=== PATIENT | male | born 1975 | race Caucasian/White ===

== ENCOUNTER 2018-04-09 08:41 | Outpatient (CLI) | payer OTHER, SELFPAY ==
[2018-04-09 10:04] LABS: Hemoglobin A1C 5.8 % (4.5-6.2)
[2018-04-09 10:17] LABS: ALT 63 U/L (12-78); AST 31 U/L (15-37); Albumin 3.8 g/dL (3.4-5.0); Alkaline Phosphatase 57 U/L (46-116); Anion Gap 6.1 mmol/L (3-11); BUN 13 mg/dL (7-18); Bilirubin, Total 0.7 mg/dL (0.2-1.0); CO2 30.9 mmol/L (21.0-32.0); CREATININE 0.99 mg/dL (0.70-1.30); Calcium 9.6 mg/dL (8.5-10.1); Chloride 103 mmol/L (98-107); Cholesterol 182 mg/dL (50-200); Glucose 107 mg/dL (70-100); HDL Cholesterol 37 mg/dL (40-60); LDL CHOLESTEROL 101 mg/dL (<100); Potassium 4.7 mmol/L (3.5-5.1); Sodium 140 mmol/L (136-145); Total Protein 7.2 g/dL (6.4-8.2); Triglyceride 219 mg/dL (30-150)
== END 2018-04-09 09:01 ==
PROVIDERS: PCP Family Medicine; Visit Provider Family Medicine
DX: Z00.00 Encounter for general adult medical examination without abnormal findings (principal); E78.5 Hyperlipidemia, unspecified
CPT/HCPCS: 36415; 80053; 80061; 83721; 83036

== ENCOUNTER 2018-08-27 01:58 | Outpatient (CLI) | payer OTHER, SELFPAY ==
--- NOTE | 2018-08-27 12:16 | DI.US_ITS ---
SYMPTOM/DIAGNOSIS: ENLARGING LEFT ANTERIOR CHAIN LYMPH NODE R59.0. CERVICAL LYMPHADENOPATHY ULTRASOUND OF THE NECK: Comparison is made with CT dated 05 June 2017. There is mass in the lateral left neck 7 cm inferior to the ear which has an irregular heterogeneous appearance. This was not seen on the previous CT. There is an adjacent lymph node which shows loss of fatty hilum and measures 1.4 cm in maximal dimension An additional 1.3 cm lymph node is seen. IMPRESSION: Suspicious appearing mass in the lateral aspect of the neck. Adjacent mildly enlarged lymph nodes. CT is recommended for further evaluation.
== END 2018-08-27 02:18 ==
PROVIDERS: PCP Family Medicine; Visit Provider Family Medicine
DX: R59.0 Localized enlarged lymph nodes (principal); R22.1 Localized swelling, mass and lump, neck
CPT/HCPCS: 76536

== ENCOUNTER 2018-09-11 07:58 | Outpatient (CLI) | payer OTHER, SELFPAY ==
[2018-09-11 08:32] LABS: Abs Immature Grans 0.01 k/cumm (0.0-0.09); Absolute Basophil Count 0.04 k/cumm (0.0-0.2); Absolute Eosinophil Count 0.29 k/cumm (0.0-0.7); Absolute Lymphocyte Count 1.88 k/cumm (1.2-3.4); Absolute Monocyte Count 0.47 k/cumm (0.11-0.7); Absolute Neutrophil Count 3.38 k/cumm (1.2-6.7); Basophils % 0.7; Eosinophils % 4.8; HCT 43.7 % (40.0-50.0); HGB 15.2 g/dL (13.5-17.5); Immature Grans % 0.2; Mean Corp. HGB Concentration 34.8 g/dL (32.0-36.0); Mean Corpuscular Hemoglobin 31.5 pg (27.0-33.0); Mean Corpuscular Volume 90.7 fL (80-95); Mean Platelet Volume 9.2 fL (8.0-11.0); Monocytes % 7.7; Neutrophils % 55.6; Platelet Count 192 x1000/uL (130-400); RBC 4.82 m/cumm (4.50-6.00); RBC Distribution Width 12.2 % (11.8-14.1); White Blood Cell Count 6.07 k/cumm (4.4-10.8)
== END 2018-09-11 08:18 ==
PROVIDERS: PCP Family Medicine; Visit Provider Family Medicine
DX: R22.1 Localized swelling, mass and lump, neck (principal)
CPT/HCPCS: 36415; 85025

== ENCOUNTER 2018-09-21 01:05 | Outpatient (CLI) | payer OTHER, SELFPAY ==
--- NOTE | 2018-09-21 08:47 | DI.CT_ITS ---
SYMPTOM/DIAGNOSIS: LEFT SIDED NECK MASS ON U/S OF NECK. R22.1 LOCALIZED SWELLING/MASS/LUMP CT NECK: Multiple contiguous axial images of the neck were obtained. Sagittal and coronal reformatted images were evaluated on the Siemens work station. Comparison is 06/2017 The nasopharynx, oral pharynx, hypopharynx and larynx are unremarkable. The parotid and submandibular glands are unremarkable. The thyroid gland is unremarkable. There has been interval increase in size of a soft tissue mass at the level of the left carotid bifurcation. It now measures 2.6 cm AP x 2.1 cm transverse x 3.2 cm craniocaudad. Previously it measured 1.7 x 1.4 cm Currently it compresses the adjacent left internal jugular vein. There is loss of a fat plane between the mass and the adjacent sternocleidomastoid muscle. The adjacent carotid arteries are unremarkable. There is an enlarged lymph node seen posteriorly and superiorly to the mass measuring 0.9 cm on a short axis. There are enlarged lymph nodes seen adjacent to the submandibular gland on the left measuring 1.2 cm in short axis diameter. No significant right cervical adenopathy is appreciated. The orbits and retro-orbital soft tissues are unremarkable. The visualized paranasal sinuses are clear as are the mastoid air cells. The bones are intact. The cervical spine appears grossly unremarkable. IMPRESSION: Nonenhancing soft tissue mass in the left neck which has shown interval increase in size. Differential considerations include infectious or inflammatory adenopathy, neoplasm or metastatic disease. Biopsy may be considered for further evaluation.
[2018-09-21] MEDS: Omnipaque 350 MG/ML 100 ML BTL IJ (09:37)
== END 2018-09-21 01:25 ==
PROVIDERS: PCP Family Medicine; Visit Provider Family Medicine
DX: R22.1 Localized swelling, mass and lump, neck (principal); R59.0 Localized enlarged lymph nodes
CPT/HCPCS: 70491; J3490

== ENCOUNTER 2018-12-31 13:44 | Outpatient (CLI) | payer OTHER, SELFPAY ==
[2018-12-31 14:16] LABS: CREATININE 1.04 mg/dL (0.70-1.30)
== END 2018-12-31 14:04 ==
PROVIDERS: PCP Family Medicine; Visit Provider Preventive Medicine Undersea and Hyperbaric Medicine
DX: C09.9 Malignant neoplasm of tonsil, unspecified (principal)
CPT/HCPCS: 36415; 82565

== ENCOUNTER 2019-01-04 12:52 | Outpatient (CLI) | payer OTHER, SELFPAY ==
[2019-01-04 13:18] LABS: Abs Immature Grans 0.01 k/cumm (0.0-0.09); Absolute Basophil Count 0.03 k/cumm (0.0-0.2); Absolute Lymphocyte Count 1.78 k/cumm (1.2-3.4); Absolute Monocyte Count 0.45 k/cumm (0.11-0.7); Basophils % 0.5; Eosinophils % 3.2; HCT 41.5 % (40.0-50.0); HGB 14.2 g/dL (13.5-17.5); Immature Grans % 0.2; Lymphocytes % 28.8; Mean Corp. HGB Concentration 34.2 g/dL (32.0-36.0); Mean Corpuscular Hemoglobin 30.9 pg (27.0-33.0); Mean Corpuscular Volume 90.4 fL (80-95); Mean Platelet Volume 8.7 fL (8.0-11.0); Monocytes % 7.3; Platelet Count 251 x1000/uL (130-400); RBC 4.59 m/cumm (4.50-6.00); RBC Distribution Width 12.4 % (11.8-14.1); White Blood Cell Count 6.17 k/cumm (4.4-10.8)
[2019-01-04 13:26] LABS: ALT 51 U/L (16-63); AST 18 U/L (15-37); Albumin 3.8 g/dL (3.4-5.0); Alkaline Phosphatase 56 U/L (46-116); BUN 9 mg/dL (7-18); Bilirubin, Total 0.4 mg/dL (0.2-1.0); CREATININE 1.03 mg/dL (0.70-1.30); Calcium 8.9 mg/dL (8.5-10.1); Chloride 105 mmol/L (98-107); Glucose 138 mg/dL (70-100); Magnesium 1.9 mg/dL (1.8-2.4); Potassium 3.7 mmol/L (3.5-5.1); Sodium 141 mmol/L (136-145); Total Protein 7.1 g/dL (6.4-8.2)
== END 2019-01-04 13:12 ==
PROVIDERS: PCP Family Medicine; Visit Provider Internal Medicine Hematology & Oncology
DX: C09.9 Malignant neoplasm of tonsil, unspecified (principal)
CPT/HCPCS: 80053; 83735; 85025

== ENCOUNTER 2019-01-18 10:47 | Outpatient (CLI) | payer OTHER, SELFPAY ==
[2019-01-18 11:27] LABS: Anion Gap 6.5 mmol/L (3-11); BUN 15 mg/dL (7-18); CO2 29.5 mmol/L (21.0-32.0); CREATININE 1.07 mg/dL (0.70-1.30); Calcium 8.7 mg/dL (8.5-10.1); Chloride 107 mmol/L (98-107); Glucose 109 mg/dL (70-100); Magnesium 1.9 mg/dL (1.8-2.4); Potassium 3.6 mmol/L (3.5-5.1); Sodium 143 mmol/L (136-145)
== END 2019-01-18 11:07 ==
PROVIDERS: PCP Family Medicine; Visit Provider Internal Medicine Hematology & Oncology
DX: C09.9 Malignant neoplasm of tonsil, unspecified (principal)
CPT/HCPCS: 36415; 80048; 83735

== ENCOUNTER 2019-01-25 09:27 | Outpatient (CLI) | payer OTHER, SELFPAY ==
[2019-01-25 10:23] LABS: Abs Immature Grans 0.01 k/cumm (0.0-0.09); Absolute Basophil Count 0.03 k/cumm (0.0-0.2); Absolute Eosinophil Count 0.13 k/cumm (0.0-0.7); Absolute Lymphocyte Count 0.83 k/cumm (1.2-3.4); Absolute Monocyte Count 0.69 k/cumm (0.11-0.7); Absolute Neutrophil Count 4.83 k/cumm (1.2-6.7); Basophils % 0.5; HCT 39.2 % (40.0-50.0); HGB 13.7 g/dL (13.5-17.5); Immature Grans % 0.2; Lymphocytes % 12.7; Mean Corp. HGB Concentration 34.9 g/dL (32.0-36.0); Mean Corpuscular Hemoglobin 31.6 pg (27.0-33.0); Mean Corpuscular Volume 90.3 fL (80-95); Mean Platelet Volume 8.5 fL (8.0-11.0); Monocytes % 10.6; Platelet Count 194 x1000/uL (130-400); RBC 4.34 m/cumm (4.50-6.00); RBC Distribution Width 11.4 % (11.8-14.1); White Blood Cell Count 6.52 k/cumm (4.4-10.8)
[2019-01-25 10:30] LABS: Anion Gap 5.4 mmol/L (3-11); BUN 16 mg/dL (7-18); CO2 29.6 mmol/L (21.0-32.0); CREATININE 1.19 mg/dL (0.70-1.30); Calcium 9.2 mg/dL (8.5-10.1); Chloride 101 mmol/L (98-107); Glucose 105 mg/dL (74-106); Magnesium 2.2 mg/dL (1.8-2.4); Potassium 4.4 mmol/L (3.5-5.1); Sodium 136 mmol/L (136-145)
== END 2019-01-25 09:47 ==
PROVIDERS: PCP Family Medicine; Visit Provider Internal Medicine Hematology & Oncology
DX: C09.9 Malignant neoplasm of tonsil, unspecified (principal)
CPT/HCPCS: 36415; 80048; 83735; 85025

== ENCOUNTER 2019-01-30 11:38 | Outpatient (CLI) | payer OTHER, SELFPAY ==
[2019-01-30 12:28] LABS: Abs Immature Grans 0.01 k/cumm (0.0-0.09); Absolute Basophil Count 0.01 k/cumm (0.0-0.2); Absolute Eosinophil Count 0.05 k/cumm (0.0-0.7); Absolute Lymphocyte Count 0.52 k/cumm (1.2-3.4); Absolute Monocyte Count 0.16 k/cumm (0.11-0.7); Absolute Neutrophil Count 6.17 k/cumm (1.2-6.7); Basophils % 0.1; Eosinophils % 0.7; HCT 36.8 % (40.0-50.0); HGB 12.5 g/dL (13.5-17.5); Immature Grans % 0.1; Lymphocytes % 7.5; Mean Corpuscular Hemoglobin 31.1 pg (27.0-33.0); Mean Corpuscular Volume 91.5 fL (80-95); Mean Platelet Volume 8.7 fL (8.0-11.0); Monocytes % 2.3; Neutrophils % 89.3; Platelet Count 185 x1000/uL (130-400); RBC 4.02 m/cumm (4.50-6.00); White Blood Cell Count 6.92 k/cumm (4.4-10.8)
[2019-01-30 12:40] LABS: Anion Gap 7.1 mmol/L (3-11); BUN 10 mg/dL (7-18); CO2 29.9 mmol/L (21.0-32.0); CREATININE 0.96 mg/dL (0.70-1.30); Calcium 8.7 mg/dL (8.5-10.1); Chloride 103 mmol/L (98-107); Glucose 100 mg/dL (74-106); Magnesium 1.9 mg/dL (1.8-2.4); Potassium 4.4 mmol/L (3.5-5.1); Sodium 140 mmol/L (136-145)
== END 2019-01-30 11:58 ==
PROVIDERS: PCP Family Medicine; Visit Provider Internal Medicine Hematology & Oncology
DX: C09.9 Malignant neoplasm of tonsil, unspecified (principal)
CPT/HCPCS: 36415; 80048; 83735; 85025

== ENCOUNTER 2019-02-06 08:21 | Outpatient (CLI) | payer OTHER, SELFPAY ==
[2019-02-06 08:40] LABS: Absolute Basophil Count 0.01 k/cumm (0.0-0.2); Absolute Eosinophil Count 0.14 k/cumm (0.0-0.7); Absolute Lymphocyte Count 0.55 k/cumm (1.2-3.4); Absolute Monocyte Count 0.54 k/cumm (0.11-0.7); Absolute Neutrophil Count 1.29 k/cumm (1.2-6.7); Basophils % 0.4; Eosinophils % 5.5; HCT 38.9 % (40.0-50.0); HGB 13.4 g/dL (13.5-17.5); Lymphocytes % 21.7; Mean Corp. HGB Concentration 34.4 g/dL (32.0-36.0); Mean Corpuscular Hemoglobin 31.2 pg (27.0-33.0); Mean Corpuscular Volume 90.5 fL (80-95); Mean Platelet Volume 7.7 fL (8.0-11.0); Monocytes % 21.3; Neutrophils % 51.1; Platelet Count 163 x1000/uL (130-400); RBC Distribution Width 12.2 % (11.8-14.1); White Blood Cell Count 2.53 k/cumm (4.4-10.8)
[2019-02-06 08:52] LABS: ALT 46 U/L (16-63); AST 30 U/L (15-37); Albumin 3.5 g/dL (3.4-5.0); Alkaline Phosphatase 59 U/L (46-116); BUN 11 mg/dL (7-18); Bilirubin, Total 0.3 mg/dL (0.2-1.0); CREATININE 1.06 mg/dL (0.70-1.30); Calcium 9.2 mg/dL (8.5-10.1); Chloride 101 mmol/L (98-107); Glucose 110 mg/dL (74-106); Potassium 3.9 mmol/L (3.5-5.1); Sodium 138 mmol/L (136-145); Total Protein 7.2 g/dL (6.4-8.2)
== END 2019-02-06 08:41 ==
PROVIDERS: PCP Family Medicine; Visit Provider Internal Medicine Hematology & Oncology
DX: C09.9 Malignant neoplasm of tonsil, unspecified (principal)
CPT/HCPCS: 36415; 80053; 83735; 85025

== ENCOUNTER 2019-02-07 10:26 | Observation (INO) | payer OTHER, SELFPAY ==
[2019-02-07] VITALS (7 sets, daily range): BP systolic 111–116; BP diastolic 65–73; PULSE 71–89; RESP 12–18; TEMP 36.3–37.4; O2SAT 98–99
[2019-02-07 11:24] LABS: Lactate 2.8 mmol/L (0.6-1.4)
[2019-02-07 11:26] LABS: Abs Immature Grans 0.01 k/cumm (0.0-0.09); Absolute Basophil Count 0.01 k/cumm (0.0-0.2); Absolute Lymphocyte Count 0.13 k/cumm (1.2-3.4); Absolute Monocyte Count 0.46 k/cumm (0.11-0.7); Basophils % 0.2; Eosinophils % 4.2; HGB 12.3 g/dL (13.5-17.5); Immature Grans % 0.2; Lymphocytes % 2.8; Mean Corp. HGB Concentration 34.2 g/dL (32.0-36.0); Mean Corpuscular Volume 90.7 fL (80-95); Mean Platelet Volume 8.3 fL (8.0-11.0); Monocytes % 9.8; Neutrophils % 82.8; Platelet Count 125 x1000/uL (130-400); RBC 3.97 m/cumm (4.50-6.00); RBC Distribution Width 12.3 % (11.8-14.1); White Blood Cell Count 4.71 k/cumm (4.4-10.8)
[2019-02-07] MEDS: Acetaminophen 500 MG TAB 1000 MG PO (11:34)
[2019-02-07] MEDS: Normal Saline Flush 10 ML SYR IVP ×2 (11:34→17:08)
[2019-02-07] MEDS: Normal Saline 1,000 ML 1000 ML IV ×2 (11:34→14:46)
[2019-02-07] MEDS: Ondansetron 4 MG/2 ML VIAL IVP ×2 (11:35→14:44)
[2019-02-07 11:39] LABS: ALT 49 U/L (16-63); AST 33 U/L (15-37); Albumin 3.1 g/dL (3.4-5.0); Alkaline Phosphatase 54 U/L (46-116); Anion Gap 8.2 mmol/L (3-11); BUN 17 mg/dL (7-18); Bilirubin, Total 0.2 mg/dL (0.2-1.0); CO2 25.8 mmol/L (21.0-32.0); CREATININE 1.42 mg/dL (0.70-1.30); Calcium 8.8 mg/dL (8.5-10.1); Chloride 102 mmol/L (98-107); Estimated GFR 54.41 (mL/min/1.73m2); Glucose 147 mg/dL (74-106); Potassium 4.2 mmol/L (3.5-5.1); Sodium 136 mmol/L (136-145); Total Protein 6.6 g/dL (6.4-8.2)
--- NOTE | 2019-02-07 11:39 | ED.GENADUL_ITS ---
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 Patient is currently undergoing radiation as well as chemotherapy. Patient has received a second dose of chemo yesterday. Patient's initial dose was 3 weeks ago. Patient is undergoing radiation 5 days a week Monday to Monday. Patient reports after yesterday's dose of chemotherapy in the evening he began to have generalized malaise and feverish sensation associated with shaking chills last night. Patient did have several episodes of dry heaving. Patient does report a sore throat but no si gnificant increase in pain compared to his previous he noted sore throat. Patient denies any swelling of his neck. No difficulty breathing or shortness of breath or wheezing. Patient does have a cough which is dry nonproductive. Again no associated chest pain or difficulty breathing. Patient denies abdominal pain, no associated bowel changes. Patient spoke with his chemo doctors office today who recommended he come to the emergency room for further evaluation. He does have a scheduled appointment with his chemotherapy doctor tomorrow, Dr. George. On initial evaluation this patient appears quite flushed and somewhat ill- appearing. He has no measured temperature at this time. Patient's vital signs are stable on initial evaluation. Given patient's presentation, ill appearance in conjunction to complaints of overnight fever and shaking chills will evaluate for fever and potentially immunocompromised patient including flu, strep, urine, chest x-ray, labs including lactate and blood cultures. Patient to be very provided IV fluid as he does appear dehydrated and feels dehydrated. Nausea meds provided. Patient does report difficulty with maintaining p.o. intake as he has no sense of taste and food aversion. Patient labs reveal a normal white blood cell count. No significant shift or bandemia. Patient's electrolytes are within normal limit. Creatinine is elevated compared to normal yesterday. Creatinine of 1.42 today compared to 1.06 yesterday. Likely d/t dehydration. Chest x-ray revealing no obvious infiltrate. Rapid strep and flu testing are negative. Patient has a lactate of 2.8 at this time I spoke with Dr. Chiara Kaye of [facility] oncology who agrees with initial plan of care. Discussed elevated lactate and patient's labs today. She does recommend a CT of the neck without contrast to be sure there are no obvious indications of abscess or infection as patient has not had recent CT scan per her records. She also recommends generous use of Zofran with Compazine and possibly lorazepam if needed to control nausea. Patient was offered additional nausea medication initially and declines. She does recommend admission to the hospital for observation given lactate elevation. She reports possibly this is due to toxicity after having a subsequent dose of cisplatin or due to developing infection. They do not recommend antibiotic treatment initiation at this time rather close observation. Patient CT scan of neck reveals EXAM: CT NECK WO CLINICAL HISTORY: pain, malaise, on chemo r/o abscess TECHNIQUE: Images were performed from the aortic arch through the mastoids without IV contrast. Lack of IV contrast does limit the exam. COMPARISON: CT neck w from 09/21/2018 FINDINGS: There is no evidence of an abscess. There are enlarged lymph nodes on both sides of the neck. There is fullness in the left supraglottic region, which could represent post treatment changes versus mass. IMPRESSION: No evidence of an abscess. Fullness in the left supraglottic region. Bilateral cervical adenopathy. Spoke with hospitalist, will admit for observation. HPI General Date/Time Provider Initiated Documentation: 02/07/19 10:27 . HPI Narrative: This is a very pleasant 43-year-old gentleman who presents for onset of vomiting and fever last night. 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 Patient received chemotherapy yesterday for the second time. His scheduled chemo is every 3 weeks. Receiving radiation 5 days a week. Patient reports after receiving chemotherapy yesterday he had onset of malaise, shaking chills, feverish sensation this morning, no objective fevers and several episodes of dry heaving overnight. Patient does report persistent nausea at this time. Denies abdominal or chest pain. Denies back pain. Denies changes in urination however is making slightly less urine and does feel somewhat dehydrated at this time. Patient has taken no medications today. Related Data Home Medications Medication Instructions Recorded Confirmed multivitamin with minerals [One 1 ea PO DAILY 10/01/12 02/07/19 Daily Complete] atorvastatin 40 mg tablet 40 mg PO DAILY #90 tab-cap 07/23/18 02/07/19 Previous Rx's Medication Instructions Recorded atorvastatin 40 mg tablet 40 mg PO DAILY #90 tab-cap 07/23/18 Allergies Allergy/AdvReac Type Severity Reaction Status Date / Time MAGNESIUM SILICAT Allergy Intermediate ITCHING Uncoded 02/07/19 10:41 General Stated Complaint: Fever MARYBETH: 3 Review of Systems All systems reviewed & are unremarkable except as noted in HPI and below Constitutional Constitutional: Reports chills, Denies fatigue, Reports fever(s), Reports headache(s) and Reports malaise ENT Ears, Nose, Mouth, and Throat: Reports headache(s) and Reports sore throat Cardiovascular Cardiovascular: Denies chest pain Respiratory Respiratory: Reports cough Gastrointestinal Gastrointestinal: Denies abdominal pain, Reports nausea and Reports vomiting Genitourinary Genitourinary: Denies dysuria, Denies urinary frequency and Denies urinary urgency Integumentary/Breasts Skin/Breast: Denies rash Neurologic Neurologic: Reports headache(s) Endocrine Endocrine: Denies fatigue [facility] Social History Smoking/Tobacco Use Status: Never Alcohol Intake: current Alcohol Intake frequency: a few times a month Drug use: Never Do you feel safe at home: Yes Do you feel safe in your relationship?: Yes Exam Narrative Exam Narrative: CONST: Flushed, in no acute distress. Alert and alert. HENMT: Head nomocephalic, normal to inspection. Atraumatic. Hearing grossly normal. External ear canals appear normal. TM mild erythema bilaterally with small effusion in the left ear. Nose normal to inspection. No rhinnorhea. Normal facial exam. Oral mucosa normal. Tounge normal. Dentition normal. Erythema, inflammatory changes noted to the posterior oropharynx. Uvula erythema EYES: General normal appearance. Alignment normal. Eyelids normal. Conjunctiva normal. Sclera normal. PERRL. NECK: Normal visual inspection. FROM. Mild fullness to the left lateral neck without fluctuation. Trachea midline. No Midline tenderness. CHEST: Normal insepection of the chest. RESP: Normal respiratory effort. Speaking full sentences. No cough. No wheezing. No retractions. Clear to auscaltation. Breath sound equal and present bilaterally. CARDIO: No JVD. Normal PMI. Regular Rate. Regular Rhythm. Normal peripheral pulses. GI: Normal inspection of abdomen. No distension. Soft. Nontender. Bowel sounds present in all 4 quadrants. No rebound. No gaurding. SKIN: Normal. Dry. No rashes. Course Vital Signs Vital signs: Vital Signs Temperature 37.4 C 02/07/19 10:35 Pulse 89 02/07/19 10:35 Respiratory Rate 12 02/07/19 10:35 Blood Pressure 111/66 02/07/19 10:35 Pulse Oximetry 98 02/07/19 10:35 Temperature 37.4 C 02/07/19 10:35 Temperature Source Skin 02/07/19 10:35 Pulse 89 02/07/19 10:35 Respiratory Rate 12 02/07/19 10:35 Respiratory Effort 02/07/19 10:42 Blood Pressure 111/66 02/07/19 10:35 Pulse Oximetry 98 02/07/19 10:35 Oxygen Delivery Method Room Air 02/07/19 10:35 Oxygen Flow Rate 0 02/07/19 10:35 Pain Level 4 02/07/19 10:35 Lab/Test Results Lab/Test Results: 02/07/19 11:27 Pharynx Streptococcus Screen (RADHA) - Pending 02/07/19 11:06 Urine - Clean Catch Urine Culture - Pending 02/07/19 11:01 Blood Blood Culture - Pending 02/07/19 11:01 Blood Blood Culture - Pending Laboratory Tests Range/Units 02/07/19 02/07/19 11:15 11:15 WBC (4.4-10.8) k/cumm 4.71 D RBC (4.50-6.00) m/cumm 3.97 L Hgb (13.5-17.5) g/dL 12.3 L Hct (40.0-50.0) % 36.0 L MCV (80-95) fL 90.7 MCH (27.0-33.0) pg 31.0 MCHC (32.0-36.0) g/dL 34.2 RDW (11.8-14.1) % 12.3 Plt Count (130-400) x1000/uL 125 L MPV (8.0-11.0) fL 8.3 Immature Gran % 0.2 Neutrophils % 82.8 Lymphocytes % 2.8 Monocytes % 9.8 Eosinophils % 4.2 Basophils % 0.2 Absolute Neutrophils (1.2-6.7) k/cumm 3.90 Absolute Lymphocytes (1.2-3.4) k/cumm 0.13 L Absolute Monocytes (0.11-0.7) k/cumm 0.46 Absolute Eosinophils (0.0-0.7) k/cumm 0.20 Absolute Basophils (0.0-0.2) k/cumm 0.01 Lactate (0.6-1.4) mmol/L 2.8 H* POC Strep Test-ANTONIO(Rapid) Start: 02/07/19 11:01 Freq: .Rapid Strep Test Status: Active Protocol: Document 02/07/19 11:27 (Rec: 02/07/19 11:27 [id number]) Strep test-ANTONIO(Rapid)-POC POC-Strep test-ANTONIO (Rapid) Negative POC-Strep test-ANTONIO (Rapid) Negative
--- NOTE | 2019-02-07 12:27 | DI.RAD_ITS ---
EXAM: XR CHEST 2V PA AND LATERAL INDICATION: cough, on chemo. COMPARISON: No exams were available for comparison TECHNIQUE: 2D digital imaging was performed. FINDINGS: Heart size is normal. The lungs are well inflated and clear. No infiltrate or effusion is seen. IMPRESSION: Negative chest x-ray.
--- NOTE | 2019-02-07 13:30 | DI.CT_ITS ---
EXAM: CT NECK WO CLINICAL HISTORY: pain, malaise, on chemo r/o abscess TECHNIQUE: Images were performed from the aortic arch through the mastoids without IV contrast. La ck of IV contrast does limit the exam. COMPARISON: CT neck w from 09/21/2018 FINDINGS: There is no evidence of an abscess. There are enlarged lymph nodes on both sides of the neck. Ther e is fullness in the left supraglottic region, which could represent post treatment changes versus ma ss. IMPRESSION: No evidence of an abscess. Fullness in the left supraglottic region. Bilateral cervical adenopathy.
[2019-02-07] MEDS: guaiFENesin 200 MG/10 ML CUP (14:44)
[2019-02-07 15:05] LABS: Lactate 1.4 mmol/L (0.6-1.4)
--- NOTE | 2019-02-07 16:23 | HPE_ITS ---
Date of service: 02/07/19 Time of Service: 16:23 Assessment and Plan Assessment and plan (1) Squamous cell carcinoma of head and neck: Status: Acute Assessment and plan: With left tonsillar mass. He reports that the mass has decreased in size with his treatments. Yesterday he had the second of 3 ch emo treatments. His final chemo is scheduled for 02/26/2019. He continues with radiation treatments, expected to continue into March. No fever since he has been at the hospital. No leukocytosis, he is not neutropenic. Urinalysis pending. Blood cultures pending. He remains nauseated. He will have Zofran, Compazine and lorazepam available as needed for nausea. Continue IV fluids. Repeat lactate normalized. Reassess kidney function in the morning. (2) CHRIS (acute kidney injury): Status: Acute Assessment and plan: His creatinine is elevated to 1.42 today from 1.06 yesterday. Urinalysis pending. This is likely in the setting of dehydration. Continue IV fluids overnight. Reassess kidney function in the morning. (3) Hyperlipidemia: Status: Acute Assessment and plan: Continue atorvastatin. (4) DVT prophylaxis: Status: Acute Assessment and plan: Subcutaneous Lovenox for chemical DVT prophylaxis. SCDs and teds. (5) Discharge planning issues: Status: Acute Assessment and plan: He is a full code. Provide supportive care overnight, possibly for discharge tomorrow if his blood cultures remain negative. This case was discussed with Dr. Singer who is in agreement. 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 He received chemo yesterday, dose of 2/3 total doses. He is receiving daily radiation. Last night, after his chemo he began to have a fever as high as 101.9, with shakes and chills, as well as nausea and dry heaving. He had been instructed call Abdifatah Jarrell if he experienced fevers, which he did and was advised to go to the ED. He presented today with ongoing nausea and sore throat. In the ED, his influenza swab was negative, rapid strep was negative, chest x- ray negative for acute process. His labs were notable for a normal white blood cell count, creatinine was mildly elevated at 1.42, lactate was elevated at 2.8. Urinalysis is pending, blood cultures are pending. The emergency department attending provider spoke to Dr. Chiara Kaye, [facility] oncology, who recommended a CT neck to rule out abscess or infection and supportive care with Zofran, Compazine, lorazepam if needed for nausea. Oncology did not recommend antibiotic initiation at this point. His CT neck did not show an abscess, there were enlarged bilateral cervical lymph nodes, fullness was noted in the left supraglottic region. He is admitted to the [facility] floor for further observation and management. At the time of his admission, he continues to have nausea, he denies pain. He reports he generally feels nauseated and unwell after chemo. He reports having a cough that is not particularly productive, occasionally he brings up frothy sputum. He does not have difficulty swallowing, however, food occasionally feels like it gets stuck. It is unpleasant for him to eat and food does not taste good to him. He denies shortness of breath, or any difficulty breathing, wheezing, chest pain/pressure, palpitations, abdominal pain. He denies any difficulty with his bowels or bladder function. Review of Systems All systems reviewed & are unremarkable except as noted in HPI and below [facility] Medical History (Updated 02/07/19 @ 17:04 by Candi Quintanilla NP) Hyperlipidemia (Acute) Squamous cell carcinoma of head and neck (Acute) Surgical History KNEE SURGERY 02/2011 RIGHT Nasal septoplasty Social History Smoking/Tobacco Use Status: Never Alcohol Intake: current Alcohol Intake frequency: a few times a month Drug use: Never Do you feel safe at home: Yes Do you feel safe in your relationship?: Yes Meds Home Medications and Allergies Home Medications Medication Instructions Recorded Confirmed Type multivitamin with minerals [One 1 ea PO DAILY 10/01/12 02/07/19 History Daily Complete] atorvastatin 40 mg tablet 40 mg PO DAILY #90 tab-cap 07/23/18 02/07/19 Rx Allergies Allergy/AdvReac Type Severity Reaction Status Date / Time MAGNESIUM SILICAT Allergy Intermediate ITCHING Uncoded 02/07/19 10:41 Exam Narrative Exam Narrative: General: 43-year-old man, appears stated age, alert and oriented, pleasant cooperative, hoarseness to voice. Answers questions appropriately. HEENT: Face is flushed, atraumatic, pupils equal round and reactive to light, extraocular movements intact, mucous membranes moist. No oral lesions noted. Neck: Neck read related to radiation, no lesions. Fullness to the left neck, bilateral lymphadenopathy L>R. Supple. Cardiovascular: Heart has regular rate and rhythm, no murmur appreciated. Respiratory: Respirations even and unlabored, lung sounds clear to auscultation bilaterally. GI: Abdomen soft, nontender on palpation, normal active bowel sounds throughout. Extremities: No clubbing, cyanosis or edema. Pedal pulses are palpable bilaterally. No calf swelling or tenderness. Results Labs Result diagrams: 02/07/19 11:15 02/07/19 11:15 Labs: Laboratory Results - last 24 hr 02/07/19 02/07/19 02/07/19 11:15 11:15 11:15 WBC 4.71 D RBC 3.97 L Hgb 12.3 L Hct 36.0 L MCV 90.7 MCH 31.0 MCHC 34.2 RDW 12.3 Plt Count 125 L MPV 8.3 Immature Gran % 0.2 Neutrophils % 82.8 Lymphocytes % 2.8 Monocytes % 9.8 Eosinophils % 4.2 Basophils % 0.2 Absolute Neutrophils 3.90 Absolute Lymphocytes 0.13 L Absolute Monocytes 0.46 Absolute Eosinophils 0.20 Absolute Basophils 0.01 Sodium 136 Potassium 4.2 Chloride 102 Carbon Dioxide 25.8 Anion Gap 8.2 BUN 17 D Creatinine 1.42 H Estimated GFR/1.73 m2 54.41 Glucose 147 H Lactate 2.8 H* Calcium 8.8 Total Bilirubin 0.2 AST 33 ALT 49 Alkaline Phosphatase 54 Total Protein 6.6 Albumin 3.1 L 02/07/19 15:00 WBC RBC Hgb Hct MCV MCH MCHC RDW Plt Count MPV Immature Gran % Neutrophils % Lymphocytes % Monocytes % Eosinophils % Basophils % Absolute Neutrophils Absolute Lymphocytes Absolute Monocytes Absolute Eosinophils Absolute Basophils Sodium Potassium Chloride Carbon Dioxide Anion Gap BUN Creatinine Estimated GFR/1.73 m2 Glucose Lactate 1.4 Calcium Total Bilirubin AST ALT Alkaline Phosphatase Total Protein Albumin Last Vital Signs Temp 36.8 C 02/07/19 16:14 Pulse 81 02/07/19 16:14 Resp 18 02/07/19 16:14 BP 116/69 02/07/19 16:14 Pulse Ox 99 02/07/19 16:14
[2019-02-07 16:54] LABS: Bilirubin Negative (Negative); Blood Negative (Negative); Clarity Clear (Clear); Glucose Negative (Negative); Ketones Negative (Negative); Leukocyte Esterase Negative (Negative); Nitrite Negative (Negative); Specific Gravity 1.025 (1.005-1.025); Urobilinogen 0.2 EU/dL (Up TO 0.2); pH 5.5 (5-8)
[2019-02-07] MEDS: Pantoprazole 40 MG VIAL IVP (17:08)
[2019-02-07] MEDS: Normal Saline 1,000 ML 125 ML IV (17:08)
[2019-02-07] MEDS: guaiFENesin 600 MG TABCR PO (19:46)
[2019-02-07] MEDS: Atorvastatin 40 MG TAB PO (19:46)
[2019-02-08] MEDS: Normal Saline 1,000 ML 125 ML IV ×2 (00:31→08:19)
[2019-02-08 00:50] VITALS: BP 145/68; PULSE 77; RESP 18; TEMP 37; O2SAT 100
[2019-02-08 04:13] VITALS: BP 120/77; PULSE 72; RESP 18; TEMP 36.7; O2SAT 99
[2019-02-08 07:41] LABS: Lactate 0.7 mmol/L (0.6-1.4)
[2019-02-08 07:44] LABS: Absolute Lymphocyte Count 0.27 k/cumm (1.2-3.4); Absolute Neutrophil Count 2.23 k/cumm (1.2-6.7); Eosinophils % 9.1; HCT 37.4 % (40.0-50.0); HGB 12.7 g/dL (13.5-17.5); Lymphocytes % 8.2; Mean Corpuscular Hemoglobin 31.1 pg (27.0-33.0); Mean Corpuscular Volume 91.7 fL (80-95); Mean Platelet Volume 8.2 fL (8.0-11.0); Monocytes % 15.2; Neutrophils % 67.5; Platelet Count 118 x1000/uL (130-400); RBC 4.08 m/cumm (4.50-6.00); RBC Distribution Width 12.5 % (11.8-14.1)
[2019-02-08 07:55] VITALS: BP 116/71; PULSE 66; RESP 17; TEMP 37.1; O2SAT 98
[2019-02-08 08:07] LABS: Anion Gap 6.8 mmol/L (3-11); BUN 13 mg/dL (7-18); CO2 25.2 mmol/L (21.0-32.0); CREATININE 1.09 mg/dL (0.70-1.30); Calcium 8.1 mg/dL (8.5-10.1); Chloride 107 mmol/L (98-107); Glucose 99 mg/dL (74-106); Magnesium 1.9 mg/dL (1.8-2.4); Potassium 4.5 mmol/L (3.5-5.1); Sodium 139 mmol/L (136-145)
[2019-02-08] MEDS: Multivitamin w/Minerals TAB 1 TAB PO (08:20)
[2019-02-08] MEDS: guaiFENesin 600 MG TABCR PO (08:20)
--- NOTE | 2019-02-08 10:08 | DSE_ITS ---
Date of service: 02/08/19 Time of Service: 10:15 DS: Diagnosis Discharge Diagnosis (1) Squamous cell carcinoma of head and neck: Start date: 02/08/19 Start time: 10:16 Status: Acute Asessment and Plan: Pain improved, nausea improved. Appointment with oncology today. Has had IVF since admission. (2) CHRIS (acute kidney injury): Start date: 02/08/19 Start time: 10:17 Status: Acute Asessment and Plan: Resolved. 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 He received chemo 02/06, dose of 2/3 total doses. He is receiving daily radiation. He was admitted to m/s from [facility] ED for post chemo fever, rigors, nausea and dry heaving. His oncologist was called and recommended holding antibiotics, compazine/zofran and ativan for nausea. Blood cultures were done, NG after 24 hours urine was done with NGTD. He is slightly nauseated but refusing meds at this time. He has an appt today for radiation. He received over a liter of NS while admitted and would like to be discharged to go to his appt. He has been afebrile, no leukocytosis and Negative cultures he will discharged home. He will be given script for ativan and compazine liquid as needed. He denies CP, SOB, N/V/D. Home Meds and New Rx's Prescriptions: New lorazepam 2 mg/mL concentrate 1 mg PO BID PRN (Reason: nausea and vomiting) Qty: 30 RF: 0 Continued multivitamin with minerals [One Daily Complete] 1 EACH tablet 1 ea PO DAILY RF: 0 atorvastatin 40 mg tablet 40 mg PO DAILY Qty: 90 RF: 3 Discharge Instructions Instructions: Oral Mucositis (GEN), Chemo Induced Nausea and Vomiting (GEN) Additional Instructions: Follow up with oncology Take oral ativan with zofran when feeling nauseated Use magic mouthwash Seek medical attention if you have Chest pain, shortness of breath, fever, chills or worsening symptoms Activity:: Activity as Tolerated Activity:: Activity as Tolerated Equipment/Supplies:: No Equipment Needed Diet:: As Tolerated DS: Summary Status at Discharge Functional status at discharge: independent ambulation Overall status at discharge: patient is back to baseline Mental Status: mental status grossly normal Speech and Movement: speech and movement normal Mood: congruent mood Affect: normal affect Exam Narrative Exam Narrative: General: 43-year-old man, appears stated age, alert and oriented, pleasant cooperative, hoarseness to voice. Answers questions appropriately. HEENT: atraumatic, pupils equal round and reactive to light, extraocular movements intact, mucous membranes moist. No oral lesions noted. Neck: Neck read related to radiation, no lesions. Fullness to the left neck, bilateral lymphadenopathy L>R. Supple. Cardiovascular: Heart has regular rate and rhythm, no murmur appreciated. Respiratory: Respirations even and unlabored, lung sounds clear to auscultation bilaterally. GI: Abdomen soft, nontender on palpation, normal active bowel sounds throughout. Extremities: No clubbing, cyanosis or edema. Pedal pulses are palpable bilaterally. No calf swelling or tenderness. Psych Mental Status: mental status grossly normal Speech and Movement: speech and movement normal Mood: congruent mood Affect: normal affect DS: Data Vitals/I&O Vitals and I&O: Vital Signs Temperature 37.1 C 02/08/19 07:55 Temperature Source Tympanic 02/08/19 07:55 Pulse 66 02/08/19 07:55 Pulse Rhythm Regular 02/08/19 01:58 Respiratory Rate 17 02/08/19 07:55 Respiratory Effort Non-Labored 02/08/19 01:58 Respiratory Depth Normal 02/08/19 01:58 Respiratory Pattern Normal 02/07/19 19:53 Blood Pressure 116/71 02/08/19 07:55 Pulse Oximetry 98 02/08/19 07:55 Oxygen Delivery Method Room Air 02/08/19 07:55 Oxygen Flow Rate 0 02/08/19 07:55 Pain Level 0 02/08/19 07:55 Intake & Output 02/07/19 02/07/19 02/08/19 11:59 23:59 11:59 Intake Total 2360 / 2360 1897.917 / 1897.917 Output Total 270 / 270 Balance 2089 / 2089 1897.917 / 1897.917 Weight 89.7 kg 91.5 kg Intake: IV 1999 1897.917 / 1897.917 Oral 360 / 360 Output: Urine 270 / 270 Other: Urine Color Dark Kaylene Yellow Urine Appearance Clear Clear Urine Odor Normal None Voiding Methods Urinal Toilet Data Completed and Pending Completed studies during hospitalization [Text1]: Exam(s) a RAD:XR chest 2V PA & lateral EXAM: XR CHEST 2V PA AND LATERAL INDICATION: cough, on chemo. COMPARISON: No exams were available for comparison TECHNIQUE: 2D digital imaging was performed. FINDINGS: Heart size is normal. The lungs are well inflated and clear. No infiltrate or effusion is seen. IMPRESSION: Negative chest x-ray. Exam(s) a CT:CT neck wo EXAM: CT NECK WO CLINICAL HISTORY: pain, malaise, on chemo r/o abscess TECHNIQUE: Images were performed from the aortic arch through the mastoids without IV contrast. Lack of IV contrast does limit the exam. COMPARISON: CT neck w from 09/21/2018 FINDINGS: There is no evidence of an abscess. There are enlarged lymph nodes on both sides of the neck. There is fullness in the left supraglottic region, which could represent post treatment changes versus mass. IMPRESSION: No evidence of an abscess. Fullness in the left supraglottic region. Bilateral cervical adenopathy. Labs on day of discharge: Labs from last 24 hours 02/08/19 02/08/19 02/08/19 07:30 07:30 07:30 WBC 3.30 L RBC 4.08 L Hgb 12.7 L Hct 37.4 L MCV 91.7 MCH 31.1 MCHC 34.0 RDW 12.5 Plt Count 118 L MPV 8.2 Immature Gran % 0.0 Neutrophils % 67.5 Lymphocytes % 8.2 Monocytes % 15.2 Eosinophils % 9.1 Basophils % 0.0 Absolute Neutrophils 2.23 Absolute Lymphocytes 0.27 L Absolute Monocytes 0.50 Absolute Eosinophils 0.30 Absolute Basophils 0.00 Sodium 139 Potassium 4.5 Chloride 107 Carbon Dioxide 25.2 Anion Gap 6.8 BUN 13 Creatinine 1.09 Estimated GFR/1.73 m2 >= 60.00 Glucose 99 Lactate 0.7 Calcium 8.1 L Magnesium 1.9 Total Bilirubin AST ALT Alkaline Phosphatase Total Protein Albumin Urine Color Urine Clarity Urine pH Ur Specific [place] Urine Protein Urine Ketones Urine Blood Urine Nitrite Urine Bilirubin Urine Urobilinogen Ur Leukocyte Esterase Urine Glucose 02/07/19 02/07/19 02/07/19 16:15 15:00 11:15 WBC RBC Hgb Hct MCV MCH MCHC RDW Plt Count MPV Immature Gran % Neutrophils % Lymphocytes % Monocytes % Eosinophils % Basophils % Absolute Neutrophils Absolute Lymphocytes Absolute Monocytes Absolute Eosinophils Absolute Basophils Sodium Potassium Chloride Carbon Dioxide Anion Gap BUN Creatinine Estimated GFR/1.73 m2 Glucose Lactate 1.4 2.8 H* Calcium Magnesium Total Bilirubin AST ALT Alkaline Phosphatase Total Protein Albumin Urine Color Yellow Urine Clarity Clear Urine pH 5.5 Ur Specific [place] 1.025 Urine Protein Negative Urine Ketones Negative Urine Blood Negative Urine Nitrite Negative Urine Bilirubin Negative Urine Urobilinogen 0.2 Ur Leukocyte Esterase Negative Urine Glucose Negative 02/07/19 02/07/19 11:15 11:15 WBC 4.71 D RBC 3.97 L Hgb 12.3 L Hct 36.0 L MCV 90.7 MCH 31.0 MCHC 34.2 RDW 12.3 Plt Count 125 L MPV 8.3 Immature Gran % 0.2 Neutrophils % 82.8 Lymphocytes % 2.8 Monocytes % 9.8 Eosinophils % 4.2 Basophils % 0.2 Absolute Neutrophils 3.90 Absolute Lymphocytes 0.13 L Absolute Monocytes 0.46 Absolute Eosinophils 0.20 Absolute Basophils 0.01 Sodium 136 Potassium 4.2 Chloride 102 Carbon Dioxide 25.8 Anion Gap 8.2 BUN 17 D Creatinine 1.42 H Estimated GFR/1.73 m2 54.41 Glucose 147 H Lactate Calcium 8.8 Magnesium Total Bilirubin 0.2 AST 33 ALT 49 Alkaline Phosphatase 54 Total Protein 6.6 Albumin 3.1 L Urine Color Urine Clarity Urine pH Ur Specific [place] Urine Protein Urine Ketones Urine Blood Urine Nitrite Urine Bilirubin Urine Urobilinogen Ur Leukocyte Esterase Urine Glucose 02/07/19 16:30 Urine - Clean Catch Urine Culture - Pending 02/07/19 12:15 Blood Blood Culture - Pending 02/07/19 11:26 Blood Blood Culture - Pending 02/07/19 11:10 Pharynx Streptococcus Screen (RADHA) - Pending Preliminary micro results at discharge 02/07/19 16:30 Urine Culture - Pending Urine - Clean Catch 02/07/19 12:15 Blood Culture - Pending Blood 02/07/19 11:26 Blood Culture - Pending Blood 02/07/19 11:10 Streptococcus Screen (RADHA) - Pending Pharynx [facility] Medical History Hyperlipidemia (Acute) Squamous cell carcinoma of head and neck (Acute) Surgical History KNEE SURGERY 02/2011 RIGHT Nasal septoplasty Family History Mother No problems noted. Father Diabetes Essential hypertension Brother Diabetes Grandfather No problems noted. Grandfather Heart disease Grandmother No problems noted. Grandmother Heart disease FAMILY HISTORY Hyperlipidemia Son No problems noted. Daughter No problems noted. Social History Smoking/Tobacco Use Status: Never Alcohol Intake: current Alcohol Intake frequency: a few times a month Drug use: Never Do you feel safe at home: Yes Do you feel safe in your relationship?: Yes
--- NOTE | 2019-02-08 10:23 | PDOC.CMIN ---
- If Service Date Differs Date of service: 02/08/19 Time of Service: 10:23 Care Management Initial Assess REASON FOR HOSPITALIZATION:: Mucositis, N/V due to chemotherapy, and dehydration. PAST MEDICAL HISTORY/PAST SURGICAL HISTORY:: Medical History: Hyperlipidemia (Acute) and Squamous cell carcinoma of head and neck (Acute). Surgical History: Knee surgery - 02/2011 right and Nasal septoplasty. PREVIOUS FUNCTIONAL STATUS/SOCIAL/FAMILY SUPPORTS:: Delvin lives in [place] with his , Shena. Delvin was discharged prior to CM assessment. Information is gathered from patient chart. CURRENT FUNCTIONAL STATUS:: CM unable to meet with Delvin as he was discharged prior to CM assessment so he could receive his daily radiation treatment at [facility]. ADVANCE DIRECTIVES:: None on file. Has patient been provided with information about the portal?: No CODE STATUS:: Full Code INSURANCE COVERAGE / FINANCIAL ISSUES:: [employer] CURRENT HOME/COMMUNITY SERVICES/EQUIPMENT:: [facility] oncology. PRIMARY CARE PHYSICIAN:: Gregg Garcia MD ([facility]) POTENTIAL DISCHARGE NEEDS:: Follow-up appointment with [facility] oncology and PCP. PATIENT/FAMILY EDUCATION NEEDS:: Discharge instructions, limitations, and follow-up plan of care, including Ask Me Three and self-management. ANTICIPATED BARRIERS TO DISCHARGE:: None. TRANSPORTATION:: Transportation is provided by family member via private vehicle. PLAN:: Delvin will be discharged home when medically cleared by provider. Anticipate no new services needed at time of discharge. He will follow-up with [facility] oncology and his PCP as directed. Family member will transport Delvin home via private vehicle when ready.
[2019-02-08 11:30] VITALS: BP 127/76; PULSE 58; RESP 16; TEMP 37.3; O2SAT 99
== END 2019-02-08 11:34 | disposition home or self-care (01) ==
LOC: ER 15:13 → MS 02-08 10:58
PROVIDERS: Admitting Provider Internal Medicine; Emergency Provider Physician Assistant; PCP Family Medicine; Visit Provider Internal Medicine
DX: R50.2 Drug induced fever (principal); T45.1X5A Adverse effect of antineoplastic and immunosuppressive drugs, initial encounter; C76.0 Malignant neoplasm of head, face and neck; C77.0 Secondary and unspecified malignant neoplasm of lymph nodes of head, face and neck; N17.0 Acute kidney failure with tubular necrosis; E86.0 Dehydration; E78.5 Hyperlipidemia, unspecified
CPT/HCPCS: 36415; 80048; 80053; 87040; 87449; 87880; 96361; 96374; 96375; 99219; 99239; 99285; 70490; 71046; 81003; 83605; 83735; 85025; 87081; 87086; 99217; G0378; J2405; J3490

== ENCOUNTER 2019-02-14 12:34 | Outpatient (CLI) | payer OTHER, SELFPAY ==
[2019-02-14 12:59] LABS: Abs Immature Grans 0.02 k/cumm (0.0-0.09); Absolute Basophil Count 0.01 k/cumm (0.0-0.2); Absolute Eosinophil Count 0.02 k/cumm (0.0-0.7); Absolute Lymphocyte Count 0.53 k/cumm (1.2-3.4); Absolute Monocyte Count 0.41 k/cumm (0.11-0.7); Basophils % 0.2; Eosinophils % 0.4; HCT 35.1 % (40.0-50.0); Immature Grans % 0.4; Lymphocytes % 11.3; Mean Corp. HGB Concentration 34.2 g/dL (32.0-36.0); Mean Corpuscular Hemoglobin 31.1 pg (27.0-33.0); Mean Corpuscular Volume 90.9 fL (80-95); Mean Platelet Volume 7.8 fL (8.0-11.0); Monocytes % 8.7; Platelet Count 137 x1000/uL (130-400); RBC 3.86 m/cumm (4.50-6.00); White Blood Cell Count 4.69 k/cumm (4.4-10.8)
[2019-02-14 13:17] LABS: Anion Gap 6.8 mmol/L (3-11); BUN 14 mg/dL (7-18); CO2 30.2 mmol/L (21.0-32.0); CREATININE 1.07 mg/dL (0.70-1.30); Calcium 9.3 mg/dL (8.5-10.1); Chloride 102 mmol/L (98-107); Glucose 127 mg/dL (74-106); Magnesium 2.1 mg/dL (1.8-2.4); Potassium 4.1 mmol/L (3.5-5.1); Sodium 139 mmol/L (136-145)
== END 2019-02-14 12:54 ==
PROVIDERS: PCP Family Medicine; Visit Provider Internal Medicine Hematology & Oncology
DX: C09.9 Malignant neoplasm of tonsil, unspecified (principal)
CPT/HCPCS: 36415; 80048; 83735; 85025

== ENCOUNTER 2019-02-21 12:27 | Outpatient (CLI) | payer OTHER, SELFPAY ==
[2019-02-21 12:57] LABS: Absolute Eosinophil Count 0.08 k/cumm (0.0-0.7); Absolute Lymphocyte Count 0.48 k/cumm (1.2-3.4); Absolute Monocyte Count 0.48 k/cumm (0.11-0.7); Absolute Neutrophil Count 1.29 k/cumm (1.2-6.7); Eosinophils % 3.4; HCT 34.1 % (40.0-50.0); HGB 11.5 g/dL (13.5-17.5); Lymphocytes % 20.6; Mean Corp. HGB Concentration 33.7 g/dL (32.0-36.0); Mean Corpuscular Hemoglobin 31.4 pg (27.0-33.0); Mean Corpuscular Volume 93.2 fL (80-95); Mean Platelet Volume 7.6 fL (8.0-11.0); Monocytes % 20.6; Neutrophils % 55.4; Platelet Count 144 x1000/uL (130-400); RBC 3.66 m/cumm (4.50-6.00); RBC Distribution Width 12.9 % (11.8-14.1); White Blood Cell Count 2.33 k/cumm (4.4-10.8)
[2019-02-21 13:57] LABS: ALT 35 U/L (16-63); AST 15 U/L (15-37); Albumin 3.5 g/dL (3.4-5.0); Alkaline Phosphatase 58 U/L (46-116); Anion Gap 7.7 mmol/L (3-11); BUN 18 mg/dL (7-18); Bilirubin, Total 0.5 mg/dL (0.2-1.0); CO2 28.3 mmol/L (21.0-32.0); CREATININE 1.15 mg/dL (0.70-1.30); Chloride 105 mmol/L (98-107); Glucose 100 mg/dL (74-106); Magnesium 2.2 mg/dL (1.8-2.4); Potassium 4.6 mmol/L (3.5-5.1); Sodium 141 mmol/L (136-145); Total Protein 6.6 g/dL (6.4-8.2)
== END 2019-02-21 12:47 ==
PROVIDERS: PCP Family Medicine; Visit Provider Internal Medicine Hematology & Oncology
DX: C09.9 Malignant neoplasm of tonsil, unspecified (principal)
CPT/HCPCS: 36415; 80053; 83735; 85025

== ENCOUNTER 2019-02-28 14:16 | Outpatient (CLI) | payer OTHER, SELFPAY ==
[2019-02-28 14:39] LABS: Absolute Eosinophil Count 0.09 k/cumm (0.0-0.7); Absolute Lymphocyte Count 0.36 k/cumm (1.2-3.4); Absolute Monocyte Count 0.21 k/cumm (0.11-0.7); Absolute Neutrophil Count 2.08 k/cumm (1.2-6.7); Eosinophils % 3.3; HCT 32.2 % (40.0-50.0); Lymphocytes % 13.1; Mean Corp. HGB Concentration 34.2 g/dL (32.0-36.0); Mean Corpuscular Hemoglobin 31.8 pg (27.0-33.0); Mean Corpuscular Volume 93.1 fL (80-95); Mean Platelet Volume 7.8 fL (8.0-11.0); Monocytes % 7.7; Neutrophils % 75.9; Platelet Count 126 x1000/uL (130-400); RBC 3.46 m/cumm (4.50-6.00); RBC Distribution Width 13.1 % (11.8-14.1); White Blood Cell Count 2.74 k/cumm (4.4-10.8)
[2019-02-28 15:55] LABS: Anion Gap 7.9 mmol/L (3-11); BUN 19 mg/dL (7-18); CO2 29.1 mmol/L (21.0-32.0); CREATININE 0.87 mg/dL (0.70-1.30); Calcium 8.5 mg/dL (8.5-10.1); Chloride 107 mmol/L (98-107); Glucose 87 mg/dL (74-106); Magnesium 1.9 mg/dL (1.8-2.4); Sodium 144 mmol/L (136-145)
== END 2019-02-28 14:36 ==
PROVIDERS: PCP Family Medicine; Visit Provider Internal Medicine Hematology & Oncology
DX: C09.9 Malignant neoplasm of tonsil, unspecified (principal)
CPT/HCPCS: 36415; 80048; 83735; 85025

== ENCOUNTER 2019-03-07 12:50 | Outpatient (CLI) | payer OTHER, SELFPAY ==
[2019-03-07 13:26] LABS: Abs Immature Grans 0.01 k/cumm (0.0-0.09); Absolute Lymphocyte Count 0.18 k/cumm (1.2-3.4); Absolute Monocyte Count 0.18 k/cumm (0.11-0.7); Absolute Neutrophil Count 2.04 k/cumm (1.2-6.7); HGB 10.9 g/dL (13.5-17.5); Immature Grans % 0.4 %; Lymphocytes % 7.5; Mean Corp. HGB Concentration 34.1 g/dL (32.0-36.0); Mean Corpuscular Hemoglobin 31.8 pg (27.0-33.0); Mean Corpuscular Volume 93.3 fL (80-95); Mean Platelet Volume 8.3 fL (8.0-11.0); Monocytes % 7.5; Neutrophils % 84.6; Platelet Count 189 x1000/uL (130-400); RBC 3.43 m/cumm (4.50-6.00); RBC Distribution Width 13.3 % (11.8-14.1); White Blood Cell Count 2.41 k/cumm (4.4-10.8)
[2019-03-07 14:22] LABS: Anion Gap 8.6 mmol/L (3-11); BUN 19 mg/dL (7-18); CO2 29.4 mmol/L (21.0-32.0); Chloride 103 mmol/L (98-107); Glucose 151 mg/dL (74-106); Magnesium 1.8 mg/dL (1.8-2.4); Potassium 4.3 mmol/L (3.5-5.1); Sodium 141 mmol/L (136-145)
== END 2019-03-07 13:10 ==
PROVIDERS: PCP Family Medicine; Visit Provider Internal Medicine Hematology & Oncology
DX: C09.9 Malignant neoplasm of tonsil, unspecified (principal)
CPT/HCPCS: 36415; 80048; 83735; 85025

== ENCOUNTER 2019-03-22 10:57 | Outpatient (CLI) | payer OTHER, SELFPAY ==
[2019-03-22 11:51] LABS: Abs Immature Grans 0.03 k/cumm (0.0-0.09); Absolute Basophil Count 0.01 k/cumm (0.0-0.2); Absolute Eosinophil Count 0.01 k/cumm (0.0-0.7); Absolute Lymphocyte Count 0.95 k/cumm (1.2-3.4); Absolute Monocyte Count 0.68 k/cumm (0.11-0.7); Basophils % 0.2; Eosinophils % 0.2; HCT 29.4 % (40.0-50.0); HGB 9.6 g/dL (13.5-17.5); Immature Grans % 0.7 %; Lymphocytes % 20.7; Mean Corp. HGB Concentration 32.7 g/dL (32.0-36.0); Mean Corpuscular Hemoglobin 31.3 pg (27.0-33.0); Mean Corpuscular Volume 95.8 fL (80-95); Mean Platelet Volume 7.6 fL (8.0-11.0); Monocytes % 14.8; Neutrophils % 63.4; Platelet Count 191 x1000/uL (130-400); RBC 3.07 m/cumm (4.50-6.00); White Blood Cell Count 4.58 k/cumm (4.4-10.8)
[2019-03-22 11:55] LABS: Anion Gap 5.1 mmol/L (3-11); BUN 16 mg/dL (7-18); CO2 29.9 mmol/L (21.0-32.0); CREATININE 0.92 mg/dL (0.70-1.30); Calcium 8.7 mg/dL (8.5-10.1); Chloride 106 mmol/L (98-107); Glucose 93 mg/dL (74-106); Magnesium 1.7 mg/dL (1.8-2.4); Potassium 4.4 mmol/L (3.5-5.1); Sodium 141 mmol/L (136-145)
== END 2019-03-22 11:17 ==
PROVIDERS: PCP Family Medicine; Visit Provider Internal Medicine Hematology & Oncology
DX: C09.9 Malignant neoplasm of tonsil, unspecified (principal)
CPT/HCPCS: 36415; 80048; 83735; 85025

== ENCOUNTER 2019-03-29 11:15 | Outpatient (CLI) | payer OTHER, SELFPAY ==
[2019-03-29 11:47] LABS: Abs Immature Grans 0.03 k/cumm (0.0-0.09); Absolute Basophil Count 0.02 k/cumm (0.0-0.2); Absolute Eosinophil Count 0.06 k/cumm (0.0-0.7); Absolute Lymphocyte Count 1.26 k/cumm (1.2-3.4); Absolute Monocyte Count 0.48 k/cumm (0.11-0.7); Absolute Neutrophil Count 3.49 k/cumm (1.2-6.7); Basophils % 0.4; Eosinophils % 1.1; HGB 10.5 g/dL (13.5-17.5); Immature Grans % 0.6 %; Lymphocytes % 23.6; Mean Corp. HGB Concentration 32.8 g/dL (32.0-36.0); Mean Corpuscular Hemoglobin 31.2 pg (27.0-33.0); Mean Platelet Volume 7.8 fL (8.0-11.0); Neutrophils % 65.3; Platelet Count 121 x1000/uL (130-400); RBC 3.37 m/cumm (4.50-6.00); RBC Distribution Width 13.9 % (11.8-14.1); White Blood Cell Count 5.34 k/cumm (4.4-10.8)
[2019-03-29 12:05] LABS: BUN 13 mg/dL (7-18); CREATININE 0.76 mg/dL (0.70-1.30); Calcium 9.1 mg/dL (8.5-10.1); Chloride 103 mmol/L (98-107); Glucose 104 mg/dL (74-106); Potassium 4.4 mmol/L (3.5-5.1); Sodium 140 mmol/L (136-145)
== END 2019-03-29 11:35 ==
PROVIDERS: PCP Family Medicine; Visit Provider Internal Medicine Hematology & Oncology
DX: C09.9 Malignant neoplasm of tonsil, unspecified (principal)
CPT/HCPCS: 36415; 80048; 83735; 85025

== ENCOUNTER 2019-04-19 11:41 | Outpatient (CLI) | payer OTHER, SELFPAY ==
[2019-04-19 11:58] LABS: Absolute Basophil Count 0.01 k/cumm (0.0-0.2); Absolute Eosinophil Count 0.17 k/cumm (0.0-0.7); Absolute Lymphocyte Count 0.93 k/cumm (1.2-3.4); Absolute Monocyte Count 0.39 k/cumm (0.11-0.7); Absolute Neutrophil Count 2.66 k/cumm (1.2-6.7); Basophils % 0.2; Eosinophils % 4.1; HCT 32.2 % (40.0-50.0); HGB 10.8 g/dL (13.5-17.5); Lymphocytes % 22.4; Mean Corp. HGB Concentration 33.5 g/dL (32.0-36.0); Mean Corpuscular Hemoglobin 32.7 pg (27.0-33.0); Mean Corpuscular Volume 97.6 fL (80-95); Mean Platelet Volume 7.6 fL (8.0-11.0); Monocytes % 9.4; Neutrophils % 63.9; Platelet Count 160 x1000/uL (130-400); RBC Distribution Width 14.5 % (11.8-14.1); White Blood Cell Count 4.16 k/cumm (4.4-10.8)
[2019-04-19 12:10] LABS: Anion Gap 5.6 mmol/L (3-11); BUN 16 mg/dL (7-18); CO2 29.4 mmol/L (21.0-32.0); CREATININE 0.78 mg/dL (0.70-1.30); Calcium 8.5 mg/dL (8.5-10.1); Chloride 105 mmol/L (98-107); Glucose 104 mg/dL (74-106); Magnesium 1.9 mg/dL (1.8-2.4); Potassium 4.4 mmol/L (3.5-5.1); Sodium 140 mmol/L (136-145)
== END 2019-04-19 12:01 ==
PROVIDERS: PCP Family Medicine; Visit Provider Internal Medicine Hematology & Oncology
DX: C09.9 Malignant neoplasm of tonsil, unspecified (principal)
CPT/HCPCS: 36415; 80048; 83735; 85025

== ENCOUNTER 2019-05-13 14:24 | Outpatient (CLI) | payer OTHER, SELFPAY ==
[2019-05-13 14:49] LABS: Abs Immature Grans 0.03 k/cumm (0.0-0.09); Absolute Basophil Count 0.01 k/cumm (0.0-0.2); Absolute Eosinophil Count 0.12 k/cumm (0.0-0.7); Absolute Lymphocyte Count 1.19 k/cumm (1.2-3.4); Absolute Monocyte Count 0.64 k/cumm (0.11-0.7); Absolute Neutrophil Count 3.97 k/cumm (1.2-6.7); Basophils % 0.2; HCT 37.1 % (40.0-50.0); HGB 12.5 g/dL (13.5-17.5); Immature Grans % 0.5 %; Mean Corp. HGB Concentration 33.7 g/dL (32.0-36.0); Mean Corpuscular Hemoglobin 32.7 pg (27.0-33.0); Mean Corpuscular Volume 97.1 fL (80-95); Mean Platelet Volume 7.7 fL (8.0-11.0); Monocytes % 10.7; Neutrophils % 66.6; Platelet Count 221 x1000/uL (130-400); RBC 3.82 m/cumm (4.50-6.00); RBC Distribution Width 12.8 % (11.8-14.1); White Blood Cell Count 5.96 k/cumm (4.4-10.8)
[2019-05-13 15:50] LABS: ALT 23 U/L (16-63); AST 10 U/L (15-37); Alkaline Phosphatase 50 U/L (46-116); Anion Gap 8.8 mmol/L (3-11); BUN 19 mg/dL (7-18); Bilirubin, Total 0.3 mg/dL (0.2-1.0); CO2 30.2 mmol/L (21.0-32.0); CREATININE 0.79 mg/dL (0.70-1.30); Chloride 102 mmol/L (98-107); Glucose 118 mg/dL (74-106); Magnesium 1.9 mg/dL (1.8-2.4); Potassium 3.8 mmol/L (3.5-5.1); Sodium 141 mmol/L (136-145); Total Protein 6.8 g/dL (6.4-8.2)
== END 2019-05-13 14:44 ==
PROVIDERS: PCP Family Medicine; Visit Provider Internal Medicine Hematology & Oncology
DX: C09.9 Malignant neoplasm of tonsil, unspecified (principal); Z79.899 Other long term (current) drug therapy
CPT/HCPCS: 36415; 80053; 82533; 83735; 84443; 85025

== ENCOUNTER 2019-07-31 10:34 | Emergency (ER) | payer OTHER, SELFPAY ==
[2019-07-31] VITALS (8 sets, daily range): BP systolic 106–119; BP diastolic 69–74; PULSE 56–81; RESP 13–20; TEMP 36.7–37.1; O2SAT 95–97
--- NOTE | 2019-07-31 10:50 | ED.GENADUL_ITS ---
Discharge Plan Disposition Patient Disposition: HOME Condition: Improving Discharge Details Chief Complaint: CVA/TIA Clinical Impression: Mass of tongue, Mass of left side of neck, Nasopharyngeal carcinoma Primary Care Provider: Gregg Garcia ED Provider: Linda Bustamante Home Meds and New Rx's Prescriptions: New methylprednisolone [Medrol (Riley)] 4 mg tablets,dose pack See Rx Instructions .ROUTE .COMPLEX Qty: 21 RF: 0 Continued multivitamin with minerals [One Daily Complete] 1 EACH tablet 1 ea PO DAILY RF: 0 atorvastatin 40 mg tablet 40 mg PO DAILY Qty: 90 RF: 3 Discharge Instructions Instructions: Squamous Cell Carcinoma (DC), Neck Pain (ED) Additional Instructions: Take the Medrol Dosepak until finished. Drink plenty of fluids and get plenty of rest. Alternate tylenol and motrin as needed and directed for pain. Call [facility] oncology today or tomorrow morning to schedule follow-up appointment for reevaluation this week. Return immediately to the emergency department if he develop any worsening or concerning symptoms such as difficulty breathing, difficulty swallowing, worsening headache or any other concerns. 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 Sent by PCP for further evaluation including MRI/MRA head and neck to rule out mets versus CVA versus new mass. Patient appears in no acute distress. Vitals within normal limits. He does have noted cranial 12 weakness with tongue deviation to left upon protrusion out of mouth. Airway intact. No other obvious focal deficits. No cerebellar signs. No meningeal signs. Appears nontoxic. Pt referred for stat CT head which was negative. MRI/MRA head and neck ordered. We will also obtain screening labs. EKG notes a rate of 57, sinus with no acute ST ischemic changes. 1300 --patient reassessed -states he feels much better after IV Tylenol. 1530 --labs and imaging reviewed. Normal lab work. MRI brain/MRA brain and neck negative. MRI neck notes enlargement, edema and mild enhancement of the posterior left side of tongue as well as an adjacent soft tissues of neck of previously noted mass which could represent residual or recurrence of invasive tumor posttreatment changes. Case discussed with [facility] oncology -she did not review images as they are not yet available, and she does not specialize in head and neck cancers, but as patient is hemodynamically stable, airway intact, able to eat and swallow, no indication for emergent transfer at this time. Would recommend discharge, Medrol Dosepak and will follow-up with patient in the next couple days for reevaluation. Patient is agreeable with plan. Medical Records Medical records reviewed: Yes I reviewed the patient's medical records. Imaging Data Radiologic Study: Radiologist's impression: CT HEAD WO CLINICAL HISTORY: headache, r/o acute cva. TECHNIQUE: Imaging Protocol: Axial computed tomography images with coronal and sagittal reformatted images were created and reviewed COMPARISON: No exams were available for comparison FINDINGS: Ventricles and Extra axial spaces: Normal in size and morphology for the patient's age. Hemorrhage: None. Cerebral parenchyma: Normal. Midline shift: None. Brainstem/Cerebellum: Prominent cisterna magna.. Calvarium: Normal. Visualized Paranasal sinuses/Mastoids: Clear. Soft Tissues: Unremarkable. IMPRESSION: No acute intracranial process. MRI:MR angio brain wo CLINICAL HISTORY: L sided headache/Tongue deviated to L. TECHNIQUE: A 3D wxjt-ed-hwdade study was performed. COMPARISON: None. FINDINGS: Carotid Arteries: Petrous: Normal. Cavernous: Normal. Cerebral: Normal. Middle Cerebral Arteries: Right: No aneurysm or significant stenosis. Left: No aneurysm or significant stenosis. Anterior Cerebral Arteries: Right: No aneurysm or significant stenosis. Left: No aneurysm or significant stenosis. Vertebral Arteries: Right: No aneurysm or significant stenosis. Left: No aneurysm or significant stenosis. . Basilar Artery: No aneurysm or significant stenosis. Small Vessels: No evidence of beading. IMPRESSION: Normal MRA examination of the [place] of [place]. MR BRAIN ORBIT FACE NECK WO/W CLINICAL HISTORY: L sided headache/Tongue deviated to L TECHNIQUE: Multiplanar multisequence MRI of the neck was performed. Additional T1 fat-suppressed axial, coronal and sagittal sequences were performed before and after 17 milliliters of IV Dotarem. COMPARISON: CT CT neck w from 09/21/[address] NECK WO from 02/07/2019 FINDINGS: Parotids/submandibular/thyroid gland: Normal. Lymphadenopathy: There is scattered lymph nodes seen along the level one to level three all measuring less than 8 mm in short axis diameter which are physiologic in nature. Carotids/Jugular: Within normal limits. Soft tissues: There is enlargement of the posterior left side of the tongue where there is mild edema and mild enhancement. No discrete mass is visible. Findings could represent an infiltrative mass. There is also edema and enhancement within the adjacent aspect of the left side of the neck related to the previously noted mass.. The epiglottis and vocal cords are within normal limits. Images through both lung apices are unremarkable. The visualized cord portions of the cervical and upper thoracic spinal cord appear normal. The marrow signal is normal. IMPRESSION: Enlargement, edema and mild enhancement of the posterior left side of the tongue. There is also edema and enhancement in the adjacent soft tissues of the neck in the region of a previously noted mass. The findings could represent residual or recurrence it invasive tumor post treatment changes. MR ANGIO NECK W CLINICAL HISTORY: L side headache/tongue deviated to L. TECHNIQUE: 2D and 3D trff-qn-lrdlry studies were performed. COMPARISON: No exams were available for comparison FINDINGS: Common Carotid: Right: Normal. Left: Normal. External Carotid: Right: Normal. Left: Normal. Internal Carotid: Right: Tortuosity of the mid right internal carotid artery, otherwise normal. Left: Normal. Vertebral Artery: Right: Normal. Left: Normal. The visualized paraspinal soft tissues are unremarkable. IMPRESSION: Normal MRA of the carotids and vertebral arteries. No evidence of significant stenosis, plaque or dissection.. Lab Data Lab results reviewed: Yes I reviewed the patient's lab results. Labs: Laboratory Tests Range/Units 07/31/19 07/31/19 11:05 11:05 WBC (4.4-10.8) k/cumm 5.71 RBC (4.50-6.00) m/cumm 4.51 Hgb (13.5-17.5) g/dL 14.4 Hct (40.0-50.0) % 41.0 MCV (80-95) fL 90.9 MCH (27.0-33.0) pg 31.9 MCHC (32.0-36.0) g/dL 35.1 RDW (11.8-14.1) % 12.0 Plt Count (130-400) x1000/uL 193 MPV (8.0-11.0) fL 8.5 Immature Gran % % 0.2 Neutrophils % 63.1 Lymphocytes % 21.7 Monocytes % 10.0 Eosinophils % 4.6 Basophils % 0.4 Absolute Neutrophils (1.2-6.7) k/cumm 3.61 Absolute Lymphocytes (1.2-3.4) k/cumm 1.24 Absolute Monocytes (0.11-0.7) k/cumm 0.57 Absolute Eosinophils (0.0-0.7) k/cumm 0.26 Absolute Basophils (0.0-0.2) k/cumm 0.02 Sodium (136-145) mmol/L 138 Potassium (3.5-5.1) mmol/L 4.3 Chloride (98-107) mmol/L 103 Carbon Dioxide (21.0-32.0) mmol/L 28.0 Anion Gap (3-11) mmol/L 7.0 BUN (7-18) mg/dL 23 H Creatinine (0.70-1.30) mg/dL 1.22 Estimated GFR/1.73 m2 (mL/min/1.73m2) >= 60.00 Glucose (74-106) mg/dL 105 Calcium (8.5-10.1) mg/dL 9.4 Total Bilirubin (0.2-1.0) mg/dL 0.6 AST (15-37) U/L 27 ALT (16-63) U/L 50 Alkaline Phosphatase (46-116) U/L 47 Total Protein (6.4-8.2) g/dL 7.4 Albumin (3.4-5.0) g/dL 4.0 ECG Data Attestation: I personally reviewed and interpreted this ECG (s) as follows: Interpretation: rate of 57, sinus, no acute st elevation or depression, MA 132, QTc 403, QRS 96. HPI General Mode of arrival: ambulatory . Date/Time Provider Initiated Documentation: 07/31/19 10:47 . Limitations to Documentation: no limitations . Information obtained by: patient . 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 He states his headache is located behind his left eye and left forehead and temporal region. He states he has periods without any pain and then periods that are severe without known aggravating or alleviating factors. He has chronic left-sided neck pain since his radiation in March. He denies any numbness or weakness in his arms or legs. He denies any blurry vision, difficulty swallowing, sore throat, runny nose, cough, chest pain, shortness of breath, abdominal pain, vomiting, diarrhea, urinary symptoms, recent travel, recent exposure to coronavirus or recent coronavirus testing. His PCP Dr. Diego called the ED stating that he was sending him here for further evaluation of the symptoms with an MRI/MRA of the head and neck to rule out possible mets versus mass versus CVA. Related Data Home Medications Medication Instructions Recorded Confirmed multivitamin with minerals [One 1 ea PO DAILY 10/01/12 07/31/19 Daily Complete] atorvastatin 40 mg tablet 40 mg PO DAILY #90 tab-cap 04/29/19 07/31/19 methylprednisolone [Medrol (Riley)] See Rx Instructions .ROUTE 07/31/19 .COMPLEX #21 dose pk Previous Rx's Medication Instructions Recorded atorvastatin 40 mg tablet 40 mg PO DAILY #90 tab-cap 04/29/19 methylprednisolone [Medrol (Riley)] See Rx Instructions .ROUTE 07/31/19 .COMPLEX #21 dose pk Allergies Allergy/AdvReac Type Severity Reaction Status Date / Time MAGNESIUM SILICAT Allergy Intermediate ITCHING Uncoded 07/31/19 10:45 General Stated Complaint: CVA/TIA MARYBETH: 3 Review of Systems All systems reviewed & are unremarkable except as noted in HPI and below Constitutional Constitutional: Reports as per HPI, Denies chills, Denies fever(s) and Reports headache(s) Eyes Eyes: Denies blurry vision ENT Ears, Nose, Mouth, and Throat: Denies dizziness, Reports headache(s), Denies sore throat and Denies throat swelling Cardiovascular Cardiovascular: Denies chest pain and Denies dyspnea Respiratory Respiratory: Denies cough and Denies dyspnea Gastrointestinal Gastrointestinal: Denies abdominal pain, Denies diarrhea and Denies vomiting Genitourinary Genitourinary: Denies hematuria and Denies dysuria Musculoskeletal Musculoskeletal: Denies back pain and Denies numbness Integumentary/Breasts Skin/Breast: Denies lesions and Denies rash Neurologic Neurologic: Denies dizziness, Reports headache(s), Reports localized weakness and Denies numbness Allergic/Immunologic Allergic/Immunologic: Denies throat swelling [facility] Medical History (Updated 07/31/19 @ 16:27 by Linda Bustamante DO) Hyperlipidemia (Acute) Squamous cell carcinoma of head and neck (Acute) treated with radiation and chemo finished Mar 2019 Surgical History KNEE SURGERY 02/2011 RIGHT Nasal septoplasty Social History Smoking/Tobacco Use Status: Never Alcohol Intake: current Alcohol Intake frequency: a few times a month Drug use: Never Substance use type: does not use Do you feel safe at home: Yes Do you feel safe in your relationship?: Yes Exam Const General: cooperative and no acute distress Orientation: alert, awake and oriented x3 HENMT Head: normal to inspection Ears: hearing grossly normal bilaterally, external ears normal and TM's normal bilaterally General nose exam: external nose normal Face and sinus: normal facial exam Mouth: oral mucosae normal Teeth and gingiva: dentition normal Throat: posterior oropharynx normal Eyes General: appearance normal, both eyes and all related structures Eyelids: eyelids normal Pupils: PERRL EOM: EOM intact bilaterally Neck Neck: normal visual inspection Lymphatic: no lymphadenopathy noted Chest Chest: normal inspection of the chest Resp Effort & Inspection: normal respiratory effort and able to speak in complete sentences Auscultation: clear to auscultation bilaterally Cardio Rate: regular rate Rhythm: regular rhythm GI Inspection: normal to inspection Palpation: soft, not firm, no guarding, no hepatosplenomegaly, no masses and nontender Auscultation: normal bowel sounds Back/Spine/Pelvis Back: no CVA tenderness Skin General skin exam: no rashes or lesions noted Neuro General: patient alert, patient awake, gait normal, moves all extremities and no meningeal signs Cranial Nerves: individual cranial nerve findings XII: abnormal (Inability to push tongue into L cheek/tongue deviates to L when protruded) Cognition: normal cognition Speech: speech normal Gait: normal gait Motor: muscle tone normal throughout, strength 5/5 throughout and no pronator drift Sensory Exam: no sensory deficits noted Extrem General: normal to inspection, full ROM and capillary refill normal Psych Appearance: grossly normal Mental Status: mental status grossly normal Speech and Movement: speech and movement normal Affect: normal affect Thought Process: normal Course Vital Signs Vital signs: Vital Signs Temperature 98.8 F 07/31/19 10:38 Pulse 81 07/31/19 10:38 Respiratory Rate 07/31/19 10:38 Blood Pressure 109/69 07/31/19 10:38 Pulse Oximetry 96 07/31/19 10:38 Temperature 98.8 F 07/31/19 10:38 Temperature Source Skin 07/31/19 10:38 Pulse 81 07/31/19 10:38 Respiratory Rate 07/31/19 10:38 Blood Pressure 109/69 07/31/19 10:38 Blood Pressure Position Sitting 07/31/19 10:38 Pulse Oximetry 96 07/31/19 10:38 Oxygen Delivery Method Room Air 07/31/19 10:38 Oxygen Flow Rate 0 07/31/19 10:38 Pain Level 0 07/31/19 10:38
--- NOTE | 2019-07-31 11:16 | DI.CT_ITS ---
EXAM: CT HEAD WO CLINICAL HISTORY: headache, r/o acute cva. TECHNIQUE: Imaging Protocol: Axial computed tomography images with coronal and sagittal reformatted images were created and reviewed COMPARISON: No exams were available for comparison FINDINGS: Ventricles and Extra axial spaces: Normal in size and morphology for the patient's age. Hemorrhage: None. Cerebral parenchyma: Normal. Midline shift: None. Brainstem/Cerebellum: Prominent cisterna magna.. Calvarium: Normal. Visualized Paranasal sinuses/Mastoids: Clear. Soft Tissues: Unremarkable. IMPRESSION: No acute intracranial process. RADIATION DOSE DELIVERED: 790.18mGy.cm Total DLP DATA REPOSITORY: All CT scans at this facility are submitted to the National Radiology Data Registry (NRDR) Dose Index Registry (DIR) with the [employer] (ACR). RADIATION OPTIMIZATION: All CT scans at this facility use at least one of these dose optimization te chniques: automated exposure control; mA and/or kV adjustment per patient size (includes targeted exa ms where dose is matched to clinical indication); or iterative reconstruction.
[2019-07-31 11:17] LABS: Abs Immature Grans 0.01 k/cumm (0.0-0.09); Absolute Basophil Count 0.02 k/cumm (0.0-0.2); Absolute Eosinophil Count 0.26 k/cumm (0.0-0.7); Absolute Lymphocyte Count 1.24 k/cumm (1.2-3.4); Absolute Monocyte Count 0.57 k/cumm (0.11-0.7); Absolute Neutrophil Count 3.61 k/cumm (1.2-6.7); Basophils % 0.4; Eosinophils % 4.6; HGB 14.4 g/dL (13.5-17.5); Immature Grans % 0.2 %; Lymphocytes % 21.7; Mean Corp. HGB Concentration 35.1 g/dL (32.0-36.0); Mean Corpuscular Hemoglobin 31.9 pg (27.0-33.0); Mean Corpuscular Volume 90.9 fL (80-95); Mean Platelet Volume 8.5 fL (8.0-11.0); Neutrophils % 63.1; Platelet Count 193 x1000/uL (130-400); RBC 4.51 m/cumm (4.50-6.00); White Blood Cell Count 5.71 k/cumm (4.4-10.8)
--- NOTE | 2019-07-31 11:21 | DI.MRI_ITS ---
CLINICAL HISTORY: L sided headache/Tongue deviated to L. TECHNIQUE: A 3D zqpo-da-tlhgux study was performed. COMPARISON: None. FINDINGS: Carotid Arteries: Petrous: Normal. Cavernous: Normal. Cerebral: Normal. Middle Cerebral Arteries: Right: No aneurysm or significant stenosis. Left: No aneurysm or significant stenosis. Anterior Cerebral Arteries: Right: No aneurysm or significant stenosis. Left: No aneurysm or significant stenosis. Vertebral Arteries: Right: No aneurysm or significant stenosis. Left: No aneurysm or significant stenosis. . Basilar Artery: No aneurysm or significant stenosis. Small Vessels: No evidence of beading. IMPRESSION: Normal MRA examination of the [place] of [place]. DATA REPOSITORY:
[2019-07-31 11:29] LABS: ALT 50 U/L (16-63); AST 27 U/L (15-37); Alkaline Phosphatase 47 U/L (46-116); BUN 23 mg/dL (7-18); Bilirubin, Total 0.6 mg/dL (0.2-1.0); CREATININE 1.22 mg/dL (0.70-1.30); Calcium 9.4 mg/dL (8.5-10.1); Chloride 103 mmol/L (98-107); Glucose 105 mg/dL (74-106); Potassium 4.3 mmol/L (3.5-5.1); Sodium 138 mmol/L (136-145); Total Protein 7.4 g/dL (6.4-8.2)
[2019-07-31] MEDS: ACETAMINOPHEN 1,000 MG/100 ML BTL 400 MG IVPB (12:00)
[2019-07-31] MEDS: Gadoterate meglumine 20 ML VIAL 17 ML IVP (13:33)
--- NOTE | 2019-07-31 13:43 | DI.MRI_ITS ---
EXAM: MR ANGIO NECK W CLINICAL HISTORY: L side headache/tongue deviated to L. TECHNIQUE: 2D and 3D mano-qx-orcqwd studies were performed. COMPARISON: No exams were available for comparison FINDINGS: Common Carotid: Right: Normal. Left: Normal. External Carotid: Right: Normal. Left: Normal. Internal Carotid: Right: Tortuosity of the mid right internal carotid artery, otherwise normal. Left: Normal. Vertebral Artery: Right: Normal. Left: Normal. The visualized paraspinal soft tissues are unremarkable. IMPRESSION: Normal MRA of the carotids and vertebral arteries. No evidence of significant stenosis, plaque or dis section.. DATA REPOSITORY:
--- NOTE | 2019-07-31 14:00 | DI.MRI_ITS ---
EXAM: MR BRAIN ORBIT FACE NECK WO/W CLINICAL HISTORY: L sided headache/Tongue deviated to L TECHNIQUE: Multiplanar multisequence MRI of the neck was performed. Additional T1 fat-suppressed ax ial, coronal and sagittal sequences were performed before and after 17 milliliters of IV Dotarem. COMPARISON: CT CT neck w from 09/21/[address] NECK WO from 02/07/2019 FINDINGS: Parotids/submandibular/thyroid gland: Normal. Lymphadenopathy: There is scattered lymph nodes seen along the level one to level three all measurin g less than 8 mm in short axis diameter which are physiologic in nature. Carotids/Jugular: Within normal limits. Soft tissues: There is enlargement of the posterior left side of the tongue where there is mild edema and mild enhancement. No discrete mass is visible. Findings could represent an infiltrative mass. There is also edema and enhancement within the adjacent aspect of the left side of the neck related to the previously noted mass.. The epiglottis and vocal cords are within normal limits. Images throu gh both lung apices are unremarkable. The visualized cord portions of the cervical and upper thorac ic spinal cord appear normal. The marrow signal is normal. IMPRESSION: Enlargement, edema and mild enhancement of the posterior left side of the tongue. There is also kylah a and enhancement in the adjacent soft tissues of the neck in the region of a previously noted mass. The findings could represent residual or recurrence it invasive tumor post treatment changes.. DATA REPOSITORY:
--- NOTE | 2019-07-31 14:01 | DI.MRI_ITS ---
EXAM: MR BRAIN WO/W CLINICAL HISTORY: L sided headache/Tongue deviates to L. TECHNIQUE: Multiplanar multisequence MRI of the brain was performed. CONTRAST MATERIAL: IV Contrast: Of the 7 ML of Dotarem contrast administered. COMPARISON: MR MR ANGIO BRAIN WO from 07/31/2019 FINDINGS: VENTRICLES AND EXTRA AXIAL SPACES: Normal in size and morphology for the patient's age. HEMORRHAGE: None. CEREBRAL PARENCHYMA: No focus of restricted diffusion to suggest acute infarct. No space-occupying le rock identified. MIDLINE SHIFT: None. BRAINSTEM/CEREBELLUM: Normal. CALVARIUM: Normal. ENHANCEMENT: No suspicious enhancement identified. VISUALIZED PARANASAL SINUSES/MASTOIDS: Clear. OTHER FINDINGS: None. IMPRESSION: Unremarkable MRI of the brain. No evidence of infarct or metastatic disease. DATA REPOSITORY:
== END 2019-07-31 17:20 | disposition home or self-care (01) ==
PROVIDERS: Emergency Provider Physician Assistant; PCP Family Medicine
DX: K14.8 Other diseases of tongue (principal); R93.0 Abnormal findings on diagnostic imaging of skull and head, not elsewhere classified; R51 Headache; R47.81 Slurred speech; C11.9 Malignant neoplasm of nasopharynx, unspecified; Z92.21 Personal history of antineoplastic chemotherapy; Z92.3 Personal history of irradiation
CPT/HCPCS: 36415; 70544; 70553; 80053; 93005; 96365; 96366; 99285; 70450; 70543; 70548; 85025; 93010; J0131

== ENCOUNTER 2019-12-16 00:49 | Outpatient (CLI) | payer OTHER, SELFPAY ==
--- NOTE | 2019-12-16 | DI.CT_ITS ---
EXAM: CT NECK W CLINICAL HISTORY: TONSIL CA,C09.9/HEAD/NECK CA SURVEILLANCE. TECHNIQUE: Imaging Protocol: Axial computed tomography images with coronal and sagittal reformatted images were created and reviewed. CONTRAST MATERIAL: Intravenous: Omnipaque 350 Contrast volume:100 mL COMPARISON: CT CT NECK WO from 02/07/2019 MR MR BRAIN ORBIT FACE NECK WO/W from 07/31/2019 FINDINGS: Orbits and orbital soft tissues: Within normal limits. Visualized paranasal sinuses: Mild mucosal thickening in the maxillary sinuses. The remaining sinus es and mastoid air cells are clear. Nasopharynx: Within normal limits. Oropharynx: There is no change in size of the enlargement of the posterior aspect of the left side of the tongue since the MRI examination from 07/31/2019. No new or enhancing mass is identified. Hypopharynx: Within normal limits. Larynx: Within normal limits. Retropharyngeal space: Within normal limits. Parotids/submandibular: Within normal limits. Thyroid gland: Within normal limits. Lymphadenopathy: There is scattered lymph nodes seen along the level one to level three all measurin g less than 8 mm in short axis diameter which are physiologic in nature. Trachea: Within normal limits. Lung apices: Within normal limits. Bones: Within normal limits. Carotids/Jugular: Within normal limits. Soft tissues: Within normal limits. IMPRESSION: Unchanged enlargement of the left side of the tongue posteriorly. This is unchanged compared to the MRI examination from 07/31/2019. No new mass or cervical adenopathy is appreciated. RADIATION DOSE DELIVERED: 436.52mGy.cm Total DLP 436.52mGy.cm Total DLP DATA REPOSITORY: All CT scans at this facility are submitted to the National Radiology Data Registry (NRDR) Dose Index Registry (DIR) with the [employer] (ACR). RADIATION OPTIMIZATION: All CT scans at this facility use at least one of these dose optimization te chniques: automated exposure control; mA and/or kV adjustment per patient size (includes targeted exa ms where dose is matched to clinical indication); or iterative reconstruction.
[2019-12-16 14:16] LABS: Abs Immature Grans 0.02 10^3/uL (0.0-0.06); Absolute Basophil Count 0.02 10^3/uL (0.0-0.2); Absolute Eosinophil Count 0.23 10^3/uL (0.0-0.7); Absolute Lymphocyte Count 0.96 10^3/uL (1.2-3.4); Absolute Monocyte Count 0.43 10^3/uL (0.1-0.8); Absolute Neutrophil Count 2.58 10^3/uL (1.2-6.7); Basophils % 0.5; Eosinophils % 5.4; HCT 42.1 % (40.0-50.0); HGB 14.4 g/dL (13.5-17.5); Immature Grans % 0.5; Lymphocytes % 22.6; MCH 31.4 pg (27.0-33.0); MCHC 34.2 % (32.0-36.0); MCV 91.7 fL (80-95); MPV 8.4 fL (8.0-11.0); Monocytes % 10.1; Neutrophils % 60.9; Nucleated RBC 0 %; Platelet Count 153 10^3/uL (130-400); RBC 4.59 10^6/uL (4.36-5.78); RDW 11.9 % (11.8-14.1); RDW-SD 39.6 fL; WBC 4.24 10^3/uL (4.4-10.8)
[2019-12-16 14:29] LABS: ALT 33 U/L (16-63); AST 18 U/L (15-37); Albumin 3.8 g/dL (3.4-5.0); Alkaline Phosphatase 55 U/L (46-116); Anion Gap 3.9 mmol/L (3-11); BUN 14 mg/dL (7-18); Bilirubin, Total 0.6 mg/dL (0.2-1.0); CO2 33.1 mmol/L (21.0-32.0); Chloride 103 mmol/L (98-107); Glucose 84 mg/dL (74-106); Magnesium 2.1 mg/dL (1.8-2.4); Potassium 3.7 mmol/L (3.5-5.1); Sodium 140 mmol/L (136-145)
[2019-12-16] MEDS: Omnipaque 350 MG/ML 100 ML BTL IJ (14:57)
[2019-12-16] MEDS: Normal Saline - Diluent 50 ML VIAL IV (14:57)
== END 2019-12-16 01:09 ==
PROVIDERS: PCP Family Medicine; Visit Provider Otolaryngology
DX: C09.9 Malignant neoplasm of tonsil, unspecified (principal); K14.8 Other diseases of tongue; C76.0 Malignant neoplasm of head, face and neck
CPT/HCPCS: 70491; 80053; 83735; 85025; J3490

== ENCOUNTER 2020-01-29 01:53 | Outpatient (CLI) | payer OTHER, SELFPAY ==
[2020-01-30 15:19] LABS: SARS-CoV-2 RNA Not Detected (NotDetected); SARS-CoV-2 RNA Source Nasal/Nares
== END 2020-01-29 02:13 ==
PROVIDERS: PCP Family Medicine; Visit Provider Family Medicine
DX: Z11.59 Encounter for screening for other viral diseases (principal); Z01.818 Encounter for other preprocedural examination
CPT/HCPCS: U0003

== ENCOUNTER 2020-02-03 01:03 | Outpatient (CLI) | payer OTHER, SELFPAY ==
--- NOTE | 2020-02-03 08:45 | DI.RAD_ITS ---
TECHNIQUE: Modified barium swallow was performed in conjunction with speech pathology. CONTRAST MATERIAL: Oral barium Oral water soluble contrast was administered. COMPARISON: No exams were available for comparison FINDINGS: There was no evidence of penetration or aspiration of administered various consistencies. A radiopaq ue barium pill also distended the esophagus into the stomach without significant holdup. There is a hypertense upper esophageal sphincter noted. No evidence of hiatal hernia. No Zenker's diverticulum . IMPRESSION: No evidence of aspiration.. The pathology report to follow.
--- NOTE | 2020-02-03 14:38 | ST.MBS_ITS ---
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 Previous Imaging: Videofluoroscopy / Modified Barium Swallow [VFSS/MBSS] (07/2019) Flexible Laryngoscopy (08/06/2019) Flexible Laryngoscopy (01/23/2020) Patient assessed by ACCOUNTS RECEIVABLE COORDINATOR in outpatient setting prior to this exam for clinical swallowing evaluation and patient motivational interview. Subjective: Recently reports increased coughing with po intake and significant changes in vocal quality; patient reports ENT visit from 01/23/20 indicated L vocal fold paralysis (unable to view ENT report at this time, glottic closure ability is unknown until ENT report can be accessed). Objective: Videofluoroscopic Swallow Study (VFSS) was conducted in the lateral and [id number] projections by Speech-Language Pathologist, in collaboration with Radiologist, to evaluate oropharyngeal swallow function. Anatomic view under fluoroscopy: WFL PO barium contrast trials: Oral barium Oral water soluble contrast was administered. Specifically, Varibar thin liquid (40% w/v), Varibar nectar/mildly thick liquid (40% w/v), Varibar thin honey (moderately-thick) liquid (40% w/v), Varibar pudding (40% w/v), and solid coated in Varibar pudding, 13 mm barium tablet. Oral phase findings: Lip closure: 0-no labial escape Tongue control: 0-cohesive bolus between tongue and palatal seal Bolus preparation: 0-timely and efficient chewing and mashing, rotary chew WFL Bolus transport/lingual motion: 0-brisk tongue motion Oral residue: 0-complete oral clearance Pharyngeal phase findings: Initiation of swallow: 3-bolus head in pyriforms Velar elevation: 0-no bolus between SP/PW Laryngeal elevation: 2- minimal superior movement of thyroid cartilage with minimal approximation of arytenoids to epiglottic petiole Anterior hyoid excursion: 1-partial anterior movement Epiglottic movement: 1-partial inversion Laryngeal vestibule closure: 0-complete; no contrast in the laryngeal vestibule Pharyngeal stripping wave: 1-present?diminished Pharyngeal contraction: 2 unilateral bulging on left PES openin-partial distention/partial duration; partial obstruction of flow BOT retraction: 1-trace column of contrast between TB and PW Pharyngeal residue: 2-collection of residue within or on pharyngeal structures, diffuse (>3 pharyngeal areas, majority of residue noted in vallecular space and/or with in bilateral piriform sinuses, also noted along the posterior pharyngeal wall and occasionally along aryepiglottic folds) Esophageal findings: NOTE: This study was performed for interpretation only of the oropharyngeal and pharyngoesophageal domains of swallowing. It is not intended to diagnose any other radiologic abnormalities or substitute for a formal esophagram study. Esophageal clearance: 1-esophageal retention (slight-mild, cleared with liquid wash) *Small hypertrophy noted at vertebral level C4-C5 8-point Penetration-Aspiration Scale (PAS) Kim Pharyngeal Residue Severity Rating Scale [Valleculae/Pyriform Sinus] IDDSI Level: 0 - Thin liquid via tsp/5ml PAS: 1 Kim: 2/3 via cup sip PAS: 1 Kim: 3/3 sequential swallow PAS: 1 Kim: 3/4 (likely L>R) 2 - Mildly Thick PAS: 1 [place]: 3/4 (likely L>R) 3- Moderately thick/Liquidised PAS: 1 Kim: 4/ 4 - Extremely Thick/Pureed PAS: 1 [place]: 4 7 - Regular PAS: 1 (2 post secondary swallow) Kim: 5/3 (3/5 post secondary swallow) 13mm barium pill +thin liquid via cup sip PAS: 1 [place]: 3/3 Compensatory Swallow Strategies: Reduced bolus volume - successful in reducing severity of residue in both vallecular and/or PS Secondary swallow x1 - successful in reducing severity of residue in both vallecular and/or PS Secondary swallow x2 - successful in reducing severity of residue in both vallecular and/or PS Effortful swallow - successful in reducing severity of residue in both vallecular and/or PS Thin liquid wash - successful in reducing severity of residue in both vallecular and/or PS Dysphagia Outcome and Severity Scale (MYAH): 5-6 Assessment: Swallow efficiency is impaired; swallow safety is grossly preserved, primarily due to complete laryngeal vestibule closure during swallow sequence. Patient demonstrates pharyngoesophageal phase dysphagia, with pharyngeal phase deficits as characterized by delayed swallow initiation, minimal superior movement of thyroid cartilage with minimal approximation of arytenoids to epiglottic petiole, and reduced left sided pharyngeal contraction, resulting in vallecular and pyriform sinus residue (L>R) with trialed consistencies of increased viscosity, esophageal phase deficits characterized by hypertension of UES during swallow sequence, likely resulting in additional PS residue; small hypertrophy noted at vertebral level C4-C5; after solid trial, severe vallecular residue noted with subsequent swallow, during which brief laryngeal penetration of PS residue was noted, which was then immediately ejected from laryngeal vestibule; no evidence of aspiration noted with any trialed consistencies; dysphagia presentation likely due to effects of radiation treatment paired with immobility of L VF as reported by ENT. Swallow prognosis is good-fair pending patient training in effective swallowing strategies as outlined, participation in intensive swallow rehabiliation program, and resolution of vocal fold mobility / left sided weakness currently of unknown etiology. Plan: Diet recommendation: IDDSI 6/0 Diet modification is per patient's preference Risk management: Upright position during + 60 mins after meals small bites/sips, alternate solid/liquid as able May benefit from head turn to L side during swallow to reduce pharyngeal stasis upon swallow initiation *To clear vallecular/PS residue with solids: effortful swallow+thin or mildly thick liquid wash followed by additional effortful swallow Control risk factors for aspiration pneumonia via (a) oral hygiene & (b) maintaining physical mobility as tolerated Specialist referrals: May consider GI to address hypertense UES, per patient preference Ancillary tests: N/A Therapy: Recommend subsequent outpatient session with ACCOUNTS RECEIVABLE COORDINATOR to review results of today's exam and develop treatment plan as appropriate. May address the following: MDTP, compensatory technique training, voice therapy / vocal hygiene as indicated per ENT report (ACCOUNTS RECEIVABLE COORDINATOR unable to access at time of study, will review prior to subsequent follow-up session) Goal: N/A Follow-up exam: N/A Thank you for allowing me to take part in this patient's care. Please feel free to contact me with any questions/concerns. Ella Brumfield MA [facility]-ACCOUNTS RECEIVABLE COORDINATOR Speech Language Pathologist ACCOUNTS RECEIVABLE COORDINATOR Service Code(s): Modified Barium Swallow Study 62748
[2020-02-03] MEDS: Barium Sulfate 40% W/V 240 ML BTL PO (15:19)
[2020-02-03] MEDS: Barium Sulfate 700 MG TAB PO (15:20)
[2020-02-03] MEDS: Barium Sulfate 40% W/V 1500 CPS 250 ML BTL PO (15:20)
[2020-02-03] MEDS: Barium Sulfate Oral Paste 40% W/V 230 ML TUBE PO (15:21)
== END 2020-02-03 01:23 ==
PROVIDERS: PCP Family Medicine; Visit Provider Family Medicine
DX: K22.4 Dyskinesia of esophagus (principal); R13.10 Dysphagia, unspecified; Z85.818 Personal history of malignant neoplasm of other sites of lip, oral cavity, and pharynx
CPT/HCPCS: 92526; 74221

== ENCOUNTER 2020-03-18 04:35 | Outpatient (CLI) | payer OTHER, SELFPAY ==
[2020-03-18 09:21] LABS: Abs Immature Grans 0.01 10^3/uL (0.0-0.06); Absolute Basophil Count 0.04 10^3/uL (0.0-0.2); Absolute Eosinophil Count 0.21 10^3/uL (0.0-0.7); Absolute Lymphocyte Count 0.99 10^3/uL (1.2-3.4); Absolute Neutrophil Count 3.46 10^3/uL (1.2-6.7); Basophils % 0.8; HCT 44.2 % (40.0-50.0); HGB 14.9 g/dL (13.5-17.5); Immature Grans % 0.2; MCHC 33.7 % (32.0-36.0); MCV 91.9 fL (80-95); MPV 8.3 fL (8.0-11.0); Monocytes % 9.6; Neutrophils % 66.4; Nucleated RBC 0 %; Platelet Count 173 10^3/uL (130-400); RBC 4.81 10^6/uL (4.36-5.78); RDW 11.7 % (11.8-14.1); RDW-SD 39.7 fL; WBC 5.21 10^3/uL (4.4-10.8)
[2020-03-18 09:44] LABS: ALT 31 U/L (16-63); AST 17 U/L (15-37); Albumin 3.8 g/dL (3.4-5.0); Alkaline Phosphatase 55 U/L (46-116); Anion Gap 4.9 mmol/L (3-11); BUN 16 mg/dL (7-18); Bilirubin, Total 0.7 mg/dL (0.2-1.0); CO2 31.1 mmol/L (21.0-32.0); Calcium 9.1 mg/dL (8.5-10.1); Chloride 104 mmol/L (98-107); Glucose 101 mg/dL (74-106); Potassium 4.5 mmol/L (3.5-5.1); Sodium 140 mmol/L (136-145); TSH 2.44 uIU/mL (0.36-3.74); Total Protein 7.3 g/dL (6.4-8.2)
== END 2020-03-18 04:55 ==
PROVIDERS: PCP Family Medicine; Visit Provider Internal Medicine Hematology & Oncology
DX: C09.9 Malignant neoplasm of tonsil, unspecified (principal); R05 Cough; R53.83 Other fatigue
CPT/HCPCS: 36415; 80053; 84443; 85025

== ENCOUNTER 2021-01-29 02:44 | Outpatient (CLI) | payer OTHER, SELFPAY ==
[2021-01-29 08:31] LABS: Abs Immature Grans 0.02 10^3/uL (0.0-0.06); Absolute Basophil Count 0.03 10^3/uL (0.0-0.2); Absolute Eosinophil Count 0.19 10^3/uL (0.0-0.7); Absolute Lymphocyte Count 1.07 10^3/uL (1.2-3.4); Absolute Monocyte Count 0.45 10^3/uL (0.1-0.8); Absolute Neutrophil Count 4.59 10^3/uL (1.2-6.7); Basophils % 0.5; HCT 43.4 % (40.0-50.0); HGB 14.9 g/dL (13.5-17.5); Immature Grans % 0.3; Lymphocytes % 16.9; MCH 31.1 pg (27.0-33.0); MCHC 34.3 % (32.0-36.0); MCV 90.6 fL (80-95); MPV 8.4 fL (8.0-11.0); Monocytes % 7.1; Neutrophils % 72.2; Nucleated RBC 0 %; Platelet Count 172 10^3/uL (130-400); RBC 4.79 10^6/uL (4.36-5.78); RDW 11.2 % (11.8-14.1); RDW-SD 37.7 fL; WBC 6.35 10^3/uL (4.4-10.8)
[2021-01-29 09:37] LABS: ALT 26 U/L (16-63); AST 17 U/L (15-37); Albumin 3.9 g/dL (3.4-5.0); Alkaline Phosphatase 55 U/L (46-116); Anion Gap 8.9 mmol/L (3-11); BUN 16 mg/dL (7-18); Bilirubin, Total 0.6 mg/dL (0.2-1.0); CO2 27.1 mmol/L (21.0-32.0); CREATININE 1.2 mg/dL (0.70-1.30); Calculated LDL 184 mg/dL (<100); Chloride 104 mmol/L (98-107); Cholesterol 256 mg/dL (<200); Glucose 102 mg/dL (74-106); HDL Cholesterol 54 mg/dL (40-60); Potassium 4.3 mmol/L (3.5-5.1); Sodium 140 mmol/L (136-145); TSH (W/Ref FT4) 3.04 uIU/mL (0.36-3.74); Total Protein 6.7 g/dL (6.4-8.2); Triglyceride 90 mg/dL (<150)
[2021-02-01 11:05] LABS: HIV-1/2 Ag & Ab Screen Negative (Negative)
[2021-02-01 11:09] LABS: Hepatitis C Ab w Rflx HCV PCR Negative (Negative)
== END 2021-01-29 02:45 | disposition home or self-care (01) ==
LOC: LBO 02:44
PROVIDERS: PCP Family Medicine; Visit Provider Family Medicine
DX: R53.83 Other fatigue; E78.5 Hyperlipidemia, unspecified; I10 Essential (primary) hypertension; Z00.00 Encounter for general adult medical examination without abnormal findings; Z11.4 Encounter for screening for human immunodeficiency virus [HIV]; Z11.59 Encounter for screening for other viral diseases
CPT/HCPCS: 36415; 80053; 80061; 86803; 87389; 84443; 85025

== ENCOUNTER 2021-04-07 03:24 | Outpatient (CLI) | payer OTHER, SELFPAY ==
[2021-04-07 14:19] LABS: TSH 2.12 uIU/mL (0.36-3.74)
== END 2021-04-07 03:25 | disposition home or self-care (01) ==
LOC: LBO 03:24
PROVIDERS: PCP Family Medicine; Visit Provider Preventive Medicine Undersea and Hyperbaric Medicine
DX: C09.9 Malignant neoplasm of tonsil, unspecified (principal)
CPT/HCPCS: 36415; 84443

== ENCOUNTER 2021-09-13 17:52 | Outpatient (CLI) | payer OTHER, SELFPAY ==
[2021-09-13 08:47] LABS: Abs Immature Grans 0.02 10^3/uL (0.0-0.06); Absolute Basophil Count 0.02 10^3/uL (0.0-0.2); Absolute Eosinophil Count 0.19 10^3/uL (0.0-0.7); Absolute Lymphocyte Count 0.94 10^3/uL (1.2-3.4); Absolute Monocyte Count 0.49 10^3/uL (0.1-0.8); Absolute Neutrophil Count 3.32 10^3/uL (1.2-6.7); Basophils % 0.4; Eosinophils % 3.8; HCT 42.5 % (40.0-50.0); HGB 14.3 g/dL (13.5-17.5); Immature Grans % 0.4; Lymphocytes % 18.9; MCHC 33.6 % (32.0-36.0); MCV 92 fL (80-95); MPV 8.2 fL (8.0-11.0); Monocytes % 9.8; Neutrophils % 66.7; Platelet Count 187 10^3/uL (130-400); RBC 4.62 10^6/uL (4.36-5.78); RDW 12.2 % (11.8-14.1); RDW-SD 41.4 fL; WBC 4.98 10^3/uL (4.4-10.8)
[2021-09-13 09:14] LABS: ALT 26 U/L (16-63); AST 18 U/L (15-37); Albumin 3.7 g/dL (3.4-5.0); Alkaline Phosphatase 47 U/L (46-116); Anion Gap 5.5 mmol/L (3-11); BUN 16 mg/dL (7-18); Bilirubin, Total 0.5 mg/dL (0.2-1.0); CO2 30.5 mmol/L (21.0-32.0); CREATININE 1.1 mg/dL (0.70-1.30); Calcium 9.1 mg/dL (8.5-10.1); Chloride 103 mmol/L (98-107); Glucose 98 mg/dL (74-106); Potassium 4.4 mmol/L (3.5-5.1); Sodium 139 mmol/L (136-145); TSH 2.67 uIU/mL (0.36-3.74); Total Protein 7.1 g/dL (6.4-8.2)
--- OUTSIDE RECORDS SUMMARY | 2021-09-13 17:54 | XMS_ITS | Clinical Summary ---
:1975 Author Organization [facility] Address [place] [id number] Care Team Providers Name Role Phone Lisa Wolf MD Primary Care Provider Allergies Active Allergy Reactions Severity Noted Date Comments Magnesium Salicylate Rash 10/11/2018 Medications Medication Sig Dispensed Refills Start Date End Date Status multivitamin Take 1 tablet by 0 Active (THERAGRAN) Tablet mouth daily. cholecalciferol, Take 1,000 Units 0 Active Vitamin D3, 1,000 unit by mouth daily. Tablet pantoprazole EC Take 1 tablet by 180 tablet 3 04/28/2020 Active (Protonix) 20 mg mouth 2 times Tablet, Delayed Release daily. (E.C.) Additional Information Patient not taking. Reported on 09/13/2021 acetaminophen (Tylenol) 500 mg Take 1,000 mg by mouth 0 Active Tablet every 6 hours as needed for Pain. oxyCODONE (Roxicodone) 5 mg Take 1 tablet by mouth 30 tablet 0 04/01/2021 Active Tablet every 4 hours as needed for Pain. Additional Information Patient not taking. 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 Presenting with L neck mass; trivial tobacco history; small L tonsil tumor, EUA 12/10/2018: non-ker SCCa B. Definitive radiation 01/16/2019 - 03/11; high dose cisplatin X 2, c/b grade 3 nausea and gr 2 ototoxcity; switch to weekly carbo+paclitaxel 02/25/2019 C. L hemitongue paresis and atrophy note d 08/2019; emergence of FDG-avid tumor in L carotid sheath/skull base, Bx-confirmed 06/2020; CPS <1 D. Concurrent proton + photon radiation with concurrent carboplatin + paclitaxel + cetuximab, 66 Gy, completed 10/08/2020 E. Persistent disease L skull base, equi vocal lung nodules by imaging 08/2021; chemoimmunotherapy planning in progress 09/2021 Neck mass 10/11/2018 Encounters Date Type Specialty Care Team Description 09/13/2021 Office Visit Hematology and Chris George; Oncology MD Caitlyn Dysphagia, phar yngoesophageal phase; Eosinophilic es ophagitis 09/09/2021 Orders Only Hematology and Chris George Oncology MD Caitlyn 07/05/2021 Transcribe Orders Primary Care Zeynep Wolf MD from Last 3 Months Family History Medical History Relation Comments Kidney Cancer Half-Brother Esophageal Cancer Paternal Uncle Relation Status Comments Half-Brother Paternal Uncle Social History Tobacco Use Types Packs/Day Years Used Date Former Smoker Cigarettes 0.5 3 Quit: 2000 Smokeless Tobacco: Never Used Alcohol Use Standard Drinks/Week Comments Yes 0 (1 standard drink = 0.6 oz pure alcoho l) once or twice a week Alcohol Habits Answer Date Recorded How often do you have a drink containing alcohol? 2-4 times a month 12/27/2018 How many drinks containing alcohol do you have on 1 or 2 12/27/2018 a typical day when you are drinking? How often do you have six or more drinks on one Not asked occasion? Comment: once or twice a week 10/26/2018 Sex Assigned at Date Recorded Not on file Last Filed Vital Signs Vital Sign Reading Time Taken Comments Blood Pressure 134/78 09/13/2021 9:26 AM EDT Pulse 60 09/13/2021 9:26 AM EDT Temperature 36.4 ??C (97.5 ??F) 09/13/2021 9:26 AM EDT Respiratory Rate 18 09/13/2021 9:26 AM EDT Oxygen Saturation 100% 09/13/2021 9:26 AM EDT Inhaled Oxygen Concentration - - Weight 84.6 kg (186 lb 6.4 oz) 09/13/2021 9:26 AM EDT Height 188 cm (6' 2) 09/13/2021 9:26 AM EDT Body Mass Index 23.93 09/13/2021 9:26 AM EDT Plan of Treatment Upcoming Encounters Date Type Specialty Care Team Description 10/04/2021 Office Visit Dermatology Tg Velasco MD [facility] [address] [id number] (Wo rk) Health Maintenance Due Date Last Done Comments HIV screen 1993 Hepatitis C Screening 1993 Lipid Screening 1993 Tdap adult 1994 Tetanus vaccine 1994 Colonoscopy 2020 Covid-19 Vaccine (3 - Booster for Moderna 03/31/20212020, 06/16/2020 series) Influenza (Flu) vaccine ( - 11/04/2021 Influenza standard series) Procedures Procedure Name Priority Date/Time Associated Diagnosis Comme nts LAB SCAN 09/13/2021 12:00 AM Results for this EDT procedure are i n the results section . from Last 3 Months Results SCAN DOC: LAB (09/13/2021 12:00 AM EDT) Narrative This result has an attachment that is no t available. Unknown MEDIA MGR SCAN EXT ORDR/RSLT from Last 3 Months Insurance Payer Benefit Plan / Subscriber ID Effective Dates Phone Addre ss Type Group [employer] [place] [id number] 2021-Present [phone] [address] [place] [id number] [address] (Home) [place] [address] (Work) Advance Directives Latest Code Status on File Code Status Date Activated Date Inactivated Comments Attempt Cardiopulmonary Resuscitation - 06/24/2020 10:14 AM 2020 4:39 AM Inpatient Code Status decision made by: Patient Full Code 12/10/2018 8:41 AM 04/06/2020 9:25 AM Does patient have capacity to make decision: Yes Full Code 10/30/2018 7:28 AM 10/31/2018 4:34 AM Does patient have capacity to make decision: Yes Care Teams Trumpet Player Relationship Specialty Start Date End Date Lisa Wolf MD PCP - General Family Medicine 07/05/[address] [place] [id number]
--- OUTSIDE RECORDS SUMMARY | 2021-09-13 17:54 | XMS_ITS | Encounter Summary ---
:1975 Author Organization [facility] [place] [address] Care Team Providers Name Role Phone Unknown Primary Care Provider Unavailable Encounter Details Date Type Department Care Team Description 03/31/2021 Unscheduled Hematology/Oncology Ella Brumfield ; Encounter at [facility]ib, RECORDS ADMINISTRATOR Vocal cord paralysis [address] [place] [phone] Social History Tobacco Use Types Packs/Day Years Used Date Former Smoker Cigarettes 0.5 3 Quit: 1999 Smokeless Tobacco: Never Used Alcohol Use Standard [...] Assigned at Date Recorded Not on file documented as of this encounter Progress Notes Ella Brumfield, DURGA - 03/31/2021 2:38 PM ESTSummary: RECORDS ADMINISTRATOR Communication Note RECORDS ADMINISTRATOR Communication Note RECORDS ADMINISTRATOR met briefly with patient today per request of Dr. Vences to discuss options for re-initiation of RECORDS ADMINISTRATOR services locally as appropriate; primary focus on trismus management. Subjective: Pt reports main concerns as follows: reduced jaw opening with associated increase in b/l jaw pain, relative ineffectiveness of VF injection (states benefits / reduction in dysphonia lasted ~ 1 month, does report plan to f/u with ENT 04/13/21 Pain: 8-9/10 over the weekend in b/l jaw (reports this happened right after waking up from sleeping overnight; does continue to wear nightguard but admits may need to replace current one), pain reducedto 5/10 with rest over next few days, even better at rest; noticeable tightness began since Feb 2021 / reduction in MEETA (informal measurement per patient: lateral finger test has reduced from baseline of 3 fingers to 2 currently; does have Therabite measurement device at home and will continue to self-monitor MEETA, pain levels until next visit, continue communication with Dr Vences re: pain management. Plan: - Will plan to coordinate with [facility] RECORDS ADMINISTRATOR department to ensure no duplication of services - Patient to continue monitoring pain levels, attend upcoming dentistry visit to discuss possible options for dental nightguard / recommendations for improved comfort; continue to communicate with medical team re: pain levels (amount, length of time, consistency, appropriate management, etc) prior to initiating trismus treatment with RECORDS ADMINISTRATOR Emphasized conservative approach with regard to trismus at this time given reported pain levels - Patient encouraged to bring Therabite and supplemental material from previous trismus treatment sessions (as he is able) to subsequent RECORDS ADMINISTRATOR visit once scheduled, date TBD at this time (pending resolution of jaw pain, approval to re-initiate trismus therapy Ella Brumfield MA CCC-RECORDS ADMINISTRATOR Speech-Language Pathologist documented in this encounter Plan of Treatment Upcoming Encounters Date Type Specialty Care Team Description 10/04/2021 Office Visit Dermatology Tg Velasco MD [facility] [address] [place], [place] [address] (Wo rk) documented as of this encounter Visit Diagnoses Diagnosis Trismus Abnormal involuntary movements Vocal cord paralysis Paralysis of vocal cords or larynx, unsp ecified documented in this encounter Care Teams Trapper Bird Relationship Specialty Start Date End Date Unknown PCP - General 12/04/20 07/04/21 None documented as of this encounter
--- OUTSIDE RECORDS SUMMARY | 2021-09-13 17:54 | XMS_ITS | Encounter Summary ---
:1975 Author Organization [facility] [place] [address] Care Team Providers Name Role Phone Lisa Wolf MD Primary Care Provider Reason for Referral Diagnostic Test (Routine) - Pending Review Specialty Diagnoses / Procedures Referred By Contact Refer red To Contact Radiology Diagnoses Tonsil cancer Chris George MD [facility] Interventionl Rad Procedures IR Mediport Placement [facility] [place] [address] [place] [address] Referral ID Status Reason Start Expiration Visits Visits Date Date Requested Authorized [id number] Pending Specialty 09/13/2021 03/16/2023 1 1 Review Service Requested iagnostic Test (Routine) - New Request Specialty Diagnoses / Procedures Referred By Contact Refer red To Contact Radiology Diagnoses Tonsil cancer Chris George MD [facility] Rad Nuclear Med Procedures NM PET CT Skull Base to Mid-thigh [facility] [place] [address] [place] [address] Referral ID Status Reason Start Expiration Visits Visits Date Date Requested Authorized [id number] New Request Specialty 09/13/2021 03/16/2023 1 1 Service Requested iagnostic Test (Routine) - Authorized Specialty Diagnoses / Procedures Referred By Contact Refer red To Contact Radiology Diagnoses Tonsil cancer Chris George MD [facility] Interventionl Rad Procedures IR Mediport Placement [facility] DR [facility] [place] [address] [place] [address] Referral ID Status Reason Start Expiration Visits Visits Date Date Requested Authorized [id number] Authorized Specialty 09/13/2021 03/16/2023 1 1 Service Requested Encounter Details Date Type Department Care Team Description 09/13/2021 Office Visit Hematology/Oncology Chris George, Tons il cancer; at [facility] Dysphagia, pharyngoesophageal phase; [address] [facility] Eosinophilic esophagitis [facility] [address] ONCOLOGY DEPT. [phone] [place] [address] Social History Tobacco Use Types Packs/Day Years [...] on file documented as of this encounter Last Filed Vital Signs Vital Sign Reading [...] Mass Index 23.93 09/13/2021 9:26 AM EDT documented in this encounter Progress Notes Chris George MD - 09/13/2021 9:30 AM EDT Hematology/Oncology Clinic [facility] Patient Active Problem List Diagnosis ??? Tonsil cancer cT1 N2 M0 p16(+), L tonsil A. Presenting with L neck mass; trivial tobacco history; small L tonsil tumor, EUA 12/10/2018: non-ker SCCa B. Definitive radiation 01/16/2019 - 03/11/2019; high dose cisplatin X 2, c/b grade 3 nausea and gr 2 ototoxcity; switch to weekly carbo+paclitaxel 02/25/2019 C. L hemitongue paresis and atrophy noted 08/2019; emergence of FDG-avid tumor in L carotid sheath/skull base, Bx-confirmed 06/2020; CPS <1 D. Concurrent proton + photon radiation with concurrent carboplatin + paclitaxel + cetuximab, 66 Gy,completed 10/08/2020 E. Persistent disease L skull base, equivocal lung nodules by imaging 08/2021; chemoimmunotherapy planning in progress 09/2021 ??? Chronic cough ??? Eosinophilic esophagitis ??? Dysphagia, pharyngoesophageal phase ??? Vocal cord paralysis ??? Trismus ??? Dysphagia, oropharyngeal phase ??? Drug-induced nausea and vomiting ??? Neck mass Medical oncology follow-up to discuss proceeding with systemic chemoimmunotherapy. I have not seen him in a year and a half. 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 He was referred to [facility] for consideration of proton beam radiotherapy, as this was not surgical disease and he had already undergone full dose radiation shortly before. He was treated with concurrent chemoradiotherapy,with weekly carboplatin plus paclitaxel plus cetuximab, during a total course of 66 Kline radiation. Most of this was delivered by protons, but equipment malfunction required some of this was delivered his photons through IMRT. He completed treatment on 10/08/2020. A G-tube was placed, subsequently removed. He has never had a Mediport. He tolerated this therapy quite well, particularly the radiation part. Chemotherapy was complicated by a severe cetuximab rash, across the neck face and back and with significant paronychia. He also developed grade 2 peripheral neuropathy which is largely resolved. He still has some residual acneiform lesions for which she is going to be seeing a document management specialist. His leftward tongue deviation and atrophy on the left never did improve. At the time his work-up was completed he also developed left vocal cord paralysis. He underwent several injection procedures with temporary improvement in his voice quality. Unfortunately he has developed local persistence and suspected metastatic disease. He has several suspicious lung nodules by CT scan and suspicious regrowth at the left skull base by MRI (both studies at [facility]). Clinical follow-up was recommended because of the difficulty of biopsy and the suspicion that this was metastatic disease not amenable to curative intent therapy; the studies were redone 08/19 and showed progression as documented below. I believe there was a tumor board discussion about his case at [facility] but I do not have these records. Per Dr. Hyatt's note of 08/19/2021 consideration was being given to a combination of carboplatin, fluorouracil, and pembrolizumab. Since treatment here in [facility] would be much more convenient, he comes to discuss this option today. Functionally he is doing well. KPS 90. He notes ongoing tinnitus but this is unchanged from when we were treating him with cisplatin. His functional hearing is quite adequate. As mentioned the peripheral neuropathy during the most recent chemotherapy has resolved. His appetite is good. Swallowing is still a challenge because of the left hemitongue atrophy as well as pharyngeal dysfunction in the leftpart of the throat. He has not had any roldan aspiration problems. He has some mild discomfort in the left occiput, not clear if this is due to progressive cancer or prior treatment. He denies focal neurologic problems, cerebellar dysfunction, cognitive dysfunction. Physical exam: He looks well, although thinner than when I last saw him Oral exam is notable for left hemitongue atrophy. No visible tumor. No trismus. Dentition healthy Neck exam shows grade 1 left neck fibrosis, focal hypopigmentation. No palpable adenopathy The lungs are clear Cardiac exam is normal Abdomen is benign without hepatosplenomegaly or masses. Healed G-tube site. Extremities normal, no clubbing or cyanosis or edema. Skin exam shows a few residual acneiform lesions across the face and chest. Neurologic exam normal except for the left tongue atrophy and leftward deviation. Extraocular movements are normal. Hearing is functionally normal No recent laboratory studies available. Imaging: I do not have the images from [facility] for review, but we have the reports: MRI brain 08/19/2021: FINDINGS: Since June 03, 2021, increased size of heterogeneously enhancing tissue in the in the post-styloid left parapharyngeal space and involving the left cerebellar hemisphere (series 1201, image 25).??Intracranial portion of the lesion measures 1.4 x 1.3 cm, previously 1.2 x 0.9 cm. There is increased mass effect/invasion of the left cerebellar hemisphere. There is increased T2 hyperintense signal in theleft cerebellar hemisphere, likely representing vasogenic edema. There is increased bone marrow edema in the left clivus. (Series 601, image 29), and stable T2 hyperintensity within the left longus capitis. The left jugular vein is partially effaced but remains patent. More inferiorly and medially in the neck in the left parapharyngeal space and there is a separate area of enhancement and T2 hyperintensity, measuring 1.4 x 0.5 cm (series 601, image 9), which appears grossly similar in size since July 16, 2020. Unchanged T2 hyperintense signal in the prevertebral and left parapharyngeal region, likely representing posttreatment effect. T2 hyperintensity within the left submandibular gland likely represents posttreatment effect. Stable appearance of fatty replacement of the left hemitongue with similar degree of prolapse, compatible with left hypoglossal nerve palsy. Atrophy of the left sternocleidomastoid and trapezius muscles are again seen, reflecting denervation of the left accessory nerve. No pathologically enlarged lymph nodes in the neck. The major arterial cervical flow voids are preserved. There is minimal scattered paranasal sinuses mucosal thickening. Stable postprocedural changes in the left neck soft tissues. CT chest 08/19/2021 at [facility]: IMPRESSION: * ??Slight increase in size of subpleural right lower lobe pulmonary nodule, which measures 9 x 6 mm, previously 7 x 6 mm raises concern for metastatic thoracic disease. Other scattered 4 to 8 mm pulmonary nodules, some of which??are branching or partially calcified, are unchanged. * ??New patchy groundglass opacity in the lingula and medial left lower lobe may reflect an infectious or inflammatory process such as aspiration. Impression: Suspicious for tumor persistence/recurrence at the left skull base, and for metastatic disease in the lungs. This cancer has again shown that it is radioresistant, and relatively chemo resistant although he has only had lower dose radiosensitizing chemotherapy. Plan: 1. I will call Dr. Rickey Chery at [facility] to discuss the situation. 2. I favor obtaining a PET/CT to see if we can ascertain the extent of metastatic disease, particularly trying to differentiate the lung findings from benign inflammatory changes. 3. For chemotherapy, I would favor returning to cisplatin rather than carboplatin, with dose reductions to avoid excessive toxicity. I agree with using fluorouracil and pembrolizumab and this combination as per Keynote 048. We discussed the rationale for this, and the rationale for my preference of cis platin over carboplatin. He has already done some reading about the drugs involved, and I will set up a more formal chemotherapy teaching visit. 4. We talked about the goals of therapy. He understands that this disease has an almost 0% possibility of permanent cure, but a higher likelihood of disease control and survival prolongation measured in years, perhaps 2 or 3, perhaps, optimistically, 5. He understands and wishes to proceed, hoping to see his young children grow up as much as possible. 5. I will make arrangements for Mediport placement. Chris George MD, FACP car seat upholsterer Hematology/Oncology Section [facility]/[address] [address] Voice recognition software used for this note; please excuse rubber roller grinder operator errors. I personally reviewed past medical, surgical, family medical histories, reviewed current medications, vital signs, labs, and performed full review of systems. These are documented below the narrative for clarity and succinctness. Outpatient Medications Marked as Taking for the 7/11/22 encounter (Office Visit) with Chris George MD Medication Sig Dispense Refill ??? acetaminophen (Tylenol) 500 mg Tablet Take 1,000 mg by mouth every 6 hours as needed for Pain. ??? multivitamin (THERAGRAN) Tablet Take 1 tablet by mouth daily. Current Facility-Administered Medications for the 09/13/21 encounter (Office Visit) with Chris George MD Medication Dose Route Frequency Provider Last Rate Last Admin ??? lidocaine (Xylocaine) 4 % (40 mg/mL) solution Topical (Top) Once PRN Mihir Vences MD ??? lidocaine (Xylocaine) 4 % (40 mg/mL) solution Topical (Top) Once PRN Mihir Vences MD Review of Systems: Review of systems is negative for other PROGRAM ADVOCATE, bone, pulmonary, cardiac, GI, , extremity, neurologic, endocrine, skin, constitutional, emotional, or functional problems. Vitals Flowsheet Row Office Visit from 09/13/2021 in Hematology/Oncology at [facility] Weight 84.6 kg (186 lb 6.4 oz) Height 188 cm (6' 2) BSA (Calculated - sq m) 2.1 sq meters BMI (Calculated) 23.93 Temp 36.4 ??C (97.5 ??F) Temp src Temporal Heart Rate 60 Heart Rate Source Monitor Resp 18 BP 134/78 BP Location Right arm Patient Position Sitting SpO2 100 % Body surface area is 2.1 meters squared. Wt Readings from Last 3 Encounters: 09/13/21 84.6 kg (186 lb 6.4 oz) 03/31/21 85.9 kg (189 lb 6.4 oz) 12/16/20 83.7 kg (184 lb 9.6 oz) No results found for this or any previous visit (from the past 72 hour(s)). ++++++++++++++++++++++++++++++++++++++++++++++++++++ documented in this encounter Plan of Treatment Upcoming Encounters Date Type Specialty Care Team Description 10/04/2021 Office Visit Dermatology Tg Velasco MD [facility] [address] [place], [place] [address] (Wo rk) Scheduled Orders Name Type Priority Associated Diagnoses Order S chedule IR Mediport Placement Imaging Routine Tonsil cancer Expec chelsy: 09/13/2021 (Approximate), Expires: 03/15/[address] Skull Base to Imaging Routine Tonsil cancer Exp ected: 09/13/2021, Mid-thigh Expires: 2022 IR Mediport Placement Imaging Routine Tonsil cancer Expec chelsy: 09/13/2021 (Approximate), Expires: 03/15/2022 documented as of this encounter Visit Diagnoses Diagnosis Tonsil cancer Malignant neoplasm of tonsil Dysphagia, pharyngoesophageal phase Eosinophilic esophagitis documented in this encounter Care Teams Insulation Batting Machine Operator Relationship Specialty Start Date End Date Lisa Wolf MD PCP - General Family Medicine 07/05/[address] [place] [address] [address] [place] [address] documented as of this encounter
--- OUTSIDE RECORDS SUMMARY | 2021-09-13 17:54 | XMS_ITS | Encounter Summary ---
:1975 Author Organization [facility] [place] [address] Care Team Providers Name Role Phone Unknown Primary Care Provider Unavailable Encounter Details Date Type Department Care Team Description 04/05[facility]20[facility] [address] [phone] Social History Tobacco Use Types Packs/Day Years [...] on file documented as of this encounter Plan of Treatment Upcoming Encounters Date Type Specialty Care Team Description 10/04/2021 Office Visit Dermatology Tg Velasco MD [facility] [address] [place], [place] [address] (Wo rk) documented as of this encounter Visit Diagnoses Not on filedocumented in this encounter Care Teams Senior Consultant Relationship Specialty Start Date End Date Unknown PCP - General 12/04/20 07/04/21 None documented as of this encounter
--- OUTSIDE RECORDS SUMMARY | 2021-09-13 17:54 | XMS_ITS | Encounter Summary ---
:1975 Author Organization [facility] [place] [address] Care Team Providers Name Role Phone Lisa Wolf MD Primary Care Provider Encounter Details Date Type Department Care Team Description 09/09/2021 Orders [facility] [address] [facility] ONCOLOGY DEPT. [place], [place] [phone] Social History Tobacco Use Types Packs/Day Years [...] 10/04/2021 Office Visit Dermatology Tg Velasco MD [facility] [address] [place], [place] [address] (Wo rk) Scheduled Orders Name Type Priority Associated Diagnoses Order S chedule CBC (with Diff) Lab STAT Tonsil cancer Expected: 0 09/09/2021, Expires: 2022 Comprehensive metabolic Lab STAT Tonsil cancer Exp ected: 09/09/2021, panel (non-fasting) Expires: 03/11/2022 TSH Lab STAT Tonsil cancer Expected: 09/2021, Expires: 2022 Comprehensive metabolic Lab Routine Tonsil cancer Exp ected: 09/13/2021 panel (non-fasting) (Approxi mate), Expires: 2022 CBC (with Diff) Lab Routine Tonsil cancer Expected: 0 09/13/2021 (Approximate), Expires: 2022 TSH Lab Routine Tonsil cancer Expected: 09/03 (Approximate), Expires: 2022 documented as of this encounter Visit Diagnoses Diagnosis Tonsil cancer Malignant neoplasm of tonsil documented in this encounter Care Teams Machine Buffer Relationship Specialty Start Date End Date Lisa Wolf MD PCP - General Family Medicine 07/05/[address] [place] [address] [address] [place] [address] documented as of this encounter
--- OUTSIDE RECORDS SUMMARY | 2021-09-13 17:54 | XMS_ITS | Encounter Summary ---
:1975 Demographics Home Phone Preferred Language Unknown Marital Status Unknown Muslim Affiliation Unknown Race Unknown Ethnic Group Unknown Author Organization [facility] Address [address] [place] [address] Care Team Providers Name Role Phone Unavailable Primary Care Provider Unavailable Encounter Details Date Type Department Care Team Description 01/29/2021 Lab Requisition [facility] Outr Resulting Lab, Pathology & Laboratory Provider [facility] [address] [place] [address] Social History Tobacco Use Types Packs/Day Years Used Date Never Assessed Sex Assigned at Date Recorded Not on file documented as of this encounter Plan of Treatment Not on filedocumented as of this encounter Procedures Procedure Name Priority Date/Time Associated Diagnosis Comme nts HEPATITIS C AB W Routine 01/29/2021 8:16 EST Resu lts for this REFLEX TO HCV RNA procedure are in BY PCR the results section. documented in this encounter Results HEPATITIS C AB W REFLEX TO HCV RNA BY PCR (01/29/2021 8:16 EST) Pathologist Sig nature Hep C Antibody Negative Negative [facility] Specimen Blood - Venous blood (substance) Performing Organization Address City/State/ZIP Code Phon e Number [facility] [address] [place] [address] SERVICES documented in this encounter Visit Diagnoses Not on filedocumented in this encounter
--- OUTSIDE RECORDS SUMMARY | 2021-09-13 17:54 | XMS_ITS | Encounter Summary ---
:1975 Author Organization [facility] [place] [address] Care Team Providers Name Role Phone Unknown Primary Care Provider Unavailable Encounter Details Date Type Department Care Team Description 04/09/2021 [facility] [place] [phone] Social History Tobacco Use Types Packs/Day [...] on file documented as of this encounter Miscellaneous Notes Telephone Encounter - Swathi Selby RN - 04/09/2021 1:19 PM EST Radiation Oncology Nurse Telephone Note [facility] [place], [place] ----- Message from Mihir Vences MD sent at 04/09/2021 12:31 PM EST ----- Please call him and let him know his thyroid function is normal and nothing else needs to be done atthis time. Called:[phone] Delvin answered. I read above message to him. He states he has no questions nor does he have any new issues or concerns that need to be addressed today. Patient verbalized understanding of these instructions. He expressed appreciation for this call. documented in this encounter Plan of Treatment Upcoming Encounters Date Type Specialty Care Team Description 10/04/2021 Office Visit Dermatology Tg Velasco MD [facility] [address] [place], [place] [address] (Wo rk) documented as of this encounter Visit Diagnoses Not on filedocumented in this encounter Care Teams Roll Plugger Machine Operator Relationship Specialty Start Date End Date Unknown PCP - General 12/04/20 07/04/21 None documented as of this encounter
--- OUTSIDE RECORDS SUMMARY | 2021-09-13 17:54 | XMS_ITS | Encounter Summary ---
:1975 Demographics Home Phone Preferred Language Unknown Marital Status Unknown [employer] Affiliation Unknown Race Unknown Ethnic Group Unknown Author Organization [facility] Address [address] [place] [address] Care Team Providers Name Role Phone Unavailable Primary Care Provider Unavailable Encounter Details Date Type Department Care Team Description 05/13/2019 Lab Requisition [facility] Unknown, Provider, Pathology & Laboratory [facility] [address] [place] [address] [place] [address] Social History Tobacco Use Types Packs/Day Years Used Date Never Assessed Sex Assigned at Date Recorded Not on file documented as of this encounter Plan of Treatment Not on filedocumented as of this encounter Procedures Procedure Name Priority Date/Time Associated Diagnosis Comme nts CORTISOL Routine 05/13/2019 14:44 EDT Results for this procedure are i n the results section . documented in this encounter Results CORTISOL (05/13/2019 14:44 EDT) Cortisol 5 See Note ug/dL [facility] Comment: LABORATORY SERVICES NOTE: Reference Ranges (from [facility] IF[facility]): Collected Before 10:00 AM: ??4 - 23 ug/dL Collected After 5:00 PM: ?2 - 14 ug/dL The results of this assay ca n be falsely elevated due to the consumption of Biotin. Specimen Blood - Venous blood (substance) Performing Organization Address City/State/ZIP Code Phon e Number [facility] [address] [place] [address] SERVICES documented in this encounter Visit Diagnoses Not on filedocumented in this encounter
--- OUTSIDE RECORDS SUMMARY | 2021-09-13 17:54 | XMS_ITS | Encounter Summary ---
:1975 Author Organization [facility] [address] Care Team Providers Name Role Phone Unknown Primary Care Provider Unavailable Encounter Details Date Type Department Care Team Description 05/26/2021 Notes Only Hematology/Oncology at Ella Brumfield , DOOR GLASS INSTALLER [place] [phone] Social History Tobacco Use Types Packs/Day [...] encounter Progress Notes Ella Brumfield, DURGA - 05/26/2021 11:42 AM EDTSummary: DOOR GLASS INSTALLER Communication Note DOOR GLASS INSTALLER Communication Note DOOR GLASS INSTALLER called patient 05/26/21 to check-in on status of pain levels/treatment plan of care since last visit in March / for re-initiation of DOOR GLASS INSTALLER services locally as appropriate; primary focus on trismus management. Subjective: Pt reports main concerns as follows: reduced jaw opening with associated increase in b/l jaw pain;, relative ineffectiveness of VF injection (states benefits / reduction in dysphonia lasted ~ 1 month, does report plan to f/u with ENT 04/13/21 Pain: consistent pain at 3-4/10 in b/l jaw; noticeable tightness began since Feb 2021 with sharpincrease to 8-9/10 over 5-6 days in March, now reduced since then / still with overall reduction in MEETA (informal measurement per patient: lateral finger test has reduced from baseline of 3 fingers to 2; does have Therabite measurement device at home but not using until he sees Dentistry/TMJ specialist scheduled for 06/08/21; reports he will continue to self- monitor MEETA, pain levels; plans to continue communication with Dr Vences as needed re: pain management and call [facility] to schedule DOOR GLASS INSTALLER follow up. Plan: - Patient to continue monitoring pain levels, attend upcoming dentistry/TMJ specialist visit Emphasized conservative approach with regard to trismus at this time given reported pain levels and recent history; appropriate to re-start manual release techniques as long as no change(s) in pain levels - Patient encouraged to bring Therabite and supplemental material from previous trismus treatment sessions (as he is able) to subsequent DOOR GLASS INSTALLER visit once scheduled, date TBD at this time Ella Brumfield MA CCC-DOOR GLASS INSTALLER Speech-Language Pathologist documented in this encounter Plan of Treatment Upcoming Encounters Date Type Specialty Care Team Description 10/04/2021 Office Visit Dermatology Tg Velasco MD [facility] [address] BL[address]HE DALAL[address]MAT [place], [place] [address] (Wo rk) documented as of this encounter Visit Diagnoses Not on filedocumented in this encounter Care Teams Industrial Engineering Professor Relationship Specialty Start Date End Date Unknown PCP - General 12/04/20 07/04/21 None documented as of this encounter
--- OUTSIDE RECORDS SUMMARY | 2021-09-13 17:55 | XMS_ITS | Encounter Summary ---
:1975 Author Organization [facility] [place] [address] Care Team Providers Name Role Phone Gregg Garcia MD Primary Care Provider Encounter Details Date Type Department Care Team Description 06/04/2020 Telephone Gastroenterology at [facility] [place] [address] Social History Tobacco Use Types Packs/Day Years [...] this encounter Miscellaneous Notes Telephone Encounter - ClementgoldieninoskaDenia - 06/04/2020 12:25 PM EDT .Delvin Rosario [id number] Diagnosis/Indication: EGD 1. Have you ever had a/an Upper Endoscopy before? Yes: Date 04/22/20 If yes, did you have any problems with the procedure? No What type of sedation was used: General Anesthesia 2. Do you take any blood thinners or have you been diagnosed with a bleeding disorder that increasesyour risk of bleeding with procedures? No 3. Do you have a Pacemaker or Defibrillator device? No 4. Are you a diabetic? No 5. Do you have any Allergies to Eggs, Latex or Medications? Yes: SEE EDH 6. Do you take any Oral Iron Supplements (Including multi-vitamins)? Yes (Multivitamin) 7. Do you have a history of three or more abdominal surgeries? No 8. Have you had a problem with sedation or anesthesia? No 9. Do you use a c-pap machine or oxygen tank? Neither 10. Do you take prescription narcotic pain medications, including suboxone or methodone? No 11. Do you have a preference regarding the gender of your provider? No Preference 12. Is there any other information you would like to us to note for the provider and nursing team who will perform your case? No 13. Say to patient: You must have a responsible democrat who will drive you to your procedure, stay on campus for the entire duration of your procedure, and drive you home from your procedure? *Please Verify the height and weight, and adjust if height and/or weight have changed* Estimated body mass index is 23.11 kg/m?? as calculated from the following: Height as of 06/02/20: 188 cm (6' 2). Weight as of 06/02/20: 81.6 kg (180 lb). Age:45 y.o. documented in this encounter Plan of Treatment Upcoming Encounters Date Type Specialty Care Team Description 10/04/2021 Office Visit Dermatology Tg Velasco MD [facility] [address] DAL[address]DERMAT [place], [place] [address] (Wo rk) documented as of this encounter Visit Diagnoses Not on filedocumented in this encounter Care Teams Continuous Improvement Lead Relationship Specialty Start Date End Date Gregg Garcia MD PCP - General General Internal Medicine 09/24/[address] [place] [address] documented as of this encounter
--- OUTSIDE RECORDS SUMMARY | 2021-09-13 17:55 | XMS_ITS | Encounter Summary ---
:1975 Author Organization [facility] [place] [address] Care Team Providers Name Role Phone Gregg Garcia MD Primary Care Provider Reason for Visit Reason Onset Date Comments Reminder Appointment 06/03/2020 Encounter Details Date Type Department Care Team Description 06/03/2020 Telephone Gastroenterology at [facility] Shelley Hall Appointment [facility] [place] [phone] Social History Tobacco Use Types Packs/Day Years [...] this encounter Miscellaneous Notes Telephone Encounter - Wilma Hall LNA - 06/03/2020 9:16 AM EDT Called patient to review medications and allergies for their upcoming gastroenterology Type of Appointment: Telehealth appointment. Reach Patient during MA Check: No, Left Message Notes for the provider: Notes for the nurse: documented in this encounter Plan of Treatment Upcoming Encounters Date Type Specialty Care Team Description 10/04/2021 Office Visit Dermatology Tg Velasco MD [facility] ER [address] DALAL[address]DER[address] [place], [place] [address] (Wo rk) documented as of this encounter Visit Diagnoses Not on filedocumented in this encounter Care Teams Poultry Farmer Meat Relationship Specialty Start Date End Date Gregg Garcia MD PCP - General General Internal Medicine 09/24/18 [address] [place] [address] documented as of this encounter
--- OUTSIDE RECORDS SUMMARY | 2021-09-13 17:55 | XMS_ITS | Encounter Summary ---
:1975 Author Organization [facility] [place] [address] Care Team Providers Name Role Phone Gregg Garcia MD Primary Care Provider Encounter Details Date Type Department Care Team Description 07/08/2020 TH [place] [facility] Miguelina Gross Cranial neuropathies, multip le; (TeleHealth) [facility] MD [address] [address] NEUROLOGY DEPT [phone] [place], [place] [address] Social History Tobacco Use Types Packs/Day Years [...] documented as of this encounter Progress Notes Miguelina Gross MD - 07/08/2020 8:30 AM EDT Neurology Clinic Telephone/Telehealth Follow-up Note Per COVID19 Restrictions 07/07/20 11:18 PM Patient Name: Delvin CORDON: 1975 PCP: Gregg Garcia MD Patient ID: Delvin Rosario is a 45 y.o. male was evaluated remotely instead of scheduled FU visit. 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 PMHx relevant to diagnosis: Patient Active Problem List Diagnosis ??? Chronic cough ??? Eosinophilic esophagitis Overview Note: Added automatically from request for surgery [id number] ??? Dysphagia Overview Note: Added automatically from request for surgery [id number] ??? Vocal cord paralysis ??? Trismus ??? Dysphagia, oropharyngeal phase ??? Drug-induced nausea and vomiting ??? Tonsil cancer Overview Note: cT1 N2 M0 p16(+), L tonsil A. Presenting with L neck mass; trivial tobacco history; small L tonsil tumor, EUA 12/10/2018: non-ker SCCa B. Definitive radiation 01/16/2019 - 03/11/2019; high dose cisplatin X 2, c/b grade 3 nausea and gr 2 ototoxcity; switch to weekly carbo+paclitaxel 02/25/2019 ??? Neck mass Assessment: Delvin Rosario is a 45 y.o. 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 Cranial nerve most prominently affected is the left XII nerve but also evidence for Xth and XIth nerves. There is facial asymmetry but difficult to determine which side is weak. 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 In one study CN XII was most commonly affected with similar rates reported of X, XI. This can occur in a delayed fashion after radiation. The greatest risk in this setting is the development of recurrent aspirations. It is unlikely this is inflammatory in nature, but I have recommended ganglioside ABx to screen for overlap. There was 1 case reported in which a patient with radiation induced hypoglossal injury responded to high dose methylprednisolone. This was in the setting of progressive and severe bilateral hyoglossal neuropathy. I would not consider this at this point unless symptoms were progressive. If thiswere to be considered, I would proceed with a 3-5 day course of 1g IV. If the ganglioside ABx panel is negative, needle EMG of the Trapezius could be considered to obtain corroborative evidence of myokymia in the XI innervated muscle. Another consideration would be for BSAR SSEPs although the information may be difficult to interpret. NCS to directly test facial nerve may also be helpful. I will follow up with him after ganglioside antibody has been completed by TH. Interval History: Since last visit he has had some progression of symptoms. He continues to have difficulty with hoarseness of his voice and describes symptoms of food getting stuck intermittently with swallowing, as well as spasm occurring in the muscles over the anterior throat. He has shoulder pain as was noted lastvisit that has been persistent. In the last couple of weeks he is also had some feeling of being unwell after eating. He has pain localized to the internal meatus on the left as well as in the back portion of the skull. Relevant work up: Ganglioside antibody panel: Negative NM PET scan: IMPRESSION 1. FDG avid soft tissue fullness in the region of the left carotid sheath extending to the level of the skull base, increased in apparent size and intensity compared to prior PET/CT of 11/2019. This is highly suspicious for recurrent metastasis. 2. A subcentimeter FDG avid left neck level 2 node, increased in size and intensity compared to prior, suspicious for small active jose eduardo metastasis. 3. No definite distant sites of metastasis. 4. CT visualized sub-5 mm pulmonary nodule in the posterior right lower lobe which appears slightly more prominent than on prior CT of 02/2020. This could be due to difference in scanner technique. Attention on follow-up is recommended. Biopsy of left jugular mass:Metastatic non-keratinizing squamous cell carcinoma within soft tissue Past Medical History: Diagnosis Date ??? High cholesterol Medications: Medications 07/07/20 1025 Medication Sig Taking? pantoprazole EC (Protonix) 20 mg Tablet, Delayed Release (E.C.) Take 1 tablet by mouth 2 times daily. cholecalciferol, Vitamin D3, 1,000 unit Tablet Take 1,000 Units by mouth daily. atorvastatin (LIPITOR) 40 mg Tablet Take 40 mg by mouth daily. multivitamin (THERAGRAN) Tablet Take 1 tablet by mouth daily. ubidecarenone (COENZYME Q10) 100 mg Tablet Take by mouth daily. Allergy: Allergies Allergen Reactions ??? Magnesium Salicylate Rash Assessment / Plan: Delvin Rosario is a 45 y.o. male who was evaluated remotely today for what I had thought was radiation-induced multiple cranial neuropathies in the setting of metastatic squamous cancer of the tonsils.However, after completion of imaging studies, a soft tissue thickness suggestive of recurrent metastasis was identified in the region corresponding to the carotid sheath extending up to the basal aspect of the skull; this is in the region of the cranial nerves that are most affected and would be consistent with mass associated injury to cranial nerves. This is likely the etiology although it is a little less clear whether there could be some contribution from radiation associated injury as well. There is nothing to suggest inflammation. However, we did talk about proceeding with electrodiagnostic study simply as a means to provide biomarkers of his current nerve functioning. In particular, information that could be gleaned from nerve conduction would include 7th nerve side to side amplitudes, potentially the integrity of the 5th nerve via a blink study (which could be technically difficult in this setting, so may be of limited utility), and needle EMG of trapezius and shoulder girdle muscles to evaluate for myokymia which would imply radiation associated effect. I was clear that this study would not impact his management at this point, but rather provide a baseline that may or may not be of use for follow-up monitoring of nerve function. As an example, comparison of facial nerve amplitudes may be helpful in providing a more quantitative metric of improvement or response to therapy. We will try to set this up in the near future prior to his initiation of radiation therapy at [facility]. MIGUELINA GROSS MD [facility] Airworthiness Inspector, Neuromuscular Medicine [facility] 07/07/20 11:18 PM documented in this encounter Plan of Treatment Upcoming Encounters Date Type Specialty Care Team Description 10/04/2021 Office Visit Dermatology Tg Velasco MD [facility] DR [address] [place], [place] [address] (Wo rk) documented as of this encounter Visit Diagnoses Diagnosis Cranial neuropathies, multiple Unspecified disorder of cranial nerves Tonsil cancer Malignant neoplasm of tonsil documented in this encounter Care Teams Food Assembler Relationship Specialty Start Date End Date Gregg Garcia MD PCP - General General Internal Medicine 09/24/18 [address] [place] [address] documented as of this encounter
--- OUTSIDE RECORDS SUMMARY | 2021-09-13 17:55 | XMS_ITS | Encounter Summary ---
:1975 Author Organization [facility] [place] [address] Care Team Providers Name Role Phone Gregg Garcia MD Primary Care Provider Encounter Details Date Type Department Care Team Description 06/09/2020 Orders Only Otolaryngology at [facility] Timothy David Tonsil cancer [facility] Latia Weinstein MD (Primary Dx) [place] [address] [facility] [phone] CENTER OTOLARYNGOLOGY DEPT. [place], [place] [address] Social History Tobacco Use Types [...] documented as of this encounter Progress Notes Timothy David MD - 06/09/2020 4:56 PM EDT Orders for CT guided FNAB of skull base lesion placed documented in this encounter Plan of Treatment Upcoming Encounters Date Type Specialty Care Team Description 10/04/2021 Office Visit Dermatology Tg Velasco MD [facility] ER [address] [place], [place] [address] (Wo rk) documented as of this encounter Visit Diagnoses Diagnosis Tonsil cancer - Primary Malignant neoplasm of tonsil documented in this encounter Care Teams Armament Repairer Relationship Specialty Start Date End Date Gregg Garcia MD PCP - General General Internal Medicine 09/24/18 [address] [place] [address] documented as of this encounter
--- OUTSIDE RECORDS SUMMARY | 2021-09-13 17:55 | XMS_ITS | Encounter Summary ---
:1975 Author Organization [facility] [place] [address] Care Team Providers Name Role Phone Gregg Garcia MD Primary Care Provider Encounter Details Date Type Department Care Team Description 05/27/2020 Office Visit Hematology/Oncology Ella Brumfield Voca l cord paralysis; at [facility] FORMING PRESS OPERATOR Dysphagia, oropharyngeal pha se; [address] [place] [address] [place] [phone] Social History Tobacco Use Types Packs/Day Years [...] documented as of this encounter Miscellaneous Notes Treatment - Therapy - Ella Brumfield, FORMING PRESS OPERATOR - 05/27/2020 9:30 AM EDTSummary: FORMING PRESS OPERATOR Follow Up Treatment Speech Language Pathology Treatment Note Patient Profile: Delvin Rosario is a 44 Y m with tonsillar cancer, s/p chemoradiation treatment. Returns to clinic for FORMING PRESS OPERATOR treatment to address dysphonia, ongoing dysphagia symptoms. Interval History: Has had recent ENT visit with laryngoscopy (04/16) showing full motion of Right vocal cord with some scant leukoplakic changes and left vocal cord with paralysis, paramedian positioning; ENT reports lack of overt laryngeal aspiration/penetration, no pooling noted in b/l pyriform sinuses (of note, this was laryngoscopy vs FEES) and patient was advised against VF injection at this timedue to concerns for airway compromise in context of current episodes of difficulties with breathing;EGD (04/06) with upper esophageal stricture, benign appearing and dilation with GI (04/22). Subjective: Reports continued burning sensation and feeling things go down the wrong way about 3x/week which stimulates a more intense coughing fit, some 'gasping' which is temporary (rescue breathing technique has been helpful). When VFEs are done in the morning, feels these have been going pretty consistently, although vocal differences occur throughout the day (reports quality changes from ability to use voice more freely vsvery hoarse and does not talk). Has not been able to review energy conservation techniques for mealtimes, able to review this today. States he feels he has lost about 5 lbs but typically fluctuates in this range anyway. If bending over to pick something up, has felt liquid escape from nose at times. Objective: Pain: 0/10; denies tingling in hands/feet, occasional pain in posterior L neck / shoulder area (not base of skull) VFEs: difficulties with sustained phonation without nasal emissions Able to maintain less breathiness with humming today *If occluding nares, inability to phonate during SOVT voice exercises today As of 05/13/20: MPT: 6.2 seconds, 6.8 seconds with nares occluded RSI = 33 (On PPI 2x/day) Assessment: Pt was seen today for a follow-up FORMING PRESS OPERATOR visit, has been participating in direct voice therapy with slow, gradual improvements in vocal control and stability/resonant placement during sessions, however vocal quality continues to be significantly strained, breathy, and hoarse relative to typical baseline and vocal quality continues to be inconsistent per patient; patient continues to be stimulable for LMRVT technique to initiate less roughness and improved stability at short phrase and eventual conversation level, although difficulties with reducing nasal emissions as of late. Encouraged review of outlined strategies for energy conservation during mealtimes, trialing use of head tilt+turn to L side to reduce initial pooling (likely in pyriform sinus and/or vallecular spaces per overview of recent imaging with ENT), as well as continuing focus on /humm/ exercise to maintain less breathy, resonant placement with full approximation of VFs. Discussed possible benefits of Respiratory Therapy with PFTs especially if dyspnea becomes worse despite ongoing voice therapy and exercise, will explore availability of FEES potentially through FORMING PRESS OPERATOR department in [place], otherwise patient may benefit from repeat VFSE/MBSS to further inform treatment plan of care. Patient demonstrated comprehension with all recommendations regarding his treatment plan to address dysphagia and voice symptoms. Patient continues to be appropriate candidate for continued FORMING PRESS OPERATOR treatment for vocal function given continued motivation and gradual progress to date. Pt will benefit from continued therapeutic interventions to achieve therapy goals as outlined. Diagnosis: left vocal cord paralysis; pharyngoesophageal phase dysphagia Recommendations: Diet: IDDSI Level(s) 6 soft & bite sized solids; 0 thin liquids as tolerated PO medications: whole with sip of liquid Risk Management: Upright position during meals and for at least 30 mins following Small sips and bites while eating Slow rate; swallow between bites Multiple swallows: 4-5 Alternate liquids and solids Excellent oral care Thin liquid wash as needed Speech Therapy Goals: Pt will tolerate least restrictive diet without evidence of dysphagia / aspiration, report of pharyngeal globus. Pt / caregiver will be independent with aspiration precautions, appropriate diet modifications, and safe swallowing strategies. Pt will maintain hydration / nutrition with optimal safety and efficiency. Pt will demonstrate improvement of MPT to baseline of 19 seconds. Plan: Subsequent session in 2 weeks to address direct voice/swallowing treatment as outlined, continue discussion re: additional swallowing exercises and/or trial of additional compensatory techniques. Thank you for allowing me to take part in Mr. Rosario's care. Please feel free to contact me with any questions. Ella Brumfield MA [facility]-FORMING PRESS OPERATOR Speech-Language Pathologist documented in this encounter Plan of Treatment Upcoming Encounters Date Type Specialty Care Team Description 10/04/2021 Office Visit Dermatology Tg Velasco MD [facility] [address] [place] [address] (Wo rk) documented as of this encounter Visit Diagnoses Diagnosis Vocal cord paralysis Paralysis of vocal cords or larynx, unsp ecified Dysphagia, oropharyngeal phase Tonsil cancer Malignant neoplasm of tonsil documented in this encounter Care Teams Assembler Molded Frames Relationship Specialty Start Date End Date Gregg Garcia MD PCP - General General Internal Medicine 09/24/18 [address] [place] [address] documented as of this encounter
--- OUTSIDE RECORDS SUMMARY | 2021-09-13 17:55 | XMS_ITS | Encounter Summary ---
:1975 Author Organization [facility] [place] [address] Care Team Providers Name Role Phone Gregg Garcia MD Primary Care Provider Reason for Visit Reason Onset Date Comments Reminder Appointment 07/15/2020 Encounter Details Date Type Department Care Team Description 07/15/2020 Telephone [place] [facility] [place] Appointment [facility] [place] [address] Social History Tobacco Use Types Packs/Day [...] Telephone Encounter - Wilma Hall LNA - 07/15/2020 8:18 AM EDT Called patient to review medications and allergies for their upcoming gastroenterology Type of Appointment: Telehealth appointment. Reach Patient during MA Check: Yes Notes for the provider: Notes for the nurse: documented in this encounter Plan of Treatment Upcoming Encounters Date Type Specialty Care Team Description 10/04/2021 Office Visit Dermatology Tg Velasco MD [facility] ER [address] [place], [place] [address] (Wo rk) documented as of this encounter Visit Diagnoses Not on filedocumented in this encounter Care Teams Risk Management Director Relationship Specialty Start Date End Date Gregg Garcia MD PCP - General General Internal Medicine 09/24/18 [address] [place] [address] documented as of this encounter
--- OUTSIDE RECORDS SUMMARY | 2021-09-13 17:55 | XMS_ITS | Encounter Summary ---
:1975 Author Organization [facility] [place] [address] Care Team Providers Name Role Phone Gregg Garcia MD Primary Care Provider Encounter Details Date Type Department Care Team Description 07/15/2020 [place] [facility] [place], Dysphagia, unspecified type; (TeleHealth) [facility] Latia Shannon APRN Eosinophilic esophagitis; [place] [address] [facility] Dyspepsia [phone] [place] [address] Social History Tobacco Use Types Packs/Day Years [...] on file documented as of this encounter Patient Instructions Patient InstructionsSiMia barton APRN - 07/15/2020 10:30 AM EDT 1. Try reducing pantoprazole 20mg once daily 30-60 minutes prior to eating first meal (a bit of something is okay). IF your cough Or swallowing becomes more problematic, please resume previous dosing 2. Avoid non-steroidal anti-inflammatory medications (NSAIDs) including but not limited to Advil, ibuprofen, Motrin, Aleve, Excedrin, naproxen, Mobic, indomethacin, and aspirin. Acetaminophen (Tylenol)is okay for aches and pains. 3. Esophageal manometry with impedence pH as previously ordered 4. Follow up as needed Functional Bowel Disorders: Information Handout for Patients and Primary Care Providers Juan Salmon MD, FRCPC + Aj Cole MD, LESLI Mia Peterson, [employer] + Sergey Pinzon APRN [facility] What are functional bowel disorders? ?? These are the most common type of gastrointestinal disorders in the [place] ?? The most common functional bowel disorder in the [place] is irritable bowel syndrome (IBS) ?? Irritable bowel syndrome affects the lower GI tract and can cause bloating, abdominal pain, diarrhea, and constipation ?? Functional dyspepsia (FD) affects the upper GI tract and can cause bloating, burping, heartburn, nausea, fullness and stomach discomfort ?? In functional disorders the gut is structurally/anatomically normal but is not functioning properly due to abnormalities in the enteric (gut) nervous system ?? Two mechanisms - heightened sensitivity of the gut to normal sensations (sensory nerves) and abnormal gut motility (motor nerves) ?? These disorders are caused by a combination of a genetic factors, changes to the gut microbiota (intestinal bacteria) and environmental triggers How common are these disorders and what is the impact? ?? 15-20% of general [place] population has IBS or FD or both ?? 2nd most common cause for lost work days (after common cold) in [place] ?? Estimated $30 billion dollar cost to [place] per year ?? These disorders can have a significant impact on quality of life How is the diagnosis made? ?? The diagnosis of a functional disorder is NOT a ???diagnosis of exclusion?? (common misconception) ?? Investigations may be necessary to look for other disorders (such as celiac disease) if the diagnosis is unclear ?? Work-up may include history (description of symptoms), physical exam, bloodwork, stool studies, diagnostic imaging and endoscopy What is the prognosis? ?? Functional bowel disorders are unfortunately chronic disorders and often have a major impact on patient quality of life, function, and relationships ?? Symptoms may gradually resolve is a small proportion of patients (highest rate in patients with immediate onset of symptoms after infection); snf symptoms are expected in most patients however ?? Intermittent exacerbations (i.e. ???flares?? ) are common and may be caused by stress, infections, antibiotic exposure, and lack of adherence to treatment plans When should a patient be re-evaluated? ?? Patients with stable symptoms do NOT need episodic re-evaluation ?? Subtle changes in symptoms and symptom flares are common ?? Patients should be re-evaluated if they have progression or dramatic changes in symptoms, severe abdominal pain, swallowing difficulties, unexplained weight loss, anemia (low blood counts), or bleeding ?? If you have concerns be sure to talk to your doctor What are the goals of therapy? ?? Ultimately we hope that you to able to achieve prolonged periods of stability with minimal daily symptoms and have a decrease in the frequency/severity of ???flares? However, we believe the most important goal is to help you improve your overall quality of life. ?? For most patients this means doing the things that are important in your life despite having symptoms. ?? This is generally achieved by helping you develop coping skills and helping you achieve a greaterunderstanding of your disorder. ?? Remember, generally complete resolution of symptoms is NOT a realistic goal. How do I use this information? ?? Talk to you primary care provider and/or local trial examiner and share this document. Treatment of functional disorders is a team effort! ?? Set realistic goals! Remember it is unlikely that any one measure will completely eliminate all symptoms ?Start low and go slow?? with all measures to avoid potential side effects ?? Do ONE measure at a time - add measures as needed in a ???step-jorge fashion?? - this will help determine if a particular measure is helpful or not ?? Stay on any measure continuously for at least 4-6 weeks prior to assessing whether or not it is helping (improvements are often slow to occur) ?? After an adequate trial ask yourself if the benefit is worth continuing the treatment ?? Remember there are a limited number of treatment options available. We want to be absolutely surethat a measure is not effective or intolerable before stopping it and considering other options ?? Often patients will need several ???layers?? or ???steps?? of therapy - finding the right combination for you takes time and patience ?? We specifically recommend all patients to do ALL lifestyle and dietary measures AND try using Metamucil (or other psyllium fiber supplement) and probiotics together - this approach benefits most patients ?? OTC (odlr-pok-fwryfuh) medications can be used for ongoing bothersome symptoms as listed below ?? Your provider (PCP or local Gastroenterology provider or [facility] Gastro[facility] provider) may decide to use prescription medications if you have ongoing symptoms despite strict adherence to lifestyle and dietary measures and OTC medications ?? Your provider will give you advice on treatments but it is your responsibility to work on these measures to improve your symptoms. Lack of adherence to recommendations is one of the most common cause for ongoing symptoms. ?? If symptoms are controlled try easing back or stepping down on measures - remember the main goal is to improve quality of life (not necessarily eliminate symptoms). Non-Pharmacologic General Treatments Lifestyle measures ?? Many lifestyle factors can worsen IBS symptoms ?? However, IBS is not caused by these factors (common misconception) ?? These lifestyle factors include the following: ? Inadequate sleep ? Weight gain ? Inadequate exercise ? Stress ? Depression/anxiety - this should be brought up to your Primary Care Provider (if left untreated itis unlikely the functional bowel disorder will improve) Dietary measures ?? Trigger food avoidance - you should re-introduce foods once symptoms settle as overly restrictivediet can be unhealthy and even harmful ?? Fatty foods, spicy foods, alcohol, and caffeine can worsen symptoms ?? Consider a 2 week dairy-free trial for possible lactose-intolerance ?? Your PCP or GI provider can refer you to a dietitian to discuss specialized diets. ?? The overall dietary goal is to allow you to have a well-balanced and nutritious diet Fiber and Fluid ?? Adequate fiber and fluid intake is essential for optimal functioning of the human digestive tract ?? Aim for a fluid intake goal of 8-10 glasses of water a day (caffeine and alcohol count as minus one in calculation) ?? Aim for a fiber intake goal of 30 grams per day - some patients may require more or less ?? Increase fiber by 5 grams per week (remember ???start low and go slow?? ) ?? Fiber can be from multiple dietary sources but supplemental is often helpful ?? Fiber intake should include psyllium fiber; this is the type of fiber used in research studies for treatment of functional disorders ?? Sources of psyllium include All-Bran psyllium buds, Metamucil, Konsyl, bulk psyllium ([employer] food[employer]ores and bulk stores) ?? Specifically we recommend starting Metamucil or Konsyl at a low dosage - start at one teaspoon a day for one week then gradually increase by one teaspoon per week until no further benefit is achieved. ?? Some patients may get bloating when they start a fiber supplement. This generally goes away after1-2 weeks of daily therapy. Try backing off to a lower dose or trying an alternate version (such as sweetener-free Metamucil) ?? If persistent issues try Citrucel (methylcellulose) as an alternate fiber supplement Probiotics ?? Measures aimed at improving the microbiome such as probiotics are a promising area but convincingmedical evidence is still lacking ?? Puon-qol-jcrqwuc supplements including probiotics are not typically evaluated by FDA. The qualityand even safety is often unclear and many products (despite being very expensive) actually do not contain any active ingredients at all! ?? Live-culture yogurts, kombucha, sauerkraut and other dietary sources may help improve your microbiome ?? Align, TuZen, and Visbiome are the three probiotics that are supported by medical research to have benefit for IBS ?? Florastor has been shown to decrease antibiotic-associated diarrhea and post- infectious diarrhea ?? BioK Plus has been shown to decrease antibiotic-associated diarrhea and antibiotic-related infections Qsyx-kvd-Msybjoh Medications for Functional Gut Disorders Based on Symptoms Diarrhea ?? Loperamide (Imodium) should be considered first for mild and intermittent symptoms - start with small doses and take several hours before needed (or even before bed) (it is generally considered safefor long-term use) Constipation ?? Patients with mild constipation can use laxatives ???as needed?? (in other words, if you feel constipated or haven't had a regular bowel movement). However, patients with more severe constipation generally need laxatives on a regular schedule (every day or every second day for example). This is called ???maintenance therapy?? . ?? PEG 3350 (Miralax) is a stool softener that is safe for vermin exterminator usage (no risk of dependency) and the dosage can be adjusted to achieve 1-2 soft bowel movements per day; you can take a capful (17g) twice daily if needed ?? Milk of magnesia and lactulose are alternate stool softeners that are generally safe for regular use in most patients (you should ask your provider first). ?? Bisacodyl (Dulcolax) and senna (Senokot) are stimulant laxatives for occasional use only as they may lead to dependency with regular long-term use. ?? Enemas and bowel preparations (e.g. Colyte or Golytely) can be used to treat severe stool impaction ---- this is called ???rescue therapy?? . Drink 2 litres in 4 hours in the evening then take another 2 litres over 4 hours the next morning. Another option is to mix up 14 capfuls of Miralax with 64 oz of Gatorade. ?? After rescue therapy immediately begin aggressive ???maintenance therapy?? with the therapies above. Bloating/Pain ?? Ensure constipation adequately treated - impacted stool can create a partial obstruction and contribute to pain ?? Peppermint oil may also be useful; a capsule form exists as well (IBgard) ?? Simethicone (Gas-X) can be helpful for occasional usage for ???gas spasms? Acetominophen (Tylenol) is safest analgesic (pain killer) on the gut ?? NSAIDs (e.g. ibuprofen) can cause gut irritation/inflammation - it's best to avoid or use in low doses only ?? Medical cannabis has been used to treat various chronic pain disorders; it has been reported to benefit some patients with pain but has not be rigorously studied and may actually worsen symptoms in some patients with functional disorders. At this point we generally do NOT recommend using medical cannabis to treat functional disorders ?? AVOID narcotics/opioids as they typically make symptoms much worse and there is a risk of addiction and/or dependence ?? Exercise, hot-water bottle/heating pad, warm bath/shower, and warm beverages are also good treatments for painful bloating episodes Heartburn/Nausea/Vomiting/Dyspepsia ?? Acid reducing medications such as proton-pump inhibitors (PPIs) and H2 blockers may be helpful especially if you have gastroesophageal reflux disease (GERD) ?? Often a combination of anti-nausea medications (zsob-sal-xzpcrgi or prescription) works better than high doses of only one medication ?? A herbal product called STW5 (Iberogast) is supported by some studies to help dyspepsia but data on long-term effectiveness and safety is limited ?? L-carnitine and coenzyme Q10 supplements have been reported to be beneficial to some patients with chronic nausea and vomiting ?? If using cannabis (recreational or medical) consider stopping for at least two weeks (ideally a full month). While cannabis has been reported to help some patients with nausea it may actually be contributing to symptoms. Disclaimer ?? This information is intended for education purposes only ?? It is not meant to replace direct patient-provider care ?? All medications should be used under the supervision of a Gastroenterology provider or Primary Care Provider ?? Authors are not liable for misuse/misinterpretation of this information Patient Resources [employer] https://www.gastro.org/practice-guidance/ow-hrblgxx-ohwibz/t opic/gsknjfhtu-ywenk-biudbcvl-ibs Badgut.org https://badgut.org/information-centre/k-n-dwyqvtmbc-topics/ibs/ AboutIBS.org https://www.aboutibs.org/ U[employer].com https://www.[place] [employer]visor[employer]odate.com/contents/hvyynwfvv-oglpp-cexpjqck-iowejp-pql-jpmvop documented in this encounter Progress Notes Mia Peterson APRN - 07/15/2020 10:30 AM EDT [facility] TELEMEDICINE PROGRAM Chief Complaint: Delvin Rosario is a 45 y.o. patient returning today in follow up for PPI responsiveeosinophilic esophagitis and dysphagia Detailed History: 45 y.o. male with neck mass, tonsil cancer with radiation , vocal cord paralysis. During our appointment on 03/24/2020, he endorsed a history of esophageal dysphagia and globus sensation first noted at the time of tonsillar cancer diagnosis. Dysphagia worsened following [address] eatments. Recommendation included esophagram prior to EGD, EGD, combined esophageal manometry with impedance pH, and stopping NSAIDs. During his appointment on 04/28/2020, he endorsed worsening dysphagia over the past month. He endorsed posttussive vomiting. He had stopped taking NSAIDs. Recommendations included pantoprazole twice daily, and EGD for surveillance. During our last appointment on 06/03/2020, he had not yet done the EGD surveillance. He was taking pantoprazole twice daily. He continued tohave dysphagia despite the pantoprazole. Recommendations included continuing pantoprazole, EGD, warmfluids. Interval History: Continues to have dysphagia despite BID PPI. Less coughing with PO intake. Had EGD. Eosinophils no longer present. Has been avoiding NSAIDs. 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 Planning on radiation. Review of systems: 14-point review of systems reviewed and negative except as above. Medications: Outpatient Medications Prior to Visit Medication Sig Dispense Refill ??? pantoprazole EC (Protonix) 20 mg Tablet, Delayed Release (E.C.) Take 1 tablet by mouth 2 times daily. 180 tablet 3 ??? cholecalciferol, Vitamin D3, 1,000 unit Tablet Take 1,000 Units by mouth daily. ??? atorvastatin (LIPITOR) 40 mg Tablet Take 40 mg by mouth daily. 0 ??? multivitamin (THERAGRAN) Tablet Take 1 tablet by mouth daily. ??? ubidecarenone (COENZYME Q10) 100 mg Tablet Take by mouth daily. No facility-administered medications prior to visit. Allergies: is allergic to magnesium salicylate. Past Medical History: has a past medical history of High cholesterol. Past Surgical History: has a past surgical history that includes Laryngoscopy, Dirct, Op Scope, Biopsy (57092) (Bilateral, 12/10/2018); Biopsy Oropharynx ([id number]) (Bilateral, 12/10/2018); Nasal Endoscopy,Dx ([id number]) (Bilateral, 12/10/2018); Upper GI Endoscopy, Diagnostic ([id number]) (N/A, 04/06/2020); Upper Gi E ndoscopy, Biopsy ([id number]) (N/A, 04/22/2020); Dilate Esophagus, Over Guide ([id number]) (N/A, 04/22/2020); Upper Gi Endoscopy, Biopsy ([id number]) (N/A, 06/10/2020); and CT Guided Biopsy Other (06/24/2020). Family History: family history includes Esophageal Cancer in his paternal uncle; Kidney Cancer in his half-brother. denies family history of colon cancer, IBD, or celiac disease in mother father or other family members Social History: reports that he quit smoking about 21 years ago. His smoking use included cigarettes. He has a 1.50 pack-year smoking history. He has never used smokeless tobacco. He reports current alcohol use. He reports previous drug use. No Physical Examination performed during this telemedicine visit Laboratory studies, imaging, and procedures: 1. CBC, CMP, TSH, cortisol 06/13/2019; unrevealing 2. MRI angiography neck 01/20/2020; unrevealing 3. CT chest 02/07/2020; no new or enlarging pulmonary nodules or lymphadenopathy 4. Mod barium swallow 02/02/30 done at [facility]; no evidence of aspiration 5. Esophagram 04/02/2020; transient hold-up of barium tablet and hypopharynx and at the level of the aortic arch. 6. EGD 04/06/2020; benign-appearing esophageal stenosis. Nonobstructing Schatzki ring. Normal stomach.Normal duodenum. 7. EGD 04/22/2020; non-obstructing schatzki ring. Dilated to 19mm. Normal stomach. Normal duodenum. Bx: Up to 18 eosinophils per hpf. 8. EGD 06/10/2020; normal esophagus. Normal stomach. Normal duodenum. Pathology no evidence of eosinophils Assessment/Plan: Mr. Rosario is a 45 y.o. patient with eosinophilic esophagitis. #Eosinophilic esophagitis; EGD 04/22/2020 consistent with eosinophilic esophagitis. A nonobstructing Schatzki ring was found. This was dilatated. EGD 06/10/2020 without evidence of eosinophils on pantoprazole twice daily. He continues to have issues with dysphagia. However coughing and regurgitation has improved. He was recently diagnosed with cancer at the base of his skull, for which he is planning onradiation therapy. #Dysphagia; given his history of radiation, there may be another motility disorder contributing to his symptoms. I have previously ordered a combined esophageal manometry and impedance pH off medications. He may possibly be undergoing further radiation to the neck/throat area. #Dyspepsia; he endorses dyspeptic symptoms. He is not taking NSAIDs. Will try reducing pantoprazole dose to see if there is a change in terms of his symptoms. Consider role of stress. He may benefit from more natural approaches for management of symptoms at this point. Recommendations: -Reduce pantoprazole to 20 mg once daily 30 to 60 minutes prior to eating first meal the day. If cough or swallowing becomes more problematic, resume twice daily dosing -Avoid NSAIDs -Esophageal manometry with impedance pH H as previously ordered -Follow-up with me as needed -Functional bowel disorder handout provided on after visit summary Mia Peterson APRN [facility] [place] [id number] documented in this encounter Plan of Treatment Upcoming Encounters Date Type Specialty Care Team Description 10/04/2021 Office Visit Dermatology Tg Velasco MD [facility] ER DR [address] [place], [place] [address] (Wo rk) documented as of this encounter Visit Diagnoses Diagnosis Dysphagia, unspecified type Eosinophilic esophagitis Dyspepsia Dyspepsia and other specified disorders of function of stomach documented in this encounter Care Teams Assembly Line Inspector Relationship Specialty Start Date End Date Gregg Garcia MD PCP - General General Internal Medicine 09/24/18 [address] [place] [address] documented as of this encounter
--- OUTSIDE RECORDS SUMMARY | 2021-09-13 17:55 | XMS_ITS | Encounter Summary ---
:1975 Author Organization [facility] [place] [address] Care Team Providers Name Role Phone Gregg Garcia MD Primary Care Provider Encounter Details Date Type Department Care Team Description 07/02/2020 Multidisciplinary Care Ot[place]ology at [facility] Kindra David [facility] [place] [address] [place] [address] [place] [address] Social History Tobacco Use Types Packs/Day Years [...] encounter Progress Notes Timothy David MD - 07/02/2020 10:41 AM EDT Images from the original note were not included. Head and Neck Tumor Board Note Site/Stage Recurrent disease Synopsis with pertinent exam findings 45??yo M presenting November 2018 with then 1 y hx of left neck mass and dysphagia x 2 months T2N2 p16+ SCCa Completed chemoradiation Mar 2019. No breaks. Has had more neuro side effects than expected Post treatment PET CT negative Recent presentation to OSH with left hemitongue deviation Exam: left tongue deviation, still eating speaking well. FNL negative, no palpable neck mass Multiple imaging modalities including MRI and PET CT unclear for recurrent disease ??New onset left vocal cord weakness with hoarseness,??tongue deviation, change in speech??no aspiration X January [address] May showing:?? FDG avid soft tissue fullness in the region of the left carotid sheath extending to the level of theskull base (axial images 55 through 69), increased in apparent size and intensity compared to prior PET/CT of 11/29/2019. A subcentimeter FDG avid lymph node in the left level 2 region (axial image 78), increased in size and intensity compared to prior. Normal activity in all other soft tissue regions. 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 DISCUSSION The primary tonsillar tumor ([id number]) was reviewed. The current specimen is ??positive for p40 and p16 supporting the above diagnosis. It appears more pleomorphic ??than the primary tumor. Imaging CT neck/skull base: Asymmetric fatty infiltration of the left hemitongue with stable prominence of the tongue base unchanged compared to prior. No discrete soft tissue masses along the visualized upper aerodigestive tract. No lymphadenopathy. 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 Stable slight ill-defined soft tissue fullness at the left skull base about the jugular foramen. No soft tissue masses within the hypoglossal canal. No osseous destructive changes identified at the skull base Tumor Board Recs Recommend referring patient to [facility] for consideration of proton therapy[facility] If proton therapy not an option, other option would be immunotherapy and chemotherapy * (Based on past studies and the information available at the time of presentation) Specific treatment to be undertaken must ultimaly be determined on an individual basis by the patient and those invoved in her/his treatment) documented in this encounter Plan of Treatment Upcoming Encounters Date Type Specialty Care Team Description 10/04/2021 Office Visit Dermatology Tg Velasco MD [facility] ER [address] [place], [place] [address] (Wo rk) documented as of this encounter Visit Diagnoses Not on filedocumented in this encounter Care Teams Health Navigator Relationship Specialty Start Date End Date Gregg Garcia MD PCP - General General Internal Medicine 09/24/18 [address] [place] [address] documented as of this encounter
--- OUTSIDE RECORDS SUMMARY | 2021-09-13 17:55 | XMS_ITS | Encounter Summary ---
:1975 Author Organization [facility] [place] [address] Care Team Providers Name Role Phone Unknown Primary Care Provider Unavailable Encounter Details Date Type Department Care Team Description 03/31/2021 Office Visit Radiation Oncology at [facility] Mihir MD Tonsil cancer [address] RADIATION ONCOLOGY [place], [place] [id number] [phone] Social History Tobacco Use Types Packs/Day Years [...] Sign Reading Time Taken Comments Blood Pressure 115/70 03/31/2021 1:13 PM EST Pulse 72 03/31/2021 1:13 PM EST Temperature 37.1 ??C (98.8 ??F) 03/31/2021 1:13 PM EST Respiratory Rate 18 03/31/2021 1:13 PM EST Oxygen Saturation 96% 03/31/2021 1:13 PM EST Inhaled Oxygen Concentration - - Weight 85.9 kg (189 lb 6.4 oz) 03/31/2021 1:13 PM with shoes EST Height - - Body Mass Index 24.32 07/13/2020 1:00 PM EDT documented in this encounter Progress Notes Mihir Vences MD - 03/31/2021 1:00 PM EST Images from the original note were not included. Radiation Oncology Follow Up Patient Visit PATIENT NAME: Delvin Rosario DATE OF : 1975 INTERVAL HISTORY ONCOLOGIC HISTORY DIAGNOSIS / TREATMENT OVERVIEW?? 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 Definitive ARCHITECTURE INTERN completed 03/11/19. ?? TREATMENT DETAILS Treatment Intent Curative Site Treated Oropharyngeal primary, involved nodes, elective jose eduardo basins Technique VMAT, SIB Adaptive Plan Required Y Concurrent Chemo Y ONC BCA CHEMO (AMB) 01/16/2019 02/06/2019 02/25/2019 Day, Cycle Day 1, Cycle 1 Day 1, Cycle 2 Day 1, Cycle 1 CARBOplatin (PARAPLATIN) IV ? 202 mg CISplatin (PLATINOL) IV 100 mg/m2/dose 90 mg/m2/dose ?? PACLitaxeL (TAXOL) IV ? 45 mg/m2/dose ?? ONC BCA CHEMO (AMB) 03/04/2019 03/11/2019 Day, Cycle Day 8, Cycle 1 Day 15, Cycle 1 CARBOplatin (PARAPLATIN) IV 218 mg 218 mg CISplatin (PLATINOL) IV ? PACLitaxeL (TAXOL) IV 45 mg/m2/dose 45 mg/m2/dose ?? Clinical Trial No TECHNICAL DETAILS ? Total Dose: 70 Gy @ 2 Gy/fxn, 59.5 Gy @ 1.7 Gy/fxn, 56 Gy @ 1.6 Gy/fxn ?? PLAN IMAGES ? Post-therapy course: PET-CT 06/13/19: 1. No evidence for residual active malignancy in the tonsillar regions. 2. No residual active jose eduardo metastasis in the left neck. 3. A 6 mm residual mildly FDG avid lymph node in the right neck level 2 region, favored to representa posttreatment reactive node. Small residual active jose eduardo metastasis not excluded. 4. No distant sites of metastasis. MBS 07/11/19: No evidence for penetration of the airway or aspiration with any consistency. MRI HN w/ contrast 08/06/19: Extensive left-sided T2 prolongation enlargement and enhancement of the left tongue and left tongue base. Edema involving the left retromolar trigone. Soft tissue edema involving the left and anterior neck. Mild prevertebral edema. This appearance is similar to the recent prior examination of 07/31/2019. Lymphadenopathy within the imaged upper neck. No evidence of skull basemass. No abnormal cranial nerve enhancement. MDTB 08/22/19: Denervation injury seen on physical exam, concordant with MRI, involving left hypoglossal nerve. PET-CT indicated to assess for recurrence PET-CT 08/28/19: The previously seen right-sided hypermetabolic cervical lymph node has resolved. There are new hypermetabolic but not enlarged lymph nodes in the left neck at level two. Given recent therapy and the resolution of the node in the right side of the neck, a reactive process in the left neck is favored as the most likely cause. PET-CT 11/29/19: Hypermetabolic, though not enlarged, lymph nodes persist in the left side of the neck. These lymph nodes appear slightly more intense than seen previously. Although post-treatment related changes may still account for these findings, the increase in intensity is concerning and metastatic disease as a cause should also should be considered. MDTB 12/05/19: Hypermetabolic lymph nodes in the left neck at level two are again seen. These lymph nodes are slightly more intense than noted in the prior study. Discussion: morphologically not appearing to be larger. Plan CT scan of the neck with contrast to reassess. CT HN w/ contrast 12/16/19: No new mass or cervical adenopathy. MRA 01/20/20: 1. Normal appearance of the brain. ??2. Normal intracranial vasculature. ??3. The extracranial carotid and vertebral arteries have a normal appearance. ??4. No evidence for arterial venous shunting within the limitations of an MRI/MRA. ??5. 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 CT Chest w/ contrast 02/07/20: No new or enlarging pulmonary nodule or lymphadenopathy. This could marshall radiation related injury however vascular status at skull base raises concern that cerebral angiogram may be helpful. MDTB 02/20/20: New onset left vocal cord weakness with hoarseness, no aspiration. This could be a radiation related injury however vascular status at skull base raises concern that cerebral angiogram may be helpful. CT HN w/ contrast 05/19/20: Stable appearance of the left hemitongue with fatty infiltration and prominence of the tongue base. PET-CT 06/02/20: 1. FDG avid soft tissue fullness in [...] 3. No definite distant sites of metastasis. CT-guided biopsy 06/24/20: Metastatic non-keratinizing squamous cell carcinoma within soft tissue Referred to [facility] for consideration of re-irradiation, and underwent re- irradiation via proton therapyto a total of 66 Gy with concurrent cetuximab, completed 10/08/20. He did well with treatment. Injection laryngoplasty, esophageal dilation, pharyngoplasty (Dr. Reyna) 12/11/20 MRI HN w/ contrast 03/09/21: 1. No significant interval change in size and extent of the tissue in the left post styloid parapharyngeal space, the left jugular foramen and hypoglossal canal, and minimally into the left posterior fossa. 2. No suspicious new or enlarging cervical lymphadenopathy. 3. No significant interval change in findings related to denervation phenomenon of the left side. Time from therapy completion: ~ 3 years out from initial treatment ~ 5 months out from re-treatment Currently, he has the following symptoms: Symptom Description Intervention Pain Pain associated with bilateral base of skull posteriorly, R > L, intermittent. Over the pastfew months he has noticed increasing trismus (left). On Monday he developed severe pain associatedwith his left jaw, posterior to ramus and along TMJ. More severe with opening, eating, talking. Now improving. Tylenol prn Dysphagia He tolerates most foods very slowly, but requires a great deal of water. . Xerostomia / Dysgeusia Xerostomia is mild; dysgeusia is moderate Neck Fibrosis / Lymphedema / Pain Left shoulder stiffness / neck. Soreness present constantly. PT ongoing. Doing home exercises Dental Following with dentistry. Using fluoride wash. Nutrition Issues / Weight Loss Stable Feeding Tube Not Present Skin Denies Otalgia / Hearing Changes No otalgia; tinnitus still present, constant. Smoking Status Not smoking Voice Changes Weak voice, nasal, soft. Improvement after IL initially, but faded. Other Energy is moderate. ECOG PS: 1 Grade ECOG PERFORMANCE STATUS 0 Fully active, able to carry on all pre-disease performance without restriction 1 Restricted in physically strenuous activity but ambulatory and able to carry out work of a light or sedentary nature 2 Ambulatory and capable of all selfcare but unable to carry out any work activities; up and about > 50% of waking hours 3 Capable of only limited selfcare; confined to bed or chair more than 50% of waking hours 4 Completely disabled; cannot carry on any selfcare; totally confined to bed or chair EXAM Vitals: 03/31/21 1313 BP: 115/70 Patient Position: Sitting Pulse: 72 Resp: 18 Temp: 37.1 ??C (98.8 ??F) TempSrc: Temporal SpO2: 96% Weight: 85.9 kg (189 lb 6.4 oz) Physical Exam Constitutional: Appearance: He is well-developed. HEENT: Mouth/Throat: Comments: Visual inspection of OC and OP revealed no evidence of suspicious masses or lesions. Post-treatment left posterior oropharynx. Left tongue muscular atrophy. Tongue midline with protrusion. Palpation revealed no suspicious masses and no induration along the posterior tongue. Moisture good. Pt with teeth in good repair. Mild tenderness along left mandible with palpation. No erythema. No masses or lesions. TMJ appears intact. Eyes: Pupils: Pupils are equal, round, and reactive to light. Neck: Comments: Palpation reveals no adenopathy in cervical, SCLV, ICLV jose eduardo basins. Moderate fibrosis left neck, severe at base of skull. Cardiovascular: Rate and Rhythm: Normal rate. Pulmonary: Effort: Pulmonary effort is normal. Breath sounds: Normal breath sounds. Skin: Findings: No erythema. Neurological: Mental Status: He is alert and oriented to person, place, and time. Cranial Nerves: No cranial nerve deficit. Comments: CN II, III, IV, , VII, V grossly intact. CN XII palsy on left, with evidence of tongue atrophy and tongue deviation to left on protrusion. Mild CN XI palsy with slight weakness of left shoulder. Psychiatric: Behavior: Behavior normal. Procedures: HISTORY Allergies as of 03/31/2021 - Review Complete 03/31/2021 Allergen Reaction Noted ??? Magnesium salicylate Rash 10/11/2018 Past Medical History: Diagnosis Date ??? High cholesterol Past Surgical History: Procedure Laterality Date ??? CT GUIDED BIOPSY OTHER 06/24/2020 CT Guided Biopsy Other 06/24/2020 [facility] RAD CAT SCAN ??? PRO BIOPSY OROPHARYNX Bilateral 12/10/2018 BIOPSY, OROPHARYNX (WRVU 1.44) performed by Timothy David MD at [facility] MAIN OR ??? PRO DILATE ESOPHAGUS, OVER GUIDE N/A 04/22/2020 ESOPHAGEAL DILATION OVER GUIDE WIRE (WRVU 1.51) performed by Mil Beckwith MD at [facility] ENDOSCOPY ??? PRO LARYNGOSCOPY, DIRCT, OP SCOPE, BIOPSY Bilateral 12/10/2018 LARYNGOSCOPY, MICROSCOPE, WITH BIOPSY (WRVU 3.55) performed by Timothy David MD at [facility] MAIN OR ??? PRO NASAL ENDOSCOPY, DX Bilateral 12/10/2018 NASAL ENDOSCOPY DIAGNOSTIC, UNILATERAL OR BILATERAL (WRVU 1.1) performed by Timothy David MD at [facility] MAIN OR ??? PRO UPPER GI ENDOSCOPY, BIOPSY N/A 04/22/2020 EGD WITH BIOPSY (WRVU 2.49) performed by Mil Beckwith MD at [facility] ENDOSCOPY ??? PRO UPPER GI ENDOSCOPY, BIOPSY N/A 06/10/2020 EGD WITH BIOPSY (WRVU 2.49) performed by Nehemiah Zaman MD at [facility] ENDOSCOPY ??? PRO UPPER GI ENDOSCOPY, DIAGNOSTIC N/A 04/06/2020 EGD, UPPER GI ENDOSCOPY performed by Juan Carrlilo MD at [facility] MAIN OR Social History Socioeconomic History ??? Marital status: Spouse name: Shena ??? Number of children: 2 ??? Years of education: Not on file ??? Highest education level: Not on file Occupational History ??? 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 Smoking status: Former Smoker Packs/day: 0.50 Years: 3.00 Pack years: 1.50 Types: Cigarettes Quit date: 2000 Years since quittin.0 ??? Smokeless tobacco: Never Used Vaping Use ??? Vaping Use: Never used Substance and Sexual Activity ??? Alcohol use: Yes Comment: once or twice a week ??? Drug use: Not Currently ??? Sexual activity: Not on file Comment: deferred Other Topics Concern ??? Not on file Social History Narrative ??? Not on file Social Determinants of Health Financial Resource Strain: Not on file Food Insecurity: Not on file Transportation Needs: Not on file Physical Activity: Not on file Housing Stability: Not on file Family History Problem Relation Age of Onset ??? Esophageal Cancer Paternal Uncle ??? Kidney Cancer Half-Brother ROS: I reviewed and agree with the nursing review of systems accompanying this encounter. The remainder of the comprehensive review of systems was negative with the exception of the pertinent positivesand negatives noted above. MEDICATIONS Current Outpatient Medications on File Prior to Visit Medication Sig Dispense Refill ??? acetaminophen (Tylenol) 500 mg Tablet Take 1,000 mg by mouth every 6 hours as needed for Pain. ??? multivitamin (THERAGRAN) Tablet Take 1 tablet by mouth daily. ??? pantoprazole EC (Protonix) 20 mg Tablet, Delayed Release (E.C.) Take 1 tablet by mouth 2 times daily. (Patient not taking: Reported on 12/16/2020) 180 tablet 3 ??? cholecalciferol, Vitamin D3, 1,000 unit Tablet Take 1,000 Units by mouth daily. ??? [DISCONTINUED] ubidecarenone (COENZYME Q10) 100 mg Tablet Take by mouth daily. Current Facility-Administered Medications on File Prior to Visit Medication Dose Route Frequency Provider Last Rate Last Admin ??? lidocaine (Xylocaine) 4 % (40 mg/mL) solution Topical (Top) Once PRN Mihir Vences MD IMAGING/LAB I have personally reviewed the imaging reports and images referenced in the oncologic hx and agree with the assessment as stated. Further pertinent imaging data below TSH 03/18/20: 2.44 ASSESSMENT / PLAN Disease Status: Stable findings on physical exam, and recent MRI at [facility] reveals no evidence of progression. We discussed these results in detail. At this point continued observation is warranted. Toxicity: ?? Shoulder: undergoing PT with some improvement of left shoulder movement / strength ?? Voice: to see Ella Brumfield re CORPORATION SECRETARY, working with Dr. Sevilla ?? Dysphagia: stable ?? Left jaw pain / mandibular pain: improving, perhaps related to subluxation of joint. Recommended NSAIDs. He will call if his symptoms do no continue to improve. ?? Dental: following with dentistry ?? Thyroid Function: pending at [facility] FU: follow with [facility], to see me in 6 months documented in this encounter Plan of Treatment Upcoming Encounters Date Type Specialty Care Team Description 10/04/2021 Office Visit Dermatology Tg Velasco MD [facility] ER [address] [place], [place] [address] (Wo rk) Scheduled Orders Name Type Priority Associated Diagnoses Order S chedule TSH Lab Routine Tonsil cancer Expected: 03/07, Expires: 10/02/2021 documented as of this encounter Visit Diagnoses Diagnosis Tonsil cancer Malignant neoplasm of tonsil documented in this encounter Care Teams Oriental Rug Stretcher Relationship Specialty Start Date End Date Unknown PCP - General 12/04/20 07/04/21 None documented as of this encounter
--- OUTSIDE RECORDS SUMMARY | 2021-09-13 17:55 | XMS_ITS | Encounter Summary ---
:1975 Author Organization [facility] [place] [address] Care Team Providers Name Role Phone Gregg Garcia MD Primary Care Provider Encounter Details Date Type Department Care Team Description 07/27/2020 Notes Only [facility] [address] [phone] Social History Tobacco Use [...] as of this encounter Progress Notes Ella Brumfield SLP - 07/27/2020 9:10 AM EDTSummary: SUPPLY CHAIN TECH Communication SUPPLY CHAIN TECH Communication Note SUPPLY CHAIN TECH received e-mail from patient indicating VFSE/MBSS has been scheduled through [facility] SUPPLY CHAIN TECH department at this time, and that his treatments will begin August 18. Plan: Will plan to coordinate with [facility] SUPPLY CHAIN TECH department to meet patient needs locally as needed. Ella Brumfield MA CCC-SUPPLY CHAIN TECH Speech-Language Pathologist documented in this encounter Plan of Treatment Upcoming Encounters Date Type Specialty Care Team Description 10/04/2021 Office Visit Dermatology Tg Velasco MD [facility] [address] [place], [place] [address] (Wo rk) documented as of this encounter Visit Diagnoses Not on filedocumented in this encounter Care Teams Validation Intern Relationship Specialty Start Date End Date Gregg Garcia MD PCP - General General Internal Medicine 09/24/18 [address] [place] [address] documented as of this encounter
--- OUTSIDE RECORDS SUMMARY | 2021-09-13 17:55 | XMS_ITS | Encounter Summary ---
:1975 Author Organization [facility] [place] [address] Care Team Providers Name Role Phone Gregg Garcia MD Primary Care Provider Encounter Details Date Type Department Care Team Description 07/07/2020 Telephone Neurology at [facility] Miguelina Shannon MD [place] [phone] NEUROLOGY DEPT [phone] [place], [place] [address] (Wo rk) Social History Tobacco Use Types Packs/Day Years [...] this encounter Miscellaneous Notes Telephone Encounter - Rose Case RN - 07/07/2020 10:25 AM EDT Spoke with the patient by phone to review medications and allergies prior to upcoming telehealth appointment scheduled with the Neurology provider. Medication profile updated. documented in this encounter Plan of Treatment Upcoming Encounters Date Type Specialty Care Team Description 10/04/2021 Office Visit Dermatology Tg Velasco MD [facility] ER [address] [place], [place] [address] (Wo rk) documented as of this encounter Visit Diagnoses Not on filedocumented in this encounter Care Teams Wind Instrument Repairer Relationship Specialty Start Date End Date Gregg Garcia MD PCP - General General Internal Medicine 09/24/18 9 [address] [place] [address] documented as of this encounter
--- OUTSIDE RECORDS SUMMARY | 2021-09-13 17:55 | XMS_ITS | Encounter Summary ---
:1975 Author Organization [facility] [place] [address] Care Team Providers Name Role Phone Gregg Garcia MD Primary Care Provider Encounter Details Date Type Department Care Team Description 06/03/2020 Telephone Gastro[place]ology at [facility] [place] [place] [phone] Social History Tobacco Use Types Packs/Day [...] this encounter Miscellaneous Notes Telephone Encounter - Lazara Larson - 06/03/2020 3:35 PM EDT documented in this encounter Plan of Treatment Upcoming Encounters Date Type Specialty Care Team Description 10/04/2021 Office Visit Dermatology Tg Velasco MD [facility] [address] [place], [place] [address] (Wo rk) documented as of this encounter Visit Diagnoses Not on filedocumented in this encounter Care Teams Liberal Arts And Humanities Chair Relationship Specialty Start Date End Date Gregg Garcia MD PCP - General General Internal Medicine 09/24/18 [address] [place] [address] documented as of this encounter
--- OUTSIDE RECORDS SUMMARY | 2021-09-13 17:55 | XMS_ITS | Encounter Summary ---
:1975 Author Organization [facility] [place] [address] Care Team Providers Name Role Phone Gregg Garcia MD Primary Care Provider Reason for Visit Diagnostic Test (Routine) - Closed Specialty Diagnoses / Procedures Referred By Contact Refer red To Contact Radiology Diagnoses Tonsil cancer Dysphagia, unspecified type Timothy David MD [facility] Rad Nuclear Med Procedures NM PET CT Standard Plus Head and Neck [facility] [place] [address] [place] [address] Referral ID Status Reason Start Date Expiration Date Visits V isits Requested Authorized [id number] Closed Specialty 05/21/2020 11/17/2020 1 1 Service Requested Encounter Details Date Type Department Care Team Description 06/02/2020 Hospital Encounter Nuclear Medicine at [facility] Mary Hitchcock MD [facility] [place] [address] OTOLARYNGOLOGY DEPT. [phone] [place], [place] [address] (Wo rk) Social History Tobacco [...] on file documented as of this encounter Medications at Time of Discharge Medication Sig Dispensed Refills Start Date End Date multivitamin (THERAGRAN) Take 1 tablet by 0 Tablet mouth daily. pantoprazole EC (Protonix) Take 1 tablet by 180 tablet 3 20 mg Tablet, Delayed mouth 2 times Release (E.C.) daily. cholecalciferol, Vitamin Take 1,000 Units 0 D3, 1,000 unit Tablet by mouth daily. methylPREDNISolone (Medrol, Use as directed 21 tablet 0 01/202107/07/2020 Riley,) 4 mg Tablets, Dose on product Pack package. ubidecarenone (COENZYME Take by mouth 0 03/31/2021 Q10) 100 mg Tablet daily. documented as of this encounter Plan of Treatment Upcoming Encounters Date Type Specialty Care Team Description 10/04/2021 Office Visit Dermatology Tg Velasco MD [facility] ER [address] [place], [place] [address] (Wo rk) documented as of this encounter Procedures Procedure Name Priority Date/Time Associated Diagnosis Comme nts NM PET CT STANDARD Routine 06/02/2020 10:17 AM Tonsil ca ncer Results for this PLUS HEAD AND NECK EDT Dysphagia, procedure are in unspecified type the results section. POCT GLUCOSE Routine 06/02/2020 8:45 AM Results f or this EDT procedure are i n the results section. documented in this encounter Results POCT Glucose (06/02/2020 8:45 AM EDT) P athologist Signature POC Glucose 101 65 - 199 BONNIE LUKAS mg/dL [facility] Comment: Supplemental ranges: <140 mg/dL before meals <180 mg/dL all other times of the day Specimen Anatomical Collection Method Collection Time Receive d Time (Source) Location / / Volume Laterality Blood specimen 06/02/2020 8:45 AM 021 8:45 (specimen) EDT AM EDT Timothy David MD POINT OF CARE TEST ORDERABLE S Performing Organization Address City/State/[place] [address] documented in this encounter Visit Diagnoses Not on filedocumented in this encounter Care Teams Axle Bearing Polisher Relationship Specialty Start Date End Date Gregg Garcia MD PCP - General General Internal Medicine 09/24/18 [address] [place] [address] documented as of this encounter
--- OUTSIDE RECORDS SUMMARY | 2021-09-13 17:55 | XMS_ITS | Encounter Summary ---
:1975 Author Organization [facility] [place] [address] Care Team Providers Name Role Phone Gregg Garcia MD Primary Care Provider Reason for Referral Diagnostic Test (Routine) - Closed Specialty Diagnoses / Procedures Referred By Contact Refer red To Contact Radiology Diagnoses Tonsil cancer Dysphagia, unspecified type Timothy David MD [facility] Rad Nuclear Med Procedures NM PET CT Standard Plus Head and Neck [facility] [place] [address] [place] [address] Referral ID Status Reason Start Date Expiration Date Visits V isits Requested Authorized [id number] Closed Specialty 05/21/2020 11/17/2020 1 1 Service Requested Reason for Visit Diagnostic Test (Routine) - Closed Specialty Diagnoses / Procedures Referred By Contact Refer red To Contact Radiology Diagnoses Tonsil cancer Dysphagia, unspecified type Timothy David MD [facility] Rad Nuclear Med Procedures NM PET CT Standard Plus Head and Neck [facility] [place] [address] [place] [address] Referral ID Status Reason Start Date Expiration Date Visits V isits Requested Authorized [id number] Closed Specialty 05/21/2020 11/17/2020 1 1 Service Requested Encounter Details Date Type Department Care Team Description 06/02/2020 Hospital Encounter Nuclear Medicine at [facility] Tonsil cancer; Shena Weinstein MD Dysphagia, unspecified type [facility] [place] OT[place]OLOGY [address] DEPT. [phone] [place] [address] Social History Tobacco Use Types Packs/Day Years [...] 10/04/2021 Office Visit Dermatology Tg Velasco MD [facility] [address] [place] [place], [place] [address] (Wo rk) documented as of this encounter Procedures Procedure Name Priority Date/Time Associated Diagnosis Comme nts NM PET CT STANDARD Routine 06/02/2020 10:17 AM Tonsil ca ncer Results for this PLUS HEAD AND NECK EDT Dysphagia, procedure are in unspecified type the results section. documented in this encounter Results NM PET CT Standard Plus Head and Neck (06/02/2020 10:17 AM EDT) Anatomical Region Laterality Modality Positron Emission To mography (PET) Specimen (Source) Anatomical Location Collection Method / Collectio n Time Received Time / Laterality Volume Impressions 06/02/2020 11:47 AM EDT 1. ??FDG avid soft tissue fullness in the region of the left carotid sheath extending to the level of the skull base , increased in apparent size and intensity compared to prior PET/CT of 2019. This is highly suspicious for recurrent metastasis. 2. ??A subcentimeter FDG avid left neck level 2 node, increased in size and intensity compared to prior, suspicious for small active jose eduardo metastasis. 3. ??No definite distant sites of metast asis. 4. ??CT visualized sub-5 mm pulmonary no dule in the posterior right lower lobe which appears slightly more prominent th an on prior CT of 02/2020. This could be due to difference in scanner technique. Attention on follow-up is recommended. Thank you for letting us participate in the care of this patient. ??If you are a health care provider and have any questi ons regarding this report, please contact the number below. ??For our nick ents who have questions regarding this report, please first contact your doctor prior to speaking to our radiologists. ? Electr onically signed by: Nilesh Brewster MD, [facility] ([phone]), at 06/02/2020 11:47 AM Narrative 06/02/2020 11:47 AM EDT EXAMINATION: NM PET CT STANDARD PLUS HEAD AND NECK CLINICAL HISTORY: 45-year-old male statu s post chemoradiation treatment for tonsil cancer who has developed left voc al cord paralysis as well as additional lower left cranial nerve symptoms. ??Katya ssess status of previous FDG active lesion in the left jugular foramen regio n, To rule out persisting tumor TECHNIQUE: Following IV injection of 18- glfisl-5-qfkjoosommlo (FDG) a standard uptake of approximately 60 minutes, a no ncontrast CT scan followed by a PET scan were acquired from the top of head to mi d thighs. The noncontrast CT was used for anatomic localization and photon att enuation correction of the PET scan. Blood glucose level: 101 (mg/dL) FDG dose: 14.9 mCi COMPARISON: PET/CT 11/29/2019, CT chest 02/07/2020 FINDINGS: HEAD/NECK: FDG avid soft tissue fullness in the reg ion of the left carotid sheath extending to the level of the skull base (axial im ages 55 through 69), increased in apparent size and intensity compared to prior PET/CT of 11/29/2019. A subcentimeter FDG avid lymph node in t he left level 2 region (axial image 78), increased in size and intensity compared to prior. Normal activity in all other soft tissue regions. Asymmetrically decr eased activity in the left vocal cord is consistent with left-sided vocal cord pa ralysis. CHEST: A subcentimeter FDG avid left axillary l ymph node (axial image large and 37) is most consistent with benign reactive nod e. Normal activity in all other soft tissue regions. No significant adenopath y. ?? CT visualized sub-5 mm pulmonary nodule in the posterior right lower lobe (axial image 150) which appears slightly more p rominent than on prior CT of 02/2020; this may be due to difference in scanner technique. Small calcified granulomas are again seen in the left upper and low er lobes. ABDOMEN/PELVIS: Normal activity in all soft tissue regio ns. No significant adenopathy. SKELETON/EXTREMITIES: Decreased marrow activity in the cervica l and upper thoracic spine is consistent with postradiation change. Normal marrow activity in the remainder of the axial and visualized proximal appendicular ske leton. Procedure Note Nilesh Brewsetr MD - 06/02/2020Formatti ng of this note might be different from the original. EXAMINATION: NM PET CT STANDARD PLUS HEA D AND NECK CLINICAL HISTORY: 45-year-old male statu s post chemoradiation treatment for tonsil cancer who has developed left voc al cord paralysis as well as additional lower left cranial nerve symptoms. Reass ess status of previous FDG active lesion in the left jugular foramen regio n, To rule out persisting tumor TECHNIQUE: Following IV injection of 18- xriowv-1-xrqlgfeugvua (FDG) a standard uptake of approximately 60 minutes, a no ncontrast CT scan followed by a PET scan were acquired from the top of head to mi d thighs. The noncontrast CT was used for anatomic localization and photon att enuation correction of the PET scan. Blood glucose level: 101 (mg/dL) FDG dose: 14.9 mCi COMPARISON: PET/CT 11/29/2019, CT chest 02/07/2020 FINDINGS: HEAD/NECK: FDG avid soft tissue fullness in the reg ion of the left carotid sheath extending to the level of the skull base (axial im ages 55 through 69), increased in apparent size and intensity compared to prior PET/CT of 11/29/2019. A subcentimeter FDG avid lymph node in t he left level 2 region (axial image 78), increased in size and intensity compared to prior. Normal activity in all other soft tissue regions. Asymmetrically decr eased activity in the left vocal cord is consistent with left-sided vocal cord pa ralysis. CHEST: A subcentimeter FDG avid left axillary l ymph node (axial image large and 37) is most consistent with benign reactive nod e. Normal activity in all other soft tissue regions. No significant adenopath y. CT visualized sub-5 mm pulmonary nodule in the posterior right lower lobe (axial image 150) which appears slightly more p rominent than on prior CT of 02/2020; this may be due to difference in scanner technique. Small calcified granulomas are again seen in the left upper and low er lobes. ABDOMEN/PELVIS: Normal activity in all soft tissue regio ns. No significant adenopathy. SKELETON/EXTREMITIES: Decreased marrow activity in the cervica l and upper thoracic spine is consistent with postradiation change. Normal marrow activity in the remainder of the axial and visualized proximal appendicular ske leton. IMPRESSION 1. FDG avid soft tissue fullness in the region of the left carotid sheath extending to the level of the skull base , increased in apparent size and intensity compared to prior PET/CT of 2019. This is highly suspicious for recurrent metastasis. 2. A subcentimeter FDG avid left neck le erich 2 node, increased in size and intensity compared to prior, suspicious for small active jose eduardo metastasis. 3. No definite distant sites of metastas is. 4. CT visualized sub-5 mm pulmonary nodu le in the posterior right lower lobe which appears slightly more prominent th an on prior CT of 02/2020. This could be due to difference in scanner technique. Attention on follow-up is recommended. Thank you for letting us participate in the care of this patient. If you are a health care provider and have any questi ons regarding this report, please contact the number below. For our patien ts who have questions regarding this report, please first contact your doctor prior to speaking to our radiologists. Electronically signed by: Nilesh Brewster MD, [facility] ([phone]), at 06/02/2020 11:47 AM Timothy David MD IMG PET ORDERABLES documented in this encounter Visit Diagnoses Diagnosis Tonsil cancer Malignant neoplasm of tonsil Dysphagia, unspecified type documented in this encounter Administered Medications Inactive Administered Medications - up to 3 most recent administrations Medication Order MAR Action Action Date Dose Rate Site fludeoxyglucose (F-18) FDG Given 06/02/2020 8:52 AM 14.9 mCi Right Arm injection 0-20 mCi EDT 0-20 mCi, Intravenous, ONCE PRN, 1 dose, Starting on Mon06/02/20 at 0924, Until Mon06/02/20 at 0852, Per Protocol, Radiology Contrast, Routine documented in this encounter Care Teams Cook Seafood Relationship Specialty Start Date End Date Gregg Garcia MD PCP - General General Internal Medicine 09/24/18 [address] [place] [address] documented as of this encounter
--- OUTSIDE RECORDS SUMMARY | 2021-09-13 17:55 | XMS_ITS | Encounter Summary ---
:1975 Author Organization [facility] [place] [address] Care Team Providers Name Role Phone Gregg Garcia MD Primary Care Provider Encounter Details Date Type Department Care Team Description 06/03/2020 TH Visit Gastroenterology at [facility] Sieglinger, Eosinophilic esophagitis; (TeleHealth) [facility] Latia Shannon APRN Dysphagia, [place] [address] [facility] [phone] Center [place] [address] Social History Tobacco Use Types Packs/Day Years [...] Patient Instructions Patient InstructionsSiMia barton APRN - 06/03/2020 2:00 PM EDT 1. Continue pantoprazole 20 mg twice daily 3060 minutes prior to eating morning and evening meal 2. Upper endoscopy. If you do not hear from schedulers by Monday, please send me a [employer] message 3. Warm fluids before and with meals. Peppermint tea can be especially helpful, so can lozenges and candies. 4. Follow-up with me approximately 2 to 3 weeks Functional Bowel Disorders: Information Handout for Patients and Primary Care Providers Juan Salmon MD, [facility] + Aj Cole MD, LESLISilva Peterson APRN + Sergey Pinzon APRN [facility] Gastrointestinal Motility Center What are functional bowel disorders? ?? These are the most common type of gastrointestinal disorders in the [facility] ?? The most common functional bowel disorder [...] is the impact? ?? 15-20% of general [place] population has IBS or FD or both ?? 2nd most common cause for lost work days (after common cold) in [place] ?? Estimated $30 billion dollar cost to [place] economy per year ?? These disorders can [...] with immediate onset of symptoms after infection); middle or intermediate school principal symptoms are expected in most patients however [...] to you primary care provider and/or local industrial real estate agent and share this document. Treatment of functional [...] this approach benefits most patients ?? OTC (dfyp-obt-xywfwad) medications can be used for ongoing bothersome symptoms as listed below ?? Your provider (PCP or [facility] Gastroenterology provider or - Gastroenterology provider) may decide to use prescription [...] All-Bran psyllium buds, Metamucil, Konsyl, bulk psyllium ([employer] foodstores and bulk stores) ?? Specifically we [...] but convincingmedical evidence is still lacking ?? Fgwi-wok-vrccmxr supplements including probiotics are not typically evaluated [...] to decrease antibiotic-associated diarrhea and antibiotic-related infections Hcth-rgn-Dzinjks Medications for Functional Gut Disorders Based on [...] a stool softener that is safe for middle or intermediate school principal usage (no risk of dependency) and the [...] ?? Often a combination of anti-nausea medications (adwt-chf-onteuqi or prescription) works better than high doses [...] for misuse/misinterpretation of this information Patient Resources [place] [employer] https://www.gastro.org/practice-guidance/us-fwtwayq-owxgyf/t opic/dcnceowoc-wyujb-rwoeykrr-ibs Badgut.org https://badgut.org/information-centre/s-x-fqzmbeody-topics/ibs/ AboutIBS.org https://www.aboutibs.org/ [employer]todate[employer] https://www.oort Incdate.[employer]/contents/pqarhtllt-czuum-jeubayde-elnxhd-vil-lxippg documented in this encounter Progress Notes Mia Peterson APRN - 06/03/2020 2:00 PM EDT [facility] TELEMEDICINE PROGRAM Chief Complaint: Delvin Rosario is a 45 y.o. patient returning today in follow up for eosinophilic esophagitis Detailed History: 45 y.o. male with neck [...] impedance pH, and stopping NSAIDs. During his last appointment on 04/28/2020, he endorsed worsening dysphagia over the past month. He endorsed posttussive vomiting. He had stopped taking NSAIDs. Recommendations included pantoprazole twice daily, and EGD for surveillance. Interval History: Has been taking pantoprazole twice daily. Taking appropriately. No changes. Deniescurrent NSAID use. Has been forcing solid food bolus through esophagus with large volumes of water. Associated coughing. Maintaining weight. Review of systems: 14-point review of systems reviewed and negative except as above. Medications: Outpatient Medications Prior to Visit Medication Sig Dispense Refill ??? pantoprazole EC (Protonix) 20 mg Tablet, Delayed Release (E.C.) Take 1 tablet by mouth 2 times daily. 180 tablet 3 ??? methylPREDNISolone (Medrol, Riley,) 4 mg Tablets, Dose Pack Use as directed on product package. (Patient not taking: Reported on 05/19/2020) 21 tablet 0 ??? cholecalciferol, Vitamin D3, 1,000 unit Tablet Take 1,000 Units by mouth daily. ??? atorvastatin (LIPITOR) 40 mg Tablet 0 ??? multivitamin (THERAGRAN) Tablet Take 1 tablet by mouth daily. ??? ubidecarenone (COENZYME Q10) 100 mg Tablet Take by mouth daily. No facility-administered medications prior to visit. Allergies: is allergic to magnesium salicylate. Past Medical History: has a past medical history of High cholesterol. Past Surgical History: has a past surgical history that includes Laryngoscopy, Dirct, Op Scope, Biopsy (60591) (Bilateral, 12/10/2018); Biopsy Oropharynx (65684) (Bilateral, 12/10/2018); Nasal Endoscopy,Dx (47498) (Bilateral, 12/10/2018); Upper GI Endoscopy, Diagnostic (16677) (N/A, 04/06/2020); Upper Gi E ndoscopy, Biopsy (27239) (N/A, 04/22/2020); and Dilate Esophagus, Over Guide (05910) (N/A, 04/22/2020). Family History: family history includes Esophageal Cancer [...] 4. Mod barium swallow 02/02/30 done at [facility]; no evidence of aspiration 5. Esophagram 04/02/2020; transient hold-up of barium tablet and hypopharynx and at the level of the aortic arch. 6. EGD 04/06/2020; benign-appearing esophageal stenosis. Nonobstructing Schatzki ring. Normal stomach.Normal duodenum. 7. EGD 04/22/2020; non-obstructing schatzki ring. Dilated to 19mm. Normal stomach. Normal duodenum. Bx: Up to 18 eosinophils per hpf. Assessment/Plan: Mr. Rosario is a 45 y.o. patient with eosinophilic esophagitis. #Eosinophilic esophagitis; EGD 04/22/2020 consistent with eosinophilic esophagitis. A nonobstructing Schatzki ring was found. This was dilatated. His swallowing has become more bothersome since his lastappointment. Since our last appointment, he has been taking pantoprazole 20 mg twice daily. He has been taking medication appropriately. He notes no change or improvement since this change. He has not yet had the EGD done. The next step is to repeat the EGD for surveillance to determine if the eosinophils have been driven out of tissue. #Dysphagia; given his history of radiation, there may be another motility disorder contributing to his symptoms. I have previously ordered a combined esophageal manometry and impedance pH off medications. Recommendations: -Continue Pantoprazole 20 mg twice daily 30 to 60 minutes prior to eating morning and evening meal -EGD with IV sedation approximately 6 to 8 weeks after starting pantoprazole -Warm fluids before and with meals. Peppermint tea can be especially helpful -If eosinophils are still present at the time of the EGD, we will discuss the utility of budesonide slurry versus fluticasone swallowed for more immediate relief of symptoms versus dietary elimination -If no eosinophils are present at the time of the EGD, I will expedite motility testing -Follow-up with me approximately 2 to 3 weeks after upper endoscopy Mia Peterson APRN [facility] [place] [address] documented in this encounter Plan of Treatment Upcoming Encounters Date Type Specialty Care Team Description 10/04/2021 Office Visit Dermatology Tg Velasco MD [facility] ER DR [address] [place], [place] [address] (Wo rk) documented as of this encounter Visit Diagnoses Diagnosis Eosinophilic esophagitis Dysphagia, unspecified type documented in this encounter Care Teams Student Education Specialist Relationship Specialty Start Date End Date Gregg Garcia MD PCP - General General Internal Medicine 09/24/18 [address] [place] [address] documented as of this encounter
--- OUTSIDE RECORDS SUMMARY | 2021-09-13 17:55 | XMS_ITS | Encounter Summary ---
:1975 Author Organization [facility] [place] [address] Care Team Providers Name Role Phone Gregg Garcia MD Primary Care Provider Encounter Details Date Type Department Care Team Description 07/22/2020 Orders Only Radiation Oncology a t [facility] Mihir Vences MD Tonsil cancer [facility] [address] RADIATION ONCOLOGY [phone] [place], [place] [address] (Wo rk) Social History Tobacco [...] [facility] [address] [place] [place], [place] [address] (Wo rk) documented as of this encounter Visit Diagnoses Diagnosis Tonsil cancer Malignant neoplasm of tonsil documented in this encounter Care Teams Draw Off Worker Relationship Specialty Start Date End Date Gregg Garcia MD PCP - General General Internal Medicine 09/24/[address] [place] [address] documented as of this encounter
--- OUTSIDE RECORDS SUMMARY | 2021-09-13 17:55 | XMS_ITS | Encounter Summary ---
:1975 Author Organization [place] [address] Care Team Providers Name Role Phone Gregg Garcia MD Primary Care Provider Encounter Details Date Type Department Care Team Description 06/10/2020 Surgery Gastroenterology at [facility] Nehemiah Zaman, [facility] Latia quiros MD [address]) [place] [address] [facility] [phone] [place], [place] [address] Social History Tobacco Use Types [...] Sign Reading Time Taken Comments Blood Pressure 123/75 06/10/2020 3:50 PM EDT Pulse 70 06/10/2020 3:50 PM EDT Temperature 36.6 ??C (97.9 ??F) 06/10/2020 3:50 PM EDT Respiratory Rate 18 06/10/2020 3:50 PM EDT Oxygen Saturation 99% 06/10/2020 3:50 PM EDT Inhaled Oxygen Concentration - - Weight - - Height - - Body Mass Index - - documented in this encounter Discharge Instructions Discharge InstructionsDeanna Canela RN - 06/10/2020 5:56 PM EDT Upper GI Endoscopy: What to Expect at Home Your Recovery You will be able to go home after your doctor or nurse checks to make sure you are not having any problems. You may have to stay overnight if you had treatment during the test. You may have a sore throat for a day or two after the test. This care sheet gives you a general idea about what to expect after the test. How can you care for yourself at home? Activity Rest when you feel tired. ?? You can do your normal activities when it feels okay to do so. Diet ?? Follow your doctor's directions for eating. ?? Unless your doctor has told you not to, drink plenty of fluids. This helps to replace the fluidsthat were lost during the prep. ?? Do not drink alcohol. Medicines ?? Your doctor will tell you if and when you can restart your medicines. He or she will also give you instructions about taking any new medicines. ?? If you take blood thinners, such as warfarin (Coumadin), clopidogrel (Plavix), or aspirin, be sure to talk to your doctor. He or she will tell you if and when to start taking those medicines again.Make sure that you understand exactly what your doctor wants you to do. ?? If polyps were removed or a biopsy was done during the test, your doctor may tell you not to take aspirin or other anti-inflammatory medicines for a few days. These include ibuprofen (Advil, Motrin) and naproxen (Aleve). ?? If you have a sore throat the day after the procedure, use an yljs-dgi-lqykezy spray to numb yourthroat. Sucking on throat lozenges and gargling with warm salt water may also help relieve your symptoms. Other instructions ?? For your safety, do not drive or operate machinery until the medicine wears off and you can think clearly. Your doctor may tell you not to drive or operate machinery until the day after your test. ?? Do not sign legal documents or make major decisions until the medicine wears off and you can think clearly. The anesthesia can make it hard for you to fully understand what you are agreeing to. Additional Information for Sedation Patients For patients who received sedation: ?? You may have received medications before and/or during your procedure which effects your judgement and reaction time. ?? Do not drive, operate machinery, drink alcoholic beverages or make important decisions for 24 hours. ?? Be careful on stairs as you may be unsteady on your feet. ?? You may eat a regular diet as tolerated. ?? Do not smoke if you are alone. ?? IV site: Slight redness or tenderness is normal, you can use a warm compress if you would like. If tenderness and/or redness increase or if foul drainage occurs, please contact your Doctor. Please call [phone] before 8pm Mon-Fri with problems, questions or concerns. If you call after 8pm or on weekends, call the Hospital at [phone] and ask to speak to the Order Detailer monorail helper and the live source operator will contact that person for you. When should you call for help? Call 911 anytime you think you may need emergency care. For example, call if: ?? You passed out (lost consciousness). ?? You pass maroon or bloody stools. ?? You have trouble breathing. Call your doctor now or seek immediate medical care if: ?? You have pain that does not get better after you take pain medicine. ?? You are sick to your stomach or cannot drink fluids. ?? You have new or worse belly pain. ?? You have blood in your stools. ?? You have a fever. ?? You cannot pass stools or gas. Watch closely for changes in your health, and be sure to contact your doctor if you have any problems. Where can you learn more? [facility] View your After Visit Summary and more online at [email or web address] If you would like to provide feedback about your hospital experience, please call the Office of Patient and Family Relations at . If you have received this After Visit Summary in error, please immediately return it in person to the department, or notify the [facility] Privacy Office by calling toll free at between the hours of 8AM and 5PM to arrange for our retrieval of the documents at no cost to you. Content Version: 12.2 ?? [id number] [facility]. Care instructions adapted under license by [facility]. If you have questions about a medical condition or this instruction, always ask your healthcare professional. [email or web address] disclaims any warranty or liability for your use of this information. documented in this encounter Medications at Time of Discharge [...] Tablet daily. documented as of this encounter H&P Notes Nehemiah Zaman MD - 06/10/2020 5:00 PM EDT Procedure: egd Indication: follow up esophageal eos History of Present Illness: Delvin Rosario is a 45 y.o. 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 Neck mass R22.1 ??? 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 Drug-induced nausea and vomiting R11.2, T50.905A ??? Dysphagia, oropharyngeal phase R13.12 ??? Trismus R25.2 ??? Vocal cord paralysis J38.00 ??? Dysphagia R13.10 ??? Eosinophilic esophagitis K20.0 ??? Chronic cough R05 Medications: Reviewed in EDH Allergies Allergen Reactions ??? Magnesium Salicylate Rash Social History/Family History: Reviewed in EDH. No changes Exam: Patient Vitals for the past 24 hrs: Temp Pulse Resp BP SpO2 O2 Device 06/10/20 1550 36.6 ??C (97.9 ??F) 70 18 123/75 99 % RA Axox3, nad Anicteric, MMM CTAB RRR, no m/r/g abd soft nt nd +bs Assessment and Plan: Proceed with EGD: ASA Grade: ASA 1 - Normal health patient Mallampati score:II (soft palate, uvula, fauces visible) Sedation plan: Moderate Conscious sedation Risks and benefits of the procedure were discussed with the patient. Consent has been signed. Nehemiah Zaman MD documented in this encounter Miscellaneous Notes Op Note - Nehemiah Zaman MD - 06/10/2020 5:26 PM EDT [facility] Operative Note Patient Name: Delvin Rosario : [id number] MR#: [id number] Case Date: 06/10/2020 Surgeon: Surgeon(s) and Role: * Nehemiah Zaman MD - Primary Preoperative diagnosis: EoE surveillance Postoperative diagnosis: * No post-op diagnosis entered * Procedure(s): EGD WITH BIOPSY (WRVU 2.49) Please see Provation report for details. documented in this encounter Plan of Treatment Upcoming Encounters Date Type Specialty Care Team Description 10/04/2021 Office Visit Dermatology Tg Velasco MD [facility] [address] [place], [place] [address] (Wo rk) documented as of this encounter Procedures Procedure Name Priority Date/Time Associated Diagnosis Comme nts SURGICAL PATHOLOGY Routine 06/10/2020 5:32 PM Res ults for this REPORT EDT procedure are i n the results section. SPECIMEN TO Routine 06/10/2020 5:32 PM Results f or this PATHOLOGY EDT procedure are i n the results section. SPECIMEN TO Routine 06/10/2020 5:32 PM Results f or this PATHOLOGY EDT procedure are i n the results section. EGD WITH BIOPSY 06/10/2020 5:16 PM Eosinophilic (WRVU 2.49) EDT esophagitis Dysphagia, unspecified type UPPER GI ENDOSCOPY Routine 06/10/2020 3:53 PM Res ults for this EDT procedure are i n the results section. documented in this encounter Results Surgical Pathology Report (06/10/2020 5:32 PM EDT) Component Value Ref Test Analysis Performed At [facility] Range Method Time Signature Surgical [id number] ? Location: 4T; [facility]; [facility] Report The signing pathologist has (i) examined the relevant preparation(s) for the MEMORIAL specimen(s) and (ii) rendered or confirmed the diagnosis(es) . HOSPITAL LABORATORY . ?Surgic al Pathology DIAGNOSIS A - Distal esophagus, ?? biopsy: - ??Squamous mucosa negative for diagnostic abnormality. - ??Squamocolumnar junctiona l mucosa (cardia type) with mild chronic inflammation. There is no evidence of intestinal metaplasia. B - Mid esophagus, ??biopsy: - ??Squamous mucosa negative for diagnostic abnormality. Electronically signed by: ?Silvano Mason MD Verified: ??06/16/2020 16:04 ??Pathologist Performed at: ??-[facility] Dept. of Pathology, [place], [place] SPECIMEN(S) SUBMITTED A - distal esophagus bx's, biopsy (Multiple) B - mid esophagus bx's, biopsy (Multiple) CLINICAL INFORMATION 45-year-old with EOE SPECIMEN PROCESSING A - Labeled/Fixative: Distal esophagus, formalin. Quantity/Size: Four, average 0.5 cm. Tissue Description: Soft, pink-red tissues. Sections/Processing: Submitted en toto ??in 1 cassette labeled A1. B - Labeled/Fixative: Mid esophagus, formalin. Quantity/Size: Three, 0.6 cm. Tissue Description: Soft, pink-red tissues. Sections/Processing: Submitted en toto ??in 1 cassette labeled B1. ??MLL Specimen (Source) Anatomical Collection Method Collection Time Re ceived Time Location / / Volume Laterality 06/10/2020 5:32 PM EDT Nehemiah Zaman MD PATHOLOGY/CYTOLOGY ORDERABLE S Performing Organization Address City/[facility]/[place]IP [place] [address] Specimen to Pathology (06/10/2020 5:32 PM EDT) Specimen Anatomical Collection Method Collection Time Receive d Time (Source) Location / / Volume Laterality AP Specimen 06/10/2020 5:32 PM 5:32 EDT PM EDT Narrative [facility] OR - 06/10/2020 5:32 PM EDT Specimen requisition ordered. ??Separate Pathology report to follow Nehemiah Zaman MD PATHOLOGY/CYTOLOGY ORDERABLE S Performing Organization Address City/[facility]/[place] [address] Specimen to Pathology (06/10/2020 5:32 PM EDT) Specimen Anatomical Collection Method Collection Time Receive d Time (Source) Location / / Volume Laterality AP Specimen 06/10/2020 5:32 PM 1 5:32 EDT PM EDT Narrative [facility] OR - 06/10/2020 5:32 PM EDT Specimen requisition ordered. ??Separate Pathology report to follow Nehemiah Zaman MD PATHOLOGY/CYTOLOGY ORDERABLE S Performing Organization Address City/[facility]/[place]IP [place] [address] UPPER GI ENDOSCOPY (06/10/2020 3:53 PM EDT) Component Value Ref Test Analysis Performed At [facility] Range Method Time Signature UPPER GI [facility] ENDOSCOPY Endoscopy Procedure Date: 06/10/2020 3:53 PM ? Patient Name: Delvin Rosario ? Date of : 1975 ? Age: 45 ? Order #: [id number] ? Instrument Name: [id number] ? Procedure: ? Upper GI endoscopy Indications: ? Dysphagia Providers: ? Nehemiah Zaman, Juan Diana , ? Wendy IBARRA Referring : ?Gregg Alfaraz Medicines: ? Midazolam 5 mg IV, Fentanyl 175 ? micrograms IV Complications: ? No immediate complications. Procedure: ? Pre-Anesthesia Assessment: ? - Prior to the procedure, a H istory ? and Physical was performed, a nd ? patient medications and aller gies ? were reviewed. The patient is ? competent. The risks and bene fits of ? the procedure and the sedatio n ? options and risks were discus sed with ? the patient. All questions we re ? answered and informed consent was ? obtained. Patient identificat ion and ? proposed procedure were verif ied by ? the physician in the pre-proc edure ? area. Mental Status Examinati on: ? alert and oriented. Airway ? Examination: normal oropharyn geal ? airway and neck mobility. Res piratory ? Examination: clear to auscult ation. ? CV Examination: normal. Proph ylactic ? Antibiotics: The patient does not ? require prophylactic antibiot ics. ? Prior Anticoagulants: The pat ient has ? taken no previous anticoagula nt or ? antiplatelet agents. ASA Grad e ? Assessment: I - A normal, hea lthy ? patient. After reviewing the risks ? and benefits, the patient was deemed ? in satisfactory condition to undergo ? the procedure. The anesthesia plan ? was to use moderate sedation / ? analgesia (conscious sedation ). ? Immediately prior to administ ration ? of medications, the patient w as ? re-assessed for adequacy to r eceive ? sedatives. The heart rate, ? respiratory rate, oxygen satu rations, ? blood pressure, adequacy of p ulmonary ? ventilation, and response to care ? were monitored throughout the ? procedure. The physical statu s of the ? patient was re-assessed after the ? procedure. ? The procedure, indications, b enefits, ? risks and alternatives were e xplained ? to the patient. Specifically ? discussed were potential ? complications including, but not ? limited to, bleeding, perfora tion, ? infection, missing a cancer, and ? adverse medication reactions. The ? Endoscope was introduced thro ugh the ? mouth, and advanced to the se cond ? part of duodenum. The patient ? tolerated the procedure well. The ? patient tolerated the procedu re well. ? Findings: ? Esophagogastric landmarks were identified: the ? gastroesophageal junction was found at 40 cm and the ? lower esophageal sphincter was found at 40 cm from ? the incisors. ? The examined esophagus was normal. Several biopsies ? were obtained with cold forceps for histology in the ? mid esophagus and in the distal esophagus. ? The entire examined stomach was normal. ? The examined duodenum was normal. ? Moderate Sedation: ? Moderate (conscious) sedation was administered by the ? endoscopy nurse and supervised by the endoscopist. ? The following parameters were monitored: oxygen ? saturation, heart rate, blood pressure, and response ? to care. Impression: ?- Esophagogastric landmarks ? identified. ? - Normal esophagus. ? - Normal stomach. ? - Normal examined duodenum. ? - Several biopsies were obtai heber in ? the mid esophagus and in the distal ? esophagus. Recommendation: ?- Discharge patient to home. ? - Resume previous diet. ? - Await pathology results. ? - Return to referring physici an. ? Attending Participation: ? I personally performed the entire procedure. ? Nehemiah Zaman, 06/10/2020 5:32:51 PM Number of Addenda: 0 Note Initiated On: 06/10/2020 3:53 PM Specimen (Source) Anatomical Collection Method Collection Time Re ceived Time Location / / Volume Laterality 06/10/2020 3:53 PM EDT Gregg Garcia MD GENERAL SURGICAL ORDERABLES Performing Organization Address City/State/ZIP Code Phon e Number [facility] documented in this encounter Visit Diagnoses Diagnosis Eosinophilic esophagitis Dysphagia Dysphagia, unspecified Eosinophilic esophagitis Dysphagia, unspecified type documented in this encounter Admitting Diagnoses Diagnosis Dysphagia Dysphagia, unspecified Eosinophilic esophagitis documented in this encounter Administered Medications Inactive Administered Medications - up to 3 most recent administrations Medication Order MAR Action Action Date Dose Rate Site fentaNYL (pf) (50 mcg/mL) Given 06/10/2020 5:30 PM EDT 25 mcg Right Arm multi-dose injection ONCE PRN, Starting on Mon06/10/20 at 1720, Until Mon06/10/20 at 2012, Intra-Operative (Intra-Procedure), Routine Given 06/10/2020 5:27 PM EDT 50 mcg Right Arm Given 06/10/2020 5:24 PM EDT 50 mcg Right Arm lactated ringers infusion New Bag 06/10/2020 3:56 PM EDT 100 mL/hr 100 mL/hr 100 mL/hr, Intravenous, CONTINUOUS, Starting on Mon06/10/20 at 1615, Until Mon06/10/20 at 1756, Endoscopy (Day of Procedure) midazolam (pf) (Versed) (1 mg/mL) Given 06/10/2020 5:30 PM EDT 1 mg Right Arm multi-dose injection ONCE PRN, Starting on Mon06/10/20 at 1720, Until Mon06/10/20 at 2011, Intra-Operative (Intra-Procedure), Routine Given 06/10/2020 5:27 PM EDT 1 mg Right Arm Given 06/10/2020 5:24 PM EDT 1 mg Right Arm documented in this encounter Active and Recently Administered Medications Times are shown in EDT. Continuous Medication Order 06/08/2020 06/09/2020 06/10/2020 lactated ringers infusion (CANCELED) 1556 (New Bag - Provider: Silverio Salomon RN) 100 mL/hr, at 100 mL/hr, Intravenous, CO NTINUOUS, Starting Mon06/10/20 at 1615, Until Mon06/10/20 at 1756, Endo (Day of Procedure) PRN Medication Order 06/08/2020 06/09/2020 06/10/2020 fentaNYL (pf) (50 mcg/mL) multi-dose injection (CANCELED) 1720 (Given - Provider: Juan Bojorquez RN)1724 (Given - Provider: Juan Bojorquez RN)1727 (Given - Provider: Juan Bojorquez RN)1730 (Given - Provider: Juan Bojorquez RN) ONCE PRN, Starting Mon06/10/20 at 1720, U ntil Mon06/10/20 at 2011, Intra-Operative (Intra-Procedure), Routine midazolam (pf) (Versed) (1 mg/mL) multi-dose injection (CANCELED ) 1720 (Given - Provider: Juan Bojorquez RN)1721 (Given - Provider: Juan Bojorquez RN)1724 (Given - Provider: Juan Bojorquez RN)1727 (Given - Provider: Juan Bojorquez, RN)1730 (Given - Provider: Juan Bojorquez RN) ONCE PRN, Starting Mon06/10/20 at 1720, U ntil Mon06/10/20 at 2012, Intra-Operative (Intra-Procedure), Routine documented in this encounter Care Teams Development Technical Lead Relationship Specialty Start Date End Date Gregg Garcia MD PCP - General General Internal Medicine 09/24/18 [address] [place] [address] documented as of this encounter
--- OUTSIDE RECORDS SUMMARY | 2021-09-13 17:55 | XMS_ITS | Encounter Summary ---
:1975 Author Organization [facility] [place] [address] Care Team Providers Name Role Phone Gregg Garcia MD Primary Care Provider Encounter Details Date Type Department Care Team Description 06/15/2020 Orders Only Radiology at [facility] Julien Cote MD [facility] [place] [address] RADIOLOGY DEPT [phone] [place] [id number] (Wo rk) Social History Tobacco Use Types [...] on file documented as of this encounter H&P Notes Julien Cote MD - 06/15/2020 3:11 PM EDT Images from the original note were not included. INTERVENTIONAL RADIOLOGY FOCUSED H&P and PRE-PROCEDURE NOTE: PCP: Gregg Garcia MD Referring Provider: No ref. provider found Planned Procedure: Ct guided Left infra-temoral skull base mass Procedure Indication: Hypermetabolic mass There are no answered order specific questions. Presenting Diagnosis/ Complaint: Delvin Rosario is a 45 y.o. male with a past medical history of tonsillar cancer s/p chemoradiation who recently underwent surveillance imaging which demonstrated a hypermetabolic mass within the left infra-temporal region. Neuroradiology is consulted for mass biopsy. Past Medical/Surgical History: Patient Active Problem List Diagnosis Code ??? Neck mass R22.1 ??? 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 Drug-induced nausea and vomiting R11.2, T50.905A ??? Dysphagia, oropharyngeal phase R13.12 ??? Trismus R25.2 ??? Vocal cord paralysis J38.00 ??? Dysphagia R13.10 ??? Eosinophilic esophagitis K20.0 ??? Chronic cough R05 Past Medical History: Diagnosis Date ??? High cholesterol Past Surgical History: Procedure Laterality Date ??? PRO BIOPSY OROPHARYNX Bilateral 12/10/2018 BIOPSY, OROPHARYNX (WRVU 1.44) performed by Timothy David MD at [facility] OR ??? PRO DILATE ESOPHAGUS, OVER GUIDE N/A 04/22/2020 ESOPHAGEAL DILATION OVER GUIDE WIRE (WRVU 1.51) performed by Mil Beckwith MD at [facility] ENDOSCOPY ??? PRO LARYNGOSCOPY, DIRCT, OP SCOPE, BIOPSY Bilateral 12/10/2018 LARYNGOSCOPY, MICROSCOPE, WITH BIOPSY (WRVU 3.55) performed by Timothy David MD at [facility] OR ??? PRO NASAL ENDOSCOPY, DX Bilateral 12/10/2018 NASAL ENDOSCOPY DIAGNOSTIC, UNILATERAL OR BILATERAL (WRVU 1.1) performed by Timothy David MD at [facility] OR ??? PRO UPPER GI ENDOSCOPY, BIOPSY N/A 04/22/2020 EGD WITH BIOPSY (WRVU 2.49) performed by Mil eBckwith MD at [facility] ENDOSCOPY ??? PRO UPPER GI ENDOSCOPY, BIOPSY N/A 06/10/2020 EGD WITH BIOPSY (WRVU 2.49) performed by Nehemiah Zaman MD at [facility] ENDOSCOPY ??? PRO UPPER GI ENDOSCOPY, DIAGNOSTIC N/A 04/06/2020 EGD, UPPER GI ENDOSCOPY performed by Juan Carrillo MD at [facility] OR Medications: Current Outpatient Medications on File Prior to [...] mg Tablet Take by mouth daily. No current facility-administered medications on file prior to visit. Allergies: Magnesium salicylate Social History and Habits: Social History Socioeconomic History ??? Marital status: Spouse name: Shena ??? Number of children: 2 ??? Years of education: Not on file ??? Highest education level: Not on file Occupational History ??? 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 Smoking status: Former Smoker Packs/day: 0.50 Years: 3.00 Pack years: 1.50 Types: Cigarettes Quit date: 2000 Years since quittin.2 ??? Smokeless tobacco: Never Used Substance and Sexual Activity ??? Alcohol use: Yes Comment: once or twice a week ??? Drug use: Not Currently ??? Sexual activity: Not on file Comment: deferred Other Topics Concern ??? Not on file Social History Narrative ??? Not on file Social Determinants of Health Financial Resource Strain: ??? Difficulty of Paying Living Expenses: Food Insecurity: ??? Worried About Running Out of Food in the Last Year: ??? Ran Out of Food in the Last Year: Transportation Needs: ??? Lack of Transportation (Medical): ??? Lack of Transportation (Non-Medical): Physical Activity: ??? Days of Exercise per Week: ??? Minutes of Exercise per Session: Stress: ??? Feeling of Stress : Social Connections: ??? Frequency of Communication with Friends and Family: ??? Frequency of Social Gatherings with Friends and Family: ??? Attends Confucianism Services: ??? Active Member of Clubs or Organizations: ??? Attends Club or Organization Meetings: ??? Marital Status: Intimate Partner Violence: ??? Fear of Current or Ex-Partner: ??? Emotionally Abused: ??? Physically Abused: ??? Sexually Abused: Significant Family History: Family History Problem Relation Age of Onset ??? Esophageal Cancer Paternal Uncle ??? Kidney Cancer Half-Brother Pertinent ROS: as per HPI Labs: Lab Results Component Value Date WBC 4.7 06/13/2019 HCT 41.3 06/13/2019 PLATELET 151 06/13/2019 INR 1.0 10/30/2018 BUN 16 06/13/2019 CREATININE 1.11 06/13/2019 ALKPHOS 43 06/13/2019 AST 16 06/13/2019 ALBUMIN 4.4 06/13/2019 BILITOT 0.6 06/13/2019 ALT 27 06/13/2019 PROT 7.2 06/13/2019 K 4.0 06/13/2019 Imaging: Physical Exam: Pending (to be performed in angio the day of procedure) ASA: Pending (to be assessed in angio the day of procedure) Mallampati Class: Pending (to be assessed in angio the day of procedure) Assessment: 45 y.o. male with a past medical history of tonsillar cancer who on recent imaging demonstrated a hypermetabolic left skull base mass. Plan: Retroauricular or transfacial CT guided core mass biopsy with conscious sedation 06/15/2020 documented in this encounter Plan of Treatment Upcoming Encounters Date Type Specialty Care Team Description 10/04/2021 Office Visit Dermatology Tg Velasco MD [facility] [address] [place], [place] [address] (Wo rk) documented as of this encounter Visit Diagnoses Not on filedocumented in this encounter Care Teams Helper/Driver Relationship Specialty Start Date End Date Gregg Garcia MD PCP - General General Internal Medicine 09/24/1812/03/ [address] [place] [address] documented as of this encounter
--- OUTSIDE RECORDS SUMMARY | 2021-09-13 17:55 | XMS_ITS | Encounter Summary ---
:1975 Author Organization [facility] [place] [address] Care Team Providers Name Role Phone Unknown Primary Care Provider Unavailable Encounter Details Date Type Department Care Team Description 01/12/2021 External Results Medical Records Provider, [place] [address] Social History Tobacco Use Types Packs/Day [...] Office Visit Dermatology Tg Velasco MD [facility] ER DR BLANCHE DALAL[address]DERMAT [place], [place] [address] (Wo rk) documented as of this encounter Procedures Procedure Name Priority Date/Time Associated Diagnosis Comme nts SURGICAL PATHOLOGY Routine 01/12/2021 Results f or this SCAN procedure are i n the results section . documented in this encounter Results Scan Doc: Surgical Pathology (01/12/2021) Narrative This result has an attachment that is no t available. Historical Provider MD GONZALES MGR SCAN EXT ORDR/RSLT documented in this encounter Visit Diagnoses Not on filedocumented in this encounter Care Teams Microphone Operator Relationship Specialty Start Date End Date Unknown PCP - General 12/04/20 07/04/21 None documented as of this encounter
--- OUTSIDE RECORDS SUMMARY | 2021-09-13 17:55 | XMS_ITS | Encounter Summary ---
:1975 Author Organization [facility] [place] [address] Care Team Providers Name Role Phone Gregg Garcia MD Primary Care Provider Encounter Details Date Type Department Care Team Description 06/02/2020 Office Visit [address]ology at [facility] Timothy David, Tonsil cancer; [facility] Latia [place] [address] [facility] [phone] OTOLARYNGOLOGY DEPT. [place], [place] [address] (Wo rk) Social History Tobacco [...] Sign Reading Time Taken Comments Blood Pressure - - Pulse - - Temperature - - Respiratory Rate - - Oxygen Saturation - - Inhaled Oxygen Concentration - - Weight 81.6 kg (180 lb) 06/02/2020 1:21 PM EDT Height 188 cm (6' 2) 06/02/2020 1:21 PM EDT Body Mass Index 23.11 06/02/2020 1:21 PM EDT documented in this encounter Progress Notes Timothy David MD - 06/02/2020 1:30 PM EDT Images from the original note were not included. Subjective: Patient ID: Delvin Rosario is a 45 y.o. male. HPI ?? 45 yo M presenting November 2018 with then 1 y hx of left neck mass and dysphagia x 2 months ?? 20 lb unintentional weight loss ?? Former smoker x 3 years, some EtOH, denies IVDA, negative PMHx L superior zone 2 mass extending into zone 3. ?? Left tonsil full, normal R tonsil ?? Normal FNL ?? T2N2 p16+ SCCa. Bulky retropharyngeal nodes ?? Completed chemoradiation Mar 2019. No breaks. Has had more neuro side effects than expected ?? Post treatment PET CT negative Underwent PET CT 08/29/19, reviewed: The previously seen right-sided hypermetabolic cervical lymph node has resolved. There are new hypermetabolic but not enlarged lymph nodes in the left neck at level two. Given recent therapy and the resolution of the node in the right side of the neck, a reactive process in the left neck is favored. TB recommendation was to repeat PET CT November to reassess new left sided nodes. Patient had new study 11.29.19 showing Hypermetabolic lymph nodes in the left neck at level two (image 55, 61, 66 and 73) are again seen. These lymph nodes are slightly more intense than noted in the prior study. Discussion: morphologically not appearing to be larger. 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 A barium swallow test on 04/02/20 showing transient holdup of barium tablet in the hypopharynx and atthe level of the aortic arch; a mild asymmetry of the piriform sinuses on phonation; and a mild pooling of contrast within the vallecular and piriform sinuses. ?? New issues since last visit: Voice change stable, feels breathy. Seeing speech therapy on regular basis but not sure helpful anymore. Complains that many foods either are choked or held up in the back of his throat despite taking sips of fluids. He has also to be careful wit liquids ortherwise aspirates. No hx of pneumonia, denies fever/chillssweats. Has occasional pain in the back of the left neck raidating to occiput. Grade 3/10, sporadic. No worsening radiculopathy on upper extremity. Feels voice has nasal quality. Denies suetachian tube symptoms. denies neck mass, no fever/chills. Underwent new neck CT to reassess skull base status after his last visit which showed the following: Asymmetric fatty infiltration of the left hemitongue [...] destructive changes identified at the skull base As a result, we decided to have the patient undergo the PET/CT to assess FDG activity this area. He continues to complain of an achy sensation in the left upper neck and mastoid region Past Medical History: Diagnosis Date ??? High cholesterol Past Surgical History: Procedure Laterality Date ??? PRO BIOPSY OROPHARYNX Bilateral 12/10/2018 BIOPSY, OROPHARYNX (WRVU 1.44) performed by Timothy David MD at [facility] MAIN OR ??? PRO DILATE ESOPHAGUS, OVER GUIDE N/A 04/22/2020 ESOPHAGEAL DILATION OVER GUIDE WIRE (WRVU 1.51) performed by Mil Beckwith MD at [facility] ENDOSCOPY ??? PRO LARYNGOSCOPY, DIRCT, OP SCOPE, BIOPSY Bilateral 12/10/2018 LARYNGOSCOPY, MICROSCOPE, WITH BIOPSY (WRVU 3.55) performed by Timothy David MD at [facility] MAIN OR ??? PRO NASAL ENDOSCOPY, DX Bilateral 12/10/2018 NASAL ENDOSCOPY DIAGNOSTIC, UNILATERAL OR BILATERAL (WRVU 1.1) performed by Timothy David MD at [facility] MAIN OR ??? PRO UPPER GI ENDOSCOPY, BIOPSY N/A 04/22/2020 EGD WITH BIOPSY (WRVU 2.49) performed by Mil Beckwith MD at [facility] ENDOSCOPY ??? PRO UPPER GI ENDOSCOPY, DIAGNOSTIC N/A 04/06/2020 EGD, UPPER GI ENDOSCOPY performed by Juan Carrillo MD at [facility] MAIN OR Patient Active Problem List Diagnosis Code ??? Neck mass R22.1 ??? 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 Drug-induced nausea and vomiting R11.2, T50.905A ??? Dysphagia, oropharyngeal phase R13.12 ??? Trismus R25.2 ??? Vocal cord paralysis J38.00 ??? Dysphagia R13.10 ??? Eosinophilic esophagitis K20.0 ??? Chronic cough R05 Current Outpatient Medications: ??? pantoprazole EC (Protonix) 20 mg Tablet, Delayed Release (E.C.), Take 1 tablet by mouth 2 times daily., Disp: 180 tablet, Rfl: 3 ??? cholecalciferol, Vitamin D3, 1,000 unit Tablet, Take 1,000 Units by mouth daily., Disp: , Rfl: ??? atorvastatin (LIPITOR) 40 mg Tablet, , Disp: , Rfl: 0 ??? multivitamin (THERAGRAN) Tablet, Take 1 tablet by mouth daily., Disp: , Rfl: ??? ubidecarenone (COENZYME Q10) 100 mg Tablet, Take by mouth daily., Disp: , Rfl: ??? methylPREDNISolone (Medrol, Riley,) 4 mg Tablets, Dose Pack, Use as directed on product package. (Patient not taking: Reported on 05/19/2020), Disp: 21 tablet, Rfl: 0 Allergies Allergen Reactions ??? Magnesium Salicylate Rash Review of Systems: A comprehensive Review of Systems is completed and except as noted in the HPI is negative for constitutional, neurologic, respiratory, cardiac, vascular, immune, GI, , MSK, endocrine, skin, and functional systems which are reviewed. Family History Problem Relation Age of Onset ??? Esophageal Cancer Paternal Uncle ??? Kidney Cancer Half-Brother There is no pertinent family history of otolaryngology problems. Social History Socioeconomic History ??? Marital status: Spouse name: Shena ??? Number of children: 2 ??? Years of education: Not on file ??? Highest education level: Not on file Occupational History ??? 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 Smoking status: Former Smoker [...] Gatherings with Friends and Family: ??? Attends Yazdanism Services: ??? Active Member of Clubs or Organizations: ??? Attends Club or Organization Meetings: ??? Marital Status: Intimate Partner Violence: ??? Fear of Current or Ex-Partner: ??? Emotionally Abused: ??? Physically Abused: ??? Sexually Abused: Review of Systems Objective: Physical Exam Vitals and nursing note reviewed. Constitutional: General: He is not in acute distress. Appearance: He is well-developed. He is not diaphoretic (breathy hypernasal voice, no stridor, expectorates mucus at times ). HENT: Head: Normocephalic. Jaw: There is normal jaw occlusion. No trismus ( 3.5 cm). Right Ear: Tympanic membrane, ear canal and external ear normal. No tenderness. No middle ear effusion. Left Ear: Tympanic membrane, ear canal and external ear normal. No tenderness. No middle ear effusion. Nose: Septal deviation present. No nasal deformity or mucosal edema. Mouth/Throat: Mouth: No oral lesions (Post radiation therapy. No visible lesion. Both tonsils atrophic. Mucositisof the pharyngeal mucosa. ). Dentition: Normal dentition. No dental tenderness. Tongue: No lesions ( deviation tongue to the left with bulk loss). Palate: No mass ( asymmetric elevation on left). Pharynx: Uvula midline. No oropharyngeal exudate. Eyes: General: No scleral icterus. Conjunctiva/sclera: Conjunctivae normal. Pupils: Pupils are equal, round, and reactive to light. Neck: Thyroid: No thyroid mass or thyromegaly. Vascular: No carotid bruit. Trachea: No tracheal deviation. Pulmonary: Effort: Pulmonary effort is normal. No respiratory distress. Breath sounds: No stridor. Musculoskeletal: Cervical back: Normal range of motion and neck supple. Lymphadenopathy: Cervical: No cervical adenopathy (Post radiation changes to neck with some induration superiorly. No defined neck mass noted, good neck mobility). Skin: General: Skin is warm. Findings: No erythema. Neurological: Mental Status: He is alert and oriented to person, place, and time. Cranial Nerves: No cranial nerve deficit. Deep Tendon Reflexes: Reflexes are normal and symmetric. Psychiatric: Behavior: Behavior normal. Thought Content: Thought content normal. Judgment: Judgment normal. PET CT reviewed with patient: FDG avid soft tissue fullness in the region of the left carotid sheath extending to the level of the skull base (axial images 55 through 69), increased in apparent size and intensity compared to prior PET/CT of 11/29/2019. A subcentimeter FDG avid lymph node in the left level 2 region (axial image 78), increased in size and intensity compared to prior. Normal activity in all other soft tissue regions. Asymmetrically decreased activity in the left vocal cord is consistent with left-sided vocal cord paralysis. ?? Assessment and Plan: ASSESSMENT/PLAN: Based on today's PET/CT findings, are certainly concerning. 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 I will review the films and present the case at our head and neck tumor board for an opinion. Planning a biopsy and that site will be somewhat challenging if we need to confirm whether this dheeraj malignancy. documented in this encounter Plan of Treatment Upcoming Encounters Date Type Specialty Care Team Description 10/04/2021 Office Visit Dermatology Tg Velasco MD [facility] ER DR BLANCHE DALAL-DERMAT [place], [place] [address] (Wo rk) documented as of this encounter Visit Diagnoses Diagnosis Tonsil cancer Malignant neoplasm of tonsil Tongue atrophy Other specified conditions of the tongue documented in this encounter Care Teams Assistant Activities Director Relationship Specialty Start Date End Date Gregg Garcia MD PCP - General General Internal Medicine 09/24/18 [address] [place] [address] documented as of this encounter
--- OUTSIDE RECORDS SUMMARY | 2021-09-13 17:55 | XMS_ITS | Encounter Summary ---
:1975 Author Organization [facility] [place] [address] Care Team Providers Name Role Phone Gregg Garcia MD Primary Care Provider Encounter Details Date Type Department Care Team Description 07/16/2020 External Results Neurology at [facility] Miguelina Shannon, [facility] [place] [address] [facility] [phone] NEUROLOGY DEPT [place], [place] [address] (Wo rk) Social History Tobacco [...] 10/04/2021 Office Visit Dermatology Tg Velasco MD [facility] ER DR BLANCHE DALAL[address]DERMAT [place], [place] [address] (Wo rk) documented as of this encounter Procedures Procedure Name Priority Date/Time Associated Diagnosis Comme nts EMG SCAN Routine 07/13/2020 documented in this encounter Results Scan Doc: EMG (07/13/2020) Narrative This result has an attachment that is no t available. Miguelina Shannon MD MEDIA MGR SCAN EXT ORDR/RSLT documented in this encounter Visit Diagnoses Not on filedocumented in this encounter Care Teams Director Digital Strategy Relationship Specialty Start Date End Date Gregg Garcia MD PCP - General General Internal Medicine 09/24/18 [address] [place] [address] documented as of this encounter
--- OUTSIDE RECORDS SUMMARY | 2021-09-13 17:55 | XMS_ITS | Encounter Summary ---
:1975 Author Organization [facility] [place] [address] Care Team Providers Name Role Phone Gregg Garcia MD Primary Care Provider Encounter Details Date Type Department Care Team Description 06/10/2020 Hospital Gastroenterology at [facility] Nehemiah Zaman Eosinophilic Encounter [facility] Latia [place] [address] [facility] [phone] [place] [address] Social History Tobacco Use Types Packs/Day Years [...] Sign Reading Time Taken Comments Blood Pressure 128/77 06/10/2020 6:00 PM EDT Pulse 77 06/10/2020 6:00 PM EDT Temperature 36.6 ??C (97.9 ??F) 06/10/2020 3:50 PM EDT Respiratory Rate 16 06/10/2020 6:00 PM EDT Oxygen Saturation 97% 06/10/2020 6:00 PM EDT Inhaled Oxygen Concentration - - [...] the day after the procedure, use an ljmj-tyw-vcydday spray to numb yourthroat. Sucking on throat [...] occurs, please contact your Doctor. Please call [phone] before 8pm Mon-Fri with problems, questions or concerns. If you call after 8pm or on weekends, call the Hospital at [phone] and ask to speak to the Hot Air Furnace Installer Repairer textile conversion manager and the dielectric machine operator will contact that person for you. When should you call for help? Call [phone] anytime you think you may need emergency [...] any problems. Where can you learn more? [facility] View your After Visit Summary and more online at [email or web address] If you would like to provide feedback about your hospital experience, please call the Office of Patient and Family Relations at . If you have received this After Visit Summary in error, please immediately return it in person to the department, or notify the [facility] Privacy Office by calling toll free at between the hours of 8AM and 5PM to arrange for our retrieval of the documents at no cost to you. Content Version: 12.2 ?? [id number] [employer]. Care instructions adapted under license by [facility]. If you have questions about a medical condition or this instruction, always ask your healthcare professional. [employer] disclaims any warranty or liability for your [...] Zaman MD - 06/10/2020 5:26 PM EDT [facility] Operative Note Patient Name: Delvin Rosario : [id number] MR#: [id number] Case Date: 06/10/2020 Surgeon: Surgeon(s) and Role: * Nehemiah Zaman MD - Primary Preoperative diagnosis: EoE surveillance Postoperative diagnosis: * No post-op diagnosis entered * Procedure(s): EGD WITH BIOPSY (WRVU 2.49) Please see Provation report for details. documented in this encounter Plan of Treatment Upcoming Encounters Date Type Specialty Care Team Description 10/04/2021 Office Visit Dermatology Tg Velasco MD [facility] [address] [place], [place] [address] (Wo rk) documented as of [...] Component Value Ref Test Analysis Performed At [facility] gist Range Method Time Signature Surgical [id number] ? Location: 4T; EA06; A [facility] Pathology CURTIS Report The signing pathologist has (i) examined [...] MD Verified: ??06/16/2020 16:04 ??Pathologist Performed at: ??-[facility] Dept. of Pathology, [place], [place] SPECIMEN(S) SUBMITTED A - distal esophagus [...] MD PATHOLOGY/CYTOLOGY ORDERABLE S Performing Organization Address City/[facility]/[place] [address] Specimen to Pathology (06/10/2020 5:32 PM EDT) Specimen Anatomical Collection Method Collection Time Receive d Time (Source) Location / / Volume Laterality AP Specimen 06/10/2020 5:32 PM 5:32 EDT PM EDT Narrative [facility] OR - 06/10/2020 5:32 PM EDT Specimen requisition ordered. ??Separate Pathology report to follow Nehemiah Zaman MD PATHOLOGY/CYTOLOGY ORDERABLE S Performing Organization Address City/[facility]/[place] [address] Specimen to Pathology (06/10/2020 5:32 PM EDT) Specimen Anatomical Collection Method Collection Time Receive d Time (Source) Location / / Volume Laterality AP Specimen 06/10/2020 5:32 PM 5:32 EDT PM EDT Narrative [facility] OR - 06/10/2020 5:32 PM EDT Specimen requisition ordered. ??Separate Pathology report to follow Nehemiah Zaman MD PATHOLOGY/CYTOLOGY ORDERABLE S Performing Organization Address City/State/[place] [address] UPPER GI ENDOSCOPY (06/10/2020 3:53 PM EDT) Component Value Ref Test Analysis Performed At [facility] Range Method Time Signature UPPER GI [facility] ENDOSCOPY Endoscopy Procedure Date: 06/10/2020 3:53 PM ? Patient Name: Delvin Rosario ? Date of : 1975 ? Age: 45 ? Order #: [id number] ? Instrument Name: [id number] ? Procedure: ? Upper GI endoscopy Indications: ? Dysphagia Providers: ? Nehemiah Zaman, Juan Diana , ? FRED, Wendy Bailon Referring : ?Gregg Alfaraz Medicines: ? Midazolam [...] Diagnoses Diagnosis Eosinophilic esophagitis Dysphagia Dysphagia, unspecified documented in this encounter Admitting Diagnoses Diagnosis Dysphagia Dysphagia, unspecified Eosinophilic esophagitis documented in this encounter Administered Medications Inactive Administered Medications - up to 3 most recent administrations Medication Order MAR Action Action Date Dose Rate Site lactated ringers infusion New Bag 06/10/2020 3:56 PM EDT 100 mL/hr 100 mL/hr 100 mL/hr, Intravenous, CONTINUOUS, Starting on 06/10/20 at 1615, Until Mon06/10/20 at 1756, Endoscopy (Day of Procedure) documented in this encounter Active and Recently Administered Medications Times are shown in EDT. Continuous Medication Order 06/08/2020 06/09/202006/10/2020 lactated ringers infusion (CANCELED) 1556 (New Bag - Provider: Silverio Salomon, FRED) 100 mL/hr, at 100 mL/hr, Intravenous, CO [...] ntil Mon06/10/20 at 2012, Intra-Operative (Intra-Procedure), Routine midazolam (pf) (Versed) (1 mg/mL) multi-dose injection (CANCELED ) 1720 (Given - Provider: Juan Bojorquez RN)1721 (Given - Provider: Juan Bojorquez RN)1724 (Given - Provider: Juan Bojorquez, FRED)1727 (Given - Provider: Juan Bojorquez RN)1730 (Given - Provider: Juan Bojorquez RN) ONCE PRN, Starting Mon06/10/20 at 1720, U ntil Mon06/10/20 at 2012, Intra-Operative (Intra-Procedure), Routine documented in this encounter Care Teams Commercial Correspondent Relationship Specialty Start Date End Date Gregg Garcia MD PCP - General General Internal Medicine 09/24/18 [address] [place] [address] documented as of this encounter
--- OUTSIDE RECORDS SUMMARY | 2021-09-13 17:55 | XMS_ITS | Encounter Summary ---
:1975 Author Organization [facility] [place] [address] Care Team Providers Name Role Phone Gregg Garcia MD Primary Care Provider Encounter Details Date Type Department Care Team Description 06/04/2020 Multidisciplinary Care Otolaryngology at [facility] Kindra David [facility] [place] [address] [place] [address] [place] [address] Social History Tobacco Use Types Packs/Day Years [...] encounter Progress Notes Timothy David MD - 06/04/2020 11:59 PM EDT Head and Neck Tumor Board Note Site/Stage 3 Synopsis with pertinent exam findings ?? 45 yo M presenting November 2018 with then 1 y hx of left neck mass and dysphagia x 2 months ?? 20 lb unintentional weight loss ?? Former smoker x 3 years, some EtOH, denies IVDA, negative PMHx L superior zone 2 mass extending into zone 3. ?? Left tonsil full, normal R tonsil ?? Normal FNL ?? T2N2 p16+ SCCa ?? Completed chemoradiation Mar 2019. No breaks. Has had more neuro side effects than expected ?? Post treatment PET CT negative ?? Recent presentation to OSH with left hemitongue deviation ?? Exam: left tongue deviation, still eating speaking well. FNL negative, no palpable neck mass ?? Recent MRI Underwent PET CT 08/29/19, reviewed: The previously [...] with contrast which was done 12/16/19 at [facility] New onset left vocal cord weakness with hoarseness, tongue deviation, change in speech no aspirationX January 2020 Pathology Imaging New PET CT May showing: FDG avid soft tissue fullness in the [...] is consistent with left-sided vocal cord paralysis. Tumor Board Recommendations This could be a radiation related injury but in view of progression, concern that this is recurrent disease. Will plan CT guided aspiration. Will also discuss with neurosurgery for input ? * (Based on past studies and the information available at the time of presentation) Specific treatment to be undertaken must ultimaly be determined on an individual basis by the patient and those invoved in her/his treatment) ? documented in this encounter Plan of Treatment Upcoming Encounters Date Type Specialty Care Team Description 10/04/2021 Office Visit Dermatology Tg Velasco MD [facility] [address] [place], [place] [address] (Wo rk) documented as of this encounter Visit Diagnoses Not on filedocumented in this encounter Care Teams Coil Connector Repairer Relationship Specialty Start Date End Date Gregg Garcia MD PCP - General General Internal Medicine 09/24/18 [address] [place] [address] documented as of this encounter
--- OUTSIDE RECORDS SUMMARY | 2021-09-13 17:55 | XMS_ITS | Encounter Summary ---
:1975 Author Organization [facility] [place] [address] Care Team Providers Name Role Phone Gregg Garcia MD Primary Care Provider Encounter Details Date Type Department Care Team Description 06/24/[address] [place] [facility] [place]ila Sears, [facility] [place] [address] [facility] [phone] ANESTHESIOLOGY [place], [place] [address] (Wo rk) Anesthesia Record Procedure Summary Procedure Name Responsible Anesthesia Start Anesthesia Stop Time Anesthesiologist Time CT GUIDED BIOPSY OTHER Events No events on file. No medications on file. Agents No agents on file. Blood No blood administrations on file. Lines, Drains, and Airways Type Details Placement Removal Incision 06/24/20; 1056; Left; cheek; 06/24/20 1056 by Deanna Pabon, non-laparascopic puncture RN documented in this encounter Social History Tobacco Use Types Packs/Day Years [...] on file documented as of this encounter OR Notes Anesthesia Preprocedure Evaluation - Nila Sears MD - 06/24/2020 9:59 AM EDT Pre-Anesthesia Evaluation for: Delvin morales 45 y.o. male. Patient Active Problem List Diagnosis ??? Chronic cough ??? Eosinophilic esophagitis Added automatically from request for surgery [id number] ??? Dysphagia Added automatically from request for surgery [id number] ??? Vocal cord paralysis ??? Trismus ??? Dysphagia, oropharyngeal phase ??? Drug-induced nausea and vomiting ??? Tonsil cancer cT1 N2 M0 p16(+), L tonsil A. Presenting with L neck mass; trivial tobacco history; small L tonsil tumor, EUA 12/10/2018: non-ker SCCa B. Definitive radiation 01/16/2019 - 03/11/2019; high dose cisplatin X 2, c/b grade 3 nausea and gr 2 ototoxcity; switch to weekly carbo+paclitaxel 02/25/2019 ??? Neck mass Past Medical History: Diagnosis Date ??? High cholesterol Past Surgical History: Procedure Laterality Date ??? PRO BIOPSY OROPHARYNX Bilateral 12/10/2018 BIOPSY, OROPHARYNX (WRVU 1.44) performed by Timothy David MD at [facility] MAIN OR ??? PRO DILATE ESOPHAGUS, OVER GUIDE N/A 04/22/2020 ESOPHAGEAL DILATION OVER GUIDE WIRE (WRVU 1.51) performed by Mil Beckwith MD at [facility] ENDOSCOPY ??? PRO LARYNGOSCOPY, DIRCT, OP SCOPE, BIOPSY Bilateral 12/10/2018 LARYNGOSCOPY, MICROSCOPE, WITH BIOPSY (WRVU 3.55) performed by Timothy David MD at [facility] MAIN OR ??? PRO NASAL ENDOSCOPY, DX Bilateral 12/10/2018 NASAL ENDOSCOPY DIAGNOSTIC, UNILATERAL OR BILATERAL (WRVU 1.1) performed by Timothy David MD at [facility] MAIN OR ??? PRO UPPER GI ENDOSCOPY, BIOPSY N/A 04/22/2020 EGD WITH BIOPSY (WRVU 2.49) performed by Mil Beckwith MD at [facility] ENDOSCOPY ??? PRO UPPER GI ENDOSCOPY, BIOPSY N/A 06/10/2020 EGD WITH BIOPSY (WRVU 2.49) performed by Nehemiah Zaman MD at [facility] ENDOSCOPY ??? PRO UPPER GI ENDOSCOPY, DIAGNOSTIC N/A 04/06/2020 EGD, UPPER GI ENDOSCOPY performed by Juan Carrillo MD at [facility] MAIN OR Social History Tobacco Use ??? Smoking status: Former Smoker Packs/day: 0.50 Years: 3.00 Pack years: 1.50 Types: Cigarettes Quit date: 2000 Years since quittin.3 ??? Smokeless tobacco: Never Used Substance Use Topics ??? Alcohol use: Yes Comment: once or twice a week Social History Substance and Sexual Activity Drug Use Not Currently Allergies Allergen Reactions ??? Magnesium Salicylate Rash Medications: MAR and/or home medications have been reviewed. Physical Exam: Preprocedure Vitals Current as of 06/24/20 0959 BP: 119/71 Pulse: 54 Resp: 16 SpO2: 100 Temp: 36.7 ??C (98.1 ??F) Height: Weight: BMI: IBW: Last edited 06/24/20 0900 by Airway Assessment: Mallampati: II TM distance: >3 FB Neck ROM: full Cardiovascular Assessment: Rhythm: regular Rate: normal Pulmonary Assessment: breath sounds clear to auscultation Dental Assessment: Misc Assessment: Other exam findings: Left tongue deviation Hoarse voice Last Filed Perioperative Cognitive Screening None Anesthesia Plan: ASA 2 other, The neuroradiology team requested a pre-anesthetic evaluation for Mr. Silver to assess suitability for RN conscious sedation. Reason for consult: vocal cord paralysis Mr. Rosario is a 45 year old, 82 kg [address] presenting for CT- guided biopsy of left skull. He has ahistory of vocal cord paralysis likely due to radation, per the patient. He has no active reflux/heartburn and was placed on a PPI to determine if this would help his hoarseness- not for symptoms. He has no history of lung disease or heart disease and has normal functional status. He has tolerated propofol MAC for endoscopy and has had a DL by Dr. David in 2019 (no view documentation noted in procedure report). The patient appears calm and tolerates procedures well. He does not have underlying anxiety. Assessment/Plan: There are no contraindications to RN sedation. The patient confirmed that he agreedwith this plan and wishes to proceed. Region - Other Informed Consent: PAT Clinic Note documented in this encounter Plan of Treatment Upcoming Encounters Date Type Specialty Care Team Description 10/04/2021 Office Visit Dermatology Tg Velasco MD [facility] ER [address] BLANC[address] DAL[address]DER[address] [place], [place] [address] (Wo rk) documented as of this encounter Visit Diagnoses Not on filedocumented in this encounter Care Teams Evp Managing Director Relationship Specialty Start Date End Date Gregg Garcia MD PCP - General General Internal Medicine 09/24/18 [address] [place] [address] documented as of this encounter
--- OUTSIDE RECORDS SUMMARY | 2021-09-13 17:55 | XMS_ITS | Encounter Summary ---
:1975 Author Organization [facility] [place] [address] Care Team Providers Name Role Phone Gregg Garcia MD Primary Care Provider Encounter Details Date Type Department Care Team Description 06/24/2020 Laboratory Appointment Lab 3L Bonnie Moraes Tonsil cancer; [facility] [place] [address] Social History Tobacco Use Types Packs/Day [...] 10/04/2021 Office Visit Dermatology Tg Velasco MD [facility] [address] BL[address] DAL[address]DERMAT [place], [place] [address] (Wo rk) documented as of this encounter Procedures Procedure Name Priority Date/Time Associated Comments Diagnosis HC HEMOGRAM Routine 06/24/2020 8:38 AM Neck mass Results f or this EDT procedure are i n the results section. HC CREATININE Routine 06/24/2020 8:38 AM Tonsil cancer Results for this EDT procedure are i n the results section. HC PARTIAL Routine 06/24/2020 8:38 AM Neck mass Results f or this THROMBOPLASTIN TIME EDT procedur e are in the results section. HC PROTHROMBIN TIME Routine 06/24/2020 8:38 AM Neck mass Re sults for this EDT procedure are i n the results section. HC VENIPUNCTURE Routine 06/24/2020 8:38 AM Tonsil cancer Resul ts for this EDT procedure are i n the results section. documented in this encounter Results Hemogram (06/24/2020 8:38 AM EDT) P athologist Signature WBC 5.0 4.0 - 9.5 BONNIE [employer] x10(3)/[facility] LABORATORY RBC 4.70 4.58 - BONNIE LUKAS 5.54 [facility] x10(6)/[facility] LABORATORY Hemoglobin 14.5 13.7 - Videon CentralLUKAS 16.5 gm/dL [facility] LABORATORY Hematocrit 42.4 40.5 - [facility] CentralLUKAS 48.5 % [facility] LABORATORY MCV 90.2 82.9 - BONNIE LUKAS 93.[address] [facility] LABORATORY MCH 30.9 27.5 - [facility] Central[facility]UKAS 32.1 pg [facility] LABORATORY MCHC 34.2 32.0 - [facility] 35.7 gm/dL [facility] LABORATORY Platelets 180 145 - 357 BONNIE [employer] x10(3)/[facility] LABORATORY RDWSD 39.0 36.0 - [facility] 45.[address] [facility] LABORATORY RDWCV 11.8 11.4 - [facility] 13.8 % [facility] LABORATORY MPV 8.5 7.6 - 12.9 BONNIE LUKAS [facility] LABORATORY nRBC % Auto 0.0 % [facility] LABORATORY nRBC Abs Auto 0.000 0.000 - Videon Central[facility]UKAS 0.000 [facility] x10(3)/[facility] LABORATORY Specimen Anatomical Collection Method Collection Time Receive d Time (Source) Location / / Volume Laterality Blood specimen 06/24/2020 8:38 AM 021 9:26 (specimen) EDT AM EDT Resulting Agency Comment Spec In Lab Timothy David MD HEMATOLOGY ORDERABLES Performing Organization Address City/State/[place] [address] Prothrombin Time (06/24/2020 8:38 AM EDT) P athologist Signature PT 10.6 9.4 - 12.5 [facility] LABORATORY INR 0.9 [facility] LABORATORY Comment: An INR <2.0 indicates adequate procoagul ant activity for hemostasis in most patients without underlying bleeding dis orders, though the INR may not adequately reflect hemostatic capacity i n patients with liver disease and synthetic impairment. The recommended ta rget INR range for therapeutic anticoagulation is 2.0 ? 3.0 for most applications, though lower and higher ranges may be appropriate depending on c linical circumstances. Specimen Anatomical Collection Method Collection Time Receive d Time (Source) Location / / Volume Laterality Blood specimen 06/24/2020 8:38 AM 021 9:26 (specimen) EDT AM EDT Resulting Agency Comment Spec In Lab Timothy David MD HEMATOLOGY ORDERABLES Performing Organization Address City/[facility]/ZIP Code Phon e Number [address] APTT (06/24/2020 8:38 AM EDT) P athologist Signature PTT 30 25 - 37 sec [facility] LABORATORY Comment: The PTT is NOT appropriate for heparin m onitoring. Use the Anti-Xa level for heparin monitoring (HEP UFH) or LMWH mon itoring (HEP LMW). A PTT less than 37 seconds generally indicates adequate hem ostasis. Specimen Anatomical Collection Method Collection Time Receive d Time (Source) Location / / Volume Laterality Blood specimen 06/24/2020 8:38 AM 021 9:26 (specimen) EDT AM EDT Resulting Agency Comment Spec In Lab Timothy David MD HEMATOLOGY ORDERABLES Performing Organization Address City/State/[place] [address] Creatinine (06/24/2020 8:38 AM EDT) athologist Signature Creatinine 1.13 0.80 - BONNIE MORAES 1.50 mg/dL [facility] LABORATORY Estimated GFR 78 >=60 BONNIE MORAES mL/min/1.[address]? [facility] LABORATORY Comment: This patient? s estimated glomerular filtration rate (eGFR) is between 78 mL/min/1.73 m2 (patients with less muscl e mass per kg body weight) and 90 mL/min/1.73 m2 (patients with more muscl e mass per kg body weight) as determined by the CKD-EPI equation. Asse ssment of eGFR is not appropriate when creatinine concentrations are rapidly ch anging. For clinical decisions where creatinine clearance will affect therapy , a 24-hour urine creatinine clearance may be advised. Assignment of CKD stage 1 - 5 for patien ts with an eGFR near the transition point between stages may be based on cli nical assessment of muscle mass and symptoms in addition to eGFR. Specimen Anatomical Collection Method Collection Time Receive d Time (Source) Location / / Volume Laterality Blood specimen 06/24/2020 8:38 AM 021 9:26 (specimen) EDT AM EDT Resulting Agency Comment Spec In Lab Mihir Vences MD CHEMISTRY ORDERABLES Performing Organization Address City/State/ZIP Code Phon e Number [address] TSH (06/24/2020 8:38 AM EDT) athologist Signature TSH 2.16 0.27 - 4.20 BONNIE MORAES mcIU/mL [facility] LABORATORY Specimen Anatomical Collection Method Collection Time Receive d Time (Source) Location / / Volume Laterality Blood specimen 06/24/2020 8:38 AM 021 9:26 (specimen) EDT AM EDT Resulting Agency Comment Spec In Lab Mihir Vences MD CHEMISTRY ORDERABLES Performing Organization Address City/[facility]/ZIP [facility] [place] [address] documented in this encounter Visit Diagnoses Diagnosis Tonsil cancer Malignant neoplasm of tonsil Neck mass Swelling, mass, or lump in head and neck documented in this encounter Care Teams Appellate Conferee Relationship Specialty Start Date End Date Alfaraz, Gregg, MD PCP - General General Internal Medicine 09/24/18 [address] [place] [address] documented as of this encounter
--- OUTSIDE RECORDS SUMMARY | 2021-09-13 17:55 | XMS_ITS | Encounter Summary ---
:1975 Author Organization [facility] [place] [address] Care Team Providers Name Role Phone rGegg Garcia MD Primary Care Provider Encounter Details Date Type Department Care Team Description 06/07/2020 Orders Only Radiation Oncology a t [facility] Mihir Vences MD [facility] [place] [address] RADIATION ONCOLOGY [phone] [place], [place] [address] (Wo rk) Social History Tobacco [...] Tg Velasco MD [facility] [address] [place], [place] [address] (Wo rk) documented as of this encounter Visit Diagnoses Not on filedocumented in this encounter Care Teams Library Cataloging Technician Relationship Specialty Start Date End Date Gregg Garcia MD PCP - General General Internal Medicine 09/24/18 [address] [place] [address] documented as of this encounter
--- OUTSIDE RECORDS SUMMARY | 2021-09-13 17:55 | XMS_ITS | Encounter Summary ---
:1975 Author Organization [facility] [place] [address] Care Team Providers Name Role Phone Unknown Primary Care Provider Unavailable Encounter Details Date Type Department Care Team Description 12/16/2020 Office Visit Radiation Oncology at [facility] Mihir MD Tonsil cancer [address] RADIATION ONCOLOGY [place], [place] [phone] Social History Tobacco Use Types Packs/Day Years [...] Sign Reading Time Taken Comments Blood Pressure 112/71 12/16/2020 3:05 PM EDT Pulse 65 12/16/2020 3:05 PM EDT Temperature 37.2 ??C (99 ??F) 12/16/2020 3:05 PM EDT Respiratory Rate 18 12/16/2020 3:05 PM EDT Oxygen Saturation 100% 12/16/2020 3:05 PM EDT Inhaled Oxygen Concentration - - Weight 83.7 kg (184 lb 9.6 oz) 12/16/2020 3:05 PM EDT Height - - Body Mass Index 23.7 07/13/2020 1:00 PM EDT documented in this encounter Progress Notes Shannon Gan MD - 12/16/2020 2:30 PM EDT Images from the original note were not included. Radiation Oncology Follow Up Patient Visit PATIENT NAME: Delvin Rosario DATE OF : 1975 INTERVAL HISTORY ONCOLOGIC HISTORY DIAGNOSIS / TREATMENT OVERVIEW?? 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 Definitive MULTIM[employer]IA PRODUCTION ASSISTANT completed 03/11/19. He completed re-irradiation to left neck/base of skull with proton therapy on 10/08/2020 at [facility]. ?? TREATMENT DETAILS Treatment Intent Curative Site [...] infiltration and prominence of the tongue base. Proton Re-Irradiation at [facility] 10/08/2020: 66 Gy / 33 fx (24 fractions PBS, 9 fractions IMRT). With concurrent chemotherapy. MRI 12/02/20 ([facility]): 1. ??Slight decreased enhancement and decreased bulk to abnormal soft tissue in the left jugular foramen and just medial to it. Ill-defined soft tissue in the left post styloid parapharyngeal space is not substantially changed. 2. ??Denervation phenomenon the left side as described above, not substantially changed from before. DL, esophageal dilation + botox injection, vocal cord Juvederm injection Time from therapy completion: ~ 1 year 10 months Currently, he has the following symptoms: Symptom Description Intervention Pain Pain associated with base of skull on left, occasional but multiple times per day. When it occurs it is severe, and last for 5-10 seconds, and then subsides. Sensation of tightness. Dysphagia Improving. Working with DIALYSIS SOCIAL WORKER regarding swallowing. He tolerates most foods very slowly, butrequires a great deal of water. Occasionally he will have to regurgitate food. Botox injection Xerostomia / Dysgeusia Xerostomia is mild to moderate; dysgeusia is persistently moderate Neck Fibrosis / Lymphedema / Pain Moderate left neck stiffness, anterior and to left; lymphedema improved but still present Doing home exercises Dental He has seen a dentist over the summer, not recently. Using fluoride wash. Nutrition Issues / Weight Loss Stable / weight improving. Feeding Tube Not Present Skin Denies Otalgia / Hearing Changes No otalgia; tinnitus still present, constant. Smoking Status Not smoking Voice Changes Improving. Hoarse, less breathy quality and intermittent severe coughing. Other Energy is moderate. He notes a sensation of weakness of his left shoulder. PT for shoulder is helpful. ECOG PS: 1 Grade ECOG PERFORMANCE STATUS [...] confined to bed or chair EXAM Vitals: 12/16/20 1505 BP: 112/71 Patient Position: Sitting Pulse: 65 Resp: 18 Temp: 37.2 ??C (99 ??F) TempSrc: Temporal SpO2: 100% Weight: 83.7 kg (184 lb 9.6 oz) Physical Exam Constitutional: Appearance: He is well-developed. HENT: Mouth/Throat: Comments: Visual inspection of OC and OP revealed no evidence of suspicious masses or lesions. Post-treatment left posterior oropharynx. Left tongue muscular atrophy. Palpation revealed no suspicious masses and no induration along the posterior tongue. Moisture good. Pt with teeth in good repair. Eyes: Pupils: Pupils are equal, round, and reactive to light. Neck: Comments: Palpation reveals no adenopathy in cervical, SCLV, ICLV jose eduardo basins. Moderate fibrosis left neck. Cardiovascular: Rate and Rhythm: Normal rate. Pulmonary: Effort: Pulmonary effort is normal. Breath sounds: Normal breath sounds. Skin: Findings: No erythema. Neurological: Mental Status: He is alert and oriented to person, place, and time. Cranial Nerves: No cranial nerve deficit. Comments: CN II, III, IV, , VII, V grossly intact. 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 Mild CN XI palsy with slight weakness of left shoulder. Psychiatric: Behavior: Behavior normal. Procedures: HISTORY Allergies as of 12/16/2020 - Review Complete 12/16/2020 Allergen Reaction Noted ??? Magnesium salicylate Rash 10/11/2018 Past Medical History: Diagnosis Date ??? High cholesterol Past Surgical History: Procedure Laterality Date ??? CT GUIDED BIOPSY OTHER 06/24/2020 CT Guided Biopsy Other 06/24/2020 [facility] RAD CAT SCAN ??? PRO BIOPSY OROPHARYNX Bilateral 12/10/2018 BIOPSY, OROPHARYNX (WRVU 1.44) performed by Timothy David MD at [facility] MAIN OR ??? PRO DILATE ESOPHAGUS, OVER GUIDE N/A 04/22/2020 ESOPHAGEAL DILATION OVER GUIDE WIRE (WRVU 1.51) performed by Mil Beckwith MD at [facility] ENDOSCOPY ??? PRO LARYNGOSCOPY, DIRCT, OP SCOPE, BIOPSY Bilateral 12/10/2018 LARYNGOSCOPY, MICROSCOPE, WITH BIOPSY (WRVU 3.55) performed by Timothy David MD at [facility] MAIN OR ??? PRO NASAL ENDOSCOPY, DX Bilateral 12/10/2018 NASAL ENDOSCOPY DIAGNOSTIC, UNILATERAL OR BILATERAL (WRVU 1.1) performed by Timothy David MD at [facility] MAIN OR ??? PRO UPPER GI ENDOSCOPY, BIOPSY N/A 04/22/2020 EGD WITH BIOPSY (WRVU 2.49) performed by Mil Beckwith MD at [facility] ENDOSCOPY ??? PRO UPPER GI ENDOSCOPY, BIOPSY N/A 06/10/2020 EGD WITH BIOPSY (WRVU 2.49) performed by Nehemiah Zaman MD at [facility] ENDOSCOPY ??? PRO UPPER GI ENDOSCOPY, DIAGNOSTIC N/A 04/06/2020 EGD, UPPER GI ENDOSCOPY performed by [facility] MD [facility] Social History Socioeconomic History ??? Marital status: Spouse name: Shena ??? Number of children: 2 ??? Years of education: Not on file ??? Highest education level: Not on file Occupational History ??? 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 Smoking status: Former Smoker Packs/day: 0.50 Years: 3.00 Pack years: 1.50 Types: Cigarettes Quit date: 2000 Years since quittin.7 ??? Smokeless tobacco: Never Used Vaping Use [...] Strain: ??? Difficulty of Paying Living Expenses: Not on file Food Insecurity: ??? Worried About Running Out of Food in the Last Year: Not on file ??? Ran Out of Food in the Last Year: Not on file Transportation Needs: ??? Lack of Transportation (Medical): Not on file ??? Lack of Transportation (Non-Medical): Not on file Physical Activity: ??? Days of Exercise per Week: Not on file ??? Minutes of Exercise per Session: Not on file Housing Stability: ??? Unable to Pay for Housing in the Last Year: Not on file ??? Number of Places Lived in the Last Year: Not on file ??? Unstable Housing in the Last Year: Not on file Family History Problem Relation [...] to Visit Medication Sig Dispense Refill ??? cholecalciferol, Vitamin D3, 1,000 unit Tablet Take 1,000 Units by mouth daily. ??? atorvastatin (LIPITOR) 40 mg Tablet Take 40 mg by mouth daily. 0 ??? multivitamin (THERAGRAN) Tablet Take 1 tablet by mouth daily. ??? ubidecarenone (COENZYME Q10) 100 mg Tablet Take by mouth daily. ??? pantoprazole EC (Protonix) 20 mg Tablet, Delayed Release (E.C.) Take 1 tablet by mouth 2 times daily. (Patient not taking: Reported on 12/16/2020) 180 tablet 3 No current facility-administered medications on file prior to visit. IMAGING/LAB I have personally reviewed the imaging reports and images referenced in the oncologic hx and agree with the assessment as stated. Further pertinent imaging data below TSH 03/18/20: 2.44 ASSESSMENT / PLAN Disease Status: EILEEN on clinical exam. He will continue to follow with [facility] [place] as well as [facility] for now. Toxicity: ?? CN palsies: Continue PT, s/p esophageal dilation/botox and juvederm vocal cord injection with [facility] ENT ?? Dental: no dentistry visit recently, using fluoride. Emphasized need for regular dental follow up. ?? Thyroid Function: WNL In March, will re-check at next visit. FU: follow in 3-4 months documented in this encounter Plan of Treatment Upcoming Encounters Date Type Specialty Care Team Description 10/04/2021 Office Visit Dermatology Tg Velasco MD [facility] ER [address] [place], [place] [address] (Wo rk) documented as of this encounter Visit Diagnoses Diagnosis Tonsil cancer Malignant neoplasm of tonsil documented in this encounter Care Teams Log Hooker Relationship Specialty Start Date End Date Unknown PCP - General 12/04/20 07/04/21 None documented as of this encounter
--- OUTSIDE RECORDS SUMMARY | 2021-09-13 17:55 | XMS_ITS | Encounter Summary ---
:1975 Author Organization [facility] [place] [address] Care Team Providers Name Role Phone Gregg Garcia MD Primary Care Provider Encounter Details Date Type Department Care Team Description 07/13/2020 Procedure visit Neurology at [facility] Miguelina Shannon Cranial neuropathies, multip le; [facility] MD [address] [address] NEUROLOGY DEPT [phone] [place], [place] [address] Social History Tobacco Use Types [...] Sign Reading Time Taken Comments Blood Pressure 112/65 07/13/2020 1:00 PM EDT Pulse 76 07/13/2020 1:00 PM EDT Temperature - - Respiratory Rate - - Oxygen Saturation 99% 07/13/2020 1:00 PM EDT Inhaled Oxygen Concentration - - Weight 81.6 kg (180 lb) 07/13/2020 1:00 PM EDT Height 188 cm (6' 2) 07/13/2020 1:00 PM EDT Body Mass Index 23.11 07/13/2020 1:00 PM EDT documented in this encounter Progress Notes Miguelina Shannon MD - 07/13/2020 1:00 PM EDT Delvin Rosario referred for EDX studies by Gregg Garcia MD [address] [place], [place] [address]Y [address] [place] [address] to evaluate cranial neuropathies 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 Study is to perform 7th nerve side to side amplitudes, potentially the integrity of the 5th nerve via a blink study (which could be technically difficult in this setting, so may be of limited utility), and needle EMG of trapezius and shoulder girdle muscles to evaluate for myokymia which would imply radiation associated effect.. Report scanned into [facility]. NCS/EMG: The left median, radial and lateral antebrachial cutaneous SNAP amplitudes and conduction velocitieswere preserved. Bilateral facial motor response amplitudes were preserved with normal distal motor latencies. Blink reflex was normal. Needle EMG of the left periscapular region revealed 2+ increased abnormal spontaneous activity, fibrillation potentials and positive sharp waves in the left trapezius associated with markedly reduced recruitment of long duration polyphasic motor units. IMPRESSION: Abnormal study. 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 The study does not support injury to cranial nerves V or VII on either side. The study does not support upper trunk brachial plexopathy. Clinical correlation is recommended. documented in this encounter Plan of Treatment Upcoming Encounters Date Type Specialty Care Team Description 10/04/2021 Office Visit Dermatology Tg Velasco MD [facility] [address] [place], [place] [address] (Wo rk) documented as of this encounter Visit Diagnoses Diagnosis Cranial neuropathies, multiple Unspecified disorder of cranial nerves Tonsil cancer Malignant neoplasm of tonsil documented in this encounter Care Teams Audit Officer Relationship Specialty Start Date End Date Gregg Garcia MD PCP - General General Internal Medicine 09/24/18 [address] [place] [address] documented as of this encounter
--- OUTSIDE RECORDS SUMMARY | 2021-09-13 17:55 | XMS_ITS | Encounter Summary ---
:1975 Author Organization [facility] [place] [address] Care Team Providers Name Role Phone Gregg Garcia MD Primary Care Provider Encounter Details Date Type Department Care Team Description 07/22/2020 Office Visit Hematology/Oncology Ella Brumfield Vocal c ord paralysis; at [facility] HOME HEALTH SPECIALIST Dysphagia, pharyngoesophagea l phase; [address] [place] [address] Tonsil cancer; [place], [place] Neck mass [phone] Social History Tobacco Use Types Packs/Day [...] encounter Progress Notes Ella Brumfield SLP - 07/22/2020 1:00 PM EDTSumrosa: HOME HEALTH SPECIALIST Progress Note Speech Language Pathology Treatment Note Date of Visit: 07/22/20 Patient Profile: Delvin Rosario is a 44 Y m with tonsillar cancer, s/p chemoradiation treatment and 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 Returns to clinic for HOME HEALTH SPECIALIST treatment to address management of ongoing dysphonia and dysphagia symptoms. Interval History: Patient's case was reviewed by [facility] Multidisciplinary Tumor Board with referral [place] given new cancer at base of skull. Patient reports recent difficulties with insurance company denials/appeals for recommended cancer treatment course; reports he will try to stay in [place] 4 nights/week during course of cancer treatment in [place] which is still to be scheduled. Subjective: Reports reduced intense coughing fits relative to previous visit 1 month ago, also with less coughing while eating. Describes anterior freezing (?laryngospasm), which typically happens outside of attempts to swallow; also describes heightened stress levels. Reports having coughing fit at lunch yesterday, but is able to handle symptoms better when being more conscious of reviewed precautions while eating/drinking. Reviewed additional accommodations (reducing use of phone, replacing with messaging, etc.) which he has been trying his best to do, energy conservation techniques for mealtimes; patient reports he has been maintaining his weight for at least 3 months. Objective: Pain: 0/10 at rest, intermittent pain in L neck/base of skull / nerve related pain with various postures As of 05/13/20: MPT: 6.2 seconds, 6.8 seconds with nares occluded RSI = 33 (On PPI 1x/day) Education/Counseling: Review of trialed compensatory swallow techniques to further inform pending VFSS/MBSS (unclear if this is to be scheduled at [facility] or [facility], HOME HEALTH SPECIALIST left message with [facility] HOME HEALTH SPECIALIST Department today) - left head tilt+turn to left (initial rationale for maneuver was to reduce amount of pooled material, however currently not indicated as this is reported to increase nerve pain) - supraglottic swallow (unclear if this is useful currently, TBD during VFSS/MBSS) - chin tuck during swallow (clinically appears somewhat helpful, usefulness TBD during VFSS/MBSS) Advised patient to hold on active swallowing and/or vocal exercise(s) per previous plan, given recent cancer diagnosis until further guidance is provided. Discussed possible rescue breathing techniquesrelated to what are suspected to be laryngospasm episodes, and possible use of pharyngosize; patientwould still require guidance with these exercises prior to beginning treatment. Discussed high calorie snack options if/when swallowing becomes more difficult prior to or during course of treatment, to be reviewed with RD (eg, EAT Bar) Assessment: Pt was seen today for a follow-up HOME HEALTH SPECIALIST visit, has been participating in direct voice and swallow therapy with minimal improvement to date; vocal quality continues to be significantly strained, breathy, and hoarse relative to typical baseline and vocal quality continues to be inconsistent per patient; currently discussed plan of care involving compensatory/prophylactic and comfort-based measures as he plans to participate in cancer treatment(s) within next few weeks, and reviewed EAT protocol/mealtime routine, benefits of enteral nutrition during course of treatment and pending discussionwith medical team, overt s/sx aspiration to monitor for, and importance of oral hygiene in reducing risks of aspiration pneumonia. Encouraged at least trialing use of supraglottic swallow to see if this helps with symptom management. Patient demonstrated comprehension with all recommendations regarding his treatment plan to address dysphagia and voice symptoms, continuity of care with HOME HEALTH SPECIALIST dept at [facility]. Pt will benefit from continued therapeutic interventions [...] Slow rate; swallow between bites Multiple swallows: 4-5x to address pharyngeal stasis Alternate liquids and solids Excellent oral care Thin liquid wash as needed Referrals: RD to ensure adequate nutritional needs are being met as patient prepares to participate in cancer treatment(s) Speech Therapy Goals: Pt will tolerate least restrictive diet without evidence of dysphagia / aspiration, report of pharyngeal globus. Pt / caregiver will be independent with aspiration precautions, appropriate diet modifications, and safe swallowing strategies. Further dysphagia/dysphonia goals TBD pending objective imaging results as indicated. Pt will maintain hydration / nutrition with optimal safety and efficiency. Pt will demonstrate improvement of MPT to baseline of 19 seconds. Plan: Current HOME HEALTH SPECIALIST plan of care through [facility] is TBD, pending plan for active cancer treatment(s) to be scheduled through [facility] and collaboration with [facility] HOME HEALTH SPECIALIST department. If patient has not started cancer treatment(s), subsequent HOME HEALTH SPECIALIST session scheduled for 08/05, with plan to administer MDADI as baseline and/or have VFSE/MBSS performed through [facility], otherwise VFSE/MBSS andfollow up care is likely to be scheduled via [facility] HOME HEALTH SPECIALIST dept. Thank you for allowing me to take part in Mr. Rosario's care. Please feel free to contact me with any questions. Ella Brumfield MA CCC-HOME HEALTH SPECIALIST Speech-Language Pathologist [email or web address] documented in this encounter Plan of Treatment Upcoming Encounters Date Type Specialty Care Team Description 10/04/2021 Office Visit Dermatology Tg Velasco MD [facility] [address] [place], [place] [address] (Wo rk) documented as of this encounter Visit Diagnoses Diagnosis Vocal cord paralysis Paralysis of vocal cords or larynx, unsp ecified Dysphagia, pharyngoesophageal phase Tonsil cancer Malignant neoplasm of tonsil Neck mass Swelling, mass, or lump in head and neck documented in this encounter Care Teams Health Outcomes Liaison Relationship Specialty Start Date End Date Gregg Garcia MD PCP - General General Internal Medicine 09/24/18 [address] [place] [address] documented as of this encounter
--- OUTSIDE RECORDS SUMMARY | 2021-09-13 17:55 | XMS_ITS | Encounter Summary ---
:1975 Author Organization [facility] [place] [address] Care Team Providers Name Role Phone Gregg Garcia MD Primary Care Provider Encounter Details Date Type Department Care Team Description 06/10/2020 Office Visit Hematology/Oncology Ella Brumfield Voca l cord paralysis; at [facility] CUE WORKER Dysphagia, oropharyngeal pha se; [address] [place] [address] Tonsil cancer; [place], [place] [id number] Social History Tobacco Use Types Packs/Day Years [...] Notes Treatment - Therapy - Ella Brumfield, CUE WORKER - 06/10/2020 10:00 AM EDTSummary: CUE WORKER Treatment Note Speech Language Pathology Treatment Note Patient Profile: Delvin Rosario is a 44 Y m with tonsillar cancer, s/p chemoradiation treatment. Returns to clinic for CUE WORKER treatment to address dysphonia, ongoing dysphagia symptoms. [...] benign appearing and dilation with GI (04/22). Reports scheduled endoscopy also planned for today (06/10/20) with likely biopsy to take place. Subjective: Reports continued intense coughing fits, mostly random, but occasionally does happen with eating. Recently had coughing episode in public which was difficult/embarrassing. With foods, reports globus sensation below larynx, then this will occasionally cause coughing episode and then significant difficulties with getting breath in. Coughing episode did occur during session today, rescue breathing technique (quick sniffs+exhale viapursed lips) appears helpful, however patient appears highly uncomfortable and exhibits noticeable amount of effort on attempts to inhale. Denies pain during these episodes. Has been doing VFEs inconsistently, has been very busy at work with increased vocal load. Encouragedhim to consider additional accommodations (reducing use of phone, replacing with messaging, etc.) which he has been trying his best to do. Reports he has not needed to use any energy conservation techniques for mealtimes, has been maintaining his weight. Also reports scheduled endoscopy today with biopsy; states GI is planning to further investigate EoE and possible effects, may trial elimination diet. Objective: Pain: 0/10 at rest most of the time, during supraglottic swallow today, occasional pain at 6/10 in posterior L neck / shoulder area (not base of skull), not so much with head turn+tilt to left As of 05/13/20: MPT: 6.2 seconds, 6.8 seconds with nares occluded RSI = 33 (On PPI 2x/day) Education/Review of trialed compensatory swallow techniques, ie left head tilt+turn to left (appearsto be beneficial from subjective report, ?reduced amount of pooled material), supraglottic swallow (unclear if this is useful, will continue to have patient trial this), chin tuck during swallow (somewhat helpful), and CTAR exercise. Patient encouraged to trial strategies and exercises, and stop if pain persists or increases. Assessment: Pt was seen today for a follow-up CUE WORKER visit, has been participating in direct voice [...] reducing nasal emissions as of late. Encouraged trialing use of head tilt+turn to L side and chin tuck during swallow to reduce initial pooling (likely in pyriform sinus and/or vallecular spaces per overview of recent imaging with ENT), as well as continuing focus on /humm/ exercise to maintain less breathy, resonant placement with full approximation of VFs. Introduced supraglottic swallow and CTAR exercise today. Patient may still benefit from Respiratory Therapy with PFTs given continued dyspnea; FEES order hasbeen placed, date/time TBD through CUE WORKER department in [place]. Patient demonstrated comprehension with all recommendations regarding his treatment plan to address dysphagia and voice symptoms. Patient continues to be appropriate candidate for continued CUE WORKER treatment for vocal function and dysphagia management given continued motivation and gradual progress to [...] me with any questions. Ella Brumfield MA CCC-CUE WORKER Speech-Language Pathologist [email or web address] documented in this encounter Plan of Treatment Upcoming Encounters Date Type Specialty Care Team Description 10/04/2021 Office Visit Dermatology Tg Velasco MD [facility] DR [address] [place], [place] [address] (Wo rk) documented as of this encounter Visit Diagnoses Diagnosis Vocal cord paralysis Paralysis of vocal cords or larynx, unsp ecified Dysphagia, oropharyngeal phase Tonsil cancer Malignant neoplasm of tonsil Chronic cough Cough documented in this encounter Care Teams Traffic Worker Relationship Specialty Start Date End Date Gregg Garcia MD PCP - General General Internal Medicine 09/24/[address] [place] [address] documented as of this encounter
--- OUTSIDE RECORDS SUMMARY | 2021-09-13 17:55 | XMS_ITS | Encounter Summary ---
:1975 Author Organization [facility] [address] Care Team Providers Name Role Phone Gregg Garcia MD Primary Care Provider Reason for Visit Diagnostic Test (Routine) - Closed Specialty Diagnoses / Procedures Referred By Contact Refer red To Contact Radiology Diagnoses Tonsil cancer Timothy David MD [facility] Rad Ct Scan Procedures CT Guided Biopsy Other CT Guided Biopsy Bone (Spine/Skull) CT Guided Biopsy Muscle (Chest/Abd/Pelvis) [facility] [place] [address] [place] [address] Referral ID Status Reason Start Date Expiration Date Visits V isits Requested Authorized [id number] Closed Specialty 06/09/2020 12/09/2021 1 1 Service Requested Encounter Details Date Type Department Care Team Description 06/24/[address] Scan at [facility] Timothy David, Neck mass; [facility] [place] [address] OTOLARY[address]Y DEPT. [place], [place] [address] (Wo rk) Social History Tobacco [...] Sign Reading Time Taken Comments Blood Pressure 129/78 06/24/2020 12:45 PM EDT Pulse 62 06/24/2020 11:45 AM EDT Temperature 36.6 ??C (97.8 ??F) 06/24/2020 11:43 AM EDT Respiratory Rate 16 06/24/2020 12:45 PM EDT Oxygen Saturation 100% 06/24/2020 12:45 PM EDT Inhaled Oxygen Concentration - - Weight - - Height - - Body Mass Index - - documented in this encounter Discharge Instructions Discharge InstructionsTanner Dent RN - 06/24/2020 12:05 PM EDT [facility] Vascular and Interventional Radiology Biopsy Discharge Instructions ??? Bone biopsy: call your doctor immediately if you develop a sudden onset of weakness, increased pain or swelling at the biopsy site or heavy bleeding at the biopsy site. Activity And Diet: ??? Go home and rest quietly for the remainder of the day. You may resume your normal activities tomorrow. ??? Resume your usual diet after the procedure. ??? Do not drive, sign any important/legal documents, or make any important decisions for 24 hours following sedation medications. When to call your healthcare provider: ??? If you see any redness, swelling or drainage at the biopsy site. ??? If you develop chills. ??? If you have a fever greater than or equal to 101 degrees Fahrenheit. ??? If you develop pain around the biopsy site. Bandage: ??? Check the dressing/bandaid throughout the day for an increase in drainage. Keep the biopsy site dry for 24 hours. Replace the bandaid as needed. You may shower 24 hours after the biopsy. Medication: ??? DO NOT take aspirin-containing products, ibuprofen, or blood-thinning medication for the next 24hours unless your clinician says you may do so. ??? Generally you may use acetaminophen as needed for discomfort unless you have liver disease and are instructed not to take acetaminophen. Biopsy Results ??? The results of your biopsy should be available within 5 business days and will be reported to you by your primary career services coordinator or the clinician who ordered the biopsy. Please do not call us for results as we will not have them. ??? If you have not been contacted by your clinician within 5 business days you should call that office for further information. When to call the Interventional Radiology Department: Please call with any questions or concerns. Ifit is during regular office hours, please call [phone]. If it is after regular office hours, oron weekends or holidays, please call [phone] and ask to speak to the Dry Pan Operator on callfor Interventional Radiology. You have received medication during your procedure to help lessen anxiety and keep you comfortable.These medications affect judgement and reaction time. We recommend that you do not drive, operate equipment, sign any important documents, or smoke unattended for 24 hours following your procedure. Because of the sedation, be careful on stairs, as you may be unsteady on your feet. You may resume your regular diet as tolerated. IV site -- slight redness, or tenderness is normal, you can use a warm compress. If tenderness and redness increases or foul drainage occurs, please contact your M. D. Revised 12/20/18 documented in this encounter Medications at Time [...] Tablet daily. documented as of this encounter Progress Notes Frederick Zimmerman RN - 06/24/2020 11:59 PM EDT Interventional and Vascular Radiology Post-Procedure Call Name: Jason Hilton Age: 45 y.o. Sex: Male Date of : 1975 (home) Telephone Information: PCP Gregg Garcia MD [phone] Date/Time of call: June 25, 20208:45 AM Procedure: Bone biopsy Procedural Provider: Drake Contact with patient or if not, with whom? yes Message left on answering machine? [X] N/A Are you having pain related to your procedure now? [X] No Are you having any swelling or bleeding from the site? No Are there any improvement in your symptoms? Yes Are you having any other problems related to your procedure? no Did you understand the discharge instructions given and do you have any questions? yes Do you have any comments about your Nurse or Provider or the care you received? [X] No Comments (if applicable): Deanna Goncalves RN - 06/24/2020 11:35 AM EDT [facility] NUR[facility] DATABASE Name: JASON HILTON Date of : 1975 AGE: 45 y.o. Address: [place] [address] (home) [phone] (work) Mobile: Telephone Information: Referring Provider: Timothy David REASON FOR VISIT: Order Questions Answers Where will study be performed? [facility] Radiology [120] Laterality Left Is the patient on anticoagulant / anitplatelet therapy ? No Reason for exam and clinical history: Lesion of left skull base concerning for SCCa recurrence Clinical information / hernandez questions: ATTENTION DR HUNT Does the patient have any pertinent outside imaging? Yes If so, please submit to Imaging Center/Film Library films from here Allergies Allergen Reactions ??? Magnesium Salicylate Rash Pertinent PSH: Past Surgical History: Procedure Laterality Date ??? PRO BIOPSY OROPHARYNX Bilateral 12/10/2018 BIOPSY, OROPHARYNX (WRVU 1.44) performed by Timothy David MD at [facility] MAIN OR ??? PRO DILATE ESOPHAGUS, OVER GUIDE N/A 04/22/2020 ESOPHAGEAL DILATION OVER GUIDE WIRE (WRVU 1.51) performed by Mil Beckwith MD at [facility] ENDOSCOPY ??? PRO LARYNGOSCOPY, DIRCT, OP SCOPE, BIOPSY Bilateral 12/10/2018 LARYNGOSCOPY, MICROSCOPE, WITH BIOPSY (WRVU 3.55) performed by Timothy David MD at [facility] MAIN OR ??? PRO NASAL ENDOSCOPY, DX Bilateral 12/10/2018 NASAL ENDOSCOPY DIAGNOSTIC, UNILATERAL OR BILATERAL (WRVU 1.1) performed by Timothy David MD at [facility] MAIN OR ??? PRO UPPER GI ENDOSCOPY, BIOPSY N/A 04/22/2020 EGD WITH BIOPSY (WRVU 2.49) performed by Mil Beckwith MD at [facility] ENDOSCOPY ??? PRO UPPER GI ENDOSCOPY, BIOPSY N/A 06/10/2020 EGD WITH BIOPSY (WRVU 2.49) performed by Nehemiah Zaman MD at [facility] ENDOSCOPY ??? PRO UPPER GI ENDOSCOPY, DIAGNOSTIC N/A 04/06/2020 EGD, UPPER GI ENDOSCOPY performed by Juan Carrillo MD at [facility] MAIN OR Date/Procedure Meds given/comments 06/24/20 CT guided biopsy bone (spine/ left skull) Fentanyl 250 mcg IV Versed 5 mg IV [address] 1 via stretcher. Onto table supine . All monitors, O2, safety strap in place. Meds per protocol. Laboratory Results: Lab Results Component Value Date INR 1.0 10/30/2018 Lab Results Component Value Date CREATININE 1.11 06/13/2019 Lab Results Component Value Date K 4.0 06/13/2019 Lab Results Component Value Date PLATELET 151 06/13/2019 Deanna Goncalves RN - 06/24/2020 11:23 AM EDT MD aware patient has received Versed 5mg and Fentanyl 250mg IV. MD does not want to continue additional doses of sedation at this time. documented in this encounter H&P Notes Arianna Juan MD - 06/24/2020 9:50 AM EDTSummary: Pre note INTERVENTIONAL RADIOLOGY FOCUSED H&P and PRE-PROCEDURE NOTE: PCP: Gregg Garcia MD Referring Provider: Timothy David Planned Procedure: CT guided left jugular vein biopsy at jugular foramen with moderate sedation. Procedure Indication: New cranial nerve neuropathies and left jugular foramen hypermetabolic lesion,concern for cancer recurrence Order Questions Answers Where will study be performed? [facility] Radiology [120] Laterality Left Is the patient on anticoagulant / anitplatelet therapy ? No Reason for exam and clinical history: Lesion of left skull base concerning for SCCa recurrence Clinical information / hernandez questions: ATTENTION DR HUNT Does the patient have any pertinent outside imaging? Yes If so, please submit to Imaging Center/Film Library films from here Presenting Diagnosis/ Complaint: Jason Hilton is a 45 y.o. 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 PRO DILATE ESOPHAGUS, OVER GUIDE N/A 04/22/2020 ESOPHAGEAL DILATION OVER GUIDE WIRE (WRVU 1.51) performed by Mil Beckwith MD at [facility] ENDOSCOPY ??? PRO LARYNGOSCOPY, DIRCT, OP SCOPE, BIOPSY Bilateral 12/10/2018 LARYNGOSCOPY, MICROSCOPE, WITH BIOPSY (WRVU 3.55) performed by Timothy David MD at [facility] MAIN OR ??? PRO NASAL ENDOSCOPY, DX Bilateral 12/10/2018 NASAL ENDOSCOPY DIAGNOSTIC, UNILATERAL OR BILATERAL (WRVU 1.1) performed by Timothy David MD at [facility] MAIN OR ??? PRO UPPER GI ENDOSCOPY, BIOPSY N/A 04/22/2020 EGD WITH BIOPSY (WRVU 2.49) performed by Mil Beckwith MD at [facility] ENDOSCOPY ??? PRO UPPER GI ENDOSCOPY, BIOPSY N/A 06/10/2020 EGD WITH BIOPSY (WRVU 2.49) performed by Nehemiah Zaman MD at [facility] ENDOSCOPY ??? PRO UPPER GI ENDOSCOPY, DIAGNOSTIC N/A 04/06/2020 EGD, UPPER GI ENDOSCOPY performed by Juan Carrillo MD at [facility] MAIN OR Medications: Current Outpatient Medications on File Prior to Encounter Medication Sig Dispense Refill ??? pantoprazole EC [...] current facility-administered medications on file prior to encounter. Allergies: Magnesium salicylate Social History and Habits: Social History Socioeconomic History ??? Marital status: Spouse name: Shena ??? Number of children: 2 ??? Years of education: Not on file ??? Highest education level: Not on file Occupational History ??? 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 Smoking status: Former Smoker Packs/day: 0.50 Years: 3.00 Pack years: 1.50 Types: Cigarettes Quit date: 2000 Years since quittin.3 ??? Smokeless tobacco: Never Used Substance and [...] Gatherings with Friends and Family: ??? Attends Christian Services: ??? Active Member of Clubs or [...] Labs: Lab Results Component Value Date WBC 5.0 06/24/2020 HCT 42.4 06/24/2020 PLATELET 180 06/24/2020 INR 0.9 06/24/2020 BUN 16 06/13/2019 CREATININE 1.11 06/13/2019 ALKPHOS 43 06/13/2019 AST 16 06/13/2019 ALBUMIN 4.4 06/13/2019 BILITOT 0.6 06/13/2019 ALT 27 06/13/2019 PROT 7.2 06/13/2019 K 4.0 06/13/2019 Imaging: CT neck 05/19/2020 and PET/CT 06/02/2020 Physical Exam: Heart: RRR Lungs clear: ASA: II Mallampati Class: II Full Code Assessment: 45 y.o. male h/o left tonsil SCCA, now with new cranial nerve neuropathies and PET+ lesion in left jugular foramen Plan: CT guided biopsy left jugular foramen mass with moderate sedation 06/24/2020 documented in this encounter Plan of Treatment Upcoming Encounters Date Type Specialty Care Team Description 10/04/2021 Office Visit Dermatology Tg Velasco MD [facility] ER DR BLANCHE [place], [place] [address] (Wo rk) documented as of this encounter Procedures Procedure Name Priority Date/Time Associated Diagnosis Comme nts CT GUIDED BIOPSY Routine 06/24/2020 11:42 AM Tonsil cancer Res ults for this OTHER EDT procedure are i n the results section. SURGICAL PATHOLOGY Routine 06/24/2020 9:58 AM Res ults for this REPORT EDT procedure are i n the results section. SPECIMEN TO Routine 06/24/2020 9:58 AM Results f or this PATHOLOGY EDT procedure are i n the results section. documented in this encounter Results CT Guided Biopsy Other (06/24/2020 11:42 AM EDT) Anatomical Region Laterality Modality Computed Tomography Specimen (Source) Anatomical Location Collection Method / Collectio n Time Received Time / Laterality Volume Impressions 06/24/2020 1:24 PM EDT Technically successful CT-guided needle biopsy of the left jugular foramen mass. Attending: I, Dr. Arianna Juan, was perf ormed the procedure. I, Dr. Arianna Juan, was present during the intraservice time as documented by the IR nurse. Thank you for letting us participate in the care of this patient. ??If you are a health care provider and have any questi ons regarding this report, please contact the number below. ??For patients who have questions please contact the health child care teacher that requested your imaging first. ? Narrative 06/24/2020 1:24 PM EDT PROCEDURE: CT GUIDED soft tissue biopsy Indication: Concern for squamous cell ca rcinoma recurrence OPERATORS: Arianna Juan MD INFORMED CONSENT: Informed consent was o btained and all of the patient's questions were answered prior to the sta rt of the procedure. MODERATE SEDATION: Was provided by the Special Procedures n urse using 5 mg of Versed and 250 mcg of Fentanyl intravenously. Continuous vital sign monitoring was performed. DESCRIPTION: After informed consent was obtained, a p re- procedural time-out was performed as per [facility] protocol. The patient was place d in the CT Suite in the supine position. The left jugular foramen lesion was loca lized on axial CT images. The needle entry site was marked under CT guidance. The skin was prepped and draped in the usual sterile fashion. 1% buffered Lidoc sultana was used for local anesthesia. Maximum sterile barrier technique was ut ilized. The 19/20G coaxial cutting needle biopsy set was employed. The penetration needle was advanced under imaging lucien valentine to the margin of the lesion. The biopsy needle was subsequently advanced coaxially. The tip of the biopsy needle was recorded and 4 specimens were obtain ed. All needles were removed and hemostasis obtained by manual compressio n. The samples were prepared for surgical pathology. COMPLICATIONS: There were no immediate postprocedure co mplications. The patient left the fluoroscopic suite to the ambulatory Rec overy Room in stable condition. MEDICATIONS: Patient received split doses of intraven ous fentanyl and versed from the IR nurse while pulse, pressure, and oxygen saturation were continuously monitored. 5 mg of Versed and 250 mcg of Fentanyl i ntravenously 65 mL Omnipaque 350 was administered int ravenously Timothy David MD IMG CT ORDERABLES Surgical Pathology Report (06/24/2020 9:58 AM EDT) Component Value Ref Test Analysis Performed At [facility] Method Time Signature Surgical -[id number] ? Location: [address] [place] [address] Report The signing pathologist has (i) examined the relevant preparation(s) for the [facility]IAL specimen(s) and (ii) rendered or confirmed the diagnosis(es) . HOSPITAL LABORATORY . ? Addendum ADDENDUM DISCUSSION This case has been reviewed by Dr. Jose Mendenhall MD/PhD of ? [facility] ([place]) ??by report dated 10/13/2020 with the accession number [id number]. The ??[facility] ([place]) ??diagnosis is in agreement with our diagnosis. For the full text of the [place] report(s), please r efer to Non- Documentation Pathology in the electronic health record (eD H). Electronically signed by: ?Bryon Dorantes MD Verified: ??03/08/2021 11:15 ??Dermatopathologist, Bone & Soft Tissue Pathologist Performed at: ??-[facility] Dept. 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 see Discussion. Electronically signed by: ?Bryon Dorantes MD Verified: ??06/26/2020 15:03 ??Dermatopathologist, Bone & Soft Tissue Pathologist Performed at: ??-[facility] Dept. of Pathology, [place], [place] DISCUSSION The primary tonsillar tumor ([id number]) was reviewed. The current specimen is positive for p40 and p16 love pporting the above diagnosis. It appears more pleomorphic than the primary tumor. ADDITIONAL STUDIES Immunohistochemistry Studies: Formalin-fixed, paraffin-emb edded tissue sections are studied using the polymer technique with appropriate positive and negative controls. ?These IHC studies provide the pathologist wit h adjunctive diagnostic information. Antibody specificity has been verified by testin g antibodies on a series of in-house tissues with known immunohistochemical perform ance characteristics. The clinical interpretation of any antibody positive stain ing or its absence is evaluated within the context of clinical presentation, morp hology, histopathological criteria and other diagnostic tests. SPECIMEN(S) SUBMITTED A - Left skull base, biopsy CLINICAL INFORMATION 45-year-old male past medical history of tonsillar cancer status post chemo radiation. Imaging demonstr ated a hypermetabolic mass within the left infra-temporal region SPECIMEN PROCESSING A - Labeled/Fixative: Patient demographics, formalin. Quantity/Size: Two, 0.5 x 0. 1 and 0.7 x 0.1 cm, plus additional minute fragments Tissue Description: [employer]-white needle core biopsies. Sections/Processing: Entirely submitted in 1 cassette labeled A1. ??ajw Specimen (Source) Anatomical Collection Method Collection Time Re ceived Time Location / / Volume Laterality 06/24/2020 9:58 AM EDT Timothy David MD PATHOLOGY/CYTOLOGY ORDERABLE S Performing Organization Address City/State/[place] [address] Specimen to Pathology (06/24/2020 9:58 AM EDT) Specimen Anatomical Collection Method Collection Time Receive d Time (Source) Location / / Volume Laterality AP Specimen 06/24/2020 9:58 AM EDT 11:55 AM EDT Narrative [facility] - 06/24/2020 11:55 AM EDT Specimen requisition ordered. ??Separate Pathology report to follow Resulting Agency Comment Spec In Lab Timothy David MD PATHOLOGY/CYTOLOGY ORDERABLE S Performing Organization Address City/[facility]/[place] [address] APTT (06/24/2020 8:38 AM EDT) P athologist Signature PTT 30 25 - 37 sec [facility] Comment: The PTT is NOT [...] David MD HEMATOLOGY ORDERABLES Performing Organization Address [facility]/ZIP [facility] [place] [address] Prothrombin Time (06/24/2020 8:38 AM EDT) P athologist Signature PT 10.6 9.4 - 12.5 [facility] LABORATORY INR 0.9 [facility] Comment: An INR <2.0 indicates [...] David MD HEMATOLOGY ORDERABLES Performing Organization Address [facility] Phon e Number [place] [phone] LAB[address] Hemogram (06/24/2020 8:38 AM EDT) P athologist Signature WBC 5.0 4.0 - 9.5 [facility] x10(3)/[facility] LABORATORY RBC 4.70 4.58 - [facility] 5.54 [facility] x10(6)/[facility] LABORATORY Hemoglobin 14.5 13.7 - [facility] 16[facility] gm/dL [facility]ATORY Hematocrit 42.4 40.5 - [facility] 48.5 % [facility]ATORY MCV 90.2 82.9 - SHENA GAYTAN [address] [facility] LABORATORY MCH 30.9 27.5 - SHENA LUKAS 32.1 pg [facility] LABORATORY MCHC 34.2 32.0 - SHENA LUKAS 35.7 gm/dL [facility]ORATORY Platelets 180 145 - 357 [facility] x10(3)/[facility] LABORATORY RDWSD 39.0 36.0 - SHENA GAYTAN [address] [facility] LABORATORY RDWCV 11.8 11.4 - SHENA LUKAS 13.8 % [facility] LABORATORY MPV 8.5 7.6 - 12.9 [facility] LABORATORY nRBC % Auto 0.0 % [facility] nRBC Abs Auto 0.000 0.000 - [facility] 0.000 [facility] x10(3)/[facility] LABORATORY Specimen Anatomical Collection Method Collection Time Receive d Time (Source) Location / / Volume Laterality Blood specimen 06/24/2020 8:38 AM 021 9:26 (specimen) EDT AM EDT Resulting Agency Comment Spec In Lab Timothy David MD HEMATOLOGY ORDERABLES Performing Organization Address City/State/ZIP Code Phon e Number [place] [phone] documented in this encounter Visit Diagnoses Diagnosis Neck mass Swelling, mass, or lump in head and neck Tonsil cancer Malignant neoplasm of tonsil documented in this encounter Administered Medications Inactive Administered Medications - up to 3 most recent administrations Medication Order MAR Action Action Date Dose Rate Site fentaNYL (pf) (50 mcg/mL) Given 06/24/2020 11:20 AM EDT 25 mcg multi-dose injection 25-50 mcg 25-50 mcg, Intravenous, EVERY 3 MIN PRN, Starting on Mon06/24/20 at 0959, Until Mon06/24/20 at 1358, Pain, per unit protocol, - Start dose 50 mcg (reduce dose to 25 mcg if history of sedation sensitivity). - Titration dose 25-50 mcg IV, (based on patient response) every 3 minutes PRN, to maintain procedural pain less than 2 per pain Scale. Maximum dose: 50 mcg/dose, 250 mcg/hour For use in Interventional Radiology (IR) only for procedural sedation with direct provider supervision and verbal order., Angio/IR (Intra-Procedure), Routine Given 06/24/2020 11:16 AM EDT 25 mcg Given 06/24/2020 11:11 AM EDT 25 mcg iohexoL (Omnipaque) (350 mg/mL) injection Given 06/24/2020 11:44 AM EDT 65 mLs solution 65 mL 65 mL, Intravenous, ONCE PRN, 1 dose, Starting on Mon06/24/20 at 1139, Until Mon06/24/20 at 1144, Per Protocol, Warning Vesicant/Irritant Medication , Routine lidocaine (Xylocaine) 1% (10 mg/mL) injection Given 10:55 AM EDT 10 mg 10 mg 10 mg, Subcutaneous, ONCE, 1 dose, On Mon06/24/20 at 1015, For use in Interventional Radiology (IR) only for procedure with direct provider supervision and verbal order., Angio/IR (Intra-Procedure), Routine midazolam (pf) (Versed) (1 mg/mL) multi-dose Given 11:20 AM EDT 0.5 mg injection 0.5-1 mg 0.5-1 mg, Intravenous, EVERY 3 MIN PRN, Starting on Mon06/24/20 at 0959, Until Mon06/24/20 at 1358, Sleep, - Start dose; 1 mg (Reduce dose to 0.5 mg if history of sedation sensitivity). - Titration dose: 0.5 mg - 1 mg (based on patient response) every 3 minutes PRN to obtain RASS score of -3. Maximum dose: 1 mg per dose, 5 mg/hour. For use in Interventional Radiology (IR) only for procedural sedation with direct provider supervision and verbal order., Angio/IR (Intra-Procedure), Routine Given 06/24/2020 11:16 AM EDT 0.5 mg Given 06/24/2020 11:11 AM EDT 1 mg sodium chloride 0.9 % (flush) flush 5 mL Given 06/24/2020 10:30 AM EDT 5 mLs 5 mL, Intravenous, 2 TIMES DAILY, First dose on Mon06/24/20 at 1015, Until Discontinued, Routine documented in this encounter Care Teams Cafe Or Restaurant Manager Relationship Specialty Start Date End Date Gregg Garcia MD PCP - General General Internal Medicine 09/24/18 [address] [place] [address] documented as of this encounter
--- OUTSIDE RECORDS SUMMARY | 2021-09-13 17:56 | XMS_ITS | Encounter Summary ---
:1975 Author Organization [facility] [place] [address] Care Team Providers Name Role Phone Gregg Garcia MD Primary Care Provider Encounter Details Date Type Department Care Team Description 04/22/2020 Hospital Encounter G[facility]enterology at [facility] [place] [address] [facility] [phone] CENTER GASTROENTEROLOGY DEPT. [place], [place] [address] Social History Tobacco Use Types [...] Sign Reading Time Taken Comments Blood Pressure 96/59 04/22/2020 3:30 PM EST Pulse 67 04/22/2020 1:11 PM EST Temperature 37.4 ??C (99.3 ??F) 04/22/2020 1:11 PM EST Respiratory Rate 16 04/22/2020 3:30 PM EST Oxygen Saturation 96% 04/22/2020 3:30 PM EST Inhaled Oxygen Concentration - - Weight 81.6 kg (180 lb) 04/22/2020 1:11 PM EST Height 188 cm (6' 2) 04/22/2020 1:11 PM EST Body Mass Index 23.11 04/22/2020 1:11 PM EST documented in this encounter Discharge Instructions Discharge InstructionsJuan Bojorquez RN - 04/22/2020 2:42 PM EST Upper GI Endoscopy: What to Expect at [...] the day after the procedure, use an ksmt-upz-xirllzs spray to numb yourthroat. Sucking on throat [...] occurs, please contact your Doctor. Please call [phone] before 8pm Mon-Fri with problems, questions or concerns. If you call after 8pm or on weekends, call the Hospital at [phone] and ask to speak to the Leather Grainer transfer station attendant and the page makeup system operator will contact that person for you. When should you call for help? Call 374 anytime you think you may need emergency [...] any problems. Where can you learn more? [facility]- View your After Visit Summary and more online at [email or web address] If you would like to provide feedback about your hospital experience, please call the Office of Patient and Family Relations at . If you have received this After Visit Summary in error, please immediately return it in person to the department, or notify the [facility] Privacy Office by calling toll free at between the hours of 8AM and 5PM to arrange for our retrieval of the documents at no cost to you. Content Version: 12.2 ?? [id number] [employer]. Care instructions adapted under license by [facility]. If you have questions about a medical condition or this instruction, always ask your healthcare professional. [employer] disclaims any warranty or liability for your use of this information. Patient InstructionsGoMil julian MD - 04/22/2020 3:50 PM EST Please see Recommendations in the Provation procedure report which is documented in the procedural note in [facility]. documented in this encounter Medications at Time of Discharge Medication Sig Dispensed Refills Start Date End Date multivitamin (THERAGRAN) Take 1 tablet by 0 Tablet mouth daily. cholecalciferol, Vitamin D3, Take 1,000 Units 0 1,000 unit Tablet by mouth daily. methylPREDNISolone (Medrol, Use as directed 21 tablet 0 01/202107/07/2020 [facility],) 4 mg Tablets, Dose on product Pack package. ubidecarenone (COENZYME Q10) Take by mouth 0 03/31/2021 100 mg Tablet daily. documented as of this encounter H&P Notes Anju Barahona MD - 04/22/2020 1:50 PM EST Patient Name: Delvin Rosario Patient Age: 44 y.o. Birthdate: 1975 Admit date: 04/22/2020 Attending Physician: Mil Beckwith MD PROBLEM LIST Patient Active Problem List Diagnosis Code ??? Neck mass R22.1 ??? 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 Drug-induced nausea and vomiting R11.2, T50.905A ??? Dysphagia, oropharyngeal phase R13.12 ??? Trismus R25.2 ??? Vocal cord paralysis J38.00 ??? Dysphagia R13.10 HISTORY OF PRESENT ILLNESS Delvin Rosario is a 44 y.o. man with PMHx of laryngeal cancer s/p chemoradiation (completed 03/2019) c/b dysphagia who presents for EGD for dilation of esophagus. MEDICATIONS No current facility-administered medications on file prior to encounter. Current Outpatient Medications on File Prior to Encounter Medication Sig Dispense Refill ??? cholecalciferol, Vitamin D3, 1,000 unit Tablet Take 1,000 Units by mouth daily. ??? atorvastatin (LIPITOR) 40 mg Tablet 0 ??? multivitamin (THERAGRAN) Tablet Take 1 tablet by mouth daily. ??? ubidecarenone (COENZYME Q10) 100 mg Tablet Take by mouth daily. PHYSICAL EXAM: Blood pressure 118/71, pulse 67, temperature 37.4 ??C (99.3 ??F), temperature source Temporal, resp.rate 18, height 188 cm (6' 2), weight 81.6 kg (180 lb), SpO2 99 %. GEN: Alert, cooperative. Pleasant. In NAD MP I ASA II HEENT: NCAT. Neck supple. LUNGS: breathing comfortably on RA ABD: soft, NT/ND RECENT LABS No results found for this or any previous visit (from the past 24 hour(s)). ASSESSMENT AND PLAN Delvin Rosario is a 44 y.o. y/o who presents for endoscopic evaluation. Risks extensively discussed including bleeding, infection, reaction to anesthesia, perforation, pancreatitis (if applicable), bile duct injury (if applicable), missing a cancer (if applicable) and/or other unforseen complication. Consent signed and patient well informed of the risks of the procedure. documented in this encounter Miscellaneous Notes Op Note - Mil Beckwith MD - 04/22/2020 2:16 PM EST [facility] Operative Note Patient Name: Delvin Rosario : [id number] MR#: [id number] Case Date: 04/22/2020 Surgeon: Surgeon(s) and Role: * Mil Beckwith MD - Primary * Anju Barahona MD - Fellow Preoperative diagnosis: dysphagia. H/O tonsillar malignancy s/p resection and radiation 2019 now with dysphagia. EGD 04/06/2020 with upper esophageal stricture, benign appearing. Referral for dilation. Postoperative diagnosis: * No post-op diagnosis entered * Procedure(s) (LRB): EGD WITH BIOPSY (WRVU 2.49) (N/A) ESOPHAGEAL DILATION OVER GUIDE WIRE (WRVU 1.51) (N/A) Anesthesia: General Full procedure note is documented under the Procedure section of [facility]. documented in this encounter Plan of Treatment Upcoming Encounters Date Type Specialty Care Team Description 10/04/2021 Office Visit Dermatology Tg Velasco MD [facility] [address] [place], [place] [address] (Wo rk) documented as of this encounter Procedures Procedure Name Priority Date/Time Associated Diagnosis Comme nts SPECIMEN TO Routine 04/22/2020 2:30 PM Results f or this PATHOLOGY EST procedure are i n the results section. SPECIMEN TO Routine 04/22/2020 2:30 PM Results f or this PATHOLOGY EST procedure are i n the results section. SURGICAL PATHOLOGY Routine 04/22/2020 2:29 PM Res ults for this REPORT EST procedure are i n the results section. ESOPHAGEAL DILATION 04/22/2020 2:07 PM Dysphagia, OVER GUIDE WIRE EST unspecified type (WRVU 1.51) EGD WITH BIOPSY 04/22/2020 2:07 PM Dysphagia, (WRVU 2.49) EST unspecified type UPPER GI ENDOSCOPY Routine 04/22/2020 1:47 PM Res ults for this EST procedure are i n the results section. documented in this encounter Results Specimen to Pathology (04/22/2020 2:30 PM EST) Specimen Anatomical Collection Method Collection Time Receive d Time (Source) Location / / Volume Laterality AP Specimen 04/22/2020 2:30 PM 2:30 EST PM EST Narrative [facility] - 04/22/2020 2:30 PM EST Specimen requisition ordered. ??Separate Pathology report to follow Mil Beckwith MD PATHOLOGY/CYTOLOGY ORDERABLE S Performing Organization Address City/[facility]/[place] [address] [facility] [address] Specimen to Pathology (04/22/2020 2:30 PM EST) Specimen Anatomical Collection Method Collection Time Receive d Time (Source) Location / / Volume Laterality AP Specimen 04/22/2020 2:30 PM 2:30 EST PM EST Narrative [facility] - 04/22/2020 2:30 PM EST Specimen requisition ordered. ??Separate Pathology report to follow Mil Beckwith MD PATHOLOGY/CYTOLOGY ORDERABLE S Performing Organization Address City/[facility] [place] [address] [facility] [address] Surgical Pathology Report (04/22/2020 2:29 PM EST) Component Value Ref Test Analysis Performed At [facility] Range Method Time Signature Surgical [id number] ? Location: 4T; EA06; A [facility] Report The signing pathologist has (i) examined the relevant preparation(s) for the [facility] specimen(s) and (ii) rendered or confirmed the diagnosis(es) . HOSPITAL LABORATORY . ?Surgic al Pathology DIAGNOSIS A - Distal esophagus, ?? biopsy: Squamous esophageal mucosa with hyperplastic basal lay er and intraepithelial eosinophils (up to 18 intraepithelial eosinophi ls per HPF) (see Discussion). B - Mid esophagus, ??biopsy: Squamous esophageal mucosa with mild chronic inflammation an d scattered intraepithelial eosinophils (up to 4 intraepithelial eosi nophils per HPF). Electronically signed by: ??Anais SARMIENTO PhD, Dotty Verified: ??04/24/2020 ?Pathologist Performed at: ??-[facility] Dept. of Pathology, [place], [place] DISCUSSION A - The differential diagnos is include idiopathic eosinophilic esophagitis, severe reflux esophagitis and hypersensitivity reaction. SPECIMEN(S) SUBMITTED A - distal esophagus R/O EoE, biopsy (Multiple) B - mid esophagus R/O EoE, biopsy (Multiple) CLINICAL INFORMATION 44-year-old male PMH laryngeal cancer, status post chemo/XRT , dysphagia SPECIMEN PROCESSING A - Labeled/Fixative: Distal esophagus R/O EOE, formalin. Quantity/Size: Five, 0.3-0.5 cm. Tissue Description: Soft, pink-white tissues. Sections/Processing: Submitted en toto ??in 1 cassette labeled A1. B - Labeled/Fixative: Midesophagus rule out EOE, formalin. Quantity/Size: Four, 0.3-0.5 cm. Tissue Description: Soft, pink-white tissues. Sections/Processing: Submitted en toto ??in 1 cassette labeled B1. ??ajw Specimen (Source) Anatomical Collection Method Collection Time Re ceived Time Location / / Volume Laterality 04/22/2020 2:29 PM EST Anju Barahona MD PATHOLOGY/CYTOLOGY ORDERABLE S Performing Organization Address City/State/[place] [address] UPPER GI ENDOSCOPY (04/22/2020 1:47 PM EST) Component Value Ref Test Analysis Performed At [facility] gist Range Method Time Signature UPPER GI [facility] ENDOSCOPY Endoscopy Procedure Date: 04/22/2020 1:47 PM ? Patient Name: Delvin Rosario ? Date of : 1975 ? Age: 44 ? Order #: [id number] ? Instrument Name: [id number] ? Procedure: ? Upper GI endoscopy Indications: ? Dysphagia Providers: ? Mil Beckwith MD, Anju chavez, ? Brandon Wilde RN, Kae Benson. ? Félix, Water Taxi Operator Referring : ?Gregg Alfaratatiana Medicines: ? Monitored Anesthesia Care Complications: ? No immediate complications. Procedure: ? Pre-Anesthesia Assessment: ? - [place] Protocol: ? - Pre-procedure Verification: Prior ? to the procedure, the patient 's ? identity was verified by full name, ? date of and medical rec ord ? number. The patient's identit y was ? verified on all pertinent med ical ? records, including History an d ? Physical, nursing assessment and ? pre-anesthesia assessment. Al so prior ? to the procedure, a History a nd ? Physical was performed, and p atient ? medications, allergies and ? sensitivities were reviewed. The ? patient's tolerance of previo us ? anesthesia was reviewed. The risks ? and benefits of the procedure and the ? sedation options and risks we re ? discussed with the patient. A ll ? questions were answered and i nformed ? consent was obtained. ? - Marking: The endoscopic pro cedure ? was visually marked on a nick ent ? wrist band delineating the pa tient ? name, proposed procedure and ? endoscopist's initials. ? - Time-Out: Prior to the star t of the ? procedure, the patient's ? identification, proposed proc edure, ? accurate signed consent, debbie ectly ? labeled images and records, a nd need ? for prophylactic antibiotics were ? verified by the physician, angeles e nurse, ? the physician relations representative and the techn ician in ? the procedure room. ? The procedure, indications, b enefits, ? [...] ? tolerated the procedure well. The ? upper GI endoscopy was accomp lished ? without difficulty. The patie nt ? tolerated the procedure well. ? Findings: ? A non-obstructing Schatzki ring was found at the ? gastroesophageal junction at 40 cm. The remainder of ? the esophagus appeared normal including the upper ? esophagus. The z-line was normal. ? The entire examined stomach was normal. ? The examined duodenum was normal. ? A guidewire was placed and the scope was withdrawn. ? Dilation was performed with a Savary dilator with ? mild resistance at 15 mm and 17 mm and moderate ? resistance at 19 mm. Biopsies were taken of the ? mid-esophagus and distal-esophagus with a cold ? forceps for histology. ? Moderate Sedation: ? Not applicable - See Anesthesia documentation Impression: ?- Non-obstructing Schatzki ring. ? Dilated to 19mm. There was no ? evidence for cervical esophag eal ? stricture. Mid and distal eso phagus ? biopsied to r/o EOE. ? - Normal stomach. ? - Normal examined duodenum. Recommendation: ?- Await pathology results. ? - Observe patient's clinical course. ? - Repeat upper endoscopy PRN for ? retreatment. ? - The attending physician lindsay valentino ? above was present for the ent abran ? procedure. ? Procedure Code(s): ?? --- Professional --- ? 53524, Esophagogastroduodenos copy, ? flexible, transoral; with ins ertion ? of guide wire followed by jose cruz sykes of ? dilator(s) through esophagus over ? guide wire Diagnosis Code(s): ?? --- Professional --- ? K22.2, Esophageal obstruction ? R13.10, Dysphagia, unspecifie d CPT copyright 2019 [employer]. All rights reserved. The codes documented in this report are preliminary and upon director of event sales review may be revised to meet current compliance requirements. Attending Participation: ? I was present and participated during the entire ? procedure, including non-hernandez portions. ? Mil Beckwith MD 04/22/2020 3:51:59 PM This report has been signed electronically. Number of Addenda: 0 Note Initiated On: 04/22/2020 1:47 PM Specimen (Source) Anatomical Collection Method Collection Time Re ceived Time Location / / Volume Laterality 04/22/2020 1:47 PM EST Gregg Garcia MD GENERAL SURGICAL ORDERABLES Performing Organization Address City/State/ZIP Code Phon e Number [facility] documented in this encounter Visit Diagnoses Diagnosis Dysphagia Dysphagia, unspecified documented in this encounter Admitting Diagnoses Diagnosis Dysphagia Dysphagia, unspecified documented in this encounter Administered Medications Inactive Administered Medications - up to 3 most recent administrations Medication Order MAR Action Action Date Dose Rate Site lactated ringers infusion Restarted 04/22/2020 2:32 PM EST 100 mL/hr, Intravenous, CONTINUOUS, Starting on Mon04/22/20 at 1330, Until Mon04/22/20 at 1531, Endoscopy (Day of Procedure) New Bag 04/22/2020 1:25 PM EST 100 mL/hr 100 mL/hr documented in this encounter Active and Recently Administered Medications Times are shown in EST. Continuous Medication Order 04/20/2020 04/21/2020 04/22/2020 lactated ringers infusion (CANCELED) 1325 (New Bag - Provider: Deanna Canela RN)1431 (Paused - Provider: Silverio Sidhu CRNA - Comment: Switch to gravity)1432 (Restarted - Provider: Silverio Sidhu CRNA) 100 mL/hr, at 100 mL/hr, Intravenous, CO NTINUOUS, Starting Mon04/22/20 at 1330, Until Mon04/22/20 at 1531, Endo (Day of Procedure) documented in this encounter Care Teams Air Shovel Operator Relationship Specialty Start Date End Date Gregg Garcia MD PCP - General General Internal Medicine 09/24/[address] [place] [address] documented as of this encounter
--- OUTSIDE RECORDS SUMMARY | 2021-09-13 17:56 | XMS_ITS | Encounter Summary ---
:1975 Author Organization [facility] [place] [address] Care Team Providers Name Role Phone Gregg Garcia MD Primary Care Provider Encounter Details Date Type Department Care Team Description 04/06/2020 Anesthesia Event Operating Room Bonnie Wharton D, Day STUDIO OPERATIONS ENGINEER IN CHARGE [address] [place] [address] ANESTHESIOLOGY [phone] [place], [place] [address] (Wo rk) Anesthesia Record Procedure Summary Procedure Name Responsible Anesthesia Start Anesthesia Stop Time Anesthesiologist Time EGD, UPPER GI Gaston Damico, STUDIO OPERATIONS ENGINEER IN CHARGE 04/06/20 1033 04/06/20 1 049 ENDOSCOPY (N/A Trunk) Events Date Time Event Comment 04/06/2020 1022 1033 AN Verify 1033 Start 1033 An Start Data 1035 An Induction 1035 Anesthesia Ready 1049 an stop data 1049 Recovery or ICU Handoff Patient care was transferred to the destination unit staff after review of the patient's medica l history, current anesthetic/surgi sean status and plan, according to the Provider Handoff Checklist. 1049 Stop Name Total Propofol 320 mg lactated ringers infusion 200 mL Agents Name O2 Air N2O O2 Auxiliary Flowmeter 1 Blood No blood administrations on file. Lines, Drains, and Airways Type Details Placement Removal PIV 04/06/20; 0949; median 04/06/20 0949 by Lorenzo , 04/06/20 1120 by Da, cubital vein (antecubital Brionna C, RN Rojelio luis L, RN fossa), left; [id number] catheter system; 20 gauge; distraction, tolerated well; no longer indicated, removed per policy/procedure, catheter/device intact, site care per policy/procedure; 04/06/20; 1120 documented in this encounter Social History Tobacco [...] as of this encounter OR Notes Anesthesia Postprocedure Evaluation - Gaston Damico CRNA - 04/06/2020 11:15 AM EST Department of Anesthesiology Post-procedure Note Patient: Delvin Rosario Procedure Summary Date: 04/06/20 Room / Location: [facility] PROCEDURES / [facility] MAIN OR Anesthesia Start: 1033 Anesthesia Stop: 1049 Procedure: EGD, UPPER GI ENDOSCOPY (N/A Trunk) Diagnosis: Dysphagia, unspecified type (dysphagia with previous hx tonsillar cancer with radiation to neck) Surgeon: Juan Carrillo MD Responsible Provider: Gaston Damico CRNA Anesthesia Type: general ASA Status: 3 All Anesthesia Providers: ARABELLA Independent: Gaston Damico CRNA Vitals Value Taken Time BP Temp 36.2 ??C (97.2 ??F) 04/06/20 1052 Pulse Resp SpO2 Pain Level Patient Location: PACU/[facility] Level of Consciousness: Awake and Alert Pain Management: Satisfactory Analgesia PONV: None Cardiovascular Status: At Baseline and Hemodynamically Stable Respiratory Status: At Baseline and Room Air Postoperative Fluid Status: Intravascular EUvolemia Possible Anesthetic Complications: NONE apparent at time of evaluation Final Primary Anesthesia Type: General (The anesthetic type performed was the same as planned.) Comments: Gaston Damico CRNA Anesthesia Preprocedure Evaluation - Gaston Damico CRNA - 04/06/2020 10:21 AM EST Pre-Anesthesia Evaluation for: Delvin Rosario a 44 y.o. male. Procedure(s): EGD, UPPER GI ENDOSCOPY Patient Active Problem List Diagnosis ??? Dysphagia Added automatically from request for surgery [id number] ??? Vocal cord paralysis ??? Trismus ??? [...] [facility] MAIN OR ??? PRO LARYNGOSCOPY, DIRCT, OP SCOPE, BIOPSY Bilateral 12/10/2018 LARYNGOSCOPY, MICROSCOPE, WITH BIOPSY (WRVU 3.55) performed by Timothy David MD at [facility] MAIN OR ??? PRO NASAL ENDOSCOPY, DX Bilateral 12/10/2018 NASAL ENDOSCOPY DIAGNOSTIC, UNILATERAL OR BILATERAL (WRVU 1.1) performed by Timothy David MD at [facility] MAIN OR Social History Tobacco Use ??? Smoking status: Former Smoker Packs/day: 0.50 Years: 3.00 Pack years: 1.50 Types: Cigarettes Quit date: 2000 Years since quittin.1 ??? Smokeless tobacco: Never Used Substance Use Topics ??? Alcohol use: Yes Frequency: 2-4 times a month Drinks per session: 1 or 2 Comment: once or twice a week Social History Substance and Sexual Activity Drug Use Not Currently Allergies Allergen Reactions ??? Magnesium Salicylate Rash Medications: MAR and/or home medications have been reviewed. Physical Exam: Patient Vitals for the past 24 hrs: Temp Pulse Resp BP SpO2 04/06/20 0946 36.6 ??C (97.9 ??F) 65 16 137/76 100 % Body mass index is 23.11 kg/m??. Height: 188 cm (6' 2) Weight: 81.6 kg (180 lb) Airway Assessment: Mallampati: II TM distance: <3 FB Neck ROM: full Significant hx per ENT surgery and paralyzed cord. Actively being worked up. Cardiovascular Assessment: Rhythm: regular Rate: normal Pulmonary Assessment: breath sounds clear to auscultation pulmonary exam normal Dental Assessment: - normal exam Misc Assessment: Patient is wearing No contact(s). IV access: Peripheral line Anesthesia Plan: ASA 3 general, with a(n) intravenous induction Region - Other Informed Consent: Anesthetic plan and risks discussed with patient. PAT Clinic Note documented in this encounter Plan of Treatment Upcoming Encounters Date Type Specialty Care Team Description 10/04/2021 Office Visit Dermatology Tg Velasco MD [facility] [address] [place] [address] (Wo rk) documented as of this encounter Visit Diagnoses Not on filedocumented in this encounter Administered Medications Inactive Administered Medications - up to 3 most recent administrations Medication Order MAR Action Action Date Dose Rate Site lactated ringers infusion New Bag 04/06/2020 10:33 AM EST 1,000 mL, at 50 mL/hr, Intravenous, CONTINUOUS, Starting on Mon04/06/20 at 1015, Until Mon04/06/20 at 1139, Day of Surgery (Day of Procedure) New Bag 04/06/2020 9:59 AM EST 1,000 mLs 50 mL/hr propofoL (Diprivan) 10 mg/mL bolus injection Given 03/2020 10:42 AM EST 50 mg (Anesthesia) PRN, Starting on Mon04/06/20 at 1035, Until Mon04/06/20 at 1049, Anesthesia Intra-op Given 04/06/2020 10:40 AM EST 70 mg Given 04/06/2020 10:37 AM EST 100 mg documented in this encounter Care Teams Voltage Inspector Relationship Specialty Start Date End Date Gregg Garcia MD PCP - General General Internal Medicine 09/24/18 [address] [place] [address] documented as of this encounter
--- OUTSIDE RECORDS SUMMARY | 2021-09-13 17:56 | XMS_ITS | Encounter Summary ---
:1975 Author Organization [facility] [place] [address] Care Team Providers Name Role Phone Gregg Garcia MD Primary Care Provider Reason for Referral Consultation (Urgent) - Closed Specialty Diagnoses / Procedures Referred By Contact Refer red To Contact Neurology Diagnoses Tonsil cancer Mihir Vences MD [facility] Neurology [address] [place] [address] [facility] [place] [address] [place] [address] Referral ID Status Reason Start Date Expiration Date Visits V isits Requested Authorized [id number] Closed Consult, 05/22/2020 05/22/2021 1 1 Test & Treat Reason for Visit Reason Comments Follow-up Encounter Details Date Type Department Care Team Description 05/19/2020 Office Visit Radiation Oncology at Sophia Vences MD Tonsil cancer [facility] Latia quiros [place] [address] [place] [address] [phone] (Wo rk) Social History Tobacco Use Types [...] Sign Reading Time Taken Comments Blood Pressure 131/78 05/19/2020 2:03 PM EDT Pulse 66 05/19/2020 2:03 PM EDT Temperature - - Respiratory Rate 17 05/19/2020 2:03 PM EDT Oxygen Saturation 100% 05/19/2020 2:03 PM EDT Inhaled Oxygen Concentration - - Weight - - Height - - Body Mass Index - - documented in this encounter Progress Notes Mihir Vences MD - 05/19/2020 1:30 PM EDT Images from the original note were not included. Radiation Oncology Follow Up Patient Visit PATIENT NAME: Delvin Rosario DATE OF : 1975 INTERVAL HISTORY ONCOLOGIC HISTORY DIAGNOSIS / TREATMENT OVERVIEW?? Delvin Rosario??is a 43 y.o.??male??with [id number] squamous cell carcinoma of the left tonsil, p16 (+), <??5 PY smoking history. 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 ?? TREATMENT DETAILS Treatment Intent [...] infiltration and prominence of the tongue base. Time from therapy completion: ~ 1 year 3 months Currently, he has the following symptoms: Symptom Description Intervention Pain Pain associated with base of skull on left, occasional but multiple times per day. When it occurs it is severe, and last for 5-10 seconds, and then subsides. Sensation of tightness. Dysphagia Working with SLEEVE SETTER SAFETY STITCH regarding swallowing. He tolerates most foods very slowly, but requires agreat deal of water. Occasionally he will have to regurgitate food. Xerostomia / Dysgeusia Xerostomia is mild; dysgeusia [...] Status Not smoking Voice Changes Weak voice, with breathy quality and intermittent severe coughing. Other Energy is moderate. He notes a sensation of weakness of his left shoulder. ECOG PS: 1 Grade ECOG PERFORMANCE STATUS [...] confined to bed or chair EXAM Vitals: 05/19/20 1403 BP: 131/78 Patient Position: Sitting Pulse: 66 Resp: 17 SpO2: 100% Physical Exam Constitutional: Appearance: He is well-developed. [...] Behavior normal. Procedures: HISTORY Allergies as of 05/19/2020 - Review Complete 05/19/2020 Allergen Reaction Noted ??? Magnesium salicylate Rash 10/11/2018 Past Medical History: Diagnosis Date ??? High cholesterol Past Surgical History: Procedure Laterality Date ??? PRO BIOPSY OROPHARYNX Bilateral 12/10/2018 BIOPSY, OROPHARYNX (WRVU 1.44) performed by Timothy David MD at [facility] MAIN OR ??? PRO DILATE ESOPHAGUS, OVER GUIDE N/A 04/22/2020 ESOPHAGEAL DILATION OVER GUIDE WIRE (WRVU 1.51) performed by Mil Beckwith MD at [facility] ENDOSCOPY ??? PRO LARYNGOSCOPY, DIRCT, OP SCOPE, BIOPSY Bilateral 12/10/2018 LARYNGOSCOPY, MICROSCOPE, WITH BIOPSY (WRVU 3.55) performed by Timothy David MD at [facility] MAIN OR ??? PRO NASAL ENDOSCOPY, DX Bilateral 12/10/2018 NASAL ENDOSCOPY DIAGNOSTIC, UNILATERAL OR BILATERAL (WRVU 1.1) performed by Timothy David MD at [facility] MAIN OR ??? PRO UPPER GI ENDOSCOPY, BIOPSY N/A 04/22/2020 EGD WITH BIOPSY (WRVU 2.49) performed by Mil Beckwith MD at [facility] ENDOSCOPY ??? PRO UPPER GI ENDOSCOPY, DIAGNOSTIC N/A 04/06/2020 EGD, UPPER GI ENDOSCOPY performed by Juan Carrillo MD at [facility] MAIN OR Social History Socioeconomic History ??? Marital status: Spouse name: Shena ??? Number of children: 2 ??? Years of education: Not on file ??? Highest education level: Not on file Occupational History ??? 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 Smoking status: Former Smoker [...] Gatherings with Friends and Family: ??? Attends Muslim Services: ??? Active Member of Clubs or Organizations: ??? Attends Club or Organization Meetings: ??? Marital Status: Intimate Partner Violence: ??? Fear of Current or Ex-Partner: ??? Emotionally Abused: ??? Physically Abused: ??? Sexually Abused: Family History Problem Relation Age of Onset [...] Reported on 05/19/2020) 21 tablet 0 ??? ubidecarenone (COENZYME Q10) 100 mg Tablet Take by mouth daily. No current facility-administered medications on file prior to visit. IMAGING/LAB I have personally reviewed the imaging reports and images referenced in the oncologic hx and agree with the assessment as stated. Further pertinent imaging data below TSH 03/18/20: 2.44 ASSESSMENT / PLAN Disease Status: EILEEN on clinical exam. There is some fullness around the jugular foramen and after discussion with Radiology a PET-CT was felt to be indicated to evaluate. Toxicity: ?? 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 Extensive imaging demonstrates no findings indicative of recurrent malignancy, although there is persistent thrombosis of the left IJV and some fullness in the base of skull to be evaluated by PET-CT, and we are concerned that these toxicities are related to radiotherapy. CN deficits would be a very rare complication of standard fractionation radiotherapy to 70 Gy, but case reports exist. He will continue to benefit from SLEEVE SETTER SAFETY STITCH intervention and potential ENT intervention to maximize cord function. I will also make a referral to Neurology for evaluation. ?? Other acute toxicities as expected ?? Lymphedema: continue home PT ?? Dental: no dentistry visit recently, using fluoride. Emphasized need for regular dental follow up. ?? Thyroid Function: WNL last summer, will re-check at next visit. FU: follow per HN grid pending imaging documented in this encounter Plan of Treatment Upcoming Encounters Date Type Specialty Care Team Description 10/04/2021 Office Visit Dermatology Tg Velasco MD [facility] ER DR [address] [place], [place] [address] (Wo rk) Scheduled Referrals Name Type Priority Associated Diagnoses Order S chedule Referral to Outpatient Referral Routine Tonsil cancer Ordered : Neurology 05/22/2020 documented as of this encounter Visit Diagnoses Diagnosis Tonsil cancer Malignant neoplasm of tonsil documented in this encounter Care Teams Rn Staffing Relationship Specialty Start Date End Date Gregg Garcia MD PCP - General General Internal Medicine 09/24/18 [address] [place] [address] documented as of this encounter
--- OUTSIDE RECORDS SUMMARY | 2021-09-13 17:56 | XMS_ITS | Encounter Summary ---
:1975 Author Organization [facility] [place] [address] Care Team Providers Name Role Phone Gregg Garcia MD Primary Care Provider Reason for Referral Diagnostic Test (Routine) - Closed Specialty Diagnoses / Procedures Referred By Contact Refer red To Contact Radiology Diagnoses Tonsil cancer Vocal cord paralysis, unilateral complete Dysphagia, unspecified type Shoulder weakness Tongue atrophy Carmelo Zaidi PA [facility] Rad Ct Scan Procedures CT Neck Soft Tissue w Contrast (Generic) [facility] [place] [address] [place] [address] Referral ID Status Reason Start Date Expiration Date Visits V isits Requested Authorized [id number] Closed Specialty 05/11/2020 11/07/2020 1 1 Service Requested Reason for Visit Diagnostic Test (Routine) - Closed Specialty Diagnoses / Procedures Referred By Contact Refer red To Contact Radiology Diagnoses Tonsil cancer Vocal cord paralysis, unilateral complete Dysphagia, unspecified type Shoulder weakness Tongue atrophy Carmelo Zaidi PA [facility] Rad Ct Scan Procedures CT Neck Soft Tissue w Contrast (Generic) [facility] [place] [address] [place] [address] Referral ID Status Reason Start Date Expiration Date Visits V isits Requested Authorized [id number] Closed Specialty 05/11/2020 11/07/2020 1 1 Service Requested Encounter Details Date Type Department Care Team Description 05/19/[address] Scan at [facility] [place], Tonsil cancer; [facility] Sinan Ascencio MD Vocal cord paralysis, unilateral complet e; [facility] Dysphagia, unspecified type; [place], [place] CENTER Shoulder weakness; [id number] OTOLARYNGOLOGY Tongue atrophy [phone] [place] [address] Social History Tobacco Use Types Packs/Day Years [...] 10/04/2021 Office Visit Dermatology Tg Velasco MD [facility] ER DR [address] [place], [place] [address] (Wo rk) documented as of this encounter Procedures Procedure Name Priority Date/Time Associated Diagnosis Comme nts CT NECK SOFT TISSUE Routine 05/19/2020 11:20 AM Tonsil c ancer Results for this W CONTRAST EDT Vocal cord procedure are i n paralysis, the results unilateral compl ete section. Dysphagia, unspecified type Shoulder weaknes s Tongue atrophy documented in this encounter Results CT Neck Soft Tissue w Contrast (Generic) (05/19/2020 11:20 AM EDT) Anatomical Region Laterality Modality Neck, Head Computed Tomography Specimen (Source) Anatomical Location Collection Method / Collectio n Time Received Time / Laterality Volume Impressions 05/19/2020 3:03 PM EDT 1. ??Stable appearance of the left hemitongue with fatty infiltration and prominence of the tongue base. 2. ??No new masses or lymphadenopathy. 3. ??Stability of the ill-defined soft t issue fullness at the left posterior skull base about the jugular foramen. Po sttreatment changes favored. Consider PET CT scan for further evaluation as di scussed with Dr. David. 4. ??Persistent thrombosis of the left j ugular vein with partial thrombosis of the left sigmoid and transverse sinuses. Findings discussed with Dr. David in person at time of study interpretation. I have personally reviewed the image(s) and the resident's interpretation and agree with the findings, Tanner Hardy at 05/19/2020 3:03 PM Thank you for letting us participate in the care of this patient. For questions regarding this report, please contact e number below. ? Electronically signed by: Tanner Hardy [facility] ([phone]), at 05/19/2020 3:03 PM Narrative 05/19/2020 3:03 PM EDT EXAMINATION: CT NECK SOFT TISSUE W CONTRAST (GENERIC) CLINICAL HISTORY: Head/neck cancer, surv eillance Hx of left tonsil cancer s/p definitive chemorads; now several cranial nerve palsies including left vocal cord paraly sis, left shoulder weakness; velopharyngeal insufficiency; left tongu e atrophy and protrusion to left.; Please reassess for any associated lesio n. TECHNIQUE: CT neck performed after the intravenous administration of 110 mL Omnipaque 350 contrast. . COMPARISON: CT chest 02/07/2020, MRI neck 01/20/2020, CT head 07/31/2019, PET scan 11/29/2019 11/22/2019. FINDINGS: Asymmetric fatty infiltration of the lef t hemitongue with stable prominence of the tongue base unchanged compared to pr ior. No discrete soft tissue masses along the visualized upper aerodigestive tract. No lymphadenopathy. Persistent thrombosis of the jugular vein extends i nto the sigmoid sinus with partial thrombosis of the left transverse sinus. Stable slight ill-defined soft tissue fullness at the left skull base about th e jugular foramen. No soft tissue masses within the hypoglossal canal. No osseous destructive changes identified at the skull base Visualized brain parenchyma are within n ormal limits. Paranasal sinuses and mastoid air cells are well aerated. Lung apices are clear. No lymphadenopath y within the visualized mediastinum. Procedure Note Tanner Hardy MD - 05/19/2020Formatti ng of this note might be different from the original. EXAMINATION: CT NECK SOFT TISSUE W CONTR AST (GENERIC) CLINICAL HISTORY: Head/neck cancer, surv eillance Hx of left tonsil cancer s/p definitive chemorads; now several cranial nerve palsies including left vocal cord paraly sis, left shoulder weakness; velopharyngeal insufficiency; left tongu e atrophy and protrusion to left.; Please reassess for any associated lesio n. TECHNIQUE: CT neck performed after the intravenous administration of 110 mL Omnipaque 350 contrast. . COMPARISON: CT chest 02/07/2020, MRI neck 01/20/2020, CT head 07/31/2019, PET scan 11/29/2019 11/22/2019. FINDINGS: Asymmetric fatty infiltration of the lef t hemitongue with stable prominence of the tongue base unchanged compared to pr ior. No discrete soft tissue masses along the visualized upper aerodigestive tract. No lymphadenopathy. Persistent thrombosis of the jugular vein extends i nto the sigmoid sinus with partial thrombosis of the left transverse sinus. Stable slight ill-defined soft tissue fullness at the left skull base about th e jugular foramen. No soft tissue masses within the hypoglossal canal. No osseous destructive changes identified at the skull base Visualized brain parenchyma are within n ormal limits. Paranasal sinuses and mastoid air cells are well aerated. Lung apices are clear. No lymphadenopath y within the visualized mediastinum. IMPRESSION 1. Stable appearance of the left hemiton rosa with fatty infiltration and prominence of the tongue base. 2. No new masses or lymphadenopathy. 3. Stability of the ill-defined soft tis shital fullness at the left posterior skull base about the jugular foramen. Po sttreatment changes favored. Consider PET CT scan for further evaluation as di scussed with Dr. David. 4. Persistent thrombosis of the left jug ular vein with partial thrombosis of the left sigmoid and transverse sinuses. Findings discussed with Dr. David in person at time of study interpretation. I have personally reviewed the image(s) and the resident's interpretation and agree with the findings, Tanner Hardy at 05/19/2020 3:03 PM Thank you for letting us participate in the care of this patient. For questions regarding this report, please contact [facility] number below. Electronically signed by: Tanner Hardy [facility] ([phone]), at 05/19/2020 3:03 PM Sinan Gutierrez MD IMG CT ORDERABLES documented in this encounter Visit Diagnoses Diagnosis Tonsil cancer Malignant neoplasm of tonsil Vocal cord paralysis, unilateral complet e Unilateral complete paralysis of vocal c ords or larynx Dysphagia, unspecified type Shoulder weakness Other joint derangement, not elsewhere c lassified, shoulder region Tongue atrophy Other specified conditions of the tongue documented in this encounter Administered Medications Inactive Administered Medications - up to 3 most recent administrations Medication Order MAR Action Action Date Dose Rate Site iohexoL (Omnipaque) (350 mg/mL) Given 05/19/2020 11:20 AM EDT 11 0 mLs injection solution 0-200 mL 0-200 mL, Intravenous, ONCE PRN, 1 dose, Starting on Mon05/19/20 at 1106, Until Mon05/19/20 at 1120, Per Protocol, Warning Vesicant/Irritant Medication , Radiology Contrast, Routine documented in this encounter Care Teams Move Coordinator Relationship Specialty Start Date End Date Gregg Garcia MD PCP - General General Internal Medicine 09/24/18 [address] [place] [address] documented as of this encounter
--- OUTSIDE RECORDS SUMMARY | 2021-09-13 17:56 | XMS_ITS | Encounter Summary ---
:1975 Author Organization [facility] [place] [address] Care Team Providers Name Role Phone Gregg Garcia MD Primary Care Provider Encounter Details Date Type Department Care Team Description 04/06/2020 Orders Only Gastroenterology at [facility] Juan Carrillo, [facility] Latia [place] [address] [facility] [phone] [place] [address] Social History Tobacco Use Types Packs/Day Years [...] Visit Dermatology Tg Velasco MD [facility] [address] [place], [place] [address] (Wo rk) Scheduled Orders Name Type Priority Associated Diagnoses Order S chedule ENDOSCOPY CASE Procedures Routine Dysphagia, unspecified Ord ered: 04/06/2020 REQUEST: EGD, UPPER GI type ENDOSCOPY documented as of this encounter Visit Diagnoses Diagnosis Dysphagia, unspecified type documented in this encounter Care Teams Mathematical Engineer Relationship Specialty Start Date End Date Gregg Garcia MD PCP - General General Internal Medicine 09/24/18 [address] [place] [address] documented as of this encounter
--- OUTSIDE RECORDS SUMMARY | 2021-09-13 17:56 | XMS_ITS | Encounter Summary ---
:1975 Author Organization [facility] [place] [address] Care Team Providers Name Role Phone Gregg Garcia MD Primary Care Provider Encounter Details Date Type Department Care Team Description 12/10/2019 Notes Only Otolaryngology at [facility] [place] [address] Social History Tobacco Use Types Packs/Day [...] documented as of this encounter Progress Notes Haley Foster RN - 12/10/2019 2:39 PM EDT PA completed through [employer]. Reference #: [id number]. Information fax[facility] to [facility], per patient request. documented in this encounter Plan of Treatment Upcoming Encounters Date Type Specialty Care Team Description 10/04/2021 Office Visit Dermatology Tg Velasco MD [facility] ER [address] [place], [place] [address] (Wo rk) documented as of this encounter Visit Diagnoses Not on filedocumented in this encounter Care Teams Die Maker Electronic Relationship Specialty Start Date End Date Gregg Garcia MD PCP - General General Internal Medicine 09/24/18 [address] [place] [address] documented as of this encounter
--- OUTSIDE RECORDS SUMMARY | 2021-09-13 17:56 | XMS_ITS | Encounter Summary ---
:1975 Author Organization [facility] [address] Care Team Providers Name Role Phone Gregg Garcia MD Primary Care Provider Encounter Details Date Type Department Care Team Description 12/26/2019 TH Visit Otolaryngology at [facility] Timothy David Neck mass; (TeleHealth) [facility] Latia Weinstein [place] [address] [facility] [phone] CENTER OTOLARYNGOLOGY DEPT. [employer], [place] [address] Social History Tobacco Use Types [...] encounter Progress Notes Timothy David MD - 12/26/2019 9:00 AM EDT Subjective: Patient ID: Delvin Rosario is a 44 y.o. male. HPI He is seen in follow up of: Synopsis with pertinent exam findings ?? 44 yo M presenting November 2018 with then 1 y hx of left neck mass and dysphagia x 2 months ?? 20 lb unintentional weight loss ?? Former smoker x 3 years, some EtOH, denies IVDA, negative PMHx L superior zone 2 mass extending into zone 3. ?? Left tonsil full, normal R tonsil ?? Normal FNL ?? T2N2 p16+ SCCa left tonsil ?? Completed chemoradiation Mar 2019. No breaks. Has had more neuro side effects than expected ?? Post treatment PET CT negative ?? Recent presentation to OS with left hemitongue deviation ?? Exam: left tongue deviation, still eating speaking well. FNL negative, no palpable neck mass ?? Recent MRI ?? Underwent PET CT 08/29/19, reviewed: The previously seen right-sided hypermetabolic cervical lymph node has resolved. There are new hypermetabolic but not enlarged lymph nodes in the left neck at level two. Given recent therapy and the resolution of the node in the right side of the neck, a reactive process in the left neck is favored. ?? TB recommendation was to repeat PET CT November to reassess new left sided nodes. Patient had new study 11.29.19 ?? Pathology ?? Imaging Hypermetabolic lymph nodes in the left neck at level two (image 55, 61, 66 and 73) are againseen. These lymph nodes are slightly more intense than noted in the prior study. Discussion: morphologically not appearing to be larger. Recommendations were to have patient undergo CT of neck done [facility] December 15. Telephone visit encounter 12/26/19 Time of encounter: 9:15 AM Duration of encounter: 10 minutes, which include review of medical chart, relevant imaging, blood tests as well as coordination of care Telephone visit consent was reviewed with the patient: This is a telephone visit. The visit will be billed to your insurance carrier. You may be responsible for any co-pay or call insurance is required by your insurance carrier. Risks of telemedicine include poor receptionist clerk limiting medical decision making by your provider, delays in treatment from equipment failure, and inability to complete a full evaluation [which may require an office visit]. Benefitsinclude the ability to receive care outside of our office, the limiting your requirement for displacement. Patient was in agreement with proceeding. Patient identity was confirmed and patient agreed to proceed with the interaction and treatment, if necessary. Content of discussion: Since last office visit, he has remained status quo. He denies any new ENT orswallowing issues. He underwent his CT of the neck NVR H without any difficulty. He denies any new neck mass. No new discomfort. Denies new referred otalgia. No fevers, chills, nor sweats. His voice sounds normal. Even though this was a video encounter, the patient kept his video link turned off. We reviewed the findings on the CT scan which shows the presence of these small lymph nodes in left level 2, none of which are necrotic. There is some asymmetry of the left base of tongue/tonsil region but this is not appreciably changed from his last PET/CT. We discussed reviewing his outsideCT and radiology and consider whether an FNA would be helpful. Patient is supposed to be evaluated also by Dr. George in medical oncology over the next couple weeks. Disposition: We recommended will review CT scan with radiology in regards to consider FNAB of area. Arpit be presented at TB. May need additional studies done he is also to call if there are new concerns. Patient feels that all his concerns and questions have been addressed. he is very pleased about the telephone visit encounter. documented in this encounter Plan of Treatment Upcoming Encounters Date Type Specialty Care Team Description 10/04/2021 Office Visit Dermatology Tg Velasco MD [facility] [address] [place], [place] [address] ( rk) documented as of this encounter Visit Diagnoses Diagnosis Neck mass Swelling, mass, or lump in head and neck Oropharynx cancer Malignant neoplasm of oropharynx, unspec ified site documented in this encounter Care Teams Coder Relationship Specialty Start Date End Date Gregg Garcia MD PCP - General General Internal Medicine 09/24/18 [address] [place] [address] documented as of this encounter
--- OUTSIDE RECORDS SUMMARY | 2021-09-13 17:56 | XMS_ITS | Encounter Summary ---
:1975 Author Organization [place] [address] Care Team Providers Name Role Phone Gregg Garcia MD Primary Care Provider Reason for Visit Reason Onset Date Comments Reminder Appointment 04/28/2020 Encounter Details Date Type Department Care Team Description 04/28/2020 Telephone Gastroenterology at [facility] Kenyetta Garnica, Reminder Appointment [facility] [place] [address] GASTROENTEROLOG [phone] Y DEPT Social History Tobacco Use Types Packs/Day Years [...] this encounter Miscellaneous Notes Telephone Encounter - Kenyetta Garnica CMA - 04/28/2020 9:51 AM EST Called patient to review medications and allergies for their upcoming gastroenterology Type of Appointment: Telehealth appointment. Reach Patient during MA Check: No, Did not leave a message Notes for the provider: The voicemail stated that the mobile device belong to a timoteo and I did not leave a voicemail. documented in this encounter Plan of Treatment Upcoming Encounters Date Type Specialty Care Team Description 10/04/2021 Office Visit Dermatology Tg Velasco MD [facility] [address] [place], [place] [address] (Wo rk) documented as of this encounter Visit Diagnoses Not on filedocumented in this encounter Care Teams Sales Development Manager Relationship Specialty Start Date End Date Gregg Garcia MD PCP - General General Internal Medicine 09/24/18 [address] [place] [address] documented as of this encounter
--- OUTSIDE RECORDS SUMMARY | 2021-09-13 17:56 | XMS_ITS | Encounter Summary ---
:1975 Author Organization [place] [address] Care Team Providers Name Role Phone Gregg Garcia MD Primary Care Provider Reason for Referral Diagnostic Test (Routine) - Closed Specialty Diagnoses / Procedures Referred By Contact Refer red To Contact Radiology Diagnoses Oropharynx cancer Timothy David MD [facility] Rad Mri Procedures MRI Angiogram Neck wwo Contrast (Generic) [facility] [place] [address] [place] [address] Referral ID Status Reason Start Date Expiration Date Visits V isits Requested Authorized [id number] Closed Specialty 01/16/2020 07/14/2020 1 1 Service Requested Diagnostic Test (Routine) - Closed Specialty Diagnoses / Procedures Referred By Contact Refer red To Contact Radiology Diagnoses Oropharynx cancer Timothy David MD [facility] Rad Mri Procedures MRI Angiogram Head wo & MRI Brain wwo Contrast MRI Brain wwo Contrast (Generic) [facility] [place] [address] [place] [address] Referral ID Status Reason Start Date Expiration Date Visits V isits Requested Authorized [id number] Closed Specialty 01/23/2020 07/21/2020 1 1 Service Requested Reason for Visit Diagnostic Test (Routine) - Closed Specialty Diagnoses / Procedures Referred By Contact Refer red To Contact Radiology Diagnoses Oropharynx cancer Timothy David MD [facility] Rad Mri Procedures MRI Angiogram Head wo & MRI Brain wwo Contrast MRI Brain wwo Contrast (Generic) [facility] DR [facility] Khai Winters [place] [address] [place] [address] Referral ID Status Reason Start Date Expiration Date Visits V isits Requested Authorized [id number] Closed Specialty 01/23/2020 07/21/2020 1 1 Service Requested Encounter Details Date Type Department Care Team Description 01/20/2020 Hospital Encounter MRI at [facility] Timothy David Oropharynx cancer [facility] MD Corinna [facility] [id number] OTOLARYNGOLOGY [phone] DEPT. [place], [place] [address] Social History Tobacco Use Types [...] by 0 Tablet mouth daily. cholecalciferol, Vitamin Take 1,000 Units by 0 D3, 1,000 unit Tablet mouth daily. benzonatate (TESSALON) Take 1 capsule by 21 capsule 3 201903/24/2020 200 mg mouth 3 times daily CapsuleIndications: as needed for Tonsil cancer, Chronic Cough. cough ubidecarenone (COENZYME Take by mouth 0 03/31/2021 Q10) 100 mg Tablet daily. documented as of this encounter Plan of Treatment Upcoming Encounters Date Type Specialty Care Team Description 10/04/2021 Office Visit Dermatology Tg Velasco MD [facility] [address] [place], [place] [address] (Wo rk) documented as of this encounter Procedures Procedure Name Priority Date/Time Associated Diagnosis Comme nts MRI ANGIOGRAM HEAD Routine 01/20/2020 7:50 AM Oropharynx cance r Results for this WO & MRI BRAIN WWO EST procedure are in CONTRAST the results section. MRI NECK ANGIOGRAM Routine 01/20/2020 7:50 AM Oropharynx cance r Results for this WWO CONTRAST EST procedure are i n the results section. documented in this encounter Results MRI Angiogram Neck wwo Contrast (Generic) (01/20/2020 7:50 AM EST) Anatomical Region Laterality Modality Neck Magnetic Resonance Specimen (Source) Anatomical Location Collection Method / Collectio n Time Received Time / Laterality Volume Impressions 01/20/2020 9:38 AM EST 1. ??Normal appearance of the brain. 2. ??Normal intracranial vasculature. 3. ??The extracranial carotid and verteb ral arteries have a normal appearance. 4. ??No evidence for arterial venous claudio nting within the limitations of an MRI/MRA. 5. 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 6. ??Please note this examination was no t tailored for evaluation of the soft tissues of the neck. Thank you for letting us participate in the care of this patient. For questions regarding this report, please contact e number below. ? Narrative 01/20/2020 9:38 AM EST EXAMINATION: MRI ANGIOGRAM NECK WWO CONTRAST (GENERIC), MRI ANGIOGRAM HEAD WO & MRI BRAIN WWO CONTRAST CLINICAL HISTORY: Head/neck cancer, stag ing TECHNIQUE: MRI ANGIOGRAM NECK WWO CONTRA ST (GENERIC), MRI ANGIOGRAM HEAD WO & MRI BRAIN WWO CONTRAST COMPARISON: Neck MRI 08/06/2019. MRA head/ neck 07/31/2019. CT scan neck 12/16/2019 and PET/CT scan 11/29/2019. FINDINGS: Brain MRI: Ventricles and sulci are prop ortional size. No intra-axial masses, mass effect or extra-axial collections. Intracranial midline structures are normal. No evidence for small vessel isc hemic disease or demyelination. The paranasal sinuses are clear. No microhem orrhages or calcifications on the susceptibility weighted sequence. No dif fusion-weighted abnormalities. Asymmetric fullness within the left neha tongue is again identified without a discrete mass identified. MRA head: Intracranial vessels are of no rmal course and caliber. No arterial flow related enhancement identified with in the left transverse sinus. No stenoses or aneurysms. MRA NECK: The field of view was centered at the skull base for further evaluation of the transverse/sigmoid sin uses. Aortic arch has a normal three-vessel co nfiguration. No flow-limiting stenoses along the course of the extracranial car otid and vertebral arteries. On the dynamic images no evidence for early raudel ous opacification. Multiple, partially occlusive filling de fects involve the left sigmoid sinus. The right jugular bulb is occluded witho ut opacification of the left jugular vein identified along its course. Procedure Note Tanner Hardy MD - 01/20/2020Formatti ng of this note might be different from the original. EXAMINATION: MRI ANGIOGRAM NECK WWO CONT RAST (GENERIC), MRI ANGIOGRAM HEAD WO & MRI BRAIN WWO CONTRAST CLINICAL HISTORY: Head/neck cancer, stag ing TECHNIQUE: MRI ANGIOGRAM NECK WWO CONTRA ST (GENERIC), MRI ANGIOGRAM HEAD WO & MRI BRAIN WWO CONTRAST COMPARISON: Neck MRI 08/06/2019. MRA head/ neck 07/31/2019. CT scan neck 12/16/2019 and PET/CT scan 11/29/2019. FINDINGS: Brain MRI: Ventricles and sulci are prop ortional size. No intra-axial masses, mass effect or extra-axial collections. Intracranial midline structures are normal. No evidence for small vessel isc hemic disease or demyelination. The paranasal sinuses are clear. No microhem orrhages or calcifications on the susceptibility weighted sequence. No dif fusion-weighted abnormalities. Asymmetric fullness within the left neha tongue is again identified without a discrete mass identified. MRA head: Intracranial vessels are of no rmal course and caliber. No arterial flow related enhancement identified with in the left transverse sinus. No stenoses or aneurysms. MRA NECK: The field of view was centered at the skull base for further evaluation of the transverse/sigmoid sin uses. Aortic arch has a normal three-vessel co nfiguration. No flow-limiting stenoses along the course of the extracranial car otid and vertebral arteries. On the dynamic images no evidence for early raudel ous opacification. Multiple, partially occlusive filling de fects involve the left sigmoid sinus. The right jugular bulb is occluded witho ut opacification of the left jugular vein identified along its course. IMPRESSION 1. Normal appearance of the brain. 2. Normal intracranial vasculature. 3. The extracranial carotid and vertebra l arteries have a normal appearance. 4. No evidence for arterial venous shunt ing within the limitations of an MRI/MRA. 5. 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 6. Please note this examination was not tailored for evaluation of the soft tissues of the neck. Thank you for letting us participate in the care of this patient. For questions regarding this report, please contact e number below. Timothy David MD IMG MRI ORDERABLES MRI Angiogram Head wo & MRI Brain wwo Contrast (01/20/2020 7:50 AM EST) Anatomical Region Laterality Modality Head Magnetic Resonance Specimen (Source) Anatomical Location Collection Method / Collectio n Time Received Time / Laterality Volume Impressions 01/20/2020 9:38 AM EST 1. ??Normal appearance of the brain. 2. ??Normal intracranial vasculature. 3. ??The extracranial carotid and verteb ral arteries have a normal appearance. 4. ??No evidence for arterial venous claudio nting within the limitations of an MRI/MRA. 5. 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 6. ??Please note this examination was no t tailored for evaluation of the soft tissues of the neck. Thank you for letting us participate in the care of this patient. For questions regarding this report, please contact e number below. ? Narrative 01/20/2020 9:38 AM EST EXAMINATION: MRI ANGIOGRAM NECK WWO CONTRAST (GENERIC), MRI ANGIOGRAM HEAD WO & MRI BRAIN WWO CONTRAST CLINICAL HISTORY: Head/neck cancer, stag ing TECHNIQUE: MRI ANGIOGRAM NECK WWO CONTRA ST (GENERIC), MRI ANGIOGRAM HEAD WO & MRI BRAIN WWO CONTRAST COMPARISON: Neck MRI 08/06/2019. MRA head/ neck 07/31/2019. CT scan neck 12/16/2019 and PET/CT scan 11/29/2019. FINDINGS: Brain MRI: Ventricles and sulci are prop ortional size. No intra-axial masses, mass effect or extra-axial collections. Intracranial midline structures are normal. No evidence for small vessel isc hemic disease or demyelination. The paranasal sinuses are clear. No microhem orrhages or calcifications on the susceptibility weighted sequence. No dif fusion-weighted abnormalities. Asymmetric fullness within the left neha tongue is again identified without a discrete mass identified. MRA head: Intracranial vessels are of no rmal course and caliber. No arterial flow related enhancement identified with in the left transverse sinus. No stenoses or aneurysms. MRA NECK: The field of view was centered at the skull base for further evaluation of the transverse/sigmoid sin uses. Aortic arch has a normal three-vessel co nfiguration. No flow-limiting stenoses along the course of the extracranial car otid and vertebral arteries. On the dynamic images no evidence for early raudel ous opacification. Multiple, partially occlusive filling de fects involve the left sigmoid sinus. The right jugular bulb is occluded witho ut opacification of the left jugular vein identified along its course. Procedure Note Tanner Hardy MD - 01/20/2020Formatti ng of this note might be different from the original. EXAMINATION: MRI ANGIOGRAM NECK WWO CONT RAST (GENERIC), MRI ANGIOGRAM HEAD WO & MRI BRAIN WWO CONTRAST CLINICAL HISTORY: Head/neck cancer, stag ing TECHNIQUE: MRI ANGIOGRAM NECK WWO CONTRA ST (GENERIC), MRI ANGIOGRAM HEAD WO & MRI BRAIN WWO CONTRAST COMPARISON: Neck MRI 08/06/2019. MRA head/ neck 07/31/2019. CT scan neck 12/16/2019 and PET/CT scan 11/29/2019. FINDINGS: Brain MRI: Ventricles and sulci are prop ortional size. No intra-axial masses, mass effect or extra-axial collections. Intracranial midline structures are normal. No evidence for small vessel isc hemic disease or demyelination. The paranasal sinuses are clear. No microhem orrhages or calcifications on the susceptibility weighted sequence. No dif fusion-weighted abnormalities. Asymmetric fullness within the left neha tongue is again identified without a discrete mass identified. MRA head: Intracranial vessels are of no rmal course and caliber. No arterial flow related enhancement identified with in the left transverse sinus. No stenoses or aneurysms. MRA NECK: The field of view was centered at the skull base for further evaluation of the transverse/sigmoid sin uses. Aortic arch has a normal three-vessel co nfiguration. No flow-limiting stenoses along the course of the extracranial car otid and vertebral arteries. On the dynamic images no evidence for early raudel ous opacification. Multiple, partially occlusive filling de fects involve the left sigmoid sinus. The right jugular bulb is occluded witho ut opacification of the left jugular vein identified along its course. IMPRESSION 1. Normal appearance of the brain. 2. Normal intracranial vasculature. 3. The extracranial carotid and vertebra l arteries have a normal appearance. 4. No evidence for arterial venous shunt ing within the limitations of an MRI/MRA. 5. 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 6. Please note this examination was not tailored for evaluation of the soft tissues of the neck. Thank you for letting us participate in the care of this patient. For questions regarding this report, please contact e number below. Timothy David MD IMG MRI ORDERABLES documented in this encounter Visit Diagnoses Diagnosis Oropharynx cancer Malignant neoplasm of oropharynx, unspec ified site documented in this encounter Administered Medications Inactive Administered Medications - up to 3 most recent administrations Medication Order MAR Action Action Date Dose Rate Site gadoterate meglumine (DOTAREM) 0.5 Given 01/20/2020 7:09 AM EST 17 mLs mmol/mL (376.9 mg/mL) injection 16.78 mL 16.78 mL (0.2 mL/kg/dose ? 83.9 kg), Intravenous, ONCE PRN, 1 dose, Starting on Mon01/20/20 at 0800, Until Mon01/20/20 at 0709, Per Protocol, Routine documented in this encounter Care Teams Software Architect Relationship Specialty Start Date End Date Gregg Garcia MD PCP - General General Internal Medicine 09/24/18 [address] [place] [address] documented as of this encounter
--- OUTSIDE RECORDS SUMMARY | 2021-09-13 17:56 | XMS_ITS | Encounter Summary ---
:1975 Author Organization [facility] [place] [address] Care Team Providers Name Role Phone Gregg Garcia MD Primary Care Provider Encounter Details Date Type Department Care Team Description 02/12/2020 Office Visit Hematology/Oncology Elal Brumfield, Dysp hagia, oropharyngeal phase; at [facility] CABINET MOUNTER Vocal cord paralysis; [address] [place] [phone] Social History Tobacco Use Types Packs/Day Years [...] Notes Treatment - Therapy - Ella Brumfield, CABINET MOUNTER - 02/12/2020 12:30 PM ESTSummary: CABINET MOUNTER Dysphagia, Voice Speech Language Pathology Treatment Note Patient Profile: Delvin Rosario is a 44 Y m with tonsilar cancer, s/p chemoradiation treatment. Returns to clinic for CABINET MOUNTER follow-up to address dysphagia and dysphonia symptoms, discuss behavioral management and treatment options as appropriate. Interval History: Patient most recently seen by ENT for direct visualization of vocal folds given report of changes in voice quality/endurance, with subsequent direct laryngoscopy on 01/22 which demonstrated full motion of right vocal cord and left vocal cord paralysis with median positioning; good glottic closure. Patient had VFSS/MBSS with this CABINET MOUNTER at [facility] on 02/02, which demonstrated pharyngoesophageal phase dysphagia with intact swallowing safety, but impaired swallowing efficiency, results of which may be partially contributing to cough response; video recordings of VFSS/MBSS were reviewed in depth with patient today. Chest CT has since been recommended to assess the course of the recurrent laryngeal nerve; this demonstrated no concerning lesion in the chest that could account for left vocalfold weakness/paralysis. 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 Subjective: Patient arrives to visit in relatively good spirits, stated the cough has gotten slightly worse since my swallow study; there is just this irritation that just doesn't seem to go away. Patient also reports difficulties with dyspnea during speech (in line with recent dx of L vocal fold immobility) and reduced overall energy. Objective: Pain: 0/10 Respiratory Status: Room air Current Diet: No diet orders on file Feeding / Oral Care Status: Pt is independent Cognitive-Linguistic Status: alert, oriented to person, place, and time Command Following: Follows multi-step commands Positioning: Pt up to chair Oral / Laryngeal Mechanism Clinical Assessment: No significant changes from previous visit: Mod L lingual hemiatrophy, however improved from initialevaluation; vocal quality is mild-moderately rough, moderately breathy and strained, speech intelligibility 90-100%. Voice: Subjective: Voice Handicap Index [VHI]: (Previously administered 01/08) I-F: 17 II-P: 24 III-E: 13 Total: 54 Moderate Auditory/Perceptual: CAPE-V: Roughness: 35/100 Breathiness: 40/100 Strain: 50 /100 Ptich: 10 /100 Loudness: 18/100 Overall Severity: 51/100 - Moderate Speech Rate: WNL Vocal Stability: Inconsistent Intonation: Mildly monotone Acoustic/Aerodynamic Measures: Pitch Range: Max F0: 295 Hz (increased range relative to 01/08 visit with CABINET MOUNTER, Max F0 at 233 Hz) Min F0: 95 Hz No notable breaks in voice during ascending/descending pitch glides today; patient reports he was surprised by this, as this does tend to fluctuate; states today seems to be a relatively good day for his voice S:Z Ratio: 0.86 MPT: 10 seconds (significantly reduced relative to previous measurement on 01/08, MPT = 19 s) Assessment: Pt was seen today for a follow-up CABINET MOUNTER visit. Patient demonstrated comprehension with allrecommendations regarding his treatment plan to address dysphagia and voice symptoms during session today. Patient continues to be appropriate candidate for continued CABINET MOUNTER treatment given continued motivation. Education provided re: Vocal hygiene, results from VFSS/MBSS on 02/02; MDTP approach to address swallowing deficits; energy conservation techniques and treatment options in context of L vocal fold immobility as appropriate; also discussed behavioral cough suppression therapy if symptoms continue and etiology of cough is still unable to be identified Pt will benefit from continued therapeutic interventions [...] oral care Thin liquid wash as needed Recommend weekly treatment 2x/week for 6 weeks with MDTP and vocal hygiene review; discussed with patient re: subsequent session to be scheduled 02/16 through [facility] / [facility] and/or through [facility] per CABINET MOUNTER availability in [facility]. Speech Therapy Goals: Pt will tolerate least restrictive diet without evidence of dysphagia / aspiration, report of pharyngeal globus. Pt / caregiver will be independent with aspiration precautions, appropriate diet modifications, and safe swallowing strategies. Pt will maintain hydration / nutrition with optimal safety and efficiency. [Voice goals to be determined pending further treatment sessions, per [facility] model] Plan: Subsequent session to address MDTP accomodation session, voice/energy conservation techniques, further develop voice-related goals for plan of care. Thank you for allowing me to take part in Mr. Rosario's care. Please feel free to contact me with any questions. Ella Brumfield MA [facility] Speech-Language Pathologist [email or web address] documented in this encounter Plan of Treatment Upcoming Encounters Date Type Specialty Care Team Description 10/04/2021 Office Visit Dermatology Tg Velasco MD [facility] DR [address] [place], [place] [address] (Wo rk) documented as of this encounter Visit Diagnoses Diagnosis Dysphagia, oropharyngeal phase Vocal cord paralysis Paralysis of vocal cords or larynx, unsp ecified Tonsil cancer Malignant neoplasm of tonsil documented in this encounter Care Teams Developer Automatic Relationship Specialty Start Date End Date Gregg Garcia MD PCP - General General Internal Medicine 09/24/18 [address] [place] [address] documented as of this encounter
--- OUTSIDE RECORDS SUMMARY | 2021-09-13 17:56 | XMS_ITS | Encounter Summary ---
:1975 Author Organization [facility] [place] [address] Care Team Providers Name Role Phone Gregg Garcia MD Primary Care Provider Reason for Visit Speech Therapy (Routine) - Specialty Diagnoses / Procedures Referred By Contact Refer red To Contact Diagnoses Oropharynx cancer Timothy David MD [facility] [place] [address] Referral ID Status Reason Start Date Expiration Date Visits V isits Requested Authorized [id number] Evaluate and 08/07/2019 02/03/2020 12 12 Treat Encounter Details Date Type Department Care Team Description 12/18/2019 Office Visit Hematology/Oncology Ella Brumfield Dysp hagia, at [facility] [employer] SET UP OPERATOR [employer] oropharyngeal phase [address] [place] [address] [phone] Social History Tobacco Use Types Packs/Day Years [...] encounter Miscellaneous Notes Treatment - Therapy - OctavianoElla, [employer] UP OPER[employer] - 12/18/2019 2:30 PM EDTSummary: [employer] SET UP OPERATOR [employer] Treatment Speech Language Pathology Dysphagia Treatment Note Patient Profile: Delvin Rosario is a 44 Y m with tonsilar cancer, s/p chemoradiation treatment. Returns to clinic for [employer] UP OPERATOR [employer] follow-up to address dysphagia and trismus HEP routine with Therabite. Assessment: HPI Patient Active Problem List Diagnosis Code ??? Neck mass R22.1 ??? 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 Drug-induced nausea and vomiting R11.2, T50.905A ??? Other dysphagia R13.19 Interval History: Patient is also being seen by this [employer] UP OPERATOR [employer] through [facility] [employer] SET UP OPERATOR [employer]; please see [facility] documentation for further details. Subjective: Patient arrived to session prepared with Therabite device as recommended; continues to report increase in need to clear throat Objective: Pain: 1/10 (stiffness in jaw when opening for large bite of food, b/l TMJ) Respiratory Status: Room air Current Diet: No diet orders on file Feeding / Oral Care Status: Pt is independent Cognitive-Linguistic Status: alert, oriented to person, place, and time Command Following: Follows multi-step commands Positioning: Pt up to chair Oral / Laryngeal Mechanism Clinical Assessment: No changes noted from previous visit, continues to demonstrate lingual deviation to L, VQ WFL [place] Trismus Questionnaire [GTQ] Items 1-23: 36/115 essentially resolved Facial Pain in past week: b/l temporomandibular joints, 1/10 w mandibular excursion, describes as stiffness vs true pain Patient provided education re: Therabite device and general use to address trismus s/sx, reports (-)significant s/sx trismus at this time; discussed providing patient with ARK-J device if desired. Also reviewed behavioral reflux precautions if TC is related to this. Assessment: Pt was seen today for a follow-up [employer] SET UP OPERATOR C[employer]LESS visit, continues to endorse pharyngeal globus and difficulties with swallowing efficiency. VFSS/MBSS scheduled at [facility] for 12/30/19. Patient demonstrated comprehension with all recommendations regarding his treatment plan to address dysphagia symptoms d uring session today. Pt will benefit from continued therapeutic interventions to achieve therapy goals. Diagnosis: mild oropharyngeal dysphagia Recommendations: Diet: Regular solids, thin liquids as tolerated PO medications: whole with sip of liquid or as tolerated/prescribed Risk Management: Upright position during meals and for at least 30 mins following Thin liquid wash Adequate oral care Continued trismus monitoring Recommend subsequent session to be scheduled once VFSS/MBSS has been completed. Speech Therapy Goals: To be determined by results of Modified Barium Swallow study Pt will tolerate least restrictive diet without evidence of dysphagia / aspiration. Pt / caregiver will be independent with aspiration precautions, diet modifications, and safe swallowing strategies. Pt will maintain hydration / nutrition with optimal safety and efficiency. Plan: VFSS/MBSS scheduled at [facility] for 12/30/19 to further inform treatment plan of care, assist in multidisciplinary collaboration. Ella Brumfield MA CCC-[employer] SET UP OPERATOR CENTERLESS Speech-Language Pathologist documented in this encounter Plan of Treatment Upcoming Encounters Date Type Specialty Care Team Description 10/04/2021 Office Visit Dermatology Tg Velasco MD [facility] ER [address] [place], [place] [address] (Wo rk) Scheduled Referrals Name Type Priority Associated Diagnoses Order S chedule Referral to Speech Outpatient Referral Routine Oropharynx canc er Ordered: Therapy 08/07/2019 documented as of this encounter Visit Diagnoses Diagnosis Dysphagia, oropharyngeal phase documented in this encounter Care Teams Sports Broadcasting Internship Relationship Specialty Start Date End Date Gregg Garcia MD PCP - General General Internal Medicine 09/24/18 [address] [facility] [address] [place] [address] documented as of this encounter
--- OUTSIDE RECORDS SUMMARY | 2021-09-13 17:56 | XMS_ITS | Encounter Summary ---
:1975 Author Organization [facility] [place] [address] Care Team Providers Name Role Phone Gregg Garcia MD Primary Care Provider Encounter Details Date Type Department Care Team Description 04/06/2020 Hospital Encounter Operating Room Rick Montez, Rogelio Verde MD [address] [place] [phone] GASTROENTEROLOGY [place], [place] [address] (Wo rk) Social History Tobacco [...] Sign Reading Time Taken Comments Blood Pressure 94/51 04/06/2020 11:10 AM EST Pulse 71 04/06/2020 11:10 AM EST Temperature 36.2 ??C (97.2 ??F) 04/06/2020 10:52 AM EST Respiratory Rate 17 04/06/2020 11:10 AM EST Oxygen Saturation 97% 04/06/2020 11:10 AM EST Inhaled Oxygen Concentration - - Weight 81.6 kg (180 lb) 04/06/2020 9:46 AM EST Height 188 cm (6' 2) 04/06/2020 9:46 AM EST Body Mass Index 23.11 04/06/2020 9:46 AM EST documented in this encounter Discharge Instructions Discharge InstructionsKarol Roberson RN - 04/06/2020 11:06 AM EST You have just undergone surgery and the following instructions are given to help you have an uneventful recovery: DIET: ??? Avoid alcohol for the next 24 hours, otherwise eat and drink as usual. ACTIVITY ??? On the day of the procedure please have a friend drive you home and escort you into your house. Plan to relax for the next few hours. ??? Do not drive or operate machinery until the day after the procedure. ??? DO NOT make any important personal or business decisions for 24 hours. ??? On the day after your procedure, you may return to your usual activities, unless otherwise instructed. DRIVING RESTRICTIONS: ??? You should not drive until you are pain free and off narcotic pain medication. TREATMENT FOR COMMON AFTER EFFECTS ENDOSCOPY/ERCP ??? Sore throat: this will pass in a day or two. Throat lozenges, cold liquids, or gargling with warm salt water may help to ease the discomfort. ??? Mild abdominal pain and bloating: rest and take only liquids. DURING REGULAR BUSINESS HOURS CALL YOUR PHYSICIAN AT : (FOR AFTER HOURS CALL [phone] AND ASK FOR PHYSICIAN COVERING FOR YOUR DOCTOR TO BE PAGED) ENDOSCOPY/ERCP ??? Fever or chills ??? Severe abdominal pain or bloating ??? Vomiting blood ??? Difficulty breathing or swallowing ??? Pain in chest ??? Any questions or problems SMOKING CESSATION INFORMATION: ??? [place] QUITLINE: ??? [place] QUITLINE: ??? [email or web address] If you smoke, stop now! MAKE SURE YOU: ??? Understand these instructions. ??? Will seek medical care if you are feeling poor, or get worse. Will call the office with any questions or concerns at . documented in this encounter Medications at Time of Discharge Medication Sig Dispensed Refills Start Date End Date multivitamin (THERAGRAN) Take 1 tablet by 0 Tablet mouth daily. cholecalciferol, Vitamin Take 1,000 Units by 0 D3, 1,000 unit Tablet mouth daily. ubidecarenone (COENZYME Take by mouth 0 03/31/2021 Q10) 100 mg Tablet daily. documented as of this encounter Progress Notes Karol Roberson RN - 04/06/2020 11:40 AM ESTSummary: Recovery s/p upper endoscopy Uneventful recovery from endoscopy, patient met all criteria for PACU discharge to home easily. Discharge instructions reinforced with patient, who stated understanding. All questions answered. See DocFlowsheet for full details. Patient discharged ambulatory with a written copy of instructions and endoscopy report to grazyna in the care of adult family member. Brionna Ventura RN - 04/06/2020 10:11 AM EST All discharge instructions provided preoperatively. Pt provided with verbal and copy of written instruction. Verbalizes understanding and satisfaction with teaching provided. Denies needs, questions, concerns at this time. documented in this encounter H&P Notes Juan Carrillo MD - 04/06/2020 9:46 AM EST Patient Name: Delvin Rosario Patient Age: 44 y.o. Birthdate: 1975 Admit date: 04/06/2020 Attending Physician: Juan Carrillo MD Gastroenterology and Hepatology Pre-Procedure History and Physical Exam Procedure: EGD: Indication: dysphagia; history of head/neck cancer s/p radiation Patient Active Problem List Diagnosis Code ??? Neck mass R22.1 ??? 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 Drug-induced nausea and vomiting R11.2, T50.905A ??? Dysphagia, oropharyngeal phase R13.12 ??? Trismus R25.2 ??? Vocal cord paralysis J38.00 ??? Dysphagia R13.10 EXAM: HEENT: Airway examined, oropharynx clear Mallampati Score: II (soft palate, uvula, fauces visible) LUNGS: Clear to auscultation HEART: Regular rate and rhythm, normal S1, S2 ABDOMEN: Normal bowel sounds, soft, non tender, non distended, A/P Proceed with the planned endoscopic procedure. ASA 2 - Patient with mild systemic disease with no functional limitations Sedation Plan: anesthesia Risks and benefits of the procedure explained to the patient. Consent signed. documented in this encounter Plan of Treatment Upcoming Encounters Date Type Specialty Care Team Description 10/04/2021 Office Visit Dermatology Tg Velasco MD [facility] ER [address] [facility] [place], [place] [address] (Wo rk) documented as of this encounter Procedures Procedure Name Priority Date/Time Associated Diagnosis Comme nts EGD, UPPER GI 04/06/2020 10:30 AM Dysphagia, ENDOSCOPY EST unspecified type UPPER GI ENDOSCOPY Routine 04/06/2020 10:29 AM Re sults for this EST procedure are i n the results section. documented in this encounter Results UPPER GI ENDOSCOPY (04/06/2020 10:29 AM EST) Component Value Ref Test Analysis Performed At [facility] Range Method Time Signature UPPER GI [facility] [place] [facility] ENDOSCOPY Endoscopy Procedure Date: 04/06/2020 10:29 AM ? Patient Name: Delvin Rosario ? Date of : 1975 ? Age: 44 ? Order #: [id number] ? Instrument Name: [id number] ? Procedure: ? Upper GI endoscopy Indications: ? Dysphagia Patient Profile: ? 44 yo M with h/o tonsillar malignancy ? s/p resection and radiation p resents ? with dysphagia for EGD. Providers: ? Juan Carrillo Referring MD: ?Mia Urena Medicines: ? See the Anesthesia note for ? documentation of the administ ered ? medications Complications: ? No immediate complications. Procedure: ? [...] procedure were verif ied by ? the physician, the nurse, the ? harmonic analyst and the technicia n in the ? pre-procedure area in the pro cedure ? room. Mental Status Examinati on: ? alert and [...] antiplatelet agents. ASA Grad e ? Assessment: II - A patient wi th mild ? systemic disease. After revie wing the ? risks and benefits, the patie nt was ? deemed in satisfactory condit ion to ? undergo the procedure. The an esthesia ? plan was to use monitored ane sthesia ? care (MAC). Immediately prior to ? administration of medications , the ? patient was re-assessed for a dequacy ? to receive sedatives. The hea rt rate, ? respiratory rate, oxygen satu rations, [...] reactions. The ? Endoscope was introduced thro h the ? mouth, and advanced to the ird part ? of duodenum. The patient tole rated ? the procedure well. The Endos cope was ? introduced through the and ad vanced ? to the. The patient tolerated the ? procedure well. The upper GI ? endoscopy was accomplished wi out ? difficulty. The patient dima ated the ? procedure well. ? Findings: ? One benign-appearing, intrinsic severe (stenosis; an ? endoscope cannot pass) stenosis was found 17 to 18 cm ? from the incisors. This stenosis measured less than ? one cm (in length). The stenosis was unable to be ? traversed with the upper endoscope, which met ? resistance with attempted esophageal intubation. ? After downsizing scope to the pediatric gastroscope ? the esophagus was easily traversed and the upper ? endoscopy was completed. Non-obstructive Schatzki ? ring at 40-cm from incisors. ? The entire examined stomach was normal. ? The examined duodenum was normal. ? Impression: ?- Benign-appearing esophageal ? stenosis. ? - Non-obstructive Schatzki ri ng at ? 40-cm from incisors. ? - Normal stomach. ? - Normal examined duodenum. ? - No specimens collected. Recommendation: ?- Patient has a contact number ? available for emergencies. Th e signs ? and symptoms of potential del ayed ? complications were discussed with the ? patient. Return to normal act ivities ? tomorrow. Written discharge ? instructions were provided to the ? patient. ? - Repeat upper endoscopy with in 1-2 ? weeks at [facility] ? Center with advanced endoscop ist. ? - Follow up in clinic as sche duled ? with Mia Eckertgrant DASH in ? Gastroenterology Clinic. ? Procedure Code(s): ?? --- Professional --- ? 47056, Esophagogastroduodenos copy, ? flexible, transoral; diagnost ic, ? including collection of speci men(s) ? by brushing or washing, when ? performed (separate procedure ) CPT copyright 2019 [employer] [place] [employer]. All rights reserved. The codes documented in this report are preliminary and upon mileage clerk review may be revised to meet current compliance requirements. Juan Carrillo, 04/06/2020 11:02:39 AM Number of Addenda: 0 Note Initiated On: 04/06/2020 10:29 AM Specimen (Source) Anatomical Collection Method Collection Time Re ceived Time Location / / Volume Laterality 04/06/2020 10:29 AM EST Juan Carrillo MD GENERAL SURGICAL ORDERABLES Performing Organization Address [...] 9:59 AM EST 1,000 mLs 50 mL/hr documented in this encounter Active and Recently Administered Medications Times are shown in EST. Continuous Medication Order 04/04/2020 04/05/2020 04/06/2020 lactated ringers infusion (CANCELED) [id number] (New Bag - Provider: Brionna Ventura RN)[id number] (New Bag - Provider: Gaston Damico CRNA)1049 (Anesthesia Volume Adjustment - Provider: Gaston Damico CRNA) 1,000 mL, at 50 mL/hr, Intravenous, CONT INUOUS, Starting Mon04/06/20 at 1015, Until Mon04/06/20 at 1139, Day of Surgery (Day of Procedure) documented in this encounter Care Teams Medical Investigator Relationship Specialty Start Date End Date Gregg Garcia MD PCP - General General Internal Medicine 09/24/18 [address] [place] [address] [place] [address] documented as of this encounter
--- OUTSIDE RECORDS SUMMARY | 2021-09-13 17:56 | XMS_ITS | Encounter Summary ---
:1975 Author Organization [facility] [place] [address] Care Team Providers Name Role Phone Gregg Garcia MD Primary Care Provider Encounter Details Date Type Department Care Team Description 03/18/2020 Office Visit Hematology/Oncology Ella Brumfield Voca l cord paralysis; at [facility] [employer]ACKSMITH APPRENTICE Tonsil cancer; [address] Dysphagia, [place] [phone] Social History Tobacco Use Types Packs/Day Years [...] encounter Progress Notes Ella Brumfield SLP - 03/18/2020 9:15 AM ESTSummary: BLACKSMITH APPRENTICE Voice Txt Speech Language Pathology Progress Note Patient Profile: Delvin Rosario is a 44 Y m with tonsillar cancer, s/p chemoradiation treatment. Returns to clinic for BLACKSMITH APPRENTICE treatment to address dysphonia symptoms. Interval History: Patient most recently seen by ENT for direct visualization of vocal folds given report of changes in voice quality/endurance, with subsequent direct laryngoscopy on 01/22 which demonstrated full motion of right vocal cord and left vocal cord paralysis with median positioning; good glottic closure. Patient had VFSS/MBSS with this BLACKSMITH APPRENTICE at [facility] on 02/02, which demonstrated pharyngoesophageal phase [...] the vocalis muscles (left greater than right). ?? 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 Patient has referral for GI consult to address esophageal involvement with continued dysphagia symptoms despite active participation in swallowing treatment with BLACKSMITH APPRENTICE, scheduled for 03/24/20. Subjective: Patient arrives to visit in relatively good spirits, states he continues to feel ballooning sensation when following with liquid wash to address pharyngeal residue, particularly with effortful swallow; reports the other night, he did have difficulties swallowing thin liquid (water), described this as feeling inability to swallow followed by increased pressure in pharynx, then material comes back up, and cough is triggered. Objective: Pain: 0/10 today; during week, reports continued (although less frequent) instances pain in L neck /occipital region at about 7/10 during swallowing exercise, quickly resolved Respiratory Status: Room air Current Diet: No [...] moderately breathy and strained, speech intelligibility 90-100%. MDTP: On Hold pending GI consult 03/24/20 Voice: Subjective: States he has noticed some gradual improvements since using VFEs, although states he feels things have definitely fluctuated and he is back to his 'original baseline' from about January when issues began; reports remaining conscious of vocal intensity does help with ability to access higher range, particularly with song he sings to his daughter in evening Ain't No Bugs on Me Reviewed VFEs (reports continued difficulties with accessing higher range, continued improvements with accessing and maintaining less breathy VQ with reviewed techniques, but not as much during speaking; benefits from cues such as easy and above a whisper as well as taking things slower during VFEs) Patient able to maintain less breathy and consistent phonation without vocal breaks during single syllable /m/ C+V words Voice Handicap Index [VHI]: From 01/09/20: I-F: 17 II-P: 24 III-E: 13 Total: 54 - Moderate Current 03/18/20 I-F: 28 II-P: 31 III-E: 16 Total: 75 Severe Auditory/Perceptual: CAPE-V: Roughness: 35/100 Breathiness: 40/100 Strain: 50 /100 Ptich: 10 /100 Loudness: 18/100 Overall Severity: 51/100 - Moderate Speech Rate: WNL Vocal Stability: Inconsistent Intonation: Mildly monotone Acoustic/Aerodynamic Measures: Pitch Range: Max F0: 295 Hz (increased range relative to 01/08 visit with BLACKSMITH APPRENTICE, Max F0 at 233 Hz) Min F0: 95 Hz S:Z Ratio: 0.86 MPT: 12.13 seconds (mild improvement to date) Assessment: Pt was seen today for a follow-up BL[employer]SMITH APPRENTICE visit, has been participating in direct voice therapy with slow, gradual improvements in vocal control and stability; MDTP on hold pending results fromGI consult (further investigation of esophageal involvement related to swallowing function warranted(hypertension of upper esophagus noted during VFSS on 02/02; may consider HR pharyngoesophageal manometry to evaluate pharyngeal pressures, UES, esophageal, and LES pressures to aid in differential diagnosis of the UES dysfunction observed during VFSS from 02/02 (ie, how much may be related to poor mechanical traction force vs how much might be related to stiffness or increased tone of UES) and inform treatment focus re: continuing to address hyolaryngeal excursion/ pharyngeal contraction or if medical/surgical intervention is warranted to address stiffness/tone issue of cricopharyngeus. Patient may also benefit from laryngeal videostroboscopy with ENT to further inform voice treatment plan of care; VHI re-administered today with increase in overall score, indicating patient is continuing to experience reduced quality of life related to vocal functioning, although is able to maintain occupational duties despite vocal deficits. 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 Patient demonstrated comprehension with all recommendations regarding his treatment plan to address dysphagia and voice symptoms during session today. Patient continues to be appropriate candidate for continued BLACKSMITH APPRENTICE treatment for vocal function given continued motivation [...] baseline of 19 seconds. Plan: Subsequent session to address direct voice treatment as outlined, continue discussion re: resumptionof MDTP program once GI is consulted. Thank you for allowing me to take part in Mr. Rosario's care. Please feel free to contact me with any questions. Ella Brumfield MA [facility]SM[facility] APPRENTICE Speech-Language Pathologist [email or web address] documented in this encounter Plan of Treatment Upcoming Encounters Date Type Specialty Care Team Description 10/04/2021 Office Visit Dermatology Tg Velasco MD [facility] ER [address] [place], [place] [address] (Wo rk) documented as of this encounter Visit Diagnoses Diagnosis Vocal cord paralysis Paralysis of vocal cords or larynx, unsp ecified Tonsil cancer Malignant neoplasm of tonsil Dysphagia, oropharyngeal phase documented in this encounter Care Teams Acetylene Cylinder Packing Mixer Relationship Specialty Start Date End Date Gregg Garcia MD PCP - General General Internal Medicine 09/24/18 [address] [place] [address] documented as of this encounter
--- OUTSIDE RECORDS SUMMARY | 2021-09-13 17:56 | XMS_ITS | Encounter Summary ---
:1975 Author Organization [facility] [place] [address] Care Team Providers Name Role Phone Gregg Garcia MD Primary Care Provider Encounter Details Date Type Department Care Team Description 02/20/2020 Multidisciplinary Care Otolaryngology at [facility] Kindra David [facility] [place] [address] [place] [address] [place] [address] Social History Tobacco Use Types Packs/Day Years [...] encounter Progress Notes Timothy David MD - 02/20/2020 8:23 AM EST Head and Neck Tumor Board Note Site/Stage 3 Synopsis with pertinent exam findings ?? 44 [...] PET CT negative ?? Recent presentation to H with left hemitongue deviation ?? 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 ? * (Based on past studies and the information available at the time of presentation) Specific treatment to be undertaken must ultimaly be determined on an individual basis by the patient and those invoved in her/his treatment) ? documented in this encounter Plan of Treatment Upcoming Encounters Date Type Specialty Care Team Description 10/04/2021 Office Visit Dermatology Tg Velasco MD [facility] [address] [place], [place] [address] (Wo rk) documented as of this encounter Visit Diagnoses Not on filedocumented in this encounter Care Teams Electronic Coils Supervisor Relationship Specialty Start Date End Date Gregg Garcia MD PCP - General General Internal Medicine 09/24/18 [address] [place] [address] documented as of this encounter
--- OUTSIDE RECORDS SUMMARY | 2021-09-13 17:56 | XMS_ITS | Encounter Summary ---
:1975 Author Organization [place] [address] Care Team Providers Name Role Phone Gregg Garcia MD Primary Care Provider Encounter Details Date Type Department Care Team Description 04/01/2020 Office Visit Hematology/Oncology Ella Brumfield Voca l cord paralysis; at [facility] AIRCRAFT INSTRUMENT TESTER Dysphagia, oropharyngeal pha [address] [address] Social History Tobacco Use Types Packs/Day [...] Notes Treatment - Therapy - Ella Brumfield, AIRCRAFT INSTRUMENT TESTER - 04/01/2020 9:15 AM ESTSummary: AIRCRAFT INSTRUMENT TESTER Follow Up Speech Language Pathology Progress Note Patient Profile: Delvin Rosario is a 44 Y m with tonsillar cancer, s/p chemoradiation treatment. Returns to clinic for AIRCRAFT INSTRUMENT TESTER treatment to address dysphonia, dysphagia symptoms. 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 MRA negative. Per follow up withNeuroradiology, benefit of angiogram felt to be low in absence of pulsatile tinnitus. Patient has GI workup pending; continues to be followed by AIRCRAFT INSTRUMENT TESTER; potential benefit from ENT to maximize cord functioning. Subjective: Patient arrives to visit in relatively good spirits, states he has been having trouble this week talking on the phone which seems harder, has had to strain a lot more. States VFEs have beeneasier, but speech is difficult. No changes with swallowing, still having difficulties with both frequent coughing episodes and swallowing with ballooning sensation. Has noticed cough is triggered from tactile cues to left, posterior sublingual area; denies changes in sensation to lingual and/or oral cavity; coughing is reduced when eating only on right side. Has noticed increased shortness of breath this past week. Cough seems to be occurring less from speaking, more so from po intake. Also reports increased difficulties with straw propulsion, during which he will feel air escaping from nose. Objective: Pain: 0/10 today; during week, reports [...] intelligibility 90-100%. MDTP: On Hold pending GI workup Voice: Subjective: States he has noticed some gradual improvements since using VFEs, although states he feels things have definitely fluctuated and he is back to his 'original baseline' from about January when issues began; reports remaining conscious of vocal intensity does help with ability to access higher range, particularly with song he sings to his daughter in evening. Reviewed VFEs (reports continued difficulties with accessing [...] /m/ C+V words Voice Handicap Index [VHI]: (01/09/20) I-F: 17 II-P: 24 III-E: 13 Total: 54 - Moderate (03/18/20) I-F: 28 II-P: 31 III-E: 16 Total: 75 Severe Auditory/Perceptual: CAPE-V: (04/01/20) Roughness: 35/100 Breathiness: 40/100 Strain: 50 /100 Ptich: 10 /100 Loudness: 18/100 Overall Severity: 51/100 - Moderate Speech Rate: WNL Vocal Stability: Inconsistent Intonation: Mildly monotone Acoustic/Aerodynamic Measures: Pitch Range: Max F0: 295 Hz (increased range relative to 01/08 visit with AIRCRAFT INSTRUMENT TESTER, Max F0 at 233 Hz) Min F0: 95 Hz S:Z Ratio: 0.86 MPT: 11.6 seconds (stable) Assessment: Pt was seen today for a follow-up AIRCRAFT INSTRUMENT TESTER visit, has been participating in direct voice therapy with slow, gradual improvements in vocal control and stability; MDTP on hold pending results fromGI consult to further inform treatment focus re: continuing to address hyolaryngeal excursion/ pharyngeal contraction or if medical/surgical intervention is warranted to address stiffness/tone issue ofcricopharyngeus. Patient may also benefit from laryngeal videostroboscopy with ENT to further inform voice treatment plan of care; patient is continuing to experience reduced quality [...] determined with time and ongoing monitoring by ENT/AIRCRAFT INSTRUMENT TESTER and GI. Patient demonstrated comprehension with all recommendations regarding his treatment plan to address dysphagia and voice symptoms. Patient continues to be appropriate candidate for continued AIRCRAFT INSTRUMENT TESTER treatment for vocal function given continued motivation [...] discussion re: resumptionof MDTP program once GI workup has been completed. Thank you for allowing me to take part in Mr. Rosario's care. Please feel free to contact me with any questions. Ella Brumfield MA CCC-AIRCRAFT INSTRUMENT TESTER Speech-Language Pathologist [email or web address] documented in this encounter Plan of Treatment Upcoming Encounters Date Type Specialty Care Team Description 10/04/2021 Office Visit Dermatology Tg Velasco MD [facility] [address] [place], [place] [address] (Wo rk) documented as of this encounter Visit Diagnoses Diagnosis Vocal cord paralysis Paralysis of vocal cords or larynx, unsp ecified Dysphagia, oropharyngeal phase documented in this encounter Care Teams Flatwork Finisher Relationship Specialty Start Date End Date Gregg Garcia MD PCP - General General Internal Medicine 09/24/18 [address] [facility] [place] [address] documented as of this encounter
--- OUTSIDE RECORDS SUMMARY | 2021-09-13 17:56 | XMS_ITS | Encounter Summary ---
:1975 Author Organization [facility] [place] [address] Care Team Providers Name Role Phone Gregg Garcia MD Primary Care Provider Encounter Details Date Type Department Care Team Description 01/30/2020 Orders Only Radiation Oncology a t [facility] Mihir Vences MD Tonsil cancer [facility] [place] [address] RADIATION ONCOLOGY [phone] [place], [place] [address] (Wo rk) Social History Tobacco [...] Dermatology Tg Velasco MD [facility] [address] [place], [place] [address] (Wo rk) documented as of this encounter Results TSH (06/24/2020 8:38 AM EDT) P athologist Signature TSH 2.16 0.27 - 4.20 [facility] mcIU/mL [facility] Specimen Anatomical Collection Method Collection Time Receive d Time (Source) Location / / Volume Laterality Blood specimen 06/24/2020 8:38 AM 021 9:26 (specimen) EDT AM EDT Resulting Agency Comment Spec In Lab Mihir Vences MD CHEMISTRY ORDERABLES Performing Organization Address City/State/[place] [address] documented in this encounter Visit Diagnoses Diagnosis Tonsil cancer Malignant neoplasm of tonsil documented in this encounter Care Teams Dining Room Maid Relationship Specialty Start Date End Date Gregg Garcia MD PCP - General General Internal Medicine 09/24/18 9 [address] [place] [address] documented as of this encounter
--- OUTSIDE RECORDS SUMMARY | 2021-09-13 17:56 | XMS_ITS | Encounter Summary ---
:1975 Author Organization [facility] [address] Care Team Providers Name Role Phone Gregg Garcia MD Primary Care Provider Reason for Referral Diagnostic Test (Routine) - Closed Specialty Diagnoses / Procedures Referred By Contact Refer red To Contact Radiology Diagnoses Oropharynx cancer Timothy David MD [facility] Rad Mri Procedures MRI Angiogram Head wo & MRI Brain wwo Contrast MRI Brain wwo Contrast (Generic) [facility] [place] [address] [place] [address] Referral ID Status Reason Start Date Expiration Date Visits V isits Requested Authorized [id number] Closed Specialty 01/23/2020 07/21/2020 1 1 Service Requested Encounter Details Date Type Department Care Team Description 01/09/2020 Multidisciplinary Care Otolaryngology at [facility], Oropharynx cancer Committee [facility] Timothy Weinstein MD (Primary Dx) [facility] [address] [place] OTOLARYNGOLOG [address] [address] DEPT. [phone] [place] [address] Social History Tobacco Use Types Packs/Day Years [...] encounter Progress Notes Timothy David MD - 01/09/2020 11:59 PM EST Head and Neck Tumor Board Note [...] with contrast which was done 12/16/19 at [facility] Pathology Imaging Reviewed with neuroradiology as well: FIndings not representing jose eduardo disease but suspiciousthat the patient has a dural AV fistula Tumor Board Recommendations Plan MRI of the neck will be ordered ? * (Based on past studies and [...] Tg Velasco MD [facility] ER [address] [place], [place] [address] (Wo rk) documented as of this encounter Results MRI Angiogram Head wo & MRI Brain [...] Electronically signed by: Tanner Hardy [facility] ([phone]), at 01/20/2020 9:38 AM Narrative 01/20/2020 9:38 AM EST EXAMINATION: MRI [...] For questions regarding this report, please contact th e number below. 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
--- OUTSIDE RECORDS SUMMARY | 2021-09-13 17:56 | XMS_ITS | Encounter Summary ---
:1975 Author Organization [facility] [place] [address] Care Team Providers Name Role Phone Gregg Garcia MD Primary Care Provider Reason for Visit Diagnostic Test (Routine) - Closed Specialty Diagnoses / Procedures Referred By Contact Refer red To Contact Radiology Diagnoses Dysphagia, unspecified type Mia Peterson [facility] Rad Xray Procedures XR Fluoro Barium Swallow (Single Contrast) ELEVATOR OPERATOR SERVICE [address] [place] [address] [place] [address] Referral ID Status Reason Start Date Expiration Date Visits V isits Requested Authorized [id number] Closed Specialty 03/24/2020 09/21/2021 1 1 Service Requested Encounter Details Date Type Department Care Team Description 04/02/2020 Hospital Encounter XRay at [facility] Sieglinger, Dysphagia, [address] Mia Shannon APRN unspecified type [facility] [id number] Center [phone] [place] [address] Social History Tobacco Use Types Packs/Day Years [...] Tg Velasco MD [facility] ER [address] [place], [place] [address] (Wo rk) documented as of this encounter Procedures Procedure Name Priority Date/Time Associated Diagnosis Comme nts XR FLUORO BARIUM Routine 04/02/2020 2:28 PM Dysphagia, Resul ts for this SWALLOW (DOUBLE EST unspecified type procedur e are in CONTRAST) the results section. documented in this encounter Results XR Fluoro Barium Swallow (Double Contrast) (04/02/2020 2:28 PM EST) Anatomical Region Laterality Modality N/A Radio Fluoroscopy Specimen (Source) Anatomical Location Collection Method / Collectio n Time Received Time / Laterality Volume Impressions 04/02/2020 3:33 PM EST 1. ??Transient holdup of barium tablet in hypopharynx and at the level of aortic arch. 2. ??Mild asymmetry of the piriform sinu ses on phonation. 3. ??Mild pooling of contrast within the vallecula and piriform sinuses. I, Eliezer Pop MD, was present for this procedure I have personally reviewed the image(s) and the resident's interpretation and agree with the findings, Eliezer Pop MD at 04/02/2020 3:33 PM Thank you for letting us participate in the care of this patient. For questions regarding this report, please contact e number below. ? Electronically signed by: Eliezer Pop MD, [facility] ([phone]), at 04/02/2020 3:33 PM Narrative 04/02/2020 3:33 PM EST EXAMINATION: XR FLUORO BARIUM SWALLOW (DOUBLE CONTRAST) CLINICAL HISTORY: esophagram for dysphag ia, double contrast esophagram, and barium tablet. please change to both [id number] [id number] and [id number] (which are not visible in our system) TECHNIQUE: Double contrast esophagram was performed . Fluoroscopic spot films were obtained. 13 mm barium tablet was administered. Fluoroscopy time: 2.6 minutes COMPARISON: None FINDINGS: Patient swallowed barium without difficu lty throughout the examination. The esophagus is normal in course and calibe r, and is well distended and double contrast views. Mucosal pattern is kristyn l. Normal primary peristalsis. The GE junction is normally located. No hiatal hernia visualized during Valsalva maneuvers. No gastroesophageal reflux wa s elicited with provocative maneuvers. There is a B ring at the distal esophagu s, 16mm lumen. Mild asymmetry of the piriform sinuses o n phonation, with mild right downward tilt. There is mild residual pooling of contrast within the vallecula and piriform sinuses. On rapid sequence imag es there is no aspiration or penetration. The 13 mm barium tablet was transiently held in the hypopharynx, but passed with multiple swallows of water. The tablet w as again transiently held at the level of the aortic arch, but passed into the stomach with multiple swallows of water. Procedure Note Eliezer Pop MD - 04/02/2020Format ting of this note might be different from the original. EXAMINATION: XR FLUORO BARIUM SWALLOW (D OUBLE CONTRAST) CLINICAL HISTORY: esophagram for dysphag ia, double contrast esophagram, and barium tablet. please change to both [id number] [id number] and [id number] (which are not visible in our system) TECHNIQUE: Double contrast esophagram was performed . Fluoroscopic spot films were obtained. 13 mm barium tablet was administered. Fluoroscopy time: 2.6 minutes COMPARISON: None FINDINGS: Patient swallowed barium without difficu lty throughout the examination. The esophagus is normal in course and calibe r, and is well distended and double contrast views. Mucosal pattern is kristyn l. Normal primary peristalsis. The GE junction is normally located. No hiatal hernia visualized during Valsalva maneuvers. No gastroesophageal reflux wa s elicited with provocative maneuvers. There is a B ring at the distal esophagu s, 16mm lumen. Mild asymmetry of the piriform sinuses o n phonation, with mild right downward tilt. There is mild residual pooling of contrast within the vallecula and piriform sinuses. On rapid sequence imag es there is no aspiration or penetration. The 13 mm barium tablet was transiently held in the hypopharynx, but passed with multiple swallows of water. The tablet w as again transiently held at the level of the aortic arch, but passed into the stomach with multiple swallows of water. IMPRESSION 1. Transient holdup of barium tablet in hypopharynx and at the level of aortic arch. 2. Mild asymmetry of the piriform sinuse s on phonation. 3. Mild pooling of contrast within the v allecula and piriform sinuses. I, Eliezer Pop MD, was present for this procedure I have personally reviewed the image(s) and the resident's interpretation and agree with the findings, Eliezer Pop MD at 04/02/2020 3:33 PM Thank you for letting us participate in the care of this patient. For questions regarding this report, please contact e number below. Electronically signed by: Eliezer Pop MD, [facility] ([phone]), at 04/02/2020 3:33 PM Mia Peterson ELEVATOR OPERATOR SERVICE IMG FLUORO ORDERABLES documented in this encounter Visit Diagnoses Diagnosis Dysphagia, unspecified type documented in this encounter Administered Medications Inactive Administered Medications - up to 3 most recent administrations Medication Order MAR Action Action Date Dose Rate Site barium sulfate (E-Z Disk) tablet Given 04/02/2020 2:45 PM EST 70 0 mg 700 mg 700 mg, Oral, ONCE, 1 dose, On [place] 04/02/20 at 1445, Routine barium sulfate (E-Z-HD) 98% oral liquid 50 mL Given 04/02/2020 2:45 PM EST 25 mLs 50 mL, Oral, ONCE, 1 dose, On [place] 04/02/20 at 1445, Routine barium sulfate (Ezpaque) 60% (w/v) oral Given 04/02/2020 2:45 PM EST 100 mLs liquid 355 mL 355 mL, Oral, ONCE, 1 dose, On [place] 04/02/20 at 1445, Routine documented in this encounter Care Teams Dispatch Clerk Relationship Specialty Start Date End Date Gregg Garcia MD PCP - General General Internal Medicine 09/24/18 [address] [place] [address] documented as of this encounter
--- OUTSIDE RECORDS SUMMARY | 2021-09-13 17:56 | XMS_ITS | Encounter Summary ---
:1975 Author Organization [facility] [place] [address] Care Team Providers Name Role Phone Gregg Garcia MD Primary Care Provider Reason for Referral Diagnostic Test (Routine) - Closed Specialty Diagnoses / Procedures Referred By Contact Refer red To Contact Radiology Diagnoses Tonsil cancer Dysphagia, unspecified type Timothy David MD [facility] Rad Nuclear Med Procedures NM PET CT Standard Plus Head and Neck [facility] [place] [address] [place] [address] Referral ID Status Reason Start Date Expiration Date Visits V isits Requested Authorized [id number] Closed Specialty 05/21/2020 11/17/2020 1 1 Service Requested Encounter Details Date Type Department Care Team Description 05/19/2020 Office Visit Otolaryngology at Timothy Hernandes Tonsil cancer (Primary Dx); [facility] Latia Weinstein MD [place], [place] [address] [facility] [phone] [facility] OT[facility] DEPT. [place], [place] [address] Social History Tobacco Use Types [...] - - Weight 81.6 kg (180 lb) 05/19/2020 12:45 PM EDT Height 188 cm (6' 2) 05/19/2020 12:45 PM EDT Body Mass Index 23.11 05/19/2020 12:45 PM EDT documented in this encounter Progress Notes Timothy David MD - 05/19/2020 1:00 PM EDT Images from the original note [...] left sided nodes. Patient had new study .. showing Hypermetabolic lymph nodes in the left neck at level two (image 55, 61, 66 and 73) are again seen. These lymph nodes are slightly more intense than noted in the prior study. Discussion: morphologically not appearing to be larger. Consensus was to recommend neck CT with contrast which was done 12/16/[facility] at [facility] New onset left vocal cord weakness [...] fever/chills. Underwent new neck CT to reassess skulll base status. Past Medical History: Diagnosis Date ??? High cholesterol Past Surgical History: Procedure Laterality Date ??? PRO BIOPSY OROPHARYNX Bilateral 12/10/2018 BIOPSY, OROPHARYNX (WRVU 1.44) performed by Timothy David MD at [facility] MAIN OR ??? PRO DILATE ESOPHAGUS, OVER GUIDE N/A 04/22/2020 ESOPHAGEAL DILATION OVER GUIDE WIRE (WRVU 1.51) performed by Mil Beckwith MD at [facility] ENDOSCOPY ??? PRO LARYNGOSCOPY, DIRCT, OP SCOPE, BIOPSY Bilateral 12/10/2018 LARYNGOSCOPY, MICROSCOPE, WITH BIOPSY (WRVU 3.55) performed by Timothy David MD at [facility] MAIN OR ??? PRO NASAL ENDOSCOPY, DX Bilateral 12/10/2018 NASAL ENDOSCOPY DIAGNOSTIC, UNILATERAL OR BILATERAL (WRVU 1.1) performed by Timothy David MD at [facility] MAIN OR ??? PRO UPPER GI ENDOSCOPY, BIOPSY N/A 04/22/2020 EGD WITH BIOPSY (WRVU 2.49) performed by Mil eBckwith MD at [facility] ENDOSCOPY ??? PRO UPPER GI ENDOSCOPY, DIAGNOSTIC N/A 04/06/2020 EGD, UPPER GI ENDOSCOPY performed by Juan Carrillo MD at [facility] MAIN OR Patient Active Problem List Diagnosis Code ??? Neck mass R22.1 ??? 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 Drug-induced nausea and vomiting R11.2, T50.905A ??? Dysphagia, oropharyngeal phase R13.12 ??? Trismus R25.2 ??? Vocal cord paralysis J38.00 ??? Dysphagia R13.10 ??? Eosinophilic esophagitis K20.0 Current Outpatient Medications: ??? pantoprazole EC (Protonix) [...] on 05/19/2020), Disp: 21 tablet, Rfl: 0 No current facility-administered medications for this visit. Allergies Allergen Reactions ??? Magnesium Salicylate Rash [...] file Occupational History ??? 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 Smoking status: Former Smoker [...] Gatherings with Friends and Family: ??? Attends Ca[employer] Services: ??? Active Member of Clubs or [...] Content: Thought content normal. Judgment: Judgment normal. Neck CT reviewed wwith patient: Asymmetric fatty infiltration of the left hemitongue [...] destructive changes identified at the skull base ?? Visualized brain parenchyma are within normal limits. Paranasal sinuses and mastoid air cells are well aerated. Lung apices are clear. No lymphadenopathy within the visualized mediastinum. Assessment and Plan: In view of the patient's symptoms and for complete evaluation, a flexible laryngoscopy is indicated. +++++++++++++++++++++++++++++++++++++++++++++++++++++++++++++++++++ Procedure: Flexible Laryngoscopy Indications: Evaluation for mucosal lesion of the upper airway Procedure and findings: The nasal mucosae are topicalized with oxymetazoline/lidocaine anesthesia. The flexible endoscope is passed through the nasal cavities and evaluation of the nasopharynx, oropharynx and larynx is performed. All of the visualized mucosae are normal except for the following: Nasopharynx and oropharyngeal mucosa post radiation change, no visible lesion noted. There is loss of extension of the base of tongue on the left and pooling of secretions in the left piriform sinus relative to the right with frothy type mucus which extends to the posterior arytenoid space with paralysis of the left vocal cord with incomplete compensation from the right side. Subglottis appears normal. No tumor appreciated. 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 The question is if the persisting changes at the skull base are still representing tumor and after reviewing the films and neuroradiology, the plan would be todo a PET/CT and depending on the findings consider referral for an MRI and MRV of the cerebral circulation. I also discussed my clinical impression with Dr. Fuentes in radiation oncology and because of these unexplained neurologic changes we will also plan a neurology appointment/consultation, the point beingto see whether the patient should be anticoagulated. documented in this encounter Plan of Treatment Upcoming Encounters Date Type Specialty Care Team Description 10/04/2021 Office Visit Dermatology Tg Velasco MD [facility] [address] [place], [place] [address] (Wo rk) documented as of this encounter Results NM PET CT Standard [...] Electr onically signed by: Nilesh Brewster MD, [facility] ([phone]), at 06/02/2020 11:47 AM Narrative 06/02/2020 11:47 [...] tumor TECHNIQUE: Following IV injection of 18- bxazzx-8-zmbcuglhtfeh (FDG) a standard uptake of approximately 60 [...] proximal appendicular ske leton. Procedure Note Nilesh Brewster MD - 06/02/2020Formatti ng of this note [...] tumor TECHNIQUE: Following IV injection of 18- vkhgbp-0-jjxeccmlqvlq (FDG) a standard uptake of approximately 60 [...] radiologists. Electronically signed by: Nilesh Brewster MD, [facility] ([phone]), at 06/02/2020 11:47 AM Timothy David MD IMG PET ORDERABLES documented in this encounter Visit Diagnoses Diagnosis Tonsil cancer - Primary Malignant neoplasm of tonsil Dysphagia, unspecified type Tonsil cancer Malignant neoplasm of tonsil Dysphagia, unspecified type documented in this encounter Care Teams Stamp Redemption Clerk Relationship Specialty Start Date End Date Gregg Garcia MD PCP - General General Internal Medicine 09/24/18 [address] [place] [address] documented as of this encounter
--- OUTSIDE RECORDS SUMMARY | 2021-09-13 17:56 | XMS_ITS | Encounter Summary ---
:1975 [address] [facility] [place] [address] Care Team Providers Name Role Phone Gregg Garcia MD Primary Care Provider Encounter Details Date Type Department Care Team Description 12/25/2019 Telephone Otolaryngology at [facility] [place] [address] Social History Tobacco Use Types Packs/Day [...] this encounter Miscellaneous Notes Telephone Encounter - Gladys Lao - 12/25/2019 1:19 PM EDT Called pt to schedule a telehealth visit with BG in a week. LVM for pt to call back. documented in this encounter Plan of Treatment Upcoming Encounters Date Type Specialty Care Team Description 10/04/2021 Office Visit Dermatology Tg Velasco MD [facility] [address] [place], [place] [address] (Wo rk) documented as of this encounter Visit Diagnoses Not on filedocumented in this encounter Care Teams Rotor Coil Taper Relationship Specialty Start Date End Date Gregg Garcia MD PCP - General General Internal Medicine 09/24/18 [address] [place] [address] documented as of this encounter
--- OUTSIDE RECORDS SUMMARY | 2021-09-13 17:56 | XMS_ITS | Encounter Summary ---
:1975 Author Organization [facility] [place] [address] Care Team Providers Name Role Phone Gregg Garcia MD Primary Care Provider Reason for Visit Reason Onset Date Comments Follow-up 03/23/2020 Encounter Details Date Type Department Care Team Description 03/23/2020 Telephone Hematology/Oncology at Manuela Rivera RN Follow-up [address] [phone] Social History Tobacco Use [...] this encounter Miscellaneous Notes Telephone Encounter - Manuela Matute RN - 03/23/2020 12:[address] George reviewed pt's labs from 03/18/20. They were fine this was reported to patient. documented in this encounter Plan of Treatment Upcoming Encounters Date Type Specialty Care Team Description 10/04/2021 Office Visit Dermatology Tg Velasco MD [facility] [address] [place], [place] [address] (Wo rk) documented as of this encounter Visit Diagnoses Not on filedocumented in this encounter Care Teams Tack Maker Relationship Specialty Start Date End Date Gregg Garcia MD PCP - General General Internal Medicine 09/24/18 [address] [place] [address] documented as of this encounter
--- OUTSIDE RECORDS SUMMARY | 2021-09-13 17:56 | XMS_ITS | Encounter Summary ---
:1975 Author Organization [facility] [place] [address] Care Team Providers Name Role Phone Gregg Garcia MD Primary Care Provider Encounter Details Date Type Department Care Team Description 01/29/2020 Hospital [place] [address] Social History Tobacco Use Types Packs/Day [...] Visit Dermatology Tg Velasco MD [facility] [address] [place], [place] [address] (Wo rk) documented as of this encounter Procedures Procedure Name Priority Date/Time Associated Diagnosis Comme nts COVID-19 PCR Routine 01/29/2020 9:11 AM Results f or this EST procedure are i n the results section . documented in this encounter Results COVID-19 PCR (01/29/2020 9:11 AM EST) [facility] Method Time Signature SARS-CoV-[address] Detected [facility] Comment: This result should be interpreted in com bination with the clinical observations, patient history and epidem iological information. For testing of asymptomatic individuals, assay performa nce characteristics and clinical utility have not been evaluated. Testing for SARS-CoV-2 (Severe acute respiratory syndrome coronavirus 2, form erly known as 2019 novel coronavirus or 2019-nCoV) to aid in the diagnosis of CO VID-19 is performed using the Aptima SARS Co-V-2 Assay on the [employer] System (Telepathy.) as authorized by the FDA issued Emergency Use Authorization ( EUA). This assay is intended for In-vitro Diagnostic (IVD) use with nasop haryngeal swabs collected from individuals meeting the CDC criteria for testing. The assay is performed based on the instructions for use and addition al guidance provided by the FDA. Testing is performed in the Microbiology Laboratory within the Department of Pathology and Laboratory Medicine at [facility], certified under the Clinical Laboratory Improvement Amendments of 1988 (CLIA), 42 U.S.C. section 263a, to perform high- complexity tests. Assay performance has been verified according to clinical labo ratory regulatory requirements. Test results are provided above. A resul t of Not Detected indicates that the viral RNA target is not present but does not preclude SARS-CoV-2 infection. False negative results may occur if a sp ecimen is improperly collected, transported or handled; if amplification inhibitors are present; or if inadequate numbers of viral particles ar e present in the specimen. A result of Detected suggests a current or recent infection and the patient is presumed to be infected. Positive and negative pr edictive values for this test are highly dependent on disease prevalence. A result of Invalid indicates the inability to conclusively determine the presence or absence of SARS-CoV-2 RNA in the sample which can be due to a vari ety of factors. ??Collection of a new sample for repeat testing is recommended in the case of an invalid result. CDC COVID-19 criteria for testing on hum an specimens and clinical management guidance information are available at e CDC Coronavirus Disease 2019 (COVID-19) webpage under Information fo r Healthcare Professionals (https://www.cdc.gov/coronavirus/2019-nc ov/hcp/index.html). SARS-Cov-2 RNA Source SENIOR PRODUCT MANAGER Swab [facility] Specimen (Source) Anatomical Collection Method Collection Time Re ceived Time Location / / Volume Laterality Nasopharyngeal swab Other / Unknown 01/29/2020 9:11 (specimen) AM EST 3:57 AM EST Resulting Agency Comment Spec In Lab Juan Lopes MD MICROBIOLOGY - GENERAL ORDER [facility] Performing Organization Address City/State/ZIP [place] [address] documented in this encounter Visit Diagnoses Not on filedocumented in this encounter Care Teams Bunghole Borer Relationship Specialty Start Date End Date Gregg Gacria MD PCP - General General Internal Medicine 09/24/18 [address] [place] [address] documented as of this encounter
--- OUTSIDE RECORDS SUMMARY | 2021-09-13 17:56 | XMS_ITS | Encounter Summary ---
:1975 Author Organization [facility] [place] [address] Care Team Providers Name Role Phone Gregg Garcia MD Primary Care Provider Encounter Details Date Type Department Care Team Description 04/08/2020 Office Visit Hematology/Oncology Ella Brumfield Voca l cord paralysis; at [facility] POLICE WORKER Dysphagia, oropharyngeal pha se [address] [place] [phone] Social History Tobacco Use Types Packs/Day [...] Notes Treatment - Therapy - Ella Brumfield, POLICE WORKER - 04/08/2020 9:30 AM ESTSummary: POLICE WORKER Treatment Note Speech Language Pathology Progress Note Patient Profile: Delvin Rosario is a 44 Y m with tonsillar cancer, s/p chemoradiation treatment. Returns to clinic for POLICE WORKER treatment to address dysphonia, dysphagia symptoms. Interval History: Patient has had endoscopy with GI which showed mild systemic disease and no functional deficits identified on 04/06; scheduled GI follow up for 04/22 to further explore etiology/rule outfurther stricture; continues to be followed by POLICE WORKER with slow gradual progress but increasing difficulties with dyspnea and coughing fits, occasional emesis; potential benefit from ENT to maximize cord functioning. Subjective: Patient arrives to visit in relatively good spirits, is aware of plan for additional procedure on 04/22 at [facility] to further rule out possible stricture. Emesis occurring more frequently,states when I have the cough I can't breath - this also happens during po intake. Has noticed increased shortness of breath this past week. Cough seems to be occurring less from speaking, more so from po intake (more intense coughing fits occur with po intake) Reports increased difficulties from previous week with straw propulsion, during which he will feel massive air escaping from nose, occasional will feel nasal regurgitation with solids foods. Admits he has not been as aware of swallowing precautions towards end of meals, gets distracted or too comfortable during which he has more difficulties with coughing episodes. Patient states he would like to follow up with ENT sometime soon, after GI visit(s). SOVT has been difficult due to nasal air escape; feels increasing dyspnea upon exertion, still having significant difficulties with projection (took daughter skiing, hard time providing instructions to her in loud env ironment/from a distance; states he may be interested in voice amplification device for certain scenarios). He is feeling like VFEs are less smooth than normal, feels more hoarse Cough continues to be triggered from tactile sensation to left posterior sublingual area; denies changes in sensation to lingual and/or oral cavity; coughing is reduced when eating only on right side which has been helpful over past week. Objective: Pain: 0/10 today Respiratory Status: Room air Current Diet: No [...] speech intelligibility 90-100%. MDTP: On Hold pending further GI workup Voice: Subjective: States VFEs have felt relatively stable, still having difficulties with upper range/projection Reviewed VFEs; benefits from cues such as easy and above a whisper as well as taking things slower during VFEs 9:30 Patient able to maintain less breathy and consistent phonation without vocal breaks during 2-3 syllable initial nasal consonant words +-++-+++ Short, initial nasal consonant phrase --- Voice Handicap Index [VHI]: (01/09/20) I-F: 17 [...] (increased range relative to 01/08 visit with POLICE WORKER, Max F0 at 233 Hz) Min F0: 95 Hz S:Z Ratio: 0.86 MPT: 6.5 seconds (reduced) With SOVT during inhale: improves to 8.2 s, 8.6s, 8.8 s, still reduced relative to 04/01 Reports air escape from nose when inhaling through straw (velopharyngeal weakness?) and cough sensation during inhale Assessment: Pt was seen today for a follow-up POLICE WORKER visit, has been participating in direct voice therapy with slow, gradual improvements in vocal control and stability; MDTP/direct swallow treatment on hold pending further GI workup to further inform treatment focus re: continuing to address hyolaryngeal excursion/ pharyngeal contraction or if medical/surgical intervention is warranted to address stiffness/tone issue of cricopharyngeus. Education provided re: 'rescue breathing' technique to trial (ie qucik sniff>exhale through pursed lips), continued recommendations for alternating solids/liquids, solid food texture modifications Patient to likely benefit from ENT follow up (may consider laryngeal videostroboscopy) to further inform voice treatment plan of care; patient is continuing to experience reduced quality of life related to vocal functioning, although is able to maintain occupational duties despite vocal deficits. Pharyngeal and pharyngoesophageal impairments, as well as VF immobility, may at least partially be attributed to CN palsy s/p XRT (Arnulfo, et al 2011). 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 Patient demonstrated comprehension with all recommendations regarding his treatment plan to address dysphagia and voice symptoms. Patient continues to be appropriate candidate for continued POLICE WORKER treatment for vocal function given continued motivation [...] outlined, continue discussion re: resumptionof MDTP program and/or additional swallowing exercises given outcomes from pending GI workup. Thank you for allowing me to take part in Mr. Rosario's care. Please feel free to contact me with any questions. Ella Brumfield MA [facility]-POLICE WORKER Speech-Language Pathologist [email or web address] documented in this encounter Plan of Treatment Upcoming Encounters Date Type Specialty Care Team Description 10/04/2021 Office Visit Dermatology Tg Velasco MD [facility] [address] [place], [place] [address] (Wo rk) documented as of this encounter Visit Diagnoses Diagnosis Vocal cord paralysis Paralysis of vocal cords or larynx, unsp ecified Dysphagia, oropharyngeal phase documented in this encounter Care Teams Acute Care Registered Nurse Relationship Specialty Start Date End Date Gregg Garcia MD PCP - General General Internal Medicine 09/24/18 [address] [place] [address] documented as of this encounter
--- OUTSIDE RECORDS SUMMARY | 2021-09-13 17:56 | XMS_ITS | Encounter Summary ---
:1975 Author Organization [facility] [place] [address] Care Team Providers Name Role Phone Gregg Garcia MD Primary Care Provider Encounter Details Date Type Department Care Team Description 03/18/2020 Office Visit Radiation Oncology at [facility] Mihir MD Tonsil cancer [address] RADIATION ONCOLOGY [place], [place] [phone] Social History Tobacco Use Types Packs/Day Years [...] Sign Reading Time Taken Comments Blood Pressure 121/77 03/18/2020 10:20 AM EST Pulse 68 03/18/2020 10:20 AM EST Temperature 37 ??C (98.6 ??F) 03/18/2020 10:20 AM EST Respiratory Rate 18 03/18/2020 10:20 AM EST Oxygen Saturation 99% 03/18/2020 10:20 AM EST Inhaled Oxygen Concentration - - Weight 85.5 kg (188 lb 6.4 oz) 03/18/2020 10:20 AM with shoes EST Height - - Body Mass Index 24.19 02/07/2020 9:20 AM EST documented in this encounter Progress Notes Mihir Vences MD - 03/18/2020 10:00 AM EST Images from the original note were not included. Radiation Oncology Follow Up Patient Visit PATIENT NAME: Delvin Rosario DATE OF : 1975 INTERVAL HISTORY ONCOLOGIC HISTORY DIAGNOSIS / TREATMENT OVERVIEW?? 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 Definitive LENS INSPECTOR completed 03/11/19. ?? TREATMENT DETAILS Treatment Intent [...] concern that cerebral angiogram may be helpful. THOMAS 02/20/20: New onset left vocal cord weakness with hoarseness, no aspiration. This could be a radiation related injury however vascular status at skull base raises concern that cerebral angiogram may be helpful. Time from therapy completion: ~ 1 year Currently, he has the following symptoms: Symptom Description Intervention Pain Pain associated with base of skull on left, occasional but multiple times per day. When it occurs it is severe, and last for 5-10 seconds, and then subsides. Sensation of tightness. Dysphagia Working with CARE CONSULTANT regarding swallowing. He tolerates most foods, but requires a great deal of water. Occasionally he [...] constant. Smoking Status Not smoking Voice Changes Denies Other Energy is moderate ECOG PS: 0 Grade ECOG PERFORMANCE STATUS 0 Fully active, [...] totally confined to bed or chair EXAM There were no vitals filed for this visit. Physical Exam Constitutional: Appearance: He is well-developed. [...] Behavior normal. Procedures: HISTORY Allergies as of 03/18/2020 - Review Complete 02/07/2020 Allergen Reaction Noted ??? Magnesium salicylate Rash 10/11/2018 Past Medical History: Diagnosis Date ??? High cholesterol Past Surgical History: Procedure Laterality Date ??? PRO BIOPSY OROPHARYNX Bilateral 12/10/2018 BIOPSY, OROPHARYNX (WRVU 1.44) performed by Timothy David MD at [facility] MAIN OR ??? PRO LARYNGOSCOPY, DIRCT, OP SCOPE, BIOPSY Bilateral 12/10/2018 LARYNGOSCOPY, MICROSCOPE, WITH BIOPSY (WRVU 3.55) performed by Timothy David MD at [facility] MAIN OR ??? PRO NASAL ENDOSCOPY, DX Bilateral 12/10/2018 NASAL ENDOSCOPY DIAGNOSTIC, UNILATERAL OR BILATERAL (WRVU 1.1) performed by Timothy David MD at [facility] MAIN OR Social History Socioeconomic History ??? Marital status: Spouse name: Bonnie ??? Number of children: 2 ??? Years of education: Not on file ??? Highest education level: Not on file Occupational History ??? 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 Financial resource strain: Not on file ??? Food insecurity Worry: Not on file Inability: Not on file ??? Transportation needs Medical: Not on file Non-medical: Not on file Tobacco Use ??? Smoking status: Former Smoker Packs/day: 0.50 Years: 3.00 Pack years: 1.50 Types: Cigarettes Quit date: 2000 Years since quittin.0 ??? Smokeless tobacco: Never Used Substance and Sexual Activity ??? Alcohol use: Yes Frequency: 2-4 times a month Drinks per session: 1 or 2 Comment: once or twice a week ??? Drug use: Not Currently ??? Sexual activity: Not on file Comment: deferred Lifestyle ??? Physical activity Days per week: Not on file Minutes per session: Not on file ??? Stress: Not on file Relationships ??? Social connections Talks on phone: Not on file Gets together: Not on file Attends moravian service: Not on file Active member of club or organization: Not on file Attends meetings of clubs or organizations: Not on file Relationship status: Not on file ??? Intimate partner violence Fear of current or ex partner: Not on file Emotionally abused: Not on file Physically abused: Not on file Forced sexual activity: Not on file Other Topics Concern ??? Not on file Social History Narrative ??? Not on file Family History Problem Relation [...] to Visit Medication Sig Dispense Refill ??? benzonatate (TESSALON) 200 mg Capsule Take 1 capsule by mouth 3 times daily as needed for Cough.21 capsule 3 ??? cholecalciferol, Vitamin D3, 1,000 unit [...] Disease Status: EILEEN on clinical exam. He has some mildly FDG avid nodes in the left neck that are not enlarged morphologically. After discussion at TB, we will do close surveillance. ?? We discussed that he is still at risk of recurrence and requires continued surveillance Toxicity: ?? 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 Extensive imaging demonstrates no findings indicative of recurrent malignancy, and we are concerned that these toxicities are related to radiotherapy given the absence of findings on imaging. CN deficits would be a very rare complication of standard fractionation radiotherapy to 70 Gy, but case reports exist. It was mentioned at the last tumor board than an AV fistula is possible as an etiology of these findings, and that an angiogram may be beneficial even though the MRA was negative. I have discussed this issue with Neuroradiology, and in the absence of pulsatile tinnitus the benefit of an angiogram was felt to be low. We reviewed these issues in detail. He will continue to benefit from CARE CONSULTANT intervention and potential ENT intervention to maximize cord function. ?? Other acute toxicities as expected ?? Lymphedema: continue home PT ?? Dental: no dentistry visit recently, using fluoride. Emphasized need for regular dental follow up. ?? Thyroid Function: WNL today FU: follow per HN grid documented in this encounter Plan of Treatment Upcoming Encounters Date Type Specialty Care Team Description 10/04/2021 Office Visit Dermatology Tg Velasco MD [facility] [address] [place], [place] [address] (Wo rk) documented as of this encounter Results Creatinine (06/24/2020 8:38 AM EDT) P athologist Signature Creatinine 1.13 0.80 - BONNIE LUKAS 1.50 mg/dL [facility] Estimated GFR 78 >=60 BONNIE GAYTAN mL/min/1.7 [facility] 3 ?? HOSPITAL LAB[facility]ORY Comment: This patient? s estimated glomerular [...] Organization Address City/State/ZIP [place] [address] documented in this encounter Visit Diagnoses Diagnosis Tonsil cancer Malignant neoplasm of tonsil documented in this encounter Care Teams Sheet Metal Welder Relationship Specialty Start Date End Date Gregg Garcia MD PCP - General General Internal Medicine 09/24/18 [address] [place] [address] documented as of this encounter
--- OUTSIDE RECORDS SUMMARY | 2021-09-13 17:56 | XMS_ITS | Encounter Summary ---
:1975 Author Organization [facility] [place] [address] Care Team Providers Name Role Phone Gregg Garcia MD Primary Care Provider Encounter Details Date Type Department Care Team Description 04/07/2020 Telephone [place] [facility] [place] [address] Social History Tobacco Use Types Packs/Day Years [...] this encounter Miscellaneous Notes Telephone Encounter - Denia Caruso Victoria - 04/07/2020 9:09 AM EST Delvin Rosario [id number] Diagnosis/Indication: EGD 1. Have you ever had a/an Upper Endoscopy before? Yes: Date 04/06/20 If yes, did you have any problems with the procedure? No What type of sedation was used: General Anesthesia 2. Do you take any Blood Thinners? No 3. Do you have a Pacemaker [...] sedation or anesthesia? No 9. Do you have a c-pap machine or oxygen tank? Neither 10. Do you take prescription narcotic pain medications, including suboxone or methodone? No 11. Do you have a preference regarding the gender of your provider? No Preference 12. Is there any other information you would like to give us to aid in scheduling? No 13. Say to patient: You must [...] calculated from the following: Height as of 04/06/20: 188 cm (6' 2). Weight as of 04/06/20: 81.6 kg (180 lb). Age:44 y.o. documented in this encounter Plan of Treatment Upcoming Encounters Date Type Specialty Care Team Description 10/04/2021 Office Visit Dermatology Tg Velasco MD [facility] [address] [place], [place] [address] (Wo rk) documented as of this encounter Visit Diagnoses Not on filedocumented in this encounter Care Teams Nurse Staff Community Health Relationship Specialty Start Date End Date Gregg Garcia MD PCP - General General Internal Medicine 09/24/18 [address] [place] [address] documented as of this encounter
--- OUTSIDE RECORDS SUMMARY | 2021-09-13 17:56 | XMS_ITS | Encounter Summary ---
:1975 Author Organization [facility] [place] [address] Care Team Providers Name Role Phone Gregg Garcia MD Primary Care Provider Encounter Details Date Type Department Care Team Description 04/06/2020 Surgery Operating Room Juan [place] E GD, UPPER GI ENDOSCOPY Azul Verde MD [address] [place] [phone] GASTROENTEROLOGY [place], [place] [address] (Wo rk) Social History Tobacco [...] PHYSICIAN AT : (FOR AFTER HOURS CALL [phone] AND ASK FOR PHYSICIAN COVERING FOR YOUR DOCTOR TO BE PAGED) ENDOSCOPY/ERCP ??? Fever or chills ??? Severe abdominal pain or bloating ??? Vomiting blood ??? Difficulty breathing or swallowing ??? Pain in chest ??? Any questions or problems SMOKING CESSATION INFORMATION: ??? [place] QUITLINE: ??? [place] QUITLINE: ??? [email or web address] If you smoke, stop now! MAKE SURE [...] Velasco MD [facility] ER [address] [place], [place] [address] (Wo rk) documented as of this encounter Procedures Procedure Name Priority Date/Time Associated Diagnosis [facility] EGD, UPPER GI 04/06/2020 10:30 AM Dysphagia, ENDOSCOPY EST unspecified type UPPER GI ENDOSCOPY Routine 04/06/2020 10:29 AM Re sults for this EST procedure are i n the results section. documented in this encounter Results UPPER GI ENDOSCOPY (04/06/2020 10:29 AM EST) Component Value Ref Test Analysis Performed At [facility] Method Time Signature UPPER GI [facility] ENDOSCOPY Endoscopy Procedure Date: 04/06/2020 10:29 AM ? Patient Name: Delvin Rosario ? Date of : 1975 ? Age: 44 ? Order #: [id number] ? Instrument Name: [id number] ? Procedure: ? Upper GI endoscopy Indications: [...] ? the physician, the nurse, the ? exercise equipment repair technician and the technicia n in the ? [...] endoscopy with in 1-2 ? weeks at [facility] ? Center with advanced endoscop ist. ? - Follow up in clinic as sche duled ? with Mia Eckertgrant WHIPPER in ? Gastroenterology Clinic. ? Procedure Code(s): ?? --- Professional --- ? 25733, Esophagogastroduodenos copy, ? flexible, transoral; diagnost ic, ? including collection of speci men(s) ? by brushing or washing, when ? performed (separate procedure ) CPT copyright 2019 [employer]. All rights reserved. The codes documented in this report are preliminary and upon wound care technician review may be revised to meet current [...] encounter Visit Diagnoses Diagnosis Dysphagia Dysphagia, unspecified Dysphagia, unspecified type documented in this encounter [...] Procedure) documented in this encounter Care Teams Multifold Operator Relationship Specialty Start Date End Date Gregg Garcia MD PCP - General General Internal Medicine 09/24/18 [address] [place] [address] documented as of this encounter
--- OUTSIDE RECORDS SUMMARY | 2021-09-13 17:56 | XMS_ITS | Encounter Summary ---
:1975 Author Organization [facility] [place] [address] Care Team Providers Name Role Phone Gregg Garcia MD Primary Care Provider Encounter Details Date Type Department Care Team Description 05/06/2020 Office Visit Hematology/Oncology Ella Brumfield Voca l cord paralysis; at [facility] STAFFING ANALYST Dysphagia, oropharyngeal pha se; [address] [place] [address] Tonsil cancer; [place], [place] [id number] Social History Tobacco Use Types Packs/Day Years [...] Miscellaneous Notes Treatment - Therapy - Ella Brumfield SLP - 05/06/2020 9:15 AM ESTSummary: STAFFING ANALYST Treatment Note Speech Language Pathology Treatment Note Patient Profile: Delvin Rosario is a 44 Y m with tonsillar cancer, s/p chemoradiation treatment. Returns to clinic for STAFFING ANALYST treatment to address dysphonia, ongoing dysphagia symptoms. [...] appearing and dilation with GI (04/22). Subjective: Patient reports he has noticed improved dyspnea relative to two weeks ago (reports he was almost unable to talk and very difficult to breathe, lightheaded/dizzy) but is still concerned withwhat is causing his cough, has been on steroids which has helped with frequency of coughing, continues with rescue breathing technique (quick sniff+exhale through pursed lips) to aid in regaining breath control during coughing fits, however has noticed fewer episodes of coughing fits. Reports continued difficulties with swallowing despite dilation; reports GI has discussed eosinophilic esophagitis with him, and he has been on PPI (Pantoprazoole) BID for about a week. States his hope is that because he had trouble swallowing prior to his cancer, that this is hopefully nothing new. Objective: Pain: 04/15 Respiratory Status: Room air Current Diet: No diet orders on file Feeding / Oral Care Status: Pt is independent Cognitive-Linguistic Status: alert, oriented to person, place, and time Command Following: Follows multi-step commands Positioning: Pt up to chair Oral / Laryngeal Mechanism Clinical Assessment: Mod L lingual hemiatrophy; ?possible new velopharyngeal atrophy, velum is symmetrical upon phonation; vocal quality is moderate-severely rough, moderately breathy and moderately-severely strained, speech intelligibility 90-100%. MDTP: On Hold pending further GI workup, may consider FEES or VFSE/MBSS Voice: Subjective: States VFEs and carry over exercises have felt relatively stable, still having difficulties with upper range/projection and carrying over into everyday speech because of coughing fits Reviewed VFEs; continued use of LMRVT today with progressive hierarchy, ie hum>chant>words>phrases; discussed compensatory energy conservation techniques for speaking tasks (ie conscious increase in frequency of breaths throughout given phrase, conversation, etc) Voice Handicap Index [VHI]: (01/09/20) I-F: 17 II-P: 24 III-E: 13 Total: 54 - Moderate (03/18/20) I-F: 28 II-P: 31 III-E: 16 Total: 75 Severe Auditory/Perceptual: CAPE-V: (04/01/20) Roughness: 35/100 Breathiness: 40/100 Strain: 50 /100 Ptich: 10 /100 Loudness: 18/100 Overall Severity: 51/100 - Moderate (04/15/20) Roughness: 50/100 Breathiness: 55/100 Strain: 76 /100 Ptich: 30 /100 Loudness: 60/100 Overall Severity: 75/100 - Moderate-Severe Speech Rate: WNL Vocal Stability: Inconsistent Intonation: Mildly monotone Acoustic/Aerodynamic Measures: MPT: 5.2 seconds (reduced) Assessment: Pt was seen today for a follow-up STAFFING ANALYST visit, has been participating in direct voice therapy with slow, gradual improvements in vocal control and stability/resonant placement during sessions, however vocal quality continues to be significantly strained, breathy, and more hoarse relative to typical baseline; patient continues to be stimulable for LMRVT technique to initiate less roughness and improved stability at short phrase and eventual conversation level. Patient demonstrated comprehension with all recommendations regarding his treatment plan to address dysphagia and voice symptoms. Patient continues to be appropriate candidate for continued STAFFING ANALYST treatment for vocal function given continued motivation [...] voice treatment as outlined, continue discussion re: additionalswallowing exercises and/or trial of additional compensatory techniques once ENT imaging is performed/reviewed (scheduled for 05/19 at this time, as well as follow up with Radiation Oncology). Thank you for allowing me to take part in Mr. Rosario's care. Please feel free to contact me with any questions. Ella Brumfield MA [facility]-STAFFING ANALYST Speech-Language Pathologist [email or web address] documented in this encounter Plan of Treatment Upcoming Encounters Date Type Specialty Care Team Description 10/04/2021 Office Visit Dermatology Tg Velasco MD [facility] [address] [place], [place] [address] (Wo rk) documented as of this encounter Visit Diagnoses Diagnosis Vocal cord paralysis Paralysis of vocal cords or larynx, unsp ecified Dysphagia, oropharyngeal phase Tonsil cancer Malignant neoplasm of tonsil Chronic cough Cough documented in this encounter Care Teams Aerodynamics Professor Relationship Specialty Start Date End Date Gregg Garcia MD PCP - General General Internal Medicine 09/24/18 [address] [place] [address] documented as of this encounter
--- OUTSIDE RECORDS SUMMARY | 2021-09-13 17:56 | XMS_ITS | Encounter Summary ---
:1975 Author Organization [facility] [place] [address] Care Team Providers Name Role Phone Gregg Garcia MD Primary Care Provider Reason for Visit Reason Comments Follow-up Oropharynx cancer history Encounter Details Date Type Department Care Team Description 12/05/2019 Office Visit Otolaryngology at Bel[facility] Zambrano, Tonsil cancer [facility] [place] [address] [facility] [phone] Otolaryngology [place], [place] [address] (Wo rk) Social History Tobacco [...] Sign Reading Time Taken Comments Blood Pressure 118/73 12/05/2019 11:09 AM EDT Pulse 60 12/05/2019 11:09 AM EDT Temperature - - Respiratory Rate - - Oxygen Saturation - - Inhaled Oxygen Concentration - - Weight 80.7 kg (178 lb) 12/05/2019 11:09 AM EDT Height 185.4 cm (6' 1) 12/05/2019 11:09 AM EDT Body Mass Index 23.48 12/05/2019 11:09 AM EDT documented in this encounter Progress Notes Belén Zaidi PA - 12/05/2019 11:[address] [facility] [place] FO[place] NOTE Delvin Rosario is a 44 y.o. 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 Definitive FISHER CLAM completed 03/11/19. ?? Pertinent history: ?? 1 y hx of left neck mass with recent onset of dysphagia x 2 months ?? Denies referred otalgia/voice/speech/swallowing issues ?? 20 lb unintentional weight loss ?? Former smoker x 3 years, some EtOH, denies IVDA, negative PMHx ?? Exam: L superior zone 2 mass extending into zone 3. ?? Left tonsil full, normal R tonsil ?? Normal FNL Imaging: pre-treatment PET-CT:??Hypermetabolic lymphadenopathy is present in the left neck at levels 2A, 2B, 1B, ??and 3. Hypermetabolic lymph nodes are present in the right neck at levels 2A and 3. Diffuse, uniform and symmetric activity is present in the palate and tonsils bilaterally are all likely normal physiologic activity. He underwent PET/CT on 06/13/19 which showed no evidence of residual disease. More recently noted to have leftward tongue deviation, and an MRI neck was performed with findings suggestive of denervation atrophy of the left tongue, and direct laryngoscopy showed no new concerning lesions. At the Head andNeck tumor Board meeting on 08/22/19, there was a recommendation to move up his upcoming PET/CT and was noted to have resolution of a right hypermetabolic node, but the presence of new hypermetabolic, non-pathologically enlarged, nodes in the left neck at level 2. It was felt that the nodes in the leftneck were likely reactive nodes. He underwent a PET/CT on 11/29/19, the left neck nodes were noted shamika more avid, though still not pathologically enlarged, and thus concerning for metastatic disease. At the Head and Neck Tumor Board meeting today, it was felt that a contrast-enhance CT neck would be helpful to further characterize the nodes and would be helpful for a possible future sampling of the tissue by Interventional Radiology. New issues since last visit: Has a chronic cough for a few months. Feels comes form his chest/throat. Worse when eating or drinking. Also noting muscle spasm in his neck. Has noted for about 1-2 months. Not very frequent, so not too concerned if doesn't get worse. Like getting hit with a cattle prod. Is seeing PT for his lymphedema, but not recently. Dysphagia symptoms unchanged. No pain with swallowing. No change in voice. No difficulty with breathing. No otalgia. No hemoptysis. Dry mouth has been stable. No new numbness in the tongue or throat. No new trismus. No change in sense of taste. Tongue deviation is unchanged. PROBLEM LIST Patient Active Problem List Diagnosis Code ??? Neck mass R22.1 ??? 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 Drug-induced nausea and vomiting R11.2, T50.905A ??? Other dysphagia R13.19 ??? Trismus R25.2 PAST MEDICAL HISTORY Past Medical History: Diagnosis Date ??? High cholesterol SOCIAL HISTORY Social History Tobacco Use ??? Smoking status: Former Smoker Packs/day: 0.50 Years: 3.00 Pack years: 1.50 Types: Cigarettes Quit date: 2000 Years since quittin.7 ??? Smokeless tobacco: Never Used Substance Use Topics ??? Alcohol use: Yes Frequency: 2-4 times a month Drinks per session: 1 or 2 Comment: once or twice a week MEDICATIONS Current Outpatient Medications on File Prior to Visit Medication Sig Dispense Refill ??? cholecalciferol, Vitamin D3, 1,000 unit Tablet Take 1,000 Units by mouth daily. ??? atorvastatin (LIPITOR) 40 mg Tablet 0 ??? multivitamin (THERAGRAN) Tablet Take 1 tablet by mouth daily. ??? ubidecarenone (COENZYME Q10) 100 mg Tablet Take by mouth daily. No current facility-administered medications on file prior to visit. ALLERGIES Allergies Allergen Reactions ??? Magnesium Salicylate Rash ROS 8 point Review of Systems was normal except for pertinent positives and negatives included in the History of Present Illness. PHYSICAL EXAMINATION Physical Examination: VITALS - There were no vitals taken for this visit. GENERAL - Well dressed and well nourished. - Breathing comfortably without stridor. - No acute distress. FACE - Full and symmetric facial movement. - No dysmorphic facial features. EYES - Periocular structures and conjunctiva healthy without lesions. - Pupils are equal, round, and reactive to light. - Extraocular movement is full and intact. - No evidence of nystagmus. NOSE Please see findings under Direct Laryngoscopy procedure. MOUTH - Lips and gingiva pink, moist, without lesions. - Gums/dentition healthy. - Tongue with deviation to the left. - Hard palate without lesions. PHARYNX - Soft palate without lesions. - Uvula is midline. - Oropharynx symmetric. - Left base of tongue soft. NECK - Some post-radiation tissue fibrosis noted. - Soft, supple, without significant lymphadenopathy. - Thyroid gland without masses or asymmetry. - Trachea midline without deviation. LUNGS - Clear to auscultation bilaterally without wheezes. HEART - Regular rate and rhythm without murmur. NEURO - Cranial nerves II-XII intact and symmetric. - Responds appropriately to questions. PSYCHE - Normal mood and affect. PROCEDURES Procedure: Direct Laryngoscopy: Indications: Evaluation for mucosal lesion of the upper airway. The risks of the procedure were reviewed, and verbal consent was obtained. Topical anesthetic and decongestant applied to the nasal cavity. The scope was passed through the nasal cavity, through the nasopharynx, and into the oropharynx. The examination was recorded on the TelePack Unit and uploaded tothe [employer] [facility] Server. Patient tolerated the procedure well without any complications. Nasal Cavity: Normal appearing mucosa, with some increased clear secretions. No obstructions or lesions noted. Nasopharynx: Some mild erythema of the postero-superior pharyngeal wall noted. No lesions or masses noted. Oropharynx: Post-radiation mucosal changes noted. No masses, ulcerations or mucosal lesions noted. Larynx: Epiglottis is thin and non-edematous. Arytenoids are symmetric. True cords demonstrate full and symmetric motion. Hypopharynx: Piriform sinuses are clear bilaterally, without evidence of masses or lesions. No significant pooling of secretions was noted. No overt laryngeal penetration or aspiration. REVIEW OF IMAGES/STUDIES PET/CT 11/29/19 COMPARISON: August 28, 2019 ?? FINDINGS: ?? HEAD/NECK: Hypermetabolic lymph nodes in the left neck at level two (image 55, 61, 66 and 73) are again seen. These lymph nodes are slightly more intense than noted in the prior study. ?? Deviation of the tongue toward the left is without change. ?? CHEST: Normal activity in all soft tissue regions. ?? The previously noted focus of activity in the skin of the left upper back is no longer present. ?? Calcified granulomas are present in the left upper and lower lobes. ?? ABDOMEN/PELVIS: Normal activity in all soft tissue regions. ?? SKELETON/EXTREMITIES: Normal activity in all regions of the axial and visualized appendicular skeleton. ?? IMPRESSION Hypermetabolic, though not enlarged, lymph nodes persist in the left side of the neck. These lymph nodes appear slightly more intense than seen previously, particularly the one seen at image 55. Although post-treatment related changes may still account for these findings, the increase in intensity is concerning and metastatic disease as a cause should also should be considered. ASSESSMENT/RECOMMENDATIONS Delvin Rosario is a 44 y.o. male with the above history, physical exam findings, and direct laryngoscopy findings. Dr. David also met with the patient and reviewed the endoscopic findings, and he felt that there was no evidence of recurrence. He also discussed the presence of the non-pathologicallyenlarged, but increased FDG avid nodes in the left neck on the latest PET/CT scan, that he had reviewed the patient's case that morning at the Head and Neck Tumor Board, and that it was felt by radiology that although there was slightly increased FDG avidity of those nodes on the left, there was also slightly increased FDG activity in many other structures, and that, as such, it was difficult to say t hat there was any definite increased activity in the nodes and question, and thus not clear that posed a risk to the patient. Discussed obtaining a CT neck with contrast, which was felt would be helpful for further characterizing the nodes, and would be helpful for any future desired sampling of them. - Discussed also his trialing an oral anti-histamine and normal saline sprays to help his cough, given elements of allergy noted on endoscopy. - The patient expressed understanding of these points and agreement with the plan, and all questionsthat were asked were answered to the patient's satisfaction. Plan: > CT neck soft tissues. > Daily oral antihistamine use. > Normal saline, 2 sprays on each side, 2 times per day. > Follow up per grid. > Patient should call if their symptoms worsen or fail to improve, if new concerning symptoms arise, or if they have any questions or concerns regarding their treatment. I appreciate the opportunity to be involved in Mr. Rosario's care. Belén Zaidi PA-C [place], [place] [address] Office 12/05/2019 documented in this encounter Miscellaneous Notes Addendum Note - Belén Zaidi PA - 12/05/2019 11:30 AM EDT Addended by: BELÉN ZAIDI on: 12/09/2019 01:55 PM Modules accepted: Orders documented in this encounter Plan of Treatment Upcoming Encounters Date Type Specialty Care Team Description 10/04/2021 Office Visit Dermatology Tg Velasco MD [facility] DR BLANCHE [place], [place] [address] ( rk) documented as of this encounter Visit Diagnoses Diagnosis Tonsil cancer Malignant neoplasm of tonsil documented in this encounter Care Teams Letter Of Credit Clerk Relationship Specialty Start Date End Date Gregg Garcia MD PCP - General General Internal Medicine 09/24/18 [address] [address] [place] [address] documented as of this encounter
--- OUTSIDE RECORDS SUMMARY | 2021-09-13 17:56 | XMS_ITS | Encounter Summary ---
:1975 Author Organization [facility] [place] [address] Care Team Providers Name Role Phone Gregg Garcia MD Primary Care Provider Reason for Referral Diagnostic Test (Routine) - Closed Specialty Diagnoses / Procedures Referred By Contact Refer red To Contact Radiology Diagnoses Tonsil cancer Vocal cord paralysis, unilateral complete Carmelo Zaidi PA [facility] Rad Ct Scan Procedures CT Chest w Contrast [facility] [place] [address] [place] [address] Referral ID Status Reason Start Date Expiration Date Visits V isits Requested Authorized [id number] Closed Specialty 01/28/2020 07/26/2020 1 1 Service Requested Reason for Visit Diagnostic Test (Routine) - Closed Specialty Diagnoses / Procedures Referred By Contact Refer red To Contact Radiology Diagnoses Tonsil cancer Vocal cord paralysis, unilateral complete Carmelo Zaidi PA [facility] Rad Ct Scan Procedures CT Chest w Contrast [facility] [place] [address] [place] [address] Referral ID Status Reason Start Date Expiration Date Visits V isits Requested Authorized [id number] Closed Specialty 01/28/2020 07/26/2020 1 1 Service Requested Encounter Details Date Type Department Care Team Description 02/07/[address] Scan at [facility] [place], Tonsil cancer; [facility] Sinan Ascencio MD Vocal cord paralysis, unilateral complet e Drive [place], [place] [address] OTOLARYNGOLOGY [phone] [place] [address] Social History Tobacco Use Types Packs/Day Years [...] [facility] DR BL[address]HE D[address], [place] [address] (Wo rk) documented as of this encounter Procedures Procedure Name Priority Date/Time Associated Diagnosis Comme nts CT CHEST W CONTRAST Routine 02/07/2020 7:23 AM Tonsil ca ncer Results for this EST Vocal cord procedure are i n paralysis, the results unilateral complete section. documented in this encounter Results CT Chest w Contrast (02/07/2020 7:23 AM EST) Anatomical Region Laterality Modality Chest Computed Tomography Specimen (Source) Anatomical Location Collection Method / Collectio n Time Received Time / Laterality Volume Impressions 02/07/2020 10:07 AM EST No new or enlarging pulmonary nodule or lymphadenopathy. Thank you for letting us participate in the care of this patient. For questions regarding this report, please contact [facility] number below. ? Narrative 02/07/2020 10:07 AM EST EXAMINATION: CT CHEST W CONTRAST CLINICAL HISTORY: Vocal cord paralysis TECHNIQUE: Chest CT with 60 ml of Omnipa que 350 COMPARISON: PET/CT 11/29/2019 FINDINGS: Pulmonary parenchyma: Small calcified gr anulomata in the left upper lobe and left lower lobe are stable dating back t November 2019. Airways: Central and segmental airways a re patent. Pleura: No effusion. Lymph nodes: No lymphadenopathy within t he chest. Heart and vasculature: Normal size of e heart. No pericardial effusion. Mediastinum: Normal findings. No mass is identified. Lower neck: Within normal limits. Limited upper abdomen: No acute patholog y. Skeleton: No aggressive osseous lesion. Procedure Note Evangelina Trujillo MD - 2019 EXAMINATION: CT CHEST W CONTRAST CLINICAL HISTORY: Vocal cord paralysis TECHNIQUE: Chest CT with 60 ml of Omnipa que 350 COMPARISON: PET/CT 11/29/2019 FINDINGS: Pulmonary parenchyma: Small calcified gr anulomata in the left upper lobe and left lower lobe are stable dating back November 2019. Airways: Central and segmental airways a re patent. Pleura: No effusion. Lymph nodes: No lymphadenopathy within t he chest. Heart and vasculature: Normal size of th e heart. No pericardial effusion. Mediastinum: Normal findings. No mass is identified. Lower neck: Within normal limits. Limited upper abdomen: No acute patholog y. Skeleton: No aggressive osseous lesion. IMPRESSION No new or enlarging pulmonary nodule or lymphadenopathy. Thank you for letting us participate in the care of this patient. For questions regarding this report, please contact e number below. Electronically signed by: Evangelina Harding MD, [facility] ([phone]), at 02/07/2020 10:07 AM Sinan Gutierrez MD IMG CT ORDERABLES documented in this encounter Visit Diagnoses Diagnosis Tonsil cancer Malignant neoplasm of tonsil Vocal cord paralysis, unilateral complet e Unilateral complete paralysis of vocal c ords or larynx documented in this encounter Administered Medications Inactive Administered Medications - up to 3 most recent administrations Medication Order MAR Action Action Date Dose Rate Site iohexoL (Omnipaque) (350 mg/mL) Given 02/07/2020 7:23 AM EST 60 mLs injection solution 0-200 mL 0-200 mL, Intravenous, ONCE PRN, 1 dose, Starting on Mon02/07/20 at 0718, Until Mon02/07/20 at 0723, Per Protocol, Warning Vesicant/Irritant Medication , Radiology Contrast, Routine documented in this encounter Care Teams Web Merchandiser Relationship Specialty Start Date End Date Gregg Garcia MD PCP - General General Internal Medicine 09/24/18 [address] [facility] [address] [place] [address] documented as of this encounter
--- OUTSIDE RECORDS SUMMARY | 2021-09-13 17:56 | XMS_ITS | Encounter Summary ---
:1975 Author Organization [facility] [place] [address] Care Team Providers Name Role Phone Gregg Garcia MD Primary Care Provider Encounter Details Date Type Department Care Team Description 12/05/2019 Multidisciplinary Care Ot[facility]ology at [facility] Kindra David [facility] [place] [address] [place] [address] [place] [address] Social History Tobacco Use Types Packs/Day Years [...] encounter Progress Notes Timothy David MD - 12/05/2019 7:22 PM EDT Head and Neck Tumor Board [...] sided nodes. Patient had new study 11.29.19 Pathology Imaging Hypermetabolic lymph nodes in the left neck at level two (image 55, 61, 66 and 73) are againseen. These lymph nodes are slightly more intense than noted in the prior study. Discussion: morphologically not appearing to be larger. Tumor Board Recommendations Plan CT scan of the neck with contrast to reassess. Patient to be seen in clinic later to discuss recommendations ? * (Based on past studies and the information available at the time of presentation) Specific treatment to be undertaken must ultimaly be determined on an individual basis by the patient and those invoved in her/his treatment) ? documented in this encounter Plan of Treatment Upcoming Encounters Date Type Specialty Care Team Description 10/04/2021 Office Visit Dermatology Tg Velasco MD [facility] [address] [place], [place] [address] (Wo rk) documented as of this encounter Visit Diagnoses Not on filedocumented in this encounter Care Teams Gem Expert Relationship Specialty Start Date End Date Gregg Garcia MD PCP - General General Internal Medicine 09/24/18 [address] [place] [address] documented as of this encounter
--- OUTSIDE RECORDS SUMMARY | 2021-09-13 17:56 | XMS_ITS | Encounter Summary ---
:1975 Author Organization [place] [address] Care Team Providers Name Role Phone Gregg Garcia MD Primary Care Provider Encounter Details Date Type Department Care Team Description 02/07/2020 Office Visit Otolaryngology at [facility] Tonsil cancer; [facility] JOSÉ MIGUEL Williamson [place] [address] [facility] [phone] [facility] [place], [place] [address] Social History Tobacco Use Types [...] - Inhaled Oxygen Concentration - - Weight 86.2 kg (190 lb) 02/07/2020 9:20 AM EST Height 188 cm (6' 2) 02/07/2020 9:20 AM EST Body Mass Index 24.39 02/07/2020 9:20 AM EST documented in this encounter Progress Notes Carmelo Zaidi PA - 02/07/2020 9:30 AM EST [facility] OTOLARYNGOLOGY FOLLOW UP NOTE Delvin Rosario is a 44 y.o. male followed for: Left Tonsil Cancer ?? HPI??44 y.o.??male??with [id number] squamous cell carcinoma of the left tonsil, p16 (+), <??5 PY smoking history. Definitive MEDICAL CERTIFICATION SPECIALIST completed 03/11/19. ? 44 yo M presenting November 2018 with [...] left sided nodes. Patient had new study 11.29.19??showing??Hypermetabolic lymph nodes in the left neck at level two (image 55, 61, 66 and73) are again seen. These lymph nodes are slightly more intense than noted in the prior study. Discussion: morphologically not appearing to be larger. CT neck was proposed, and findings indicated not utility sales representative of jose eduardo disease, but suspicious for dural AV fistula. An MRA head and neck was performed on 01/20/20, and this did not show any abnormality of the brain, the intracranial vasculature, carotid or vertebral arteries, AV-shunting. 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 He presented on 01/23/20 with complaint of hoarseness and dysphagia. He noted that his voice was worsening since his last visit, and had noted a chronic cough over the prior 3 months. His dysphagia wascharacterized as difficulties with stiffer foods and smaller food-particles that seemed to get caught up, and needing to use water to get them to pass well. Flexible laryngoscopy showed left vocal cordwith severe weakness, and with median positioning, and good glottic closure with phonation. A CT chest was recommended, but no further imaging of the head was recommended due to the recent MR head scanwhich did not show any abnormality of the brain. New issues since last visit: Seemed to get progressively worse. Doesn't feel it has changed for about a month. PROBLEM LIST Patient Active Problem List Diagnosis Code ??? Neck mass R22.1 ??? 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 Drug-induced nausea and vomiting R11.2, T50.905A ??? Other dysphagia R13.19 ??? Trismus R25.2 ??? Vocal cord paralysis J38.00 PAST MEDICAL HISTORY Past Medical History: Diagnosis Date ??? High cholesterol SOCIAL HISTORY Social History Tobacco Use ??? Smoking status: Former Smoker Packs/day: 0.50 Years: 3.00 Pack years: 1.50 Types: Cigarettes Quit date: 2000 Years since quittin.9 ??? Smokeless tobacco: Never Used Substance Use [...] Dose Route Frequency Provider Last Rate Last Dose ??? [COMPLETED] iohexoL (Omnipaque) (350 mg/mL) injection solution 0-200 mL 0- 200 mL Intravenous Once PRN Kirstin Vilchis MD 60 mL at 02/07/20 0723 ALLERGIES Allergies Allergen Reactions ??? Magnesium Salicylate Rash ROS 8 point Review of Systems was normal except for pertinent positives and negatives included in the History of Present Illness. PHYSICAL EXAMINATION Physical Examination: VITALS - Height 188 cm (6' 2), weight 86.2 kg (190 lb). GENERAL - Well dressed and well nourished. - Breathing comfortably without stridor. - No acute distress. PROCEDURES REVIEW OF IMAGES/STUDIES CT chest w contrast 02/07/20 No radiologist interpretation at the time of visit. Per my review, there were no concerning lesions noted. ASSESSMENT/RECOMMENDATIONS - Discussed with the patient that per my review of today's CT chest, there were no concerning lesionin the chest that could account for his left vocal fold weakness/paralysis. Discussed that I would communicate with him later today regarding the official results when they are in. Discussed that I would also review his case with Dr. David to determine follow up time period and time frame for any temporary laryngeal procedure to improve his function, and communicate those recommendations to him. Discussed his left neck pain, and that this most likely represented musculoskeletal pain, possibly exacerbated by his coughing. Discussed that his recently increased difficulty with swallowing was likelydue to his vocal cord weakness. - Discussed his calling to be seen for any worsening of his voice, swallowing, or his breathing. - The patient expressed understanding of these points and agreement with the plan, and all questionsthat were asked were answered to the patient's satisfaction. Plan: > I will communicate the results of the CT chest today. > Will review the patient's case with Dr. David to determine desired follow up time period. > Patient should call if their symptoms worsen or fail to improve, if new concerning symptoms arise, or if they have any questions or concerns regarding their treatment. After visit addendum: I reviewed the patient's case with Dr. David, and he recommended that the patient's case be brought before the Head and Neck tumor Board for recommendations regarding further workup for his vocal cord paralysis. I communicated this plan to the patient via [facility]. More than half of the ~20 minute visit was spent counseling the patient. I appreciate the opportunity to be involved in Mr. Rosario's care. Carmelo Zaidi PA-C [place], [place] [phone] Office 02/07/2020 documented in this encounter Plan of Treatment Upcoming Encounters Date Type Specialty Care Team Description 10/04/2021 Office Visit Dermatology Tg Velasco MD [facility] [address] BL[address]HE DAL[address]MAT [place], [place] [address] (Wo rk) documented as of this encounter Visit Diagnoses Diagnosis Tonsil cancer Malignant neoplasm of tonsil Vocal cord weakness Paralysis of vocal cords or larynx, unsp ecified documented in this encounter Care Teams Content Development Manager Relationship Specialty Start Date End Date Gregg Garcia MD PCP - General General Internal Medicine 09/24/18 [address] [place] [address] documented as of this encounter
--- OUTSIDE RECORDS SUMMARY | 2021-09-13 17:56 | XMS_ITS | Encounter Summary ---
:1975 Author Organization [facility] [place] [address] Care Team Providers Name Role Phone Gregg Garcia MD Primary Care Provider Encounter Details Date Type Department Care Team Description 03/11/2020 Office Visit Hematology/Oncology Ella Brumfield, Dysp hagia, oropharyngeal phase; at [facility] TELEPHONE LINES REPAIRER Vocal cord paralysis [address] [place] [phone] Social History Tobacco Use Types Packs/Day Years [...] of this encounter Progress Notes Ella Brumfield, TELEPHONE LINES REPAIRER - 03/11/2020 8:30 AM ESTSummary: TELEPHONE LINES REPAIRER Voice / Dysphagia Txt Speech Language Pathology Progress Note Patient Profile: Delvin Rosario is a 44 Y m with tonsillar cancer, s/p chemoradiation treatment. Returns to clinic for TELEPHONE LINES REPAIRER treatment to address dysphagia and dysphonia symptoms. Interval History: Patient most recently seen by ENT for direct visualization of vocal folds given report of changes in voice quality/endurance, with subsequent direct laryngoscopy on 01/22 which demonstrated full motion of right vocal cord and left vocal cord paralysis with median positioning; good glottic closure. Patient had VFSS/MBSS with this TELEPHONE LINES REPAIRER at [facility] on 02/02, which demonstrated pharyngoesophageal phase dysphagia [...] despite active participation in swallowing treatment with TELEPHONE LINES REPAIRER; no word on date of GI appt at this time. Subjective: Patient arrives to visit in relatively good spirits, reports he has started to feel someslight increase in lymphadema when asked, some increased trouble with swallowing in the morning (more phlegm?) Pt received call from [facility] re: GI consult for , plans to follow up to speed upreferral. Difficulties with pitch range persist. Discussed potential for reassessment with local CLTPT given continued pain in left neck and report of increased lymphadema. Does report continued coughing fits with occasional emesis (coughed up a bit of his lunch after swallowing, denies vomiting after coughing fits as compared to previous reports, states it was more solid food coming back up). Also reports coughing episodes / tickle in throat happen outside of po intake as well. Reports this morning was first time he has woken up without pain on left side of scalp. Objective: Pain: 0/10, occasional pain in L neck / occipital region at 4/10 during swallowing exercise, quicklyresolved (reduced from previous treatment sessions, previously 6-7/10) Respiratory Status: Room air Current Diet: No [...] breathy and strained, speech intelligibility 90-100%. MDTP: Level 4 -++-+-+-+ 5-9 avg swallows to clear sensation of pharyngeal stasis, reports avg effort level between -09/12 Level 3 -++--+++++ 2-3 avg swallows to clear sensation of pharyngeal stasis when felt, reports avg effort level between-09/12 Voice: Subjective: States he continues to have returning difficulties with volume control in modal registerdespite some improvements with intensity level in past day or so; difficulties persist with phonation when attempting to whisper, or phonating in higher range Reviewed VFEs (reports continued difficulties with accessing higher range, although some improvements with accessing and maintaining less breathy VQ with trial techniques today) Voice Handicap Index [VHI]: (Previously administered 01/08) I-F: 17 II-P: 24 III-E: 13 Total: 54 Moderate Auditory/Perceptual: CAPE-V: Roughness: 35/100 Breathiness: 40/100 Strain: 50 /100 Ptich: 10 /100 Loudness: 18/100 Overall Severity: 51/100 - Moderate Speech Rate: WNL Vocal Stability: Inconsistent Intonation: Mildly monotone Acoustic/Aerodynamic Measures: Pitch Range: Max F0: 295 Hz (increased range relative to 01/08 visit with TELEPHONE LINES REPAIRER, Max F0 at 233 Hz) Min F0: 95 Hz S:Z Ratio: 0.86 MPT: 10.3 seconds (mild improvement to date, however still significantly reduced relative to previous measurement on 01/08, MPT = 19 s) Assessment: Pt was seen today for a follow-up TELEPHONE LINES REPAIRER visit, has been participating in both direct voicetherapy 2x/week with slow, gradual improvements in vocal control and stability, and MDTP program with minimal improvement in pharyngeal swallowing function so far. TELEPHONE LINES REPAIRER contacted PCP to initiate GI consult to further investigate esophageal involvement related to swallowing function (hypertension of upper esophagus noted during VFSS on [...] of cricopharyngeus. Patient may also benefit from reassessment as needed in next few weeks with local FINANCIAL AGENT PT/lymphadema therapist if increase in lymphadema is not managed by patient, and laryngeal videostroboscopy with ENT to further inform voice treatment plan of care. 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 Prognosis for improvement with dysphagia and dysphonia symptoms related to CN IX-XII are likely best determined with time and ongoing monitoring by ENT/TELEPHONE LINES REPAIRER and GI. Patient demonstrated comprehension with all recommendations regarding his treatment plan to address dysphagia and voice symptoms during session today. Patient continues to be appropriate candidate for continued TELEPHONE LINES REPAIRER treatment for vocal function given continued motivation and gradual progress to date, has follow up TELEPHONE LINES REPAIRER appt for MDTP session, will determine if MDTP should be put on hold until GI consultcan take place. Pt will benefit from continued therapeutic interventions [...] Plan: Subsequent session to address direct voice and MDTP swallowing treatment as outlined. Thank you for allowing me to take part in Mr. Rosario's care. Please feel free to contact me with any questions. Ella Brumfield MA CCC-TELEPHONE LINES REPAIRER Speech-Language Pathologist [email or web address] documented in this encounter Plan of Treatment Upcoming Encounters Date Type Specialty Care Team Description 10/04/2021 Office Visit Dermatology Tg Velasco MD [facility] [address] [place] [address] (Wo rk) documented as of this encounter Visit Diagnoses Diagnosis Dysphagia, oropharyngeal phase Vocal cord paralysis Paralysis of vocal cords or larynx, unsp ecified documented in this encounter Care Teams Copier Technician Relationship Specialty Start Date End Date Gregg Garcia MD PCP - General General Internal Medicine 09/24/18 [address] [place] [address] documented as of this encounter
--- OUTSIDE RECORDS SUMMARY | 2021-09-13 17:56 | XMS_ITS | Encounter Summary ---
:1975 Author Organization [facility] [address] Care Team Providers Name Role Phone Gregg Garcia MD Primary Care Provider Reason for Visit Consultation (Routine) - Closed Specialty Diagnoses / Procedures Referred By Contact Refer red To Contact Gastroenterology Diagnoses dysphagia Gregg Garcia MD [facility] Gastro 4l Procedures consult [address] [facility] 1 [place], [place] [address] [place] [phone] Phone: Fax: Referral ID Status Reason Start Date Expiration Date Visits Requ ested Visits Authorized [id number] Closed 03/11/2020 03/11/2021 1 1 Encounter Details Date Type Department Care Team Description 03/24/2020 TH Visit Gastroenterology at [facility] [place], Dysphagia, (TeleHealth) [facility] [place] [address] [facility] [phone] [place] [address] Social History Tobacco Use Types Packs/Day Years [...] as of this encounter Patient Instructions Patient InstructionsSiegMia phillips APRN - 03/24/2020 5:00 PM EST 1. Barium swallow. Please call radiology to schedule your imaging studies at the [facility]. Main radiology scheduling line 2. Upper endoscopy. Please let us know if you don't hear from someone within one week 3. Avoid non-steroidal anti-inflammatory medications (NSAIDs) including but not limited to Advil, ibuprofen, Motrin, Aleve, Excedrin, naproxen, Mobic, indomethacin, and aspirin. Acetaminophen (Tylenol)is okay for aches and pains. 4. Follow up approximately 3 weeks after testing documented in this encounter Progress Notes Mia Peterson APRN - 03/24/2020 5:00 PM EST [facility] TELEMEDICINE PRO[facility] Chief Complaint: Delvin Rosario is a 44 y.o. patient referred for consultation by Gregg Garcia MDfor dysphagia History of Present Illness: 44 y.o. male with neck mass, tonsil cancer with radiation , vocal cord paralysis. Tonsillar cancer with radiation. Dysphagia prior to the treatment. Post-radiation, noted worsening dysphagia. Approximately 40 treatments. Chemo therapy. Hasn't been improving. Has been working with ROTARY DRILL OPERATOR for vocal cord paralysis. ROTARY DRILL OPERATOR recommended Gi workup. Dysphagia primarily with solids. Notes some issues with liquids. Consistent every day. Coughing and choking. Globus sensation. Denies reflux except for one week recently. This has resolved. Denies nausea and vomiting. NSAIDs approximately twice a week. Good appetite. Denies early satiety. Weight loss i nitially during treatment. This has stabilized. He has been maintaining his weight. Denies diarrhea, constipation, abdominal pain. Denies melena and hematochezia. Review of systems: 14-point review of systems [...] mg Tablet Take by mouth daily. ??? benzonatate (TESSALON) 200 mg Capsule Take 1 capsule by mouth 3 times daily as needed for Cough.(Patient not taking: Reported on 03/18/2020) 21 capsule 3 Facility-Administered Medications Prior to Visit Medication Dose Route Frequency Provider Last Rate Last Dose ??? lidocaine (XYLOCAINE) 4 % (40 mg/mL) external solution Topical (Top) Once PRN Mihir Vences MD Allergies: is allergic to magnesium salicylate. Past Medical History: has a past medical history of High cholesterol. Past Surgical History: has a past surgical history that includes Laryngoscopy, Dirct, Op Scope, Biopsy (27304) (Bilateral, 12/10/2018); Biopsy Oropharynx (23011) (Bilateral, 12/10/2018); and Nasal Endoscopy, Dx (40040) (Bilateral, 12/10/2018). Family History: family history includes Esophageal Cancer [...] 4. Mod barium swallow 02/02/30 done at [facility]; no evidence of aspiration Assessment/Plan: Mr. Rosario is a 44 y.o. patient with a history of esophageal dysphagia and globus sensation first noted at the time of tonsillar cancer diagnosis. He was subsequently provided with 40 radiation treatments. Dysphagia worsened. He also reports vocal cord paralysis for which he has been working with speech-language pathology. He has had multiple modified barium swallows without evidence of aspiration. There are no structural abnormalities noted on MRI angiography of neck or CT of chest. His symptoms are most consistent with an obstructive etiology. His symptoms may also represent esophagitis, GERD, or EOE. He does admit to occasional NSAID use. We reviewed adverse effects of NSAIDs on the GI tract including erosions, ulcers, and GI bleeds. Recommendations: - Esophagram prior to EGD for mapping of esophagus - EGD with IV sedation for dysphagia to evaluate for strictures, stenosis, and esophagitis -Consider combined esophageal manometry with impedance pH off medications -Stop NSAIDs -Follow-up approximately 3 weeks after testing Mia Peterson APRN [facility] [place] [phone] documented in this encounter Plan of Treatment Upcoming Encounters Date Type Specialty Care Team Description 10/04/2021 Office Visit Dermatology Tg Velasco MD [facility] DR BL[address]HE DALAL[address]MAT [place], [place] [address] (Wo rk) Scheduled Orders Name Type Priority Associated Diagnoses Order S chedule ENDOSCOPY CASE Procedures Routine Dysphagia, unspecified Ord ered: 03/24/2020 REQUEST: EGD, UPPER GI type ENDOSCOPY documented as of this encounter Visit Diagnoses Diagnosis Dysphagia, unspecified type documented in this encounter Care Teams Benefits Consultant Relationship Specialty Start Date End Date Gregg Garcia MD PCP - General General Internal Medicine 09/24/18 [address] [place] [address] documented as of this encounter
--- OUTSIDE RECORDS SUMMARY | 2021-09-13 17:56 | XMS_ITS | Encounter Summary ---
:1975 Author Organization [facility] [place] [address] Care Team Providers Name Role Phone Gregg Garcia MD Primary Care Provider Encounter Details Date Type Department Care Team Description 05/13/2020 Office Visit Hematology/Oncology Ella Brumfield, Dysp hagia, oropharyngeal phase; at [facility] APPLICATION ENGINEER Vocal cord paralysis; [address] [place] [address] Tonsil cancer; [place] [phone] Social History Tobacco Use Types Packs/Day Years [...] of this encounter Progress Notes Ella Brumfield, APPLICATION ENGINEER - 05/13/2020 10:00 AM ESTSummary: APPLICATION ENGINEER Treatment Note and Summary Speech Language Pathology Treatment Note Patient Profile: Delvin Rosario is a 44 Y m with tonsillar cancer, s/p chemoradiation treatment. Returns to clinic for APPLICATION ENGINEER treatment to address dysphonia, ongoing dysphagia symptoms. [...] appearing and dilation with GI (04/22). Subjective: States that 6 months ago, the idea of FEES would have been no problem at all, but reports hypersensitive/ triggered cough gives him pause about endoscopy lately; despite this, he is still willing to try it. States he continues to bring up foamy substance after coughing, also kidney minor-sized mucous typically with blood tinges stringy, veiny which has not changed for past 2-3 months. Reports being much more conscious of taking time with eating/drinking and following recommendations as previously reviewed, but had a few episodes within the past week involving coughing fits while eating; states he had felt pharyngeal globus, attempted liquid wash, but this continued to stimulate coug chon fit (emesis has occurred occasionally after this, not recently in past 1-2 weeks) Denies dyspnea during swallowing/eating,does endorse fatigue after meals. Endorses dyspnea mostly with voicing at conversational level, not with VFEs/reviewed voicing techniques; reports consciousness of increased breath patterns during voice as previously practiced, but still having trouble doing this when talkingnormally. Reports cough is still inconsistently there, but not as bad; reports he is not on steroidscurrently. Objective: Pain: 0/10; reports tingling in both hands when feeling lightheaded/dyspneic VFEs feel okay, don't feel any issues /i/ - moderate breathiness faded to mild breathiness *Significantly less breathy VQ when occluding nares during voice exercises today MPT: 6.2 seconds (slight improvement relative to previous week) 6.8 seconds with nares occluded RSI = 33 (On PPI 2x/day) Assessment: Pt was seen today for a follow-up APPLICATION ENGINEER visit, has been participating in direct voice therapy with slow, gradual improvements in vocal control and stability/resonant placement during sessions, however vocal quality continues to be significantly strained, breathy, and more hoarse relative to typical baseline; patient continues to be stimulable for LMRVT technique to initiate less roughness and improved stability at short phrase and eventual conversation level. Slight improvement in MPT today (+1 second). Continued question of VPI? Reports nasopharyngeal regurgitation has been happening forabout 2-3 months; consult with ENT and Radiation Oncology is scheduled for 05/19. Provided handout outlined strategies for energy conservation during mealtimes. Discussed possible benefits of Respiratory Therapy with PFTs especially if dyspnea becomes worse despite ongoing voice therapy and exercise. Patient demonstrated comprehension with all recommendations regarding his treatment plan to address dysphagia and voice symptoms. Patient continues to be appropriate candidate for continued APPLICATION ENGINEER treatment for vocal function given continued motivation [...] me with any questions. Ella Brumfield MA [facility]-APPLICATION ENGINEER Speech-Language Pathologist [email or web address] documented in this encounter Plan of Treatment Upcoming Encounters Date Type Specialty Care Team Description 10/04/2021 Office Visit Dermatology Tg Velasco MD [facility] [address]AL[address] [place], [place] [address] (Wo rk) documented as of this encounter Visit Diagnoses Diagnosis Dysphagia, oropharyngeal phase Vocal cord paralysis Paralysis of vocal cords or larynx, unsp ecified Tonsil cancer Malignant neoplasm of tonsil Chronic cough Cough documented in this encounter Care Teams Senior Service Aide Relationship Specialty Start Date End Date Gregg Garcia MD PCP - General General Internal Medicine 09/24/18 [address] [place] [address] documented as of this encounter
--- OUTSIDE RECORDS SUMMARY | 2021-09-13 17:56 | XMS_ITS | Encounter Summary ---
:1975 Author Organization [facility] [place] [address] Care Team Providers Name Role Phone Gregg Garcia MD Primary Care Provider Encounter Details Date Type Department Care Team Description 12/06/2019 Telephone Otolaryngology at [facility] [place] [address] Social History Tobacco Use Types Packs/Day [...] this encounter Miscellaneous Notes Telephone Encounter - Juli Triana - 12/06/2019 4:58 PM EDT If patient can have the images done at [facility] please change order and send to them documented in this encounter Plan of Treatment Upcoming Encounters Date Type Specialty Care Team Description 10/04/2021 Office Visit Dermatology Tg Velasco MD [facility] ER DR BLANCHE DALAL-DERMAT [place], [place] [address] (Wo rk) documented as of this encounter Visit Diagnoses Not on filedocumented in this encounter Care Teams Insulation Nozzleman Relationship Specialty Start Date End Date Gregg Garcia MD PCP - General General Internal Medicine 09/24/18 [address] [place] [address] documented as of this encounter
--- OUTSIDE RECORDS SUMMARY | 2021-09-13 17:56 | XMS_ITS | Encounter Summary ---
:1975 Author Organization [place] [address] Care Team Providers Name Role Phone Gregg Garcia MD Primary Care Provider Encounter Details Date Type Department Care Team Description 04/22/2020 Anesthesia Event Gastroenterology at [facility] Godwin Hackett, [facility] [place] [address] [facility] [phone] DR ANESTHESIOLOGY [place], [place] [address] Anesthesia Record Procedure Summary Procedure Name Responsible Anesthesia Start Anesthesia Stop Time Anesthesiologist Time EGD WITH BIOPSY Godwin Hackett MD 04/22/20 1408 04/22/20 1 434 (WRVU 2.49) (N/A Trunk) Events Date Time Event Comment 04/22/2020 1320 1352 AN Verify 1408 Start 1408 An Start Data 1412 An Induction 1412 Anesthesia Ready 1434 an stop data 1434 Recovery or ICU Handoff Patient care was transferred to the destination unit staff after review of the patient's medica l history, current anesthetic/surgi sean status and plan, according to the Provider Handoff Checklist. 1434 Stop Name Total Propofol 120 mg Propofol INF 424.32 mg Dexmedetomidine 12 mcg lactated ringers infusion 400 mL Agents Name O2 Air N2O O2 Auxiliary Flowmeter 1 Blood No blood administrations on file. Lines, Drains, and Airways Type Details Placement Removal PIV 04/22/20; 1324; metacarpal 04/22/20 1324 by Miles bianchi, 04/22/20 1530 by Maryellen vein (top of hand), right; FRED Vang RN [id number] catheter system; 22 gauge; Silva Canela RN; 04/22/20; 1530 documented in this encounter Social History Tobacco [...] encounter OR Notes Anesthesia Postprocedure Evaluation - Godwin Hackett MD - 04/22/2020 4:13 PM EST Department of Anesthesiology Post-procedure Note Patient: Delvin Rosario Procedure Summary Date: 04/22/20 Room / Location: [facility] ENDO 2 / [facility] ENDOSCOPY Anesthesia Start: 1408 Anesthesia Stop: 1434 Procedures: EGD WITH BIOPSY (WRVU 2.49) (N/A Trunk) ESOPHAGEAL DILATION OVER GUIDE WIRE (WRVU 1.51) (N/A Esophagus) Diagnosis: Dysphagia, unspecified type (dysphagia. H/O tonsillar malignancy s/p resection and radiation 2019 now with dysphagia. EGD 04/06/2020 with upper esophageal stricture, benign appearing. Referral for dilation.) Surgeons: Mil Beckwith MD Responsible Provider: Godwin Hackett MD Anesthesia Type: general ASA Status: 3 All Anesthesia Providers: Anesthesiologist: Godwin Hackett MD SURGICAL INSTRUMENT MAKER: Silverio Sidhu CRNA Vitals Value Taken Time BP 94/57 04/22/20 1540 Temp Pulse Resp 16 04/22/20 1530 SpO2 97 % 04/22/20 1542 Pain Level 0 04/22/20 1530 Vitals shown include unvalidated device data. Patient Location: PACU/[facility] Level of Consciousness: Awake and Alert Pain Management: Satisfactory Analgesia PONV: None Cardiovascular Status: At Baseline and Hemodynamically Stable Respiratory Status: At Baseline and Room Air Postoperative Fluid Status: Intravascular EUvolemia Possible Anesthetic Complications: NONE apparent at time of evaluation Final Primary Anesthesia Type: MAC (The anesthetic type performed was the same as planned.) Comments: Godwin Hackett MD Anesthesia Preprocedure Evaluation - Godwin Hackett MD - 04/22/2020 1:16 PM EST Pre-Anesthesia Evaluation for: Delvin Rosario a 44 y.o. male. Procedure(s): EGD, UPPER GI ENDOSCOPY Patient Active Problem List Diagnosis ??? Dysphagia Added automatically from request for surgery [id number] ??? Vocal cord paralysis ??? Trismus ??? [...] 1.44) performed by Timothy David MD at [facility] MAIN OR ??? PRO LARYNGOSCOPY, DIRCT, OP SCOPE, BIOPSY Bilateral 12/10/2018 LARYNGOSCOPY, MICROSCOPE, WITH BIOPSY (WRVU 3.55) performed by Timothy David MD at [facility] MAIN OR ??? PRO NASAL ENDOSCOPY, DX Bilateral 12/10/2018 NASAL ENDOSCOPY DIAGNOSTIC, UNILATERAL OR BILATERAL (WRVU 1.1) performed by Timothy David MD at [facility] MAIN OR ??? PRO UPPER GI ENDOSCOPY, DIAGNOSTIC N/A 04/06/2020 EGD, UPPER GI ENDOSCOPY performed by Juan Carrillo MD at [facility] MA[facility] Social History Tobacco Use ??? [...] Temp Pulse Resp BP SpO2 O2 Device 04/22/20 1311 37.4 ??C (99.3 ??F) 67 18 118/71 99 % RA Body mass index is 23.11 kg/m??. Height: 188 cm (6' 2) Weight: 81.6 kg (180 lb) Airway Assessment: Mallampati: II TM distance: >3 FB Neck ROM: full Cardiovascular Assessment: Rate: normal Pulmonary Assessment: unlabored breathing Dental Assessment: - normal exam Misc Assessment: Patient is wearing No contact(s). IV access: Peripheral line Anesthesia Plan: ASA 3 general, with a(n) intravenous induction 44yo m, hx of tonsillar ca s/p resection and radiation now with dysphagia, here for EGD. No issues with prior anesthetics. No recent changes in health. Denies significant GERD. NPO today. Plan [facility] Region - Other Informed Consent: Anesthetic plan and risks discussed with patient. Use of blood products discussed with patient who consented to blood products. Plan discussed with resident and attending. PAT Clinic Note documented in this encounter Plan of Treatment Upcoming Encounters Date Type Specialty Care Team Description 10/04/2021 Office Visit Dermatology Tg Velasco MD [facility] ER DR BLANCHE DALAL-DERMAT [place], [place] [address] (Wo rk) documented as of this encounter Visit Diagnoses Not on filedocumented in this encounter Administered Medications Inactive Administered Medications - up to 3 most recent administrations Medication Order MAR Action Action Date Dose Rate Site dexmedetomidine (Precedex) (4 Given 04/22/2020 2:15 PM EST 4 mcg mcg/mL) bolus injection (Anesthsia) Intravenous, PRN, Starting on Mon04/22/20 at 1410, Until Mon04/22/20 at 1434, Anesthesia Intra-op, Routine Given 04/22/2020 2:12 PM EST 4 mcg Given 04/22/2020 2:10 PM EST 4 mcg lactated ringers infusion Restarted 04/22/2020 2:32 PM EST 100 mL/hr, Intravenous, CONTINUOUS, Starting on Mon04/22/20 at 1330, Until Mon04/22/20 at 1531, Endoscopy (Day of Procedure) New Bag 04/22/2020 1:25 PM EST 100 mL/hr 100 mL/hr propofoL (Diprivan) 10 mg/mL bolus injection Given 2:17 PM EST 100 mg (Anesthesia) Intravenous, PRN, Starting on Mon04/22/20 at 1413, Until Mon04/22/20 at 1434, Anesthesia Intra-op Given 04/22/2020 2:13 PM EST 20 mg propofoL (Diprivan) infusion Rate/Dose 04/22/2020 2:20 300 mcg/kg/min 146.88 Intravenous, CONTINUOUS PRN, Change PM EST mL/hr Starting on Mon04/22/20 at 1412, Until Mon04/22/20 at 1434, Anesthesia Intra-op, Routine New Bag 04/22/2020 2:12 PM EST 200 mcg/kg/min 97.92 mL/hr documented in this encounter Care Teams Furniture Decals Inspector Relationship Specialty Start Date End Date Gregg Garcia MD PCP - General General Internal Medicine 09/24/18 [address] [place] [address] documented as of this encounter
--- OUTSIDE RECORDS SUMMARY | 2021-09-13 17:56 | XMS_ITS | Encounter Summary ---
:1975 Author Organization [facility] [place] [address] Care Team Providers Name Role Phone Gregg Garcia MD Primary Care Provider Encounter Details Date Type Department Care Team Description 04/15/2020 Office Visit Hematology/Oncology Ella Brumfield Voca l cord paralysis; at [facility] Tonsil cancer; [address] Dysphagia, [place] [phone] Social History Tobacco Use Types Packs/Day Years [...] - Therapy - Ella Brumfield SLP - 04/15/2020 10:30 AM ESTSumrosa: [facility] Txt Note Speech Language Pathology Progress Note Patient Profile: Delvin Rosario is a 44 Y m with tonsillar cancer, s/p chemoradiation treatment. Returns to clinic for [facility] treatment to address dysphonia, ongoing dysphagia symptoms. Interval History: Patient has had endoscopy with GI which showed mild systemic disease and no functional deficits identified on 04/06; scheduled GI follow up for 04/22 to further explore etiology/rule outfurther stricture; continues to be followed by [facility] with slow gradual progress but is experiencing significant increase in difficulties with dyspnea and coughing fits, more frequent emesis. Subjective: Patient arrives to visit today and reports new, consistent pain on right side of neck rated at 3/10 with occasional dull throbbing, heartburn, and significant change in vocal abilities; is aware of plan for additional procedure on 04/22 at [facility] to further rule out possible stricture. Patient reports increased difficulties at work because of vocal dysfunction. Emesis occurring pretty regularly, states when I have the cough I can't breath - this also happens during po intake. Has noticed increased shortness of breath this past week. Cough seems to be occurring less from speaking, more so from po intake (more intense coughing fits occur with or after po intake); has also reported nasal regurgitation with both solids and liquids. Reports rescue breathing technique (quick sniff+exhale through pursed lips) reviewed during previousvisit has been helpful in regaining breath control during coughing fits. Reports continued difficulties from previous week with straw propulsion, during which he will feel massive air escaping from nose, occasionally will feel nasal regurgitation with solids foods. Admits he has not been as aware of swallowing precautions towards end of meals, gets distracted or too c omfortable during which he has more difficulties with coughing episodes. Cough continues to be triggered from tactile sensation to left posterior sublingual area; denies changes in sensation to lingual and/or oral cavity; coughing is reduced when eating only on right side. Objective: Pain: 3/10 today (L neck) Respiratory Status: Room air Current Diet: No [...] further GI workup Voice: Subjective: States VFEs and carry over exercises have felt relatively stable, still having difficulties with upper range/projection and carrying over into everyday speech because of coughing fits Reviewed VFEs; benefits from cues such as easy and above a whisper as well as taking things slower during VFEs, use of LMRVT today with progressive hierarchy, ie hum>chant>words>phrases Patient able to maintain less breathy and consistent phonation without vocal breaks during 2-3 word phrases +-++-+++ Conversation -+--++++++ Voice Handicap Index [VHI]: (01/09/20) I-F: 17 [...] Inconsistent Intonation: Mildly monotone Acoustic/Aerodynamic Measures: MPT: 5.4 seconds (reduced) With SOVT during inhale: 4.78, then 7.79; still significantly reduced Reports air escape from nose when inhaling through straw, nasal regurgitation (velopharyngeal weakness?) and cough sensation during inhale Assessment: Pt was seen today for a follow-up [facility] visit, has been participating in direct voice therapy with slow, gradual improvements in vocal control and stability/resonant placement during sessions, however vocal quality upon entering room today noted to be significantly strained, breathy, and more hoarse relative to typical baseline; patient was stimulable for LMRVT technique to initiate less roughness and improved stability at short phrase and eventual conversation level, however would benefitfrom ENT follow up to be scheduled soon to maximize cord functioning, assess velopharyngeal function, and rule out additional contributing factors to vocal deficits as outlined; of particular note is new dull throbbing pain in L side of neck. Patient is continuing to experience reduced quality of life related to vocal functioning, and is starting to experience difficulties at times with occupational duties. Patient demonstrated comprehension with all recommendations regarding his treatment plan to address dysphagia and voice symptoms. Patient continues to be appropriate candidate for continued [facility] treatment for vocal function given continued motivation [...] me with any questions. Ella Brumfield MA [facility] Speech-Language Pathologist [email or web address] documented in this encounter Plan of Treatment Upcoming Encounters Date Type Specialty Care Team Description 10/04/2021 Office Visit Dermatology Tg Velasco MD [facility] DR [address] [place], [place] [address] (Wo rk) documented as of this encounter Visit Diagnoses Diagnosis Vocal cord paralysis Paralysis of vocal cords or larynx, unsp ecified Tonsil cancer Malignant neoplasm of tonsil Dysphagia, oropharyngeal phase documented in this encounter Care Teams Reference Assistant Relationship Specialty Start Date End Date Gregg Garcia MD PCP - General General Internal Medicine 09/24/18 [address] [place] [address] documented as of this encounter
--- OUTSIDE RECORDS SUMMARY | 2021-09-13 17:56 | XMS_ITS | Encounter Summary ---
:1975 Author Organization [facility] [place] [address] Care Team Providers Name Role Phone Gregg Garcia MD Primary Care Provider Encounter Details Date Type Department Care Team Description 01/13/2020 Office Visit Hematology/Oncology Chris George [facility] cancer; at [facility] Chronic cough; [address] [facility] [place], [place] [address] ONCOL[address] DEPT. [phone] [place] [id number] Social History Tobacco Use Types Packs/Day Years [...] Sign Reading Time Taken Comments Blood Pressure 124/75 01/13/2020 1:07 PM EST Pulse 71 01/13/2020 1:07 PM EST Temperature 36.9 ??C (98.5 ??F) 01/13/2020 1:07 PM EST Respiratory Rate 20 01/13/2020 1:07 PM EST Oxygen Saturation 98% 01/13/2020 1:07 PM EST Inhaled Oxygen Concentration - - Weight 86.5 kg (190 lb 12.8 oz) 01/13/2020 1:07 PM EST Height 185.4 cm (6' 0.99) 01/13/2020 1:07 PM EST Body Mass Index 25.18 01/13/2020 1:07 PM EST documented in this encounter Progress Notes Chris George MD - 01/13/2020 1:00 PM EST Hematology/Oncology Clinic [facility] Patient Active Problem List Diagnosis ??? Trismus ??? Other dysphagia ??? Drug-induced nausea and vomiting ??? Tonsil cancer cT1 N2 M0 p16(+), L tonsil A. Presenting with L neck mass; trivial tobacco history; small L tonsil tumor, EUA 12/10/2018: non-ker SCCa B. Definitive radiation 01/16/2019 - 03/11/2019; high dose cisplatin X 2, c/b grade 3 nausea and gr 2 ototoxcity; switch to weekly carbo+paclitaxel 02/25/2019 ??? Neck mass Med Onc checkup, slightly off-schedule to review recent imaging concerns re: possible L neck adenopthy. He is now nearly 11 months from the completion of chemoradiation. He continues his slow but steady recovery. His weight is increasing, his energy level is good although his exertion tolerance is still less than baseline and he finds he needs more sleep than prior to treatment. Eating is slower, and hehas not fully regained the weight he lost during treatment. He is bothered by dry mouth, and has trouble with dry foods, granular foods such as rice. Taste sensation is nearly normal although he is intolerant of spices still. He has moderate dysphagia but no episodes of aspiration. He is most troubled by a chronic cough. This is worse in the morning, exacerbated by eating or drinking. Is worse with extensive talking. He finds that his voice strength is much reduced, another source of frustration. He has been working with our speech therapist; video stroboscopy has been recommended but because of the Covid pandemic has not been accomplished yet. He gets occasional muscle spasms in the left neck, unpredictable, bothersome but not severe. Left tongue hypomobility and atrophy were noted following his radiation. Mobility and leftward deviation have improved slightly over the past months. His vocal articulation is normal most of the time, but worsens if he has to speak for any length of time. The chemotherapy related tinnitus has unfortunately not diminished. The foot neuropathy however has resolved. He has had several follow-up scans, initially showing concerning jose eduardo uptake in the right neck, which on subsequent scan had resolved but showed several small but FDG avid nodes in the left neck. Thiswas followed up with a CT scan which by report did not have any concerning adenopathy. The scans were reviewed at our recent tumor board meeting, and ultimately a small left zone 2 node, we concluded, was actually an enlarged vein caused by initial tumor related left jugular compression. Brandon himselfhas not noted any neck adenopathy. 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 Physical exam: He looks well, in good spirits His voice is clear but vocal volume is slightly diminished. Articulation is good. Oral exam shows moderate left tongue hemiatrophy and fasciculations. No visible tumor. Palate moves normally. No trismus. Slight xerosis. Teeth in good repair. Neck exam shows excellent cosmesis, essentially complete resolution of lymphedema. No palpable adenopathy or tenderness. The chest is clear Cardiac exam is normal Abdomen is benign without hepatosplenomegaly. Extremities normal, no clubbing cyanosis or edema Neurologic function shows normal motor and sensory function. Cranial nerves normal except for tongue Reflexes 1+. No labs done for today's visit. CBC and chemistry panel done in mid December were essentially normal,new baseline creatinine 1.2. TSH last done in mid September, within normal limits. Radiographs: I reviewed his pretreatment neck imaging which showed a large mass which appeared to obliterate the jugular vein and left zone 2. Since treatment, this jose eduardo mass has resolved. Most recentPET/CT of November 28 showed some asymmetric vocalis muscle activity with right side being more active; there were several small but FDG avid nodes in the left neck. Most recent CT scan showed no enlarged nodes, and there is a suggestion that one of the FDG avid nodes was in fact a dilated collateralvein. Impression: Clinically EILEEN nearly 11 months from chemoradiotherapy which was complicated by neurotoxicity: Focally in the left hemitongue, and systemically in the 8th nerve, and transiently in the peripheral sensory nerves of the feet. He has residual dysphagia of moderate proportion. His vocal weakness may also be from neuropathy of the vocalis muscles left greater than right, although his voice certainly does not sound like a paralyzed vocal cord. His chronic cough is quite bothersome, reflux has been hypothesized but proton pump inhibitor therapy has not improved this. This may simply be mucosaltoxicity and inspissated secretions causing throat irritation. Plan: Continue speech therapy, and follow-up with video stroboscopy. Therapeutic trial of benzonatate 200 mg 3 times daily to see if this might help with her chronic cough. Recommended regular stretching exercises to minimize the neck spasms, although these can be refractory to treatment. Follow-up with repeat imaging in 2 or 3 months to check on the status of the left neck; I will double check with Dr. David about the preferred test, whether CT or PET/CT. Plan: ?? Reviewed CT results. Will continue to observe; re-image in 2-3 months (will discuss CT vs PET/CT with Dr David) ?? Continue speech and swallowing therapy; videostroboscopy pending ?? Trial of benzonatate (Tessalon) for cough ?? F/U after imaging study Chris George MD, FACP swatch cutter Hematology/Oncology Section [facility] [place] [address] Voice recognition software used for this note; please excuse transaction manager errors. I personally reviewed past medical, surgical, family medical histories, reviewed current medications, vital signs, labs, and performed full review of systems. These are documented below the narrative for clarity and succinctness. Outpatient Medications Marked as Taking for the 01/13/20 encounter (Office Visit) with Chris George MD Medication Sig Dispense Refill ??? cholecalciferol, Vitamin D3, 1,000 unit Tablet Take 1,000 Units by mouth daily. ??? atorvastatin (LIPITOR) 40 mg Tablet 0 ??? multivitamin (THERAGRAN) Tablet Take 1 tablet by mouth daily. ??? ubidecarenone (COENZYME Q10) 100 mg Tablet Take by mouth daily. Review of Systems: Review of systems is negative for other DIE CASTING SUPERVISOR, bone, pulmonary, cardiac, GI, , extremity, neurologic, endocrine, skin, constitutional, emotional, or functional problems. Vitals Office Visit from 01/13/2020 in Hematology/Oncology at [facility] Weight 86.5 kg (190 lb 12.8 oz) Height 185.4 cm (6' 0.99) BSA (Calculated - sq m) 2.11 sq meters BMI (Calculated) 25.18 Temp 36.9 ??C (98.5 ??F) Temp src Temporal Heart Rate 71 Resp 20 BP 124/75 BP Location Right arm Patient Position Sitting SpO2 98 % Body surface area is 2.11 meters squared. Wt Readings from Last 3 Encounters: 01/13/20 86.5 kg (190 lb 12.8 oz) 12/05/19 80.7 kg (178 lb) 09/26/19 81.6 kg (180 lb) No results found for this or any previous visit (from the past 72 hour(s)). ++++++++++++++++++++++++++++++++++++++++++++++++++++ documented in this encounter Plan of Treatment Upcoming Encounters Date Type Specialty Care Team Description 10/04/2021 Office Visit Dermatology Tg Velasco MD [facility] ER DR [address] [place], [place] [address] (Wo rk) documented as of this encounter Visit Diagnoses Diagnosis Tonsil cancer Malignant neoplasm of tonsil Chronic cough Cough Fatigue, unspecified type documented in this encounter Care Teams Extract Operator Relationship Specialty Start Date End Date Gregg Garcia MD PCP - General General Internal Medicine 09/24/18 [address] [place] [address] documented as of this encounter
--- OUTSIDE RECORDS SUMMARY | 2021-09-13 17:56 | XMS_ITS | Encounter Summary ---
:1975 Author Organization [facility] [place] [address] Care Team Providers Name Role Phone Gregg Garcia MD Primary Care Provider Encounter Details Date Type Department Care Team Description 12/10/2019 Orders Only Otolaryngology at [facility] Haley Foster [place] [address] Social History Tobacco Use Types Packs/Day [...] 10/04/2021 Office Visit Dermatology Tg Velasco MD [facility] DR [address] [place], [place] [address] (Wo rk) documented as of this encounter Visit Diagnoses Diagnosis Tonsil cancer Malignant neoplasm of tonsil documented in this encounter Care Teams Caretaker Grounds Relationship Specialty Start Date End Date Gregg Garcia MD PCP - General General Internal Medicine 09/24/18 [address] [place] [address] documented as of this encounter
--- OUTSIDE RECORDS SUMMARY | 2021-09-13 17:56 | XMS_ITS | Encounter Summary ---
:1975 Author Organization [place] [place] [address] Care Team Providers Name Role Phone Gregg Garcia MD Primary Care Provider Reason for Referral Diagnostic Test (Routine) - Closed Specialty Diagnoses / Procedures Referred By Contact Refer red To Contact Radiology Diagnoses Tonsil cancer Vocal cord paralysis, unilateral complete Dysphagia, unspecified type Shoulder weakness Tongue atrophy Carmelo Zaidi PA [facility] Rad Ct Scan Procedures CT Neck Soft Tissue w Contrast (Generic) [facility] [place] [address] [place] [address] Referral ID Status Reason Start Date Expiration Date Visits V isits Requested Authorized [id number] Closed Specialty 05/11/2020 11/07/2020 1 1 Service Requested Reason for Visit Reason Comments Throat Pain vocal cord issues Encounter Details Date Type Department Care Team Description 04/16/2020 Office Visit Otolaryngology at [facility] Timothy David Tonsil cancer; [facility] Latia Weinstein MD Vocal cord paralysis, unilateral complet e; [place] [address] [facility] Dysphagia, unspecified type; [phone] [place] Shoulder damaris; OTOLARYNGOLOGY Tongue atroph y DEPT. [place], [place] [address] Social History Tobacco Use Types [...] - Inhaled Oxygen Concentration - - Weight 82.1 kg (181 lb) 04/16/2020 3:54 PM EST Height 188 cm (6' 2) 04/16/2020 3:54 PM EST Body Mass Index 23.24 04/16/2020 3:54 PM EST documented in this encounter Progress Notes Carmelo Zaidi PA - 04/16/2020 4:00 PM EST [facility] [place] FOLLOW UP NOTE Delvin Rosario is a 44 y.o. male followed for: Left Tonsil Cancer ?? 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 44 yo M presenting November 2018 with [...] PET CT negative ?? Recent presentation to [facility] with left hemitongue deviation ?? Exam: left [...] study. Discussion: morphologically not appearing to be larger.?CT neck was proposed, and findings indicated not registered representative of jose eduardo disease, but suspicious for dural AV fistula. ??An MRA head and neck was performed on 01/20/20, and this did not show any abnormality of the brain, the intracranial vasculature, carotid or vertebral arteries, AV-shunting. 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 ? He presented on 01/23/20 with complaint of [...] not show any abnormality of the brain. The CT chest did not show any new or enlarging pulmo nary nodule or lymphadenopathy. A barium swallow test on 04/02/20 showing transient holdup of barium tablet in the hypopharynx and atthe level of the aortic arch; a mild asymmetry of the piriform sinuses on phonation; and a mild pooling of contrast within the vallecular and piriform sinuses. New issues since last visit: Voice seems to get worse and better at times, but overall much worse. Feels he is not getting a tight seal in his palate; air escapes when he talks for the last 2-3 weeks. Gets liquids into his nose occasionally. Feels that the PRODUCTION OPERATIONS ENGINEER is not progressing much. Feels he gets lightheaded if he talks to much. Does also get winded pretty easily. Feels swallowing is worse as well, more coughing. Has more trouble with smaller particles currently. Seems to have a :glob of white foam in his throat that he has to cough up at night. Feels also his left shoulder is sore in the last couple of weeks. Feels that he has some lost strength and less ability. Range of motion may be a little decreased. No odynophagia. No difficulty with breathing. Some minor, occasional ear pain on the left. No hemoptysis. No dry mouth. No numbness in the tongue or throat. No loose teeth. Sense of taste is okay. No changes to his health. No fevers, chills, night sweats. Has EGD scheduled next week. Wonders if vocal cord injection would be helpful for his voice and swallowing. PROBLEM LIST Patient Active Problem List Diagnosis Code ??? Neck mass R22.1 ??? 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 Drug-induced nausea and vomiting R11.2, T50.905A ??? Dysphagia, oropharyngeal phase R13.12 ??? Trismus R25.2 ??? Vocal cord paralysis J38.00 ??? Dysphagia R13.10 PAST MEDICAL HISTORY Past Medical History: Diagnosis Date ??? High cholesterol SOCIAL HISTORY Social History Tobacco Use ??? Smoking status: Former Smoker Packs/day: 0.50 Years: 3.00 Pack years: 1.50 Types: Cigarettes Quit date: 2000 Years since quittin.1 ??? Smokeless tobacco: Never Used Substance Use Topics ??? Alcohol use: Yes Comment: once or twice a week MEDICATIONS [...] of nystagmus. NOSE Please see findings under Flexible Laryngoscopy procedure. MOUTH - Lips and gingiva pink, moist, without lesions. - Gums/dentition healthy. - Left tongue with some atrophy, and protrusion to the left; without lesions or masses. - Hard palate without lesions. PHARYNX - Soft palate without lesions. - Uvula is midline. - Oropharynx symmetric. NECK - Left neck with some post-radiation fibrosis. - Thyroid gland without masses or asymmetry. - Trachea midline without deviation. LUNGS - Clear to auscultation bilaterally without wheezes. HEART - Regular rate and rhythm without murmur. NEURO - Cranial nerves II-XII intact and symmetric. - Responds appropriately to questions. PSYCHE - Normal mood and affect. PROCEDURES Procedure: Flexible Laryngoscopy: Indications: Evaluation for mucosal lesion of the upper airway. The risks of the procedure were reviewed, and verbal consent was obtained. Topical anesthetic and decongestant applied to the nasal cavity. The scope was passed through the nasal cavity, through the nasopharynx, and into the oropharynx. The examination was recorded on the TelePack Unit and uploaded tothe Zollo Cylinder Die Machine Helper. Patient tolerated the procedure well without any complications. Nasal Cavity: Normal appearing mucosa. No obstructions or lesions noted. Nasopharynx: No lesions or masses noted. Oropharynx: Base of tongue/vallecula symmetric with normal appearing lingual tonsillar tissue. No masses, ulcerations or mucosal lesions noted. Larynx: Epiglottis is thin and non-edematous. Arytenoids are symmetric. Right vocal cord demonstrates full motion; left vocal cord with paralysis, paramedian positioning. Right vocal fold with some scant leukoplakic changes. Hypopharynx: Piriform sinuses are clear bilaterally, without evidence of masses or lesions. No significant pooling of secretions was noted. No overt laryngeal penetration or aspiration. REVIEW OF IMAGES/STUDIES ASSESSMENT/RECOMMENDATIONS Delvin Rosario is a 44 y.o. male with the above-noted history, physical exam findings, and flexible laryngoscopy findings. He appears to have worsening voice and dysphagia symptoms, as well as a new velopharyngeal insufficiency and a new shoulder pain and weakness. Dr. 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 He discussed with the patient that all imaging thus far did not show any other discernible etiology; but that he would like to obtain updatedCT imaging of the neck to be sure that there was no developing mass that could account for his symptoms. Discussed that he would have the patient return to see him on the same day to discuss findings. Discussed that he would also try to arrange for the patient to see Dr. Vences on the same day as well. He discussed that for the moment, treatment for his symptoms was therapy, with monitoring of his symptoms. He did discuss a short course of oral steroids, which may be helpful, and a prescription wasgiven for same. Discussed that he should not begin his steroid course until after his EGD study nextweek. - The patient asked whether vocal cord injection would be helpful for his voice and swallowing, and Dr. David mentioned that in his case it may not be helpful overall, as this could compromise his airway, especially in light of his episodes of difficulty with breathing. - The patient expressed understanding of these points and agreement with the plan, and all questionsthat were asked were answered to the patient's satisfaction. Plan: > Medrol dose pack. Begin after EGD study. > CT neck soft tissues w contrast. > Follow up with Dr. David and Dr. Vences on the same day. > Patient should call if their symptoms worsen, if new concerning symptoms arise, or if they haveany questions or concerns regarding their treatment. I appreciate the opportunity to be involved in Mr. Rosario's care. Carmelo Zaidi PA-C [place], [place] [address] Office 04/16/2020 Timothy David MD - 04/16/2020 4:00 PM EST ENT ATTENDING STAFF NOTE: I personally reviewed the above note including the documented history. I examined the patient, as well as reviewed personally all additional investigations. Patient is unfortunately discouraged in regards to the evolution of his lower cranial nerve symptoms. We will see whether there is might be a response to a steroid taper. He is to undergo an EGD. The steroid taper should be begun after that study. We will plan a CT of the neck to reassess the status. I agree with the outlined plan. Timothy David MD documented in this encounter Plan of Treatment Upcoming Encounters Date Type Specialty Care Team Description 10/04/2021 Office Visit Dermatology Tg Velasco MD [facility] [address] [place], [place] [address] (Wo rk) documented as of this encounter Results CT Neck Soft Tissue [...] please contact e number below. ? Narrative 05/19/2020 3:03 PM EDT EXAMINATION: CT [...] For questions regarding this report, please contact [facility] number below. Sinan Gutierrez MD IMG CT ORDERABLES documented in this encounter Visit Diagnoses Diagnosis Tonsil cancer Malignant neoplasm of tonsil Vocal cord paralysis, unilateral complet e Unilateral complete paralysis of vocal c ords or larynx Dysphagia, unspecified type Shoulder weakness Other joint derangement, not elsewhere c lassified, shoulder region Tongue atrophy Other specified conditions of the tongue Tonsil cancer Malignant neoplasm of tonsil Vocal cord paralysis, unilateral complet e Unilateral complete paralysis of vocal c ords or larynx Dysphagia, unspecified type Shoulder weakness Other joint derangement, not elsewhere c lassified, shoulder region Tongue atrophy Other specified conditions of the tongue documented in this encounter Care Teams Jig Boring Machine Operator For Metal Relationship Specialty Start Date End Date Gregg Garcia MD PCP - General General Internal Medicine 09/24/18 [address] [place] [address] documented as of this encounter
--- OUTSIDE RECORDS SUMMARY | 2021-09-13 17:56 | XMS_ITS | Encounter Summary ---
:1975 Author Organization [facility] [place] [address] Care Team Providers Name Role Phone Gregg Garcia MD Primary Care Provider Encounter Details Date Type Department Care Team Description 05/20/2020 Telephone Otolaryngology at [facility] [place] [address] Social History Tobacco Use Types Packs/Day [...] this encounter Miscellaneous Notes Telephone Encounter - Kamilah Juli Montoya - 05/20/2020 4:58 PM EDT Patient returned SB call to schedule and I got PET scan for first avail on 06/02 and OV with BG on 06/04. No PET was available on 06/04 that would work with avail appointments. Patient is ok coming [address] David can you look at 06/02 schedule and let me know if there is anyone that could be put on SB/DM schedule that day so you can see Delvin on 06/02? Also you mentioned referral but I do not see one entered, would this be for now or depending on results of images? I also discussed my clinical impression with Dr. Fuentes in radiation oncology and because of these unexplained neurologic changes we will also plan a neurology appointment/consultation, the point beingto see whether the patient should be anticoagulated. ?? Telephone Encounter - Gladys Lao - 05/20/2020 4:09 PM EDT Called pt to schedule PET CT and fuv OV with BG same day. LVM for pt to call back. documented in this encounter Plan of Treatment Upcoming Encounters Date Type Specialty Care Team Description 10/04/2021 Office Visit Dermatology Tg Velasco MD [facility] ER [address] BLANCHE DALAL[address]MAT [place], [place] [address] (Wo rk) documented as of this encounter Visit Diagnoses Not on filedocumented in this encounter Care Teams Document Specialist Relationship Specialty Start Date End Date Gregg Garcia MD PCP - General General Internal Medicine 09/24/18 [address] [place] [address] documented as of this encounter
--- OUTSIDE RECORDS SUMMARY | 2021-09-13 17:56 | XMS_ITS | Encounter Summary ---
:1975 Author Organization [facility] [place] [address] Care Team Providers Name Role Phone Gregg Garcia MD Primary Care Provider Encounter Details Date Type Department Care Team Description 04/28/2020 TH Visit Gastro[place]ology [place] [facility] [place], Eosinophilic esophagitis; (TeleHealth) [facility] Latia Shannon APRN Dysphagia, [place] [address] [facility] [phone] [place] [address] Social History Tobacco Use Types Packs/Day Years [...] Patient Instructions Patient InstructionsSiMia barton APRN - 04/28/2020 3:00 PM EST 1. Pantoprazole 20mg twice daily 30-60 minutes prior to eating morning and evening meal 2. Upper endoscopy approximately 6-8 weeks after starting pantoprazole 3. Follow up approximately 2-3 weeks after upper endoscopy documented in this encounter Progress Notes Mia Peterson APRN - 04/28/2020 3:00 PM EST [facility]LE[facility]IC[facility] Chief Complaint: Delvin Rosario is a 44 y.o. patient returning today in follow up for eosinophilic esophagitis Detailed History: 44 y.o. male with neck mass, tonsil cancer with radiation , vocal cord paralysis. During our appointment on 03/24/2020, he endorsed a history of esophageal dysphagia and globus sensation first noted at the time of tonsillar cancer diagnosis. Dysphagia worsened following [address] eatments. Recommendation included esophagram prior to EGD, EGD, combined esophageal manometry with impedance pH, and stopping NSAIDs Interval History: Dysphagia has been getting worse over the past month. Vocal cord hoarseness also getting worse. Choking and coughing resulting vomiting. Has stopped taking NSAIDs. Endorses epigastric pyrosis Review of systems: 14-point review of systems reviewed and negative except as above. Medications: Outpatient Medications Prior to Visit Medication Sig Dispense Refill ??? methylPREDNISolone (Medrol, Riley,) 4 mg Tablets, Dose Pack Use as directed on product package. 21tablet 0 ??? cholecalciferol, Vitamin D3, 1,000 unit [...] that includes Laryngoscopy, Dirct, Op Scope, Biopsy (19329) (Bilateral, 12/10/2018); Biopsy Oropharynx (56366) (Bilateral, 12/10/2018); Nasal Endoscopy,Dx (63313) (Bilateral, 12/10/2018); and Upper GI Endoscopy, Diagnostic (64399) (N/A, 04/06/2020). Family History: family history includes Esophageal Cancer [...] 4. Mod barium swallow 02/02/30 done at [facility]; no evidence of aspiration 5. Esophagram 04/02/2020; transient hold-up of barium tablet and hypopharynx and at the level of the aortic arch. 6. EGD 04/06/2020; benign-appearing esophageal stenosis. Nonobstructing Schatzki ring. Normal stomach.Normal duodenum. 7. EGD 04/22/2020; non-obstructing schatzki ring. Dilated to 19mm. Normal stomach. Normal duodenum. Bx: Up to 18 eosinophils per hpf. Assessment/Plan: Mr. Rosario is a 44 y.o. patient with eosinophilic esophagitis. #Eosinophilic esophagitis; EGD 04/22/2020 consistent with eosinophilic esophagitis. A nonobstructing Schatzki ring was found. This was dilatated. His swallowing has become more bothersome since her lastappointment. We discussed the etiology, pathophysiology, diagnostic, and treatment options for eosino philic esophagitis. We discussed how the next step is to start a proton pump inhibitor and repeat EGD approximately 6 to 8 weeks after starting the medication. If eosinophils are still present, the next Step is the EOE elimination diet. #Dysphagia; given his history of radiation, there may be another motility disorder contributing to his symptoms. I have previously ordered a combined esophageal manometry and impedance pH off medications. Unfortunately, we are booking out into the late fall of this year for this procedure. Recommendations: -Pantoprazole 20 mg twice daily 30 to 60 minutes prior to eating morning and evening meal -EGD with IV sedation approximately 6 to 8 weeks after starting pantoprazole -Follow-up with me approximately 2 to 3 weeks after upper endoscopy Mia Peterson APRN [facility] [place] [address] documented in this encounter Plan of Treatment Upcoming Encounters Date Type Specialty Care Team Description 10/04/2021 Office Visit Dermatology Tg Velasco MD [facility] ER DR [address]HE [address] [facility] [place] [place] [address] (Wo rk) Scheduled Orders Name Type Priority Associated Diagnoses Order S chedule ENDOSCOPY CASE Procedures Routine Eosinophilic eso phagitis Ordered: 04/28/2020 REQUEST: EGD, UPPER Dysphagia, unspecifie d GI ENDOSCOPY type documented as of this encounter Visit Diagnoses Diagnosis Eosinophilic esophagitis Dysphagia, unspecified type documented in this encounter Care Teams Public Address Systems Mechanic Relationship Specialty Start Date End Date Gregg Garcia MD PCP - General General Internal Medicine 09/24/18 [address] [place] [address] documented as of this encounter
--- OUTSIDE RECORDS SUMMARY | 2021-09-13 17:56 | XMS_ITS | Encounter Summary ---
:1975 Author Organization [facility] [place] [address] Care Team Providers Name Role Phone Gregg Garcia MD Primary Care Provider Encounter Details Date Type Department Care Team Description 04/22/2020 [place] [facility] [place] Beckwith, EGD WITH BIOPSY ([facility] Latia quiros MD [address]) [place] [address] [facility] [phone] GASTROENTEROLOGY DEPT. [place], [place] [address] Social History Tobacco Use Types [...] Sign Reading Time Taken Comments Blood Pressure 91/53 04/22/2020 3:10 PM EST Pulse 67 04/22/2020 1:11 PM EST Temperature 37.4 ??C (99.3 ??F) 04/22/2020 1:11 PM EST Respiratory Rate 15 04/22/2020 3:10 PM EST Oxygen Saturation 96% 04/22/2020 3:10 PM EST Inhaled Oxygen Concentration - - Weight 81.6 kg (180 lb) 04/22/2020 1:11 PM EST Height 188 cm (6' 2) 04/22/2020 1:11 PM EST Body Mass Index 23.11 04/22/2020 1:11 PM EST documented in this encounter Discharge Instructions Discharge Juan Selby RN - 04/22/2020 2:42 PM EST Upper [...] the day after the procedure, use an yexn-qva-ccpqwpu spray to numb yourthroat. Sucking on throat [...] occurs, please contact your Doctor. Please call [phone] before 8pm Mon-Fri with problems, questions or concerns. If you call after 8pm or on weekends, call the Hospital at [phone] and ask to speak to the Stock Clipper personal fitness manager and the dye range operator cloth will contact that person for you. When should you call for help? Call [phone] anytime you think you may need emergency [...] any problems. Where can you learn more? [facility] View your After Visit Summary and more online at [email or web address] If you would like to [...] cost to you. Content Version: 12.2 ?? [id number] [employer]. Care instructions adapted under license by [facility]. If you have questions about a medical condition or this instruction, always ask your healthcare professional. [employer] disclaims any warranty or liability for your [...] Beckwith MD - 04/22/2020 2:16 PM EST [facility] [place] Note Patient Name: Delvin Rosario : [id number] MR#: [id number] Case Date: 04/22/2020 Surgeon: Surgeon(s) and Role: [...] is documented under the Procedure section of [facility]. documented in this encounter Plan of Treatment Upcoming Encounters Date Type Specialty Care Team Description 10/04/2021 Office Visit Dermatology Tg Velasco MD [facility] DR [address] [place], [place] [address] (Wo rk) documented as of [...] 2:30 PM 2:30 EST PM EST Narrative [facility] - 04/22/2020 2:30 PM EST Specimen requisition ordered. ??Separate Pathology report to follow Mli Beckwith MD PATHOLOGY/CYTOLOGY ORDERABLE S Performing Organization Address [facility]/[place] [address] Specimen to Pathology (04/22/2020 2:30 PM EST) Specimen Anatomical Collection Method Collection Time Receive d Time (Source) Location / / Volume Laterality AP Specimen 04/22/2020 2:30 PM 2:30 EST PM EST Narrative [facility] - 04/22/2020 2:30 PM EST Specimen requisition ordered. ??Separate Pathology report to follow Mil Beckwith MD PATHOLOGY/CYTOLOGY ORDERABLE S Performing Organization Address [facility] [place] [address] Surgical Pathology Report (04/22/2020 2:29 PM EST) Component Value Ref Test Analysis Performed At [facility] Range Method Time Signature Surgical [id number] ? Location: 4T; EA06; A [facility] Report The signing pathologist has (i) examined the relevant preparation(s) for the [facility] specimen(s) and (ii) rendered or confirmed [...] PhD, Dotty Verified: ??04/24/2020 ?Pathologist Performed at: ??-[facility] Dept. [place]ology, [place], [place] DISCUSSION A - The differential diagnos [...] Organization Address City/State/ZIP [place] [address] UPPER GI ENDOSCOPY (04/22/2020 1:47 PM EST) Component Value Ref Test Analysis Performed At [facility] gist Range Method Time Signature UPPER GI [facility] ENDOSCOPY Endoscopy Procedure Date: 04/22/2020 1:47 PM ? Patient Name: Delvin Rosario ? Date of : 1975 ? Age: 44 ? Order #: [id number] ? Instrument Name: [id number] ? Procedure: ? Upper GI endoscopy Indications: ? Dysphagia Providers: ? Mil Beckwith MD, Anju chavez, ? Brandon Wilde RN, Kae Benson. ? Félix, Calendar Control Clerk Blood Bank Referring : ?Gregg Garcia Medicines: ? Monitored Anesthesia Care Complications: ? No immediate complications. Procedure: ? Pre-Anesthesia Assessment: ? - [place] Protocol: ? - Pre-procedure Verification: Prior ? [...] the physician, [place] e nurse, ? the head sugar reprocess operator and the techn ician in ? the [...] Procedure Code(s): ?? --- Professional --- ? 09318, Esophagogastroduodenos copy, ? flexible, transoral; with ins ertion ? of guide wire followed by jose cruz sykes of ? dilator(s) through esophagus over ? guide wire Diagnosis Code(s): ?? --- Professional --- ? K22.2, Esophageal obstruction ? R13.10, Dysphagia, unspecifie d CPT copyright 2019 [employer]. All rights reserved. The codes documented in this report are preliminary and upon financial analyst accountant review may be revised to meet current [...] Procedure) documented in this encounter Care Teams Small Wind Energy Installer Relationship Specialty Start Date End Date Gregg Garcia MD PCP - General General Internal Medicine 09/24/18 [address] [place] [address] documented as of this encounter
--- OUTSIDE RECORDS SUMMARY | 2021-09-13 17:56 | XMS_ITS | Encounter Summary ---
:1975 Author Organization [facility] [place] [address] Care Team Providers Name Role Phone Gregg Garcia MD Primary Care Provider Reason for Visit Reason Onset Date Comments Reminder Appointment 03/24/2020 Encounter Details Date Type Department Care Team Description 03/24/2020 Telephone Gastroenterology at [facility] Nevin Hung Reminder Appointment [facility] [place] [address] Social History Tobacco Use Types Packs/Day [...] this encounter Miscellaneous Notes Telephone Encounter - Nevin Hung CCMA - 03/24/2020 11:01 AM EST Called patient to review medications and allergies for their upcoming gastroenterology Type of Appointment: Telehealth appointment. Reach Patient during MA Check: Yes Notes for the provider: Notes for the nurse: documented in this encounter Plan of Treatment Upcoming Encounters Date Type Specialty Care Team Description 10/04/2021 Office Visit Dermatology Tg Velasco MD [facility] ER [address] [place], [place] [address] (Wo rk) documented as of this encounter Visit Diagnoses Not on filedocumented in this encounter Care Teams Processing Archivist Relationship Specialty Start Date End Date Gregg Garcia MD PCP - General General Internal Medicine 09/24/18 [address] [place] [address] documented as of this encounter
--- OUTSIDE RECORDS SUMMARY | 2021-09-13 17:56 | XMS_ITS | Encounter Summary ---
:1975 Author Organization [facility] [place] [address] Care Team Providers Name Role Phone Gregg Garcia MD Primary Care Provider Reason for Referral Diagnostic Test (Routine) - Closed Specialty Diagnoses / Procedures Referred By Contact Refer red To Contact Radiology Diagnoses Tonsil cancer Vocal cord paralysis, unilateral complete Carmelo Zaidi PA [facility] Rad Ct Scan Procedures CT Chest w Contrast [facility] [place] [address] [place] [address] Referral ID Status Reason Start Date Expiration Date Visits V isits Requested Authorized [id number] Closed Specialty 01/28/2020 07/26/2020 1 1 Service Requested Reason for Visit Reason Comments Follow-up throat cancer, recently has lost voice Encounter Details Date Type Department Care Team Description 01/23/2020 Office Visit Otolaryngology at [facility] Timothy David Tonsil cancer; [facility] Latia Weinstein MD Vocal cord [place], [place] [address] [facility] [phone] [facility] [place], [place] [address] Social History Tobacco Use Types [...] - Inhaled Oxygen Concentration - - Weight 83 kg (183 lb) 01/23/2020 4:27 PM EST Height 188 cm (6' 2) 01/23/2020 4:27 PM EST Body Mass Index 23.5 01/23/2020 4:27 PM EST documented in this encounter Progress Notes Carmelo Zaidi PA - 01/23/2020 4:30 PM EST [facility] OTOLARYNGOLOGY FOLLOW UP NOTE Delvin Rosario is a 44 y.o. male followed for: Left Tonsil Cancer ?? HPI??44 y.o.??male??with [id number] squamous cell carcinoma of the left tonsil, p16 (+), <??5 PY smoking history. Definitive UNCRATER completed 03/11/19. ?? 44 yo M presenting November 2018 [...] neck was proposed, and findings indicated not freight representative of jose eduardo disease, but suspicious for dural AV fistula. An MRA head and neck was performedon 01/20/20, and this did not show any abnormality of the brain, the intracranial vasculature, carotid or vertebral arteries, AV-shunting. 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 He returns today for recent concern regarding his voice and his swallowing. New issues since last visit: Feels he is doing well. Feels his voice is weaker than typical, however. Feels that his voice weakens if he talks for very long. Feels his voice is much worse since his last visit. Has a chronic cough for the last 3 months. Sometimes will cause some wheezing. Cough is worse when he eats and after he eats. Can cause him to have coughing fits and sometimes vomiting. Liquids go down well. Soft foods go down well. Large pieces go down well. Stiffer foods, or small-particles seem to get caught up. Has to take food with sips of water. Tried oral antihistamines, but didn't seem to help. Saw FILAMENT SHAPER, who felt could be related to reflux. Tried an OTC PPI for over a month, but didn't seem to help. Was also presecribed ashok benoit, but didn't seem to help. Is having a swallow study with a speech pathologist at the end of the month in [facility]. PROBLEM LIST Patient Active Problem List Diagnosis [...] Types: Cigarettes Quit date: 2000 Years since quittin.8 ??? Smokeless tobacco: Never Used Substance Use [...] - Height 188 cm (6' 2), weight 83 kg (183 lb). GENERAL - Well dressed and well nourished. - Breathing comfortably without stridor. - No acute distress. - Voice hoarseness noted, slightly breathy quality. FACE - Full and symmetric facial movement. [...] without lesions. - Gums/dentition healthy. - Tongue and floor of mouth soft without lesions or masses. - Hard palate without lesions. PHARYNX - Post-radiation mucosal changes noted. NECK - Soft, supple, without significant lymphadenopathy. - [...] on the [employer] and uploaded tothe [employer]. Patient tolerated the procedure well without any complications. Nasal Cavity: Normal appearing mucosa. No obstructions or lesions noted. Nasopharynx: No lesions or masses noted. Oropharynx: Post-radiation mucosal changes noted. No masses, ulcerations or mucosal lesions noted. Larynx: Epiglottis is thin and non-edematous. Arytenoids are symmetric. Right vocal cord demonstrates full motion; left vocal cord paralysis noted, with median positioning. Hypopharynx: Piriform sinuses are clear bilaterally, without evidence of masses or lesions. No significant pooling of secretions was noted. No overt laryngeal penetration or aspiration. REVIEW OF IMAGES/STUDIES ASSESSMENT/RECOMMENDATIONS Delvin Rosario is a 44 y.o. male with the above-noted history, physical exam findings, and flexible laryngoscopy findings. Discussed with the patient that his recent speech and swallowing difficulties stem from his current left vocal cord paralysis. Dr. David also met with the patient and reviewed the patient's flexible laryngoscopy study, and agreed with that assessment. He discussed further workup for this, including obtaining a CT chest to assess the course of his recurrent laryngeal nerve, and that further workup of the head and neck did not appear to be necessary due to his recent MRI imaging of the same that did not indicate concerning lesions. Discussed that if there is no explanation for the paralysis on imaging, that there is a possibility that the mobility could recover spontaneouslyover time, and that it can take many months for this to happen. Discussed also some options for surgical intervention to help his voice in the future should his vocal cord mobility not recover. He discussed his continuing to use his voice as needed, and to take more time with his swallowing, especially thin liquids, in order to avoid aspiration. - The patient expressed understanding of these points and agreement with the plan, and all questionsthat were asked were answered to the patient's satisfaction. Plan: > CT chest w contrast. I will call the patient with results and any further recommendations. > Patient should call if their symptoms worsen or fail to improve, if new concerning symptoms arise, or if they have any questions or concerns regarding their treatment. I appreciate the opportunity to be involved in Mr. Rosario's care. Carmelo Zaidi PA-C [place], [place] [address] Office 01/23/2020 Timothy David MD - 01/23/2020 4:30 PM EST ENT staff note: We are following this 44-year-old patient with a history [id number] squamous cell carcinoma of the lefttonsil, p16 (+), <??5 PY smoking history. Definitive UNCRATER completed 03/11/19. He reports a recent onset of hoarseness of the voice along with some coughing when he drinks liquids very quickly. This hasnot led to any change in his weight. He still able to drink liquids, he just has to be careful. No history of bronchitis or pneumonia. He just completed imaging earlier today in order to reassess the status of the possible node into the left skull base region which I personally reviewed. He underwent an MRI and MRA. A complete otolaryngologic exam is completed and the only pertinent finding is of the patient havinga husky voice. There is no stridor. He is well-perfused. He communicates in full sentences. I personally reviewed the study showing the followin. Normal appearance of the brain. ?? 2. Normal intracranial vasculature. ?? 3. The extracranial carotid and vertebral arteries have a normal appearance. ?? 4. No evidence for arterial venous shunting within the limitations of an MRI/MRA. ?? 5. 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 ?? I actively participated in the patient's flexible laryngoscopy and he does have significant weaknesswith almost paralysis of his left vocal cord in the median position with good glottic closure. No focal masses identified within the larynx or subglottis. We will plan a CT of the chest to assess completely in the length of the recurrent laryngeal nerve. Follow-up visit to be arranged at that point. Patient has a known hypoglossal nerve weakness which isfelt to be potentially secondary to his chemo radiation therapy. It is possible that he has vocal cord weakness due to the same process, however we discussed that this could also be idiopathic vocal cord paralysis. we need to be absolutely sure and that imaging is indicated.. documented in this encounter Plan of Treatment Upcoming Encounters Date Type Specialty Care Team Description 10/04/2021 Office Visit Dermatology Tg Velasco MD [facility] ER DR [address] [place], [place] [address] (Wo rk) documented as of this encounter Results CT Chest w Contrast [...] e number below. ? Electronically signed by: Evangelina Harding MD, [facility] ([phone]), at 02/07/2020 10:07 AM Narrative 02/07/2020 10:07 AM EST EXAMINATION: CT CHEST W CONTRAST CLINICAL HISTORY: Vocal cord paralysis TECHNIQUE: Chest CT with 60 ml of Omnipa que 350 COMPARISON: PET/CT 11/29/2019 FINDINGS: Pulmonary parenchyma: Small calcified gr anulomata in the left upper lobe and left lower lobe are stable dating back t o November 2019. Airways: Central and segmental airways [...] lower lobe are stable dating back t o November 2019. Airways: Central and segmental airways [...] For questions regarding this report, please contact [facility] number below. Electronically signed by: Evangelina Harding MD, [facility] ([phone]), at 02/07/2020 10:07 AM Sinan Gutierrez MD IMG CT ORDERABLES documented in this encounter Visit Diagnoses Diagnosis Tonsil cancer Malignant neoplasm of tonsil Vocal cord paralysis, unilateral complet e Unilateral complete paralysis of vocal c ords or larynx Tonsil cancer Malignant neoplasm of tonsil Vocal cord paralysis, unilateral complet e Unilateral complete paralysis of vocal c ords or larynx documented in this encounter Care Teams Kindergarten Tutor Relationship Specialty Start Date End Date Gregg Garcia MD PCP - General General Internal Medicine 09/24/18 [address] [place] [address] documented as of this encounter
--- OUTSIDE RECORDS SUMMARY | 2021-09-13 17:56 | XMS_ITS | Encounter Summary ---
:1975 Author Organization [facility] [place] [address] Care Team Providers Name Role Phone Gregg Garcia MD Primary Care Provider Encounter Details Date Type Department Care Team Description 03/25/2020 Telephone Gastroenterology at [facility] [place] [address] Social History Tobacco Use Types Packs/Day [...] this encounter Miscellaneous Notes Telephone Encounter - [place] - 03/25/2020 12:22 PM EST Delvin Rosario [id number] Diagnosis/Indication: dysphagia with previous hx tonsillar cancer with radiation to neck 1. Have you ever had a/an Upper Endoscopy before? No 2. Do you take any Blood Thinners? No 3. Do you have a Pacemaker or Defibrillator device? No 4. Are you a diabetic? No 5. Do you have any Allergies to Eggs, Latex or Medications? Yes: See chart 6. Do you take any Oral Iron [...] have changed* Estimated body mass index is 24.19 kg/m?? as calculated from the following: Height as of 02/07/20: 188 cm (6' 2). Weight as of 03/18/20: 85.5 kg (188 lb 6.4 oz). Age:44 y.o. documented in this encounter Plan of Treatment Upcoming Encounters Date Type Specialty Care Team Description 10/04/2021 Office Visit Dermatology Tg Velasco MD [facility] [address] [place], [place] [address] (Wo rk) documented as of this encounter Visit Diagnoses Not on filedocumented in this encounter Care Teams Manufacturing Electrician Relationship Specialty Start Date End Date Gregg Garcia MD PCP - General General Internal Medicine 09/24/18 [address] [place] [address] documented as of this encounter
--- OUTSIDE RECORDS SUMMARY | 2021-09-13 17:56 | XMS_ITS | Encounter Summary ---
:1975 Author Organization [place] [place] [address] Care Team Providers Name Role Phone Gregg Garcia MD Primary Care Provider Reason for Visit Consultation (Urgent) - Closed Specialty Diagnoses / Procedures Referred By Contact Refer red To Contact Neurology Diagnoses Tonsil cancer Mihir Vences MD [facility] [place], [place] Neurology [address] [place] [address] D [facility] [place] [address] [place] [address] Referral ID Status Reason Start Date Expiration Date Visits V isits Requested Authorized [id number] Closed Consult, 05/22/2020 05/22/2021 1 1 Test & Treat Encounter Details Date Type Department Care Team Description 05/26/2020 Office Visit Neurology at [facility] [place] Miguelina Shannon, Cranial neuropathies, [place] [address] NEUROLOGY DEPT [phone] [place], [place] [address] (Wo rk) Social History Tobacco [...] Sign Reading Time Taken Comments Blood Pressure 128/79 05/26/2020 12:48 PM EDT Pulse 71 05/26/2020 12:48 PM EDT Temperature - - Respiratory Rate - - Oxygen Saturation - - Inhaled Oxygen Concentration - - Weight 81.6 kg (180 lb) 05/26/2020 12:48 PM EDT reporte d Height 185.4 cm (6' 1) 05/26/2020 12:48 PM EDT reporte d Body Mass Index 23.75 05/26/2020 12:48 PM EDT documented in this encounter Progress Notes Miguelina Shannon MD - 05/26/2020 1:00 PM EDT Images from the original note were not included. [facility] Department of Neurology, Neuromuscular Consultation Service I had the opportunity to evaluate Delvin Rosario in the Neurology clinic for the first time today,05/26/20 at the kind request of Dr. Fuentes. REASON FOR CONSULTATION: Increasing cranial nerve palsies after radiotherapy for HN cancer, please evaluate HPI: Delvin Rosario is a 45 y.o. 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 Completed CTx and felt very poorly, Treatment altered taste. HAs by the summer. Tongue: left, weakness. Atrophy and deviation. Uncertain re: taste - altered and coming back due to RT. Difficult to move food around in his mouth. Dysphagia - needs a lot of water to force food down. Better during the summer - worse now. Worse with onset of VC paralysis. Chronic cough - this exacerbates difficulty swallowing. GI attributing this to eosinophilic esophagitis and dysphagia. Trouble with swallowing started before RT - October 2018; food would get caught difficulty End of November: fairly rapid - difficulty with calling loudly. This progressed to baseline hoarseness, VC paralyzed. Air escaping from his nose. Unable to blow out a birthday candle. Soft palate dysfunction.VC paralysis diagnosed by scope late in the fall - unchanged with repeat U/S. Tinnitus since midway through chemotherapy - unchanged. No distal extremity N/T. This was present during CTx but it has resolved. Fingers of 4th and 5th digits fall asleep. This is bilateral but he can't determine when o asymmetry. Pain in the base of his skull when he does certain things. Cough or straining - increase in back of skull pain. Pian in the left hindu - part of the early GUTIERREZ. HAs very bad in the summer - present most AMs when he wakes up - responsive to Ibuprofen Some stiffness in the right shoulder. Congestion in his nose. Not in the eyes. No discharge from nose. Congested in AM - this is when there is GUTIERREZ. Dry mouth more than hypersalivation - dry mouth severe with RT. Drool a bit out of the left. Asymmetry of face. Palpitations for many years - not changing. Breathing - dyspnea related to the VC paralysis. Lightheadedness during RT - syncopal event. Dizziness simply from losing air when he speaks. GUTIERREZ not too bad because it is just in the AM - this was a shift from the summer when it was severe. Past Medical History: Past Medical History: Diagnosis Date ??? High cholesterol Past surgical history: Past Surgical History: Procedure Laterality Date ??? PRO BIOPSY OROPHARYNX Bilateral 12/10/2018 BIOPSY, OROPHARYNX (WRVU 1.44) performed by Timothy David MD at [facility] MAIN OR ??? PRO DILATE ESOPHAGUS, OVER GUIDE N/A 04/22/2020 ESOPHAGEAL DILATION OVER GUIDE WIRE (WRVU 1.51) performed by Mil Beckwith MD at [facility] ENDOSCOPY ??? PRO LARYNGOSCOPY, DIRCT, OP SCOPE, BIOPSY Bilateral 12/10/2018 LARYNGOSCOPY, MICROSCOPE, WITH BIOPSY (WRVU 3.55) performed by Timothy David MD at [facility] MAIN OR ??? PRO NASAL ENDOSCOPY, DX Bilateral 12/10/2018 NASAL ENDOSCOPY DIAGNOSTIC, UNILATERAL OR BILATERAL (WRVU 1.1) performed by Timothy David MD at [facility] MAIN OR ??? PRO UPPER GI ENDOSCOPY, BIOPSY N/A 04/22/2020 EGD WITH BIOPSY (WRVU 2.49) performed by Mil Beckwith MD at [facility] ENDOSCOPY ??? PRO UPPER GI ENDOSCOPY, DIAGNOSTIC N/A 04/06/2020 EGD, UPPER GI ENDOSCOPY performed by Juan Carrillo MD at [facility] MAIN OR Medications: Your Medications Accurate as of May 26, 2020 12:53 PM. If you have any questions, ask your nurse or doctor. Continued medications, unchanged Dose Details atorvastatin 40 mg Tab Commonly known as: Lipitor Refills: 0 cholecalciferol (Vitamin D3) 1,000 unit Tab Commonly known as: Vitamin D3 Take 1,000 Units by mouth daily. 1,000 Units Refills: 0 coenzyme Q10 100 mg Tab Take by mouth daily. Refills: 0 methylPREDNISolone 4 mg Dspk Commonly known as: Medrol (Riley) Use as directed on product package. Quantity: 21 tablet Refills: 0 multivitamin Tab Commonly known as: THERAGRAN Take 1 tablet by mouth daily. 1 tablet Refills: 0 pantoprazole EC 20 mg Tbec Commonly known as: Protonix Take 1 tablet by mouth 2 times daily. 20 mg Quantity: 180 tablet Refills: 3 Allergies: Allergies Allergen Reactions ??? Magnesium Salicylate Rash Family history: Family History Problem Relation Age of Onset ??? Esophageal Cancer Paternal Uncle ??? Kidney Cancer Half-Brother Social history: Social History Socioeconomic History ??? Marital status: Spouse name: Shena ??? Number of children: 2 ??? Years of education: Not on file ??? Highest education level: Not on file Occupational History ??? 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 Smoking status: Former Smoker [...] Gatherings with Friends and Family: ??? Attends Zoroastrianism Services: ??? Active Member of Clubs or Organizations: ??? Attends Club or Organization Meetings: ??? Marital Status: Intimate Partner Violence: ??? Fear of Current or Ex-Partner: ??? Emotionally Abused: ??? Physically Abused: ??? Sexually Abused: Physical Exam: BP 128/79 (BP Location (NBP): Left arm, Patient Position: Sitting, BP Cuff Sizes: Adult (25-34 cm)) Pulse 71 Ht 185.4 cm (6' 1) Comment: reported Wt 81.6 kg (180 lb) Comment: reported BMI 23.75 kg/m?? Appearance: The patient is a healthy-appearing male who appears of stated age and comes to his visitunaccompanied. he appears slender but well developed. HEENT: oral mucosa moist, no thrush, no carotid bruits Cardiac: RRR S1S2 no murmur Extremities: no edema, color and temperature symmetric and normal Mental status: The patient is alert and calm with MS intact to detailed questioning regarding his history. his speech and language is intact to normal conversation and examination commands; speech fluent. his attention and concentration allow for a full evaluation without evidence for deficit. Short-te rm and long-term memory are normal. Cranial nerves: PERRL, no nystagmus, EOMI without reported diplopia. Facial movements are asymmetricas noted below: Facial asymmetry with smile and at baseline. Relatively symmetric cheek puff and eyelid closure. No ptosis. There is no eyelid myotonia or Vargas's twitch. Hearing is normal to finger rub. Palatal elevation reduced on the left. No gag. Shoulder shrug reduced on the left. Tongue protrudes to the left with marked hemiatrophy. Facial sensation intact. No evidence of dysarthria but voice is hoarse. Motor: NE NF SA EE EF WE WF FA FF Luis Angel Right 5 5 5 5 5 5 5 5 5 5 Left 5 5 4+ 5 5 5 5 5 5 5 IR/ER full; no scapular wining appreciated Sloped on the right but O/W intact HF HE KE KF HAB HADD ADF APF I E Right 5 nt 5 5 nt nt 5 nt 5 5 Left 5 nt 5 5 nt nt 5 nt 5 5 There is subtle interosseous atrophy L>R atrophy but no fasciculations. There is no myoclonus, tremor, change in tone, or drift. Sensory: Vibration: Ltoe 5.5 Rtoe 7 LMM 6.5 RMM 6.5 Lknee 8 Rknee 8 LDIP2 8 RDIP2 8 LDIP5 8 RDIP5 8 Pin: preserved; no dermatomal or patterned loss of pin sensation Proprioception: preserved distally or proximally Coordination: Intact with no evidence of dysmetria, dysarthria or tremor. Bqcuft-mv-npgl test is normal. Gait and station: Normal stance; normal gait; able to walk on heels and toes and perform tandem gait; Romberg negative. Tendon reflexes: biceps triceps BR patellar AJ Plantars Right 1 1+ 1 2 2 down Left 1+ 1 1 2 2 Down FF DTRs are preserved and symm Assessment: Delvin Rosario is a 45 y.o. [...] after ganglioside antibody has been completed by MIGUELINA LIU I spent 60 minutes of face-face time with the patient, with 31 minutes spent in counseling and coordination of care, excluding the time spent in performing electrodiagnostic studies. documented in this encounter Plan of Treatment Upcoming Encounters Date Type Specialty Care Team Description 10/04/2021 Office Visit Dermatology Tg Velasco MD [facility] [address] [place], [place] [address] (Wo rk) documented as of this encounter Procedures Procedure Name Priority Date/Time Associated Diagnosis Comme [facility] VENIPUNCTURE Routine 05/26/2020 2:36 PM Cranial neuropathie s, Results for this EDT multiple procedure are i n the results section. documented in this encounter Results Ganglioside Antibodies (05/26/2020 2:36 PM EDT) [facility] Method Time Signature Ganglioside See Scan [facility] Antibodies Report [facility] Comment: Test performed by MARISSA scherer, [address] [place] [address] Specimen Anatomical Collection Method Collection Time Receive d Time (Source) Location / / Volume Laterality Blood specimen 05/26/2020 2:36 PM 021 8:52 (specimen) EDT AM EDT Narrative This result has an attachment that is no t available. Resulting Agency Comment Spec In Lab Miguelina Shannon MD IMMUNOLOGY ORDERABLES Performing Organization Address City/State/[place] [address] documented in this encounter Visit Diagnoses Diagnosis Cranial neuropathies, multiple Unspecified disorder of cranial nerves documented in this encounter Care Teams Poultry Boner Relationship Specialty Start Date End Date Gregg Garcia MD PCP - General General Internal Medicine 09/24/18 [address] [place] [address] documented as of this encounter
--- OUTSIDE RECORDS SUMMARY | 2021-09-13 17:57 | XMS_ITS | Encounter Summary ---
:1975 Author Organization [facility] [place] [address] Care Team Providers Name Role Phone Gregg Garcia MD Primary Care Provider Encounter Details Date Type Department Care Team Description 05/08/2019 Orders Only Radiation Oncology at [facility] Mihir MD [address] RADIATION ONCOLOGY [place], [place] [address] [place] [address] [phone] (Wo rk) Social History Tobacco Use Types [...] 10/04/2021 Office Visit Dermatology Tg Velasco MD [facility] [address] [place], [place] [address] (Wo rk) documented as of this encounter Visit Diagnoses Not on filedocumented in this encounter Care Teams Steward/Stewardess Club Car Relationship Specialty Start Date End Date Gregg Garcia MD PCP - General General Internal Medicine 09/24/18 [address] [place] [address] documented as of this encounter
--- OUTSIDE RECORDS SUMMARY | 2021-09-13 17:57 | XMS_ITS | Encounter Summary ---
:1975 Author Organization [facility] [address] Care Team Providers Name Role Phone Gregg Garcia MD Primary Care Provider Reason for Visit Reason Comments IV Medication Hydration Encounter Details Date Type Department Care Team Description 04/24/2019 Infusion Hematology Oncology at [facility] ug-induced nausea and vomiting; [facility] Tonsil cancer [address] [place] [address] [phone] Social History Tobacco Use Types Packs/Day [...] Sign Reading Time Taken Comments Blood Pressure 111/60 04/24/2019 9:09 AM EST Pulse 69 04/24/2019 9:09 AM EST Temperature 36.7 ??C (98.1 ??F) 04/24/2019 9:09 AM EST Respiratory Rate 16 04/24/2019 9:09 AM EST Oxygen Saturation 100% 04/24/2019 9:09 AM EST Inhaled Oxygen Concentration - - Weight 76.8 kg (169 lb 6.4 oz) 04/24/2019 9:09 AM EST Height 188 cm (6' 2.02) 04/24/2019 9:09 AM EST Body Mass Index 21.74 04/24/2019 9:09 AM EST documented in this encounter Progress Notes Jennifer Pineda, RN - 04/24/2019 9:00 AM EST INFUSION THERAPY ADMINISTRATION NOTES DIAGNOSIS: Tonsillar cancer REASON FOR VISIT: Hydration SUBJECTIVE: Delvin offers no complaints. OBJECTIVE: VSS. Weight stable. IV ACCESS: PIV left hand REACTIONS (DESCRIPTION, TIME, INTERVENTION AND EFFECTIVENESS) none ASSESSMENT: Delvin was awake, alert and tolerated treatment well. PIV discontinued prior to dismissal. PLAN: Return to clinic per routine. documented in this encounter Plan of Treatment Upcoming Encounters Date Type Specialty Care Team Description 10/04/2021 Office Visit Dermatology Tg Velasco MD [facility] ER [address] BLANCHE DALAL-DERMAT [place], [place] [address] (Wo rk) documented as of this encounter Visit Diagnoses Diagnosis Drug-induced nausea and vomiting Nausea with vomiting Tonsil cancer Malignant neoplasm of tonsil documented in this encounter Administered Medications Inactive Administered Medications - up to 3 most recent administrations Medication Order MAR Action Action Date Dose Rate Site sodium chloride 0.9% New Bag 04/24/2019 9:27 AM EST 1,000 mLs 999 mL/hr infusion 1,000 mL (1 L), at 500 mL/hr, Intravenous, ONCE, 1 dose, On Mon04/24/19 at 0915 documented in this encounter Care Teams Contract Administration Specialist Relationship Specialty Start Date End Date Gregg Garcia MD PCP - General General Internal Medicine 09/24/18 [address] [facility] [place] [address] documented as of this encounter
--- OUTSIDE RECORDS SUMMARY | 2021-09-13 17:57 | XMS_ITS | Encounter Summary ---
:1975 Author Organization [facility] Address [place] [id number] Care Team Providers Name Role Phone Gregg Garcia MD Primary Care Provider Encounter Details Date Type Department Care Team Description 04/24/2019 Office Visit Radiation Oncology at Mihir Martin, Tonsillar cancer Robbie SARMIENTO [address] [place] [address] RADIATION ONCOLOGY [phone] [place] [address] (Wo rk) Social History Tobacco Use Types [...] documented as of this encounter Progress Notes Mihir Vences MD - 04/24/2019 2:00 PM EST FOLLOW UP VISIT NOTE Delvin Rosario is a 43 y.o. male with [id number] squamous cell carcinoma of the left tonsil, p16 (+), < 5 PY smoking history. Definitive HOST AND HOSTESS completed 03/11/19. Changes in medical condition Pain: pain not present at times; pain can escalate significantly with activity (eating, talking, yawning). Localized to the posterior oropharynx. Using Tylenol prn, Oxycodone (every other day). Secretions/Dryness: improved dysgeusia, still significant xerostomia (BSSW, water, mucinex). Thick secretions improved. Swallowing Function: no coughing or choking. Nutrition: Eating soft solids (yogurt) and protein shakes. Skin: no issues GI: --Constipation/Diarrhea: no constipation --N/V: no nausea Hearing: stable increased tinnitus Nutrition Assessment: Weight : 94.5 kg initial Change: 76.4 -> 76.7 Objective: There were no vitals taken for this visit. SKIN: no skin erythema, MUCOSA: small volume mucositis posterior OP, improved, no thrush NECK: submental lymphedema. Assessment: Improvement in toxicity, but still dysphagia and pain. s/p BREAKER LAYER, he has improved over the past week re swallowing but is still not eating larger volume soft solids. I will see him in two weeks and if hehas not progressed we will get an MBS. CTCAE TOXICITY GRADES (see below for hernandez): Site Grade Skin 0 Xerostomia 2 Pharyngeal Mucositis 2 Dysphagia 1 Hoarseness 0 Plan: ?? Pain control: ?? OTC medications prn. Oxycodone prn ?? Skin: ?? Jeans cream prn ?? Mucositis: ?? Pain control: see above ?? Oral hygiene consisting of baking soda/salt rinse ?? Mucinex ?? Alimentation: neck band operator following ?? Weight decreased slightly, all by mouth at this time. No G tube. ?? IV hydration several times/wk ?? N/V: minimal issue at this time ?? PT pending ?? FU: two weeks CTCAE v4.03 scales for reference Skin 0 1 2 3 4 No change from baseline Faint erythema or dry desquamation Moderate to brisk erythema; patchy moist desquamation mostly confined to skin folds & creases; moderate edema Moist desquamation in areas other than skin folds and creases; bleeding induced by minor trauma or abrasion Life threatening consequences; skin necrosis or ulceration of full thickness dermis; spontaneous bleeding; skin graft indicated Xerostomia 0 1 2 3 4 No change from baseline Symptomatic (dry or thick saliva) without significant dietary alteration Moderate sx: oral intake alterations (e.g. copious water, diet limited to purees or soft, moist foods) Inability to adequately aliment orally, TPN or PEG indicated NA Pharyngeal Mucositis: 0 1 2 3 4 No change from baseline Asymptomatic or mild symptoms; normal oral intake; mild pain but analgesia not indicated Moderate pain and analgesics indicated; altered oral intake; limiting instrumental ADLs Severe pain, unable to adequately aliment or hydrate orally; limiting self care ADLs Life threateningconsequences; urgent intervention indicated Dysphagia 0 1 2 3 4 No change from baseline Symptomatic, able to eat regular diet Symptomatic and altered eating/swallowing Severely altered eating/swallowing; tube feeds, TPN or hospitalization indicated Life threateningconsequences; urgent intervention indicated Hoarseness 0 1 2 3 4 No change from baseline Mild or intermittent voice change; fully understandable, self-resolves Moderate or persistent voice change; may require occasional repetition but understandable on telephone Severe voice change including predominantly whispered speech NA documented in this encounter Plan of Treatment Upcoming Encounters Date Type Specialty Care Team Description 10/04/2021 Office Visit Dermatology Tg Velasco MD [facility] ER DR BLANCHE DAL[address] [place], [place] [address] (Wo rk) documented as of this encounter Visit Diagnoses Diagnosis Tonsillar cancer Malignant neoplasm of tonsil documented in this encounter Care Teams Chemical Equipment Controller Relationship Specialty Start Date End Date Gregg Garcia MD PCP - General General Internal Medicine 09/24/18 [address] [place] [address] documented as of this encounter
--- OUTSIDE RECORDS SUMMARY | 2021-09-13 17:57 | XMS_ITS | Encounter Summary ---
:1975 Author Organization [facility] [place] [address] Care Team Providers Name Role Phone Gregg Garcia MD Primary Care Provider Encounter Details Date Type Department Care Team Description 04/17/2019 [facility] Latia quiros HEMATOLOGY [place] [address] [place] [address] [phone] (Wo rk) Social History Tobacco Use Types [...] 10/04/2021 Office Visit Dermatology Tg Velasco MD [facility] [address] BLANCHE [address]ALAL[address]DERMAT [place], [place] [address] (Wo rk) documented as of this encounter Visit Diagnoses Not on filedocumented in this encounter Care Teams Household Appliance Repairer Relationship Specialty Start Date End Date Gregg Garcia MD PCP - General General Internal Medicine 09/24/18 [address] [place] [address] documented as of this encounter
--- OUTSIDE RECORDS SUMMARY | 2021-09-13 17:57 | XMS_ITS | Encounter Summary ---
:1975 Author Organization [facility] [place] [address] Care Team Providers Name Role Phone Gregg Garcia MD Primary Care Provider Encounter Details Date Type Department Care Team Description 07/31/2019 Ancillary Procedure Radiology Library at Lisette Shannon [facility] [place] [address] NEUROLOGY DEPT [phone] [place], [place] [address] (Wo rk) Social History [...] 10/04/2021 Office Visit Dermatology Tg Velasco MD [facility] [address] BL[address]AL[address] [place], [place] [address] (Wo rk) documented as of this encounter Procedures Procedure Name Priority Date/Time Associated Diagnosis Comme nts FILM LIBRARY Routine 07/31/2019 4:06 PM Results f or this STORAGE ONLY MR EDT procedure ar e in HEAD AND SPINE the results section. documented in this encounter Results Film Library- Storage Only MR Head and Spine (07/31/2019 4:06 PM EDT) Specimen (Source) Anatomical Location Collection Method / Collectio n Time Received Time / Laterality Volume Narrative ЕКАТЕРИНА - 07/31/2019 4:06 PM EDT This exam is auto-finalizing. It's purpo se is for storage only. Miguelina Shannon MD [facility] FILM LIBRARY ORDERABLES Performing Organization Address City/State/ZIP Code Phon e Number [place], [place] documented in this encounter Visit Diagnoses Not on filedocumented in this encounter Care Teams Barber Apprentice Relationship Specialty Start Date End Date Gregg Garcia MD PCP - General General Internal Medicine 09/24/18 [address] [place], [place] [id number] documented as of this encounter
--- OUTSIDE RECORDS SUMMARY | 2021-09-13 17:57 | XMS_ITS | Encounter Summary ---
:1975 Author Organization [facility] [place] [address] Care Team Providers Name Role Phone Gregg Garcia MD Primary Care Provider Reason for Referral Speech Therapy ([facility]) - Closed Specialty Diagnoses / Procedures Referred By Contact Refer red To Contact Speech Pathology / Diagnoses Tonsillar cancer Mihir Vences, [facility]ist [facility] Speech Therapy [facility] [address] [place], [place] RADIATION ONCOLOGY [phone] [place] [address] Referral ID Status Reason Start Date Expiration Date Visits V isits Requested Authorized [id number] Closed Evaluate and 05/09/2019 05/08/2020 1 1 Treat Encounter Details Date Type Department Care Team Description 05/08/2019 Office Visit Radiation Oncology at Mihir Martin, Tonsillar cancer Robbie SARMIENTO [address] [place] [phone] RADIATION ONCOLOGY [phone] [place], [place] [address] (Wo rk) Social History Tobacco [...] Sign Reading Time Taken Comments Blood Pressure 95/54 05/08/2019 3:09 PM EST Pulse 114 05/08/2019 3:09 PM EST Temperature - - Respiratory Rate - - Oxygen Saturation 97% 05/08/2019 2:37 PM EST Inhaled Oxygen Concentration - - Weight 77.6 kg (171 lb) 05/08/2019 2:37 PM EST Height - - Body Mass Index 21.95 04/29/2019 2:35 PM EST documented in this encounter Progress Notes Mihir Vences MD - 05/08/2019 2:30 PM EST FOLLOW UP VISIT NOTE Delvin Rosario is a 44 y.o. male with [id number] squamous cell carcinoma of the left tonsil, p16 (+), < 5 PY smoking history. Definitive BALANCE ENGINEER completed 03/11/19. Changes in medical condition Pain: minimal pain in oropharynx, using OTC medications. Secretions/Dryness: continued improved dysgeusia, still significant xerostomia (BSSW, water). Thick secretions improved. Swallowing Function: no coughing or choking. Nutrition: Was eating soft solids (yogurt) and protein shakes. Struggling with new onset anorexia, and now not eating solids. Skin: no issues GI: --Constipation/Diarrhea: no constipation --N/V: no nausea Hearing: stable increased tinnitus Nutrition Assessment: Weight : 94.5 kg initial Change: 77.1 => 77.6 Objective: There were no vitals taken for this visit. SKIN: no skin erythema, MUCOSA: no erythema noted NECK: submental lymphedema. Assessment: Improvement in toxicity, but still dysphagia. Will obtain MBS at [facility]. Given increased anorexia and severe fatigue, will give him Medrol dosepak. CTCAE TOXICITY GRADES (see below for hernandez): Site Grade Skin 0 Xerostomia 2 Pharyngeal Mucositis 1 Dysphagia 1 Hoarseness 0 Plan: ?? Pain control: ?? OTC medications prn. Oxycodone prn ?? Skin: ?? Jeans cream prn ?? Dysphagia: MBS ?? Mucositis: ?? Pain control: see above ?? Oral hygiene consisting of baking soda/salt rinse ?? Mucinex ?? Alimentation: vice president of talent management following ?? Weight stable, all by mouth at this time. No G tube. ?? N/V: minimal issue at this time ?? PT ongoing ?? Anorexia: steroid burst ?? FU: two weeks CTCAE v4.03 scales [...] 10/04/2021 Office Visit Dermatology Tg Velasco MD [facility] [address] [place], [place] [address] (Wo rk) Scheduled Referrals Name Type Priority Associated Diagnoses Order S chedule Referral to Speech Outpatient Referral Routine Tonsillar cance r Ordered: Therapy 05/09/2019 documented as of this encounter Results XR Fluoro Modified Barium Swallow (07/11/2019 11:21 AM EDT) Anatomical Region Laterality Modality N/A Radio Fluoroscopy Specimen (Source) Anatomical Location Collection Method / Collectio n Time Received Time / Laterality Volume Impressions 07/11/2019 11:43 AM EDT No evidence for penetration of the airway or aspiration with any consistency. Please see Cristy Cordon speech notes for further evaluation. Pooling within the vallecula most notice able on pudding thick and barium paste on cracker. Effective clearing with liqu id wash and water swallows. Thank you for letting us participate in the care of this patient. For questions regarding this report, please contact e number below. ? Electronically signed by: Susanna mariano MD, [facility] ([phone]), at 07/11/2019 11:43 AM Narrative 07/11/2019 11:43 AM EDT EXAMINATION: XR FLUORO MODIFIED BARIUM SWALLOW CLINICAL HISTORY: s/p XRT (03/11/2019) to HN, evaluate swallowing, T2 N2 M0 squamous cell of the LEFT tonsil. Pt of DURGA Amador T TECHNIQUE: The examination was performed in conjunc tion with speech pathology. ??Varying consistencies of barium were administere d under lateral fluoroscopic cine observation. Fluoro time: 2.28 COMPARISON: None FINDINGS: The oral phase of swallowing is normal. There is normal elevation of the larynx and normal epiglottic inversion with swallowing. No penetration of the airway or aspirati on occurred with any consistency. Residual pooling within the vallecula mo st noticeable on pudding thick and cracker with barium paste. Clears signif icantly with liquid wash and water swallows. Procedure Note Susanna Sin MD - 07/11/2019Forma tting of this note might be different from the original. EXAMINATION: XR FLUORO MODIFIED BARIUM S CLINICAL HISTORY: s/p XRT (03/11/2019) to HN, evaluate swallowing, T2 N2 M0 squamous cell of the LEFT tonsil. Pt of Cristy Cordon, HORTICULTURAL FARMER T TECHNIQUE: The examination was performed in conjunc tion with speech pathology. Varying consistencies of barium were administere d under lateral fluoroscopic cine observation. Fluoro time: 2.28 COMPARISON: None FINDINGS: The oral phase of swallowing is normal. There is normal elevation of the larynx and normal epiglottic inversion with swallowing. No penetration of the airway or aspirati on occurred with any consistency. Residual pooling within the vallecula mo st noticeable on pudding thick and cracker with barium paste. Clears signif icantly with liquid wash and water swallows. IMPRESSION No evidence for penetration of the airwa y or aspiration with any consistency. Please see Cristy Cordon speech notes for further evaluation. Pooling within the vallecula most notice able on pudding thick and barium paste on cracker. Effective clearing with liqu id wash and water swallows. Thank you for letting us participate in the care of this patient. For questions regarding this report, please contact e number below. Electronically signed by: Susanna mariano MD, [facility] ([phone]), at 07/11/2019 11:43 AM Mihir Vences MD IMG FLUORO ORDERABLES documented in this encounter Visit Diagnoses Diagnosis Tonsillar cancer Malignant neoplasm of tonsil Tonsillar cancer Malignant neoplasm of tonsil documented in this encounter Care Teams Coal Washer Relationship Specialty Start Date End Date Gregg Garcia MD PCP - General General Internal Medicine 09/24/18 [address] [place] [address] documented as of this encounter
--- OUTSIDE RECORDS SUMMARY | 2021-09-13 17:57 | XMS_ITS | Encounter Summary ---
:1975 Author Organization [facility] [place] [address] Care Team Providers Name Role Phone Gregg Garcia MD Primary Care Provider Encounter Details Date Type Department Care Team Description 08/22/2019 Telephone Otolaryngology at [facility] Timothy David MD [facility] [place] [address] OTOLARYNGOLOGY DEPT. 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 Patient appreciative of the phone call. We will follow-up after the PET/CT is done Timothy David MD, [facility] Staff Attending Otolaryngology-Head and Neck Surgery documented in this encounter Plan of Treatment Upcoming Encounters Date Type Specialty Care Team Description 10/04/2021 Office Visit Dermatology Tg Velasco MD [facility] [address] BL[address]ALAL[address] [place], [place] [address] (Wo rk) documented as of this encounter Visit Diagnoses Not on filedocumented in this encounter Care Teams Admitting Coordinator Relationship Specialty Start Date End Date Gregg Garcia MD PCP - General General Internal Medicine 09/24/18 [address] [place] [address] documented as of this encounter
--- OUTSIDE RECORDS SUMMARY | 2021-09-13 17:57 | XMS_ITS | Encounter Summary ---
:1975 Author Organization [facility] [place] [address] Care Team Providers Name Role Phone Gregg Garcia MD Primary Care Provider Encounter Details Date Type Department Care Team Description 09/26/2019 Procedure visit Radiation Oncology at Mihir Vences, Tonsil cancer [facility] [place] [phone] RADIATION ONCOLO [place], [place] [address] (Wo rk) Social History Tobacco [...] encounter Progress Notes Mihir Vences MD - 09/26/2019 1:45 PM EDT I spoke with Mr. Rosario briefly today, for the full clinical visit please see Ariana Schneider's note. We discussed in-office laryngoscopy today, but as he had it done [address] David we will wait until his next visit. Given his PET-CT findings we will repeat imaging in 3 months to ensure resolution. He is to initiate COMPENSATION PROGRAMS MANAGER therapy for his CN XII deficit, and will follow per NCCN grid. documented in this encounter Plan of Treatment Upcoming Encounters Date Type Specialty Care Team Description 10/04/2021 Office Visit Dermatology Tg Velasco MD [facility] [address] [place], [place] [address] (Wo rk) documented as of this encounter Visit Diagnoses Diagnosis Tonsil cancer Malignant neoplasm of tonsil documented in this encounter Care Teams Customs And Border Protection Inspector Relationship Specialty Start Date End Date Gregg Garcia MD PCP - General General Internal Medicine 09/24/18 [address] [place] [address] documented as of this encounter
--- OUTSIDE RECORDS SUMMARY | 2021-09-13 17:57 | XMS_ITS | Encounter Summary ---
:1975 Author Organization [facility] [place] [address] Care Team Providers Name Role Phone Gregg Garcia MD Primary Care Provider Encounter Details Date Type Department Care Team Description 05/21/2019 Telephone Radiation Oncology a t [facility] Queenie Koenig [address] [place] [phone] Social History Tobacco Use Types [...] this encounter Miscellaneous Notes Telephone Encounter - Queenie Koenig Lindsay - 05/21/2019 10:26 AM EDT Called Delvin to inform them that due to COVID-19 concerns [facility] is rescheduling all follow up appointments at this time. Informed him that they will receive a new appointment in the mail. Asked if he has any concerns related to their cancer care. he replied _NO___. All questions were answered and Delvin is in agreement with this plan. documented in this encounter Plan of Treatment Upcoming Encounters Date Type Specialty Care Team Description 10/04/2021 Office Visit Dermatology Tg Velasco MD [facility] [address] BL[address] DALAL[address]DERMAT [place], [place] [address] (Wo rk) documented as of this encounter Visit Diagnoses Not on filedocumented in this encounter Care Teams Road Marker Relationship Specialty Start Date End Date Gregg Garcia MD PCP - General General Internal Medicine 09/24/18 [address] [place] [address] documented as of this encounter
--- OUTSIDE RECORDS SUMMARY | 2021-09-13 17:57 | XMS_ITS | Encounter Summary ---
:1975 Author Organization [facility] [place] [address] Care Team Providers Name Role Phone Gregg Garcia MD Primary Care Provider Reason for Referral Diagnostic Test (Routine) - Closed Specialty Diagnoses / Procedures Referred By Contact Refer red To Contact Radiology Diagnoses Tonsil cancer Timothy David MD [facility] Rad Mri Procedures MRI Soft Tissue Neck wwo Contrast [facility] [place] [address] [place] [address] Referral ID Status Reason Start Date Expiration Date Visits V isits Requested Authorized [id number] Closed Specialty 08/02/2019 01/29/2020 1 1 Service Requested Reason for Visit Diagnostic Test (Routine) - Closed Specialty Diagnoses / Procedures Referred By Contact Refer red To Contact Radiology Diagnoses Tonsil cancer Timothy David MD [facility] Rad Mri Procedures MRI Soft Tissue Neck wwo Contrast [facility] [place] [address] [place] [address] Referral ID Status Reason Start Date Expiration Date Visits V isits Requested Authorized [id number] Closed Specialty 08/02/2019 01/29/2020 1 1 Service Requested Encounter Details Date Type Department Care Team Description 08/06/2019 Hospital Encounter MRI at [facility] Timothy David, Tonsil cancer [facility] [place] [address] OTOLARYNGOLOGY DEPT. [place], [place] [address] (Wo rk) Social History Tobacco [...] 0 D3, 1,000 unit Tablet mouth daily. acetaminophen (Tylenol) Take 1,000 mg by 0 09/26/2019 500 mg Tablet mouth every 8 hours as needed for Pain. nystatin (Mycostatin) Take 5 mLs by mouth 3 450 mL 0 12/201909/26/2019 100,000 unit/mL times daily. SuspensionIndications: Tonsil cancer oxyCODONE (ROXICODONE) 1-2 tabs every 4 30 tablet 0 020 09/26/2019 10 mg TabletIndications: hours as needed for Tonsillar cancer, pain Odynophagia polyethylene glycol Take 17 g by mouth 0 09/26/2019 (Miralax) 17 gram/dose daily. Powder guaiFENesin (ROBITUSSIN) Take 200 mg by mouth 0 09/26/2019 20 mg/mL Liquid 4 times daily. Takes every 4 hours while awake to thin secretions ondansetron (ZOFRAN) 8 Take 1 tablet by 20 tablet 3 019 09/26/2019 mg TabletIndications: mouth every 8 hours Tonsil cancer as needed for Nausea. diphenhydrAMINE/aluminum Take 10 mLs by mouth 300 mL 11 1 04/03/2018 09/26/2019 -magnesium hydroxide every 4 hours as with needed. simethicone/lidocaine (BMX) (6.67 mg-0.83 mg-13.33 mg-1.33 mg/mL) oral liquid ubidecarenone (COENZYME Take by mouth daily. 0 03/31/2021 Q10) 100 mg Tablet ibuprofen (ADVIL;MOTRIN) 0 02/06/2006 09/26/2019 600 mg tablet documented as of this encounter Plan of Treatment Upcoming Encounters Date Type Specialty Care Team Description 10/04/2021 Office Visit Dermatology Tg Velasco MD [facility] [address] BL[address]HE DALAL[address]DERMAT [place], [place] [address] (Wo rk) documented as of this encounter Procedures Procedure Name Priority Date/Time Associated Diagnosis Comme nts MRI NECK WITH/WO Routine 08/06/2019 12:58 PM Tonsil cancer Res ults for this CONTRAST EDT procedure are i n the results section. documented in this encounter Results MRI Soft Tissue Neck wwo Contrast (08/06/2019 12:58 PM EDT) Anatomical Region Laterality Modality Neck Magnetic Resonance Specimen (Source) Anatomical Location Collection Method / Collectio n Time Received Time / Laterality Volume Impressions 08/06/2019 1:47 PM EDT Asymmetric edema and mass effect involving the left tongue and tongue base. Question denervation injury. I don't a s ee discrete neoplasm. Thank you for letting us participate in the care of this patient. For questions regarding this report, please contact e number below. ? 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 Complains of new onset of left sided headaches and mild deviation of tongue to the left; As sess for tumor recurrence TECHNIQUE: MRI of the upper neck was performed befo re and after the intravenous administration of 16cc Dotarem. COMPARISON: MRI neck 07/31/2019 and PET/CT 06/13/2019 FINDINGS: Extensive left-sided T2 prolongation enl argement and enhancement of the left tongue and left tongue base. Edema invol ving the left retromolar trigone. Soft tissue edema involving the left and ante rior neck. Mild prevertebral edema. This appearance is similar to the recent prio r examination of 07/31/2019. Lymphadenopathy within the imaged upper neck. No evidence of skull base mass. No abnor mal cranial nerve enhancement. Procedure Note Shanon Juarez MD - 08/06/2019Formatt ing of this note might be different from the original. 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 Complains of new onset of left sided headaches and mild deviation of tongue to the left; As sess for tumor recurrence TECHNIQUE: MRI of the upper neck was performed befo re and after the intravenous administration of 16cc Dotarem. COMPARISON: MRI neck 07/31/2019 and PET/CT 06/13/2019 FINDINGS: Extensive left-sided T2 prolongation enl argement and enhancement of the left tongue and left tongue base. Edema invol ving the left retromolar trigone. Soft tissue edema involving the left and ante rior neck. Mild prevertebral edema. This appearance is similar to the recent prio r examination of 07/31/2019. Lymphadenopathy within the imaged upper neck. No evidence of skull base mass. No abnor mal cranial nerve enhancement. IMPRESSION Asymmetric edema and mass effect involvi ng the left tongue and tongue base. Question denervation injury. I don't a s ee discrete neoplasm. Thank you for letting us participate in [...] Date Dose Rate Site gadoterate meglumine (DOTAREM) Given 08/06/2019 12:32 PM EDT 16 mLs 0.5 mmol/mL (376.9 mg/mL) injection 16.32 mL 16.32 mL (0.2 mL/kg/dose ? 81.6 kg), Intravenous, ONCE PRN, 1 dose, Starting on Tu08/06/19 at 1224, Until 08/06/19 at 1232, Per Protocol, Radiology Contrast, Routine documented in this encounter Care Teams Epoxy Specialist Relationship Specialty Start Date End Date Gregg Garcia MD PCP - General General Internal Medicine 09/24/18 [address] [place] [address] documented as of this encounter
--- OUTSIDE RECORDS SUMMARY | 2021-09-13 17:57 | XMS_ITS | Encounter Summary ---
:1975 Author Organization [facility] [place] [address] Care Team Providers Name Role Phone Gregg Garcia MD Primary Care Provider Encounter Details Date Type Department Care Team Description 05/13/2019 Office Visit Hematology/Oncology Chris George [place] cancer; at [facility] High risk medication use [address] [place] [id number] ONCOLOGY DEPT. [phone] [place] [id number] Social History Tobacco Use Types Packs/Day Years [...] Sign Reading Time Taken Comments Blood Pressure 112/73 05/13/2019 1:44 PM EDT Pulse 82 05/13/2019 1:44 PM EDT Temperature 36.5 ??C (97.7 ??F) 05/13/2019 1:44 PM EDT Respiratory Rate 16 05/13/2019 1:44 PM EDT Oxygen Saturation 100% 05/13/2019 1:44 PM EDT Inhaled Oxygen Concentration - - Weight 77.1 kg (170 lb) 05/13/2019 1:44 PM EDT Height 188 cm (6' 2.02) 05/13/2019 1:44 PM EDT Body Mass Index 21.82 05/13/2019 1:44 PM EDT documented in this encounter Progress Notes Chris George MD - 05/13/2019 1:45 PM EDT Hematology/Oncology Clinic [facility] Patient Active Problem List Diagnosis ??? Other dysphagia ??? Drug-induced nausea and vomiting ??? Tonsil cancer cT1 N2 M0 p16(+), L tonsil A. Presenting with L neck mass; trivial tobacco history; small L tonsil tumor, EUA 12/10/2018: non-ker SCCa B. Definitive radiation 01/16/2019 - 03/11/2019; high dose cisplatin X 2, c/b grade 3 nausea and gr 2 ototoxcity; switch to weekly carbo+paclitaxel 02/25/2019 ??? Neck mass Brandon returns for medical oncology checkup. He is now 2 months from completing chemotherapy and radiation. At his last visit 2 weeks ago he was started to feel a bit better. While his odynophagia for mucositis continues to improve and overall his energy level continues to improve, he had a setback last weekof uncertain cause. He felt again severely anorectic, completely lost his appetite, with a drop in oral intake. He is still getting some oral fluids. He tells me that his taste buds are much improved but he still does not find eating to be very enjoyable. He related these symptoms to Dr. Vences who prescribed a Medrol Dosepak, and this did indeed boost his appetite, energy, and sense of wellbeing. The steroid dose is tapering down, with a single 4 mg tablet as of today. He was also mildly hypotensive at that visit with some orthostatic blood pressure drop. His oral intake has mostly been in the form of homemade shakes, with milk, cream, carnation instant breakfast, ice cream, yogurt, and protein powder. He is taking a vitamin supplement as well. In reviewing his medication history he has not been on long-term/chronic daily steroids, although mehrdad get doses of dexamethasone with his weekly chemotherapy. He has not been using oxycodone regularly, did take a dose last week when he was feeling generally down. Bowels are regular. He has no peripheral neuropathy, but continues with grade 2 tinnitus. He is having no trouble with dysphasia, obstruction, nor aspiration symptoms. He completed a course of physical therapy for neck lymphedema, continues to do his home MLD exercises. Physical exam: He is in no acute distress, mood is neutral, affect bright. He is much more prone to smiling today than on previous visits. He is accompanied by his today. Oral exam shows good hydration, no trismus, healthy dentition. Tongue is mobile. There is a trace ofresidual mucositis in the left tonsil bed, but no visible tumor. Neck exam is without palpable adenopathy. He has grade 1 focal anterior lymphedema. Skin in the radiation field has recovered completely. The lungs are clear to auscultation and percussion Cardiac exam is normal, no murmur rub or gallop Abdomen is benign, good bowel sounds, no hepatosplenomegaly or masses. No tenderness, specifically no hepatic tenderness nor Zaidi sign. Extremities are normal, no clubbing cyanosis or edema. Good capillary refill. Skin is unremarkable, color is good. Neurologic exam shows normal motor and sensory function, reflexes 2+. Cranial nerves normal; I do not have to speak up to make myself understood during our conversation. No labs done before today's visit. No recent x-rays. Impression: Physically he seems to recovered well from chemotherapy and radiation. He has anorexia and dysphoria or a bit more difficult to explain; these may simply be the sum total of very toxic therapy. It is possible that he is developed adrenal insufficiency from the steroids we gave him during ch emotherapy but this seems highly unlikely. Nonetheless the response to the Medrol Dosepak is suggestive. It is also possible that he has developed depression. Plan: We will send him to the laboratory today to make sure there is nothing physiologically amiss, and obtain a CBC, comprehensive metabolic panel, serum cortisol level, and TSH. We will be in touch if the results require intervention. Continue through the Medrol Dosepak; we instructed him and his wif e to call should he crash again after the completion of this steroid burst, or for other problems with appetite, energy, or mood. Consider starting an appetite-boosting antidepressant such as Remeronif he does not continue to improve. Suggested that he get additional fluid, particularly salt containing fluid, to help with hypotension. He is booked for multidisciplinary and radiographic restaging at [facility] on 06/12. Chris George MD, FACP precision agronomist Hematology/Oncology Section [facility]/[address] [address] Voice recognition software used for this note; please excuse wastewater treatment supervisor errors. I personally reviewed past medical, surgical, family medical histories, reviewed current medications, vital signs, labs, and performed full review of systems. These are documented below the narrative for clarity and succinctness. Outpatient Medications Marked as Taking for the 05/13/19 encounter (Office Visit) with Chris George MD Medication Sig Dispense Refill ??? methylPREDNISolone (MEDROL DOSPACK) 4 mg Tablets, Dose Pack Use as directed on product package. 21 tablet 0 ??? oxyCODONE (ROXICODONE) 10 mg Tablet 1-2 tabs every 4 hours as needed for pain 30 tablet 0 ??? cholecalciferol, Vitamin D3, 1,000 unit Tablet Take 1,000 Units by mouth daily. ??? atorvastatin (LIPITOR) 40 mg Tablet 0 ??? multivitamin (THERAGRAN) Tablet Take 1 tablet by mouth daily. ??? ubidecarenone (COENZYME Q10) 100 mg Tablet Take by mouth daily. Review of Systems: Review of systems is negative for other SPD MANAGER, bone, pulmonary, cardiac, GI, , extremity, neurologic, endocrine, skin, constitutional, emotional, or functional problems. Vitals Office Visit from 05/13/2019 in Hematology/Oncology at [facility] Weight 77.1 kg (170 lb) Height 188 cm (6' 2.02) BSA (Calculated - sq m) 2.01 sq meters BMI (Calculated) 21.81 Temp 36.5 ??C (97.7 ??F) Temp src Oral Heart Rate 82 Heart Rate Source Right, NIBP Resp 16 BP 112/73 BP Location Right arm Patient Position Sitting SpO2 100 % Karnofsky Score 80 Body surface area is 2.01 meters squared. Wt Readings from Last 3 Encounters: 03/09/20 77.1 kg (170 lb) 03/04/20 77.6 kg (171 lb) 04/29/19 77.1 kg (170 lb) No results found for this or any previous visit (from the past 72 hour(s)). ++++++++++++++++++++++++++++++++++++++++++++++++++++ documented in this encounter Plan of Treatment Upcoming Encounters Date Type Specialty Care Team Description 10/04/2021 Office Visit Dermatology Tg Velasco MD [facility] [address] [place]AL[address], [place] [address] (Wo rk) Scheduled Orders Name Type Priority Associated Diagnoses Order S chedule TSH Lab STAT Tonsil cancer Expected: 05/13/2019, Expires: High risk medication use 10/2019 Cortisol Lab STAT Tonsil cancer Expected: 05/13/2019, Expires: High risk medication use 10/2019 documented as of this encounter Visit Diagnoses Diagnosis Tonsil cancer Malignant neoplasm of tonsil High risk medication use Encounter for long-term (current) use of other medications documented in this encounter Care Teams Heater Worker Relationship Specialty Start Date End Date Gregg Garcia MD PCP - General General Internal Medicine 09/24/18 [address] [place] [address] documented as of this encounter
--- OUTSIDE RECORDS SUMMARY | 2021-09-13 17:57 | XMS_ITS | Encounter Summary ---
:1975 Author Organization [facility] [place] [address] Care Team Providers Name Role Phone Gregg Garcia MD Primary Care Provider Reason for Referral Diagnostic Test (Routine) - Closed Specialty Diagnoses / Procedures Referred By Contact Refer red To Contact Radiology Diagnoses Tonsillar cancer Mihir Vences MD [facility] Rad Nuclear Med Procedures NM PET CT Standard Plus Head and Neck [facility] [place] [address] [place] [address] Referral ID Status Reason Start Date Expiration Date Visits V isits Requested Authorized [id number] Closed Specialty 08/22/2019 02/18/2020 1 1 Service Requested Encounter Details Date Type Department Care Team Description 06/13/2019 Office Visit Radiation Oncology at Mihir Vences, Tonsillar cancer [facility] [place] [address] RADIATION ONCOLO [place], [place] [address] (Wo rk) Social History Tobacco [...] encounter Progress Notes Mihir Vences MD - 06/13/2019 3:30 PM EDT Images from the original note were not included. Radiation Oncology Follow Up Patient Visit PATIENT NAME: Delvin Hilton DATE OF : 1975 INTERVAL HISTORY ONCOLOGIC HISTORY DIAGNOSIS / TREATMENT OVERVIEW?? Delvin Hitlon??is a 43 y.o.??male??with [id number] squamous cell carcinoma of the left tonsil, p16 (+), <??5 PY smoking history. Definitive RESPOOLER completed 03/11/19. ?? TREATMENT DETAILS Treatment Intent [...] Gy/fxn ?? PLAN IMAGES ? Post-therapy course: Time from therapy completion: ~ 3 months Currently, he has the following symptoms: Symptom Description Intervention Pain Denies Dysphagia Able to eat most foods with lots of liquid, STATION MANAGER cancelled due to covid-19 Xerostomia / Dysgeusia Xerostomia present but improved, dysgeusia is improving Neck Fibrosis / Lymphedema / Pain Mild neck stiffness when turning and looking up; lymphedema improved but still present Doing home exercises Dental Has not seen dentist due to covid-19 Nutrition Issues / Weight Loss Weight has increased relative to last visit Feeding Tube Not Present Skin Denies Otalgia / Hearing Changes No otalgia; tinnitus still present, constant. Hearing test not yet performed Smoking Status Not smoking Voice Changes Denies Other Energy increased ECOG PS: 0 Grade ECOG PERFORMANCE STATUS [...] vitals filed for this visit. Physical Exam - deferred today as performed earlier in ENT Procedures: - deferred today in ENT given PET-CT imaging, due to concerns regarding coronavirus HISTORY Allergies as of 06/13/2019 - Review Complete 06/13/2019 Allergen Reaction Noted ??? Magnesium salicylate Rash 10/11/2018 Past Medical History: Diagnosis Date ??? High cholesterol Past Surgical History: Procedure Laterality Date ??? PRO BIOPSY OROPHARYNX Bilateral 12/10/2018 BIOPSY, OROPHARYNX (WRVU 1.44) performed by Timothy David MD at [facility] MAIN OR ??? PRO LARYNGOSCOPY, DIRCT, OP SCOPE, BIOPSY Bilateral 12/10/2018 LARYNGOSCOPY, MICROSCOPE, WITH BIOPSY (WRVU 3.55) performed by Timothy David MD at [facility] MAIN OR ??? PRO NASAL ENDOSCOPY, DX Bilateral 12/10/2018 NASAL ENDOSCOPY DIAGNOSTIC, UNILATERAL OR BILATERAL (WRVU 1.1) performed by Timothy David MD at [facility] MAIN OR Social History Socioeconomic History ??? Marital status: Spouse name: Shena ??? Number of children: 2 ??? Years of education: Not on file ??? Highest education level: Not on file Occupational History ??? 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 Financial resource strain: Not on file ??? Food insecurity Worry: Not on file Inability: Not on file ??? Transportation needs Medical: Not on file Non-medical: Not on file Tobacco Use ??? Smoking status: Former Smoker Packs/day: 0.50 Years: 3.00 Pack years: 1.50 Types: Cigarettes Last attempt to quit: 2000 Years since quittin.2 ??? Smokeless tobacco: [...] file Gets together: Not on file Attends lutheran service: Not on file Active member of [...] Tablet Take 1,000 mg by mouth every 8 hours as needed for Pain. ??? cholecalciferol, Vitamin D3, 1,000 unit Tablet Take 1,000 Units by mouth daily. ??? atorvastatin (LIPITOR) 40 mg Tablet 0 ??? multivitamin (THERAGRAN) Tablet Take 1 tablet by mouth daily. ??? ubidecarenone (COENZYME Q10) 100 mg Tablet Take by mouth daily. ??? [DISCONTINUED] methylPREDNISolone (MEDROL DOSPACK) 4 mg Tablets, Dose Pack Use as directed on product package. (Patient not taking: Reported on 06/13/2019) 21 tablet 0 ??? nystatin (Mycostatin) 100,000 unit/mL Suspension Take 5 mLs by mouth 3 times daily. (Patient nottaking: Reported on 05/13/2019) 450 mL 0 ??? oxyCODONE (ROXICODONE) 10 mg Tablet 1-2 tabs every 4 hours as needed for pain (Patient not taking: Reported on 06/13/2019) 30 tablet 0 ??? polyethylene glycol (Miralax) 17 gram/dose Powder Take 17 g by mouth daily. ??? guaiFENesin (ROBITUSSIN) 20 mg/mL Liquid Take 200 mg by mouth 4 times daily. Takes every 4 hourswhile awake to thin secretions ??? ondansetron (ZOFRAN) 8 mg Tablet Take 1 tablet by mouth every 8 hours as needed for Nausea. (Patient not taking: Reported on 04/01/2019) 20 tablet 3 ??? diphenhydrAMINE/aluminum-magnesium hydroxide with simethicone/lidocaine (BMX) (6.67 mg-0.83 mg-13.33 mg-1.33 mg/mL) oral liquid Take 10 mLs by mouth every 4 hours as needed. (Patient not taking: Reported on 04/26/2019) 300 mL 11 ??? ibuprofen (ADVIL;MOTRIN) 600 mg tablet (Patient not taking: No sig reported) Current Facility-Administered Medications on File Prior to Visit Medication Dose Route Frequency Provider Last Rate Last Dose ??? [COMPLETED] fludeoxyglucose (F-18) FDG injection 0-20 mCi 0-20 mCi Intravenous Once PRN Perfecto Shelley MD 11.5 mCi at 06/13/19 0933 IMAGING/LAB I have personally reviewed the imaging reports and images referenced in the oncologic hx and agree with the assessment as stated. Further pertinent imaging data below EXAMINATION: NM PET CT STANDARD PLUS HEAD AND NECK ?? CLINICAL HISTORY: 3 months post completion of chemoRT ? TECHNIQUE: Following IV injection of 80-gxaocq-0-deoxyglucose (FDG) a standard uptake of approximately 60 minutes, a noncontrast CT scan followed by a PET scan were acquired from the top of head to mid thighs. The noncontrast CT was used for anatomic localization and photon attenuation correction of the PET scan. ?? Blood glucose level: 102 (mg/dL) ?? FDG dose: 11.5 mCi ?? COMPARISON: PET/CT 11/22/2018 ?? FINDINGS: ?? HEAD/NECK: Complete metabolic and near complete anatomic resolution of the previously seen left neck levels 1 through 3 adenopathy with no measurable residual adenopathy. Near complete metabolic and anatomic resolution of right neck level 2 adenopathy with only a 6 mm residual mildly FDG avid lymph node in the right level 2 region (axial image 75). Normal activity in all other soft tissue regions. ?? CHEST: Normal activity in all soft tissue regions. Stable CT visualized small pulmonary nodules in the left upper and left lower lobes, most of which are calcified and consistent with granulomas. ?? ABDOMEN/PELVIS: Normal activity in all soft tissue regions. ?? SKELETON/EXTREMITIES: Decreased marrow activity in the cervical and upper thoracic spine is consistent with postradiation change. Normal marrow activity in all other regions of the axial and visualized proximal appendicular skeleton. ?? IMPRESSION 1. No evidence for residual active malignancy in the tonsillar regions. 2. No residual active jose eduardo metastasis in the left neck. 3. A 6 mm residual mildly FDG avid lymph node in the right neck level 2 region, favored to represent a posttreatment reactive node. Small residual active jose eduardo metastasis not excluded. 4. No distant sites of metastasis. Results for DELVIN HILTON ( ) as of 06/14/2019 11:43 Ref. Range 06/13/2019 11:59 TSH Latest Ref Range: 0.27 - 4.20 mcIU/mL 1.28 ASSESSMENT / PLAN Disease Status: EILEEN on PET-CT, excepting a small node on the right that has low level activity. Thisnode was in the 70 Gy dose region. Although it is likely reactive, a repeat PET-CT is indicated in 3months to confirm resolution. He has not concerning symptoms. ?? We discussed that he is still at risk of recurrence and requires continued surveillance Toxicity: ?? Dysphagia: STATION MANAGER not yet performed due to concerns regarding coronavirus. Still moderate dysphagia buttolerating foods by mouth with liquids and gaining weight. ?? Other acute toxicities resolving as expected ?? Lymphedema: continue home PT ?? Dental: no dentistry visit yet due to coronavirus ?? Thyroid Function: WNL today FU: follow per HN grid, with addition of repeat PET-CT in 3 months documented in this encounter Plan of Treatment Upcoming Encounters Date Type Specialty Care Team Description 10/04/2021 Office Visit Dermatology Tg Velasco MD [facility] ER DR BL[address]HE [place]ALAL[place], [place] [address] (Wo rk) documented as of this encounter Results NM PET CT Standard Plus Head and Neck (08/28/2019 11:36 AM EDT) Anatomical Region Laterality Modality Positron Emission To mography (PET) Specimen (Source) Anatomical Location Collection Method / Collectio n Time Received Time / Laterality Volume Impressions 08/28/2019 1:20 PM EDT The previously seen right-sided hypermetabolic cervical lymph node has resolved. There are new hypermetabolic but not enl arged lymph nodes in the left neck at level two. Given recent therapy and the resolution of the node in the right side of the neck, a reactive process in the l eft neck is favored as the most likely cause. Please consider follow-up imaging to the short resolution. Thank you for letting us participate in the care of this patient. For questions regarding this report, please contact e number below. ? Narrative 08/28/2019 1:20 PM EDT EXAMINATION: NM PET CT STANDARD PLUS HEAD AND NECK CLINICAL HISTORY: confirm resolution of FDG Avid node s/p chemoradiotherapy for HN cancer TECHNIQUE: Following IV injection of 18- ivcdyy-6-poiqqslkpaav (FDG) a standard uptake of approximately 60 minutes, a no ncontrast CT scan followed by a PET scan were acquired from the top of head to mi d thighs. The noncontrast CT was used for anatomic localization and photon att enuation correction of the PET scan. Blood glucose level: 93 (mg/dL) FDG dose: 12.5 mCi COMPARISON: June 13, 2019 FINDINGS: HEAD/NECK: Three nonenlarged but newly hypermetabol ic lymph nodes are seen in the left side of the neck at level two. The previously described right level two lymph node with mild FDG activity has metabolically resolved. Deviation of the tongue to the left is n o change in appearance since the prior study. No significant abnormal activity is noted associated with the tongue. CHEST: There is a focus of mildly increased act ivity in the skin of the left upper back (whole body image 86). This is most typi sean of an area of mild inflammation. Multiple small, nonhypermetabolic nodule s in the left lung are present, several of which are calcified, and unchanged. T hese most likely represent granulomas. ABDOMEN/PELVIS: No abnormal activity is present. SKELETON/EXTREMITIES: Decreased activity in the cervical and u pper thoracic spines is due to prior radiation and is unchanged. Procedure Note Perfecto Shelley MD - 08/28/2019 EXAMINATION: NM PET CT STANDARD PLUS HEA D AND NECK CLINICAL HISTORY: confirm resolution of FDG Avid node s/p chemoradiotherapy for HN cancer TECHNIQUE: Following IV injection of 18- pzmuhc-6-opiixthkixik (FDG) a standard uptake of approximately 60 minutes, a no ncontrast CT scan followed by a PET scan were acquired from the top of head to mi d thighs. The noncontrast CT was used for anatomic localization and photon att enuation correction of the PET scan. Blood glucose level: 93 (mg/dL) FDG dose: 12.5 mCi COMPARISON: June 13, 2019 FINDINGS: HEAD/NECK: Three nonenlarged but newly hypermetabol ic lymph nodes are seen in the left side of the neck at level two. The previously described right level two lymph node with mild FDG activity has metabolically resolved. Deviation of the tongue to the left is n o change in appearance since the prior study. No significant abnormal activity is noted associated with the tongue. CHEST: There is a focus of mildly increased act ivity in the skin of the left upper back (whole body image 86). This is most typi sean of an area of mild inflammation. Multiple small, nonhypermetabolic nodule s in the left lung are present, several of which are calcified, and unchanged. T hese most likely represent granulomas. ABDOMEN/PELVIS: No abnormal activity is present. SKELETON/EXTREMITIES: Decreased activity in the cervical and u pper thoracic spines is due to prior radiation and is unchanged. IMPRESSION The previously seen right-sided hypermet abolic cervical lymph node has resolved. There are new hypermetabolic but not enl arged lymph nodes in the left neck at level two. Given recent therapy and the resolution of the node in the right side of the neck, a reactive process in the l eft neck is favored as the most likely cause. Please consider follow-up imaging to the short resolution. Thank you for letting us participate in the care of this patient. For questions regarding this report, please contact e number below. Mihir Vences MD IMG PET ORDERABLES documented in this encounter Visit Diagnoses Diagnosis Tonsillar cancer Malignant neoplasm of tonsil Tonsillar cancer Malignant neoplasm of tonsil documented in this encounter Care Teams Soft Iron Inspector Relationship Specialty Start Date End Date Gregg Garcia MD PCP - General General Internal Medicine 09/24/18 [address] [facility] [place] [address] documented as of this encounter
--- OUTSIDE RECORDS SUMMARY | 2021-09-13 17:57 | XMS_ITS | Encounter Summary ---
:1975 Author Organization [facility] [place] [address] Care Team Providers Name Role Phone Gregg Garcia MD Primary Care Provider Encounter Details Date Type Department Care Team Description 07/31/2019 Ancillary Procedure Radiology Library at Lisette Shannon [facility] [place] [address] NEUROLOGY DEPT [phone] [place], [place] [address] (Wo rk) Social History Tobacco [...] Tg Velasco MD [facility] [address] [place], [place] [address] (Wo rk) documented as of this encounter Procedures Procedure Name Priority Date/Time Associated Diagnosis Comme nts FILM LIBRARY Routine 07/31/2019 4:02 PM Results for this STORAGE ONLY CT EDT procedure ar e in HEAD the results section. documented in this encounter Results Film Library- Storage Only CT Head (07/31/2019 4:02 PM EDT) Specimen (Source) Anatomical Location Collection Method / Collectio n Time Received Time / Laterality Volume Narrative ЕКАТЕРИНА - 07/31/2019 4:02 PM EDT This exam is auto-finalizing. It's purpo se is for storage only. Miguelina [place] MD IMJarrett FILM LIBRARY ORDERABLES Performing Organization Address City/State/ZIP Code Phon e Number [place], [place] documented in this encounter Visit Diagnoses Not on filedocumented in this encounter Care Teams Pharmacy Salesperson Relationship Specialty Start Date End Date Gregg Garcia MD PCP - General General Internal Medicine 09/24/18 9 [address] [place] [address] documented as of this encounter
--- OUTSIDE RECORDS SUMMARY | 2021-09-13 17:57 | XMS_ITS | Encounter Summary ---
:1975 Author Organization [place] [address] Care Team Providers Name Role Phone Gregg Garcia MD Primary Care Provider Reason for Referral Diagnostic Test (Routine) - Closed Specialty Diagnoses / Procedures Referred By Contact Refer red To Contact Radiology Diagnoses Tonsil cancer Vishal Clemente MD [facility] Rad Nuclear Med Procedures NM PET CT Standard Plus Head and Neck [facility] Singh [place] [address] [place] [address] Referral ID Status Reason Start Date Expiration Date Visits V isits Requested Authorized [id number] Closed Specialty 05/24/2019 08/22/2019 1 1 Service Requested Encounter Details Date Type Department Care Team Description 04/17/2019 Orders Only Hematology and Oncology at Vishal Clemente MD Tonsil cancer [facility] Latia quiros [place] [address] ONCOLOGY [phone] [place], [place] [address] (Wo rk) Social History Tobacco [...] [facility] BL[facility] DAL[facility] [place], [place] [address] (Wo rk) documented as of this encounter Results NM PET CT Standard Plus Head and Neck (06/13/2019 11:04 AM EDT) Anatomical Region Laterality Modality Positron Emission To mography (PET) Specimen (Source) Anatomical Location Collection Method / Collectio n Time Received Time / Laterality Volume Impressions 06/13/2019 12:17 PM EDT 1. ??No evidence for residual active malignancy in the tonsillar regions. 2. ??No residual active jose eduardo metastasis in the left neck. 3. ??A 6 mm residual mildly FDG avid lym ph node in the right neck level 2 region, favored to represent a posttreatment angle ctive node. Small residual active jose eduardo metastasis not excluded. 4. ??No distant sites of metastasis. Thank you for letting us participate in the care of this patient. For questions regarding this report, please contact e number below. ? Narrative 06/13/2019 12:17 PM EDT EXAMINATION: NM PET CT STANDARD PLUS HEAD AND NECK CLINICAL HISTORY: 3 months post completi on of chemoRT TECHNIQUE: Following IV injection of 18- pzeizk-8-alvqmtgrmwhq (FDG) a standard uptake of approximately 60 minutes, a no ncontrast CT scan followed by a PET scan were acquired from the top of head to mi d thighs. The noncontrast CT was used for anatomic localization and photon att enuation correction of the PET scan. Blood glucose level: 102 (mg/dL) FDG dose: 11.5 mCi COMPARISON: PET/CT 11/22/2018 FINDINGS: HEAD/NECK: Complete metabolic and near complete sindi tomic resolution of the previously seen left neck levels 1 through 3 adenopathy with no measurable residual adenopathy. Near complete metabolic and anatomic res olution of right neck level 2 adenopathy with only a 6 mm residual mildly FDG randall d lymph node in the right level 2 region (axial image 75). Normal activity in all other soft tissue regions. CHEST: Normal activity in all soft tissue regio ns. Stable CT visualized small pulmonary nodules in the left upper and left lower lobes, most of which are calcified and consistent with granulomas. ABDOMEN/PELVIS: Normal activity in all soft tissue regio ns. SKELETON/EXTREMITIES: Decreased marrow activity in the cervica l and upper thoracic spine is consistent with postradiation change. Normal marrow activity in all other regions of the axial and visualized proximal appendicul ar skeleton. Procedure Note Nilesh Brewster MD - 06/13/2019Formatti ng of this note might be different from the original. EXAMINATION: NM PET CT STANDARD PLUS HEA D AND NECK CLINICAL HISTORY: 3 months post completi on of chemoRT TECHNIQUE: Following IV injection of 18- gscsyr-6-ncketvwbzwpd (FDG) a standard uptake of approximately 60 minutes, a no ncontrast CT scan followed by a PET scan were acquired from the top of head to mi d thighs. The noncontrast CT was used for anatomic localization and photon att enuation correction of the PET scan. Blood glucose level: 102 (mg/dL) FDG dose: 11.5 mCi COMPARISON: PET/CT 11/22/2018 FINDINGS: HEAD/NECK: Complete metabolic and near complete sindi tomic resolution of the previously seen left neck levels 1 through 3 adenopathy with no measurable residual adenopathy. Near complete metabolic and anatomic res olution of right neck level 2 adenopathy with only a 6 mm residual mildly FDG randall d lymph node in the right level 2 region (axial image 75). Normal activity in all other soft tissue regions. CHEST: Normal activity in all soft tissue regio ns. Stable CT visualized small pulmonary nodules in the left upper and left lower lobes, most of which are calcified and consistent with granulomas. ABDOMEN/PELVIS: Normal activity in all soft tissue regio ns. SKELETON/EXTREMITIES: Decreased marrow activity in the cervica l and upper thoracic spine is consistent with postradiation change. Normal marrow activity in all other regions of the axial and visualized proximal appendicul ar skeleton. IMPRESSION 1. No evidence for residual active malig clay in the tonsillar regions. 2. No residual active jose eduardo metastasis i n the left neck. 3. A 6 mm residual mildly FDG avid lymph node in the right neck level 2 region, favored to represent a posttreatment angle ctive node. Small residual active jose eduardo metastasis not excluded. 4. No distant sites of metastasis. Thank you for letting us participate in the care of this patient. For questions regarding this report, please contact e number below. Vishal Clemente MD IMG PET ORDERABLES documented in this encounter Visit Diagnoses Diagnosis Tonsil cancer Malignant neoplasm of tonsil Tonsil cancer Malignant neoplasm of tonsil documented in this encounter Care Teams Telecommunications Administrator Relationship Specialty Start Date End Date Gregg Garcia MD PCP - General General Internal Medicine 09/24/18 [address] [facility] [place] [address] documented as of this encounter
--- OUTSIDE RECORDS SUMMARY | 2021-09-13 17:57 | XMS_ITS | Encounter Summary ---
:1975 Author Organization [facility] [place] [address] Care Team Providers Name Role Phone Gregg Garcia MD Primary Care Provider Encounter Details Date Type Department Care Team Description 06/13/2019 Laboratory Appointment Lab [address]L [place] [address] Social History Tobacco Use Types Packs/Day [...] 10/04/2021 Office Visit Dermatology Tg Velasco MD [facility] DR BLANCHE DALAL-DERMAT [place], [place] [address] (Wo rk) documented as of this encounter Visit Diagnoses Not on filedocumented in this encounter Care Teams Evaporator Repairer Relationship Specialty Start Date End Date Gregg Garcia MD PCP - General General Internal Medicine 09/24/18 [address] [address] [place] [address] documented as of this encounter
--- OUTSIDE RECORDS SUMMARY | 2021-09-13 17:57 | XMS_ITS | Encounter Summary ---
:1975 Author Organization [facility] [place] [address] Care Team Providers Name Role Phone Gregg Garcia MD Primary Care Provider Encounter Details Date Type Department Care Team Description 04/22/2019 [facility] ONCOLOGY DEPT. [place], [place] [id number] [phone] Social History Tobacco Use Types Packs/Day Years [...] Sign Reading Time Taken Comments Blood Pressure 116/64 04/22/2019 1:50 PM EST Pulse 101 04/22/2019 1:50 PM EST Temperature 36.8 ??C (98.3 ??F) 04/22/2019 1:50 PM EST Respiratory Rate 16 04/22/2019 1:50 PM EST Oxygen Saturation 100% 04/22/2019 1:50 PM EST Inhaled Oxygen Concentration - - Weight 76.1 kg (167 lb 12.8 oz) 04/22/2019 1:50 PM EST Height 188 cm (6' 2.02) 04/22/2019 1:50 PM EST Body Mass Index 21.53 04/22/2019 1:50 PM EST documented in this encounter Progress Notes Chris George MD - 04/22/2019 1:45 PM EST Hematology/Oncology Clinic [facility] Patient Active Problem List Diagnosis ??? Other [...] for medical oncology checkup. He is now 6 weeks from completing chemoradiation. He continues a slow and gradual recovery. We started him on nystatin last week for mouth and palate pain, with minimal exam findings (faint white coating on the mucosal surfaces without classic candidiasis signs). This helped a bit, but his mouth pain has moved; has moved from the palate now more to the back of the throat. Overall his oral and throat pain have improved; he is needing only occasional doses of oxycodone to help get through a meal. He finds that talking increases his mouth and throat pain. His taste sensation has recovered very slightly. His appetite is still generally poor but is notcompletely suppressed. Despite this he has been eating well, by his account up to 3000 sean a day, but is still losing weight. He continues with bilateral hearing loss, grade 1, with intermittent tinnitus. Energy level is still suboptimal, KPS 80. Physical exam: He looks well, less pale than before, and appears to be in good spirits Oral exam shows nearly complete resolution of the palate and pharyngeal mucositis Neck exam is without palpable adenopathy Skin in the radiation field has healed completely The lungs are clear Cardiac exam is normal Abdomen is benign, no hepatosplenomegaly or masses Extremities are normal Neurologic exam is grossly normal, including cranial nerves. Hearing was not formally tested today. Labs: From 04/19 his white count was 4.16, hemoglobin 10.8, platelets 160; chemistry panel was withinnormal limits including creatinine 0.78. 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 Possible oralcandidiasis, although the symptoms and signs were not classic. Ongoing weight loss despite good caloric intake likely due to the hyper metabolic syndrome we commonly see in such patients after the completion of therapy. Plan: We will continue thrice weekly intravenous hydration for support this week, and reevaluate status next week. Continue nystatin. Continue intermittent oxycodone for pain. He has weaned himself offof the lorazepam. Chris George MD, FACP paper products machine operator Hematology/Oncology Section [facility] [address] Voice recognition software used for this note; please excuse print developer errors. I personally reviewed past medical, surgical, family medical histories, reviewed current medications, vital signs, labs, and performed full review of systems. These are documented below the narrative for clarity and succinctness. Outpatient Medications Marked as Taking for the 04/22/19 encounter (Office Visit) with Chris George MD Medication Sig Dispense Refill ??? nystatin (Mycostatin) 100,000 unit/mL Suspension Take 5 mLs by mouth 3 times daily. 450 mL 0 ??? oxyCODONE (ROXICODONE) 10 mg Tablet 1-2 tabs every 4 hours as needed for pain 30 tablet 0 ??? polyethylene glycol (Miralax) 17 gram/dose Powder Take 17 g by mouth daily. ??? guaiFENesin (ROBITUSSIN) 20 mg/mL Liquid Take 200 mg by mouth 4 times daily. Takes every 4 hourswhile awake to thin secretions ??? diphenhydrAMINE/aluminum-magnesium hydroxide with simethicone/lidocaine (BMX) (6.67 mg-0.83 mg-13.33 mg-1.33 mg/mL) oral liquid Take 10 mLs by mouth every 4 hours as needed. 300 mL 11 ??? acetaminophen (TYLENOL) 325 mg Tablet Take 650 mg by mouth every 4 hours as needed for Pain. ??? atorvastatin (LIPITOR) 40 mg Tablet 0 ??? multivitamin (THERAGRAN) Tablet Take 1 tablet by mouth daily. Review of Systems: Review of systems is negative for other WIRELESS OPERATOR, bone, pulmonary, cardiac, GI, , extremity, neurologic, endocrine, skin, constitutional, emotional, or functional problems. Vitals Office Visit from 04/22/2019 in Hematology/Oncology at [facility] Weight 76.1 kg (167 lb 12.8 oz) Height 188 cm (6' 2.02) BSA (Calculated - sq m) 1.99 sq meters BMI (Calculated) 21.53 Temp 36.8 ??C (98.3 ??F) Temp src Oral Heart Rate (!) 101 Heart Rate Source Monitor Resp 16 BP 116/64 BP Location Right arm Patient Position Sitting SpO2 100 % Karnofsky Score 70 Motor Neuropathy N/A Sensory Neuropathy N/A Body surface area is 1.99 meters squared. Wt Readings from Last 3 Encounters: 04/22/19 76.1 kg (167 lb 12.8 oz) 04/19/19 78.5 kg (173 lb) 04/17/19 76.6 kg (168 lb 12.8 oz) No results found for this or any previous visit (from the past 72 hour(s)). ++++++++++++++++++++++++++++++++++++++++++++++++++++ documented in this encounter Plan of Treatment Upcoming Encounters Date Type Specialty Care Team Description 10/04/2021 Office Visit Dermatology Tg Velasco MD [facility] [address] BLANCHE DALAL-DERMAT [place] [address] (Wo rk) documented as of this encounter Visit Diagnoses Diagnosis Tonsil cancer Malignant neoplasm of tonsil documented in this encounter Care Teams Bird Trapper Relationship Specialty Start Date End Date Gregg Garcia MD PCP - General General Internal Medicine 09/24/18 [address] [place] [address] documented as of this encounter
--- OUTSIDE RECORDS SUMMARY | 2021-09-13 17:57 | XMS_ITS | Encounter Summary ---
:1975 Author Organization [facility] [place] [address] Care Team Providers Name Role Phone Gregg Garcia MD Primary Care Provider Reason for Visit Reason Comments Follow-up Encounter Details Date Type Department Care Team Description 06/13/2019 Office Visit Hematology and Oncology Viviana George MD Tonsil cancer at [facility] Latia quiros [place] [address] [place] [address] [phone] (Wo rk) Social History Tobacco Use Types [...] Sign Reading Time Taken Comments Blood Pressure 122/70 06/13/2019 12:49 PM EDT Pulse 69 06/13/2019 12:49 PM EDT Temperature 36.8 ??C (98.2 ??F) 06/13/2019 12:49 PM EDT Respiratory Rate 16 06/13/2019 12:49 PM EDT Oxygen Saturation 100% 06/13/2019 12:49 PM EDT Inhaled Oxygen Concentration - - Weight 82.1 kg (181 lb) 06/13/2019 12:49 PM EDT Height 187.5 cm (6' 1.82) 06/13/2019 12:49 PM EDT Body Mass Index 23.35 06/13/2019 12:49 PM EDT documented in this encounter Progress Notes Chris George MD - 06/13/2019 1:00 PM EDT Head and Neck Cancer Medical Oncology Patient Active Problem List Diagnosis ??? Other [...] to weekly carbo+paclitaxel 02/25/2019 ??? Neck mass Three-month post-treatment restaging visit at [facility]. He has had a rough several months since completing therapy, but has been improving considerably in the past few weeks. Energy level has returned, not normal, but his activity level is improving steadily. Throat pain is almost completely resolved, with substantial benefit from a Medrol Dosepak. He is no longer needing any narcotics. He has mild persistent dysphasia but no obstruction or aspiration symptoms. He does have thick phlegm but not as much as before. Dry mouth is a bit more of a problem however. Taste sensation improving, but far from normal. His diet still concentrates on very moist foods and soft solids. He has been regaining weight as his intake has improved. No peripheral neuropathy, but he still has tinnitus, grade 1. Hearing acuity is functionally satisfactory. He still has some anterior neck lymphedema. He is doing home MLD exercises. He has not been able to have a lymphedema therapy follow-up due to the current COVID epidemic. Physical exam: Exam abbreviated to minimize COVID-19 viral exposure He looks well, back to his former upbeat and cheerful self. Voice is strong Oral exam shows complete resolution of filiform overgrowth on the tongue; there is a trace of residual mucositis along the edge of the soft palate. Tonsillar fossa is clear. Tongue mobility excellent. Teeth in good repair. Neck exam is without adenopathy. Complete resolution of radiation dermatitis. There is grade 1 lymphedema, anterior more than laterally. Neurologic exam shows grossly normal motor and sensory function. Hearing seems functionally normal, I do not have to speak up to make myself understood despite wearing a facemask and a face shield. Labs are detailed below, essentially normal. Random cortisol was ordered to evaluate his profound fatigue noted at last visit, and is also normal. We personally reviewed the images from today's PET/CT, which shows CR: IMPRESSION 1. No evidence for residual active malignancy in the tonsillar regions. 2. No residual active jose eduardo metastasis in the left neck. 3. A 6 mm residual mildly FDG avid lymph node in the right neck level 2 region, favored to represent a posttreatment reactive node. Small residual active jose eduardo metastasis not excluded. 4. No distant sites of metastasis. Impression: Clinical complete response curative intent chemoradiation. Slow initial recovery, with considerably more improvement by today's 3-month gopi. Grade 1 posttreatment neck lymphedema. Grade 1 persistent chemotherapy related ototoxicity. Small right neck zone 2 node, likely reactive but I think this bears close monitoring. Plan: Continue manual lymphatic drainage. Continue all of his efforts at recovery, with escalation of oral intake towards normal, and continued exercise to regain the strength loss during chemoradiation. Follow-up per standard [facility] head and neck team schedule; I anticipate repeating the PET/CT in approximately 3 months to check on the right neck lymph node. He knows to call for any other problems in the meantime. Chris George MD, FACP [facility] Hematology/Oncology Section [place] [phone] Voice recognition software used for this note; please excuse wall taper errors. I personally reviewed past medical, surgical, family medical histories, reviewed current medications, vital signs, labs, and performed full review of systems. These are documented below the narrative for clarity and succinctness. Outpatient Medications Marked as Taking for the 06/13/19 encounter (Office Visit) with Chris George MD Medication Sig Dispense Refill ??? methylPREDNISolone (MEDROL DOSPACK) 4 mg Tablets, Dose Pack Use as directed on product package. 21 tablet 0 ??? guaiFENesin (ROBITUSSIN) 20 mg/mL Liquid Take 200 mg by mouth 4 times daily. Takes every 4 hourswhile awake to thin secretions ??? cholecalciferol, Vitamin D3, 1,000 unit Tablet Take 1,000 Units by mouth daily. ??? atorvastatin (LIPITOR) 40 mg Tablet 0 ??? multivitamin (THERAGRAN) Tablet Take 1 tablet by mouth daily. ??? ubidecarenone (COENZYME Q10) 100 mg Tablet Take by mouth daily. Review of Systems: Review of systems is negative for other CAD DRAFTER, bone, pulmonary, cardiac, GI, , extremity, neurologic, endocrine, skin, constitutional, emotional, or functional problems. Vitals Office Visit from 06/13/2019 in Hematology and Oncology at [facility] Weight 82.1 kg (181 lb) Height 187.5 cm (6' 1.82) BSA (Calculated - sq m) 2.07 sq meters BMI (Calculated) 23.35 Temp 36.8 ??C (98.2 ??F) Temp src Temporal Heart Rate 69 Heart Rate Source Monitor Resp 16 BP 122/70 BP Location Right arm Patient Position Sitting SpO2 100 % Body surface area is 2.07 meters squared. Wt Readings from Last 3 Encounters: 06/13/19 82.1 kg (181 lb) 05/13/19 77.1 kg (170 lb) 05/08/19 77.6 kg (171 lb) Recent Results (from the past 72 hour(s)) POCT Glucose Result Value Ref Range POC Glucose 102 65 - 199 mg/dL Cortisol Result Value Ref Range Cortisol 10.0 mcg/dL TSH Result Value Ref Range TSH 1.28 0.27 - 4.20 mcIU/mL Hemogram Result Value Ref Range WBC 4.7 4.0 - 9.5 x10(3)/mcL RBC 4.30 (L) 4.58 - 5.54 x10(6)/mcL Hemoglobin 13.9 13.7 - 16.5 gm/dL Hematocrit 41.3 40.5 - 48.5 % MCV 96.0 (H) 82.9 - 93.1 fL MCH 32.3 (H) 27.5 - 32.1 pg MCHC 33.7 32.0 - 35.7 gm/dL Platelets 151 145 - 357 x10(3)/mcL RDWSD 40.0 36.0 - 45.0 fL RDWCV 11.4 11.4 - 13.8 % MPV 8.1 7.6 - 12.9 fL nRBC % Auto 0.0 % nRBC Abs Auto 0.000 0.000 - 0.000 x10(3)/mcL Differential, Automated Result Value Ref Range Neutrophils % 65.6 % Neutr Abs (ANC) 3.10 1.70 - 6.10 x10(3)/mcL Lymphocytes % 22.8 % Lymphocytes Abs 1.1 0.9 - 3.2 x10(3)/mcL Monocytes % 6.8 % Monocyte Abs 0.3 0.3 - 0.9 x10(3)/mcL Eosinophils % 4.0 % Eosinophils Abs 0.2 0.0 - 0.4 x10(3)/mcL Basophils % 0.6 % Basophils Abs 0.0 0.0 - 0.1 x10(3)/mcL Immature Gran % 0.20 % Emily Gran Abs 0.01 0.00 - 0.04 x10(3)/mcL Magnesium Result Value Ref Range Magnesium 0.85 0.69 - 1.07 mmol/L Comprehensive metabolic panel (non-fasting) Result Value Ref Range Glucose Lvl 140 65 - 199 mg/dL BUN 16 10 - 20 mg/dL Creatinine 1.11 0.80 - 1.50 mg/dL Sodium 139 135 - 145 mmol/L Potassium 4.0 3.5 - 5.0 mmol/L Chloride 101 98 - 107 mmol/L CO2 29 22 - 31 mmol/L Anion Gap 9 5 - 15 mmol/L Calcium 9.9 8.5 - 10.5 mg/dL Total Protein 7.2 6.1 - 8.0 gm/dL Albumin 4.4 3.2 - 5.2 gm/dL AST 16 0 - 39 unit/L ALT 27 0 - 55 unit/L Alk Phos 43 40 - 130 unit/L Total Bilirubin 0.6 0.2 - 1.3 mg/dL eGFR 80 >=60 mL/min/1.73 m?? eGFR 93 >=60 mL/min/1.73 m?? ++++++++++++++++++++++++++++++++++++++++++++++++++++ documented in this encounter Plan of Treatment Upcoming Encounters Date Type Specialty Care Team Description 10/04/2021 Office Visit Dermatology Tg Velasco MD [facility] DR BLANCHE DALAL-DERMAT [place], [place] [address] (Wo rk) documented as of this encounter Visit Diagnoses Diagnosis Tonsil cancer Malignant neoplasm of tonsil documented in this encounter Care Teams Metal Finish Inspector Relationship Specialty Start Date End Date Gregg Garcia MD PCP - General General Internal Medicine 09/24/18 [address] [place] [address] documented as of this encounter
--- OUTSIDE RECORDS SUMMARY | 2021-09-13 17:57 | XMS_ITS | Encounter Summary ---
:1975 Author Organization [place] [address] Care Team Providers Name Role Phone Gregg Garcia MD Primary Care Provider Reason for Visit Reason Comments Follow-up office visit Encounter Details Date Type Department Care Team Description 06/13/2019 Office Visit Otolaryngology at [facility] Timothy David Oropharynx cancer [facility] [place] [address] [facility] [phone] OTOLARYNGOLOGY DEPT. [place], [place] [address] Social History Tobacco Use Types [...] - Inhaled Oxygen Concentration - - Weight 79.4 kg (175 lb) 06/13/2019 1:28 PM EDT Height 188 cm (6' 2) 06/13/2019 1:28 PM EDT Body Mass Index 22.47 06/13/2019 1:28 PM EDT documented in this encounter Progress Notes Timothy David MD - 06/13/2019 1:40 PM EDT Subjective: Patient ID: Delvin Rosario is a 44 y.o. male. HPI 44 y.o. 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 Pertinent history: ?? 1 y hx of left neck mass with recent onset of dysphagia x 2 months ?? Denies referred otalgia/voice/speech/swallowing issues ?? 20 lb unintentional weight loss ?? Former smoker x 3 years, some EtOH, denies IVDA, negative PMHx ?? Exam: L superior zone 2 mass extending into zone 3. ?? Left tonsil full, normal R tonsil ?? Normal FNL Imaging: PET-CT: Hypermetabolic lymphadenopathy is present in the left neck at levels 2A, 2B, 1B, ??and 3. Hypermetabolic lymph nodes are present in the right neck at levels 2A and 3. Diffuse, uniformand symmetric activity is present in the palate and tonsils bilaterally are all likely normal physiologic activity. Patient reports feeling overall well. It is been about 3 months since completion of his chemoradiation therapy. Level of energy is improving nicely. He is able to eat a reasonably normal diet but certain solids are difficult to swallow. His taste overall is fair. It is slowly improving. He had an episode 3 weeks ago where he became anorexic and actually started losing weight. He brought it to the attention of Dr Vences and was placed on the Medrol Dosepak which he completed about 10 days ago. Overall spirits are good. Appetite is better. His weight is slightly creeping up. He denies any fevers, chills, sweats. He is not aware of any neck mass. He denies any significant throat pain and denies referred otalgia. He does have issues with tinnitus especially in the right ear which was fairly significant at the end of his radiation therapy and did resolve, however in the lastfew weeks the hissing/buzzing type tinnitus is back. Not particularly disturbing. No prior history of noise exposure or hearing loss that he is aware of and no prior otologic history of ear infections.He has had no ear pain. Past Medical History: Diagnosis Date ??? High cholesterol Past Surgical History: Procedure Laterality Date ??? PRO BIOPSY OROPHARYNX Bilateral 12/10/2018 BIOPSY, OROPHARYNX (WRVU 1.44) performed by Timothy David MD at [facility] MAIN OR ??? PRO LARYNGOSCOPY, DIRCT, OP SCOPE, BIOPSY Bilateral 12/10/2018 LARYNGOSCOPY, MICROSCOPE, WITH BIOPSY (WRVU 3.55) performed by Timothy David MD at [facility] MAIN OR ??? PRO NASAL ENDOSCOPY, DX Bilateral 12/10/2018 NASAL ENDOSCOPY DIAGNOSTIC, UNILATERAL OR BILATERAL (WRVU 1.1) performed by Timothy David MD at [facility] MAIN OR Patient Active Problem List Diagnosis Code ??? Neck mass R22.1 ??? 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 Drug-induced nausea and vomiting R11.2, T50.905A ??? Other dysphagia R13.19 Current Outpatient Medications: ??? methylPREDNISolone (MEDROL DOSPACK) 4 mg Tablets, Dose Pack, Use as directed on product package., Disp: 21 tablet, Rfl: 0 ??? acetaminophen (Tylenol) 500 mg Tablet, Take 1,000 mg by mouth every 8 hours as needed for Pain.,Disp: , Rfl: ??? polyethylene glycol (Miralax) 17 gram/dose Powder, Take 17 g by mouth daily., Disp: , Rfl: ??? guaiFENesin (ROBITUSSIN) 20 mg/mL Liquid, Take 200 mg by mouth 4 times daily. Takes every 4 hours while awake to thin secretions, Disp: , Rfl: ??? cholecalciferol, Vitamin D3, 1,000 unit Tablet, Take 1,000 Units by mouth daily., Disp: , Rfl: ??? atorvastatin (LIPITOR) 40 mg Tablet, , Disp: , Rfl: 0 ??? multivitamin (THERAGRAN) Tablet, Take 1 tablet by mouth daily., Disp: , Rfl: ??? ubidecarenone (COENZYME Q10) 100 mg Tablet, Take by mouth daily., Disp: , Rfl: ??? nystatin (Mycostatin) 100,000 unit/mL Suspension, Take 5 mLs by mouth 3 times daily. (Patient not taking: Reported on 05/13/2019), Disp: 450 mL, Rfl: 0 ??? oxyCODONE (ROXICODONE) 10 mg Tablet, 1-2 tabs every 4 hours as needed for pain (Patient not taking: Reported on 06/13/2019), Disp: 30 tablet, Rfl: 0 ??? ondansetron (ZOFRAN) 8 mg Tablet, Take 1 tablet by mouth every 8 hours as needed for Nausea. (Patient not taking: Reported on 04/01/2019), Disp: 20 tablet, Rfl: 3 ??? diphenhydrAMINE/aluminum-magnesium hydroxide with simethicone/lidocaine (BMX) (6.67 mg-0.83 mg-13.33 mg-1.33 mg/mL) oral liquid, Take 10 mLs by mouth every 4 hours as needed. (Patient not taking: Reported on 04/26/2019), Disp: 300 mL, Rfl: 11 ??? ibuprofen (ADVIL;MOTRIN) 600 mg tablet, , Disp: , Rfl: No current facility-administered medications for this visit. [...] History ??? 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 Financial resource strain: Not [...] file Gets together: Not on file Attends mormonism service: Not on file Active member of [...] Social History Narrative ??? Not on file Review of Systems Objective: Physical Exam Vitals signs and nursing note reviewed. Constitutional: General: He is not in acute distress. Appearance: He is well-developed. He is not diaphoretic ( Voice normal. Speech normal no stridor). HENT: Head: Normocephalic. Jaw: No trismus. Right Ear: Tympanic membrane, ear canal and external ear normal. No tenderness. No middle ear effusion. Left Ear: Tympanic membrane, ear canal and external ear normal. No tenderness. No middle ear effusion. Nose: Septal deviation present. No nasal deformity or mucosal edema. Mouth/Throat: Mouth: No oral lesions (Post radiation therapy. No visible lesion. Both tonsils atrophic. Mucositisof the pharyngeal mucosa). Dentition: Normal dentition. No dental tenderness. Pharynx: Uvula midline. No oropharyngeal exudate. Eyes: General: No scleral icterus. Conjunctiva/sclera: Conjunctivae normal. Pupils: Pupils are equal, round, and reactive to light. Neck: Musculoskeletal: Normal range of motion and neck supple. Thyroid: No thyroid mass or thyromegaly. Vascular: No carotid bruit. Trachea: No tracheal deviation. Pulmonary: Effort: Pulmonary effort is normal. No respiratory distress. Breath sounds: No stridor. Lymphadenopathy: Cervical: No cervical adenopathy (His then noted left neck adenopathy has resolved. The skin of hisneck is supple. There is no significant induration or mass on the right neck). Skin: General: Skin is warm. Findings: No erythema. Neurological: Mental Status: He is alert and oriented to person, place, and time. Cranial Nerves: No cranial nerve deficit. Deep Tendon Reflexes: Reflexes are normal and symmetric. Psychiatric: Behavior: Behavior normal. Thought Content: Thought content normal. Judgment: Judgment normal. Assessment and Plan: PET/CT done earlier today is reviewed at length. It is reviewed with the patient showing the following 1. No evidence for residual active malignancy in the tonsillar regions. 2. No residual active jose eduardo metastasis in the left neck. 3. A 6 mm residual mildly FDG avid lymph node in the right neck level 2 region, favored to represent a posttreatment reactive node. Small residual active jose eduardo metastasis not excluded. 4. No distant sites of metastasis. Patient has had an excellent response to his chemoradiation therapy for his tonsil cancer. He needs to be followed on a regular basis and we will proceed to see him as per our head and neck grid. I will also make arrangements for the patient to undergo an audiogram and follow-up visit in regards to his tinnitus. All his questions were answered to his satisfaction. documented in this encounter Plan of Treatment Upcoming Encounters Date Type Specialty Care Team Description 10/04/2021 Office Visit Dermatology Tg Velasco MD [facility] [address] BLANCHE DALAL[address]DERMAT [place], [place] [address] (Wo rk) documented as of this encounter Visit Diagnoses Diagnosis Oropharynx cancer Malignant neoplasm of oropharynx, unspec ified site documented in this encounter Care Teams Bluing Oven Tender Relationship Specialty Start Date End Date Gregg Garcia MD PCP - General General Internal Medicine 09/24/18 [address] [place] [address] documented as of this encounter
--- OUTSIDE RECORDS SUMMARY | 2021-09-13 17:57 | XMS_ITS | Encounter Summary ---
:1975 Author Organization [facility] [place] [address] Care Team Providers Name Role Phone Gregg Garcia MD Primary Care Provider Encounter Details Date Type Department Care Team Description 05/29/2019 Telephone Speech Therapy at Cristy Pruitt, LABVIEW PROGRAMMER [facility] [place] [address] PHYSICAL MEDICINE & [phone] [place] [address] Social History Tobacco Use Types Packs/Day Years [...] Tg Velasco MD [facility] DR BLANCHE DALAL-DERMAT [place], [place] [address] (Wo rk) documented as of this encounter Visit Diagnoses Not on filedocumented in this encounter Care Teams Scribing Machine Operator Relationship Specialty Start Date End Date Gregg Garcia MD PCP - General General Internal Medicine 09/24/18 [address] [place] [address] documented as of this encounter
--- OUTSIDE RECORDS SUMMARY | 2021-09-13 17:57 | XMS_ITS | Encounter Summary ---
:1975 Author Organization [facility] [place] [address] Care Team Providers Name Role Phone Gregg Garcia MD Primary Care Provider Encounter Details Date Type Department Care Team Description 07/11/2019 Hospital Encounter XRay at [facility] Mihir Vences Tonsillar cancer [address] [place] [address] Dr Shiva MD [facility] [id number] [place] [phone] RADIATION ONCOLOGY [place], [place] [address] Social History Tobacco Use Types [...] 10/04/2021 Office Visit Dermatology Tg Velasco MD [facility] DR BLANCHE DALAL-DERMAT [place], [place] [address] (Wo rk) documented as of this encounter Procedures Procedure Name Priority Date/Time Associated Diagnosis Comme nts XR FLUORO BARIUM Routine 07/11/2019 11:21 AM Tonsillar cancer Results for this SWALLOW EDT procedure are i n (MODIFIED/VIDEO the results SWALLOW PHARYNX) section. documented in this encounter Results XR Fluoro Modified Barium [...] ? Electronically signed by: Susanna mariano MD, [facility] ([phone]), at 07/11/2019 11:43 AM Narrative 07/11/2019 11:43 [...] of the LEFT tonsil. Pt of Cristy Bravo, ATTORNEY AT LAW T TECHNIQUE: The examination was performed in [...] For questions regarding this report, please contact [facility] number below. Electronically signed by: Susanna mariano MD, [facility] ([phone]), at 07/11/2019 11:43 AM Mihir Vences MD IMG FLUORO ORDERABLES documented in this encounter Visit Diagnoses Diagnosis Tonsillar cancer Malignant neoplasm of tonsil documented in this encounter Administered Medications Inactive Administered Medications - up to 3 most recent administrations Medication Order MAR Action Action Date Dose Rate Site barium sulfate (E-Z Disk) tablet Given 07/11/2019 11:45 AM EDT 7 00 mg 700 mg 700 mg, Oral, ONCE, 1 dose, On [place] 07/11/19 at 1145, Routine barium sulfate (Varibar Honey) 40% (w/v) Given 07/11/2019 11:45 AM EDT 20 mLs oral liquid 20 mL 20 mL, Oral, ONCE, 1 dose, On [place] 07/11/19 at 1145, Routine barium sulfate (Varibar [place]) 40% (w/v) Given 07/11/2019 11:45 AM EDT 20 mLs oral liquid 20 mL 20 mL, Oral, ONCE, 1 dose, On [place] 07/11/19 at 1145, Routine barium sulfate (VARIBAR PUDDING) oral paste Given 09/2019 11:45 AM EDT 10 mLs 10 mL 10 mL, Oral, ONCE, 1 dose, On [place] 07/11/19 at 1145, Routine barium sulfate (Varibar Thin Liquid) oral Given 07/11/2019 11:45 AM EDT 20 mLs powder 20 mL 20 mL, Oral, ONCE, 1 dose, On [place] 07/11/19 at 1145, Routine documented in this encounter Care Teams Pecan Picker Relationship Specialty Start Date End Date Gregg Garcia MD PCP - General General Internal Medicine 09/24/18 [address] [place] [address] documented as of this encounter
--- OUTSIDE RECORDS SUMMARY | 2021-09-13 17:57 | XMS_ITS | Encounter Summary ---
:1975 Author Organization [facility] Address [place] [id number] Care Team Providers Name Role Phone Gregg Garcia MD Primary Care Provider Encounter Details Date Type Department Care Team Description 07/31/2019 Telephone Hematology and Oncology at Beena Salas MD [facility] Latia quiros HEMATOLOGY/[place] [address] [place] [address] [phone] (Wo rk) Social History Tobacco Use Types [...] this encounter Miscellaneous Notes Telephone Encounter - Beena Porter MD - 07/31/2019 3:16 PM EDT Brief Oncology Fellow Telephone Note: Received a call from Dr. Bustamante at [facility] regarding Mr. Delvin Rosario, a 44y/o M with a history of LeftTonsilar squamous cell carcinoma, s/p completion of concurrent chemoradiation in 03/2019 who presented to the ED today for evaluation of ongoing headaches x 2-3 weeks. He also noticed today that he has some L. Sided tongue deviation when he sticks his tongue out (noticed mild slured speech over the last few days). Otherwise no fevers, chills, infectious symptoms. No cough/shortness of breath. No dysphagia/odynophagia/weight loss - still able to tolerate a regular diet. Denies change in vision or any other tingling/numbness or weakness. Headache improved in ED with single dose of tylenol. On exam, vitals are stable, afebrile, satting well on Room air. Exam with some L. Sided tongue deviation with protrusion and L. Sided tongue weakness but otherwise no focal findings or visible tongue swelling. (unclear how new this tongue deviation is) CT head unremarkable MRI brain without any findings MRI/MRA neck with: Enlargement and edema of posterior left side of tongue, adjacent L. Neck - could represent disease recurrence or post-treatment effect. Images are not currently available for my view. Dr. Bustamante is requesting guidance on further evaluation and management. Given he does not have any acutely concerning brain findings (no stroke or metastases), airway obstruction, or dysphagia and he is able to continue to tolerate po intake, there does not appear to be an indication for admission or acute transfer to [facility]. Given edema mentioned associated with his tongue could trial steroids though unlikely to have significant symptomatic improvement. Will ensure close follow up with Dr. George, Dr. Vences, and Dr. David (His Head & Neck team at [facility]) to determine next best steps. Beena Porter MD Hematology/Oncology Fellow Pager #[phone] 07/31/19 documented in this encounter Plan of Treatment Upcoming Encounters Date Type Specialty Care Team Description 10/04/2021 Office Visit Dermatology Tg Velasco MD [facility] [address] BLANCHE DALAL[address]DER[address] [place], [place] [address] (Wo rk) documented as of this encounter Visit Diagnoses Not on filedocumented in this encounter Care Teams Die Press Operator Relationship Specialty Start Date End Date Gregg Garcia MD PCP - General General Internal Medicine 09/24/18 1 [address] [facility] [address] [facility] [place] [address] documented as of this encounter
--- OUTSIDE RECORDS SUMMARY | 2021-09-13 17:57 | XMS_ITS | Encounter Summary ---
:1975 Author Organization [facility] [place] [address] Care Team Providers Name Role Phone Gregg Garcia MD Primary Care Provider Encounter Details Date Type Department Care Team Description 10/03/2019 Orders Only Otolaryngology at [facility] Jennifer Thomas Oropharynx cancer [facility] Latia Kessler RN (Primary Dx) [place] [address] Social History Tobacco Use Types Packs/Day [...] Velasco MD [facility] [address] BLANCHE DALAL[address]DERMAT [place], [place] [address] (Wo rk) documented as of this encounter Visit Diagnoses Diagnosis 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
--- OUTSIDE RECORDS SUMMARY | 2021-09-13 17:57 | XMS_ITS | Encounter Summary ---
:1975 Author Organization [facility] [place] [address] Care Team Providers Name Role Phone Gregg Garcia MD Primary Care Provider Reason for Visit Reason Onset Date Comments Headache 07/31/2019 Follow-up 07/31/2019 Encounter Details Date Type Department Care Team Description 07/31/2019 Telephone Hematology and Ni Rivera Headac he; Follow-up Oncology at [facility] [place] [address] [place] [address] [phone] Social History Tobacco Use Types Packs/Day Years [...] this encounter Miscellaneous Notes Telephone Encounter - Ni Rivera APRN - 07/31/2019 11:05 AM EDT Returned Delvin's phone call regarding message below. HPI: Delvin is a 44 year old male with tonsil cancer that is almost 5 months out post treatment. He has been on a slow recovery process but overall doing well. He had new complaints of headaches that are unilateral (to the left) since his last visit with Dr. George. He reached out to his PCP who is going to order an MRI and told Delvin to update us. The headaches are described as throbbing and is comes and goes. Rated as 5/10. Denies vision changes bu endorses some speech changes that he cannot tell if it is related to the past radiation treatment or not. Denies dizziness, fevers, shortness of breath, chest pain, muscle weakness, nausea, vomiting, and diarrhea. He continues to follow with speech therapy with residual swallowing difficulties from treatment. Plan: MRI from PCP Will follow up with results-rule out cancer reoccurrence vs other disease process Patient to call with any additional concerns Patient in agreement with the plan Telephone Encounter - Ni Rivera APRN - 07/31/2019 11:04 AM EDT ----- Message from Sarahi Chang sent at 07/30/2019 2:37 PM EDT ----- Regarding: update on headaches Contact: Dr. George instructed patient to call back with update after seeing pcp about headaches, please call documented in this encounter Plan of Treatment Upcoming Encounters Date Type Specialty Care Team Description 10/04/2021 Office Visit Dermatology Tg Velasco MD [facility] [address] BL[address]HE DALAL[address]DER[address] [place], [place] [address] (Wo rk) documented as of this encounter Visit Diagnoses Not on filedocumented in this encounter Care Teams Laborer Tanbark Relationship Specialty Start Date End Date Gregg Garcia MD PCP - General General Internal Medicine 09/24/18 [address] [place] [address] (work) documented as of this encounter
--- OUTSIDE RECORDS SUMMARY | 2021-09-13 17:57 | XMS_ITS | Encounter Summary ---
:1975 Author Organization [facility] [place] [address] Care Team Providers Name Role Phone Gregg Garcia MD Primary Care Provider Reason for Visit Reason Comments IV Medication Hydration Encounter Details Date Type Department Care Team Description 04/19/2019 Infusion Hematology Oncology at [facility] ug-induced nausea and vomiting; [facility] Tonsil cancer [address] [place] [address] [phone] Social History Tobacco Use Types Packs/Day [...] Sign Reading Time Taken Comments Blood Pressure 115/56 04/19/2019 10:03 AM EST Pulse 64 04/19/2019 10:03 AM EST Temperature 36.6 ??C (97.9 ??F) 04/19/2019 10:03 AM EST Respiratory Rate 16 04/19/2019 10:03 AM EST Oxygen Saturation 100% 04/19/2019 10:03 AM EST Inhaled Oxygen Concentration - - Weight 78.5 kg (173 lb) 04/19/2019 10:03 AM EST Height 188 cm (6' 2.02) 04/19/2019 10:03 AM EST Body Mass Index 22.2 04/19/2019 10:03 AM EST documented in this encounter Progress Notes Luma Ragsdale, RN - 04/19/2019 10:00 AM EST INFUSION THERAPY ADMINISTRATION NOTES DIAGNOSIS: Tonsillar cancer REASON FOR VISIT: Hydration SUBJECTIVE: Delvin offers no complaints. OBJECTIVE: VSS. Weight stable. IV ACCESS: PIV REACTIONS (DESCRIPTION, TIME, INTERVENTION AND EFFECTIVENESS) none ASSESSMENT: Delvin was awake, alert and tolerated treatment well. PIV discontinued prior to dismissal. PLAN: Return to clinic per routine. documented in this encounter Plan of Treatment Upcoming Encounters Date Type Specialty Care Team Description 10/04/2021 Office Visit Dermatology Tg Velasco MD [facility] [address] BLANCHE DALAL-DERMAT [place], [place] [address] (Wo rk) documented as of this encounter Visit Diagnoses Diagnosis Drug-induced nausea and vomiting Nausea with vomiting Tonsil cancer Malignant neoplasm of tonsil documented in this encounter Administered Medications Inactive Administered Medications - up to 3 most recent administrations Medication Order MAR Action Action Date Dose Rate Site sodium chloride 0.9% New Bag 04/19/2019 10:34 AM 1,000 mLs 500 mL /hr infusion EST 1,000 mL (1 L), at 500 mL/hr, Intravenous, ONCE, 1 dose, On Mon04/19/19 at 1045 documented in this encounter Care Teams Vocational Training Director Relationship Specialty Start Date End Date Gregg Garcia MD PCP - General General Internal Medicine 09/24/18 [address] [place] [address] documented as of this encounter
--- OUTSIDE RECORDS SUMMARY | 2021-09-13 17:57 | XMS_ITS | Encounter Summary ---
:1975 Author Organization [place] [address] Care Team Providers Name Role Phone Gregg Garcia MD Primary Care Provider Reason for Visit Speech Therapy ([place]) - Closed Specialty Diagnoses / Procedures Referred By Contact Refer red To Contact Speech Pathology / Diagnoses Tonsillar cancer Mihir Vences, [facility] Rn Endocrinology Rehab Speech Therapy [facility] [address] [place], [place] RADIATION ONCOLOGY [id number] [place] [address] Referral ID Status Reason Start Date Expiration Date Visits V isits Requested Authorized [id number] Closed Evaluate and 05/09/2019 05/08/2020 1 1 Treat Encounter Details Date Type Department Care Team Description 07/11/2019 Office Visit Speech Therapy at [facility] Cristy Cordon, Other dysphagia; [facility] BRIDGE GANG WORKER [place] [address] PHYSICAL MEDICINE & [place] [address] Social History Tobacco Use Types Packs/Day Years [...] documented as of this encounter Miscellaneous Notes Initial Evaluation - Cristy Cordon, BRIDGE GANG WORKER - 07/11/2019 10:00 AM EDT [facility] Outpatient Rehabilitation Medicine Speech-Language Pathology Modified Barium Swallow Evaluation Patient Name: Delvin Rosario Date of : 1975 Referring MD: Dr. Mihir Vences Date Seen by MD: 05/09/19 Diagnosis: dysphagia Date of Onset: 2019 Date of Evaluation: 07/11/2019 Evaluation Time: 45 min, no timed codes Presenting Problem: Delvin Rosario is a 44 y.o. male with a history of [id number] squamous cell carcinoma of the left tonsil, p16 (+), <??5 PY smoking history. Definitive BIOSTATISTICS MANAGER completed 03/11/19. Pt Was referred s/p BIOSTATISTICS MANAGER to BRIDGE GANG WORKER and was seen on 04/11/19 with complaints of ongoing difficulty swallowing solids, difficulty chewing, jaw pain, occasional difficulty swallowing pills, nasal regurgitation on his first sip of liquid on the morning on occasion and greater difficulty swallowing in the morning vs. Over the daytime hours. During our last visit on 04/11/19 pt noted to have: ?? Suspected pharyngeal dysphagia to solids > liquids based on symptoms. ?? Ongoing oral discomfort with new onset discomfort on the palate. ?? Deconditioning related to lack of swallowing during treatment. ?? Lymphedema signs at the anterior neck. ?? Nasal emission observed, mild and intermittent. ?? Recommendations per that visit included: ?? Diet As tolerated (pt currently drinking smoothies and has had oatmeal. Does not do well with foods with particles (eg. Cottage cheese). ?? Continue pills as prescribed, use liquid wash down or puree as needed. ?? Continue baking soda rinses. ?? Engage in effortful swallow, [place] swallow, Nikki Maneuver, practice effortful /k/ and /g/. ?? Pt to contact me in 1 week or sooner to schedule a Modified Barium Swallow if he does not continue to improve. ?? Current complaints: ?? Dysphagia to solids. ?? Takes some time to swallow solids and lots of water to wash down. ?? Pt avoids hard foods ?? Pt loses control of foods in his mouth ?? His mouth is very dry ?? He feels food gets cauthe at the base of tongue, high in his throat. ?? He has more difficulty swallowing solids than liquids ?? He has some difficulty swallowing pills. Functional Limitations: Dysphagia to solids > liquids Prior Medical History: Past Medical History: Diagnosis Date ??? High cholesterol Patient Active Problem List Diagnosis Code ??? Neck mass R22.1 ??? 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 Drug-induced nausea and vomiting R11.2, T50.905A ??? Other dysphagia R13.19 Medications: Current Outpatient Medications: ??? acetaminophen (Tylenol) 500 mg Tablet, Take 1,000 mg by mouth every 8 hours as needed for Pain.,Disp: , Rfl: ??? nystatin (Mycostatin) 100,000 unit/mL Suspension, Take 5 mLs by mouth 3 times daily. (Patient not taking: Reported on 05/13/2019), Disp: 450 mL, Rfl: 0 ??? oxyCODONE (ROXICODONE) 10 mg Tablet, 1-2 tabs every 4 hours as needed for pain (Patient not taking: Reported on 06/13/2019), Disp: 30 tablet, Rfl: 0 ??? polyethylene glycol (Miralax) 17 gram/dose Powder, Take 17 g by mouth daily., Disp: , Rfl: ??? guaiFENesin (ROBITUSSIN) 20 mg/mL Liquid, Take 200 mg by mouth 4 times daily. Takes every 4 hours while awake to thin secretions, Disp: , Rfl: ??? ondansetron (ZOFRAN) 8 mg Tablet, Take [...] 04/26/2019), Disp: 300 mL, Rfl: 11 ??? cholecalciferol, Vitamin D3, 1,000 unit Tablet, Take 1,000 Units by mouth daily., Disp: , Rfl: ??? atorvastatin (LIPITOR) 40 mg Tablet, , Disp: , Rfl: 0 ??? multivitamin (THERAGRAN) Tablet, Take 1 tablet by mouth daily., Disp: , Rfl: ??? ubidecarenone (COENZYME Q10) 100 mg Tablet, Take by mouth daily., Disp: , Rfl: ??? ibuprofen (ADVIL;MOTRIN) 600 mg tablet, , Disp: , Rfl: S: Pt. denies pain at this time. Pt alert and cooperative with study. Study review was not performed with patient due to delays in video review. Patient will be contacted following review with Radiologist. O: Order received and assessment completed with this 44 y.o. male referred for recent dysphagia as described above. Oral Peripheral Examination per our 04/11/19 visit: ?? Nasal emission, mild, intermittent. ?? Tongue with short frenulum but functional mobility. ?? Lymphedema under chin primarily. Updates per today: Jaw opening per Therabite ROM scale 39 mm Pt reported he can open his mouth almost 3 fingers wide but does this only with pain/ discomfort. Pt reported jaw pain at his lower jaw, not joint Pt reported difficulty opening his mouth to eat solids and has been avoiding particular foods requiring wide mouth opening. Pt describes pain on first bite of food at times. Pt reported that lymphedema has increased with weight gain Pt no longer appears to have nasal emission Pt with functional lip and tongue movement ongoing. Bolus Presentation(s) ??? Thin liquid barium via cup sips, single and sequential ??? Joppa thick barium via cup sips, single and sequential ??? Honey thick barium via tsp ??? Pudding thick barium via tsp with liquid wash down ??? Cookie coated with pudding thick barium via patient controlled bites with liquid wash down x 2 ??? 13 mm barium pill with water Oral Preparatory Phase WFL, efficient bolus formation and rapid transit (1 to 2 seconds) Pharyngeal Phase No aspiration or penetration of airway noted with any consistency attempted. Difficulties Revealed: (Lateral View) ??? Moderate vallecular residue/stasis cleared with liquid washdown. Esophageal Phase No reflux noted Difficulties Reveled: ??? Impression on anterior and posterior esophagus on the pudding thick bolus with liquid washdown observed primarily during the liquid washdown. All foods and liquids passed thru the esophagus. Solidswere more difficult to pass with stasis at the valleculae cleared with liquid washdown. It was difficult to discern a consistent pattern of stasis to suggest stricture, however this is a concern for this patient who has been slow to return to a normal oral diet. Will communicate findings with MD. Modifications Attempted: ??? Chin tuck was not helpful in clearing material from the valleculae more per patient report than observation. A: Diagnostic Impressions ??? Moderate pharyngeal dysphagia due to stasis at the valleculae with thicker vs. Thinner liquids. This was cleared with a liquid washdown. There may be some contribution here from the esophagus basedon patient history of complaints of difficulty managing solids in the setting of radiation. There was only one image in which indentation of the esophagus was observed anterior and posterior (pudding thick with liquid wash down). ??? Aspiration Penetration Scale Score (Michael Lang et al. A Penetration- Aspiration Scale. Dysphagia, 11: 93-98, 1996. ??? 1 = no material enters the airway ??? 2 = material enters the airway, does not touch the vocal cords and is completely ejected. ??? 3 = material enters the airway, does not touch the vocal cords, but is not ejected ??? 4 = material enters the airway, contacts the vocal cords, but is ejected ??? 5 = material enters the airway, contacts the vocal cords, but is not ejected ??? 6 = material enters the airway, passes below the vocal cords and is ejected ??? 7 = material passes below the vocal cords, is not ejected, but there is effort made to expel material ??? 8 = material passes below the vocal cords, and there is no attempt to eject it ??? Prognosis for improvement is guarded. Patient is s/p radiation and has had a plateau in his swallow function for the last month. He does not have aspiration, rather finds it difficult to swallow solids requiring significant liquid wash down. He experiences some food avoidance due to discomfort with his bite and difficulty with hard solids. Pt willing to try pills with smoothies or in yogurt consistency in order to observe for improved swallow safety. Recommendations: ??? Diet: Regular diet as tolerated ??? Follow Aspiration Precautions ??? Use water wash down as needed ??? Consider pills with smoothie or in puree/ yogurt consistency ??? Pt filled out forms for Therabite Device and I will submit these to ENT department. ??? Will discuss swallow function with Dr. David ??? Will contact patient when able to review MBS and offer any additional swallowing strategies as able. ??? Pt reinforced to continue liquid washdown and using caution with eating solids. Pt in agreement. ??? Pt recommended to follow up with PT given increase in Lymhedema. Short Term Goals: ??? Patient will demonstrate independnet carryover of compensatory strategies / diet recommendations. ? ? Pt/ family / caregiver will demonstrate understanding of education & training Fpc Goals: ??? Patient will demonstrate reduction/ elimination of dysphagia symptoms. ??? Patient will demonstrate carryover of functional home program designed to maintain safest level of PO. P: ??? Will follow up for 1-2 additional visit in the next 1-2 months to assess patient progress, trainexercises and determine plan of care given lack of improvement in swallowing x 1 month. ??? Pt./family are in agreement with plan of treatment. Thank you for this consult with this patient. Please feel free to contact me with any questions or concerns. Cristy Cordon MS [facility]-BRIDGE GANG WORKER Speech-Language Pathologist #[id number] Outpatient Rehabilitation Medicine [phone] documented in this encounter Plan of Treatment Upcoming Encounters Date Type Specialty Care Team Description 10/04/2021 Office Visit Dermatology Tg Velasco MD [facility] [address] BL[address] DALAL[address]DERMAT [place], [place] [address] (Wo rk) Scheduled Referrals Name Type Priority Associated Diagnoses Order S chedule Referral to Speech Outpatient Referral Routine Tonsillar cance r Ordered: Therapy 05/09/2019 documented as of this encounter Visit Diagnoses Diagnosis Other dysphagia Tonsil cancer Malignant neoplasm of tonsil documented in this encounter Care Teams Is Technician Relationship Specialty Start Date End Date Gregg Garcia MD PCP - General General Internal Medicine 09/24/18 [address] [place] [address] documented as of this encounter
--- OUTSIDE RECORDS SUMMARY | 2021-09-13 17:57 | XMS_ITS | Encounter Summary ---
:1975 Author Organization [facility] [place] [address] Care Team Providers Name Role Phone Gregg Garcia MD Primary Care Provider Reason for Referral Diagnostic Test (Routine) - Closed Specialty Diagnoses / Procedures Referred By Contact Refer red To Contact Radiology Diagnoses Tonsil cancer Timothy David MD [facility] Rad Mri Procedures MRI Soft Tissue Neck wwo Contrast [facility] [place] [address] [place] [address] Referral ID Status Reason Start Date Expiration Date Visits V isits Requested Authorized [id number] Closed Specialty 08/02/2019 01/29/2020 1 1 Service Requested Encounter Details Date Type Department Care Team Description 08/01/2019 Orders Only Otolaryngology at [facility] Timothy David Tonsil cancer [facility] Latia Weinstein MD (Primary Dx) [place] [address] [facility] [phone] [facility] OTOLARYNGOLOGY DEPT. [place], [place] [address] Social History Tobacco Use Types [...] [facility] [address] D[address] [place], [place] [address] (Wo rk) documented as of this encounter Results MRI Soft Tissue Neck [...] this report, please contact e number below. 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
--- OUTSIDE RECORDS SUMMARY | 2021-09-13 17:57 | XMS_ITS | Encounter Summary ---
:1975 Author Organization [facility] [place] [address] Care Team Providers Name Role Phone Gregg Garcia MD Primary Care Provider Encounter Details Date Type Department Care Team Description 06/13/2019 Telephone Hematology and Oncol ogy at [facility] [place] [address] Social History Tobacco Use Types Packs/Day [...] this encounter Miscellaneous Notes Telephone Encounter - Mary Carmen Sanchez RD - 06/18/2019 12:03 PM EDT [facility] Follow Up Assessment Referred by: Dr. George Reason for visit: symptom management Patient Name and Diagnosis: Delvin Rosario is a 43 Y m with tonsilar cancer. S/p chemoradiation treatment. Returns to clinic for 3 month follow up. Assessment: HPI Patient Active Problem List Diagnosis Code ??? Neck mass R22.1 ??? 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 Drug-induced nausea and vomiting R11.2, T50.905A ??? Other dysphagia R13.19 Meds: reviewed Labs: reviewed Estimated body mass index is 22.47 kg/m?? as calculated from the following: Height as of an earlier encounter on 06/13/19: 188 cm (6' 2). Weight as of an earlier encounter on 06/13/19: 79.4 kg (175 lb). Wt Readings from Last 3 Encounters: 06/13/19 79.4 kg (175 lb) 06/13/19 82.1 kg (181 lb) 05/13/19 77.1 kg (170 lb) Wt Hx: UBW: 220 - 225 lbs Lost 15-20 lbs 3 mos p/t tx, platuaed off at 215 lbs in October - Nov. 205 lbs on 01/16/19 Estimated daily PO intake: Continues to stick to soft, moist foods. Xerostomia continues to be an issue, as well. Fluids: Nutrition Support: N/A Tastes starting to return. Bowels: working, taking softeners daily and miralax once every few days. Nutrition Diagnosis: Characteristics Severity Insufficient Energy Intake Increasing Unintended Weight Loss 23% loss total during treatment; 5 lb weight gain since last RD visit 2 months ago. Loss of Subcutaneous Fat Loss of Muscle Mass Fluid Accumulation Diminished Functional Capacity Unable to meet with Delvin during his 3 month follow up in clinic. Due to COVID-19 pandemic, meeting with patients with telephone. Called and LVMM. As he has gained weigh tand per dr. George and Vangie's notes continues to make steady progress. CATALOGUE ILLUSTRATOR and Dentist are delayed d/t COVID-19. Will follow up in 3 months. Nutrition Intervention: ? Increase caloric needs ? Modify diet consistency: mostly liquids, soft foods as tolerated ? Increase frequency of meals and snacks ? Need for supplements Nutrition Goals: Maintain adequate oral intake; weight and LBM gain Monitoring and Evaluation: Will follow up with Delvin in 3 months to re-evaluate. Thank you for this consult. Mary Carmen SANCHEZ RD documented in this encounter Plan of Treatment Upcoming Encounters Date Type Specialty Care Team Description 10/04/2021 Office Visit Dermatology Tg Velasco MD [facility] ER [address] BLANCHE DALAL[address]DERMAT [place], [place] [address] (Wo rk) documented as of this encounter Visit Diagnoses Not on filedocumented in this encounter Care Teams Grease Refiner Operator Relationship Specialty Start Date End Date Gregg Garcia MD PCP - General General Internal Medicine 09/24/18 [address] [place] [address] documented as of this encounter
--- OUTSIDE RECORDS SUMMARY | 2021-09-13 17:57 | XMS_ITS | Encounter Summary ---
:1975 Author Organization [facility] [address] Care Team Providers Name Role Phone Gregg Garcia MD Primary Care Provider Reason for Referral Audiology Exam (Routine) - Closed Specialty Diagnoses / Procedures Referred By Contact Refer red To Contact Audiology Diagnoses Hearing loss, unspecified hearing loss type, unspecified laterality Tinnitus, unspecified laterality Timothy David MD Perez, Ashley N, AUD [facility] OTOLARYNGOLOGY DEPT. AUDIOLOGY DEPT [place], [place] [id number] [place] [phone] Fax: Referral ID Status Reason Start Date Expiration Date Visits V isits Requested Authorized [id number] Closed Specialty 08/08/2019 08/07/2020 1 1 Service Requested Encounter Details Date Type Department Care Team Description 08/08/2019 Orders Only Hematology and Tg Roblero Hearin g loss, unspecified hearing loss type, unspecified laterality; Oncology at [facility] RN Tinnitus, [place] [address] Social History Tobacco Use Types Packs/Day Years [...] Tg Velasco MD [facility] ER [address] BLANCHE DALAL-DERMAT [place], [place] [address] (Wo rk) Scheduled Referrals Name Type Priority Associated Diagnoses Order S chedule Referral to Outpatient Referral Routine Hearing loss, Ordered : Audiology unspecified hearing 08/08/19 20 loss type, unspecified laterality Tinnitus, unspecified laterality documented as of this encounter Visit Diagnoses Diagnosis Hearing loss, unspecified hearing loss t ype, unspecified laterality Tinnitus, unspecified laterality documented in this encounter Care Teams Chick Grader Relationship Specialty Start Date End Date Gregg Garcia MD PCP - General General Internal Medicine 09/24/18 [address] [place] [address] documented as of this encounter
--- OUTSIDE RECORDS SUMMARY | 2021-09-13 17:57 | XMS_ITS | Encounter Summary ---
:1975 Author Organization [facility] [place] [address] Care Team Providers Name Role Phone Gregg Garcia MD Primary Care Provider Encounter Details Date Type Department Care Team Description 08/19/2019 Telephone Otol[facility]ology at [facility] [place] [address] Social History Tobacco Use Types Packs/Day [...] this encounter Miscellaneous Notes Telephone Encounter - Haley Foster RN - 08/19/2019 2:20 PM EDT Patient's call returned. Patient called to see if Dr. David had a chance to talk over the results with the other doctor and I wanted to make sure my speech referral went to [facility]. Messagessent to providers. Encouraged patient to call back if he still doesn't hear from Dr. David or [facility]. Patient verbalized understanding. documented in this encounter Plan of Treatment Upcoming Encounters Date Type Specialty Care Team Description 10/04/2021 Office Visit Dermatology Tg Vealsco MD [facility] ER [address] BLANCHE DALAL[address]DER[address] [place], [place] [address] (Wo rk) documented as of this encounter Visit Diagnoses Not on filedocumented in this encounter Care Teams Salesperson Women'S Hats Relationship Specialty Start Date End Date Gregg Garcia MD PCP - General General Internal Medicine 09/24/18 [address] [place] [address] documented as of this encounter
--- OUTSIDE RECORDS SUMMARY | 2021-09-13 17:57 | XMS_ITS | Encounter Summary ---
:1975 Author Organization [place] [address] Care Team Providers Name Role Phone Gregg Garcia MD Primary Care Provider Encounter Details Date Type Department Care Team Description 05/29/2019 Telephone Speech Therapy at Cristy Pruitt, CLAMSHELL ENGINEER [facility] [place] [address] PHYSICAL MEDICINE & [phone] [place] [address] Social History Tobacco Use Types Packs/Day Years [...] 10/04/2021 Office Visit Dermatology Tg Velasco MD [facility] ER DR BLANCHE DALAL[address]DERMAT [place], [place] [address] (Wo rk) documented as of this encounter Visit Diagnoses Not on filedocumented in this encounter Care Teams Cisco Network Engineer Relationship Specialty Start Date End Date Gregg Garcia MD PCP - General General Internal Medicine 09/24/18 [address] [place] [address] documented as of this encounter
--- OUTSIDE RECORDS SUMMARY | 2021-09-13 17:57 | XMS_ITS | Encounter Summary ---
:1975 Author Organization [facility] [place] [address] Care Team Providers Name Role Phone Gregg Garcia MD Primary Care Provider Encounter Details Date Type Department Care Team Description 08/22/2019 Multidisciplinary Care Otolaryngology at [facility] Kindra David [facility] [place] [address] [place] [address] [place] [address] Social History Tobacco Use Types Packs/Day Years [...] encounter Progress Notes Timothy David MD - 08/22/2019 8:06 AM EDT Head and Neck Tumor Board Note [...] no palpable neck mass ?? Recent MRI Pathology Imaging MRI of neck: Asymmetric edema and mass effect involving the left tongue and tongue base, sharply demarcated. Edema of base of tongue. Question denervation injury. Tumor Board Recommendations Will move up PET CT scheduled for September 29 ? * (Based on past studies and [...] Velasco MD [facility] [address]DER[address] [place], [place] [address] (Wo rk) documented as of this encounter Visit Diagnoses Not on filedocumented in this encounter Care Teams Drawing In Machine Tender Relationship Specialty Start Date End Date Gregg Garcia MD PCP - General General Internal Medicine 09/24/18 [address] [place] [address] documented as of this encounter
--- OUTSIDE RECORDS SUMMARY | 2021-09-13 17:57 | XMS_ITS | Encounter Summary ---
:1975 Author Organization [facility] [place] [address] Care Team Providers Name Role Phone Gregg Garcia MD Primary Care Provider Reason for Visit Reason Comments Other hydration Encounter Details Date Type Department Care Team Description 04/26/2019 Infusion Hematology Oncology at [facility] ug-induced nausea and vomiting; [facility] Tonsil cancer [address] [place], [place] [id number] [phone] Social History Tobacco Use Types Packs/Day [...] Sign Reading Time Taken Comments Blood Pressure 106/57 04/26/2019 9:01 AM EST Pulse 70 04/26/2019 9:01 AM EST Temperature 36.6 ??C (97.9 ??F) 04/26/2019 9:01 AM EST Respiratory Rate 16 04/26/2019 9:01 AM EST Oxygen Saturation 100% 04/26/2019 9:01 AM EST Inhaled Oxygen Concentration - - Weight 77.5 kg (170 lb 12.8 oz) 04/26/2019 9:01 AM EST Height 188 cm (6' 2.02) 04/26/2019 9:01 AM EST Body Mass Index 21.92 04/26/2019 9:01 AM EST documented in this encounter Progress Notes Manuela Matute RN - 04/26/2019 10:00 AM EST INFUSION THERAPY ADMINISTRATION NOTES DIAGNOSIS: Head and neck cancer REASON FOR VISIT: Hydration SUBJECTIVE Delvin States he is eating more solid foods. Maintaining 3-4000 calories per day OBJECTIVE LAB DATA: N/A REACTIONS (DESCRIPTION, TIME, INTERVENTION AND EFFECTIVENESS)none ASSESSMENT Delvin was awake, alert and she tolerated treatment well. PLAN Return to clinic per routine. documented in this encounter Plan of Treatment Upcoming Encounters Date Type Specialty Care Team Description 10/04/2021 Office Visit Dermatology Tg Velasco MD [facility] ER [address] [place] [address] (Wo rk) documented as of this encounter Visit Diagnoses Diagnosis Drug-induced nausea and vomiting Nausea with vomiting Tonsil cancer Malignant neoplasm of tonsil documented in this encounter Administered Medications Inactive Administered Medications - up to 3 most recent administrations Medication Order MAR Action Action Date Dose Rate Site sodium chloride 0.9% New Bag 04/26/2019 9:35 AM EST 1,000 mLs 500 mL/hr infusion 1,000 mL (1 L), at 500 mL/hr, Intravenous, ONCE, 1 dose, On Mon04/26/19 at 0930 documented in this encounter Care Teams Supervisor Car Installations Relationship Specialty Start Date End Date Gregg Garcia MD PCP - General General Internal Medicine 09/24/18 [address] [place] [address] documented as of this encounter
--- OUTSIDE RECORDS SUMMARY | 2021-09-13 17:57 | XMS_ITS | Encounter Summary ---
:1975 Author Organization [facility] [place] [address] Care Team Providers Name Role Phone Gregg Garcia MD Primary Care Provider Reason for Visit Diagnostic Test (Routine) - Closed Specialty Diagnoses / Procedures Referred By Contact Refer red To Contact Radiology Diagnoses Tonsil cancer Vishal Clemente MD [facility] Rad Nuclear Med Procedures NM PET CT Standard Plus Head and Neck [facility] Singh [place] [address] [place] [address] Referral ID Status Reason Start Date Expiration Date Visits V isits Requested Authorized [id number] Closed Specialty 05/24/2019 08/22/2019 1 1 Service Requested Encounter Details Date Type Department Care Team Description 06/13/2019 Hospital Encounter Nuclear Medicine at Tate Clemente MD [facility] [address] [place] [address] ONCOLOGY [phone] [place], [place] [address] (Wo rk) Social History Tobacco [...] Office Visit Dermatology Tg Velasco MD [facility] ER [address] [place] [id number] (Wo rk) documented as of this encounter Procedures Procedure Name Priority Date/Time Associated Diagnosis Comme nts NM PET CT STANDARD Routine 06/13/2019 11:04 AM Tonsil cancer R esults for this PLUS HEAD AND NECK EDT procedure are in the results section. POCT GLUCOSE Routine 06/13/2019 9:30 AM Results f or this EDT procedure are i n the results section. documented in this encounter Results POCT Glucose (06/13/2019 9:30 AM EDT) athologist Signature POC Glucose 102 65 - 199 [facility] mg/dL [facility] Comment: Supplemental ranges: <140 mg/dL before meals <180 mg/dL all other times of the day Specimen Anatomical Collection Method Collection Time Receive d Time (Source) Location / / Volume Laterality Blood specimen 06/13/2019 9:30 AM 020 9:30 (specimen) EDT AM EDT Vishal Clemente MD POINT OF CARE TEST ORDERABLE S Performing Organization Address City/State/[place] [address] documented in this encounter Visit Diagnoses Not on filedocumented in this encounter Care Teams Emergency Room Doctor Relationship Specialty Start Date End Date Gregg Garcia MD PCP - General General Internal Medicine 09/24/18 [address] [place] [address] documented as of this encounter
--- OUTSIDE RECORDS SUMMARY | 2021-09-13 17:57 | XMS_ITS | Encounter Summary ---
:1975 Author Organization [facility] [place] [address] Care Team Providers Name Role Phone Gregg Garcia MD Primary Care Provider Reason for Visit Diagnostic Test (Routine) - Closed Specialty Diagnoses / Procedures Referred By Contact Refer red To Contact Radiology Diagnoses 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 Ariana Morrow APRN [facility] Rad Nuclear Med Procedures NM PET CT Standard Plus Head and Neck [facility] [place] [address] [place] [address] Fax: Referral ID Status Reason Start Date Expiration Date Visits V isits Requested Authorized [id number] Closed Specialty 11/14/2019 05/12/2020 1 1 Service Requested Encounter Details Date Type Department Care Team Description 11/29/2019 Hospital Encounter Nuclear Medicine at Ariana Morrow Mary [facility] [place] [address] [place] [address] [phone] (Wo rk) Social History Tobacco Use Types [...] 10/04/2021 Office Visit Dermatology Tg Velasco MD [facility] [address] [place] [address] (Wo rk) documented as of this encounter Procedures Procedure Name Priority Date/Time Associated Diagnosis Comme nts NM PET CT STANDARD Routine 11/29/2019 12:24 PM Malignant neopl asm Results for this PLUS HEAD AND NECK EDT of overlapping sites p rocedure are in of tonsil the results section. POCT GLUCOSE Routine 11/29/2019 10:57 AM Results for this EDT procedure are i n the results section. documented in this encounter Results POCT Glucose (11/29/2019 10:57 AM EDT) athologist Signature POC Glucose 101 65 - 199 [facility] mg/dL [facility] Comment: Supplemental ranges: <140 mg/dL before meals <180 mg/dL all other times of the day Specimen Anatomical Collection Method Collection Time Receive d Time (Source) Location / / Volume Laterality Blood specimen 11/29/2019 10:57 0 (specimen) AM EDT 10:57 AM EDT Ariana Morrow APRN POINT OF CARE TEST ORDERABLE S Performing Organization Address City/State/[place] [address] documented in this encounter Visit Diagnoses Not on filedocumented in this encounter Care Teams Char Filter Operator Relationship Specialty Start Date End Date Gregg Garcia MD PCP - General General Internal Medicine 09/24/18 [address] [place] [address] documented as of this encounter
--- OUTSIDE RECORDS SUMMARY | 2021-09-13 17:57 | XMS_ITS | Encounter Summary ---
:1975 Author Organization [facility] [place] [address] Care Team Providers Name Role Phone Gregg Garcia MD Primary Care Provider Reason for Referral Diagnostic Test (Routine) - Closed Specialty Diagnoses / Procedures Referred By Contact Refer red To Contact Radiology Diagnoses Tonsillar cancer Mihir Vences MD [facility] Rad Nuclear Med Procedures NM PET CT Standard Plus Head and Neck [facility] [place] [id number] [place] [address] Referral ID Status Reason Start Date Expiration Date Visits V isits Requested Authorized [id number] Closed Specialty 08/22/2019 02/18/2020 1 1 Service Requested Reason for Visit Diagnostic Test (Routine) - Closed Specialty Diagnoses / Procedures Referred By Contact Refer red To Contact Radiology Diagnoses Tonsillar cancer Mihir Vences MD [facility] Rad Nuclear Med Procedures NM PET CT Standard Plus Head and Neck [facility] [place] [address] [place] [address] Referral ID Status Reason Start Date Expiration Date Visits V isits Requested Authorized [id number] Closed Specialty 08/22/2019 02/18/2020 1 1 Service Requested Encounter Details Date Type Department Care Team Description 08/28/2019 Hospital Encounter Nuclear Medicine at Mihir Vences Tonsillar cancer Shena Shannon MD [facility] [address] [place], [place] RADIATION [phone] ONCOLOGY [phone] [place], [place] [address] Social History Tobacco Use Types [...] Visit Dermatology Tg Velasco MD [facility] ER DR [address] [place], [place] [address] (Wo rk) documented as of this encounter Procedures Procedure Name Priority Date/Time Associated Diagnosis Comme nts NM PET CT STANDARD Routine 08/28/2019 11:36 AM Tonsillar cance r Results for this PLUS HEAD AND NECK EDT procedure are in the results section. POCT GLUCOSE Routine 08/28/2019 10:06 AM Results for this EDT procedure are [...] cancer TECHNIQUE: Following IV injection of 18- aaqvpi-6-yabxkrhaltnb (FDG) a standard uptake of approximately 60 [...] cancer TECHNIQUE: Following IV injection of 18- nhknyd-3-hkoenbtevggm (FDG) a standard uptake of approximately 60 [...] below. Mihir Vences MD IMG PET ORDERABLES POCT Glucose (08/28/2019 10:06 AM EDT) P athologist Signature POC Glucose 93 65 - 199 [facility] mg/dL [facility] Comment: Supplemental ranges: <140 mg/dL before meals <180 mg/dL all other times of the day Specimen Anatomical Collection Method Collection Time Receive d Time (Source) Location / / Volume Laterality Blood specimen 08/28/2019 10:06 0 (specimen) AM EDT 10:06 AM EDT Mihir Vences MD POINT OF CARE TEST ORDERABLE S Performing Organization Address City/State/[place]IP [place] [address] documented in this encounter Visit Diagnoses Diagnosis Tonsillar cancer Malignant neoplasm of tonsil documented in this encounter Administered Medications Inactive Administered Medications - up to 3 most recent administrations Medication Order MAR Action Action Date Dose Rate Site fludeoxyglucose (F-18) FDG Given 08/28/2019 10:10 AM 12.5 mCi Right Arm injection 0-20 mCi EDT 0-20 mCi, Intravenous, ONCE PRN, 1 dose, Starting on Mon08/28/19 at 1016, Until Mon08/28/19 at 1010, Per Protocol, Radiology Contrast, Routine documented in this encounter Care Teams Building Service Worker Relationship Specialty Start Date End Date Gregg Garcia MD PCP - General General Internal Medicine 09/24/18 [address] [place] [address] documented as of this encounter
--- OUTSIDE RECORDS SUMMARY | 2021-09-13 17:57 | XMS_ITS | Encounter Summary ---
:1975 Author Organization [facility] [place] [address] Care Team Providers Name Role Phone Gregg Garcia MD Primary Care Provider Encounter Details Date Type Department Care Team Description 04/24/2019 Clinical Support Hematology/Oncology at Swathi Wise RD Tonsil cancer [address] [phone] Social History Tobacco Use Types [...] documented as of this encounter Progress Notes Swathi Wise RD - 04/24/2019 10:30 AM EST [facility] Follow Up Assessment Referred by: Dr. George Reason for visit: symptom management Patient Name and Diagnosis: Delvin Rosario is a 43 Y m with tonsilar cancer. S/p chemoradiation treatment. Returns to clinic for hydration and anti-emetic. Assessment: HPI Patient Active Problem List Diagnosis Code ??? Neck mass R22.1 ??? 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 Drug-induced nausea and vomiting R11.2, T50.905A ??? Other dysphagia R13.19 Meds: reviewed Labs: No results found for this or any previous visit (from the past 24 hour(s)). Estimated body mass index is 21.74 kg/m?? as calculated from the following: Height as of an earlier encounter on 04/24/19: 188 cm (6' 2.02). Weight as of an earlier encounter on 04/24/19: 76.8 kg (169 lb 6.4 oz). Wt Readings from Last 3 Encounters: 04/24/19 76.8 kg (169 lb 6.4 oz) 04/22/19 76.1 kg (167 lb 12.8 oz) 04/19/19 78.5 kg (173 lb) Weight continues to stay relatively stable. Wt Hx: UBW: 220 - 225 lbs Lost 15-20 lbs 3 mos p/t tx, platuaed off at 215 lbs in October - Nov. 205 lbs on 01/16/19 Estimated daily PO intake: Drinks approx. 3 high calorie shakes spread throughout the day. Each shake is roughly 1000 kcals each. Occasional soups. Starting to try more solid food, including a cheeseburger (small bites, michael with liquids). Soft foods, yogurt, ice cream. Water: at least 3 pints/d Nutrition Support: N/A Has BMX, will use prn. + oxycodone 20 min p/t eating. Tastes starting to return. Bowels: denies issues Nutrition Diagnosis: Characteristics Severity Insufficient Energy Intake Unintended Weight Loss 23% loss total during treatment Loss of Subcutaneous Fat Loss of Muscle Mass Fluid Accumulation Diminished Functional Capacity Met with Delvin during IVF. He completed cCRT on 03/11/09. Patient is mostly unchanged from last visit. His appetite is improving and continues to consume at least 3000 calories per day. Continues high calorie shakes. Cold sensitivity is improving in his mouth, however, still has a fairly sensitive spot it the back of his throat. Taste is improving, almost back to normal. He notices his taste preferencesseem to have changed. Overall, pain is improving. Open to trying more variety of foods. Reviewed/reinforced calorie needs. Continue high calorie shakes/soups with goal for >3000kcal/d. Nutrition Intervention: ? Increase caloric needs ? Modify diet consistency: mostly liquids, soft foods as tolerated ? Handouts: Warm, High Calorie Recipes Nutrition Goals: Maintain adequate oral intake; prevent further weight loss Monitoring and Evaluation: Will follow up with Delvin in 1 week to re-evaluate. Thank you for this consult. LASHONDA Grover documented in this encounter Plan of Treatment Upcoming Encounters Date Type Specialty Care Team Description 10/04/2021 Office Visit Dermatology Tg Velasco MD [facility] ER DR [address] [place], [place] [address] (Wo rk) documented as of this encounter Visit Diagnoses Diagnosis Tonsil cancer Malignant neoplasm of tonsil documented in this encounter Care Teams Jewel Sorter Relationship Specialty Start Date End Date Gregg Garcia MD PCP - General General Internal Medicine 09/24/18 [address] [place] [address] documented as of this encounter
--- OUTSIDE RECORDS SUMMARY | 2021-09-13 17:57 | XMS_ITS | Encounter Summary ---
:1975 Author Organization [facility] [place] [address] Care Team Providers Name Role Phone Gregg Garcia MD Primary Care Provider Reason for Visit Reason Comments IV Medication Hydration Encounter Details Date Type Department Care Team Description 04/22/2019 Infusion Hematology Oncology at [facility] ug-induced nausea and vomiting; [facility] Tonsil cancer [address] [place] [phone] Social History Tobacco Use Types [...] documented as of this encounter Progress Notes Jennifer Pineda RN - 04/22/2019 2:30 PM EST INFUSION THERAPY ADMINISTRATION NOTES DIAGNOSIS: Tonsillar cancer REASON FOR VISIT: Hydration SUBJECTIVE: Delvin offers no complaints. OBJECTIVE: VSS. Weight stable. IV ACCESS: PIV right hand REACTIONS (DESCRIPTION, TIME, INTERVENTION AND EFFECTIVENESS) none ASSESSMENT: Delvin was awake, alert and tolerated treatment well. PIV discontinued prior to dismissal. PLAN: Return to clinic per routine. documented in this encounter Plan of Treatment Upcoming Encounters Date Type Specialty Care Team Description 10/04/2021 Office Visit Dermatology Tg Velasco MD [facility] ER DR [address] [place], [place] [address] (Wo rk) documented as of this encounter Visit Diagnoses Diagnosis Drug-induced nausea and vomiting Nausea with vomiting Tonsil cancer Malignant neoplasm of tonsil documented in this encounter Administered Medications Inactive Administered Medications - up to 3 most recent administrations Medication Order MAR Action Action Date Dose Rate Site sodium chloride 0.9% New Bag 04/22/2019 2:29 PM EST 1,000 mLs 999 mL/hr infusion 1,000 mL (1 L), at 500 mL/hr, Intravenous, ONCE, 1 dose, On 04/22/19 at 1445 documented in this encounter Care Teams Telecommunications Sales Representative Relationship Specialty Start Date End Date Gregg Garcia MD PCP - General General Internal Medicine 09/24/18 [address] [place] [address] documented as of this encounter
--- OUTSIDE RECORDS SUMMARY | 2021-09-13 17:57 | XMS_ITS | Encounter Summary ---
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 Ariana Morrow APRN [facility] Rad Nuclear Med Procedures NM PET CT Standard Plus Head and Neck [facility] [place] [address] [place] [address] Fax: Referral ID Status Reason Start Date Expiration Date Visits V isits Requested Authorized [id number] Closed Specialty 11/14/2019 05/12/2020 1 1 Service Requested Reason for Visit Diagnostic Test (Routine) - Closed Specialty Diagnoses / Procedures Referred By Contact Refer red To Contact Radiology Diagnoses 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 Ariana Morrow APRN [facility] Rad Nuclear Med Procedures NM PET CT Standard Plus Head and Neck [facility] [place] [address] [place] [address] Fax: Referral ID Status Reason Start Date Expiration Date Visits V isits Requested Authorized [id number] Closed Specialty 11/14/2019 05/12/2020 1 1 Service Requested Encounter Details Date Type Department Care Team Description 11/29/2019 Hospital Encounter Nuclear Medicine at Ariana Morrow Malignant neoplasm Shena Ascencio APRN of overlapping sites [facility] [address], [place] [phone] Social History Tobacco Use Types Packs/Day Years [...] Dermatology Tg Velasco MD [facility] ER DR [address] D[address], [place] [address] (Wo rk) documented as of this encounter Procedures Procedure Name Priority Date/Time Associated Diagnosis Comme nts NM PET CT STANDARD Routine 11/29/2019 12:24 PM Malignant neopl asm Results for this PLUS HEAD AND NECK EDT of overlapping sites p rocedure are in of tonsil the results section. documented in this encounter Results NM PET CT Standard Plus Head and Neck (11/29/2019 12:24 PM EDT) Anatomical Region Laterality Modality Positron Emission To mography (PET) Specimen (Source) Anatomical Location Collection Method / Collectio n Time Received Time / Laterality Volume Impressions 11/29/2019 3:19 PM EDT Hypermetabolic, though not enlarged, lymph nodes persist in the left side of the neck. These lymph nodes appear slightly more intense than seen previously, particularly the one seen at image 55. A lthough post-treatment related changes may still account for these findings, th e increase in intensity is concerning and metastatic disease as a cause should also should be considered. Thank you for letting us participate in the care of this patient. For questions regarding this report, please contact th e number below. ? Electronically signed by: Victoria Hawthorne, [facility] ([phone]), at 11/29/2019 3:19 PM Narrative 11/29/2019 3:19 PM EDT EXAMINATION: NM PET CT STANDARD PLUS HEAD AND NECK CLINICAL HISTORY: hx left tonsil SCC; ch emoRT completed 03/11/19- evaluate PET avid lymph nodes on Left seen on 08/28/19 PET ? resolution of PET avid left neck lymph nodes on 08/28/19 scan; disease surveillance TECHNIQUE: Following IV injection of 18- saixgp-1-idydpkwwdwem (FDG) a standard uptake of approximately 60 minutes, a no ncontrast CT scan followed by a PET scan were acquired from the top of head to mi d thighs. The noncontrast CT was used for anatomic localization and photon att enuation correction of the PET scan. Blood glucose level: 101 (mg/dL) FDG dose: 15.2 mCi COMPARISON: August 28, 2019 FINDINGS: HEAD/NECK: Hypermetabolic lymph nodes in the left n dhara at level two (image 55, 61, 66 and 73) are again seen. These lymph nodes ar e slightly more intense than noted in the prior study. Deviation of the tongue toward the left is without change. CHEST: Normal activity in all soft tissue regio ns. The previously noted focus of activity i n the skin of the left upper back is no longer present. Calcified granulomas are present in the left upper and lower lobes. ABDOMEN/PELVIS: Normal activity in all soft tissue regio ns. SKELETON/EXTREMITIES: Normal activity in all regions of the ax ial and visualized appendicular skeleton. Procedure Note Perfecto Shelley MD - 11/29/2019 EXAMINATION: NM PET CT STANDARD PLUS HEA D AND NECK CLINICAL HISTORY: hx left tonsil SCC; ch emoRT completed 03/11/19- evaluate PET avid lymph nodes on Left seen on 08/28/19 PET ? resolution of PET avid left neck lymph nodes on 08/28/19 scan; disease surveillance TECHNIQUE: Following IV injection of 18- ysdcoi-6-hadvufmdewht (FDG) a standard uptake of approximately 60 minutes, a no ncontrast CT scan followed by a PET scan were acquired from the top of head to mi d thighs. The noncontrast CT was used for anatomic localization and photon att enuation correction of the PET scan. Blood glucose level: 101 (mg/dL) FDG dose: 15.2 mCi COMPARISON: August 28, 2019 FINDINGS: HEAD/NECK: Hypermetabolic lymph nodes in the left n dhara at level two (image 55, 61, 66 and 73) are again seen. These lymph nodes ar e slightly more intense than noted in the prior study. Deviation of the tongue toward the left is without change. CHEST: Normal activity in all soft tissue regio ns. The previously noted focus of activity i n the skin of the left upper back is no longer present. Calcified granulomas are present in the left upper and lower lobes. ABDOMEN/PELVIS: Normal activity in all soft tissue regio ns. SKELETON/EXTREMITIES: Normal activity in all regions of the ax ial and visualized appendicular skeleton. IMPRESSION Hypermetabolic, though not enlarged, lym ph nodes persist in the left side of the neck. These lymph nodes appear slightly more intense than seen previously, particularly the one seen at image 55. A lthough post-treatment related changes may still account for these findings, th e increase in intensity is concerning and metastatic disease as a cause should also should be considered. Thank you for letting us participate in the care of this patient. For questions regarding this report, please contact e number below. Electronically signed by: Victoria Hawthorne, [facility] ([phone]), at 11/29/2019 3:19 PM Ariana Morrow FILM CUTTER IMG PET ORDERABLES documented in this encounter Visit Diagnoses Diagnosis 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 Malignant neoplasm of tonsil documented in this encounter Administered Medications Inactive Administered Medications - up to 3 most recent administrations Medication Order MAR Action Action Date Dose Rate Site fludeoxyglucose (F-18) FDG Given 11/29/2019 11:02 AM 15.2 mCi Right Arm injection 0-20 mCi EDT 0-20 mCi, Intravenous, ONCE PRN, 1 dose, Starting on Mon11/29/19 at 1107, Until Mon11/29/19 at 1102, Per Protocol, Radiology Contrast, Routine documented in this encounter Care Teams Acoustic Sensor Operator Relationship Specialty Start Date End Date Gregg Garcia MD PCP - General General Internal Medicine 09/24/18 [address] [place] [address] documented as of this encounter
--- OUTSIDE RECORDS SUMMARY | 2021-09-13 17:57 | XMS_ITS | Encounter Summary ---
:1975 Author Organization [facility] [place] [address] Care Team Providers Name Role Phone Gregg Garcia MD Primary Care Provider Encounter Details Date Type Department Care Team Description 06/13/2019 Hospital Encounter Hematology and Tonsil cancer; Oncology at [facility] [place] [address] Social History Tobacco Use Types Packs/Day [...] [facility] DR BLANCHE DALAL-DERMAT [place], [place] [address] (Wo rk) Scheduled Orders Name Type Priority Associated Diagnoses Order S chedule Cortisol Lab STAT Tonsil cancer 1 Occurrences starting High risk medication 020 until use 06/13/2019 TSH Lab STAT Tonsil cancer 1 Occurrences starting High risk medication 020 until use 06/13/2019 CBC (with Diff) Lab Routine Tonsil cancer 1 Occurrenc es starting 06/13/2019 unti l 06/13/2019 Magnesium Lab Routine Tonsil cancer 1 Occurrences starting 06/13/2019 unti l 06/13/2019 Comprehensive metabolic Lab STAT Tonsil cancer 1 O ccurrences starting panel (non-fasting) 06/13/19 20 until 06/13/2019 documented as of this encounter Procedures Procedure Name Priority Date/Time Associated Comments Diagnosis HEMOGRAM Routine 06/13/2019 11:59 Results for this AM EDT procedure are i n the results section. DIFFERENTIAL, Routine 06/13/2019 11:59 Results fo r this AUTOMATED AM EDT procedure are i n the results section. TSH Routine 06/13/2019 11:59 Results for this AM EDT procedure are i n the results section. MAGNESIUM Routine 06/13/2019 11:59 Results for this AM EDT procedure are i n the results section. CORTISOL Routine 06/13/2019 11:59 Results for this AM EDT procedure are i n the results section. COMPREHENSIVE Routine 06/13/2019 11:59 Results fo r this METABOLIC PANEL AM EDT procedure ar e in (NON-FASTING) the results section. documented in this encounter Results Comprehensive metabolic panel (non-fasting) (06/13/2019 11:59 AM EDT) P athologist Signature Glucose Lvl 140 65 - 199 [facility] mg/dL [facility] Comment: Diabetes: >=200 mg/dL plus symp toms BUN 16 10 - 20 mg/dL [facility] Creatinine 1.11 0.80 - 1.50 mg/dL [facility] Sodium 139 135 - 145 mmol/L [facility] Potassium 4.0 3.5 - 5.0 mmol/L [facility] Comment: Please note: ??Patients with WBC >100,00 0 may have falsely elevated Potassium levels. ??For accurate Potassium quantif ication in these patients send serum separator tube (gold top) for subsequent determinations. ??Contact the Clinical Chemistry Laboratory if there are any qu estions. Chloride 101 98 - 107 mmol/L [facility] CO2 29 22 - 31 mmol/L [facility] Anion Gap 9 5 - 15 mmol/L [facility] Calcium 9.9 8.5 - 10.5 mg/dL [facility] Total Protein 7.2 6.1 - 8.0 gm/dL [facility] Albumin 4.4 3.2 - 5.2 gm/dL [facility] AST 16 0 - 39 unit/L [facility] ALT 27 0 - 55 unit/L [facility] Alk Phos 43 40 - 130 unit/L [facility] Total Bilirubin 0.6 0.2 - 1.3 mg/dL [facility] Estimated GFR 80 >=60 mL/min/1.73 m?? [facility] Comment: The eGFR was calculated using the CKD-EP I equation. As with all creatinine based estimates of kidney function, eGFR values calculated with the CKD-EPI equation are not accurate in patients wi th acute kidney failure, extremes of body mass or the acutely ill. http://[employer]/[facility] eGFR 93 >=60 mL/min/1.73 m?? [facility] Comment: The eGFR was calculated using the CKD-EP I equation. As with all creatinine based estimates of kidney function, eGFR values calculated with the CKD-EPI equation are not accurate in patients wi th acute kidney failure, extremes of body mass or the acutely ill. http://[employer]/[facility] Specimen Anatomical Collection Method Collection Time Receive d Time (Source) Location / / Volume Laterality Blood specimen Venous Draw / 06/13/2019 11:59 06/13/19 20 (specimen) Unknown AM EDT 12:06 PM EDT Resulting Agency Comment Spec In Lab Chris George MD CHEMISTRY ORDERABLES Performing Organization Address City/[facility]/[place] [address] Magnesium (06/13/2019 11:59 AM EDT) P athologist Signature Magnesium 0.85 0.69 - 1.07 [facility] mmol/L [facility] Specimen Anatomical Collection Method Collection Time Receive d Time (Source) Location / / Volume Laterality Blood specimen Venous Draw / 06/13/2019 11:59 06/13/19 20 (specimen) Unknown AM EDT 12:06 PM EDT Resulting Agency Comment Spec In Lab Chris George MD CHEMISTRY ORDERABLES Performing Organization Address City/State/[place] [address] Differential, Automated (06/13/2019 11:59 AM EDT) athologist Signature Neutrophils % 65.6 % [facility] Neutr Abs (ANC) 3.10 1.70 - [facility] 6.10 [facility] x10(3)/[facility]OR[facility]ORY Lymphocytes % 22.8 % [facility] Lymphocytes Abs 1.1 0.9 - 3.2 [facility] x10(3)/[facility] LABORATORY Monocytes % 6.8 % [facility] Monocyte Abs 0.3 0.3 - 0.9 [facility] x10(3)/[facility] LABORATORY Eosinophils % 4.0 % [facility] Eosinophils Abs 0.2 0.0 - 0.4 [facility] x10(3)/[facility] LABORATORY Basophils % 0.6 % [facility] Basophils Abs 0.0 0.0 - 0.1 [facility] x10(3)/[facility] LABOR[facility]ORY Immature Gran % 0.20 % [facility] Comment: Immature granulocytes(IG's)percentage an d absolute count will include metamyelocytes, myelocytes, and promyelo cytes. Blood smears from CBCs yielding IG's will be scanned manually for concor dance. If this scan disagrees with the automated IG or if promyelocytes are not ed, a manual differential will be performed. Emily Gran Abs 0.01 0.00 - 0.04 x10(3)/[facility] Specimen Anatomical Collection Method Collection Time Receive d Time (Source) Location / / Volume Laterality Blood specimen Venous Draw / 06/13/2019 11:59 06/13/19 20 (specimen) Unknown AM EDT 12:06 PM EDT Resulting Agency Comment Spec In Lab Chris George MD HEMATOLOGY ORDERABLES Performing Organization Address City/State/[place] [address] (ABNORMAL) Hemogram (06/13/2019 11:59 AM EDT) Analysis Performed At Patho logist Time Signature WBC 4.7 4.0 - 9.5 [facility] x10(3)/[facility] LABORATORY RBC 4.30 (L) 4.58 - [facility] [place] 5.54 [facility] x10(6)/[facility] LABORATORY Hemoglobin 13.9 13.7 - [place] TE[place] 16.5 gm/dL [facility] Hematocrit 41.3 40.5 - [place] [place] 48.5 % [facility] MCV 96.0 (H) 82.9 - [facility] 93.1 [facility] LABORATORY MCH 32.3 (H) 27.5 - [place] [place]SE[place] 32.1 pg [facility] MCHC 33.7 32.0 - [place] [place] 35.7 gm/dL [facility] Platelets 151 145 - 357 [facility] x10(3)/[facility] LABORATORY RDWSD 40.0 36.0 - [facility] 45.0 [facility] LABORATORY RDWCV 11.4 11.4 - [place] [place] 13.8 % [facility] MPV 8.1 7.6 - 12.9 [facility] LABORATORY nRBC % Auto 0.0 % [facility] nRBC Abs Auto 0.000 0.000 - [place] 0.000 [facility] x10(3)/[facility] LABOR[facility]ORY Specimen Anatomical Collection Method Collection Time Receive d Time (Source) Location / / Volume Laterality Blood specimen Venous Draw / 06/13/2019 11:59 06/13/19 20 (specimen) Unknown AM EDT 12:06 PM EDT Resulting Agency Comment Spec In Lab Chris George MD HEMATOLOGY ORDERABLES Performing Organization Address City/State/[place] [address] TSH (06/13/2019 11:59 AM EDT) P athologist Signature TSH 1.28 0.27 - 4.20 BONNIE GAYTAN mcIU/mL [facility] Specimen Anatomical Collection Method Collection Time Receive d Time (Source) Location / / Volume Laterality Blood specimen Venous Draw / 06/13/2019 11:59 06/13/19 20 (specimen) Unknown AM EDT 12:06 PM EDT Resulting Agency Comment Spec In Lab Chris George MD CHEMISTRY ORDERABLES Performing Organization Address City/State/ZIP Code Phon e Number [address] Cortisol (06/13/2019 11:59 AM EDT) P athologist Signature Cortisol 10.0 mcg/dL [facility] Comment: Reference ranges: ??AM (6-10am): ??4.8-19.5 mcg/dL ??PM (4-8pm) : ??2.5-11.9 mcg/dL Specimen Anatomical Collection Method Collection Time Receive d Time (Source) Location / / Volume Laterality Blood specimen Venous Draw / 06/13/2019 11:59 06/13/19 20 (specimen) Unknown AM EDT 12:06 PM EDT Resulting Agency Comment Spec In Lab Chris George MD CHEMISTRY ORDERABLES Performing Organization Address City/[facility]/[place] [address] documented in this encounter Visit Diagnoses Diagnosis Tonsil cancer Malignant neoplasm of tonsil High risk medication use Encounter for long-term (current) use of other medications documented in this encounter Care Teams Senior Storage Administrator Relationship Specialty Start Date End Date Gregg Garcia MD PCP - General General Internal Medicine 09/24/18 9 [address] [place] [address] documented as of this encounter
--- OUTSIDE RECORDS SUMMARY | 2021-09-13 17:57 | XMS_ITS | Encounter Summary ---
:1975 Author Organization [facility] [place] [address] Care Team Providers Name Role Phone Gregg Garcia MD Primary Care Provider Encounter Details Date Type Department Care Team Description 05/21/2019 Telephone Radiation Oncology a t [facility] Queenie Koenig [address] [phone] Social History Tobacco Use [...] 10/04/2021 Office Visit Dermatology Tg Velasco MD [facility] DR [address]AL[address]DERMAT [place], [place] [address] (Wo rk) documented as of this encounter Visit Diagnoses Not on filedocumented in this encounter Care Teams Blow Up Operator Relationship Specialty Start Date End Date Gregg Garcia MD PCP - General General Internal Medicine 09/24/18 [address] [place] [address] documented as of this encounter
--- OUTSIDE RECORDS SUMMARY | 2021-09-13 17:57 | XMS_ITS | Encounter Summary ---
:1975 Author Organization [facility] [place] [address] Care Team Providers Name Role Phone Gregg Garcia MD Primary Care Provider Encounter Details Date Type Department Care Team Description 09/26/2019 Clinical Support Radiation Oncology at Swathi [address] [place] [address] Social History Tobacco Use Types Packs/Day [...] as of this encounter Progress Notes Swathi Wsie RD - 09/26/2019 3:30 PM EDT [facility] Follow Up Assessment Referred by: Dr. George Reason for visit: symptom management Patient Name and Diagnosis: Delvin Rosario is a 43 Y m with tonsilar cancer. S/p chemoradiation treatment. Returns to clinic for 6 month follow up. Assessment: HPI Patient Active Problem List Diagnosis Code ??? Neck mass R22.1 ??? 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 Drug-induced nausea and vomiting R11.2, T50.905A ??? Other dysphagia R13.19 ?? Meds: reviewed Wt Readings from Last 3 Encounters: 09/26/19 81.6 kg (180 lb) 08/06/19 83 kg (182 lb 14.4 oz) 08/01/19 81.6 kg (180 lb) Weight stable around 180 lbs per patient report Wt Hx: UBW: 220 - 225 lbs ?? Lost 15-20 lbs 3 mos p/t tx, platuaed off at 215 lbs in October - Nov. 205 lbs on 01/16/19 ?? Estimated daily PO intake: Unrestricted diet. Eating a variety of meals, such as burgers, etc. Continues to include a couple protein shakes (usually for breakfast). Will mix with ice cream for increased calories. Xerostomia continues to be an issue and he reports some swallowing difficulty as well. Has seen ACCOUNT MANAGEMENT ASSISTANT. Fluids: drinks water with meals to help with dryness and swallowing Tastes starting to return. Bowels: denies issues ? Nutrition Diagnosis: ?? Characteristics Severity Insufficient Energy Intake Increasing Unintended Weight Loss 23% loss total during treatment; 5 lb weight gain since last RD visit 3 months ago. Loss of Subcutaneous Fat Loss of Muscle Mass Fluid Accumulation Diminished Functional Capacity ? Nutrition Intervention: ?? Increase caloric needs ?? Modify diet consistency: regular diet, as tolerated ?? Increase frequency of meals and snacks ?? Need for supplements: cont protein shakes as needed ?? Nutrition Goals: Maintain adequate oral intake; weight and LBM gain ?? Monitoring and Evaluation: Will follow up as needed. ?? documented in this encounter Plan of Treatment Upcoming Encounters Date Type Specialty Care Team Description 10/04/2021 Office Visit Dermatology Tg Velasco MD [facility] ER [address]MAT [place], [place] [address] (Wo rk) documented as of this encounter Visit Diagnoses Diagnosis Tonsil cancer Malignant neoplasm of tonsil documented in this encounter Care Teams C Software Engineer Relationship Specialty Start Date End Date Gregg Garcia MD PCP - General General Internal Medicine 09/24/18 [address] [place] [address] documented as of this encounter
--- OUTSIDE RECORDS SUMMARY | 2021-09-13 17:57 | XMS_ITS | Encounter Summary ---
:1975 Author Organization [facility] [place] [address] Care Team Providers Name Role Phone Gregg Garcia MD Primary Care Provider Reason for Referral Diagnostic Test (Routine) - Closed Specialty Diagnoses / Procedures Referred By Contact Refer red To Contact Radiology Diagnoses Tonsil cancer Vishal Clemente MD [facility] Rad Nuclear Med Procedures NM PET CT Standard Plus Head and Neck [facility] [place] [id number] [place] [address] Referral ID Status Reason Start Date Expiration Date Visits V isits Requested Authorized [id number] Closed Specialty 05/24/2019 08/22/2019 1 1 Service Requested Reason for Visit Diagnostic Test (Routine) - Closed Specialty Diagnoses / Procedures Referred By Contact Refer red To Contact Radiology Diagnoses Tonsil cancer Vishal Clemente MD [facility] Rad Nuclear Med Procedures NM PET CT Standard Plus Head and Neck [facility] [place] [address] [place] [address] Referral ID Status Reason Start Date Expiration Date Visits V isits Requested Authorized [id number] Closed Specialty 05/24/2019 08/22/2019 1 1 Service Requested Encounter Details Date Type Department Care Team Description 06/13/2019 Hospital Encounter Nuclear Medicine at [facility], Tate Michelle MD Tonsil cancer [facility] [address] [place] [address] ONCOLOGY [phone] [place], [place] [address] (Wo rk) Social History Tobacco [...] Dermatology Tg Velasco MD [facility] ER [address] BL[address]DERMAT [place], [place] [address] (Wo rk) documented as of this encounter Procedures Procedure Name Priority Date/Time Associated Diagnosis Comme nts NM PET CT STANDARD Routine 06/13/2019 11:04 AM Tonsil cancer R esults for this PLUS HEAD AND NECK EDT procedure are in the results section. documented in this encounter [...] chemoRT TECHNIQUE: Following IV injection of 18- fhnygu-9-uqftrsjnqeyn (FDG) a standard uptake of approximately 60 [...] FINDINGS: HEAD/NECK: Complete metabolic and near complete snidi tomic resolution of the previously seen left [...] chemoRT TECHNIQUE: Following IV injection of 18- vjilps-4-gathtzaswucu (FDG) a standard uptake of approximately 60 [...] 1. No evidence for residual active malig lcay in the tonsillar regions. 2. No residual [...] For questions regarding this report, please contact [facility] number below. Electronically signed by: Nilesh Brewster [facility] ([phone]), at 06/13/2019 12:17 PM Vishal Clemente MD IMG PET ORDERABLES documented in this encounter Visit Diagnoses Diagnosis Tonsil cancer Malignant neoplasm of tonsil documented in this encounter Administered Medications Inactive Administered Medications - up to 3 most recent administrations Medication Order MAR Action Action Date Dose Rate Site fludeoxyglucose (F-18) FDG Given 06/13/2019 9:33 AM 11.5 mCi Right Arm injection 0-20 mCi EDT 0-20 mCi, Intravenous, ONCE PRN, 1 dose, Starting on [facility] 06/13/19 at 0939, Until Lee Ann 06/13/19 at 0933, Per Protocol, Radiology Contrast, Routine documented in this encounter Care Teams Working Supervisor Relationship Specialty Start Date End Date Gregg Garcia MD PCP - General General Internal Medicine 09/24/18 [address] [place] [address] documented as of this encounter
--- OUTSIDE RECORDS SUMMARY | 2021-09-13 17:57 | XMS_ITS | Encounter Summary ---
:1975 Author Organization [facility] [place] [address] Care Team Providers Name Role Phone Gregg Garcia MD Primary Care Provider Reason for Referral Speech Therapy (Routine) - Specialty Diagnoses / Procedures Referred By Contact Refer red To Contact Diagnoses Oropharynx cancer Timothy David MD [facility] Latia Adams [place] [address] Referral ID Status Reason Start Date Expiration Date Visits V isits Requested Authorized [id number] Evaluate and 08/07/2019 02/03/2020 12 12 Treat Reason for Visit Reason Comments Follow-up left tonsil SCC, MRI done to day Encounter Details Date Type Department Care Team Description 08/06/2019 Office Visit Otolaryngology at Timothy Hernandes Oropharynx cancer [facility] Latia Weinstein MD (Primary Dx) [place] [address] [facility] [phone] CENTER OTOLARYNGOLOGY DEPT. [place], [place] [address] Social History Tobacco Use Types [...] Oxygen Concentration - - Weight 83 kg (182 lb 14.4 oz) 08/06/2019 2:23 PM EDT ac tual Height 188 cm (6' 2) 08/06/2019 2:23 PM EDT Body Mass Index 23.48 08/06/2019 2:23 PM EDT documented in this encounter Progress Notes Timothy David MD - 08/06/2019 2:30 PM EDT Images from the original note were not included. Subjective: Patient ID: Delvin Rosario is a 44 y.o. male. HPI 44 y.o. male with [id number] squamous cell carcinoma of the left tonsil, p16 (+), < 5 PY smokinghistory. 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 Pertinent history: ?? 1 y [...] R tonsil ?? Normal FNL Imaging: pre-treatment PET-CT: Hypermetabolic lymphadenopathy is present in the left neck at trempq2N, 2B, 1B, ??and 3. Hypermetabolic lymph nodes are present in the right neck at levels 2A and 3. Diffuse, uniform and symmetric activity is present in the palate and tonsils bilaterally are all likelynormal physiologic activity. Post treatment was able to eat a reasonably normal diet but certain solids are difficult to swallow.His taste overall is fair. It is slowly improving. He had an episode 3 weeks ago where he became anorexic and actually started losing weight. He brought it to the attention of Dr eVnces and was placedon a medrol dosepak.. He was doing well at his last follow up on 06/13/19. PET CT done at that time was negative for residual/new tumor. Patient was scheduled for an MRI of the tongue in September. More recently, presented for evaluation of headaches w/ mild L. Tongue deviation on exam at [facility] in [place]. At the time headaches passing on the left side of the back of the ear and temporal region, some pain in the posterior occiput and upper cervical spine. Headache better after single doseof tylenol. No SOB/dysphagia. Underwent brain which I reviewed and did not show anything suspect. Clinically was noted to have L. Tongue and mild non specific submental region and left neck swelling. ??No adenopathy. Call made to Dr Mendoza and patient referred here for another evaluation, underwent MRI of the neck to r/o possible recurrence He denies any fevers, chills, sweats. He is not aware of any neck mass, some submental region lymphedema more prominent now that his weight has crept up. He denies any significant throat pain and denies referred otalgia. He does have issues with tinnitus especially in the right ear which was fairly significant at the end of his radiation therapy and did resolve. No change in swallowing but has been aware of speech becoming more slurred but still very comprehensible. No VPI. No trismus Past Medical History: Diagnosis Date ??? High cholesterol Past Surgical History: Procedure Laterality Date ??? PRO BIOPSY OROPHARYNX Bilateral 12/10/2018 BIOPSY, OROPHARYNX (WRVU 1.44) performed by Timothy David MD at [facility] MAIN OR ??? PRO LARYNGOSCOPY, DIRCT, OP SCOPE, BIOPSY Bilateral 12/10/2018 LARYNGOSCOPY, MICROSCOPE, WITH BIOPSY (WRVU 3.55) performed by Timothy David MD at [facility] MAIN OR ??? PRO NASAL ENDOSCOPY, DX Bilateral 12/10/2018 NASAL ENDOSCOPY DIAGNOSTIC, UNILATERAL OR BILATERAL (WRVU 1.1) performed by Timothy David MD at [facility] MAIN OR Patient Active Problem List Diagnosis Code ??? Neck mass R22.1 ??? 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 Drug-induced nausea and vomiting R11.2, T50.905A ??? Other dysphagia R13.19 Current Outpatient Medications: ??? acetaminophen (Tylenol) 500 [...] to thin secretions, Disp: , Rfl: ??? diphenhydrAMINE/aluminum-magnesium hydroxide with simethicone/lidocaine (BMX) (6.67 mg-0.83 mg-13.33 mg-1.33 mg/mL) oral liquid, Take 10 mLs by mouth every 4 hours as needed., Disp: 300 mL, Rfl: 11 ??? cholecalciferol, [...] 600 mg tablet, , Disp: , Rfl: ??? nystatin (Mycostatin) 100,000 [...] on 04/01/2019), Disp: 20 tablet, Rfl: 3 No current facility-administered medications for this visit. [...] file Occupational History ??? 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 Financial resource strain: Not on file ??? Food insecurity Worry: Not on file Inability: Not on file ??? Transportation needs Medical: Not on file Non-medical: Not on file Tobacco Use ??? Smoking status: Former Smoker Packs/day: 0.50 Years: 3.00 Pack years: 1.50 Types: Cigarettes Last attempt to quit: 2000 Years since quittin.4 ??? Smokeless tobacco: Never Used Substance and [...] normal no stridor). HENT: Head: Normocephalic. Jaw: There is normal [...] No stridor. Lymphadenopathy: Cervical: No cervical adenopathy (Post radiation change with submental lymphedema). Skin: General: Skin is warm. Findings: No erythema. Neurological: Mental Status: He is alert and oriented to person, place, and time. Cranial Nerves: No cranial nerve deficit. Deep Tendon Reflexes: Reflexes are normal and symmetric. Psychiatric: Behavior: Behavior normal. Thought Content: Thought content normal. Judgment: Judgment normal. Assessment and Plan: MRI of the tongue/neck reviewed with patient: Image below Extensive left-sided T2 prolongation enlargement and enhancement of the left tongue and left tongue base. Edema involving the left retromolar trigone. Soft tissue edema involving the left and anterior neck. Mild prevertebral edema. This appearance is similar to the recent prior examination of 07/31/2019. ?? No Lymphadenopathy within the imaged upper neck. ?? No evidence of skull base mass. No abnormal cranial nerve enhancement. ?? In view of the patient's symptoms and [...] are normal except for the following: Nasopharynx normal as well as base of tongue with retained secretions in the valleculae. No focal lesion. Piriforms intact. Normal larynx anatomy Vocal cord mobility normal ASSESSMENT/PLAN: Based on today's findings Patient has had an excellent response to his chemoradiation therapy for his tonsil cancer. He needs to be followed on a regular basis and we will proceed to see him as per our head and neck grid. 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 Discussed that speech therapy may be very helpful. Patient would liek for this to be done closer to home. documented in this encounter Plan of Treatment Upcoming Encounters Date Type Specialty Care Team Description 10/04/2021 Office Visit Dermatology Tg Velasco MD [facility] ER [address] BL[address] DAL[address] [place], [place] [address] ( rk) Scheduled Referrals Name Type Priority Associated Diagnoses Order S chedule Referral to Speech Outpatient Referral Routine Oropharynx canc er Ordered: Therapy 08/07/2019 documented as of this encounter Visit Diagnoses Diagnosis Oropharynx cancer - Primary Malignant neoplasm of oropharynx, unspec ified site documented in this encounter Care Teams Eligibility Services Representative Relationship Specialty Start Date End Date Gregg Garcia MD PCP - General General Internal Medicine 09/24/18 [address] [place] [address] documented as of this encounter
--- OUTSIDE RECORDS SUMMARY | 2021-09-13 17:57 | XMS_ITS | Encounter Summary ---
:1975 Author Organization [facility] [address] Care Team Providers Name Role Phone Gregg Garcia MD Primary Care Provider Encounter Details Date Type Department Care Team Description 12/02/2019 Telephone Radiation Oncology a t [facility] Ariana Morrow APRN [facility] [place] [address] [place] [address] [place] [address] [phone] (Wo rk) Social History Tobacco Use Types [...] this encounter Miscellaneous Notes Telephone Encounter - Ariana Morrow APRN - 12/02/2019 11:26 AM EDT Telephone call with Delvin re: results of PET scan done 11/29/19. Persistent lymph nodes left side of neck that are a little more intense on PET scan but not enlarged. No other sites are PET avid. Reviewed with Dr. Vences- plan to present case/review PET scan at head/neck tumor board this week on 12/04. Patient has follow up visit /scope with Dr. David/Jeremy VALDEZ on 12/04 as well. Delvin is agreeable with the plan. Ariana Morrow, DNP, ANP, MAGAZINE FILLER, AOCNP Radiation Oncology EXAMINATION: NM PET CT STANDARD PLUS HEAD AND NECK 11/29/19 ?? CLINICAL HISTORY: hx left tonsil SCC; chemoRT completed 03/11/19- evaluate PET avid lymph nodes on Left seen on 08/28/19 PET ? resolution of PET avid left neck lymph nodes on 08/28/19 scan; disease surveillance ? TECHNIQUE: Following IV injection of 31-wrfhpn-4-deoxyglucose (FDG) a standard uptake of approximately 60 minutes, a noncontrast CT scan followed by a PET scan were acquired from the top of head to mid thighs. The noncontrast CT was used for anatomic localization and photon attenuation correction of the PET scan. ?? Blood glucose level: 101 (mg/dL) ?? FDG dose: 15.2 mCi ?? COMPARISON: August 28, 2019 ?? FINDINGS: ?? [...] a cause should also should be considered. ?? Thank you for letting us participate in the care of this patient. For questions regarding this report, please contact the number below. documented in this encounter Plan of Treatment Upcoming Encounters Date Type Specialty Care Team Description 10/04/2021 Office Visit Dermatology Tg Velasco MD [facility] ER DR BL[address] D[address]AL[address] [place], [place] [address] (Wo rk) documented as of this encounter Visit Diagnoses Not on filedocumented in this encounter Care Teams Training Instructor Relationship Specialty Start Date End Date Gregg Garcia MD PCP - General General Internal Medicine 09/24/18 [address] [place] [address] documented as of this encounter
--- OUTSIDE RECORDS SUMMARY | 2021-09-13 17:57 | XMS_ITS | Encounter Summary ---
:1975 Author Organization [facility] [place] [address] Care Team Providers Name Role Phone Gregg Garcia MD Primary Care Provider Reason for Referral Diagnostic Test (Routine) - Closed Specialty Diagnoses / Procedures Referred By Contact Refer red To Contact Radiology Diagnoses 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 Ariana Morrow APRN [facility] Rad Nuclear Med Procedures NM PET CT Standard [place] [address] [place] [address] Fax: Referral ID Status Reason Start Date Expiration Date Visits V isits Requested Authorized [id number] Closed Specialty 11/14/2019 05/12/2020 1 1 Service Requested hysical Therapy (Routine) - Specialty Diagnoses / Procedures Referred By Contact Refer red To Contact Diagnoses 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 Localized edema Status post radiation therapy [place] [address] Referral ID Status Reason Start Date Expiration Date Visits V isits Requested Authorized [id number] Evaluate and 09/26/2019 03/24/2020 12 12 Treat Encounter Details Date Type Department Care Team Description 09/26/2019 Office Visit Radiation Oncology at Ariana Morrow, 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; [facility] SURFACING TECHNICIAN Status post radiation therapy; [facility] Hyp othyroidism, acquired; Drive DR M[address] [place], [place], [place] [id number] [phone] Social History Tobacco Use Types Packs/Day Years [...] Sign Reading Time Taken Comments Blood Pressure 118/64 09/26/2019 12:57 PM EDT Pulse 65 09/26/2019 12:57 PM EDT Temperature - - Respiratory Rate 17 09/26/2019 12:57 PM EDT Oxygen Saturation 99% 09/26/2019 12:57 PM EDT Inhaled Oxygen Concentration - - Weight 81.6 kg (180 lb) 09/26/2019 12:57 PM EDT Height - - Body Mass Index 23.11 08/06/2019 2:23 PM EDT documented in this encounter Progress Notes KunalkemarAriana mariano, SURFACING TECHNICIAN - 09/26/2019 1:00 PM EDT Images from the original note were not included. Subjective: Patient ID: Delvin Rosario is a 44 y.o. male. 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 Definitive STOGY ROLLER completed 03/11/19. Chemo: cisplatinX 2, then switched to carboplatin/paclitaxel (completed 03/11/19). RT 01/16/19-03/11/2019 to left tonsil, involved nodes, elective jose eduardo basins (Total Dose:??70 Gy @ 2 Gy/fxn, 59.5 Gy @ 1.7 Gy/fxn, 56 Gy @1.6 Gy/fxn). Plan images: Interim hx: Seen by Dr. Vences 06/12/09- PET showed small node on right with low level activity ? reactive; [facility] C[facility]TER/dental delayed due to pandemic. TSH normal. Plan to repeat PET-CT in [address] David 08/06/19- loss of appetite, tongue deviation, headaches, brain MRI neg; submentalregional lymphedema, tinnitus right ear; flex laryngoscopy- normal nasopharynx, BOT, retained secretions, piriforms intact normal larynx, vocal cord normal; MRI changes most likely related to denervation atrophy left tongue- speech therapy recommended. 08/22/19: reviewed at tumor board- move up CT/PET; done 08/28/19- 3 non-enlarged but newly hypermetabolic LN on left neck; the 2 previously seen on the right resolved; Review of Systems Symptom Description Intervention Weight/nutrition/appetite/tube feed Good appetite; gained 1/2 of weight loss back (50 pound loss)- steady now; no G tube Dysphagia +; can eat anything; may get stuck, drinks lots of water; chews things smaller; sometimes difficulty moving food around or use straw due to left sided tongue issues Seeing LINING CUTTER 09/29 Dysgeusia/xerostomia Taste okay, doesn't enjoy eating- tastes a little different; no spicy food; notrising with baking soda Meeting with dietitian today Dental No dental check up yet- will call He wiill call dentist Voice changes No change in voice- speech difficulty - ongoing due to left tongue movement difficulties 1st appointment [facility] C[facility]TER on 09/30/19 Otalgia/hearing changes Tinnitus both ears- may be improving; hearing seems to be okay Audiology appt this afternoon Neck fibrosis/lymphedema/pain Tight/sore neck; submental neck edema seems to be increased; doing some massage Went to PT 3-4 weeks initially improved, discharged; but now worsened Skin changes Tight/thick in area of RT Respiratory/Smoking No smoking Alcohol Rarely Endocrine TSH 06/13/19 1.28 (low) Repeat TSH today Mood No depression/anxiety; , children (son 4, daughter 6) parents are supportive Sleep okay Exercise No specific; gardening, dogs, playing with kids Support , family Financial none Advanced directives Not discussed 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 Cancer Distress Responses: Cancer Distress 09/26/2019 Distress 1 When asked about 1- states nothing specific, just overall experience, not back to baseline Objective: Physical Exam Most Recent Vitals: 09/26/19 1257 BP: 118/64 Pulse: 65 Resp: 17 SpO2: 99% Wt & BMI By Encounter Date Office Visit from 09/26/2019 in Radiation Oncology at [facility] Office Visit from 08/06/2019 in Otolaryngology at [facility] Weight 81.6 kg (180 lb) 1 09/26/2019 1257 83 kg (182 lb 14.4 oz) [actual] 1 08/06/2019 1423 BMI -- 23.48 1 08/06/2019 1423 General: seen alone, appears well HEENT: anicteric, oroph: tongue deviates to left with protrusion, membranes dry; no thrush or mucositis Neck: + submental lymphedema; full ROM, skin intact Adenopathy: no cervical adenopathy palpable Cor: RRR without murmur Lungs: CTA, no wheezing Extremities; no edema Muscle skeletal: normal gait Neuro: other than tongue deviation, grossly intact Psych: good eye contact Imaging reviewed : CT/PET 08/28/19: NM PET CT STANDARD PLUS HEAD AND NECK ?? CLINICAL HISTORY: confirm resolution of FDG Avid node s/p chemoradiotherapy for HN cancer ?? TECHNIQUE: Following IV injection of 48-vkwbva-1-deoxyglucose (FDG) a standard uptake of approximately 60 minutes, a noncontrast CT scan followed by a PET scan were acquired from the top of head to mid thighs. The noncontrast CT was used for anatomic localization and photon attenuation correction of the PET scan. ?? Blood glucose level: 93 (mg/dL) ?? FDG dose: 12.5 mCi ?? COMPARISON: June 13, 2019 ?? FINDINGS: ?? HEAD/NECK: Three nonenlarged but newly hypermetabolic lymph nodes are seen in the left side of the neck at level two. ?? The previously described right level two lymph node with mild FDG activity has metabolically resolved. Deviation of the tongue to the left is no change in appearance since the prior study. No significant abnormal activity is noted associated with the tongue. ?? CHEST: There is a focus of mildly increased activity in the skin of the left upper back (whole body image 86). This is most typical of an area of mild inflammation. ?? Multiple small, nonhypermetabolic nodules in the left lung are present, several of which are calcified, and unchanged. These most likely represent granulomas. ?? ABDOMEN/PELVIS: No abnormal activity is present. ?? SKELETON/EXTREMITIES: Decreased activity in the cervical and upper thoracic spines is due to prior radiation and is unchanged. ?? IMPRESSION The previously seen right-sided hypermetabolic cervical lymph [...] consider follow-up imaging to the short resolution. ?? Thank you for letting us participate in the care of this patient. For questions regarding this report, please contact the number below. Electronically signed by: Perfecto Shelley [facility] ([phone]), at 08/28/2019 1:20 PM Assessment and Plan: Delvin Rosario??is a 44 y.o.??male presenting for follow up of [id number] squamous cell carcinoma of the left tonsil, p16 (+), <??5 PY smoking history. Definitive STOGY ROLLER completed 03/11/19. # SCC left tonsil: no concerning symptoms today. Scoped by Dr. Gutierrez in August,. We reviewed the PET resutls from 08/28/19- he had read them on line but had not discussed results. Plan per Dr. Vences is to repeat CT -PET in 3 mos from 08/28/19. Order placed # Worsening lymphedema neck (submental) area- agrees to referral to PT in [facility]- may need compression garment. Explained it's better to be aggressive with therapy for lymphedema, aiming to avoid chronic problem. Referral done # speech and swallowing alteration due to left sided tongue difficulty (deinnervation of hypoglossalnerve from RT)- seeing LINING CUTTER on Monday # tinnitus: audiology evaluation today # acquired hypothyroidism from RT; checking TSH today # dental: he agreed to call dentist for appointment Follow up per H/N grid. Delvin Latia Abraham had the opportunity to ask questions and I answered them to the best of my knowledge.Delvin Latia Abraham agreed to call radiation oncology in between visits if he/she has any questions/concerns or new symptoms in regards to the radiation therapy. Ariana Morrow, DNP, ANP, SURFACING TECHNICIAN, AOCNP Nurse Practitioner Radiation Oncology documented in this encounter Miscellaneous Notes Addendum Note - Carlo Ahn - 09/26/2019 1:00 PM EDT Addended by: CARLO AHN on: 09/26/2019 03:25 PM Modules accepted: Orders documented in this encounter Plan of Treatment Upcoming Encounters Date Type Specialty Care Team Description 10/04/2021 Office Visit Dermatology Tg Velasco MD [facility] DR BLANCHE DALAL[facility]MAT [place], [place] [address] (Wo rk) Scheduled Referrals Name Type Priority Associated Diagnoses Order S chedule Referral to Outpatient Referral Routine Malignant neoplasm of Ordered: Physical Therapy overlapping sites of tonsil Localized edema Status post radiation therapy documented as of this encounter Procedures Procedure Name Priority Date/Time Associated Comments Diagnosis HC THYROID Routine 09/26/2019 3:30 PM Hypothyroidism, Result s for this STIMULATING HORMONE, EDT acquired procedu re are in SERUM the results section. documented in this encounter [...] below. ? Electronically signed by: Victoria Hawthorne, [facility] ([phone]), at 11/29/2019 3:19 PM Narrative 11/29/2019 3:19 PM EDT EXAMINATION: NM PET CT STANDARD PLUS HEAD AND NECK CLINICAL HISTORY: hx left tonsil SCC; ch emoRT completed 03/11/19- evaluate PET avid lymph nodes on Left seen on 08/28/19 PET ? resolution of PET avid left neck lymph nodes on 08/28/19 scan; disease surveillance TECHNIQUE: Following IV injection of 18- moatqb-0-katmsitdmrog (FDG) a standard uptake of approximately 60 [...] surveillance TECHNIQUE: Following IV injection of 18- bejbpt-4-dgxizrhgbfgc (FDG) a standard uptake of approximately 60 [...] th e number below. Electronically signed by: Victoria Hawthorne, [facility] ([phone]), at 11/29/2019 3:19 PM Ariana Morrow APRN IMG PET ORDERABLES TSH (09/26/2019 3:30 PM EDT) P athologist Signature TSH 1.77 0.27 - 4.20 SHENA GAYTAN mcIU/mL [facility] Specimen Anatomical Collection Method Collection Time Receive d Time (Source) Location / / Volume Laterality Blood specimen 09/26/2019 3:30 PM 020 3:47 (specimen) EDT PM EDT Resulting Agency Comment Spec In Lab Ariana Morrow APRN CHEMISTRY ORDERABLES Performing Organization Address City/State/ZIP Code Phon e Number [place] [id number] documented in this encounter Visit Diagnoses Diagnosis 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 Malignant neoplasm of tonsil Status post radiation therapy Convalescence following radiotherapy Hypothyroidism, acquired Unspecified hypothyroidism Localized edema Edema 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 Malignant neoplasm of tonsil documented in this encounter Care Teams Dental Billing Specialist Relationship Specialty Start Date End Date Gregg Garcia MD PCP - General General Internal Medicine 09/24/18 [address] [place] [address] documented as of this encounter
--- OUTSIDE RECORDS SUMMARY | 2021-09-13 17:57 | XMS_ITS | Encounter Summary ---
:1975 Author Organization [facility] [place] [address] Care Team Providers Name Role Phone Gregg Garcia MD Primary Care Provider Reason for Visit Reason Onset Date Comments Other 08/22/2019 changed Pet-CT to Encounter Details Date Type Department Care Team Description 08/22/2019 Telephone Radiation Oncology at [facility] her (changed Pet- CT to [facility] 08/28/2019) [address] [place] [phone] Social History Tobacco Use Types Packs/Day Years [...] MD [facility] DR BLANCHE DALAL-DER[place], [place] [address] (Wo rk) documented as of this encounter Visit Diagnoses Not on filedocumented in this encounter Care Teams Publications Editor Relationship Specialty Start Date End Date Gregg Garcia MD PCP - General General Internal Medicine 09/24/18 [address] [place] [address] documented as of this encounter
--- OUTSIDE RECORDS SUMMARY | 2021-09-13 17:57 | XMS_ITS | Encounter Summary ---
:1975 Author Organization [facility] [place] [address] Care Team Providers Name Role Phone Gregg Garcia MD Primary Care Provider Reason for Visit Audiology Exam (Routine) - Closed Specialty Diagnoses / Procedures Referred By Contact Refer red To Contact Audiology Diagnoses Hearing loss, unspecified hearing loss type, unspecified laterality Tinnitus, unspecified laterality Timothy David MD Perez, Ashley N, AUD [facility] D R [facility] OTOLARYNGOLOGY DEPT. [place] [address] [place] [address] Fax: Referral ID Status Reason Start Date Expiration Date Visits V isits Requested Authorized [id number] Closed Specialty 08/08/2019 08/07/2020 1 1 Service Requested Encounter Details Date Type Department Care Team Description 09/26/2019 Office [address] Audiology at [facility] Paulette Rebolledo, Tinnitus of both ears; [facility] AUD Sensorineural hearing loss, bilateral [address] [place], [place] CENTER [address] AUDIOLOGY DEPT [phone] [place], [place] [address] Social History Tobacco Use Types [...] documented as of this encounter Progress Notes Paulette Rebolledo, AUD - 09/26/2019 2:15 PM EDT AUDIOLOGY SECTION AUDIOLOGIC EVALUATION Name: Delvin Rosario Age: 44 y.o. Referring provider: Dr. David Date: 09/26/2019 Reason for referral/visit: Evaluation of hearing loss History: Mr. Rosario is a new patient to the Audiology Section. Medical history includes left tonsillar cancer s/p chemoradiation. He noted tinnitus of both ears that developed during his chemo treatment of Cisplatin. He reported this to his doctor and they switched him on to a different treatment. Mr. Rosariostated that the tinnitus hasn't gone away. He doesn't feel that his hearing is damaged but he noted that his hearing may be more sensitive to certain noises or as if there is a distortion. He may have noticed some difficulty hearing in background noise. The tinnitus has not impacted sleep or concentration. Other otologic symptoms: -Otalgia: Denied -Aural fullness: ETD on the right; longstanding issue; he had a hearing test that was reportedly normal about 10 years ago -Dizziness: Denied -Familial hearing loss: Denied -Noise exposure: concerts -Trauma of the head/neck: Denied -Surgery of the head/neck: Denied EVALUATION: (please refer to audiogram) RESULTS/IMPRESSIONS: ?? Otoscopy was unremarkable, bilaterally. ?? Tympanometry indicated TM mobility and normal middle ear pressure for both ears. ?? Audiometric testing was consistent with bilateral normal/mild to moderate high frequency sensorineural hearing loss from 6320-1967 Hz. ?? Word recognition was excellent for both ears at an elevated presentation level of 70 dB HL. ?? There is not a baseline audiogram for comparison, though Mr. Rosario stated that he had a hearingtest about 10 years ago that was normal. ?? Today's results indicated communicatively significant hearing loss. Individuals with high frequency hearing loss experience difficulty hearing clearly or accurately while listening in everyday environments including background noise. Given the degree and configuration of hearing loss, difficulties are expected in hearing the high-frequency speech sounds of 's', 'f', and 'th'. Delvin Rosario will rely upon visual cues to fill in the gaps when speech sounds are not clear/audible in running speech. ?? Delvin Rosario is not a candidate for amplification at this time. RECOMMENDATIONS: 1. Re-evaluation of hearing to monitor the high frequency hearing loss and tinnitus. Will discuss with Dr. David to determine time frame for follow up. Discussed that Mr. Rosario should follow up immediately if any sudden changes develop regarding auditory status. 2. Use of communication strategies in noisy environments (i.e speaking face to face and reducing background noise). 3. Use of hearing protection when exposed to hazardous noise. Please do not hesitate to contact this Section at [phone] if there are questions regarding thisreport or its recommendations. Matias Miranda Board [place] [address] Attachment: audiogram CC: Dr. David documented in this encounter Plan of Treatment Upcoming Encounters Date Type Specialty Care Team Description 10/04/2021 Office Visit Dermatology Tg Velasco MD [facility] DR BL[address] DALAL[facility], [place] [address] (Wo rk) documented as of this encounter Procedures Procedure Name Priority Date/Time Associated Comments Diagnosis COMPREHENSIVE HEARING Routine 09/26/2019 2:07 PM Results for this TEST EDT procedure are i n the results section. documented in this encounter Results Comprehensive hearing test (09/26/2019 2:07 PM EDT) Specimen (Source) Anatomical Collection Method Collection Time Re ceived Time Location / / Volume Laterality 09/26/2019 2:07 PM EDT Narrative [facility] - 09/26/2019 2:07 PM EDT See report. Recorded MEEI. QuickSIN of + 0.5 dB SNR loss AU at 70 dB HL. Procedure Note Unknown - 09/26/2019Formatting of this n ote might be different from the original. See report. Recorded MEEI. QuickSIN of + 0.5 dB SNR loss AU at 70 dB HL. Unknown AUDIOLOGY SERVICES ORDERABLE S Performing Organization Address City/State/ZIP Code Phon e Number [facility] documented in this encounter Visit Diagnoses Diagnosis Tinnitus of both ears Unspecified tinnitus Sensorineural hearing loss, bilateral documented in this encounter Care Teams Neuropsychology Division Chief Relationship Specialty Start Date End Date Gregg Garcia MD PCP - General General Internal Medicine 09/24/18 [address] [place] [address] documented as of this encounter
--- OUTSIDE RECORDS SUMMARY | 2021-09-13 17:57 | XMS_ITS | Encounter Summary ---
:1975 Author Organization [facility] [place] [address] Care Team Providers Name Role Phone Gregg Garcia MD Primary Care Provider Reason for Visit Diagnostic Test (Routine) - Closed Specialty Diagnoses / Procedures Referred By Contact Refer red To Contact Radiology Diagnoses Tonsillar cancer Mihir Vences MD [facility] Rad Nuclear Med Procedures NM PET CT Standard Plus Head and Neck [facility] [place] [address] [place] [address] Referral ID Status Reason Start Date Expiration Date Visits V isits Requested Authorized [id number] Closed Specialty 08/22/2019 02/18/2020 1 1 Service Requested Encounter Details Date Type Department Care Team Description 08/28/2019 Hospital Encounter Nuclear Medicine at Mihir Vences Mary Hitchcock [place] [address] RADIATION ONCOLOGY [phone] [place], [place] [address] (Wo rk) Social History Tobacco [...] Dermatology Tg Velasco MD [facility] [address] BLANCHE DALAL-DERMAT [place], [place] [address] [...] cancer TECHNIQUE: Following IV injection of 18- gjjgsb-0-eykbkujunyjw (FDG) a standard uptake of approximately 60 [...] cancer TECHNIQUE: Following IV injection of 18- ryhlop-6-vfkaltejnxxd (FDG) a standard uptake of approximately 60 [...] ORDERABLES documented in this encounter Visit Diagnoses Not on filedocumented in this encounter Care Teams Shuttler Relationship Specialty Start Date End Date Gregg Garcia MD PCP - General General Internal Medicine 09/24/18 [address] [place] [address] documented as of this encounter
--- OUTSIDE RECORDS SUMMARY | 2021-09-13 17:57 | XMS_ITS | Encounter Summary ---
:1975 Author Organization [place] [address] Care Team Providers Name Role Phone Gregg Garcia MD Primary Care Provider Encounter Details Date Type Department Care Team Description 04/29/2019 [facility] ONCOLOGY DEPT. [place], [place] [phone] Social History Tobacco Use Types Packs/Day Years [...] Sign Reading Time Taken Comments Blood Pressure 105/61 04/29/2019 2:35 PM EST Pulse 94 04/29/2019 2:35 PM EST Temperature 36.6 ??C (97.9 ??F) 04/29/2019 2:35 PM EST Respiratory Rate 16 04/29/2019 2:35 PM EST Oxygen Saturation 100% 04/29/2019 2:35 PM EST Inhaled Oxygen Concentration - - Weight 77.1 kg (170 lb) 04/29/2019 2:35 PM EST Height 188 cm (6' 2.02) 04/29/2019 2:35 PM EST Body Mass Index 21.82 04/29/2019 2:35 PM EST documented in this encounter Progress Notes Chris George MD - 04/29/2019 2:30 PM EST Hematology/Oncology Clinic [facility] Patient Active Problem List Diagnosis ??? Other [...] carbo+paclitaxel 02/25/2019 ??? Neck mass Med Onc checkup. Now 7 weeks from completion of chemoRT. Had IV hydration 3 times last week. He is not sure if it helped very much. His energy is still low but he is getting up with ADLs. Mouth pain is much better, specifically the roof of mouth pain has resolved. He still has some discomfort in the throat. He continues to swish with nystatin. Dry mouth is emerging is a bigger problem. He is also developed some anterior lymphedema; he has been evaluated by physical therapy and is starting a course of lymphedema therapy and self-MLD. He still needing occasional narcotics for pain in the throat, often taking a dose before eating. He takes some acetaminophen but does not feel that he gets much relief from it. Tinnitus is about the same, hearing function is mildly compromised but stable. Physical exam: He looks well, in brighter spirits Oral exam shows good hydration, no trismus. Tongue is mobile. He has residual grade 1 mucositis particularly in the left tonsil tumor bed, but no visible tumor. There is some spotty exudate consistent with candidiasis along the left tonsillar pillar posteriorly. The mucosa of the hard palate is normal. Neck exam shows no palpable adenopathy. He has grade 2 focal anterior lymphedema. Skin in the radiation field has healed completely. 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 Grade 1 tinnitus related to cisplatin chemotherapy. He is still fatigued, but his appetite and taste sensation have improved. I wonder how much of his fatigue at this point might be from narcotic side effects. Plan: I recommended that he try to switch from oxycodone over to a combination of ibuprofen and acetaminophen. Continue oral hydration, and concentrate on salt containing fluids such as chicken soup, Ramen noodles, etc. I do not believe he needs intravenous hydration at this point, but he knows to call should he start to feel dehydrated or hypotensive. Continue lymphedema physical therapy and home therapy. He has a follow-up visit with Dr. Fuentes next week, and I will plan to see him again on May 12. He knows to call should problems arise in the meantime Continue nystatin swish and swallow. Chris George MD, FACP enterostomal nurse Hematology/Oncology Section [facility]/[place] [address] Voice recognition software used for this note; please excuse assurance assistant errors. I personally reviewed past medical, surgical, family medical histories, reviewed current medications, vital signs, labs, and performed full review of systems. These are documented below the narrative for clarity and succinctness. Outpatient Medications Marked as Taking for the 04/29/19 encounter (Office Visit) with Chris George MD [...] 4 hourswhile awake to thin secretions ??? acetaminophen (TYLENOL) 325 mg Tablet Take 650 mg by mouth every 4 hours as needed for Pain. ??? atorvastatin (LIPITOR) 40 mg Tablet 0 ??? multivitamin (THERAGRAN) Tablet Take 1 tablet by mouth daily. ??? ubidecarenone (COENZYME Q10) 100 mg Tablet Take by mouth daily. Review of Systems: Review of systems is negative for other LOAN WORKOUT OFFICER, bone, pulmonary, cardiac, GI, , extremity, neurologic, endocrine, skin, constitutional, emotional, or functional problems. Vitals Office Visit from 04/29/2019 in Hematology/Oncology at [facility] Weight 77.1 kg (170 lb) Height 188 cm (6' 2.02) BSA (Calculated - sq m) 2.01 sq meters BMI (Calculated) 21.81 Temp 36.6 ??C (97.9 ??F) Temp src Temporal Heart Rate 94 Heart Rate Source Right, NIBP Resp 16 BP 105/61 BP Location Right arm Patient Position Sitting SpO2 100 % Karnofsky Score 70 Body surface area is 2.01 meters squared. Wt Readings from Last 3 Encounters: 04/29/19 77.1 kg (170 lb) 04/26/19 77.5 kg (170 lb 12.8 oz) 04/24/19 76.8 kg (169 lb 6.4 oz) No results found for this or any previous visit (from the past 72 hour(s)). ++++++++++++++++++++++++++++++++++++++++++++++++++++ documented in this encounter Plan of Treatment Upcoming Encounters Date Type Specialty Care Team Description 10/04/2021 Office Visit Dermatology Tg Velasco MD [facility] [place] [address] BL[address] DALAL[address]DERMAT [place], [place] [address] (Wo rk) documented as of this encounter Visit Diagnoses Diagnosis Tonsil cancer Malignant neoplasm of tonsil documented in this encounter Care Teams Broach Operator Relationship Specialty Start Date End Date Gregg Gacria MD PCP - General General Internal Medicine 09/24/18 [address] [place] [address] documented as of this encounter
--- OUTSIDE RECORDS SUMMARY | 2021-09-13 17:58 | XMS_ITS | Encounter Summary ---
:1975 Author Organization [place] [address] Care Team Providers Name Role Phone Gregg Garcia MD Primary Care Provider Reason for Visit Reason Comments IV Medication Hydration Encounter Details Date Type Department Care Team Description 04/01/2019 Infusion Hematology Oncology at [facility] ug-induced nausea and vomiting; [facility] Tonsil cancer [address] [place] [phone] Social History Tobacco Use Types [...] encounter Progress Notes Jennifer Pineda RN - 04/01/2019 11:30 AM EST INFUSION THERAPY ADMINISTRATION NOTES DIAGNOSIS: Tonsillar cancer REASON FOR VISIT: Hydration and anti-emetic SUBJECTIVE: Delvin states that he is getting better slowly. IV ACCESS: PIV left hand REACTIONS (DESCRIPTION, TIME, INTERVENTION AND EFFECTIVENESS) none ASSESSMENT: Delvin was awake, alert and tolerated treatment well. PIV discontinued prior to dismissal. PLAN: Return to clinic as scheduled. documented in this encounter Plan of Treatment Upcoming Encounters Date Type Specialty Care Team Description 10/04/2021 Office Visit Dermatology Tg Velasco MD [facility] [address] BLANCHE DALAL-DERMAT [place], [place] [address] (Wo rk) documented as of this encounter Visit Diagnoses Diagnosis Drug-induced nausea and vomiting Nausea with vomiting Tonsil cancer Malignant neoplasm of tonsil documented in this encounter Administered Medications Inactive Administered Medications - up to 3 most recent administrations Medication Order MAR Action Action Date Dose Rate Site ondansetron (ZOFRAN) injection 8 mg Given 04/01/2019 11:14 AM EST 8 mg 8 mg, Intravenous, ONCE PRN, 1 dose, Starting on Mon04/01/19 at 1058, Until Mon04/01/19 at 1114, Nausea sodium chloride 0.9% infusion New Bag 04/01/2019 11:08 AM EST 1,000 mLs 500 mL/hr 1,000 mL (1 L), at 500 mL/hr, Intravenous, ONCE, 1 dose, On Mon04/01/19 at 1115 documented in this encounter Care Teams Drill Doctor Relationship Specialty Start Date End Date Gregg Garcia MD PCP - General General Internal Medicine 09/24/18 [address] [place] [address] documented as of this encounter
--- OUTSIDE RECORDS SUMMARY | 2021-09-13 17:58 | XMS_ITS | Encounter Summary ---
:1975 Author Organization [facility] [place] [address] Care Team Providers Name Role Phone Gregg Garcia MD Primary Care Provider Encounter Details Date Type Department Care Team Description 03/01/[facility] ONCOLOGY DEPT. [place], [place] [phone] Social History Tobacco Use Types Packs/Day Years [...] Sign Reading Time Taken Comments Blood Pressure 114/67 03/01/2019 9:16 AM EST Pulse 104 03/01/2019 9:16 AM EST Temperature 36.8 ??C (98.2 ??F) 03/01/2019 9:16 AM EST Respiratory Rate 16 03/01/2019 9:16 AM EST Oxygen Saturation 100% 03/01/2019 9:16 AM EST Inhaled Oxygen Concentration - - Weight 84.4 kg (186 lb) 03/01/2019 9:16 AM EST Height 188 cm (6' 2.02) 03/01/2019 9:16 AM EST Body Mass Index 23.87 03/01/2019 9:16 AM EST documented in this encounter Progress Notes Chris George MD - 03/01/2019 9:30 AM EST Hematology/Oncology Clinic [facility] Patient Active Problem List Diagnosis ??? Drug-induced nausea and vomiting ??? Tonsil cancer cT1 N2 M0 p16(+), L tonsil A. Presenting with L neck mass; trivial tobacco history; small L tonsil tumor, EUA 12/10/2018: non-ker SCCa B. Definitive radiation 01/16/2019; high dose cisplatin X 2, c/b grade 3 nausea and gr 2 ototoxcity;switch to weekly carbo+paclitaxel 02/25 ??? Neck mass Med Onc checkup. RT fraction 29 of 35 today; chemo switched this week to carbo/paclitaxel: [facility] ONCOLOGY (AMB) 01/16/2019 02/06/2019 Day, Cycle Day 1, Cycle 1 Day 1, Cycle 2 CARBOplatin (PARAPLATIN) IV CISplatin (PLATINOL) IV 100 mg/m2/dose = 224 mg 90 mg/m2/dose = 202 mg PACLitaxel (TAXOL) IV [facility] ONCOLOGY (AMB) 02/25/2019 Day, Cycle Day 1, Cycle 1 CARBOplatin (PARAPLATIN) IV 202 mg CISplatin (PLATINOL) IV PACLitaxel (TAXOL) IV 45 mg/m2/dose = 96 mg He is feeling overall better since we switched from cisplatin to carboplatin and paclitaxel. He tolerated his first dose of this earlier this week without significant nausea. No neuropathy except for positional bilateral ulnar paresthesias. Ototoxicity still present from prior chemotherapy, but perhaps a bit less ringing in the ears and aural distortion. He is still using multiple antiemetics but hisstomach is feeling much better now. Mucositis has been increasing, requiring occasional doses of oxycodone, mostly in the morning. He is getting good oral hydration, and keeping up with nutrition with soft solids, Ensure, protein milkshakes. Taste sensation is completely absent. He has a combination of xerostomia and copious phlegm which is bothersome; he is keeping up with frequent baking soda and salt rinses during the day. Bowels are functioning regularly. Energy is fair, KPS 80-90. He and his family had a good Lou holiday. Physical exam: He is in no acute distress, in quiet good spirits. Oral exam shows grade confluent mucositis across the soft palate and left tonsil, tonsil tumor is not visible. Tongue has a white coating most consistent with filiform overgrowth; I do not see evidenceof candidiasis. Neck exam shows grade 1 erythema, no skin breakdown. No palpable adenopathy. The chest is clear Cardiac exam is normal Abdomen is benign, no hepatosplenomegaly or masses. Bowel sounds quiet but present. Extremities show no clubbing cyanosis or edema Reflexes 1+ Cranial nerves grossly normal; hearing function is grossly normal and I do not have to speak up to make myself understood. Labs: From 02/28 at [facility], electrolytes normal, creatinine back down to 0.87, calcium and magnesium normal. White count 2.74 with ANC 2080, full lakelets a bit lower than baseline at 126. Hemoglobin a bit lower at 11.0. 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 He is tolerating this regimen as well as can be expected, with dose related mucositis and skin irritation. Carboplatin/paclitaxel has been much better tolerated than cisplatin. Ongoing ototoxicity. Grade 1 skin irritation, grade 2 mucositis and xerostomia. Plan: Continue same supportive care, oral nutrition, copious oral hydration and thrice weekly intravenous hydration. We will double check the radiation schedule; if his radiation extends into the week of 03/11/2019 we will give 1 more dose of chemotherapy, otherwise chemotherapy will be completed as of 03/04. We had a discussion again of the time course of recovery after completion of treatment. I have recalculated the carboplatin dose using the statistical upper limit of normal of 120 mL's perminute, as I believe his new lower creatinine value gives an erroneously high GFR estimate of 134 mL's per minute. Chris George MD, FACP procedures nurse Hematology/Oncology Section [facility]/[place] [address] Voice recognition software used for this note; please excuse scarf and anneal operator errors. I personally reviewed past medical, surgical, family medical histories, reviewed current medications, vital signs, labs, and performed full review of systems. These are documented below the narrative for clarity and succinctness. Outpatient Medications Marked as Taking for the 03/01/19 encounter (Office Visit) with Ze George MD Medication Sig Dispense Refill ??? emollient base (CREAM BASE TOP) Apply topically. Jeans Cream. Apply to area of radiation twice aday but no less than 2 hours before a treatment. ??? guaiFENesin (ROBITUSSIN) 20 mg/mL Liquid Take 200 mg by mouth 4 times daily as needed for Cough. ??? oxyCODONE (ROXICODONE) 5 mg/5 mL Solution Take 5-10 mLs by mouth every 4 hours as needed for Pain. 400 mL 0 ??? OLANZapine (ZYPREXA) 10 mg Tablet Take 1 tablet by mouth nightly. 30 tablet 0 ??? dexamethasone (DECADRON) 4 mg Tablet Take 1 tablet by mouth daily. Take for 3 days following each chemotherapy. 12 tablet 3 ??? ondansetron (ZOFRAN) 8 mg Tablet Take 1 tablet by mouth every 8 hours as needed for Nausea. 20 tablet 3 ??? LORazepam (ATIVAN) 1 mg Tablet Take 1 tablet by mouth every 6 hours as needed (nausea). 30 tablet 3 ??? cholecalciferol, Vitamin D3, 1,000 unit Tablet Take 1,000 Units by mouth daily. ??? atorvastatin (LIPITOR) 40 mg Tablet 0 ??? multivitamin (THERAGRAN) Tablet Take 1 tablet by mouth daily. ??? ubidecarenone (COENZYME Q10) 100 mg Tablet Take by mouth daily. Review of Systems: Review of systems is negative for other EVAPORATOR REPAIRER, bone, pulmonary, cardiac, GI, , extremity, neurologic, endocrine, skin, constitutional, emotional, or functional problems. Vitals Office Visit from 03/01/2019 in Hematology/Oncology at [facility] Weight 84.4 kg (186 lb) Height 188 cm (6' 2.02) BSA (Calculated - sq m) 2.1 sq meters BMI (Calculated) 23.87 Temp 36.8 ??C (98.2 ??F) Temp src Oral Heart Rate (!) 104 Heart Rate Source Right, NIBP Resp 16 BP 114/67 BP Location Right arm Patient Position Sitting SpO2 100 % Karnofsky Score 70 Body surface area is 2.1 meters squared. Wt Readings from Last 3 Encounters: 03/01/19 84.4 kg (186 lb) 02/26/19 84.4 kg (186 lb) 02/25/19 83.6 kg (184 lb 3.2 oz) No results found for this or any previous visit (from the past 72 hour(s)). ++++++++++++++++++++++++++++++++++++++++++++++++++++ documented in this encounter Miscellaneous Notes Addendum Note - Chris George MD - 03/01/2019 9:30 AM EST Addended by: CHRIS GEORGE on: 03/01/2019 11:06 AM Modules accepted: Orders documented in this encounter Plan of Treatment Upcoming Encounters Date Type Specialty Care Team Description 10/04/2021 Office Visit Dermatology Tg Velasco MD [facility] [address] DAL[facility]DERMAT [place], [place] [address] (Wo rk) documented as of this encounter Visit Diagnoses Diagnosis Tonsil cancer Malignant neoplasm of tonsil documented in this encounter Care Teams Test Analyst Relationship Specialty Start Date End Date Gregg Garcia MD PCP - General General Internal Medicine 09/24/18 [address] [place] [address] documented as of this encounter
--- OUTSIDE RECORDS SUMMARY | 2021-09-13 17:58 | XMS_ITS | Encounter Summary ---
:1975 Author Organization [facility] [place] [address] Care Team Providers Name Role Phone Gregg Garcia MD Primary Care Provider Reason for Visit Reason Comments Dehydration Encounter Details Date Type Department Care Team Description 02/18/2019 Infusion Hematology Oncology at [facility] ug-induced nausea and vomiting; [facility] Tonsil cancer [address] [place], [place] [phone] Social History Tobacco Use Types Packs/Day [...] Sign Reading Time Taken Comments Blood Pressure 110/64 02/18/2019 9:58 AM EST Pulse 67 02/18/2019 9:58 AM EST Temperature 36.8 ??C (98.2 ??F) 02/18/2019 9:58 AM EST Respiratory Rate 18 02/18/2019 9:58 AM EST Oxygen Saturation 100% 02/18/2019 9:58 AM EST Inhaled Oxygen Concentration - - Weight 85.4 kg (188 lb 3.2 oz) 02/18/2019 9:58 AM EST Height 188 cm (6' 2.02) 02/18/2019 9:58 AM EST Body Mass Index 24.15 02/18/2019 9:58 AM EST documented in this encounter Progress Notes Jose Dhillon, RN - 02/18/2019 10:00 AM EST INFUSION THERAPY ADMINISTRATION NOTES DIAGNOSIS: Tonsil CA REASON FOR VISIT: Hydration SUBJECTIVE Delvin offers no complaints. OBJECTIVE LAB DATA: N/A REACTIONS (DESCRIPTION, TIME, INTERVENTION AND EFFECTIVENESS)none ASSESSMENT Delvin was awake, alert and she tolerated treatment well. Delvin requested his hydration be done in 1 hour. Pt related no Nausea so didn't want zofran. PLAN Return to clinic per routine. documented in this encounter Plan of Treatment Upcoming Encounters Date Type Specialty Care Team Description 10/04/2021 Office Visit Dermatology Tg Velasco MD [facility] [address] BLANCHE DALAL-DERMAT [place], [place] [address] (Wo rk) documented as of this encounter Visit Diagnoses Diagnosis Drug-induced nausea and vomiting Nausea with vomiting Tonsil cancer Malignant neoplasm of tonsil documented in this encounter Administered Medications Inactive Administered Medications - up to 3 most recent administrations Medication Order MAR Action Action Date Dose Rate Site sodium chloride 0.9% New Bag 02/18/2019 10:14 AM 1,000 mLs 1000 m L/hr infusion EST 1,000 mL (1 L), at 500 mL/hr, Intravenous, ONCE, 1 dose, On 02/18/19 at 1015 documented in this encounter Care Teams Dean Of Men Relationship Specialty Start Date End Date Gregg Garcia MD PCP - General General Internal Medicine 09/24/18 [address] [place] [address] documented as of this encounter
--- OUTSIDE RECORDS SUMMARY | 2021-09-13 17:58 | XMS_ITS | Encounter Summary ---
:1975 Author Organization [facility] [place] [address] Care Team Providers Name Role Phone Gregg Garcia MD Primary Care Provider Reason for Visit Reason Comments IV Access Hydration and antiemetics Encounter Details Date Type Department Care Team Description 03/18/2019 Infusion Hematology Oncology at [facility] ug-induced nausea and vomiting; [facility] Tonsil cancer [address] [place] [phone] Social History Tobacco Use Types [...] Sign Reading Time Taken Comments Blood Pressure 108/59 03/18/2019 10:39 AM EST Pulse 93 03/18/2019 10:39 AM EST Temperature 37 ??C (98.6 ??F) 03/18/2019 10:39 AM EST Respiratory Rate 18 03/18/2019 10:39 AM EST Oxygen Saturation 98% 03/18/2019 10:39 AM EST Inhaled Oxygen Concentration - - Weight 76.4 kg (168 lb 6.4 oz) 03/18/2019 10:39 AM EST Height 188 cm (6' 2.02) 03/18/2019 10:39 AM EST Body Mass Index 21.61 03/18/2019 10:39 AM EST documented in this encounter Progress Notes Luma Ragsdale RN - 03/18/2019 10:00 AM EST INFUSION THERAPY ADMINISTRATION NOTES DIAGNOSIS: Tonsil CA REASON FOR VISIT: Hydration and antiemetics SUBJECTIVE Delvin states he has slight nausea, able to eat only liquids, tired, no appetite OBJECTIVE LAB DATA: N/A IV ACCESS: PIV REACTIONS (DESCRIPTION, TIME, INTERVENTION AND EFFECTIVENESS)none ASSESSMENT Delvin was awake, alert and he tolerated treatment well. PLAN Return to clinic per routine. documented in this encounter Plan of Treatment Upcoming Encounters Date Type Specialty Care Team Description 10/04/2021 Office Visit Dermatology Tg Velasco MD [facility] DR [address]HE DALAL-DERMAT [place], [place] [address] (Wo rk) documented as of this encounter Visit Diagnoses Diagnosis Drug-induced nausea and vomiting Nausea with vomiting Tonsil cancer Malignant neoplasm of tonsil documented in this encounter Administered Medications Inactive Administered Medications - up to 3 most recent administrations Medication Order MAR Action Action Date Dose Rate Site ondansetron (ZOFRAN) injection 8 mg Given 03/18/2019 11:02 AM EST 8 mg 8 mg, Intravenous, ONCE PRN, 1 dose, Starting on Mon03/18/19 at 1023, Until Mon03/18/19 at 1102, Nausea sodium chloride 0.9% infusion New Bag 03/18/2019 10:56 AM EST 1,000 mLs 500 mL/hr 1,000 mL (1 L), at 500 mL/hr, Intravenous, ONCE PRN, 1 dose, Starting on Mon03/18/19 at 1034, Until Mon03/18/19 at 1300 documented in this encounter Care Teams [employer] Relationship Specialty Start Date End Date Gregg Garcia MD PCP - General General Internal Medicine 09/24/18 [address] [place] [address] documented as of this encounter
--- OUTSIDE RECORDS SUMMARY | 2021-09-13 17:58 | XMS_ITS | Encounter Summary ---
:1975 Author Organization [facility] [place] [address] Care Team Providers Name Role Phone Gregg Garcia MD Primary Care Provider Reason for Visit Reason Comments Chemotherapy Cycle 1 Day 15 Paclitaxel/Ca rboplatin Treatment/Therapy Plan Authorization (Routine) - Closed Specialty Diagnoses / Procedures Referred By Contact Refer red To Contact Diagnoses Tonsil cancer Drug-induced nausea and vomiting Chris George MD [facility] Hem Onc Infusion Procedures TC PALONOSETRON HCL, 25MCG, INJECTION (ALOXI) TC APREPITANT, 1 MG, INJECTION TC PACLITAXEL, 1MG, INJ TC CARBOPLATIN, 50MG, INJECTION (PARAPLATIN) [facility] [address] [place] [address] [place] [phone] Fax: Referral ID Status Reason Start Date Expiration Date Visits Requ ested Visits Authorized [id number] Closed 02/15/2019 02/25/2020 8 8 Encounter Details Date Type Department Care Team Description 03/11/2019 Infusion Hematology Oncology at [facility] ug-induced nausea and vomiting; [facility] Tonsil cancer [address] [place] [phone] Social History Tobacco Use Types [...] Sign Reading Time Taken Comments Blood Pressure 96/80 03/11/2019 10:56 AM EST Pulse 94 03/11/2019 10:56 AM EST Temperature 37 ??C (98.6 ??F) 03/11/2019 10:56 AM EST Respiratory Rate 18 03/11/2019 10:56 AM EST Oxygen Saturation 99% 03/11/2019 10:56 AM EST Inhaled Oxygen Concentration - - Weight 80.3 kg (177 lb) 03/11/2019 10:56 AM EST Height 188 cm (6' 2.02) 03/11/2019 10:56 AM EST Body Mass Index 22.72 03/11/2019 10:56 AM EST documented in this encounter Progress Notes Jennifer Pineda RN - 03/11/2019 11:00 AM EST INFUSION THERAPY ADMINISTRATION NOTES DIAGNOSIS: Tonsil [place] CYCLE #:1 Day 15 REASON FOR VISIT: Carbo/Taxol SUBJECTIVE Delvin offers no complaints. Today is his last chemotherapy and radiation. OBJECTIVE LAB DATA: WBC 2.41, HGB 10.9, HCT 32.0, PLT 189, ANC 2.04, BUN 19, Cr 0.90 IV ACCESS: PIV right hand Pre administration: Chemotherapy orders independently verified for drug name, route, and dosage per patient's height, weight and BSA by Jennifer Pineda, [facility] onsite. REACTIONS (DESCRIPTION, TIME, INTERVENTION AND EFFECTIVENESS) none ASSESSMENT Delvin was awake, alert and tolerated treatment well. PLAN Return to clinic per routine. documented in this encounter Plan of Treatment Upcoming Encounters Date Type Specialty Care Team Description 10/04/2021 Office Visit Dermatology Tg Velasco MD [facility] [address] BLANCHE DALAL-DERMAT [place], [place] [address] (Wo rk) documented as of this encounter Visit Diagnoses Diagnosis Drug-induced nausea and vomiting Nausea with vomiting Tonsil cancer Malignant neoplasm of tonsil documented in this encounter Administered Medications Inactive Administered Medications - up to 3 most recent administrations Medication Order MAR Action Action Date Dose Rate Site aprepitant (CINVANTI) injection Given 03/11/2019 1:49 PM EST 130 mg Emul 130 mg 130 mg, Intravenous, ONCE, 1 dose, On Mon03/11/19 at 1130, Alternative administration of IV push over 2 minutes is a recommendation from the icer air conditioning., Routine CARBOplatin (PARAPLATIN) 218 mg New Bag 03/11/2019 3:59 PM EST 218 mg 543.6 mL/hr in dextrose 5% 271.8 mL chemo infusion 218 mg (rounded from 217.5 mg, Target AUC = 1.5), Intravenous, ONCE, 1 dose, On Mon03/11/19 at 1230, Administer over 30 Minutes, Hold Parameters: CARBOplatin, Call provider for serum creatinine less than (mg/dL): 0.3, Call provider for serum creatinine greater than (mg/dL): 1.5, External serum creatinine results used to calculate dose? Yes, Enter serum creatinine value (mg/dL): 0.87, Enter serum creatinine result date: 02/14/2019 dexamethasone (DECADRON) injection 10 mg Given 03/11/2019 1:57 PM EST 10 mg 10 mg, Intravenous, ONCE, 1 dose, On Mon03/11/19 at 1130, Administer 30 minutes prior to PACLitaxel diphenhydrAMINE (BENADRYL) injection 25 mg Given 03/11/2019 1:55 PM EST 25 mg 25 mg, Intravenous, ONCE, 1 dose, On Mon03/11/19 at 1130, Administer 30 minutes prior to PACLitaxel, Routine famotidine (PEPCID) injection 20 mg Given 03/11/2019 1:52 PM EST 20 mg 20 mg, Intravenous, ONCE, 1 dose, On Mon03/11/19 at 1130, Administer 30 minutes prior to PACLitaxel PACLitaxel (TAXOL) 96 mg in sodium New Bag 03/11/2019 2:51 PM EST 96 mg 266 mL/hr chloride 0.9% Non-PVC 266 mL chemo infusion 96 mg (rounded from 95.85 mg = 45 mg/m2/dose ? 2.13 m2 Treatment Plan BSA from Recorded weight), Intravenous, ONCE, 1 dose, On Mon03/11/19 at 1230, Administer over 60 Minutes, Warning Vesicant/Irritant Medication palonosetron (ALOXI) injection 0.25 mg Given 03/11/2019 1:50 PM EST 0.25 mg 0.25 mg, Intravenous, ONCE, 1 dose, On Mon03/11/19 at 1130, Administer over 30 seconds., Routine sodium chloride 0.9% infusion New Bag 03/11/2019 11:10 AM EST 1,000 mLs 1000 mL/hr 1,000 mL (1 L), at 1,000 mL/hr, Intravenous, ONCE, 1 dose, On Mon03/11/19 at 1130 documented in this encounter Care Teams Per Diem Physical Therapist Relationship Specialty Start Date End Date Gregg Garcia MD PCP - General General Internal Medicine 09/24/18 [address] [place] [address] documented as of this encounter
--- OUTSIDE RECORDS SUMMARY | 2021-09-13 17:58 | XMS_ITS | Encounter Summary ---
:1975 Author Organization [facility] [place] [address] Care Team Providers Name Role Phone Gregg Garcia MD Primary Care Provider Encounter Details Date Type Department Care Team Description 03/11/2019 Notes Only Radiation Oncology at Mihir Vences MD [address] RADIATION ONCOLOGY [place], [place] [phone] [place] [address] [phone] (Wo rk) Social History Tobacco Use Types [...] encounter Progress Notes Mihir Vences MD - 03/11/2019 10:15 AM EST Images from the original note were not included. Radiation Oncology Treatment Summary PATIENT NAME: Delvin Rosario DATE OF : 1975 DIAGNOSIS / TREATMENT OVERVIEW Delvin Rosario is a 43 y.o. 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 Definitive SMALL ORDER CUTTER completed 03/11/19. TREATMENT DETAILS Treatment Intent Curative Site Treated Oropharyngeal primary, involved nodes, elective jose eduardo basins Technique VMAT, SIB Adaptive Plan Required Y Concurrent Chemo Y ONC BCA CHEMO (AMB) 01/16/2019 02/06/2019 02/25/2019 Day, Cycle Day 1, Cycle 1 Day 1, Cycle 2 Day 1, Cycle 1 CARBOplatin (PARAPLATIN) IV 202 mg CISplatin (PLATINOL) IV 100 mg/m2/dose 90 mg/m2/dose PACLitaxeL (TAXOL) IV 45 mg/m2/dose ONC BCA CHEMO (AMB) 03/04/2019 03/11/2019 Day, Cycle Day 8, Cycle 1 Day 15, Cycle 1 CARBOplatin (PARAPLATIN) IV 218 mg 218 mg CISplatin (PLATINOL) IV PACLitaxeL (TAXOL) IV 45 mg/m2/dose 45 mg/m2/dose Clinical Trial No TECHNICAL DETAILS Total Dose: 70 Gy @ 2 Gy/fxn, 59.5 Gy @ 1.7 Gy/fxn, 56 Gy @ 1.6 Gy/fxn PLAN IMAGES CLINICAL COURSE Delvin Rosario had the following toxicities at the end of treatment (CTCAE v4.03): Site Grade Skin 2 Xerostomia 2 Pharyngeal Mucositis 2 Dysphagia 1 Hoarseness 0 Feeding Tube: N FOLLOW UP Per NCC protocol documented in this encounter Plan of Treatment Upcoming Encounters Date Type Specialty Care Team Description 10/04/2021 Office Visit Dermatology Tg Velasco MD [facility] DR BLANCHE DALAL-DERMAT [place], [place] [address] (Wo rk) documented as of this encounter Visit Diagnoses Not on filedocumented in this encounter Care Teams Shorts Sifter Relationship Specialty Start Date End Date Gregg Garcia MD PCP - General General Internal Medicine 09/24/18 [address] [place] [address] documented as of this encounter
--- OUTSIDE RECORDS SUMMARY | 2021-09-13 17:58 | XMS_ITS | Encounter Summary ---
:1975 Author Organization [facility] [place] [address] Care Team Providers Name Role Phone Gregg Garcia MD Primary Care Provider Encounter Details Date Type Department Care Team Description 03/11/2019 Telephone Radiation Oncology at Katy Ohara RN [address] [phone] Social History Tobacco Use [...] this encounter Miscellaneous Notes Telephone Encounter - Katy Ohara RN - 03/11/2019 1:23 PM EST Background: Patient reports that he was informed at [facility] in [place] that he needs aprior authorization for oxycontin. 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 He will need a new prescription for oxycontin sent to pharmacy. Telephone call to [facility] to confirm the above. Urgent PA request filed by phone for oxycontin. Reference number is: [id number] Determination expected within [address] Vences and nurse Huerta updated with this note. documented in this encounter Plan of Treatment Upcoming Encounters Date Type Specialty Care Team Description 10/04/2021 Office Visit Dermatology Tg Velasco MD [facility] [address] BLANCHE DALAL-DERMAT [place], [place] [address] (Wo rk) documented as of this encounter Visit Diagnoses Not on filedocumented in this encounter Care Teams Credentialer Relationship Specialty Start Date End Date Gregg Garcia MD PCP - General General Internal Medicine 09/24/18 [address] [place] [address] documented as of this encounter
--- OUTSIDE RECORDS SUMMARY | 2021-09-13 17:58 | XMS_ITS | Encounter Summary ---
:1975 Author Organization [facility] [place] [address] Care Team Providers Name Role Phone Gregg Garcia MD Primary Care Provider Reason for Visit Reason Comments IV Medication Hydration and antiemetics Encounter Details Date Type Department Care Team Description 03/08/2019 Infusion Hematology Oncology at [facility] ug-induced nausea and vomiting; [facility] Tonsil cancer [address] [place] [phone] Social History Tobacco Use Types [...] Sign Reading Time Taken Comments Blood Pressure 112/57 03/08/2019 8:40 AM EST Pulse 90 03/08/2019 8:40 AM EST Temperature 37.3 ??C (99.1 ??F) 03/08/2019 8:40 AM EST Respiratory Rate 20 03/08/2019 8:40 AM EST Oxygen Saturation 100% 03/08/2019 8:40 AM EST Inhaled Oxygen Concentration - - Weight - - Height - - Body Mass Index - - documented in this encounter Progress Notes Luma Ragsdale RN - 03/08/2019 8:00 AM EST INFUSION THERAPY ADMINISTRATION NOTES DIAGNOSIS: Tonsil CA REASON FOR VISIT: Hydration and antiemetics SUBJECTIVE Delvin states he has slight nausea, able to eat a little. Has appointment with Tammy prior to radiation. OBJECTIVE LAB DATA: N/A IV ACCESS: PIV REACTIONS (DESCRIPTION, TIME, INTERVENTION AND EFFECTIVENESS)none ASSESSMENT Delvin was awake, alert and he tolerated treatment well. PLAN Return to clinic per routine. documented in this encounter Plan of Treatment Upcoming Encounters Date Type Specialty Care Team Description 10/04/2021 Office Visit Dermatology Tg Velasco MD [facility] [address] BLANCHE DALAL-DERMAT [place], [place] [address] (Wo rk) documented as of this encounter Visit Diagnoses Diagnosis Drug-induced nausea and vomiting Nausea with vomiting Tonsil cancer Malignant neoplasm of tonsil documented in this encounter Administered Medications Inactive Administered Medications - up to 3 most recent administrations Medication Order MAR Action Action Date Dose Rate Site ondansetron (ZOFRAN) injection 8 mg Given 03/08/2019 8:30 AM EST 8 mg 8 mg, Intravenous, ONCE PRN, 1 dose, Starting on Mon03/08/19 at 0803, Until Mon03/08/19 at 0830, Nausea sodium chloride 0.9% infusion New Bag 03/08/2019 8:22 AM EST 1,000 mLs 500 mL/hr 1,000 mL (1 L), at 500 mL/hr, Intravenous, ONCE, 1 dose, On Mon03/08/19 at 0830 documented in this encounter Care Teams Steersman Relationship Specialty Start Date End Date Gregg Garcia MD PCP - General General Internal Medicine 09/24/18 [address] [place] [address] documented as of this encounter
--- OUTSIDE RECORDS SUMMARY | 2021-09-13 17:58 | XMS_ITS | Encounter Summary ---
:1975 Author Organization [facility] [place] [address] Care Team Providers Name Role Phone Gregg Garcia MD Primary Care Provider Encounter Details Date Type Department Care Team Description 04/08/2019 Office Visit Hematology/Oncology at Chris Fung MD Tonsil cancer [address] ONCOLOGY DEPT. [place] [phone] Social History Tobacco Use Types Packs/Day Years [...] documented as of this encounter Progress Notes Chris George MD - 04/08/2019 1:45 PM EST Hematology/Oncology Clinic [facility] Patient Active Problem List Diagnosis ??? Drug-induced [...] weekly carbo+paclitaxel 02/25/2019 ??? Neck mass Brandon is here for medical oncology checkup and ongoing intravenous hydration. He is now 4 weeks from completing chemoradiation. His throat feels very slightly better this week, with less pain; he is still needing some oxycodone but no longer using the fentanyl patch. He is rinsing his mouth regularly. His oral intake remains problematic but has improved; taste sensation has returned very slightly. His energy level is still poor but better than last week. Tinnitus is unchanged. We tried adding some dronabinol for appetite stimulation, but this did not have a beneficial effect,and in fact may have contributed to an episode of orthostatic hypotension. He stopped taking this after a few doses. Bowels are functioning fine. Physical exam: He still looks tired but is in better spirits, brighter and his voice is stronger than last week Oral exam shows near complete resolution of the mucositis along with soft palate. Tonsil tumor is nolonger visible. There is no evidence of intraoral infection. Neck exam is normal, and I cannot feel the adenopathy present at initial diagnosis. Skin in the radiation field has healed Lungs are clear Cardiac exam is normal Abdomen is benign without hepatosplenomegaly. Extremities are normal, no clubbing cyanosis or edema. Neurologic exam is normal. Cranial nerves normal. Reflexes 2+ No laboratory studies done today. Impression: P 16+ tonsil cancer presenting with a large neck mass, with physical exam suggesting clinical complete response. Slow recovery from the noxious effects of chemoradiation, but I believe he has finally turned the corner. Plan: We will continue intravenous hydration for support 3 times this week. Continue current pain regimen. Encourage his efforts at good oral intake, and made some suggestions about high caloric density foods such as mashed potatoes and gravy, puddings, ice cream, soft scrambled eggs, etc. Applauded his efforts at recovery so far, and reinforced the slow but steady nature of recovery after chemoradiation. He will be meeting with the cancer center dietitian later this week. Dr. Fuentes has put in a request for swallowing therapy evaluation. Follow-up next week, and we will decide on whether or not he needs further intravenous hydration support thereafter. Chris George MD, FACP pharmacology professor Hematology/Oncology Section [facility]/[address] [address] Voice recognition software used for this note; please excuse nibbler operator errors. I personally reviewed past medical, surgical, family medical histories, reviewed current medications, vital signs, labs, and performed full review of systems. These are documented below the narrative for clarity and succinctness. Outpatient Medications Marked as Taking for the 04/08/19 encounter (Office Visit) with Chris George MD Medication Sig Dispense Refill ??? polyethylene glycol (Miralax) 17 gram/dose Powder Take 17 g by mouth daily. ??? oxyCODONE (ROXICODONE) 10 mg Tablet 1-2 tabs every 4 hours as needed for pain 60 tablet 0 ??? emollient base (CREAM BASE TOP) Apply [...] ??? atorvastatin (LIPITOR) 40 mg Tablet 0 Review of Systems: Review of systems is negative for other BOILER HOUSE SUPERVISOR, bone, pulmonary, cardiac, GI, , extremity, neurologic, endocrine, skin, constitutional, emotional, or functional problems. Vitals Infusion from 04/05/2019 in Hematology Oncology at [facility] Weight 75.6 kg (166 lb 9.6 oz) Height 188 cm (6' 2.02) BSA (Calculated - sq m) 1.99 sq meters BMI (Calculated) 21.38 Temp 36.5 ??C (97.7 ??F) Temp src Oral Heart Rate 83 Heart Rate Source Right, NIBP Resp 16 BP 100/52 BP Location Right arm Patient Position Sitting SpO2 100 % Karnofsky Score 70 There is no height or weight on file to calculate BSA. Wt Readings from Last 3 Encounters: 04/08/19 75.6 kg (166 lb 9.6 oz) 04/05/19 75.6 kg (166 lb 9.6 oz) 04/03/19 76.7 kg (169 lb 3.2 oz) No results found for this or any previous visit (from the past 72 hour(s)). ++++++++++++++++++++++++++++++++++++++++++++++++++++ documented in this encounter Plan of Treatment Upcoming Encounters Date Type Specialty Care Team Description 10/04/2021 Office Visit Dermatology Tg Velasco MD [facility] DR BLANCHE DALAL-DERMAT [place], [place] [address] (Wo rk) documented as of this encounter Visit Diagnoses Diagnosis Tonsil cancer Malignant neoplasm of tonsil documented in this encounter Care Teams Color Matcher Relationship Specialty Start Date End Date Gregg Garcia MD PCP - General General Internal Medicine 09/24/18 [address] [place] [address] documented as of this encounter
--- OUTSIDE RECORDS SUMMARY | 2021-09-13 17:58 | XMS_ITS | Encounter Summary ---
:1975 Author Organization [facility] [place] [address] Care Team Providers Name Role Phone Gregg Garcia MD Primary Care Provider Reason for Visit Reason Comments Other Hydration Encounter Details Date Type Department Care Team Description 04/08/2019 Infusion Hematology Oncology at [facility] ug-induced nausea and vomiting; [facility] Tonsil cancer [address] [place], [place] [phone] Social History Tobacco Use Types Packs/Day [...] Sign Reading Time Taken Comments Blood Pressure 98/56 04/08/2019 2:13 PM EST Pulse 81 04/08/2019 2:13 PM EST Temperature 36.6 ??C (97.9 ??F) 04/08/2019 2:13 PM EST Respiratory Rate 20 04/08/2019 2:13 PM EST Oxygen Saturation - - Inhaled Oxygen Concentration - - Weight 75.6 kg (166 lb 9.6 oz) 04/08/2019 2:13 PM EST Height 188 cm (6' 2.02) 04/08/2019 2:13 PM EST Body Mass Index 21.38 04/08/2019 2:13 PM EST documented in this encounter Progress Notes Licha Mcnally RN - 04/08/2019 2:30 PM EST INFUSION THERAPY ADMINISTRATION NOTES DIAGNOSIS: Tonsillar cancer REASON FOR VISIT: Hydration and anti-emetic SUBJECTIVE: Delvin states that he is getting better slowly. IV ACCESS: PIV REACTIONS (DESCRIPTION, TIME, INTERVENTION AND EFFECTIVENESS) none ASSESSMENT: Delvin was awake, alert and tolerated treatment well. PIV discontinued prior to dismissal. PLAN: Return to clinic as scheduled. documented in this encounter Plan of Treatment Upcoming Encounters Date Type Specialty Care Team Description 10/04/2021 Office Visit Dermatology Tg Velasco MD [facility] ER [address] BLANCHE DALAL[place]MAT [place] [address] (Wo rk) documented as of this encounter Visit Diagnoses Diagnosis Drug-induced nausea and vomiting Nausea with vomiting Tonsil cancer Malignant neoplasm of tonsil documented in this encounter Administered Medications Inactive Administered Medications - up to 3 most recent administrations Medication Order MAR Action Action Date Dose Rate Site ondansetron (ZOFRAN) injection 8 mg Given 04/08/2019 2:36 PM EST 8 mg 8 mg, Intravenous, ONCE PRN, 1 dose, Starting on Mon04/08/19 at 0819, Until Mon04/08/19 at 1436, Nausea sodium chloride 0.9% infusion New Bag 04/08/2019 2:35 PM EST 1,000 mLs 500 mL/hr 1,000 mL (1 L), at 500 mL/hr, Intravenous, ONCE, 1 dose, On Mon04/08/19 at 1430 documented in this encounter Care Teams Aerobics Teacher Relationship Specialty Start Date End Date Gregg Garcia MD PCP - General General Internal Medicine 09/24/18 [address] [place] [address] documented as of this encounter
--- OUTSIDE RECORDS SUMMARY | 2021-09-13 17:58 | XMS_ITS | Encounter Summary ---
:1975 Author Organization [facility] [place] [address] Care Team Providers Name Role Phone Gregg Garcia MD Primary Care Provider Reason for Visit Reason Comments IV Medication hydration Encounter Details Date Type Department Care Team Description 02/28/2019 Infusion Hematology Oncology at [facility] ug-induced nausea and vomiting; [facility] Tonsil cancer [address] [place] [address] [phone] Social History Tobacco Use Types Packs/Day [...] Sign Reading Time Taken Comments Blood Pressure 119/61 02/28/2019 12:21 PM EST Pulse 73 02/28/2019 12:21 PM EST Temperature 36.8 ??C (98.2 ??F) 02/28/2019 12:21 PM EST Respiratory Rate 18 02/28/2019 12:21 PM EST Oxygen Saturation 100% 02/28/2019 12:21 PM EST Inhaled Oxygen Concentration - - Weight - - Height - - Body Mass Index - - documented in this encounter Progress Notes Mary Sun RN - 02/28/2019 1:00 PM EST INFUSION THERAPY ADMINISTRATION NOTES DIAGNOSIS: Head & Neck CA REASON FOR VISIT: Hydration SUBJECTIVE Mr. Rosario is here for his hydration. He had XRT prior to coming to the infusion room. He reports that he is doing well overall. Nausea is well managed with at home medications and so he declines ondansetron in clinic today. Would like his IV hydration over 1.5 hours today. He otherwise offers no complaints. OBJECTIVE REACTIONS (DESCRIPTION, TIME, INTERVENTION AND EFFECTIVENESS) none ASSESSMENT Mr. Rosario was awake, alert and he tolerated treatment well. PLAN Return to clinic on Monday per patient. Patient was reminded to call in the interim with any questions/concerns. documented in this encounter Plan of Treatment Upcoming Encounters Date Type Specialty Care Team Description 10/04/2021 Office Visit Dermatology Tg Velasco MD [facility] [address] BLANCHE DALAL-DERMAT [place], [place] [address] (Wo rk) documented as of this encounter Visit Diagnoses Diagnosis Drug-induced nausea and vomiting Nausea with vomiting Tonsil cancer Malignant neoplasm of tonsil documented in this encounter Administered Medications Inactive Administered Medications - up to 3 most recent administrations Medication Order MAR Action Action Date Dose Rate Site sodium chloride 0.9% New Bag 02/28/2019 12:37 PM 1,000 mLs 667 mL /hr infusion EST 1,000 mL (1 L), at 500 mL/hr, Intravenous, ONCE, 1 dose, On [place] 02/28/19 at 1245 documented in this encounter Care Teams Home Child Care Provider Relationship Specialty Start Date End Date Gregg Garcia MD PCP - General General Internal Medicine 09/24/18 [address] [place] [address] documented as of this encounter
--- OUTSIDE RECORDS SUMMARY | 2021-09-13 17:58 | XMS_ITS | Encounter Summary ---
:1975 Author Organization [facility] [address] Care Team Providers Name Role Phone Gregg Garcia MD Primary Care Provider Encounter Details Date Type Department Care Team Description 03/08/2019 Refill Radiation Oncology at Swathi Selby RN Tonsillar cancer; [place] [phone] Social History Tobacco Use Types Packs/Day [...] Telephone Encounter - Swathi Selby RN - 03/08/2019 3:55 PM EST Radiation Oncology Nurse Telephone Note [place], [place] Sergey Rossi sent to [facility] Rad Onc Nurse Good Afternoon, Delvin just called and said that he talked to Dr. Man yesterday who recommended that it might be time to switch from a short acting to a long acting medication. He said that with the weekend he is alittle worried about the amount he has left. He said that if he were to switch it would not necessarily have to be in liquid form. Please give him a call back. Thanks, Sergey Telephone call to pt. He confirms above information. He states that Dr Man has authorized him to take more of the liquid oxycodone until a long acting regimen is started. He is currently taking 10- 20 mls with better relief, but he only has 100 mls left and will run out over the weekend. Dr Vences called. He ordered OxyContin 20 mg BiD Q 12 hours and oxycodone 10 mg 1 -2 tabs Q 4 hoursprn pain. Called patient back with this information. He repeated it back to me correctly. He was also informedthat he may need to change his bowel regimen to avoid constipation. For Weekend/Holiday coverage while our clinic is closed, the patient was instructed to call [facility] at [phone] and ask for the salesperson fashion accessories radiation oncologist. Patient verbalized understanding of these instructions. Plan: He completes radiation treatment Monday03/11/19 documented in this encounter Plan of Treatment Upcoming Encounters Date Type Specialty Care Team Description 10/04/2021 Office Visit Dermatology Tg Velasco MD [facility] [address] BLANCHE DALAL-DERMAT [place], [place] [address] (Wo rk) documented as of this encounter Visit Diagnoses Diagnosis Tonsillar cancer Malignant neoplasm of tonsil Odynophagia Dysphagia, unspecified documented in this encounter Care Teams Manager Surgery Relationship Specialty Start Date End Date Gregg Garcia MD PCP - General General Internal Medicine 09/24/[address] [facility] 1 [place] [address] documented as of this encounter
--- OUTSIDE RECORDS SUMMARY | 2021-09-13 17:58 | XMS_ITS | Encounter Summary ---
:1975 Author Organization [facility] [address] Care Team Providers Name Role Phone Gregg Garcia MD Primary Care Provider Reason for Referral Speech Therapy (MORENITA) - Closed Specialty Diagnoses / Procedures Referred By Contact Refer red To Contact Speech Pathology / Diagnoses Tonsillar cancer Mihir Vences [facility] [employer] Servicer Rehab Speech Therapy MD [facility] [address] [place] RADIATION ONCOLOGY [phone] [place] [address] Referral ID Status Reason Start Date Expiration Date Visits V isits Requested Authorized [id number] Closed Evaluate and 04/04/2019 04/03/2020 1 1 Treat hysical Therapy (Routine) - Specialty Diagnoses / Procedures Referred By Contact Refer red To Contact Physical Therapy Diagnoses Tonsillar cancer Mihir Vences MD [facility] [place] [address] Referral ID Status Reason Start Date Expiration Date Visits V isits Requested Authorized [id number] Evaluate and 04/04/2019 10/01/2019 12 12 Treat Encounter Details Date Type Department Care Team Description 04/03/2019 Office Visit Radiation Oncology at Mihir Martin Tonsillar cancer Robbie SARMIENTO [address] [place] [phone] RADIATION ONCOLOGY [phone] [place], [place] [address] (Wo rk) Social History Tobacco Use Types [...] encounter Progress Notes Mihir Vences MD - 04/03/2019 1:30 PM EST FOLLOW UP VISIT NOTE Delvin Rosario is a 43 y.o. 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 Definitive SPECIAL PROGRAMS DIRECTOR completed 03/11/19. Changes in medical condition Pain: pain localized at a 3/10, worse with yawning. Not using any pain medications. Secretions/Dryness: slight improvement in dysgeusia, significant xerostomia (BSSW, water, mucinex). Swallowing Function: coughing / choking / gagging present. Thick secretions Nutrition: Eating carnation shakes (1-2 / day). Limited by taste, thickness, gagging. Skin: no issues GI: --Constipation/Diarrhea: no constipation --N/V: no nausea Hearing: stable increased tinnitus Nutrition Assessment: Weight : 94.5 kg initial Change: 76.4 -> 76.7 Objective: There were no vitals taken for this visit. SKIN: no skin erythema, MUCOSA: patchy mucositis posterior OP, improved, no thrush Assessment: High level toxicity, requiring IV hydration, ongoing weight loss due to difficulty with oral intake.We discussed an NG tube as I suspect that some of his issues relate to inability to heal secondary to malnutrition. I would also like him to see TRIMMING CUTTER MORENITA to evaluate his swallowing, and PT for lymphedema therapy. CTCAE TOXICITY GRADES (see below for hernandez): Site Grade Skin 2 Xerostomia 2 Pharyngeal Mucositis 2 Dysphagia 1 Hoarseness 0 Plan: ?? Pain control: ?? OTC medications prn ?? Skin: ?? Jeans cream prn ?? Mucositis: ?? Pain control: see above ?? Oral hygiene consisting of baking soda/salt rinse ?? Mucinex ?? Alimentation: tub washer following ?? Weight decreased slightly, all by mouth at this time. No G tube. ?? IV hydration several times/wk ?? N/V: Lorazepam, Zofran, olanzapine prn ?? PT / TRIMMING CUTTER re-evaluation CTCAE v4.03 scales for reference Skin 0 [...] [facility] BL[facility] DAL[facility]DERMAT [place], [place] [address] (Wo rk) Scheduled Referrals Name Type Priority Associated Diagnoses Order S chedule Referral to Outpatient Referral Routine Tonsillar cancer Orde red: Physical Therapy 04/04/2019 Referral to Speech Outpatient Referral Routine Tonsillar cance r Ordered: Therapy 04/04/2019 documented as of this encounter Visit Diagnoses Diagnosis Tonsillar cancer Malignant neoplasm of tonsil documented in this encounter Care Teams Behavioral Intervention Specialist Relationship Specialty Start Date End Date Gregg Garcia MD PCP - General General Internal Medicine 09/24/18 [address] [address] [place] [address] documented as of this encounter
--- OUTSIDE RECORDS SUMMARY | 2021-09-13 17:58 | XMS_ITS | Encounter Summary ---
:1975 Author Organization [facility] [place] [address] Care Team Providers Name Role Phone Gregg Garcia MD Primary Care Provider Reason for Visit Reason Comments Dehydration Encounter Details Date Type Department Care Team Description 03/22/2019 Infusion Hematology Oncology at [facility] ug-induced nausea and vomiting; [facility] Tonsil cancer [address] [place], [place] [phone] Social History Tobacco Use Types Packs/Day [...] Sign Reading Time Taken Comments Blood Pressure 97/55 03/22/2019 8:21 AM EST Pulse 97 03/22/2019 8:21 AM EST Temperature 37.1 ??C (98.8 ??F) 03/22/2019 8:21 AM EST Respiratory Rate 18 03/22/2019 8:21 AM EST Oxygen Saturation 100% 03/22/2019 8:21 AM EST Inhaled Oxygen Concentration - - Weight 77.7 kg (171 lb 3.2 oz) 03/22/2019 8:21 AM EST Height - - Body Mass Index 21.97 03/18/2019 10:39 AM EST documented in this encounter Progress Notes Jose Dhillon, RN - 03/22/2019 8:30 AM EST INFUSION THERAPY ADMINISTRATION NOTES DIAGNOSIS: [...] Tg Velasco MD [facility] [address] BLANCHE DALAL[facility]DERMAT [place], [place] [address] (Wo rk) documented as of this encounter Visit Diagnoses Diagnosis Drug-induced nausea and vomiting Nausea with vomiting Tonsil cancer Malignant neoplasm of tonsil documented in this encounter Administered Medications Inactive Administered Medications - up to 3 most recent administrations Medication Order MAR Action Action Date Dose Rate Site sodium chloride 0.9% New Bag 03/22/2019 8:40 AM EST 1,000 mLs 500 mL/hr infusion 1,000 mL (1 L), at 500 mL/hr, Intravenous, ONCE, 1 dose, On Mon03/22/19 at 0845 documented in this encounter Care Teams Dock Coordinator Relationship Specialty Start Date End Date Gregg Garcia MD PCP - General General Internal Medicine 09/24/18 [address] [place] [address] documented as of this encounter
--- OUTSIDE RECORDS SUMMARY | 2021-09-13 17:58 | XMS_ITS | Encounter Summary ---
:1975 Author Organization [facility] Address [place] [id number] Care Team Providers Name Role Phone Gregg Garcia MD Primary Care Provider Reason for Visit Reason Comments On Treatment Visit Encounter Details Date Type Department Care Team Description 02/26/2019 Office Visit Radiation Oncology at [facility], Carol Benson MD Tonsillar cancer [address] RADIATION ONCOL [place] [address] [place] [phone] (Wo rk) Social History Tobacco Use Types [...] Sign Reading Time Taken Comments Blood Pressure 102/66 02/26/2019 2:09 PM EST Pulse 72 02/26/2019 2:09 PM EST Temperature 36.7 ??C (98.1 ??F) 02/26/2019 2:09 PM EST Respiratory Rate - - Oxygen Saturation 96% 02/26/2019 2:09 PM EST Inhaled Oxygen Concentration - - Weight 84.4 kg (186 lb) 02/26/2019 2:09 PM EST with kristine es Height - - Body Mass Index 23.87 02/25/2019 9:03 AM EST documented in this encounter Progress Notes Carol Lo MD - 02/26/2019 1:00 PM EST ON TREATMENT VISIT NOTE Delvin Rosario is a 43 y.o. 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 Definitive WEFT STRAIGHTENER. Current treatment dose: 56 Gy in 28 fractions. Anticipated total dose: 70 Gy in 35 fractions. Concomitant Therapy: Y ONC BCA CHEMO (AMB) 01/16/2019 02/06/2019 Day, Cycle Day 1, Cycle 1 Day 1, Cycle 2 CISplatin (PLATINOL) IV 100 mg/m2/dose 90 mg/m2/dose Evaluation of Port Verification Films: PORT films have been reviewed, please see RUBI for details. Changes in medical condition Pain: controlled by oxycodone. Secretions/Dryness: significant dysgeusia, moderate xerostomia (BSSW which he is using 5 X/d, water,Mucinex). Swallowing Function: slight improvement in swallowing Nutrition: ~ 4 ensure per day. No G tube. Aiming to 2 - 3K calories per day. Says now receiving IV hydration 3 times/wk per Dr. George. Skin: no issues GI: --Constipation/Diarrhea: using stool softeners, no issues. --N/V: improved nausea. Ondansetron, Lorazepam, Olanzapine Hearing: increased tinnitus Nutrition Assessment: Weight : 94.5 kg initial Change: 84.6 -> 84.4 Objective: BP 102/66 (Patient Position: Sitting) Pulse 72 Temp 36.7 ??C (98.1 ??F) (Temporal) Wt 84.4 kg (186 lb) Comment: with shoes SpO2 96% BMI 23.87 kg/m?? SKIN: no skin erythema MUCOSA: patchy mucositis posterior OP Assessment: Ongoing weight loss, not interested in G tube. CTCAE TOXICITY GRADES (see below for hernandez): Site Grade Skin 0 Xerostomia 2 Pharyngeal Mucositis 2 Dysphagia 0 Hoarseness 0 Plan: ?? Continue RT per prescription ?? Pain control: ?? OTC medications prn ?? Oxycodone ?? Skin: Jeans cream prn ?? Mucositis: ?? Pain control: see above ?? Oral hygiene consisting of baking soda/salt rinse ?? BMX ?? Mucinex ?? Alimentation: telephone supervisor following ?? Weight decreased slightly, all by mouth at this time. No G tube. ?? IV hydration several times/wk ?? N/V: Lorazepam, Zofran, olanzapine CTCAE v4.03 scales for reference Skin 0 [...] Dermatology Tg Velasco MD [facility] [address] BLANCHE DALAL-DERMAT [place], [place] [address] (Wo rk) documented as of this encounter Visit Diagnoses Diagnosis Tonsillar cancer Malignant neoplasm of tonsil documented in this encounter Care Teams Medical Insurance Biller Relationship Specialty Start Date End Date Gregg Garcia MD PCP - General General Internal Medicine 09/24/18 [address] [facility] 1 [place] [address] documented as of this encounter
--- OUTSIDE RECORDS SUMMARY | 2021-09-13 17:58 | XMS_ITS | Encounter Summary ---
:1975 Author Organization [facility] [place] [address] Care Team Providers Name Role Phone Gregg Garcia MD Primary Care Provider Reason for Visit Reason Comments Other Hydration Encounter Details Date Type Department Care Team Description 04/10/2019 Infusion Hematology Oncology at [facility] ug-induced nausea and vomiting; [facility] Tonsil cancer [address] [place] [address] [phone] Social History Tobacco Use Types Packs/Day [...] Sign Reading Time Taken Comments Blood Pressure 105/59 04/10/2019 8:38 AM EST Pulse 77 04/10/2019 8:38 AM EST Temperature 36.9 ??C (98.4 ??F) 04/10/2019 8:38 AM EST Respiratory Rate 18 04/10/2019 8:38 AM EST Oxygen Saturation 100% 04/10/2019 8:38 AM EST Inhaled Oxygen Concentration - - Weight 76.2 kg (168 lb) 04/10/2019 8:38 AM EST Height 188 cm (6' 2.02) 04/10/2019 8:38 AM EST Body Mass Index 21.56 04/10/2019 8:38 AM EST documented in this encounter Progress Notes Licha Mcnally RN - 04/10/2019 8:30 AM EST INFUSION THERAPY ADMINISTRATION NOTES DIAGNOSIS: Tonsillar cancer REASON FOR VISIT: Hydration and anti-emetic SUBJECTIVE: Delvin states that he feels better than he did 2 days ago. IV ACCESS: PIV REACTIONS (DESCRIPTION, TIME, INTERVENTION AND EFFECTIVENESS) none ASSESSMENT: Delvin was awake, alert and tolerated treatment well. PIV discontinued prior to dismissal. PLAN: Return to clinic as scheduled. documented in this encounter Plan of Treatment Upcoming Encounters Date Type Specialty Care Team Description 10/04/2021 Office Visit Dermatology Tg Velasco MD [facility] [address] BLANCHE DALAL[facility]DERMAT [place], [place] [address] (Wo rk) documented as of this encounter Visit Diagnoses Diagnosis Drug-induced nausea and vomiting Nausea with vomiting Tonsil cancer Malignant neoplasm of tonsil documented in this encounter Administered Medications Inactive Administered Medications - up to 3 most recent administrations Medication Order MAR Action Action Date Dose Rate Site ondansetron (ZOFRAN) injection 8 mg Given 04/10/2019 8:57 AM EST 8 mg 8 mg, Intravenous, ONCE PRN, 1 dose, Starting on Mon04/10/19 at 0838, Until Mon04/10/19 at 0857, Nausea sodium chloride 0.9% infusion New Bag 04/10/2019 8:56 AM EST 1,000 mLs 500 mL/hr 1,000 mL (1 L), at 500 mL/hr, Intravenous, ONCE, 1 dose, On Mon04/10/19 at 0900 documented in this encounter Care Teams Silk Printer Relationship Specialty Start Date End Date Gregg Garcia MD PCP - General General Internal Medicine 09/24/1812/03/ [address] [place] [address] documented as of this encounter
--- OUTSIDE RECORDS SUMMARY | 2021-09-13 17:58 | XMS_ITS | Encounter Summary ---
:1975 Author Organization [facility] [place] [address] Care Team Providers Name Role Phone Gregg Garcia MD Primary Care Provider Encounter Details Date Type Department Care Team Description 03/11/2019 Notes Only Radiation Oncology at Katy Ohara RN [place] [phone] Social History Tobacco Use Types Packs/Day [...] Pressure - - Pulse - - Temperature 36.8 ??C (98.3 ??F) 03/11/2019 5:00 PM EST Respiratory Rate - - Oxygen Saturation - - Inhaled Oxygen Concentration - - Weight - - Height - - Body Mass Index - - documented in this encounter Progress Notes Katy Ohara RN - 03/11/2019 6:09 PM EST Radiation Oncology Nursing Completion of Treatment Note Pt completed 35 Fxs totaling 7000cGY to head and neck for squamous cell carcinoma of the left tonsil. . Side effects/problems noted today: Dysgeusia, xerostomia, dermatitis with some peeling of skin noted, mucositis. Pain bar management helped with long acting narcotic. He wonders if ok if jeans cream gets on area of peeling. Teaching and discharge instructions reviewed: Provided Him with additional Jeans Cream. Instructed that silvadene has antibacterial property which can help prevent infection in peeling areas whereas Jeans Cream does not, thus advised to ensure silvadene is used on all peeling skin. Did let him know that if Jeans Cream comes in contact with peeling skin that no harm will be done. Please see my telephone encounters from today. Patient updated on PA process with oxycontin prescription. Expected follow up/referrals: Dr. Vences 03/13/19. Patient has our contact numbers Patient/family response to instructions: Patient verbalized understanding of these instructions. documented in this encounter Plan of Treatment Upcoming Encounters Date Type Specialty Care Team Description 10/04/2021 Office Visit Dermatology Tg Velasco MD [facility] [address] BLANCHE DALAL-DERMAT [place], [place] [address] (Wo rk) documented as of this encounter Visit Diagnoses Not on filedocumented in this encounter Care Teams Wood Caulker Relationship Specialty Start Date End Date Gregg Garcia MD PCP - General General Internal Medicine 09/24/[address] [facility] [place] [address] documented as of this encounter
--- OUTSIDE RECORDS SUMMARY | 2021-09-13 17:58 | XMS_ITS | Encounter Summary ---
:1975 Author Organization [place] [address] Care Team Providers Name Role Phone Gregg Garcia MD Primary Care Provider Encounter Details Date Type Department Care Team Description 03/11/2019 Orders Only Hematology and Oncology Viviana George MD Tonsillar cancer; at [facility] [address] [place] [address] [place] [address] [phone] (Wo rk) Social History Tobacco Use Types [...] encounter Progress Notes Chris George MD - 03/11/2019 2:[address] [facility] note Insurance company requires opioid consent prior to authorizing oxycontin prescription. We reviewed risks, benefits, side effects, and he expressed understanding and agreement with conditions of opioid use for his cancer-related pain. New oxycontin 20 mg prescription (1 tab BID, #60) sent electronically to Leah Salguero. Chris George MD, FACP Hematology/Oncology Section, [facility] tax senior associate, [facility] of [facility] at [facility] [phone] documented in this encounter Plan of Treatment Upcoming Encounters Date Type Specialty Care Team Description 10/04/2021 Office Visit Dermatology Tg Velasco MD [facility] [address] BLANCHE DALAL-DERMAT [place], [place] [address] (Wo rk) documented as of this encounter Visit Diagnoses Diagnosis Tonsillar cancer Malignant neoplasm of tonsil Odynophagia Dysphagia, unspecified documented in this encounter Care Teams Printing Sales Representative Relationship Specialty Start Date End Date Gregg Garcia MD PCP - General General Internal Medicine 09/24/18 [address] [place] [address] documented as of this encounter
--- OUTSIDE RECORDS SUMMARY | 2021-09-13 17:58 | XMS_ITS | Encounter Summary ---
:1975 Author Organization [facility] [place] [address] Care Team Providers Name Role Phone Gregg Gacria MD Primary Care Provider Encounter Details Date Type Department Care Team Description 03/18/2019 Notes Only Hematology/Oncology at Avani Hill MSW [facility] OFFICE OF CARE [address] [place], [place] [address] [phone] Social History Tobacco Use Types Packs/Day Years [...] documented as of this encounter Progress Notes Avani Hill MSW - 03/18/2019 10:46 AM EST Follow up with pt during hydration visit. Reports he is done with treatment but coming in for hydration as needed. He is very tired but doing the best he can. He indicated his family is well and they had good holidays. Offered support. Will continue to follow for support and resources. documented in this encounter Plan of Treatment Upcoming Encounters Date Type Specialty Care Team Description 10/04/2021 Office Visit Dermatology Tg Velasco MD [facility] ER [address] BLANCHE DALAL-DERMAT [place], [place] [address] (Wo rk) documented as of this encounter Visit Diagnoses Not on filedocumented in this encounter Care Teams Die Caster Relationship Specialty Start Date End Date Gregg Garcia MD PCP - General General Internal Medicine 09/24/[address] [place] [address] documented as of this encounter
--- OUTSIDE RECORDS SUMMARY | 2021-09-13 17:58 | XMS_ITS | Encounter Summary ---
:1975 Author Organization [facility] [place] [address] Care Team Providers Name Role Phone Gregg Garcia MD Primary Care Provider Encounter Details Date Type Department Care Team Description 02/18/2019 Notes Only Hematology/Oncology at Avani [place] MAKEUP ARTIST [facility] OFFICE OF CARE [address] [place], [place] [phone] Social History Tobacco Use Types Packs/Day Years [...] encounter Progress Notes Avani Hill MSW - 02/18/2019 10:56 AM EST Follow up with pt during infusion today. Pt reports he is not feeling great but doing the best he can. He is managing day to at home and at work with others picking up the slack. Pt reports his is holding up. Their young children know that dad does not feel well. He will have more of a conversation with them if his hair falls out with the new chemo he will be on. Offered support. Pt did not identify any new needs at this time. Reminded pt of MAKEUP ARTIST availability. Will continue to follow for support and resources. documented in this encounter Plan of Treatment Upcoming Encounters Date Type Specialty Care Team Description 10/04/2021 Office Visit Dermatology Tg Velasco MD [facility] ER [address] BLANCHE DALAL-DERMAT [place], [place] [address] (Wo rk) documented as of this encounter Visit Diagnoses Not on filedocumented in this encounter Care Teams Pilot Plant Research Technician Relationship Specialty Start Date End Date Gregg Garcia MD PCP - General General Internal Medicine 09/24/[address] [place] [address] documented as of this encounter
--- OUTSIDE RECORDS SUMMARY | 2021-09-13 17:58 | XMS_ITS | Encounter Summary ---
:1975 Author Organization [facility] [address] Care Team Providers Name Role Phone Gregg Garcia MD Primary Care Provider Encounter Details Date Type Department Care Team Description 03/07/2019 Office Visit Radiation Oncology at [facility] Bowers C ontact dermatitis due to radiation; [facility] Tonsillar cancer [address] [facility] [place] RADIATION ONCOL OGY [id number] [place], [place] [phone] (Wo rk) Social History Tobacco Use Types [...] Sign Reading Time Taken Comments Blood Pressure 115/68 03/07/2019 12:00 PM EST Pulse 99 03/07/2019 12:00 PM EST Temperature 37 ??C (98.6 ??F) 03/07/2019 12:00 PM EST Respiratory Rate 16 03/07/2019 12:00 PM EST Oxygen Saturation 99% 03/07/2019 12:00 PM EST Inhaled Oxygen Concentration - - Weight 81.7 kg (180 lb 3.2 oz) 03/07/2019 12:00 PM EST Height - - Body Mass Index 23.13 03/04/2019 9:07 AM EST documented in this encounter Progress Notes Bertrand Bowers MD - 03/07/2019 1:00 PM EST ON TREATMENT VISIT NOTE Delvin Rosario is a 43 y.o. 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 Current treatment dose: 66 Gy in 33 fractions. Anticipated total dose: 70 Gy in 35 fractions. Concomitant Therapy: Y ONC BCA CHEMO (AMB) 01/16/2019 02/06/2019 Day, Cycle Day 1, Cycle 1 Day 1, Cycle 2 CISplatin (PLATINOL) IV 100 mg/m2/dose 90 mg/m2/dose Evaluation of Port Verification Films: PORT films have been reviewed, please see ARIA for details. Changes in medical condition Gen: Overall feels fair. Continues working (mostly from home at this point). Pain: pharyngeal pain controlled by oxycodone 5mg, most days takes once daily but sometimes q4h prn Secretions/Dryness: ongoing dysgeusia, moderate xerostomia (BSSW which he is using 5 X/d, water, Mucinex). Swallowing Function: slight improvement in swallowing Nutrition: ~ 2 cans ensure per day and home-made shakes daily. Ongoing IV hydration 3 times/wk per Dr. George. Skin: dermatitis is increasing now with dry desqamation, still using Alfred's cream GI: --Constipation/Diarrhea: using stool softeners, no issues. --N/V: vomited 2 days ago, taking Ondansetron, Lorazepam, Olanzapine Hearing: increased tinnitus Nutrition Assessment: Weight : 94.5 kg initial Change: 81.7 kg today Objective: BP 115/68 Pulse 99 Temp 37 ??C (98.6 ??F) Resp 16 Wt 81.7 kg (180 lb 3.2 oz) SpO2 99% BMI 23.13 kg/m?? KPS: 80 GEN: appears well, no distress SKIN: dry desquamation, erythema MUCOSA: patchy mucositis posterior OP, left buccal mucosa Assessment: Ongoing weight loss, has expressed desire to avoid G tube. CTCAE TOXICITY GRADES (see below for hernandez): Site Grade Skin 1 Xerostomia 2 Pharyngeal Mucositis 2 Dysphagia 0 Hoarseness 0 Plan: ?? Continue RT per prescription ?? Pain control: ?? OTC medications prn ?? Oxycodone 5-10mg prn. He may soon benefit from LA medication, but he agrees to defer this to Chris George or Vangie ?? Skin: Continue Alfred's cream over red areas, start Silvadene for areas of peeling ?? Mucositis: ?? Pain control: see above ?? Oral hygiene consisting of baking soda/salt rinse ?? BMX ?? Mucinex ?? Alimentation: recreation facility attendant following ?? Weight loss ongoing, Refusing G tube. ?? 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
--- OUTSIDE RECORDS SUMMARY | 2021-09-13 17:58 | XMS_ITS | Encounter Summary ---
:1975 Author Organization [facility] [place] [address] Care Team Providers Name Role Phone Gregg Garcia MD Primary Care Provider Encounter Details Date Type Department Care Team Description 04/15/2019 Clinical Support Hematology/Oncology at Swathi Wise RD Tonsil cancer [address] [phone] Social History Tobacco Use Types [...] encounter Progress Notes Swathi Wise RD - 04/15/2019 11:00 AM EST [facility] Follow Up Assessment Referred by: Dr. George Reason for visit: symptom management Patient Name and Diagnosis: Delvin Rosario is a 43 Y m with tonsilar cancer. S/p chemoradiation treatment. Returns to clinic for hydration and anti-emetic. Assessment: HPI Patient Active Problem List Diagnosis Code ??? Neck mass R22.1 ??? 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 Drug-induced nausea and vomiting R11.2, T50.905A Meds: reviewed Labs: No results found for this or any previous visit (from the past 24 hour(s)). Estimated body mass index is 21.46 kg/m?? as calculated from the following: Height as of an earlier encounter on 04/15/19: 188 cm (6' 2.02). Weight as of an earlier encounter on 04/15/19: 75.8 kg (167 lb 3.2 oz). Wt Readings from Last 3 Encounters: 04/15/19 75.8 kg (167 lb 3.2 oz) 04/10/19 76.2 kg (168 lb) 04/08/19 75.6 kg (166 lb 9.6 oz) Wt Hx: UBW: 220 - 225 lbs Lost 15-20 lbs 3 mos p/t tx, platuaed off at 215 lbs in October - Nov. 205 lbs on 01/16/19 Estimated daily PO intake: Drinks approx. 3 high calorie shakes spread throughout the day. Each shake is roughly 1000 kcals each. Occasional soups. Water: at least 3 pints/d Nutrition Support: N/A Has BMX, will use prn. + oxycodone 20 min p/t eating. Tastes starting to return. Bowels: working, taking softeners daily and miralax once every few days. Nutrition Diagnosis: Characteristics Severity Insufficient Energy Intake Unintended Weight Loss 23% loss total during treatment Loss of Subcutaneous Fat Loss of Muscle Mass Fluid Accumulation Diminished Functional Capacity Met with Delvin during IVF. He completed cCRT on 03/11/09. Patient overall seems to be improving, in better spirits. He reports continued improvements in appetite, intake, and taste. Last week he was able to increase to 2500 kcals/d and is now estimating approximately 3300 kcals/d. Weight is still remaining stable. Nausea has improved, however, he notes a burning pain on the roof of his mouth that is bothersome. This is a new symptom and he states that he did discuss this with MD. Room temperature liquids work best for him at this point. He is chasing his shakes with room temp/warm water which seems to help. Occasionally will include soups in diet. Reviewed/reinforced calorie needs. Continue high calorie shakes/soups with goal for >3000kcal/d. Nutrition Intervention: ? Increase caloric needs ? Modify diet consistency: mostly liquids, soft foods as tolerated ? Increase frequency of meals and snacks ? Need for supplements - add additional Ensure as needed Nutrition Goals: Maintain adequate oral intake; prevent further weight loss Monitoring and Evaluation: Will follow up with Edlvin in 1 week to re-evaluate. Thank you for this consult. LASHONDA Grover documented in this encounter Plan of Treatment Upcoming Encounters Date Type Specialty Care Team Description 10/04/2021 Office Visit Dermatology Tg Velasco MD [facility] BLANCHE DALAL-DERMAT [place], [place] [address] (Wo rk) documented as of this encounter Visit Diagnoses Diagnosis Tonsil cancer Malignant neoplasm of tonsil documented in this encounter Care Teams Motor Builder Winder Relationship Specialty Start Date End Date Gregg Garcia MD PCP - General General Internal Medicine 09/24/18 [address] [place] [address] documented as of this encounter
--- OUTSIDE RECORDS SUMMARY | 2021-09-13 17:58 | XMS_ITS | Encounter Summary ---
:1975 Author Organization [facility] [address] Care Team Providers Name Role Phone Gregg Garcia MD Primary Care Provider Reason for Visit Reason Comments Other Hydratiom Encounter Details Date Type Department Care Team Description 03/14/2019 Infusion Hematology Oncology at [facility] ug-induced nausea and vomiting; [facility] Tonsil cancer [address] [place] [phone] Social History Tobacco Use Types [...] documented as of this encounter Progress Notes Licha Mcnally RN - 03/14/2019 10:00 AM EST INFUSION THERAPY ADMINISTRATION NOTES [...] [facility] [address] BLANCHE DALAL-DERMAT [place], [place] [address] (Wo rk) documented as of this encounter Visit Diagnoses Diagnosis Drug-induced nausea and vomiting Nausea with vomiting Tonsil cancer Malignant neoplasm of tonsil documented in this encounter Administered Medications Inactive Administered Medications - up to 3 most recent administrations Medication Order MAR Action Action Date Dose Rate Site ondansetron (ZOFRAN) injection 8 mg Given 03/14/2019 10:31 AM EST 8 mg 8 mg, Intravenous, ONCE PRN, 1 dose, Starting on Lee Ann 03/14/19 at 1015, Until Lee Ann 03/14/19 at 1031, Nausea sodium chloride 0.9% infusion New Bag 03/14/2019 10:28 AM EST 1,000 mLs 500 mL/hr 1,000 mL (1 L), at 500 mL/hr, Intravenous, ONCE, 1 dose, On Lee Ann 03/14/19 at 1045 documented in this encounter Care Teams Head Of Ethics And Compliance Relationship Specialty Start Date End Date Gregg Garcia MD PCP - General General Internal Medicine 09/24/18 [address] [place] [address] documented as of this encounter
--- OUTSIDE RECORDS SUMMARY | 2021-09-13 17:58 | XMS_ITS | Encounter Summary ---
:1975 Author Organization [facility] [address] Care Team Providers Name Role Phone Gregg Garcia MD Primary Care Provider Reason for Visit Reason Comments Other Hydration & Antiemetic Encounter Details Date Type Department Care Team Description 02/22/2019 Infusion Hematology Oncology at [facility] ug-induced nausea and vomiting; [facility] Tonsil cancer [address] [place] [phone] Social History Tobacco Use Types [...] encounter Progress Notes Licha Mcnally RN - 02/22/2019 11:00 AM EST INFUSION THERAPY ADMINISTRATION NOTES DIAGNOSIS: Tonsil CA REASON FOR VISIT: Hydration and antiemetics SUBJECTIVE Delvin states he has slight nausea, vomiting due to mucus. He is getting soft solids in but his weightis down today. He will meet with Tammy on Monday along with Dr. George. OBJECTIVE LAB DATA: N/A IV ACCESS: PIV REACTIONS (DESCRIPTION, TIME, INTERVENTION AND EFFECTIVENESS)none ASSESSMENT Delvin was awake, alert and she tolerated treatment well. PLAN Return to clinic per routine. documented in this encounter Plan of Treatment Upcoming Encounters Date Type Specialty Care Team Description 10/04/2021 Office Visit Dermatology Tg Velasco MD [facility] ER DR BLANCHE DALAL-DERMAT [place], [place] [address] (Wo rk) documented as of this encounter Visit Diagnoses Diagnosis Drug-induced nausea and vomiting Nausea with vomiting Tonsil cancer Malignant neoplasm of tonsil documented in this encounter Administered Medications Inactive Administered Medications - up to 3 most recent administrations Medication Order MAR Action Action Date Dose Rate Site ondansetron (ZOFRAN) injection 8 mg Given 02/22/2019 10:35 AM EST 8 mg 8 mg, Intravenous, ONCE PRN, 1 dose, Starting on Mon02/22/19 at 1010, Until Mon02/22/19 at 1035, Nausea sodium chloride 0.9% infusion New Bag 02/22/2019 10:15 AM EST 1,000 mLs 500 mL/hr 1,000 mL (1 L), at 500 mL/hr, Intravenous, ONCE, 1 dose, On Mon02/22/19 at 1030 documented in this encounter Care Teams Core Driller Relationship Specialty Start Date End Date Gregg Garcia MD PCP - General General Internal Medicine 09/24/18 [address] [place] [address] documented as of this encounter
--- OUTSIDE RECORDS SUMMARY | 2021-09-13 17:58 | XMS_ITS | Encounter Summary ---
:1975 Author Organization [facility] [place] [address] Care Team Providers Name Role Phone Gregg Garcia MD Primary Care Provider Encounter Details Date Type Department Care Team Description 02/18/2019 [facility] Jace [facility] ONCOLOGY DEPT. [place], [place] [phone] [place] [address] [phone] (Wo rk) Social History Tobacco Use Types [...] Dermatology Tg Velasco MD [facility] [address] BLANCHE DALAL[address]DERMAT [place], [place] [address] (Wo rk) documented as of this encounter Visit Diagnoses Diagnosis Tonsil cancer Malignant neoplasm of tonsil Chemotherapy induced nausea and vomiting Nausea with vomiting documented in this encounter Care Teams Clay Carman Relationship Specialty Start Date End Date Gregg Garcia MD PCP - General General Internal Medicine 09/24/18 [address] [place] [address] documented as of this encounter
--- OUTSIDE RECORDS SUMMARY | 2021-09-13 17:58 | XMS_ITS | Encounter Summary ---
:1975 Author Organization [facility] [place] [address] Care Team Providers Name Role Phone Gregg Garcia MD Primary Care Provider Encounter Details Date Type Department Care Team Description 02/22/2019 Clinical Support Hematology/Oncology at [facility] Carmen, Tonsil cancer [facility] [address] [place] [phone] Social History Tobacco Use Types Packs/Day [...] documented as of this encounter Progress Notes Mary Carmen Sanchez, RD - 02/22/2019 11:15 AM EST [facility] Follow Up Assessment Referred by: Dr. George Reason for visit: symptom management Patient Name and Diagnosis: Delvin Rosario is a 43 Y m with tonsilar cancer. This is the end of weeks 6 of concurrent chemoradiation; today is radiation fraction #26 of 35 anticipated. This is day #17 of the second cycle of cisplatin. Switching to weekly carboplatin and paclitaxel as of 02/25 d/t grade 3 nausea and grade 2 ototoxicity. Assessment: HPI Patient Active Problem List Diagnosis Code ??? Neck mass R22.1 ??? 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 Drug-induced nausea and vomiting R11.2, T50.905A Meds: reviewed Labs: No results found for this or any previous visit (from the past 24 hour(s)). Estimated body mass index is 24.13 kg/m?? as calculated from the following: Height as of an earlier encounter on 02/22/19: 188 cm (6' 2.02). Weight as of an earlier encounter on 02/22/19: 85.3 kg (188 lb). Wt Readings from Last 3 Encounters: 02/22/19 85.3 kg (188 lb) 02/20/19 84.6 kg (186 lb 9.6 oz) 02/18/19 85.4 kg (188 lb 3.2 oz) Wt Hx: UBW: 220 - 225 lbs Lost 15-20 lbs 3 mos p/t tx, platuaed off at 215 lbs in October - Nov. 205 lbs on 01/16/19 Estimated daily PO intake: Water now tastes salty, Soft solids: chx noodle soup, yogurt w/ fruit, canned fruit. Aiming for 2500 calories Intake: 3 CIB w/ whole milk and ice cream, 100 cals of heavy cream, and 100 chocolate syrup. EnsurePlus - 1 d, consistently. Water: at least 3 pints/d Nutrition Support: No Nutrition Diagnosis: Characteristics Severity Insufficient Energy Intake 66% of estimated intake needs by PO Unintended Weight Loss 9.2% weightloss in 2 mos; severe; 2% in one week Loss of Subcutaneous Fat Loss of Muscle Mass Fluid Accumulation Diminished Functional Capacity Met with Delvin during IVF. He is approaching the 10% weightloss gopi for g-tube. However, he reports that nausea and dysgeusia are his biggest barrier to intake. He now reports odynophagia 5/10 scale. Does have oxycodone and will take it prn.. Lorazepam, olanzapine, and zofran for nausea. Reacted to compazine and isn't able to use. He is taking in 1-2 Ensure Plus/d with 3 CIB shakes (500 cals, 15 g pro each) the aim of 2500 calories. Reviewed calorie needs. Offered suggestions on how to boost caloric intake w/o volume. Recommended using a straw, but this doesn't help. + phelgm and foam secretions. + Mucinex liquid, taking 30 mls every 4, and using a syringe to take. + BSSW rinses throughout the day. Nutrition Intervention: ? Increase caloric needs ? Modify diet consistency: ? Increase frequency of meals and snacks ? Need for supplements Nutrition Goals: Educational Handouts provided: Other Recommendations: ? Monitoring and Evaluation: Will follow up with Delvin in 1 week to re-evaluate. I have provided him with my card and contact information should he have any questions in the meantime. Thank you for this consult. Mary Carmen SANCHEZ RD documented in this encounter Plan of Treatment Upcoming Encounters Date Type Specialty Care Team Description 10/04/2021 Office Visit Dermatology Tg Velasco MD [facility] ER DR BLANCHE DALAL-DERMAT [place], [place] [address] (Wo rk) documented as of this encounter Visit Diagnoses Diagnosis Tonsil cancer Malignant neoplasm of tonsil documented in this encounter Care Teams Zipper Machine Operator Relationship Specialty Start Date End Date Gregg Garcia MD PCP - General General Internal Medicine 09/24/18 [address] [place] [address] documented as of this encounter
--- OUTSIDE RECORDS SUMMARY | 2021-09-13 17:58 | XMS_ITS | Encounter Summary ---
:1975 Author Organization [facility] [place] [address] Care Team Providers Name Role Phone Gregg Garcia MD Primary Care Provider Encounter Details Date Type Department Care Team Description 02/22/2019 [facility] Jace [facility] ONCOLOGY DEPT. [place], [place] [phone] Social History Tobacco Use Types Packs/Day Years [...] Reading Time Taken Comments Blood Pressure 115/68 02/22/2019 9:45 AM EST Pulse 82 02/22/2019 9:45 AM EST Temperature 37 ??C (98.6 ??F) 02/22/2019 9:45 AM EST Respiratory Rate 18 02/22/2019 9:45 AM EST Oxygen Saturation 100% 02/22/2019 9:45 AM EST Inhaled Oxygen Concentration - - Weight 85.3 kg (188 lb) 02/22/2019 9:45 AM EST Height 188 cm (6' 2.02) 02/22/2019 9:45 AM EST copied Body Mass Index 24.13 02/22/2019 9:45 AM EST documented in this encounter Progress Notes Chris George MD - 02/22/2019 9:30 AM EST Hematology/Oncology Clinic [facility] Patient Active Problem List Diagnosis ??? Drug-induced nausea and vomiting ??? Tonsil cancer cT1 N2 M0 p16(+), L tonsil A. Presenting with L neck mass; trivial tobacco history; small L tonsil tumor, EUA 12/10/2018: non-ker SCCa B. Definitive radiation 01/16/2019; high dose cisplatin X 2, c/b grade 3 nausea and gr 2 ototoxcity;switch to weekly carbo+paclitaxel 02/25 ??? Neck mass Brandon returns for a checkup. This is the end of weeks 6 of concurrent chemoradiation; today is radiation fraction #26 of 35 anticipated. ONCBCN ONCOLOGY (AMB) 01/16/2019 02/06/2019 Day, Cycle Day 1, Cycle 1 Day 1, Cycle 2 CISplatin (PLATINOL) IV 100 mg/m2/dose = 224 mg 90 mg/m2/dose = 202 mg This is day #17 of the second cycle of cisplatin. He has had major trouble with nausea. This is improved slightly in the past week; he continues on a multidrug cocktail of antiemetics and has had better oral intake and less nausea, no vomiting, over the past week. His weight has been stable. His tastesensation is still absent, with water and liquid nutrition supplements actually tasting bad. Nonetheless he is getting these down with a great deal of willpower. Grade 2 tinnitus is unchanged. He is having no peripheral neuropathy however. No recent infections. Energy level is fair, KPS 80. He is having more radiation related irritation of the skin of the neck and of the throat. Dr. Oglesby can some low-dose intermittent narcotic pain medicines which Delvin Is using to good effect. Bowels are regular. Physical exam: He looks well, tired, but in quiet good spirits. Oral exam shows grade 2 mucositis along the left soft palate. No evidence of candidiasis. Tonsil tumor is no longer visible. Neck exam shows grade 1 erythema in the radiation field. I am unable to palpate distinct neck adenopathy. Lungs are clear Cardiac exam is normal Abdomen is benign with no hepatosplenomegaly or masses Extremities are without clubbing cyanosis or edema Neurologic exam shows normal motor and sensory function. Cranial nerves normal. Reflexes 1+. Labs: [facility] labs from 02/21 showed a white count of 2.33 with ANC 1290, hemoglobin a bit lower at 11.5 g, platelets stable at 144. Chemistry studies show normal electrolytes, stable creatinine at 1.15, and hepatic enzyme panel which is normal. Albumin is 3.5. Impression: P 16+ left tonsil cancer, responding to concurrent chemoradiation, but with cisplatin-induced toxicities of grade 3 nausea and vomiting and grade 2 ototoxicity. The nausea has improved withmore time away from cisplatin, and with a full antiemetic mixture. Overall he is tolerating this aggressive therapy as well as can be expected. Plan: We will switch to weekly carboplatin and paclitaxel as of 02/25, and we anticipate that he will get 2 doses of this before the completion of the radiotherapy course. We will continue the same supportive care which includes thrice weekly intravenous hydration. He is doing a good job at hydration and nutrition support at home. Continue current supportive medications, and continue as needed pain medications for throat mucositis. We filled out [place] paperwork for his today. Chris George MD, FACP supervisor frame sample and pattern Hematology/Oncology Section [facility]/[place] [address] Voice recognition software used for this note; please excuse woodworking belt sander errors. I personally reviewed past medical, surgical, family medical histories, reviewed current medications, vital signs, labs, and performed full review of systems. These are documented below the narrative for clarity and succinctness. No outpatient medications have been marked as taking for the 02/22/19 encounter (Office Visit) with Chris George MD. Review of Systems: Review of systems is negative for other SPINE SPECIALIST, bone, pulmonary, cardiac, GI, , extremity, neurologic, endocrine, skin, constitutional, emotional, or functional problems. Vitals Office Visit from 02/22/2019 in Hematology/Oncology at [facility] Weight 85.3 kg (188 lb) Height 188 cm (6' 2.02) [copied] BSA (Calculated - sq m) 2.11 sq meters BMI (Calculated) 24.12 Temp 37 ??C (98.6 ??F) Temp src Oral Heart Rate 82 Heart Rate Source Monitor Resp 18 BP 115/68 BP Location Right arm Patient Position Sitting SpO2 100 % Motor Neuropathy N/A Sensory Neuropathy N/A Body surface area is 2.11 meters squared. Wt Readings from Last 3 Encounters: 02/22/19 85.3 kg (188 lb) 02/20/19 84.6 kg (186 lb 9.6 oz) 02/18/19 85.4 kg (188 lb 3.2 oz) No results found for this or any previous visit (from the past 72 hour(s)). ++++++++++++++++++++++++++++++++++++++++++++++++++++ documented in this encounter Plan of Treatment Upcoming Encounters Date Type Specialty Care Team Description 10/04/2021 Office Visit Dermatology Tg Velasco MD [facility] ER DR BLANCHE DALAL-DERMAT [place], [place] [address] (Wo rk) documented as of this encounter Procedures Procedure Name Priority Date/Time Associated Diagnosis Comme nts LAB SCAN 02/21/2019 12:00 AM Results for this EST procedure are i n the results section . documented in this encounter Results SCAN DOC: LAB (02/21/2019 12:00 AM EST) Narrative 02/21/2019 12:00 AM EST This result has an attachment that is no t available. Ordered by an unspecified provider. Scanning Provider MEDIA MGR SCAN EXT ORDR/RSLT documented in this encounter Visit Diagnoses Diagnosis Tonsil cancer Malignant neoplasm of tonsil documented in this encounter Care Teams Electric Power Line Repairer Relationship Specialty Start Date End Date Gregg Garcia MD PCP - General General Internal Medicine 09/24/1812/03/ [address] [place] [address] documented as of this encounter
--- OUTSIDE RECORDS SUMMARY | 2021-09-13 17:58 | XMS_ITS | Encounter Summary ---
:1975 Author Organization [facility] [place] [address] Care Team Providers Name Role Phone Gregg Garcia MD Primary Care Provider Reason for Visit Reason Comments IV Access Hydration and Antiemetic Encounter Details Date Type Department Care Team Description 04/12/2019 Infusion Hematology Oncology at [facility] ug-induced nausea and vomiting; [facility] Tonsil cancer [address] [place] [address] [phone] Social History Tobacco Use Types [...] Sign Reading Time Taken Comments Blood Pressure 104/58 04/12/2019 8:50 AM EST Pulse 73 04/12/2019 8:50 AM EST Temperature 36.6 ??C (97.9 ??F) 04/12/2019 8:50 AM EST Respiratory Rate 16 04/12/2019 8:50 AM EST Oxygen Saturation 100% 04/12/2019 8:50 AM EST Inhaled Oxygen Concentration - - Weight - - Height - - Body Mass Index - - documented in this encounter Progress Notes Juan Pablo Guevara RN - 04/12/2019 8:30 AM EST INFUSION THERAPY ADMINISTRATION NOTES DIAGNOSIS: Tonsillar cancer REASON FOR VISIT: Hydration and anti-emetic SUBJECTIVE: Delvin reports no complaints. OBJECTIVE: VSS. IV ACCESS: PIV ASSESSMENT: Delvin was awake, alert and tolerated treatment well. PIV discontinued prior to dismissal. PLAN: Return to clinic as scheduled. documented in this encounter Plan of Treatment Upcoming Encounters Date Type Specialty Care Team Description 10/04/2021 Office Visit Dermatology Tg Velasco MD [facility] [address] BLANCHE DALAL-DERMAT [place], [place] [address] (Wo rk) documented as of this encounter Visit Diagnoses Diagnosis Drug-induced nausea and vomiting Nausea with vomiting Tonsil cancer Malignant neoplasm of tonsil documented in this encounter Administered Medications Inactive Administered Medications - up to 3 most recent administrations Medication Order MAR Action Action Date Dose Rate Site ondansetron (ZOFRAN) injection 8 mg Given 04/12/2019 9:20 AM EST 8 mg 8 mg, Intravenous, ONCE PRN, 1 dose, Starting on Mon04/12/19 at 0837, Until Mon04/12/19 at 0920, Nausea sodium chloride 0.9% infusion New Bag 04/12/2019 8:57 AM EST 1,000 mLs 500 mL/hr 1,000 mL (1 L), at 500 mL/hr, Intravenous, ONCE, 1 dose, On Mon04/12/19 at 0900 documented in this encounter Care Teams Lift Team Technician Relationship Specialty Start Date End Date Gregg Garcia MD PCP - General General Internal Medicine 09/24/18 [address] [place] [address] documented as of this encounter
--- OUTSIDE RECORDS SUMMARY | 2021-09-13 17:58 | XMS_ITS | Encounter Summary ---
:1975 Author Organization [facility] [place] [address] Care Team Providers Name Role Phone Gregg Garcia MD Primary Care Provider Reason for Visit Speech Therapy ([facility]) - Closed Specialty Diagnoses / Procedures Referred By Contact Refer red To Contact Speech Pathology / Diagnoses Tonsillar cancer Mihir Vences, [facility] Talent Sourcing Specialist Rehab Speech Therapy [facility] [address] [place] RADIATION ONCOLOGY [address] [place] [address] Referral ID Status Reason Start Date Expiration Date Visits V isits Requested Authorized [id number] Closed Evaluate and 04/04/2019 04/03/2020 1 1 Treat Encounter Details Date Type Department Care Team Description 04/11/2019 Office Visit Speech Therapy at [facility] Cristy Cordon, Other dysphagia; [facility] LIVING SUPERVISOR [place] [address] PHYSICAL MEDICINE & [place] [address] Social History Tobacco Use Types Packs/Day Years [...] Miscellaneous Notes Initial Evaluation - Cristy Cordon, LIVING SUPERVISOR - 04/11/2019 10:00 AM EST [facility] Rehabilitation Medicine Department Speech-Language Pathology Office Swallow Evaluation Patient Name: Delvin Rosario Date of : 1975 Referring MD: Mihir Vences MD Date Seen by MD: 04/04/2019 Diagnosis: Tonsillar cancer, dysphagia Date of Onset: 2018 Date of Evaluation: 04/11/2019 Evaluation Time: 60 min, no timed codes Presenting Problem: Delvin Rosario, a 43 y.o. 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 Definitive SUPERVISOR RECEIVING AND PROCESSING completed 03/11/19. Patient reported he is doing ok with swallowing thin liquids and shakes. He was coughing and choking last week on mucous but this has improved since last week. Patient with pain on the roof of his mouth of new onset (alveolar ridge). He discussed this with . His throat hurts some (Roof of mouth 7-8 / 10, throat is 4/10). Patient is using painkillers at home on occasion. He may take medications before a meal. He engages in baking soda rinses all day long and reported doing fine with oral care. 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 He is working from home and from the office during his treatment. Pt is taking nutrition orally by drinking almost exclusively shakes. He has tried mashed potatoes and oatmeal but the thicker things tend to feel stuck and require significant liquid wash down. Pt is taking his meds orally and reported his pills are finally going down. He was having difficultywith a gel cap. This has not happened in a week or so. Pt feels he is doing ok now. Pt spent 1 monthbefore treatment with liquid wash down with all foods. Pt lives with and children ages 2 and 6. Pt is now 3 weeks post treatment. Functional Limitations: H/o swallowing difficulty Throat clear Impaired taste sensation though improving. Prior Medical History: Past Medical History: Diagnosis Date ??? High cholesterol Patient Active Problem List Diagnosis Code ??? Neck mass R22.1 ??? 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 Drug-induced nausea and vomiting R11.2, T50.905A Medications: Current Outpatient Medications on File Prior to Visit Medication Sig Dispense Refill ??? dronabinol (MARINOL) 5 mg Capsule Take 1 capsule by mouth 2 times daily (before meals). (Patientnot taking: Reported on 04/08/2019) 30 capsule 0 ??? polyethylene glycol (Miralax) 17 gram/dose [...] as needed. (Patient not taking: Reported on 04/08/2019) 300 mL 11 ??? LORazepam (ATIVAN) 1 mg Tablet Take 1 tablet by mouth every 6 hours as needed (nausea). 30 tablet 3 ??? cholecalciferol, Vitamin D3, 1,000 unit Tablet Take 1,000 Units by mouth daily. ??? acetaminophen (TYLENOL) 325 mg Tablet Take 650 mg by mouth every 4 hours as needed for Pain. ??? atorvastatin (LIPITOR) 40 mg Tablet 0 ??? multivitamin (THERAGRAN) Tablet Take 1 tablet by mouth daily. ??? ubidecarenone (COENZYME Q10) 100 mg Tablet Take by mouth daily. ??? ibuprofen (ADVIL;MOTRIN) 600 mg tablet (Patient not taking: No sig reported) Current Facility-Administered Medications on File Prior to Visit Medication Dose Route Frequency Provider Last Rate Last Dose ??? [COMPLETED] sodium chloride 0.9% infusion 1 L Intravenous Once Chris George MD Stopped at 04/10/19 1051 O: Oral Peripheral ??? Nasal emission, mild, intermittent. ??? Tongue with short frenulum but functional mobility. ??? Lymphedema under chin primarily. Bolus Presentation(s) ??? Thin liquid ??? [place] consistency liquid ??? Puree via spoon Oral Preparatory Phase ??? WFL Pharyngeal Phase ??? WFL Difficulties Observed: ??? c/o stuck feeling at the level of the larynx, improved with liquid wash down, not with chin tuck. Esophageal Phase WFL A: ? ? Suspected pharyngeal dysphagia to solids > liquids based on symptoms. ??? Ongoing oral discomfort with new onset discomfort on the palate. ??? Deconditioning related to lack of swallowing during treatment. ??? Lymphedema signs at the anterior neck. ??? Nasal emission observed, mild and intermittent. Recommendations: ??? Diet As tolerated (pt currently drinking smoothies and has had oatmeal. Does not do well with foods with particles (eg. Cottage cheese). ??? Continue pills as prescribed, use liquid wash down or puree as needed. ??? Continue baking soda rinses. ??? Engage in effortful swallow, [place] swallow, Nikki Maneuver, practice effortful /k/ and /g/. ??? Pt to contact me in 1 week or sooner to schedule a Modified Barium Swallow if he does not continue to improve. Goals: ??? Patient will resume regular diet without s/s of aspiration. ??? Patient will comply with a home exercise program, initial education and training provided today. P: ??? Phone contact with patient next week to determine need for modified barium swallow. ??? Pt. was in agreement with treatment plan. Thank you for this consult with this patient. Please feel free to page me with any questions or concerns. Cristy Cordon MS CCC-LIVING SUPERVISOR Outpatient Rehabilitation Medicine Pager [phone] documented in this encounter Plan of Treatment Upcoming Encounters Date Type Specialty Care Team Description 10/04/2021 Office Visit Dermatology Tg Velasco MD [facility] [address] BL[address]HE DALAL[address]DERMAT [place], [place] [address] (Wo rk) Scheduled Referrals Name Type Priority Associated Diagnoses Order S chedule Referral to Speech Outpatient Referral Routine Tonsillar cance r Ordered: Therapy 04/04/2019 documented as of this encounter Visit Diagnoses Diagnosis Other dysphagia Tonsil cancer Malignant neoplasm of tonsil documented in this encounter Care Teams Picker And Sorter Load And Unload Relationship Specialty Start Date End Date Gregg Garcia MD PCP - General General Internal Medicine 09/24/18 [address] [place] [address] documented as of this encounter
--- OUTSIDE RECORDS SUMMARY | 2021-09-13 17:58 | XMS_ITS | Encounter Summary ---
:1975 Author Organization [facility] [place] [address] Care Team Providers Name Role Phone Gregg Garcia MD Primary Care Provider Encounter Details Date Type Department Care Team Description 04/15/2019 Office Visit Hematology/Oncology at [facility] bobby Brady MD Tonsil cancer; [facility] Tonsillar cancer; [address] [place], [place] ONCOLOGY DEPT. [address] [place] [address] [phone] (Wo rk) Social History Tobacco Use Types [...] Sign Reading Time Taken Comments Blood Pressure 96/62 04/15/2019 10:27 AM EST Pulse 110 04/15/2019 10:27 AM EST Temperature 36.9 ??C (98.4 ??F) 04/15/2019 10:27 AM EST Respiratory Rate 16 04/15/2019 10:27 AM EST Oxygen Saturation 100% 04/15/2019 10:27 AM EST Inhaled Oxygen Concentration - - Weight 75.8 kg (167 lb 3.2 oz) 04/15/2019 10:27 AM EST Height 188 cm (6' 2.02) 04/15/2019 10:27 AM EST Body Mass Index 21.46 04/15/2019 10:27 AM EST documented in this encounter Progress Notes Chris George MD - 04/15/2019 10:15 AM EST Hematology/Oncology Clinic [facility] Patient Active Problem List Diagnosis [...] carbo+paclitaxel 02/25/2019 ??? Neck mass Med Onc followup visit. Now 5 weeks from completion of chemoradiation. Feeling slightly better this week, with a bit more energy, and a bit less throat pain. However, he has found that the roof of his mouth is been quite tender both for mechanical and thermal irritants. This is been limiting his oral intake. Taste sensation is beginning to return. He is having to use occasional oxycodone, which he takes prior to eating. The Magic mouthwash has been helpful to numb the palate as well. No new post chemoradiation problem; tinnitus is unchanged. No peripheral neuropathy. Bowels are regular. He has continued to use lorazepam to help him sleep, and has been taking 3-4 doses of oxycodone per day to help with mouth pain. Physical exam: He is in no acute distress, alert and conversant. His voice is stronger. Oral exam shows residual radiation mucositis along the curtain edge of the soft palate, but most of the exudative mucositis has resolved. There is a thin fine white coating of the hard palate, and of the tongue. The left tonsil tumor as before is not visible. Neck exam shows complete healing of the radiation dermatitis, no palpable adenopathy, grade 1 diffuse lymphedema Lungs are clear Cardiac exam is normal, tachycardic when he first entered the clinic but during the exam this is come back down to the 60-80 range with respiratory variation. The abdomen is benign, without hepatosplenomegaly or masses Extremities are normal Neurologic exam shows normal motor and sensory function. Cranial nerves normal, hearing is functionally intact to quiet conversation volume Reflexes 1+. No labs today. Impression: P 16+ tonsil cancer presented with left neck mass, clinically EILEEN 5 weeks from completion of chemoradiation, with ongoing chemoradiation side effects. Increasing palate sensitivity to mechanical and thermal stimuli. Exam suggest the possibility of candidiasis although the picture is not classic. I do not see signs of other types of infection however. Plan: Empiric addition of nystatin swish and swallow 3 times daily, with prescription sent for a month supply. I encouraged him to cut down and then stop the lorazepam, and try to substitute Magic mouthwash and acetaminophen for as much oxycodone as he can tolerate, with an eye towards weaning him away from the stronger medications in the next few weeks. We will proceed with intravenous hydration today and 3 times this week, follow- up next week to assess progress and the need for further supportive care. Chris George MD, FACP customs verifier Hematology/Oncology Section [facility] [address] Voice recognition software used for this note; please excuse nursing program manager errors. I personally reviewed past medical, surgical, family medical histories, reviewed current medications, vital signs, labs, and performed full review of systems. These are documented below the narrative for clarity and succinctness. Outpatient Medications Marked as Taking for the 04/15/19 encounter (Office Visit) with Chris George MD [...] hours as needed. 300 mL 11 ??? LORazepam (ATIVAN) 1 mg Tablet Take 1 tablet by mouth every 6 hours as needed (nausea). 30 tablet 3 ??? acetaminophen (TYLENOL) 325 mg Tablet Take 650 mg by mouth every 4 hours as needed for Pain. ??? atorvastatin (LIPITOR) 40 mg Tablet 0 ??? multivitamin (THERAGRAN) Tablet Take 1 tablet by mouth daily. Review of Systems: Review of systems is negative for other LINE TENDER FLAKEBOARD, bone, pulmonary, cardiac, GI, , extremity, neurologic, endocrine, skin, constitutional, emotional, or functional problems. Vitals Office Visit from 04/15/2019 in Hematology/Oncology at [facility] Weight 75.8 kg (167 lb 3.2 oz) Height 188 cm (6' 2.02) BSA (Calculated - sq m) 1.99 sq meters BMI (Calculated) 21.46 Temp 36.9 ??C (98.4 ??F) Temp src Temporal Heart Rate (!) 110 Heart Rate Source Right, NIBP Resp 16 BP 96/62 BP Location Right arm Patient Position Sitting SpO2 100 % Karnofsky Score 70 Body surface area is 1.99 meters squared. Wt Readings from Last 3 Encounters: 04/15/19 75.8 kg (167 lb 3.2 oz) 04/10/19 76.2 kg (168 lb) 04/08/19 75.6 kg (166 lb 9.6 oz) No results found for this or any previous visit (from the past 72 hour(s)). ++++++++++++++++++++++++++++++++++++++++++++++++++++ documented in this encounter Plan of Treatment Upcoming Encounters Date Type Specialty Care Team Description 10/04/2021 Office Visit Dermatology Tg Velasco MD [facility] [address] D[address] [place], [place] [address] (Wo rk) documented as of this encounter Visit Diagnoses Diagnosis Tonsil cancer Malignant neoplasm of tonsil Tonsillar cancer Malignant neoplasm of tonsil Odynophagia Dysphagia, unspecified documented in this encounter Care Teams Loom Operator Apprentice Relationship Specialty Start Date End Date Gregg Garcia MD PCP - General General Internal Medicine 09/24/18 [address] [place] [address] documented as of this encounter
--- OUTSIDE RECORDS SUMMARY | 2021-09-13 17:58 | XMS_ITS | Encounter Summary ---
:1975 Author Organization [facility] [place] [address] Care Team Providers Name Role Phone Gregg Garcia MD Primary Care Provider Reason for Visit Reason Comments IV Medication Hydration and Zofran Encounter Details Date Type Department Care Team Description 04/03/2019 Infusion Hematology Oncology at [facility] ug-induced nausea and vomiting; [facility] Tonsil cancer [address] [place] [address] [phone] Social History Tobacco Use Types [...] Sign Reading Time Taken Comments Blood Pressure 103/58 04/03/2019 8:55 AM EST Pulse 103 04/03/2019 8:55 AM EST Temperature 36.9 ??C (98.4 ??F) 04/03/2019 8:55 AM EST Respiratory Rate 18 04/03/2019 8:55 AM EST Oxygen Saturation 100% 04/03/2019 8:55 AM EST Inhaled Oxygen Concentration - - Weight 76.7 kg (169 lb 3.2 04/03/2019 8:55 AM oz) EST Height 188 cm (6' 2.02) 04/03/2019 8:55 AM copied forw andre EST Body Mass Index 21.71 04/03/2019 8:55 AM EST documented in this encounter Progress Notes Usha Reynolds RN - 04/03/2019 8:30 AM EST INFUSION THERAPY ADMINISTRATION NOTES [...] [facility] [address] BL[address]HE DAL[address] [place], [place] [address] (Wo rk) documented as of this encounter Visit Diagnoses Diagnosis Drug-induced nausea and vomiting Nausea with vomiting Tonsil cancer Malignant neoplasm of tonsil documented in this encounter Administered Medications Inactive Administered Medications - up to 3 most recent administrations Medication Order MAR Action Action Date Dose Rate Site ondansetron (ZOFRAN) injection 8 mg Given 04/03/2019 9:42 AM EST 8 mg 8 mg, Intravenous, ONCE PRN, 1 dose, Starting on Mon04/03/19 at 0856, Until Mon04/03/19 at 0942, Nausea sodium chloride 0.9% infusion New Bag 04/03/2019 9:07 AM EST 1,000 mLs 500 mL/hr 1,000 mL (1 L), at 500 mL/hr, Intravenous, ONCE, 1 dose, On Mon04/03/19 at 0915 documented in this encounter Care Teams Heavy Forger Relationship Specialty Start Date End Date Gregg Garcia MD PCP - General General Internal Medicine 09/24/18 [address] [facility] 1 [place] [address] documented as of this encounter
--- OUTSIDE RECORDS SUMMARY | 2021-09-13 17:58 | XMS_ITS | Encounter Summary ---
:1975 Author Organization [facility] [place] [address] Care Team Providers Name Role Phone Gregg Garcia MD Primary Care Provider Encounter Details Date Type Department Care Team Description 03/12/2019 Orders Only Radiation Oncology a t [facility] Mihir Vences MD [facility] [place] [address] RADIATION ONCOLOGY [phone] [place], [place] [address] (Wo rk) Social History Tobacco [...] Office Visit Dermatology Tg Velasco MD [facility] [address] BL[address]HE DALAL[address]DERMAT [facility] [place], [place] [address] (Wo rk) documented as of this encounter Visit Diagnoses Not on filedocumented in this encounter Care Teams Endocrinology Teacher Relationship Specialty Start Date End Date Gregg Garcia MD PCP - General General Internal Medicine 09/24/18 [address] [facility] 1 [place] [address] documented as of this encounter
--- OUTSIDE RECORDS SUMMARY | 2021-09-13 17:58 | XMS_ITS | Encounter Summary ---
:1975 Author Organization [facility] Address [place] [id number] Care Team Providers Name Role Phone Gregg Garcia MD Primary Care Provider Encounter Details Date Type Department Care Team Description 03/20/2019 Office Visit Radiation Oncology at Mihir Vences, Tonsillar cancer; [facility] [address] [place] [phone] RADIATION ONCOLOGY [phone] [place] [id number] (Wo rk) Social History Tobacco Use Types [...] encounter Progress Notes Mihir Vences MD - 03/20/2019 9:30 AM EST FOLLOW UP VISIT NOTE Delvinlindsay Rosario is a 43 y.o. male with [id number] squamous cell carcinoma of the left tonsil, p16 (+), < 5 PY smoking history. Definitive LOOM FIXER APPRENTICE completed 03/11/19. Changes in medical condition Pain: controlled by Oxycodone (a few times / day), Fentanyl 25 mcg. Pain at 5-8 Secretions/Dryness: significant dysgeusia, significant xerostomia (BSSW, water, Mucinex). Swallowing Function: coughing / choking / gagging present Nutrition: ~ 4 ensure per day. No G tube. Aiming to 2 - 3K calories per day. Skin: no issues GI: --Constipation/Diarrhea: mild constipation, using stool softeners, Miralax --N/V: no nausea Hearing: stable increased tinnitus Nutrition Assessment: Weight : 94.5 kg initial Change: 80.3 -> 76.4 Objective: There were no vitals taken for this visit. SKIN: brisk skin erythema, patchy desquamation resolved now with dry desquamation MUCOSA: patchy mucositis posterior OP, no thrush Assessment: High level toxicity, requiring IV hydration, ongoing weight loss CTCAE TOXICITY GRADES (see below for hernandez): Site Grade Skin 2 Xerostomia 2 Pharyngeal Mucositis 2 Dysphagia 1 Hoarseness 0 Plan: ?? Pain control: ?? OTC medications prn ?? Oxycodone ?? Fentanyl 25 mcg ?? Skin: ?? Silvadene ?? Aquaphor prn ?? Jeans cream prn ?? Mucositis: ?? Pain control: see above ?? Oral hygiene consisting of baking soda/salt rinse ?? BMX ?? Mucinex ?? Alimentation: manager research following ?? Weight decreased slightly, all by mouth at this time. No G tube. ?? IV hydration several times/wk ?? N/V: Lorazepam, Zofran, olanzapine prn CTCAE v4.03 scales for reference Skin 0 [...] [facility] [address] BLANCHE DALAL-DERMAT [place], [place] [address] (Wo rk) documented as of this encounter Visit Diagnoses Diagnosis Tonsillar cancer Malignant neoplasm of tonsil Odynophagia Dysphagia, unspecified documented in this encounter Care Teams White Metal Corrosion Proofer Relationship Specialty Start Date End Date Gregg Garcia MD PCP - General General Internal Medicine 09/24/18 [address] [place] [address] documented as of this encounter
--- OUTSIDE RECORDS SUMMARY | 2021-09-13 17:58 | XMS_ITS | Encounter Summary ---
:1975 Author Organization [facility] [place] [address] Care Team Providers Name Role Phone Gregg Garcia MD Primary Care Provider Encounter Details Date Type Department Care Team Description 03/12/2019 Telephone Radiation Oncology at Katy Ohara RN [address] [phone] Social History Tobacco Use [...] Telephone Encounter - Katy Ohara RN - 03/12/2019 10:04 AM EST Telephone call to patient to assess narcotic medication use/need. He reports yesterday he took oxycontin 20 mg every 12 hours and one 20 mg dose oxycodone for breakthrough. Dr. Vences updated with this note. documented in this encounter Plan of Treatment Upcoming Encounters Date Type Specialty Care Team Description 10/04/2021 Office Visit Dermatology Tg Velasco MD [facility] [address] DAL[address]DERMAT [place], [place] [address] (Wo rk) documented as of this encounter Visit Diagnoses Not on filedocumented in this encounter Care Teams Global Recruiter Relationship Specialty Start Date End Date Gregg Garcia MD PCP - General General Internal Medicine 09/24/18 9 [address] [place] [address] documented as of this encounter
--- OUTSIDE RECORDS SUMMARY | 2021-09-13 17:58 | XMS_ITS | Encounter Summary ---
:1975 Author Organization [facility] [place] [address] Care Team Providers Name Role Phone Gregg Garcia MD Primary Care Provider Encounter Details Date Type Department Care Team Description 04/01/2019 Office Visit Hematology/Oncology at [facility] bobby Brady MD Tonsil cancer; [facility] [place] [address] Kassy prince [address] [place] [address] ONCOLOGY DEPT. [place], [place] [phone] Social History Tobacco Use Types Packs/Day Years [...] Sign Reading Time Taken Comments Blood Pressure 101/67 04/01/2019 10:23 AM EST Pulse 97 04/01/2019 10:23 AM EST Temperature 36.7 ??C (98 ??F) 04/01/2019 10:23 AM EST Respiratory Rate 16 04/01/2019 10:23 AM EST Oxygen Saturation 100% 04/01/2019 10:23 AM EST Inhaled Oxygen Concentration - - Weight 74.8 kg (164 lb 12.8 oz) 04/01/2019 10:23 AM EST Height 188 cm (6' 2.02) 04/01/2019 10:23 AM EST Body Mass Index 21.15 04/01/2019 10:23 AM EST documented in this encounter Progress Notes Chris George MD - 04/01/2019 10:15 AM EST Hematology/Oncology Clinic [facility] Patient Active Problem List Diagnosis ??? Drug-induced nausea and vomiting ??? Tonsil cancer cT1 N2 M0 p16(+), L tonsil A. Presenting with L neck mass; trivial tobacco history; small L tonsil tumor, EUA 12/10/2018: non-ker SCCa B. Definitive radiation 01/16/2019 - 03/11/2019; high dose cisplatin X 2, c/b grade 3 nausea and gr 2 ototoxcity; switch to weekly carbo+paclitaxel 02/25/2019 ??? Neck mass Here for med onc checkup. Now 3 weeks from completing treatment. He is still feeling quite poorly overall. He still has grade 1 tinnitus, unchanged. He is quite fatigued, with KPS 80; has no energy. Throat is still irritated, although pain is less of a problem. He is not had any PRN narcotics, is still on the fentanyl patch but thinks he could go without it. Taste s ensation is still absent, making it harder to getting any nutrition. He has been taking mostly Ensure and [place] instant breakfast supplements; he still has episodic gagging and emesis, not very predictable in onset. Sometimes just taking a shower will trigger emesis. He has very thick and copious phlegm, but expectorating this does not always trigger nausea/vomiting. Physical exam: He looks quite tired, perhaps a bit brighter than last week but still looks ill. He looks pale but a bit less so than last week Oral exam shows improvement in the tongue, with now normal pink filiform papillae; there is still grade 1 mucositis over the left soft palate. Tonsil tumor is no longer visible. Lymph node exam is negative; specifically the neck has no palpable adenopathy. Skin exam shows resolution of the erythema and desquamation in the radiation field. The lungs are clear Cardiac exam is normal Abdomen is benign, scaphoid but otherwise without hepatosplenomegaly or masses. Bowel sounds are quiet but present. Extremities show pallor but are otherwise normal. Neurologic exam shows normal cranial nerves, normal motor and sensory function, independent gait, and 2+ reflexes. Hearing not formally tested but he has no trouble with quiet conversational tone in the exam room. Labs: From 03/29, his white count was 5.3, hemoglobin 10.5, platelets 121. Chemistry panel was normal, including creatinine 0.76, and magnesium 2.0. Electrolytes were normal. Impression: Slow recovery from aggressive chemoradiation for tonsil cancer. Poor appetite and episodic emesis not likely related to chemotherapy at this point, but likely due to ongoing mucositis, thick phlegm, hyperactive gag reflex, and absence of taste function. Depression could be playing a role but his physical symptoms I suspect are more causative. Plan: Discontinue fentanyl patch; fill in as needed with oxycodone. We will continue 3 times per week intravenous hydration. We will start a trial of Marinol 5 mg twice daily; medical marijuana couldcertainly be used in addition. We could consider empiric steroid treatment if these are ineffective.Continue to offer emotional support in this very trying post treatment recovery phase. Chris George MD, FACP clinical coder Hematology/Oncology Section [facility] [address] Voice recognition software used for this note; please excuse traveling buyer errors. I personally reviewed past medical, surgical, family medical histories, reviewed current medications, vital signs, labs, and performed full review of systems. These are documented below the narrative for clarity and succinctness. Outpatient Medications Marked as Taking for the 04/01/19 encounter (Office Visit) with Chris George MD Medication Sig Dispense Refill ??? polyethylene glycol (Miralax) 17 gram/dose Powder Take 17 g by mouth daily. ??? fentaNYL (DURAGESIC) 25 mcg/hr Patch 72 hr Change 1 patch on the skin every 3 days. 5 patch 0 ??? guaiFENesin (ROBITUSSIN) 20 mg/mL Liquid Take 200 mg by mouth 4 times daily. Takes every 4 hourswhile awake to thin secretions ??? LORazepam (ATIVAN) 1 mg Tablet Take 1 tablet by mouth every 6 hours as needed (nausea). 30 tablet 3 ??? atorvastatin (LIPITOR) 40 mg Tablet 0 Review of Systems: Review of systems is negative for other CLEANING ATTENDANT, bone, pulmonary, cardiac, GI, , extremity, neurologic, endocrine, skin, constitutional, emotional, or functional problems. Vitals Office Visit from 04/01/2019 in Hematology/Oncology at [facility] Weight 74.8 kg (164 lb 12.8 oz) Height 188 cm (6' 2.02) BSA (Calculated - sq m) 1.98 sq meters BMI (Calculated) 21.15 Temp 36.7 ??C (98 ??F) Temp src Temporal Heart Rate 97 Heart Rate Source Right, NIBP Resp 16 BP 101/67 BP Location Right arm Patient Position Sitting SpO2 100 % Karnofsky Score 70 Body surface area is 1.98 meters squared. Wt Readings from Last 3 Encounters: 04/01/19 74.8 kg (164 lb 12.8 oz) 03/27/19 77.6 kg (171 lb) 03/25/19 76.7 kg (169 lb 3.2 oz) No results found for this or any previous visit (from the past 72 hour(s)). ++++++++++++++++++++++++++++++++++++++++++++++++++++ documented in this encounter Plan of Treatment Upcoming Encounters Date Type Specialty Care Team Description 10/04/2021 Office Visit Dermatology Tg Velasco MD [facility] [address] BL[address]HE [address]AL[address]DERMAT [place], [place] [address] (Wo rk) documented as of this encounter Visit Diagnoses Diagnosis Tonsil cancer Malignant neoplasm of tonsil Chronic nausea Nausea alone documented in this encounter Care Teams Customer Specialist Relationship Specialty Start Date End Date Gregg Garcia MD PCP - General General Internal Medicine 09/24/18 [address] [place] [address] (work) documented as of this encounter
--- OUTSIDE RECORDS SUMMARY | 2021-09-13 17:58 | XMS_ITS | Encounter Summary ---
:1975 Author Organization [facility] [place] [address] Care Team Providers Name Role Phone Gregg Garcia MD Primary Care Provider Encounter Details Date Type Department Care Team Description 04/15/2019 Notes Only Hematology/Oncology at Avani Hill MSW [facility] OFFICE OF CARE [address] [place], [place] [phone] Social History Tobacco Use Types Packs/Day Years [...] encounter Progress Notes Avani Hill MSW - 04/15/2019 11:18 AM EST Follow up with pt during hydration visit. Pt indicated he is slowly turning the corner with some improvement. He reports he is doing the best he can. Inquired how children and managing and pt indicated they were doing well. He is managing to work some limited time and is able to meet his financial obligations. Offered support. Reminded pt of MANAGER MEDIA availability and will follow for support and resources. documented in this encounter Plan of Treatment Upcoming Encounters Date Type Specialty Care Team Description 10/04/2021 Office Visit Dermatology Tg Velasco MD [facility] ER [address] D[address] [place], [place] [address] (Wo rk) documented as of this encounter Visit Diagnoses Not on filedocumented in this encounter Care Teams 3D Specialist Relationship Specialty Start Date End Date Gregg Garcia MD PCP - General General Internal Medicine 09/24/18 [address] [place] [address] documented as of this encounter
--- OUTSIDE RECORDS SUMMARY | 2021-09-13 17:58 | XMS_ITS | Encounter Summary ---
:1975 Author Organization [facility] [place] [address] Care Team Providers Name Role Phone Gregg Garcia MD Primary Care Provider Reason for Visit Reason Comments Other Hydration & supportive meds Treatment/Therapy Plan Authorization (Routine) - Closed Specialty Diagnoses / Procedures Referred By Contact Refer red To Contact Diagnoses Tonsil cancer Chris George MD [facility] Hem Onc Infusion Procedures TC PALONOSETRON HCL, 25MCG, INJECTION (ALOXI) TC APREPITANT, 1 MG, INJECTION TC CISPLATIN, POWDER OR SOLUTION, 10MG, INJECTION [address] [place] [phone] Fax: Referral ID Status Reason Start Date Expiration Date Visits Requ ested Visits Authorized [id number] Closed 12/28/2018 01/14/2020 5 5 Encounter Details Date Type Department Care Team Description 02/15/2019 Infusion Hematology Oncology at [facility] Tonsil cancer [address] [place] [phone] Social History Tobacco Use Types [...] encounter Progress Notes Licha Mcnally RN - 02/15/2019 1:00 PM EST INFUSION THERAPY ADMINISTRATION NOTES DIAGNOSIS: Tonsillar cancer REASON FOR VISIT: Hydration SUBJECTIVE: Delvin states that his mouth feels terrible and nothing tastes good to him. OBJECTIVE: Delvin is having difficulty swallowing and grimaces when taking oral fluids. IV ACCESS: PIV REACTIONS (DESCRIPTION, TIME, INTERVENTION AND EFFECTIVENESS) none ASSESSMENT: Delvin was awake, alert and tolerated treatment well. He was seen by Dr. George while receiving his hydration. PLAN: Return to clinic Monday for hydration. documented in this encounter Plan of Treatment Upcoming Encounters Date Type Specialty Care Team Description 10/04/2021 Office Visit Dermatology Tg Velasco MD [facility] ER [address] BLANCHE DALAL[address]DER[address] [place], [place] [address] (Wo rk) documented as of this encounter Visit Diagnoses Diagnosis Tonsil cancer Malignant neoplasm of tonsil documented in this encounter Administered Medications Inactive Administered Medications - up to 3 most recent administrations Medication Order MAR Action Action Date Dose Rate Site aprepitant (CINVANTI) injection Given 02/15/2019 12:12 PM EST 13 0 mg Emul 130 mg 130 mg, Intravenous, ONCE, 1 dose, On Mon02/15/19 at 1200, Alternative administration of IV push over 2 minutes is a recommendation from the target worker., Routine dexamethasone (Decadron) tablet 4 mg Given 02/15/2019 12:12 PM EST 4 mg 4 mg, Oral, ONCE, 1 dose, On Mon02/15/19 at 1200, Routine sodium chloride 0.9% infusion New Bag 02/15/2019 12:06 PM EST 1,000 mLs 500 mL/hr 1,000 mL, at 500 mL/hr, Intravenous, CONTINUOUS, Starting on Mon02/15/19 at 1200, Until Mon02/15/19 at 1359 documented in this encounter Care Teams Hand Edger Relationship Specialty Start Date End Date Gregg Garcia MD PCP - General General Internal Medicine 09/24/18 [address] [place] [address] documented as of this encounter
--- OUTSIDE RECORDS SUMMARY | 2021-09-13 17:58 | XMS_ITS | Encounter Summary ---
:1975 Author Organization [facility] [place] [address] Care Team Providers Name Role Phone Gregg Garcia MD Primary Care Provider Encounter Details Date Type Department Care Team Description 03/12/2019 Telephone Radiation Oncology at Katy Ohara RN [address] [phone] Social History Tobacco Use [...] Encounter - Katy Ohara RN - 03/12/2019 3:49 PM EST Left voice message on identifiable voice mail letting patient know that prescription for fentanyl has been sent to [facility] in [place] and approved by insurance along with brief description regarding medication action. Instructed to take his last dose of oxycontin on hand this evening andto start fentanyl tomorrow. Instructed to receive further instruction on fentanyl by calling this office back or discussing with pharmacist prior to use along with clinic contact information. documented in this encounter Plan of Treatment Upcoming Encounters Date Type Specialty Care Team Description 10/04/2021 Office Visit Dermatology Tg Velasco MD [facility] ER [address] BL[address]HE DAL[address] [place], [place] [address] (Wo rk) documented as of this encounter Visit Diagnoses Not on filedocumented in this encounter Care Teams Hub Inventory Specialist Relationship Specialty Start Date End Date Gregg Garcia MD PCP - General General Internal Medicine 09/24/18 [address] [place] [address] documented as of this encounter
--- OUTSIDE RECORDS SUMMARY | 2021-09-13 17:58 | XMS_ITS | Encounter Summary ---
:1975 Author Organization [facility] [place] [address] Care Team Providers Name Role Phone Gregg Garcia MD Primary Care Provider Encounter Details Date Type Department Care Team Description 03/04/2019 Orders Only Radiation Oncology a t [facility]ihir Vences MD [facility] [place] [phone] RADIATION ONCOLOGY [phone] [place], [place] [address] (Wo rk) Social History Tobacco [...] [facility] [place], [place] [address] (Wo rk) documented as of this encounter Visit Diagnoses Not on filedocumented in this encounter Care Teams Pigeon Fancier Relationship Specialty Start Date End Date Gregg Garcia MD PCP - General General Internal Medicine 09/24/[address] [facility] [address] [place] [address] documented as of this encounter
--- OUTSIDE RECORDS SUMMARY | 2021-09-13 17:58 | XMS_ITS | Encounter Summary ---
:1975 Author Organization [facility] [place] [address] Care Team Providers Name Role Phone Gregg Garcia MD Primary Care Provider Reason for Visit Reason Comments IV Medication Hydration and IV zofran Encounter Details Date Type Department Care Team Description 03/27/2019 Infusion Hematology Oncology at [facility] ug-induced nausea and vomiting; [facility] Tonsil cancer [address] [place] [phone] Social History Tobacco Use Types [...] Sign Reading Time Taken Comments Blood Pressure 95/56 03/27/2019 8:40 AM EST Pulse 77 03/27/2019 8:40 AM EST Temperature 36.9 ??C (98.4 ??F) 03/27/2019 8:40 AM EST Respiratory Rate 18 03/27/2019 8:40 AM EST Oxygen Saturation 100% 03/27/2019 8:40 AM EST Inhaled Oxygen Concentration - - Weight 77.6 kg (171 lb) 03/27/2019 8:40 AM EST Height 188 cm (6' 2.02) 03/27/2019 8:40 AM EST Body Mass Index 21.95 03/27/2019 8:40 AM EST documented in this encounter Progress Notes Tess Green RN - 03/27/2019 8:30 AM EST INFUSION THERAPY ADMINISTRATION NOTES DIAGNOSIS: Tonsillar cancer REASON FOR VISIT: Hydration and anti-emetic SUBJECTIVE: Delvin denies discomfort in his stomach. He does admit to mild nausea. IV zofran ordered and administered. OBJECTIVE: VSS; mild hypotension. Weight stable. IV ACCESS: PIV REACTIONS (DESCRIPTION, TIME, INTERVENTION AND EFFECTIVENESS) none ASSESSMENT: Delvin was awake, alert and tolerated treatment well. PIV discontinued prior to dismissal. PLAN: Return to clinic per routine. documented in this encounter Plan of Treatment Upcoming Encounters Date Type Specialty Care Team Description 10/04/2021 Office Visit Dermatology Tg Velasco MD [facility] DR BLANCHE DALAL[address]DER[address] [place], [place] [address] (Wo rk) documented as of this encounter Visit Diagnoses Diagnosis Drug-induced nausea and vomiting Nausea with vomiting Tonsil cancer Malignant neoplasm of tonsil documented in this encounter Administered Medications Inactive Administered Medications - up to 3 most recent administrations Medication Order MAR Action Action Date Dose Rate Site ondansetron (ZOFRAN) injection 8 mg Given 03/27/2019 9:52 AM EST 8 mg 8 mg, Intravenous, ONCE PRN, 1 dose, Starting on Mon03/27/19 at 0937, Until Mon03/27/19 at 0952, Nausea sodium chloride 0.9% infusion New Bag 03/27/2019 9:00 AM EST 1,000 mLs 500 mL/hr 1,000 mL (1 L), at 500 mL/hr, Intravenous, ONCE, 1 dose, On Mon03/27/19 at 1000 documented in this encounter Care Teams Data Analysis Assistant Relationship Specialty Start Date End Date Gregg Garcia MD PCP - General General Internal Medicine 09/24/18 [address] [place] [address] documented as of this encounter
--- OUTSIDE RECORDS SUMMARY | 2021-09-13 17:58 | XMS_ITS | Encounter Summary ---
:1975 Author Organization [facility] [place] [address] Care Team Providers Name Role Phone Gregg Garcia MD Primary Care Provider Encounter Details Date Type Department Care Team Description 04/03/2019 Clinical Support Hematology/Oncology at Mary Carmen Sanchez, Tonsil cancer [facility] [address] [place] [phone] Social History Tobacco Use Types [...] Progress Notes Mary Carmen Sanchez, RD - 04/03/2019 9:00 AM EST [facility] Follow Up Assessment Referred by: Dr. George Reason for visit: symptom management Patient Name and Diagnosis: Delvin Rosario is a 43 Y m with tonsilar cancer. This is the end of weeks 6 of concurrent chemoradiation; today is radiation fraction #26 of 35 anticipated. Switching to weekly carboplatin and paclitaxel as of 02/25 d/t grade 3 nausea and grade 2 ototoxicity. Assessment: HPI Patient Active Problem List Diagnosis Code ??? Neck mass R22.1 ??? 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 Drug-induced nausea and vomiting R11.2, T50.905A Meds: reviewed Labs: No results found for this or any previous visit (from the past 24 hour(s)). Estimated body mass index is 21.71 kg/m?? as calculated from the following: Height as of an earlier encounter on 04/03/19: 188 cm (6' 2.02). Weight as of an earlier encounter on 04/03/19: 76.7 kg (169 lb 3.2 oz). Wt Readings from Last 3 Encounters: 04/03/19 76.7 kg (169 lb 3.2 oz) 04/01/19 74.8 kg (164 lb 12.8 oz) 03/27/19 77.6 kg (171 lb) Wt Hx: UBW: 220 - 225 lbs Lost 15-20 lbs 3 mos p/t tx, platuaed off at 215 lbs in October - Nov. 205 lbs on 01/16/19 Estimated daily PO intake: Water now tastes salty, Soft solids: chx noodle soup, yogurt, canned fruit. Aiming for 2500 calories Intake: 2-3 CIB/d w/ whole milk and ice cream, 100 cals of heavy cream, and 100 chocolate syrup. Ensure Plus - 2 d, consistently. Fruit juice (V-8 splash, 110 cals) cuts it w/ water. Depends on what I have time for and what I can do d/t sleeping, working, getting to appointments. Will take an house to drink shakes. + odynophagia 4/10 scale Water: at least 3 pints/d Nutrition Support: No Has BMX, will use prn. + oxycodone 20 min p/t eating. Tastes starting to return; can taste V-8 splash and Vanilla. Bowels: working, taking softeners daily and miralax once every few days. Nutrition Diagnosis: Characteristics Severity Insufficient Energy Intake 66% of estimated intake needs by PO Unintended Weight Loss ; 23% loss total during treatment Loss of Subcutaneous Fat Loss of Muscle Mass Fluid Accumulation Diminished Functional Capacity Met with Delvin during IVF. He completed cCRT on 03/11/09. While his weight is up from Monday, this is likely d/t IVF from Monday and today. Dysgeusia, nausea, and mucositis continues to be his biggest barrier to intake. He now reports odynophagia 4/10 scale. Taking oxycodone 20 minutes before PO; discussed timing of taking pain medication 45-60 minutes before PO. He can now taste vanilla. He continues to struggle with taking PO vs. Sleep. He is taking in 2 Ensure Plus/d with 3 CIB shakes(500 cals, 15 g pro each) the aim of 2500 calories. He is getting very sick of these and this may also be some cause of nausea and vomiting. Also can't rule out depression, as his affect is clearly down. I reviewed with him high calorie blended food recipes that would be the consistency of pudding and not as sweet as Ensure. He may try those. He did voice, I should've gotten a feeding tube. Continues to take Mucinex liquid, taking 30 mls every 4, and using a syringe to take. + BSSW rinses throughout the day. + phelgm and foam secretions. Reviewed calorie needs and that they are likely to be 3000 at this particular time of treatment. Also, he will have a higher BMR from here on out for 6-12 months after completion of treatment. Nutrition Intervention: ? Increase caloric needs ? [...] Tg Velasco MD [facility] [address] [place], [place] [address] (Wo rk) documented as of this encounter Visit Diagnoses Diagnosis Tonsil cancer Malignant neoplasm of tonsil documented in this encounter Care Teams Icing Mixer Relationship Specialty Start Date End Date Gregg Garcia MD PCP - General General Internal Medicine 09/24/18 [address] [place] [address] documented as of this encounter
--- OUTSIDE RECORDS SUMMARY | 2021-09-13 17:58 | XMS_ITS | Encounter Summary ---
:1975 Author Organization [facility] [place] [address] Care Team Providers Name Role Phone Gregg Garcia MD Primary Care Provider Reason for Visit Reason Comments Chemotherapy Cycle 1, Day 1; Carbo/Taxol Treatment/Therapy Plan Authorization (Routine) - Closed Specialty Diagnoses / Procedures Referred By Contact Refer red To Contact Diagnoses Tonsil cancer Drug-induced nausea and vomiting Chris George MD [facility] Hem Onc Infusion Procedures TC PALONOSETRON HCL, 25MCG, INJECTION (ALOXI) TC APREPITANT, 1 MG, INJECTION TC PACLITAXEL, 1MG, INJ TC CARBOPLATIN, 50MG, INJECTION (PARAPLATIN) [facility] [address] [place] [address] [place] [phone] Fax: Referral ID Status Reason Start Date Expiration Date Visits Requ ested Visits Authorized [id number] Closed 02/15/2019 02/25/2020 8 8 Encounter Details Date Type Department Care Team Description 02/25/2019 Infusion Hematology Oncology at [facility] ug-induced nausea and vomiting; [facility] Tonsil cancer [address] [place] [phone] Social History Tobacco Use Types [...] Sign Reading Time Taken Comments Blood Pressure 114/71 02/25/2019 9:03 AM EST Pulse 88 02/25/2019 9:03 AM EST Temperature 36.8 ??C (98.2 ??F) 02/25/2019 9:03 AM EST Respiratory Rate 18 02/25/2019 9:03 AM EST Oxygen Saturation 100% 02/25/2019 9:03 AM EST Inhaled Oxygen Concentration - - Weight 83.6 kg (184 lb 3.2 oz) 02/25/2019 9:03 AM EST Height 188 cm (6' 2.02) 02/25/2019 9:03 AM EST Body Mass Index 23.64 02/25/2019 9:03 AM EST documented in this encounter Progress Notes Zackary Reynolds RN - 02/25/2019 9:00 AM EST INFUSION THERAPY ADMINISTRATION NOTES DIAGNOSIS: Tonsil Caner CYCLE #:1 Day 1 REASON FOR VISIT: Carbo/Taxol SUBJECTIVE Delvin states that he is having a little trouble getting enough fluids down- getting 1L NS today and scheduled for hydration on and Monday. OBJECTIVE LAB DATA: Labs from 02/21- [facility] for today's infusion, reviewed by Dr. George 02/22 IV ACCESS: PIV left hand Pre administration: Chemotherapy orders independently verified for drug name, route, and dosage per patient's height, weight and BSA by ZACKARY REYNOLDS RN & [facility] ED onsite. REACTIONS (DESCRIPTION, TIME, INTERVENTION AND EFFECTIVENESS) none ASSESSMENT Delvin was awake, alert and tolerated treatment well. PLAN Return to clinic per routine. documented in this encounter Plan of Treatment Upcoming Encounters Date Type Specialty Care Team Description 10/04/2021 Office Visit Dermatology Tg Velasco MD [facility] [address] [place], [place] [address] (Wo rk) documented as of this encounter Visit Diagnoses Diagnosis Drug-induced nausea and vomiting Nausea with vomiting Tonsil cancer Malignant neoplasm of tonsil documented in this encounter Administered Medications Inactive Administered Medications - up to 3 most recent administrations Medication Order MAR Action Action Date Dose Rate Site aprepitant (CINVANTI) injection Given 02/25/2019 9:37 AM EST 130 mg Emul 130 mg 130 mg, Intravenous, ONCE, 1 dose, On Mon02/25/19 at 0945, Alternative administration of IV push over 2 minutes is a recommendation from the renovator machine operator., Routine CARBOplatin (PARAPLATIN) 202 mg New Bag 02/25/2019 11:28 AM ES T 202 mg 540.4 mL/hr in dextrose 5% 270.2 mL chemo infusion 202 mg (rounded from 202.05 mg, Target AUC = 1.5), Intravenous, ONCE, 1 dose, On Mon02/25/19 at 1045, Administer over 30 Minutes, Hold Parameters: CARBOplatin, Call provider for serum creatinine less than (mg/dL): 0.3, Call provider for serum creatinine greater than (mg/dL): 1.5, External serum creatinine results used to calculate dose? Yes, Enter serum creatinine value (mg/dL): 1.07, Enter serum creatinine result date: 02/14/2019 dexamethasone (DECADRON) injection 10 mg Given 02/25/2019 9:36 AM EST 10 mg 10 mg, Intravenous, ONCE, 1 dose, On Mon02/25/19 at 0945, Administer 30 minutes prior to PACLitaxel diphenhydrAMINE (BENADRYL) injection 25 mg Given 02/25/2019 9:36 AM EST 25 mg 25 mg, Intravenous, ONCE, 1 dose, On Mon02/25/19 at 0945, Administer 30 minutes prior to PACLitaxel, Routine famotidine (PEPCID) injection 20 mg Given 02/25/2019 9:36 AM EST 20 mg 20 mg, Intravenous, ONCE, 1 dose, On Mon02/25/19 at 0945, Administer 30 minutes prior to PACLitaxel PACLitaxel (TAXOL) 96 mg in sodium New Bag 02/25/2019 10:19 AM EST 96 mg 266 mL/hr chloride 0.9% Non-PVC 266 mL chemo infusion 96 mg (rounded from 95.85 mg = 45 mg/m2/dose ? 2.13 m2 Treatment Plan BSA from Recorded weight), Intravenous, ONCE, 1 dose, On Mon02/25/19 at 1045, Administer over 60 Minutes, Warning Vesicant/Irritant Medication palonosetron (ALOXI) injection 0.25 mg Given 02/25/2019 9:40 AM EST 0.25 mg 0.25 mg, Intravenous, ONCE, 1 dose, On Mon02/25/19 at 0945, Administer over 30 seconds., Routine sodium chloride 0.9% infusion New Bag 02/25/2019 9:21 AM EST 1,000 mLs 500 mL/hr 1,000 mL (1 L), at 500 mL/hr, Intravenous, ONCE, 1 dose, On Mon02/25/19 at 0945 documented in this encounter Care Teams Baker Head Relationship Specialty Start Date End Date Gregg Garcia MD PCP - General General Internal Medicine 09/24/18 [address] [facility] 1 [place] [address] documented as of this encounter
--- OUTSIDE RECORDS SUMMARY | 2021-09-13 17:58 | XMS_ITS | Encounter Summary ---
:1975 Author Organization [facility] [place] [address] Care Team Providers Name Role Phone Gregg Garcia MD Primary Care Provider Encounter Details Date Type Department Care Team Description 03/25/2019 Office Visit Hematology/Oncology at Chris Fung MD Tonsil cancer [address] ONCOLOGY DEPT. [place] [phone] Social History Tobacco Use Types Packs/Day Years [...] encounter Progress Notes Chris George MD - 03/25/2019 1:00 PM EST Hematology/Oncology Clinic [facility] Patient Active Problem List Diagnosis ??? Drug-induced nausea and vomiting ??? Tonsil cancer cT1 N2 M0 p16(+), L tonsil A. Presenting with L neck mass; trivial tobacco history; small L tonsil tumor, EUA 12/10/2018: non-ker SCCa B. Definitive radiation 01/16/2019 - 03/11/2019; high dose cisplatin X 2, c/b grade 3 nausea and gr 2 ototoxcity; switch to weekly carbo+paclitaxel 02/25/2019 ??? Neck mass ONCBCN ONCOLOGY (AMB) 02/25/2019 Day, Cycle Day 1, Cycle 1 CARBOplatin (PARAPLATIN) IV 202 mg CISplatin (PLATINOL) IV PACLitaxel (TAXOL) IV 45 mg/m2/dose = 96 mg ONCN ONCOLOGY (AMB) 03/04/2019 Day, Cycle Day 8, Cycle 1 CARBOplatin (PARAPLATIN) IV 218 mg CISplatin (PLATINOL) IV PACLitaxel (TAXOL) IV 45 mg/m2/dose = [facility] 03/11/2019 Day, Cycle Day 15, Cycle 1 CARBOplatin (PARAPLATIN) IV 218 mg CISplatin (PLATINOL) IV PACLitaxel (TAXOL) IV 45 mg/m2/dose = 96 mg Med Onc checkup; completed radiation two weeks ago. Received 3 doses of carbo- paclitaxel after 2 of cisplatin. He is still having severe mucositis, grade 3. Requiring several doses of oxycodone per day in addition to a fentanyl 25 mcg patch. Oral intake is quite uncomfortable for him, and he still has no taste sensation which makes it doubly hard. He has copious thick phlegm which occasionally gags him, resulting in sudden emesis. He has been using ondansetron but this does not seem to help. All of the medications seem to be giving him constipation as well. He has MiraLAX for occasional use. 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 The symptoms have not progressed since the second dose of cisplatin. Energy level is low, KPS 80. We have been having him come into clinic for hydration and supportive care 3 times per week. Physical exam: He is accompanied by his today. He looks tired, pale, but is in no acute distress. His demeanor is quiet but not frankly depressed. Oral exam shows grade 2 erythema but the exudative mucositis on the soft palate has resolved. I am unable to see any tonsil tumor. There is no evidence of intraoral infection Neck exam shows no palpable adenopathy on either side. Skin exam in the radiation field shows very patchy dry desquamation; erythema is almost completely resolved. The lungs are clear Cardiac exam is normal Abdomen is benign, no hepatosplenomegaly or masses Extremities are normal Neurologic exam shows normal motor and sensory function, cranial nerves normal save for subjective decreased hearing; reflexes 2+. Labs: From 03/22, his white count was 4.58, hemoglobin 9.6, platelets 191; chemistry studies showed normal electrolytes, BUN 16, creatinine 0.92. Magnesium slightly low at 1.7. Impression: 2 weeks status post full dose chemoradiation for clinical T1N2P 16+ tonsil cancer, with an apparent complete response, but ongoing mucositis with pain and odynophagia. Oral nutrition and hydration are borderline adequate. Plan: Continue supportive care. I think we need to continue the thrice weekly hydration and supportive care visits through this week and next, at least. Continue current pain management. We talked about the copious thick phlegm, and agreed not to intervene pharmacologically, since drying this up mightbe more bothersome. If the secretions increase, I would consider using a portable suction pump rather than anticholinergics. Recommended that we stop the ondansetron, since this could be contributing to constipation, and he will continue to use MiraLAX freely. Follow-up next week for checkup, and obtain laboratory studies that morning. We talked about how miserable the first few weeks after chemoradiation can be, and how slow the recovery is. I assured him that the symptoms will improve, and I expect a turnaround by the end of thisweek. Chris George MD, FACP weigher operator Hematology/Oncology Section [facility]/[address] [address] Voice recognition software used for this note; please excuse systems accountant errors. I personally reviewed past medical, surgical, family medical histories, reviewed current medications, vital signs, labs, and performed full review of systems. These are documented below the narrative for clarity and succinctness. Outpatient Medications Marked as Taking for the 03/25/19 encounter (Office Visit) with Chris George MD Medication Sig Dispense Refill ??? polyethylene glycol (Miralax) 17 gram/dose Powder Take 17 g by mouth daily. ??? oxyCODONE (ROXICODONE) 10 mg Tablet 1-2 tabs every 4 hours as needed for pain 60 tablet 0 ??? fentaNYL (DURAGESIC) 25 mcg/hr Patch 72 hr Change 1 patch on the skin every 3 days. 5 patch 0 ??? emollient base (CREAM BASE TOP) [...] hours as needed (nausea). 30 tablet 3 Review of Systems: Review of systems is negative for other CIGARETTE INSPECTOR, bone, pulmonary, cardiac, GI, , extremity, neurologic, endocrine, skin, constitutional, emotional, or functional problems. Vitals Infusion from 03/25/2019 in Hematology Oncology at [facility] Weight 76.7 kg (169 lb 3.2 oz) Temp (!) 26.6 ??C (79.9 ??F) Temp src Oral Heart Rate 83 Resp 18 BP 107/64 BP Location Left arm Patient Position Sitting SpO2 100 % There is no height or weight on file to calculate BSA. Wt Readings from Last 3 Encounters: 03/25/19 76.7 kg (169 lb 3.2 oz) 03/22/19 77.7 kg (171 lb 3.2 oz) 03/20/19 77.5 kg (170 lb 12.8 oz) No results found for this or any previous visit (from the past 72 hour(s)). ++++++++++++++++++++++++++++++++++++++++++++++++++++ documented in this encounter Plan of Treatment Upcoming Encounters Date Type Specialty Care Team Description 10/04/2021 Office Visit Dermatology Tg Velasco MD [facility] [address] BLANCHE [address]ALAL[facility], [place] [address] (Wo rk) documented as of this encounter Visit Diagnoses Diagnosis Tonsil cancer Malignant neoplasm of tonsil documented in this encounter Care Teams Pipe Production Worker Relationship Specialty Start Date End Date Gregg Garcia MD PCP - General General Internal Medicine 09/24/18 [address] [facility] 1 [place] [address] documented as of this encounter
--- OUTSIDE RECORDS SUMMARY | 2021-09-13 17:58 | XMS_ITS | Encounter Summary ---
:1975 Author Organization [facility] Address [place] [id number] Care Team Providers Name Role Phone Gregg Garcia MD Primary Care Provider Encounter Details Date Type Department Care Team Description 03/13/2019 Office Visit Radiation Oncology at Mihir Martin, Tonsillar cancer Robbie SARMIENTO [address] [place] [phone] RADIATION ONCOLOGY [phone] [place] [address] (Wo rk) Social History Tobacco Use Types [...] encounter Progress Notes Mihir Vences MD - 03/13/2019 3:00 PM EST ON TREATMENT VISIT NOTE Delvin Rosario is a 43 y.o. 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 Changes in medical condition Pain: controlled by Oxycodone, Oxycontin. Transitioning to Fentanyl 25 mcg. Pain at 5-8 / 10 Secretions/Dryness: significant dysgeusia, significant xerostomia (BSS, water, Mucinex). Swallowing Function: coughing / choking / gagging Nutrition: ~ 4 ensure per day. No G tube. Aiming to 2 - 3K calories per day. Skin: no issues GI: --Constipation/Diarrhea: mild constipation, using stool softeners, Miralax --N/V: no nausea Hearing: stable increased tinnitus Nutrition Assessment: Weight : 94.5 kg initial Change: 84.4 -> 80.3 Objective: There were no vitals taken for this visit. SKIN: brisk skin erythema, patchy desquamation MUCOSA: patchy mucositis posterior OP, no [...] rinse ?? BMX ?? Mucinex ?? 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 Weight decreased slightly, all [...] Dermatology Tg Velasco MD [facility] [address] BLANCHE DALAL[facility], [place] [address] (Wo rk) documented as of this encounter Visit Diagnoses Diagnosis Tonsillar cancer Malignant neoplasm of tonsil documented in this encounter Care Teams Director Of Analytics Relationship Specialty Start Date End Date Gregg Garcia MD PCP - General General Internal Medicine 09/24/18 [address] [facility] [address] [place] [address] documented as of this encounter
--- OUTSIDE RECORDS SUMMARY | 2021-09-13 17:58 | XMS_ITS | Encounter Summary ---
:1975 Author Organization [facility] [place] [address] Care Team Providers Name Role Phone Gregg Garcia MD Primary Care Provider Encounter Details Date Type Department Care Team Description 03/27/2019 Clinical Support Hematology/Oncology at Mary Carmen Sanchez, Tonsil cancer [facility] [address] [place] [phone] Social History Tobacco Use Types [...] Progress Notes Mary Carmen Sanchez, RD - 03/27/2019 9:[address] [facility] Follow Up Assessment Referred by: Dr. George [...] 24 hour(s)). Estimated body mass index is 21.95 kg/m?? as calculated from the following: Height as of an earlier encounter on 03/27/19: 188 cm (6' 2.02). Weight as of an earlier encounter on 03/27/19: 77.6 kg (171 lb). Wt Readings from Last 3 Encounters: 03/27/19 77.6 kg (171 lb) 03/25/19 76.7 kg (169 lb 3.2 oz) 03/22/19 77.7 kg (171 lb 3.2 oz) Wt Hx: UBW: 220 [...] intake needs by PO Unintended Weight Loss Unintended Weight Loss: > 5% in 1 month; 23% loss total during treatment Loss of Subcutaneous Fat Loss of Subcutaneous Fat: Yes Orbital: Moderate Loss of Muscle Mass Loss of Muscle Mass: Yes Samaritan: Moderate Fluid Accumulation Diminished Functional Capacity Met with Delvin during IVF. He completed cCRT on 03/11/09. Dysgeusia and mucositis continues to be his biggest barrier to intake. He now reports odynophagia 4/10 scale. Taking oxycodone 20 minutes before PO; discussed timing of taking pain medication 45-60 minutes before PO. He can now taste vanilla. He is struggling in taking PO vs. Sleep. He is taking in 2 Ensure Plus/d with 3 CIB shakes (500 cals, 15 g pro each) the aim of 2500 calories. Reviewed calorie needs and that they are likely to be 3000at this particular time of treatment. Also, he will have a higher BMR from here on out for 6-12 months after completion of treatment. Offered Ensure Clear could also be beneficial. + phelgm and foam secretions. + Mucinex liquid, taking 30 mls every 4, and using a syringe to take. + BSSW rinses throughout the day. Nutrition Intervention: ? Increase caloric needs ? Modify diet consistency: ? Increase frequency of meals and snacks ? Need for supplements Nutrition Goals: Educational Handouts provided: Other Recommendations: ? Monitoring and Evaluation: Will follow up with Delvin in 2- 1 week to re-evaluate. I have provided him with my card and contact information should he have any questions in the meantime. Thank you for this consult. Mary Carmen SANCHEZ RD documented in this encounter Plan of Treatment Upcoming Encounters Date Type Specialty Care Team Description 10/04/2021 Office Visit Dermatology Tg Velasco MD [facility] DR BL[address], [place] [address] (Wo rk) documented as of this encounter Visit Diagnoses Diagnosis Tonsil cancer Malignant neoplasm of tonsil documented in this encounter Care Teams Data Sme Relationship Specialty Start Date End Date Gregg Garcia MD PCP - General General Internal Medicine 09/24/18 [address] [facility] [address] [place] [address] documented as of this encounter
--- OUTSIDE RECORDS SUMMARY | 2021-09-13 17:58 | XMS_ITS | Encounter Summary ---
:1975 Author Organization [facility] [place] [address] Care Team Providers Name Role Phone Gregg Garcia MD Primary Care Provider Encounter Details Date Type Department Care Team Description 03/08/2019 Clinical Support Hematology/Oncology at Mary Carmen Sanchez, Tonsil cancer [facility] [address] [place] [phone] Social History Tobacco Use Types [...] Progress Notes Mary Carmen Sanchez, RD - 03/08/2019 9:[address] [facility] Follow Up Assessment Referred by: Dr. [...] 24 hour(s)). Estimated body mass index is 23.13 kg/m?? as calculated from the following: Height as of 03/04/19: 188 cm (6' 2.02). Weight as of 03/07/19: 81.7 kg (180 lb 3.2 oz). Wt Readings from Last 3 Encounters: 03/07/19 81.7 kg (180 lb 3.2 oz) 03/04/19 84.4 kg (186 lb) 03/01/19 84.4 kg (186 lb) Wt Hx: UBW: 220 - 225 [...] syrup. Ensure Plus - 2 d, consistently. Water: at least 3 pints/d Nutrition Support: No Nutrition Diagnosis: Characteristics Severity Insufficient Energy Intake 66% of estimated intake needs by PO Unintended Weight Loss Unintended Weight Loss: > 2% in 1 week12.6% weightloss in 3 mos; severe; 3.2% in one week Loss of Subcutaneous Fat Loss of Muscle Mass Fluid Accumulation Diminished Functional Capacity Met with Delvin during IVF. He has surpassed the 10% weightloss gopi for g-tube and is scheduled to complete cCRT Monday,03/11/19. However, he reports that nausea has improved with antemetic regimen. Dysgeusia continues to be his biggest barrier to intake. He now reports odynophagia 5/10 scale. Does have oxycodone and will take it prn. Lorazepam, olanzapine, and zofran for nausea. Reacted to compazine and isn't able to use. He is taking in 2 Ensure Plus/d with 3 CIB shakes (500 cals, 15 g pro each) the aim of 2500 calories. Reviewed calorie needs and that they are likely to be 3000 at this particular time of treatment. Also, he will have a higher BMR from here on out for 6-12 months after completion of treatment. + phelgm and foam secretions. + Mucinex [...] Office Visit Dermatology Tg Velasco MD [facility] [address] BL[address]HE DALAL[address]DERMAT [place], [place] [address] (Wo rk) documented as of this encounter Visit Diagnoses Diagnosis Tonsil cancer Malignant neoplasm of tonsil documented in this encounter Care Teams Ecologist Relationship Specialty Start Date End Date Gregg Garcia MD PCP - General General Internal Medicine 09/24/18 [address] [facility] [address] [place] [address] documented as of this encounter
--- OUTSIDE RECORDS SUMMARY | 2021-09-13 17:58 | XMS_ITS | Encounter Summary ---
:1975 Author Organization [facility] [place] [address] Care Team Providers Name Role Phone Gregg Garcia MD Primary Care Provider Reason for Visit Reason Comments IV Medication IV hydration Encounter Details Date Type Department Care Team Description 04/17/2019 Infusion Hematology Oncology at [facility] ug-induced nausea and vomiting; [facility] Tonsil cancer [address] [place], [place] [phone] Social History Tobacco Use Types Packs/Day [...] Sign Reading Time Taken Comments Blood Pressure 109/69 04/17/2019 10:50 AM EST Pulse 68 04/17/2019 10:50 AM EST Temperature 36.4 ??C (97.6 ??F) 04/17/2019 10:50 AM EST Respiratory Rate 16 04/17/2019 10:50 AM EST Oxygen Saturation 100% 04/17/2019 10:50 AM EST Inhaled Oxygen Concentration - - Weight 76.6 kg (168 lb 12.8 oz) 04/17/2019 10:50 AM EST Height 188 cm (6' 2.02) 04/17/2019 10:50 AM copied EST Body Mass Index 21.66 04/17/2019 10:50 AM EST documented in this encounter Progress Notes Tess Green, RN - 04/17/2019 10:30 AM EST INFUSION THERAPY ADMINISTRATION NOTES DIAGNOSIS: [...] Dermatology Tg Velasco MD [facility] [address] BLANCHE DALAL[facility]DERMAT [place], [place] [address] (Wo rk) documented as of this encounter Visit Diagnoses Diagnosis Drug-induced nausea and vomiting Nausea with vomiting Tonsil cancer Malignant neoplasm of tonsil documented in this encounter Administered Medications Inactive Administered Medications - up to 3 most recent administrations Medication Order MAR Action Action Date Dose Rate Site sodium chloride 0.9% New Bag 04/17/2019 11:08 AM 1,000 mLs 500 mL /hr infusion EST 1,000 mL (1 L), at 500 mL/hr, Intravenous, ONCE, 1 dose, On Mon04/17/19 at 1115 documented in this encounter Care Teams Fraternity Adviser Relationship Specialty Start Date End Date Gregg Garcia MD PCP - General General Internal Medicine 09/24/18 [address] [facility] 1 [place] [address] documented as of this encounter
--- OUTSIDE RECORDS SUMMARY | 2021-09-13 17:58 | XMS_ITS | Encounter Summary ---
:1975 Author Organization [facility] [place] [address] Care Team Providers Name Role Phone Gregg Garcia MD Primary Care Provider Encounter Details Date Type Department Care Team Description 03/04/2019 Orders Only Radiation Oncology a t [facility] Mihir Vences MD [facility] [place] [phone] RADIATION ONCOLOGY [phone] [place], [place] [address] (Wo rk) Social History Tobacco [...] [facility] DR BLANCHE DALAL-DERMAT [facility] [place], [place] [address] (Wo rk) documented as of this encounter Visit Diagnoses Not on filedocumented in this encounter Care Teams Field Coil Winder Relationship Specialty Start Date End Date Gregg Garcia MD PCP - General General Internal Medicine 09/24/18 [address] [facility] 1 [place] [address] documented as of this encounter
--- OUTSIDE RECORDS SUMMARY | 2021-09-13 17:58 | XMS_ITS | Encounter Summary ---
:1975 Author Organization [facility] [place] [address] Care Team Providers Name Role Phone Gregg Garcia MD Primary Care Provider Reason for Visit Reason Comments Other Hydration Encounter Details Date Type Department Care Team Description 04/15/2019 Infusion Hematology Oncology at [facility] ug-induced nausea and vomiting; [facility] Tonsil cancer [address] [place], [place] [phone] Social History Tobacco Use Types Packs/Day [...] encounter Progress Notes Licha Mcnally RN - 04/15/2019 11:30 AM EST INFUSION THERAPY ADMINISTRATION NOTES DIAGNOSIS: Tonsillar cancer REASON FOR VISIT: Hydration and anti-emetic SUBJECTIVE: Delvin offers no complaints. He was seen by Dr. George today. IV ACCESS: PIV REACTIONS (DESCRIPTION, TIME, INTERVENTION AND EFFECTIVENESS) none ASSESSMENT: Delvin was awake, alert and tolerated treatment well. PIV discontinued prior to dismissal. PLAN: Return to clinic as scheduled. documented in this encounter Plan of Treatment Upcoming Encounters Date Type Specialty Care Team Description 10/04/2021 Office Visit Dermatology Tg Velasco MD [facility] [address] BLANCHE DALAL-DERMAT [place], [place] [address] (Wo rk) documented as of this encounter Visit Diagnoses Diagnosis Drug-induced nausea and vomiting Nausea with vomiting Tonsil cancer Malignant neoplasm of tonsil documented in this encounter Administered Medications Inactive Administered Medications - up to 3 most recent administrations Medication Order MAR Action Action Date Dose Rate Site ondansetron (ZOFRAN) injection 8 mg Given 04/15/2019 11:10 AM EST 8 mg 8 mg, Intravenous, ONCE PRN, 1 dose, Starting on Mon04/15/19 at 1104, Until Mon04/15/19 at 1110, Nausea sodium chloride 0.9% infusion New Bag 04/15/2019 11:10 AM EST 1,000 mLs 500 mL/hr 1,000 mL (1 L), at 500 mL/hr, Intravenous, ONCE, 1 dose, On Mon04/15/19 at 1130 documented in this encounter Care Teams Mental Health Director Relationship Specialty Start Date End Date Gregg Garcia MD PCP - General General Internal Medicine 09/24/18 [address] [place] [address] documented as of this encounter
--- OUTSIDE RECORDS SUMMARY | 2021-09-13 17:58 | XMS_ITS | Encounter Summary ---
:1975 Author Organization [facility] [place] [address] Care Team Providers Name Role Phone Gregg Garcia MD Primary Care Provider Reason for Visit Reason Comments IV Medication Hydration Encounter Details Date Type Department Care Team Description 03/20/2019 Infusion Hematology Oncology at [facility] ug-induced nausea and vomiting; [facility] Tonsil cancer [address] [place] [address] [phone] Social History Tobacco Use Types Packs/Day [...] Sign Reading Time Taken Comments Blood Pressure 103/60 03/20/2019 10:20 AM EST Pulse 98 03/20/2019 10:20 AM EST Temperature 37 ??C (98.6 ??F) 03/20/2019 10:20 AM EST Respiratory Rate 18 03/20/2019 10:20 AM EST Oxygen Saturation 98% 03/20/2019 10:20 AM EST Inhaled Oxygen Concentration - - Weight 77.5 kg (170 lb 12.8 oz) 03/20/2019 10:20 AM EST Height - - Body Mass Index 21.92 03/18/2019 10:39 AM EST documented in this encounter Progress Notes Jennifer Pineda RN - 03/20/2019 10:00 AM EST INFUSION THERAPY ADMINISTRATION NOTES DIAGNOSIS: Tonsil CA REASON FOR VISIT: Hydration SUBJECTIVE Delvin states it is still difficult to swallow and painful. OBJECTIVE IV ACCESS: PIV right hand REACTIONS (DESCRIPTION, TIME, INTERVENTION AND EFFECTIVENESS)none ASSESSMENT Delvin was awake, alert and he tolerated treatment well. PLAN Return to clinic per routine. documented in this encounter Plan of Treatment Upcoming Encounters Date Type Specialty Care Team Description 10/04/2021 Office Visit Dermatology Tg Velasco MD [facility] [address] BLANCHE DALAL-DERMAT [place], [place] [address] (Wo rk) documented as of this encounter Visit Diagnoses Diagnosis Drug-induced nausea and vomiting Nausea with vomiting Tonsil cancer Malignant neoplasm of tonsil documented in this encounter Administered Medications Inactive Administered Medications - up to 3 most recent administrations Medication Order MAR Action Action Date Dose Rate Site sodium chloride 0.9% New Bag 03/20/2019 10:18 AM 500 mL/hr 500 mL /hr infusion EST 500 mL/hr, Intravenous, CONTINUOUS, Starting on Mon03/20/19 at 1000, Until Mon03/20/19 at 1159, 1 Liter of normal saline over two hours. documented in this encounter Care Teams Bonded Structures Repairer Relationship Specialty Start Date End Date Gregg Garcia MD PCP - General General Internal Medicine 09/24/18 [address] [place] [address] documented as of this encounter
--- OUTSIDE RECORDS SUMMARY | 2021-09-13 17:58 | XMS_ITS | Encounter Summary ---
:1975 Author Organization [facility] Address [place] [id number] Care Team Providers Name Role Phone Gregg Garcia MD Primary Care Provider Encounter Details Date Type Department Care Team Description 02/20/2019 Office Visit Radiation Oncology at [facility], Malignant neoplasm of [facility] overlapping sites of [address] [place] [address] [place] [address] RADIATION ONCOLOGY [phone] [place] [address] Social History Tobacco Use Types Packs/Day Years [...] encounter Progress Notes Mihir Vences MD - 02/20/2019 10:15 AM EST ON TREATMENT VISIT NOTE Delvin Rosario is a 43 y.o. 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 Current treatment dose: 48 Gy in 24 fractions. Anticipated total dose: 70 Gy in 35 fractions. Concomitant Therapy: Y ONC BCA CHEMO (AMB) 01/16/2019 02/06/2019 Day, Cycle Day 1, Cycle 1 Day 1, Cycle 2 CISplatin (PLATINOL) IV 100 mg/m2/dose 90 mg/m2/dose Evaluation of Port Verification Films: PORT films have been reviewed, please see CHELLYA for details. Changes in medical condition Pain: increasing pain in posterior throat, 07/13. BMX ineffective, using Tylenol. Secretions/Dryness: significant dysgeusia, moderate xerostomia (BSSW, water, Mucinex). Swallowing Function: slight improvement in swallowing Nutrition: ~ 4 ensure per day. No G tube. Aiming to 2 - 3K calories per day. Skin: no issues GI: --Constipation/Diarrhea: using stool softeners, no issues. --N/V: improved nausea. Ondansetron, Lorazepam, Olanzapine Hearing: increased tinnitus Nutrition Assessment: Weight : 94.5 kg initial Change: 87.6 -> 84.6 Objective: There were no vitals filed for this visit. SKIN: no skin erythema MUCOSA: patchy mucositis posterior OP Assessment: Primary issue is increasing pain, now improved control n/v. Ongoing weight loss, not interested in Gtube. CTCAE TOXICITY GRADES (see below for hernandez): Site Grade Skin 0 Xerostomia 2 Pharyngeal Mucositis 2 Dysphagia 0 Hoarseness 0 Plan: ?? Continue RT per prescription ?? Pain control: ?? OTC medications prn ?? ADD Oxycodone ?? Skin: Jeans cream prn ?? Mucositis: ?? Pain control: see above ?? Oral hygiene consisting of baking soda/salt rinse at least 8 times daily ?? BMX ?? Mucinex ?? Alimentation: screen printer helper following ?? Weight decreased slightly, all by mouth at this time. No G tube. ?? N/V: Lorazepam, Zofran, olanzapine CTCAE v4.03 [...] Visit Dermatology Tg Velasco MD [facility] [address] BLANCHE DALAL-DERMAT [place], [place] [address] (Wo rk) documented as of this encounter Visit Diagnoses Diagnosis 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 Malignant neoplasm of tonsil documented in this encounter Care Teams Post Office Manager Relationship Specialty Start Date End Date Gregg Garcia MD PCP - General General Internal Medicine 09/24/18 [address] [place] [address] documented as of this encounter
--- OUTSIDE RECORDS SUMMARY | 2021-09-13 17:58 | XMS_ITS | Encounter Summary ---
:1975 Author Organization [facility] [address] Care Team Providers Name Role Phone Gregg Garcia MD Primary Care Provider Reason for Visit Reason Comments Other Hydration Encounter Details Date Type Department Care Team Description 03/29/2019 Infusion Hematology Oncology at [facility] ug-induced nausea and vomiting; [facility] Tonsil cancer [address] [place], [place] [phone] Social History Tobacco Use Types Packs/Day [...] encounter Progress Notes Licha Mcnally RN - 03/29/2019 8:30 AM EST INFUSION THERAPY ADMINISTRATION NOTES DIAGNOSIS: Tonsillar cancer REASON FOR VISIT: Hydration and anti-emetic SUBJECTIVE: Delvin states that he is doing better but still can't eat very much. IV ACCESS: PIV REACTIONS (DESCRIPTION, TIME, INTERVENTION AND EFFECTIVENESS) none ASSESSMENT: Delvin was awake, alert and tolerated treatment well. PIV discontinued prior to dismissal. PLAN: Return to clinic as scheduled. documented in this encounter Plan of Treatment Upcoming Encounters Date Type Specialty Care Team Description 10/04/2021 Office Visit Dermatology Tg Velasco MD [facility] [address] BLANCHE DALAL-DERMAT [place], [place] [address] (Wo rk) documented as of this encounter Visit Diagnoses Diagnosis Drug-induced nausea and vomiting Nausea with vomiting Tonsil cancer Malignant neoplasm of tonsil documented in this encounter Administered Medications Inactive Administered Medications - up to 3 most recent administrations Medication Order MAR Action Action Date Dose Rate Site ondansetron (ZOFRAN) injection 8 mg Given 03/29/2019 9:42 AM EST 8 mg 8 mg, Intravenous, ONCE PRN, 1 dose, Starting on Mon03/29/19 at 0841, Until Mon03/29/19 at 0942, Nausea sodium chloride 0.9% infusion New Bag 03/29/2019 9:30 AM EST 1,000 mLs 500 mL/hr 1,000 mL (1 L), at 500 mL/hr, Intravenous, ONCE, 1 dose, On Mon03/29/19 at 0900 documented in this encounter Care Teams Senior Information Security Analyst Relationship Specialty Start Date End Date Gregg Garcia MD PCP - General General Internal Medicine 09/24/18 [address] [place] [address] documented as of this encounter
--- OUTSIDE RECORDS SUMMARY | 2021-09-13 17:58 | XMS_ITS | Encounter Summary ---
:1975 Author Organization [facility] [place] [address] Care Team Providers Name Role Phone Gregg Garcia MD Primary Care Provider Encounter Details Date Type Department Care Team Description 03/11/2019 Telephone Radiation Oncology at Katy Ohara RN [address] [phone] Social History Tobacco Use [...] Encounter - Katy Ohara RN - 03/11/2019 5:33 PM EST Received fax notification from [facility] that they are unable to approve Oxycontin as patient has no documented failure, contraindication per FDA label or intolerance to ALL of the following: Embeda, Hysingla ER and Xtampza ER. Dr. Vences updated via [employer]. He questioned if Fentanyl would be covered. Telephone call to [facility] to inquire as to if Fentanyl would be a covered medication for this patient.Pharmacist advised that it likely would be covered but that a prescription would need to be sent andrun through system for final determination. Dr. Vences and Dr. George updated with this note. documented in this encounter Plan of Treatment Upcoming Encounters Date Type Specialty Care Team Description 10/04/2021 Office Visit Dermatology Tg Velasco MD [facility] [address] BLANCHE DALAL-DERMAT [place], [place] [address] (Wo rk) documented as of this encounter Visit Diagnoses Not on filedocumented in this encounter Care Teams Dimension Warehouse Supervisor Relationship Specialty Start Date End Date Gregg Garcia MD PCP - General General Internal Medicine 09/24/18 [address] [place] [address] documented as of this encounter
--- OUTSIDE RECORDS SUMMARY | 2021-09-13 17:58 | XMS_ITS | Encounter Summary ---
:1975 Author Organization [facility] [place] [address] Care Team Providers Name Role Phone Gregg Garcia MD Primary Care Provider Reason for Visit Reason Comments IV Medication Hydration and anti-emetic Encounter Details Date Type Department Care Team Description 03/25/2019 Infusion Hematology Oncology at [facility] ug-induced nausea and vomiting; [facility] Tonsil cancer [address] [place] [phone] Social History Tobacco Use Types [...] Sign Reading Time Taken Comments Blood Pressure 107/64 03/25/2019 8:35 AM EST Pulse 83 03/25/2019 8:35 AM EST Temperature 26.6 ??C (79.9 ??F) 03/25/2019 8:35 AM EST Respiratory Rate 18 03/25/2019 8:35 AM EST Oxygen Saturation 100% 03/25/2019 8:35 AM EST Inhaled Oxygen Concentration - - Weight 76.7 kg (169 lb 3.2 oz) 03/25/2019 8:35 AM EST Height - - Body Mass Index 21.71 03/18/2019 10:39 AM EST documented in this encounter Progress Notes Tess Green RN - 03/25/2019 8:30 AM EST INFUSION THERAPY ADMINISTRATION NOTES DIAGNOSIS: Tonsillar cancer REASON FOR VISIT: Hydration and anti-emetic SUBJECTIVE: Delvin has some discomfort in his stomach. He does admit to mild nausea. OBJECTIVE: VSS. Seen by Dr. George IV ACCESS: PIV REACTIONS (DESCRIPTION, TIME, INTERVENTION AND EFFECTIVENESS) none ASSESSMENT: Delvin was awake, alert and tolerated treatment well. PIV discontinued prior to dismissal. PLAN: Return to clinic per routine. documented in this encounter Plan of Treatment Upcoming Encounters Date Type Specialty Care Team Description 10/04/2021 Office Visit Dermatology Tg Velasco MD [facility] DR BL[address]HE DAL[address] [place], [place] [address] (Wo rk) documented as of this encounter Visit Diagnoses Diagnosis Drug-induced nausea and vomiting Nausea with vomiting Tonsil cancer Malignant neoplasm of tonsil documented in this encounter Administered Medications Inactive Administered Medications - up to 3 most recent administrations Medication Order MAR Action Action Date Dose Rate Site ondansetron (ZOFRAN) injection 8 mg Given 03/25/2019 8:54 AM EST 8 mg 8 mg, Intravenous, ONCE PRN, 1 dose, Starting on Mon03/25/19 at 0836, Until Mon03/25/19 at 0854, Nausea sodium chloride 0.9% infusion New Bag 03/25/2019 8:50 AM EST 1,000 mLs 500 mL/hr 1,000 mL (1 L), at 500 mL/hr, Intravenous, ONCE, 1 dose, On Mon03/25/19 at 0900 documented in this encounter Care Teams Slat Basket Maker Helper Relationship Specialty Start Date End Date Gregg Garcia MD PCP - General General Internal Medicine 09/24/1812/03/[address] [facility] [place] [address] documented as of this encounter
--- OUTSIDE RECORDS SUMMARY | 2021-09-13 17:59 | XMS_ITS | Encounter Summary ---
:1975 Author Organization [facility] [place] [address] Care Team Providers Name Role Phone Gregg Garcia MD Primary Care Provider Encounter Details Date Type Department Care Team Description 01/04[facility] ONCOLOGY DEPT. [place], [place] [phone] Social History Tobacco Use Types Packs/Day Years [...] Sign Reading Time Taken Comments Blood Pressure 120/80 01/04/2019 10:24 AM EDT Pulse 58 01/04/2019 10:24 AM EDT Temperature 36.7 ??C (98.1 ??F) 01/04/2019 10:24 AM EDT Respiratory Rate 16 01/04/2019 10:24 AM EDT Oxygen Saturation 100% 01/04/2019 10:24 AM EDT Inhaled Oxygen Concentration - - Weight 96.6 kg (213 lb) 01/04/2019 10:24 AM EDT Height 188 cm (6' 2) 01/04/2019 10:24 AM EDT Body Mass Index 27.35 01/04/2019 10:24 AM EDT documented in this encounter Progress Notes Chris George MD - 01/04/2019 10:15 AM EDT Head and Neck Cancer Medical Oncology Patient Active Problem List Diagnosis ??? Tonsil cancer cT1 N2 M0 p16(+), L tonsil ??? Neck mass Brandon returns for a prechemotherapy checkup. Since my last visit with him he has had a dental checkup, and has been cleared for radiotherapy. He continues to have a numb sensation under the chin, and intermittent paresthesias along the left neck and head, up to the midline scalp. He also notes slowly increasing dysphagia. He has to take more water with meals. His weight has been stable however. He has had no symptoms that would suggest metastatic disease. Radiation simulation was done on 01/02/2019. Review of systems is again noncontributory. His KPS is 100. He still working and wishes to keep working as long as possible during treatment; he is talked to his workplace about anticipated time off during chemoradiotherapy. Physical exam: He looks well, in good spirits Cranial nerves are normal. Oral exam shows subtle fullness of the left tonsil as before. Tongue is mobile. No halitosis Lymph node exam shows a roughly 3.5 cm node mass in left zone 2, partially mobile. Pressure here does not elicit any radicular symptoms. The lungs are clear Cardiac exam is normal Abdomen is benign with no hepatosplenomegaly or masses Extremities are normal with no clubbing cyanosis or edema Motor and sensory function are normal save for symptomatic decreased light touch sensation under thechin and down the anterior neck; I cannot really lateralize this symptom. Radiographs: I re-reviewed his prior MRI and PET/CT, and reviewed the radiation planning CT. The left tonsil tumor is subtle but visible, as is the left parapharyngeal node. Right and left neck adenopathy is visible in zones 2 and 3, and in zone 1B bilaterally. There is no obvious cervical spine pathology to explain any of his referred paresthesias symptoms. Labs: To be drawn after today's visit. Impression: 43-year-old never smoker with a small P 16+ left tonsil squamous cell carcinoma, presenting with left neck adenopathy. Regional neuritic symptoms likely due to the extracapsular extension of his node mass on sensory branches of the regional nerve dermatomes. Plan: Proceed with standard high-dose cisplatin with appropriate supportive care, given at 100 mg/m?? every 3 weeks. We will have him return in late in each treatment week for additional hydration and anti-medics, and monitor closely for signs and symptoms of chemotherapy toxicity. We again reviewed the potential side effects of this regimen and he wishes to proceed. We will use peripheral IV access,considering a Mediport if this becomes problematic. Similarly, he would like to get through treatment without a gastric tube and we will have him follow closely with our nutritional health coach during therapy. Chris George MD, FACP supervisor taping Hematology/[place] [address] Voice recognition software used for this note; please excuse music engineer errors. I personally reviewed past medical, surgical, family medical histories, reviewed current medications, vital signs, labs, and performed full review of systems. These are documented below the narrative for clarity and succinctness. Outpatient Medications Marked as Taking for the 01/04/19 encounter (Office Visit) with Chris George MD Medication Sig Dispense Refill ??? cholecalciferol, Vitamin D3, 1,000 unit Tablet Take 1,000 Units by mouth daily. ??? atorvastatin (LIPITOR) 40 mg Tablet 0 ??? multivitamin (THERAGRAN) Tablet Take 1 tablet by mouth daily. ??? ubidecarenone (COENZYME Q10) 100 mg Tablet Take by mouth daily. Review of Systems: Review of systems is negative for other LAB AID, bone, pulmonary, cardiac, GI, , extremity, neurologic, endocrine, skin, constitutional, emotional, or functional problems. Vitals Office Visit from 01/04/2019 in Hematology/Oncology at [facility] Weight 96.6 kg (213 lb) Height 188 cm (6' 2) BSA (Calculated - sq m) 2.25 sq meters BMI (Calculated) 27.34 Temp 36.7 ??C (98.1 ??F) Temp src Oral Heart Rate 58 Heart Rate Source Right, NIBP Resp 16 BP 120/80 Patient Position Sitting SpO2 100 % Karnofsky Score 100 Body surface area is 2.25 meters squared. Wt Readings from Last 3 Encounters: 01/04/19 96.6 kg (213 lb) 12/27/18 96.6 kg (213 lb) 12/18/18 96.5 kg (212 lb 12.8 oz) No results found for this or any previous visit (from the past 72 hour(s)). ++++++++++++++++++++++++++++++++++++++++++++++++++++ documented in this encounter Miscellaneous Notes Addendum Note - Chris George MD - 01/04/2019 10:15 AM EDT Addended by: CHRIS GEORGE on: 01/04/2019 02:26 PM Modules accepted: Orders documented in this encounter Plan of Treatment Upcoming Encounters Date Type Specialty Care Team Description 10/04/2021 Office Visit Dermatology Tg Velasco MD [facility] [address] BLANCHE DALAL-DERMAT [place], [place] [address] (Wo rk) documented as of this encounter Visit Diagnoses Diagnosis Tonsil cancer Malignant neoplasm of tonsil documented in this encounter Care Teams Land Development Manager Relationship Specialty Start Date End Date Gregg Garcia MD PCP - General General Internal Medicine 09/24/[address] [place] [address] documented as of this encounter
--- OUTSIDE RECORDS SUMMARY | 2021-09-13 17:59 | XMS_ITS | Encounter Summary ---
:1975 Author Organization [facility] [place] [address] Care Team Providers Name Role Phone Gregg Garcia MD Primary Care Provider Encounter Details Date Type Department Care Team Description 12/27/2018 Notes Only Hematology and Oncology [place] [address] Social History Tobacco Use Types Packs/Day [...] documented as of this encounter Progress Notes Tg Roblero RN - 12/27/2018 12:32 PM EDT [facility] Nurse Navigation Patient Care Plan Met with 43 yo Delvin Rosario, who has a diagnosis of tonsil cancer with bilateral neck lymphadenopathy, to assess for nurse navigation services. Not a good surgical candidate r/t retropharyngeal node; definitive chemo RT recommended. Present during the latter part of this interview is spouse, Shena. Symptoms began about 2 years ago, but CT scan not remarkable for disease at that time. Delvin reports head aches and numbness of the central upper neck. He has experienced dysphagia since this past summer. Previous tobacco use, but quit 20 years ago. Occasional ETOH use (1-2 drinks per week). No tinnitus, numbness, or tingling at baseline. Delvin reports going to dentist approximately one month ago. Discussed relevance of dental clearance prior to start of radiation. Patient reports remorse regarding loss of hoffman hair. Denies any hx of mental illness. Enjoys music and downhill skiing. Shena is a grades 6 through 8 teacher. 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 He is on the phone a lot, so voice preservation is important to him. Delvin lives with and two children (2 yo in child development professor; 5 year old in Kindergarten). Delvin???s parents, brother, and LYNN are local. He feels health insurance is adequate and finances are relatively stable. Transportation is not a concern. Reviewed general timeline of both definitive and surgery with adjuvant treatment, emphasizing the importance of early dental extractions, if needed. Also discussed long-term follow up schedule. Patientwould prefer [facility]; [place] is second alternative. PLAN: ??? Definitive chemoRT with high-dose cisplatin ??? NO mediport or prophylactic feeding tube Nurse Navigator Assessment Potential or realized barriers to treatment include: Insurance / Financial Concerns: Information/ Resources, No Insurance/Financial or Practical Concernsat This Time Physical Health Concerns: Difficulty Eating or Swallowing Social / Communication / Cultural Support: No Social/ Communication/Cultural Concerns Supportive Services: No Referrals at this Time Appointments Scheduled / Pending with Dates If Known: No Appointments Needed at this Time Treatment Compliance Issues: No Treatment Compliance Issues Patient will not be followed closely by Oncology Nurse Navigation at this time. Please contact me should the patient present with future barriers that require Navigation support. Head and Neck OncologyNurse Navigator is Tg Roblero RN, BSN (pager [phone]). documented in this encounter Plan of Treatment Upcoming Encounters Date Type Specialty Care Team Description 10/04/2021 Office Visit Dermatology Tg Velasco MD [facility] [address] [facility] DALAL[facility]DERMAT [place], [place] [address] (Wo rk) documented as of this encounter Visit Diagnoses Not on filedocumented in this encounter Care Teams Tile Classifier Relationship Specialty Start Date End Date Gregg Garcia MD PCP - General General Internal Medicine 09/24/18 [address] [facility] 1 [place] [address] documented as of this encounter
--- OUTSIDE RECORDS SUMMARY | 2021-09-13 17:59 | XMS_ITS | Encounter Summary ---
:1975 Author Organization [facility] [place] [address] Care Team Providers Name Role Phone Gregg Garcia MD Primary Care Provider Encounter Details Date Type Department Care Team Description 01/16/2019 Office Visit Radiation Oncology at Mihir Vences MD Tonsil cancer [address] RADIATION ONCOLOGY [place] [phone] Social History Tobacco Use Types Packs/Day Years [...] encounter Progress Notes Mihir Vences MD - 01/16/2019 2:30 PM EST ON TREATMENT VISIT NOTE Delvin Rosario is a 43 y.o. 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 Current treatment dose: 2 Gy in 1 fractions. Anticipated total dose: 70 Gy in 35 fractions. Concomitant Therapy: Y ONC BCA CHEMO (AMB) 01/16/2019 Day, Cycle Day 1, Cycle 1 CISplatin (PLATINOL) IV 100 mg/m2/dose Evaluation of Port Verification Films: PORT films have been reviewed, please see RUBI for details. Changes in medical condition Pain: Denies Secretions/Dryness: No issues Swallowing Function: mild dysphagia at baseline Skin: no issues Nutrition Assessment: Weight : 94.5 kg initial Change: NA Objective: There were no vitals filed for this visit. SKIN: no skin erythema MUCOSA: no mucositis Assessment: No toxicity, treatment started within the last week. CTCAE TOXICITY GRADES (see below for hernandez): Site Grade Skin 0 Xerostomia 0 Pharyngeal Mucositis 0 Dysphagia 0 Hoarseness 0 TREATMENT RESPONSE: No change Plan: ?? Continue RT per prescription ?? Pain control: none needed at this time ?? Skin: Jeans cream prn ?? Mucositis: ?? Pain control: see above ?? Oral hygiene consisting of baking soda/salt rinse at least 8 times daily ?? Alimentation: consultant intern following ?? Weight stable, all by mouth at this time CTCAE v4.03 scales for reference Skin 0 [...] Dermatology Tg Velasco MD [facility] [address] BL[facility]HE DALAL[facility]DERMAT [place], [place] [address] (Wo rk) documented as of this encounter Visit Diagnoses Diagnosis Tonsil cancer Malignant neoplasm of tonsil documented in this encounter Care Teams Corporate Legal Assistant Relationship Specialty Start Date End Date Gregg Garcia MD PCP - General General Internal Medicine 09/24/18 [address] [address] [place] [address] documented as of this encounter
--- OUTSIDE RECORDS SUMMARY | 2021-09-13 17:59 | XMS_ITS | Encounter Summary ---
:1975 Author Organization [facility] [place] [address] Care Team Providers Name Role Phone Gregg Garcia MD Primary Care Provider Reason for Visit Reason Comments IV Medication Hydration and anti-emetics Treatment/Therapy Plan Authorization (Routine) - Closed Specialty Diagnoses / Procedures Referred By Contact Refer red To Contact Diagnoses Tonsil cancer Chris George MD [facility] Hem Onc Infusion Procedures TC PALONOSETRON HCL, 25MCG, INJECTION (ALOXI) TC APREPITANT, 1 MG, INJECTION TC CISPLATIN, POWDER OR SOLUTION, 10MG, INJECTION [facility] [address] [place] [address] [place] [phone] Fax: Referral ID Status Reason Start Date Expiration Date Visits Requ ested Visits Authorized [id number] Closed 12/28/2018 01/14/2020 5 5 Encounter Details Date Type Department Care Team Description 01/18/2019 Infusion Hematology Oncology at [facility] Tonsil cancer [address] [place] [phone] Social History Tobacco Use Types [...] Sign Reading Time Taken Comments Blood Pressure 119/63 01/18/2019 8:14 AM EST Pulse 60 01/18/2019 8:14 AM EST Temperature 36.7 ??C (98.1 ??F) 01/18/2019 8:14 AM EST Respiratory Rate 16 01/18/2019 8:14 AM EST Oxygen Saturation 97% 01/18/2019 8:14 AM EST Inhaled Oxygen Concentration - - Weight 93.4 kg (206 lb) 01/18/2019 8:14 AM EST Height 188 cm (6' 2.02) 01/18/2019 8:14 AM EST copied Body Mass Index 26.44 01/18/2019 8:14 AM EST documented in this encounter Progress Notes Tess Green RN - 01/18/2019 8:00 AM EST INFUSION THERAPY ADMINISTRATION NOTES DIAGNOSIS: Tonsillar cancer REASON FOR VISIT: Hydration and anti-emetics SUBJECTIVE: Delvin offers that he feels generally unwell. Nothing specific. Denies pain and nausea is controlled with anti-emetics. OBJECTIVE: VSS. Weight stable. IV ACCESS: PIV REACTIONS (DESCRIPTION, TIME, INTERVENTION AND EFFECTIVENESS) none ASSESSMENT: Delvin was awake, alert and tolerated treatment well. PIV discontinued prior to dismissal. PLAN: Return to clinic per routine. documented in this encounter Plan of Treatment Upcoming Encounters Date Type Specialty Care Team Description 10/04/2021 Office Visit Dermatology Tg Velasco MD [facility] [address] BL[facility]HE [facility]ALAL[facility] [place], [place] [address] (Wo rk) documented as of this encounter Visit Diagnoses Diagnosis Tonsil cancer Malignant neoplasm of tonsil documented in this encounter Administered Medications Inactive Administered Medications - up to 3 most recent administrations Medication Order MAR Action Action Date Dose Rate Site dexamethasone (DECADRON) tablet 10 Given 01/18/2019 8:53 AM EST 10 mg mg 10 mg, Oral, ONCE, 1 dose, On Mon01/18/19 at 0845, Routine palonosetron (ALOXI) injection 0.25 mg Given 01/18/2019 8:54 AM EST 0.25 mg 0.25 mg, Intravenous, ONCE, 1 dose, On Mon01/18/19 at 0900, Administer over 30 seconds., Routine sodium chloride 0.9% infusion New Bag 01/18/2019 8:35 AM EST 1,000 mLs 500 mL/hr 1,000 mL, at 500 mL/hr, Intravenous, CONTINUOUS, Starting on Mon01/18/19 at 0845, Until Mon01/18/19 at 1044 documented in this encounter Care Teams Compensation And Benefits Manager Relationship Specialty Start Date End Date Gregg Garcia MD PCP - General General Internal Medicine 09/24/18 [address] [place] [address] documented as of this encounter
--- OUTSIDE RECORDS SUMMARY | 2021-09-13 17:59 | XMS_ITS | Encounter Summary ---
:1975 Author Organization [facility] [place] [address] Care Team Providers Name Role Phone Gregg Garcia MD Primary Care Provider Encounter Details Date Type Department Care Team Description 01/10/2019 Telephone Radiation Oncology a t [facility] Queenie Koenig [address] [phone] Social History Tobacco Use [...] [facility] [address] BLANCHE DALAL[facility]DER[address] [place], [place] [address] (Wo rk) documented as of this encounter Visit Diagnoses Not on filedocumented in this encounter Care Teams Line Cleaner Relationship Specialty Start Date End Date Gregg Garcia MD PCP - General General Internal Medicine 09/24/18 [address] [place] [address] documented as of this encounter
--- OUTSIDE RECORDS SUMMARY | 2021-09-13 17:59 | XMS_ITS | Encounter Summary ---
:1975 Author Organization [facility] [place] [address] Care Team Providers Name Role Phone Gregg Garcia MD Primary Care Provider Encounter Details Date Type Department Care Team Description 02/04/2019 [facility] [address] [phone] Social History Tobacco Use [...] 10/04/2021 Office Visit Dermatology Tg Velasco MD [facility] [address] [place], [place] [address] (Wo rk) documented as of this encounter Visit Diagnoses Diagnosis Tonsil cancer Malignant neoplasm of tonsil documented in this encounter Care Teams Engineering Designer Relationship Specialty Start Date End Date Gregg Garcia MD PCP - General General Internal Medicine 09/24/18 [address] [place] [address] documented as of this encounter
--- OUTSIDE RECORDS SUMMARY | 2021-09-13 17:59 | XMS_ITS | Encounter Summary ---
:1975 Author Organization [facility] [address] Care Team Providers Name Role Phone Gregg Garcia MD Primary Care Provider Reason for Visit Consultation (Routine) - Closed Specialty Diagnoses / Procedures Referred By Contact Refer red To Contact Radiation Oncology Diagnoses Tonsil cancer Mihir Vences MD [facility] Rad Onc Office Procedures Simulation for Radiation Therapy Planning PRG RADIATION THERAPY PLAN COMPLEX PRG SPECIAL RADIATION TREATMENT PRG RADIATION TREATMENT AID(S) COMPLX CHG RADN PHYSICS CONSULT SPECIAL PRG INTEN MOD RADIOTHER PLAN W/DOSE VOL HIST [facility] [address] [facility] PRG RESPIRATORY MOTION MANAG EMENT PLANNING PRG MLC DEVICE INTENSTY MODUL RAD TX DSIGN/CONSTRCT PER IMRT PRG BASIC RADIATION DOSIMETRY CALCULATION PRG BASIC RADIATION DOSIMETRY CALCULATION PRO INTRA-FRACTION LOC & TRACKING TARGET, EA FRACTION RADIATION ONCOLOGY [place], [place] PRG CT GUIDE FOR PLACEMENT O F RADIATION THERAPY KAUR CHG RADN PHYSICS CONSULT CONTINUING PRG RADIATION MANAGEMENT, 5 TREATMENTS RADIOLOGY PORT FILM(S) [address] [place] [phone] Fax: Referral ID Status Reason Start Date Expiration Date Visits V isits Requested Authorized [id number] Closed Consult, 01/02/2019 05/06/2019 1 1 Test & Treat Encounter Details Date Type Department Care Team Description 01/02/2019 Ancillary Appointment Radiation Oncology at Sophia Vences [facility] [place] MD [address] [place] [address] RADIATION ONCOLOGY [phone] [place], [place] [address] Social History Tobacco Use Types [...] Sign Reading Time Taken Comments Blood Pressure 115/74 01/02/2019 7:51 AM EDT Pulse 75 01/02/2019 7:51 AM EDT Temperature - - Respiratory Rate - - Oxygen Saturation 97% 01/02/2019 7:51 AM EDT Inhaled Oxygen Concentration - - Weight - - Height - - Body Mass Index - - documented in this encounter Progress Notes Deanna Hall, RN - 01/02/2019 8:30 AM EDT Section of Radiation Oncology Contrast Information Safety Questions 1. Has the patient ever had an x-ray study before which involved injection of a contrast agent or x-ray dye? yes If yes, did the patient have any reaction to the injection? no If yes, please describe the reaction: 2. Is the patient allergic to any foods, medicines, or other substances? yes Allergies Allergen Reactions ??? Magnesium Salicylate Rash 3. Has the patient received any contrast within the past 48 hours? no 4. Does the patient have any procedures scheduled in the next 48 hours? no 5. Does the patient have a history of renal/kidney problems or kidney surgery? no 6. Does the patient have diabetes? no 7. Does the patient have high blood pressure? no 8. Is the patient currently being treated for gout? no 9. If the answer to any of the questions #5-8 was yes, has the patient had a creatinine level drawn within the past 45 days? yes If no, when will it be drawn? Drawn 12/31/18 Creatinine 1.04 GFR >=60.00 A creatinine less than or equal to 1.6 and a eGFR of 45 or greater OK to proceed with IV contrast. If the creatinine is greater than 1.6 and the eGFR is less than 45, consult with the ordering provider. If an eGFR is less than 30, IV contrast should not be administered and another contrast agent may beordered by the provider (Visipaque). 10. Is the patient currently taking any of the following medications? (Actoplus Met, Avandamet, Glucovance, Janumet, Jendadueto, Kombiglyze, Metaglip, PrandiMet, Glugophage, Glumetza, Riomet, Metformin) [x} No If yes, when was last dose taken? 9. If patient is on any of the medications in question #10, consult with the ordering provider if the patient needs to stop the medication and if they will require further lab studies. Mihir Vences MD - 01/02/2019 8:30 AM EDT Simulation was performed in anticipation of radiotherapy for squamous cell carcinoma of the head andneck. The consent was reviewed with the physician and signed by both the patient and physician. An intravenous line was placed in anticipation of contrast administration. The patient was then brought to the simulation room and a time-out was performed per protocol. he was then placed on the simulationtable and a custom cushion was constructed for his neck. A custom aquaplast mask was then created. The simulation CT scan was performed with contrast, images were reviewed and approved by the physician, and tattoos were created by the therapy staff as indicated. The patient tolerated the procedure without difficulty, and was given a time to return to start radiotherapy. documented in this encounter Plan of Treatment Upcoming Encounters Date Type Specialty Care Team Description 10/04/2021 Office Visit Dermatology Tg Velasco MD [facility] [address] [place], [place] [address] (Wo rk) documented as of this encounter Visit Diagnoses Not on filedocumented in this encounter Care Teams Technical Assistance Consultant Relationship Specialty Start Date End Date Gregg Garcia MD PCP - General General Internal Medicine 09/24/18 [address] [place] [address] documented as of this encounter
--- OUTSIDE RECORDS SUMMARY | 2021-09-13 17:59 | XMS_ITS | Encounter Summary ---
:1975 Author Organization [place] [address] Care Team Providers Name Role Phone Gregg Garcia MD Primary Care Provider Encounter Details Date Type Department Care Team Description 12/31/2018 Telephone Radiation Oncology a t [facility] Queenie Koenig [address] [phone] Social History Tobacco Use [...] [facility] [address] BL[address]HE DALAL[facility]DERMAT [place], [place] [address] (Wo rk) documented as of this encounter Visit Diagnoses Not on filedocumented in this encounter Care Teams Dipping Machine Operator Relationship Specialty Start Date End Date Gregg Garcia MD PCP - General General Internal Medicine 09/24/18 [address] [place] [address] documented as of this encounter
--- OUTSIDE RECORDS SUMMARY | 2021-09-13 17:59 | XMS_ITS | Encounter Summary ---
:1975 Author Organization [facility] [place] [address] Care Team Providers Name Role Phone Gregg Garcia MD Primary Care Provider Encounter Details Date Type Department Care Team Description 12/11/2018 Telephone Otolaryngology at [facility] [place] [phone] Social History Tobacco Use Types Packs/Day [...] [facility] [address] BLANCHE DALAL[address]DERMAT [place], [place] [address] (Wo rk) documented as of this encounter Visit Diagnoses Not on filedocumented in this encounter Care Teams Social Services Designee Relationship Specialty Start Date End Date Gregg Garcia MD PCP - General General Internal Medicine 09/24/18 [address] [place] [address] documented as of this encounter
--- OUTSIDE RECORDS SUMMARY | 2021-09-13 17:59 | XMS_ITS | Encounter Summary ---
:1975 Author Organization [facility] [place] [address] Care Team Providers Name Role Phone Gregg Garcia MD Primary Care Provider Encounter Details Date Type Department Care Team Description 02/08/2019 Office Visit Hematology/Oncology Chris George, Tons il cancer; at [facility] Intractable vomiting with nausea, unspec ified vomiting type [address] [place] [address] ONCOLOGY DEPT. [phone] [place] [id number] Social History Tobacco Use Types Packs/Day Years [...] encounter Progress Notes Chris George MD - 02/08/2019 9:30 AM EST Hematology/Oncology Clinic [facility], [facility] Patient Active Problem List Diagnosis ??? Tonsil cancer cT1 N2 M0 p16(+), L tonsil A. Presenting with L neck mass; trivial tobacco history; small L tonsil tumor, EUA 12/10/2018: non-ker SCCa B. Definitive radiation with high dose cisplatin 01/16/2019- ??? Neck mass ONCBCN ONCOLOGY (AMB) 01/16/2019 02/06/2019 Day, Cycle Day 1, Cycle 1 Day 1, Cycle 2 CISplatin (PLATINOL) IV 100 mg/m2/dose = 224 mg 90 mg/m2/dose = 202 mg Patient was seen today in his hospital room at [facility], in place of his scheduled clinic visit. He was admitted yesterday for dehydration, nausea and vomiting, increased lactate, in the setting of poor oral intake and a sense of feverishness, lassitude, and uncontrolled nausea following chemotherapy yeste rd morning. This was his second cycle of cisplatin, and because of prior trouble with nausea we had decreased the dose to 90 mg/m??. We have stopped prochlorperazine because of the apparent side effect of restlessness, and substituted ondansetron and nighttime lorazepam. His relates that he hadnot been feeling very well in the 3 days prior to chemotherapy, decreased oral intake; in the evening after chemotherapy he felt flushed, fevers, with a temperature of about 100.4, and was unable to take in much food or fluids yesterday. After is discussing the situation with his we recommended ev aluation in the [facility] emergency room. There, his vital signs were normal but he looked ill, and was found to have an elevated serum lactate of 2.4. Imaging studies included a CT of the neck without contrast and the chest x-ray, neither which showed evidence of overt infection; the bilateral lymphadenopathy in the neck, not surprisingly, was still present but there is no sign of an abscess. The emergency room staff discussed the case with the on-call heme-onc fellow, and jointly we decided that admission was the safest route. Overnight he has been getting intravenous hydration. Blood cultures and urine cultures were drawn, but so far have shown no growth. His laboratory studies showed mild renal dysfunction, and slightly elevated lactate but by this morning this is returned to normal. Prior to admission, he endorses slowly progressive throat discomfort and increasing dysphagia. His taste buds are completely gone. Food is on interesting, and he admits that his oral intake has slipped. He has not had any trouble with peripheral neuropathy or ototoxicity, but does note that his hair has been thinning out. Physical exam: He looks comfortable, sitting in hospital bed, with his at the bedside. He is alert and conversant. Peripheral IV is infusing normal saline at 150 mL's per hour. Oral exam shows grade 1 mucositis along the edge of the soft palate. Tonsil tumor is no longer visible. The tongue is mobile. There is no halitosis. Neck exam is now negative for palpable adenopathy. He has grade 1 anterior neck edema. The chest is clear Cardiac exam is normal Abdomen is benign, no hepatosplenomegaly or masses. Extremities are without cyanosis or edema Neurologic function is grossly normal, including cranial nerves. Labs: This morning's white count is 3.3, ANC 2230, hemoglobin 12.7, platelets down to 118. Chemistrypanel shows a normal sodium and potassium, creatinine that was elevated yesterday at 1.4 to back down to 1.09, and low normal calcium, magnesium of 1.9; yesterday's lactate of 2.8 has fallen down to 0.7 as of this morning. By report, CT of the neck shows lymphadenopathy bilaterally, and supraglottic fullness which could represent edema. Chest x-ray showed no pathology. Impression: P 16+ tonsil cancer with palpable left neck adenopathy, responding to treatment, which unfortunately has been associated with grade 3 nausea, secondary dehydration, mild lactic acidosis, and concern for possible infection all of which necessitated admission to hospital. He is improved withfluids. I think this can all be attributed to the toxic effects of cisplatin chemotherapy, in combination with increasing local radiotherapy toxicity, specifically progressive loss of taste which makesfood and fluids unappealing to him. Plan: [facility] medicine plans to discharge him today when the blood culture report comes back with no growth. I plan to add dexamethasone 4 mg p.o. daily to help with nausea, and possibly to boosthis appetite. We will increase the postchemotherapy hydration to twice per week for the remainder oftreatment. He will be due for chemotherapy again in 3 weeks; we will decide closer to that date whether to proceed, reduce the dose further, or halt chemotherapy altogether. Chris George MD, FACP process control operator Hematology/Oncology Section [facility]/[address] [address] Voice recognition software used for this note; please excuse chronic disease manager errors. I personally reviewed past medical, surgical, family medical histories, reviewed current medications, vital signs, labs, and performed full review of systems. These are documented below the narrative for clarity and succinctness. No outpatient medications have been marked as taking for the 02/08/19 encounter (Office Visit) with Chris George MD. Review of Systems: Review of systems is negative for other [facility], bone, pulmonary, cardiac, GI, , extremity, neurologic, endocrine, skin, constitutional, emotional, or functional problems. Vitals Infusion from 02/06/2019 in Hematology Oncology at [facility] Weight 89 kg (196 lb 3.2 oz) Height 188 cm (6' 2.02) BSA (Calculated - sq m) 2.16 sq meters BMI (Calculated) 25.18 Temp 36.8 ??C (98.2 ??F) Temp src Oral Heart Rate 77 Heart Rate Source NIBP Resp 18 BP 98/61 BP Location Right arm Patient Position Sitting SpO2 99 % There is no height or weight on file to calculate BSA. Wt Readings from Last 3 Encounters: 02/06/19 89 kg (196 lb 3.2 oz) 02/05/19 89.4 kg (197 lb 3.2 oz) 02/01/19 91.2 kg (201 lb) No results found for this or any previous visit (from the past 72 hour(s)). ++++++++++++++++++++++++++++++++++++++++++++++++++++ documented in this encounter Plan of Treatment Upcoming Encounters Date Type Specialty Care Team Description 10/04/2021 Office Visit Dermatology Tg Velasco MD [facility] [address] [place], [place] [address] (Wo rk) documented as of this encounter Visit Diagnoses Diagnosis Tonsil cancer Malignant neoplasm of tonsil Intractable vomiting with nausea, unspec ified vomiting type documented in this encounter Care Teams Construction Secretary Relationship Specialty Start Date End Date Gregg Garcia MD PCP - General General Internal Medicine 09/24/18 [address] [place] [address] documented as of this encounter
--- OUTSIDE RECORDS SUMMARY | 2021-09-13 17:59 | XMS_ITS | Encounter Summary ---
:1975 Author Organization [facility] [place] [address] Care Team Providers Name Role Phone Gregg Garcia MD Primary Care Provider Encounter Details Date Type Department Care Team Description 02/13/2019 Ancillary Appointment Radiation Oncology at [facility] [address] [place] [phone] RADIATION ONCOLOGY [phone] [place] [address] Social History Tobacco Use Types Packs/Day Years [...] documented as of this encounter Progress Notes Deanna Hall RN - 02/13/2019 4:00 PM EST Section of Radiation Oncology Contrast Information Safety [...] level drawn within the past 45 days? NA If no, when will it be drawn? 02/08/19 Creatinine 1.09 A creatinine less than or equal to [...] further lab studies. Mihir Vences MD - 02/13/2019 4:00 PM EST Simulation was performed in anticipation of adaptive radiotherapy for squamous cell carcinoma of thehead and neck. An intravenous line was placed in anticipation of contrast administration. The patient was then brought to the simulation room and a time-out was performed per protocol. he was then placed on the simulation table and a custom cushion was constructed for his neck. A custom aquaplast maskwas then created. The simulation CT scan was [...] Visit Dermatology Tg Velasco MD [facility] [address] [place], [place] [address] (Wo rk) documented as of this encounter Visit Diagnoses Not on filedocumented in this encounter Care Teams Hydraulic Press Tender Relationship Specialty Start Date End Date Gregg Garcia MD PCP - General General Internal Medicine 09/24/18 [address] [place] [address] documented as of this encounter
--- OUTSIDE RECORDS SUMMARY | 2021-09-13 17:59 | XMS_ITS | Encounter Summary ---
:1975 Author Organization [facility] [address] Care Team Providers Name Role Phone Gregg Garcia MD Primary Care Provider Reason for Visit Reason Comments IV Medication IV hydration Encounter Details Date Type Department Care Team Description 02/13/2019 Infusion Hematology Oncology at [facility] Tonsil cancer [address] [place] [phone] Social History Tobacco Use Types [...] Sign Reading Time Taken Comments Blood Pressure 109/60 02/13/2019 1:07 PM EST Pulse 63 02/13/2019 1:07 PM EST Temperature 36.6 ??C (97.9 ??F) 02/13/2019 1:07 PM EST Respiratory Rate 16 02/13/2019 1:07 PM EST Oxygen Saturation 100% 02/13/2019 1:07 PM EST Inhaled Oxygen Concentration - - Weight 87.4 kg (192 lb 9.6 oz) 02/13/2019 1:07 PM EST Height 188 cm (6' 2.02) 02/13/2019 1:07 PM EST copied Body Mass Index 24.72 02/13/2019 1:07 PM EST documented in this encounter Progress Notes Tess Green, RN - 02/13/2019 1:00 PM EST INFUSION THERAPY ADMINISTRATION NOTES DIAGNOSIS: Tonsillar cancer REASON FOR VISIT: Hydration SUBJECTIVE: Delvin reiterates that he has persistent nausea and that food/fluids do not taste good. However, his weight is up 3 lbs from Monday. OBJECTIVE: VSS. IV ACCESS: # 20 gauge PIV placed for SIM and hydration. REACTIONS (DESCRIPTION, TIME, INTERVENTION AND EFFECTIVENESS) none ASSESSMENT: Delvin was awake, alert and tolerated treatment well. PIV left intact for SIM. PLAN: Return to clinic Monday for hydration. documented in this encounter Plan of Treatment Upcoming Encounters Date Type Specialty Care Team Description 10/04/2021 Office Visit Dermatology Tg Velasco MD [facility] [address] [place], [place] [address] (Wo rk) documented as of this encounter Visit Diagnoses Diagnosis Tonsil cancer Malignant neoplasm of tonsil documented in this encounter Administered Medications Inactive Administered Medications - up to 3 most recent administrations Medication Order MAR Action Action Date Dose Rate Site sodium chloride 0.9% New Bag 02/13/2019 1:30 PM EST 500 mL/hr 500 mL/hr infusion 500 mL/hr, Intravenous, ONCE, 1 dose, On Mon02/13/19 at 1200, 1 Liter of normal saline over two hours. documented in this encounter Care Teams Cement Worker Relationship Specialty Start Date End Date Gregg Garcia MD PCP - General General Internal Medicine 09/24/18 [address] [place] [address] documented as of this encounter
--- OUTSIDE RECORDS SUMMARY | 2021-09-13 17:59 | XMS_ITS | Encounter Summary ---
:1975 Author Organization [facility] [place] [address] Care Team Providers Name Role Phone Gregg Garcia MD Primary Care Provider Reason for Visit Reason Comments IV Medication Hydration and IV meds Treatment/Therapy Plan Authorization (Routine) - Closed Specialty Diagnoses / Procedures Referred By Contact Refer red To Contact Diagnoses Tonsil cancer Chris George MD [facility] Hem Onc Infusion Procedures TC PALONOSETRON HCL, 25MCG, INJECTION (ALOXI) TC APREPITANT, 1 MG, INJECTION TC CISPLATIN, POWDER OR SOLUTION, 10MG, INJECTION [facility] [address] [place] [address] [place] [phone] Fax: Referral ID Status Reason Start Date Expiration Date Visits Requ ested Visits Authorized [id number] Closed 12/28/2018 01/14/2020 5 5 Encounter Details Date Type Department Care Team Description 02/11/2019 Infusion Hematology Oncology at [facility] Tonsil cancer [address] [place] [phone] Social History Tobacco Use Types [...] Sign Reading Time Taken Comments Blood Pressure 113/62 02/11/2019 1:36 PM EST Pulse 78 02/11/2019 1:36 PM EST Temperature 36.9 ??C (98.4 ??F) 02/11/2019 1:36 PM EST Respiratory Rate 18 02/11/2019 1:36 PM EST Oxygen Saturation 100% 02/11/2019 1:36 PM EST Inhaled Oxygen Concentration - - Weight 86.1 kg (189 lb 12.8 oz) 02/11/2019 1:36 PM EST Height 188 cm (6' 2.02) 02/11/2019 1:36 PM EST Body Mass Index 24.36 02/11/2019 1:36 PM EST documented in this encounter Progress Notes Tess Green RN - 02/11/2019 1:30 PM EST INFUSION THERAPY ADMINISTRATION NOTES DIAGNOSIS: Tonsillar cancer REASON FOR VISIT: Hydration and anti-emetics SUBJECTIVE: Delvin offers that he has persistent nausea and that food/fluids do not taste good. He states the anti-emetics he has do not work overly well. He exhibits an almost 7 lb weight loss form 02/06/19. Basket to Josse Ayala [facility] OBJECTIVE: VSS. IV ACCESS: PIV REACTIONS (DESCRIPTION, TIME, INTERVENTION AND EFFECTIVENESS) none ASSESSMENT: Delvin was awake, alert and tolerated treatment well. PIV discontinued prior to dismissal. PLAN: Return to clinic per routine. documented in this encounter Plan of Treatment Upcoming Encounters Date Type Specialty Care Team Description 10/04/2021 Office Visit Dermatology gT Velasco MD [facility] [address] [place], [place] [address] (Wo rk) documented as of this encounter Visit Diagnoses Diagnosis Tonsil cancer Malignant neoplasm of tonsil documented in this encounter Administered Medications Inactive Administered Medications - up to 3 most recent administrations Medication Order MAR Action Action Date Dose Rate Site aprepitant (CINVANTI) injection Given 02/11/2019 2:50 PM EST 130 mg Emul 130 mg 130 mg, Intravenous, ONCE, 1 dose, On Mon02/11/19 at 1430, Alternative administration of IV push over 2 minutes is a recommendation from the automobile mechanic radiator., Routine dexamethasone (Decadron) tablet 4 mg Given 02/11/2019 2:50 PM EST 4 mg 4 mg, Oral, ONCE, 1 dose, On Mon02/11/19 at 1430, Routine sodium chloride 0.9% infusion New Bag 02/11/2019 1:30 PM EST 1,000 mLs 500 mL/hr 1,000 mL, at 500 mL/hr, Intravenous, CONTINUOUS, Starting on Mon02/11/19 at 1430, Until Mon02/11/19 at 1629 documented in this encounter Care Teams Component Assembler Relationship Specialty Start Date End Date Gregg Garcia MD PCP - General General Internal Medicine 09/24/18 [address] [place] [address] documented as of this encounter
--- OUTSIDE RECORDS SUMMARY | 2021-09-13 17:59 | XMS_ITS | Encounter Summary ---
:1975 Author Organization [facility] [place] [address] Care Team Providers Name Role Phone Gregg Garcia MD Primary Care Provider Encounter Details Date Type Department Care Team Description 01/11/2019 Telephone Hematology/Oncology at [facility] Queenie Koenig [address] [phone] Social History Tobacco Use [...] [facility] [address] [place], [place] [address] (Wo rk) documented as of this encounter Visit Diagnoses Not on filedocumented in this encounter Care Teams Quality System Manager Relationship Specialty Start Date End Date Gregg Garcia MD PCP - General General Internal Medicine 09/24/18 [address] [place] [address] documented as of this encounter
--- OUTSIDE RECORDS SUMMARY | 2021-09-13 17:59 | XMS_ITS | Encounter Summary ---
:1975 Author Organization [facility] [place] [address] Care Team Providers Name Role Phone Gregg Garcia MD Primary Care Provider Encounter Details Date Type Department Care Team Description 02/01/2019 Orders Only Radiation Oncology a [facility] Perfecto Delgadillo MD [facility]3] [place] [address] RADIATION ONCOLOGY [phone] [place], [place] [address] (Wo rk) Social History Tobacco [...] Office Visit Dermatology Tg Velasco MD [facility] [address] [facility] [place], [place] [address] (Wo rk) documented as of this encounter Visit Diagnoses Not on filedocumented in this encounter Care Teams Leno Sewer Relationship Specialty Start Date End Date Gregg Garcia MD PCP - General General Internal Medicine 09/24/[address] [facility] [place] [address] documented as of this encounter
--- OUTSIDE RECORDS SUMMARY | 2021-09-13 17:59 | XMS_ITS | Encounter Summary ---
:1975 Author Organization [facility] Address [place] [id number] Care Team Providers Name Role Phone Gregg Garcia MD Primary Care Provider Reason for Visit Reason Comments On Treatment Visit Encounter Details Date Type Department Care Team Description 01/29/2019 Office Visit Radiation Oncology at [facility], Carol Benson MD Tonsillar cancer [address] RADIATION ONCOL [place] [address] [place] [id number] [phone] (Wo rk) Social History Tobacco Use Types [...] Sign Reading Time Taken Comments Blood Pressure 110/72 01/29/2019 1:07 PM EST Pulse 83 01/29/2019 1:07 PM EST Temperature 36.9 ??C (98.4 ??F) 01/29/2019 1:07 PM EST Respiratory Rate 18 01/29/2019 1:07 PM EST Oxygen Saturation 100% 01/29/2019 1:07 PM EST Inhaled Oxygen Concentration - - Weight 90.4 kg (199 lb 6.4 oz) 01/29/2019 1:07 PM with shoes EST Height - - Body Mass Index 25.59 01/25/2019 10:51 AM EST documented in this encounter Progress Notes Carol Lo MD - 01/29/2019 12:30 PM EST ON TREATMENT VISIT NOTE Delvin Rosario is a 43 y.o. 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 Current treatment dose: 20 Gy in 10 fractions. Anticipated total dose: 70 Gy in 35 fractions. Concomitant Therapy: Y ONC BCA CHEMO (AMB) 01/16/2019 Day, Cycle Day 1, Cycle 1 CISplatin (PLATINOL) IV 100 mg/m2/dose Evaluation of Port Verification Films: PORT films have been reviewed, please see RUBI for details. Changes in medical condition Pain: Just starting to develop a little discomfort on L side of mouth/throat. Secretions/Dryness: significant dysgeusia. Using baking soda & salt rinse 6 X/d. Swallowing Function: Swallowing solids & liqs ok, better than prior to xrt initiation. Nutrition: ~ 4 ensure per day and some soft solids. Skin: no issues GI: --Constipation initially. Miralax / stool softener prn. Resolved Hearing: developed tinnitus Nutrition Assessment: Weight : 94.5 kg initial Change: 90.4 -> 90.4 Objective: Vitals: 01/29/19 1307 BP: 110/72 Patient Position: Sitting Pulse: 83 Resp: 18 Temp: 36.9 ??C (98.4 ??F) TempSrc: Temporal SpO2: 100% Weight: 90.4 kg (199 lb 6.4 oz) SKIN: no skin erythema MUCOSA: Erythema L OP extending onto soft palate. No thrush. Assessment: Tolerating xrt ok. CTCAE TOXICITY GRADES (see below for hernandez): Site Grade Skin 0 Xerostomia 1 Pharyngeal Mucositis 1 Dysphagia 0 Hoarseness 0 Plan: ?? Continue RT per prescription ?? Pain control: ?? OTC medications prn ?? Skin: Jeans cream prn ?? Mucositis: ?? Pain control: see above ?? Oral hygiene consisting of baking soda/salt rinse 6 X/d @ this time; discussed increasing to 8 X/d. ?? Alimentation: contract administrator following ?? Weight stable over past wk, all by mouth at this time. No G tube. CTCAE v4.03 scales for reference Skin 0 [...] Visit Dermatology Tg Velasco MD [facility] [address] [place], [place] [address] (Wo rk) documented as of this encounter Visit Diagnoses Diagnosis Tonsillar cancer Malignant neoplasm of tonsil documented in this encounter Care Teams Engine Emission Technician Relationship Specialty Start Date End Date Gregg Garcia MD PCP - General General Internal Medicine 09/24/18 [address] [place] [address] documented as of this encounter
--- OUTSIDE RECORDS SUMMARY | 2021-09-13 17:59 | XMS_ITS | Encounter Summary ---
:1975 Author Organization [facility] [place] [address] Care Team Providers Name Role Phone Gregg Garcia MD Primary Care Provider Reason for Visit Reason Comments Other Cycle 1, Day 8, Hydration & antiemetics Treatment/Therapy Plan Authorization (Routine) - Closed Specialty Diagnoses / Procedures Referred By Contact Refer red To Contact Diagnoses Tonsil cancer Chris George MD [facility] Hem Onc Infusion Procedures TC PALONOSETRON HCL, 25MCG, INJECTION (ALOXI) TC APREPITANT, 1 MG, INJECTION TC CISPLATIN, POWDER OR SOLUTION, 10MG, INJECTION [address] [place] [phone] Fax: Referral ID Status Reason Start Date Expiration Date Visits Requ ested Visits Authorized [id number] Closed 12/28/2018 01/14/2020 5 5 Encounter Details Date Type Department Care Team Description 01/23/2019 Infusion Hematology Oncology at [facility] Tonsil cancer [address] [place] [address] [phone] Social History Tobacco Use Types [...] Sign Reading Time Taken Comments Blood Pressure 110/56 01/23/2019 8:11 AM EST Pulse 68 01/23/2019 8:11 AM EST Temperature 36.7 ??C (98.1 ??F) 01/23/2019 8:11 AM EST Respiratory Rate 20 01/23/2019 8:11 AM EST Oxygen Saturation 100% 01/23/2019 8:11 AM EST Inhaled Oxygen Concentration - - Weight 90.4 kg (199 lb 3.2 oz) 01/23/2019 8:11 AM EST Height 188 cm (6' 2.02) 01/23/2019 8:11 AM EST Body Mass Index 25.56 01/23/2019 8:11 AM EST documented in this encounter Progress Notes Licha Mcnally RN - 01/23/2019 8:00 AM EST INFUSION THERAPY ADMINISTRATION NOTES DIAGNOSIS: Tonsillar cancer REASON FOR VISIT: Hydration & antiemetic SUBJECTIVE Delvin states that he continues to have nausea and isn't sleeping very well. OBJECTIVE IV ACCESS: PIV REACTIONS (DESCRIPTION, TIME, INTERVENTION AND EFFECTIVENESS) Antiemetic education reviewed with Delvin. ASSESSMENT Delvin was awake, alert and tolerated treatment well. 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 Return to clinic per routine. documented in this encounter Plan of Treatment Upcoming Encounters Date Type Specialty Care Team Description 10/04/2021 Office Visit Dermatology Tg Velasco MD [facility] [address]AL[address]DERMAT [place], [place] [address] (Wo rk) documented as of this encounter Visit Diagnoses Diagnosis Tonsil cancer Malignant neoplasm of tonsil documented in this encounter Administered Medications Inactive Administered Medications - up to 3 most recent administrations Medication Order MAR Action Action Date Dose Rate Site ondansetron (ZOFRAN) injection 8 mg Given 01/23/2019 8:33 AM EST 8 mg 8 mg, Intravenous, ONCE PRN, Starting on Mon01/23/19 at 0814, Until Mon01/23/19 at 1230, Nausea, Vomiting, If multiple antiemetics are ordered, use in the following sequence: Ondansetron>Prochlorperazine or Promethazine>Lorazepam>Metoclopramid e Maximum dose 32 mg per day. sodium chloride 0.9% infusion New Bag 01/23/2019 8:33 AM EST 1,000 mLs 500 mL/hr 1,000 mL, at 500 mL/hr, Intravenous, CONTINUOUS, Starting on Mon01/23/19 at 0830, Until Mon01/23/19 at 1029 documented in this encounter Care Teams Special Makeup Fx Artist Instructor Relationship Specialty Start Date End Date Gregg Garcia MD PCP - General General Internal Medicine 09/24/18 [address] [place] [address] documented as of this encounter
--- OUTSIDE RECORDS SUMMARY | 2021-09-13 17:59 | XMS_ITS | Encounter Summary ---
:1975 Author Organization [facility] [place] [address] Care Team Providers Name Role Phone Gregg Garcia MD Primary Care Provider Encounter Details Date Type Department Care Team Description 02/08/2019 Clinical Support Hematology/Oncology at [facility], Tonsil cancer [facility] [address] [place] [phone] Social History Tobacco Use Types [...] Concentration - - Weight - - Height 188 cm (6' 2.02) 02/08/2019 1:00 PM EST Body Mass Index - - documented in this encounter Progress Notes Mary Carmen Sanchez, RD - 02/08/2019 12:00 PM EST [facility] Initial Assessment Referred by: Dr. Ariel Reason for visit: Symptom management Patient Active Problem List ?? Diagnosis ??? Tonsil cancer ? cT1 N2 M0 p16(+), L tonsil ?? A. Presenting with L neck mass; trivial tobacco history; small L tonsil tumor, EUA 12/10/2018: non-ker SCCa B. Definitive radiation with high dose cisplatin 01/16/2019- Assessment: HPI Patient Active Problem List Diagnosis Code ??? Neck mass R22.1 ??? Tonsil cancer C09.9 Meds: reviewed Labs: reviewed Estimated body mass index is 25.18 kg/m?? as calculated from the following: Height as of this encounter: 188 cm (6' 2.02). Weight as of 02/06/19: 89 kg (196 lb 3.2 oz). Wt Readings from Last 3 Encounters: 02/06/19 89 kg (196 lb 3.2 oz) 02/05/19 89.4 kg (197 lb 3.2 oz) 02/01/19 91.2 kg (201 lb) Wt Hx: [place] Body Weight (IBW) (kg): 87.7 Fluids Requirement: 2.7 L Estimated daily PO intake: Nutrition Support: Are you receiving enteral, parenteral or venting support?: No Nutrition Diagnosis: Characteristics Severity Insufficient Energy Intake Insufficient Energy Intake: Equals 50% for equals 5 days Unintended Weight Loss Unintended Weight Loss: > 2% in 1 week Loss of Subcutaneous Fat Loss of Muscle Mass Fluid Accumulation Diminished Functional Capacity Delvin was admitted to [facility]. Unable to see at encounter. Did discuss his case with Dr. George. Weight loss is thought to be attributed to intractable nausea which led to dehydration. Dr. George is startinghim on prednisone to help with appetite and nausea and may dose reduce next cycle of chemotherapy. Delvin does not have a g-tube. Nutrition Intervention: ? Increase caloric needs ? Modify diet consistency: ? Increase frequency of meals and snacks ? Need for supplements Nutrition Goals: Educational Handouts provided: Other Recommendations: ? Monitoring and Evaluation: Will follow up with Mr. Rosario in 1 week to re-evaluate. I have provided him with my card and contact information should he have any questions in the meantime. Thank you for this consult. Mary Carmen SANCHEZ RD documented in this encounter Plan of Treatment Upcoming Encounters Date Type Specialty Care Team Description 10/04/2021 Office Visit Dermatology Tg Velasco MD [facility] [address] BL[address]HE DALAL[facility]DERMAT [place], [place] [address] (Wo rk) documented as of this encounter Visit Diagnoses Diagnosis Tonsil cancer Malignant neoplasm of tonsil documented in this encounter Care Teams Radiological Technician Relationship Specialty Start Date End Date Gregg Garcia MD PCP - General General Internal Medicine 09/24/18 [address] [place] [address] documented as of this encounter
--- OUTSIDE RECORDS SUMMARY | 2021-09-13 17:59 | XMS_ITS | Encounter Summary ---
:1975 Author Organization [facility] [place] [address] Care Team Providers Name Role Phone Gregg Garcia MD Primary Care Provider Reason for Visit Reason Onset Date Comments Nausea 02/07/2019 Encounter Details Date Type Department Care Team Description 02/07/2019 Telephone Hematology and Oncology at Chiara Simpson DO Nausea [facility] Latia quiros HEMATOLOGY/[place] [address] [place] [address] [phone] (Wo rk) Social History Tobacco Use Types [...] this encounter Miscellaneous Notes Telephone Encounter - Chiara Kaye DO - 02/07/2019 12:48 PM EST Reason for call: Consult/fever Caller: JOSÉ MIGUEL Loyola in the ED @ [facility] HPI: In brief, the patient is a 43 y/o man with squamous cell carcinoma of the tonsil now on concurrent chemoradiation. He is now s/p his second dose of cisplatin (02/06/2019). He presented with fevers/chills and fatigue with nausea/vomiting - started a few hours after chemotherapy. He does have a sore throat. No other signs/symptoms. Vitals: 37.3 (temporal), BP 111/66, SpO2 98% Exam: Appears flushed Swelling to left side of his neck (reportedly decreased) Posterior pharyneal erythema Labs: Lactate: 2.8 WBC: 4.71 H&H: 12.3/36.0 Platelets: 125 Differential: benign CMP Creatinine: 1.42 (previous was 1.06) Blood cultures: pending Rapid flu and strep both negative Lytes/LFTs all within normal range Imaging: CXR is pending. Recommendations: Suspect toxicity from concurrent chemoradiation and subsequent nausea/vomiting and mucositis. Elevated creatinine and lactate concerning - agree with observation admission and supportive care with IV fluids/anti-emetics etc. Patient is not neutropenic and not febrile, do not see a reason for empiric an tibiotics. While of low likelihood, recommended a CT neck w/o contrast to evaluate for abscess. Case was discussed with Oncology attending Dr. George. Chiara Kaye D.O. Hematology/Oncology Fellow Pager # [phone] 02/07/19, 12:48 PM documented in this encounter Plan of Treatment Upcoming Encounters Date Type Specialty Care Team Description 10/04/2021 Office Visit Dermatology Tg Velasco MD [facility] [address] DAL[address]DER[address] [place], [place] [address] (Wo rk) documented as of this encounter Visit Diagnoses Not on filedocumented in this encounter Care Teams Lime Spreader Relationship Specialty Start Date End Date Gregg Garcia MD PCP - General General Internal Medicine 09/24/18 [address] [place] [address] documented as of this encounter
--- OUTSIDE RECORDS SUMMARY | 2021-09-13 17:59 | XMS_ITS | Encounter Summary ---
:1975 Author Organization [facility] [place] [address] Care Team Providers Name Role Phone Gregg Garcia MD Primary Care Provider Encounter Details Date Type Department Care Team Description 02/01/2019 Unscheduled Encounter Radiation Oncology Lee Ann Ohara Tonsillar cancer at [facility] FRED Mont[place] [address] [place] [phone] Social History Tobacco Use Types Packs/Day [...] - Inhaled Oxygen Concentration - - Weight 91.2 kg (201 lb) 02/01/2019 2:07 PM EST Height - - Body Mass Index 25.8 01/30/2019 8:14 AM EST documented in this encounter Progress Notes Katy Ohara RN - 02/01/2019 8:49 AM EST Radiation Oncology Nursing on Treatment Note Patient has received 2400 cGy in 12 Fxs to the left tonsil for treatment of squamous cell carcinoma of the left tonsil. Side effects that patient is experiencing: Left side mouth /throat discomfort not adequately relieved with tylenol. Assessment: Currently rates discomfort at level 7-8/10 with swallowing. Weight today 201 lbs. Has been taking tylenol extra strength prn but this is no longer adequately relieving pain. Continues baking soda/salt rinses. Continues to tolerate soft diet and drinks copious fluids to help wash down anything that he eats. Anticipatory guidance/ interventions: Dr. Delgadillo covering updated. He ordered BMX liquid. Instructed patient regading BMX. He verbalized good understanding of new medication. Patient has clinic contact numbers as well as how to reach intrusion analyst radiation oncologist and knows tocall with any concerns. Plan: Weekly otv with Dr. Vences 02/06/19. Nursing otv daily prn. documented in this encounter Plan of Treatment Upcoming Encounters Date Type Specialty Care Team Description 10/04/2021 Office Visit Dermatology Tg Velasco MD [facility] [address] [place], [place] [address] (Wo rk) documented as of this encounter Visit Diagnoses Diagnosis Tonsillar cancer Malignant neoplasm of tonsil documented in this encounter Care Teams Stave Planer Tender Relationship Specialty Start Date End Date Gregg Garcia MD PCP - General General Internal Medicine 09/24/18 [address] [facility] [address] [place] [address] documented as of this encounter
--- OUTSIDE RECORDS SUMMARY | 2021-09-13 17:59 | XMS_ITS | Encounter Summary ---
:1975 Author Organization [facility] [place] [place] [address] Care Team Providers Name Role Phone Gregg Garcia MD Primary Care Provider Encounter Details Date Type Department Care Team Description 02/13/2019 Clinical Support Hematology/Oncology at [facility], Tonsil cancer [facility] [address] [place] [phone] Social History Tobacco Use Types [...] - Inhaled Oxygen Concentration - - Weight 87.4 kg (192 lb 9.6 oz) 02/13/2019 1:40 PM EST Height 188 cm (6' 2.02) 02/13/2019 1:40 PM EST Body Mass Index 24.72 02/13/2019 1:40 PM EST documented in this encounter Progress Notes Mary Carmen Sanchez, RD - 02/13/2019 10:00 AM EST No vomiting this week. Nausea poorly managed with lorazepam and zofran. Compazine did not help - made him anxious. Bowels: taking stool softeners daily - going daily. BSSW: 5-6/d [facility] Initial Assessment Referred by: Dr. George Reason for visit: symptom management Patient Name and Diagnosis: Delvin Rosario Assessment: HPI Patient Active Problem List Diagnosis Code ??? Neck mass R22.1 ??? Tonsil cancer C09.9 Meds: reviewed Labs: No results found for this or any previous visit (from the past 24 hour(s)). Estimated body mass index is 24.72 kg/m?? as calculated from the following: Height as of this encounter: 188 cm (6' 2.02). Weight as of this encounter: 87.4 kg (192 lb 9.6 oz). Wt Readings from Last 3 Encounters: 02/13/19 87.4 kg (192 lb 9.6 oz) 02/13/19 87.4 kg (192 lb 9.6 oz) 02/11/19 86.1 kg (189 lb 12.8 oz) Wt Hx: UBW: 220 - 225 lbs Lost 15-20 lbs 3 mos p/t tx, platuaed off at 215 lbs in October - Nov. 205 lbs on 01/16/19 BMI (Calculated): 24.72 [place] Body Weight (IBW) (kg): 87.7 Fluids Requirement: 3 L Estimated daily PO intake: Soft solids: chx noodle soup, yogurt w/ fruit, canned fruit. Aiming for 2000 calories Yesterday: pudding, Ensure Plus - 3-4/d Nutrition Support: Nutrition Diagnosis: Characteristics Severity Insufficient Energy Intake 66% of estimated intake needs by PO Unintended Weight Loss 9.2% weightloss in 2 mos; severe Loss of Subcutaneous Fat Loss of Muscle Mass Fluid Accumulation Diminished Functional Capacity Met with Delvin during IVF. He is approaching the 10% weightloss gopi for g-tube. However, he reports that nausea and dysgeusia are his biggest barrier to intake and denies odynophagia. Dex and lorazepamhave been added for nausea. Using zofran. Reacted to compazine and isn't able to use. He is taking in 3-4 Ensures/d with the aim of 2000 calories. Reviewed calorie needs. Offered suggestions on how to boost caloric intake w/o volume. Recommended using a straw. + phelgm and foam secretions. He is able to swallow mucinex capsules. Recommended switching to liquid, taking 30 mls every 4-6, and using a syringe to take. Nutrition Intervention: ? Increase caloric needs ? [...] Dermatology Tg Velasco MD [facility] ER [address] [place], [place] [address] (Wo rk) documented as of this encounter Visit Diagnoses Diagnosis Tonsil cancer Malignant neoplasm of tonsil documented in this encounter Care Teams Child Care Centre Director Relationship Specialty Start Date End Date Gregg Garcia MD PCP - General General Internal Medicine 09/24/18 [address] [place] [address] documented as of this encounter
--- OUTSIDE RECORDS SUMMARY | 2021-09-13 17:59 | XMS_ITS | Encounter Summary ---
:1975 Author Organization [facility] [place] [address] Care Team Providers Name Role Phone Gregg Garcia MD Primary Care Provider Reason for Visit Reason Comments Advice Only Consultation (Routine) - Closed Specialty Diagnoses / Procedures Referred By Contact Refer red To Contact Hematology and Oncology Diagnoses Oropharynx cancer Timothy David, [facility] Hem Onc 3k MD [facility] [address] [place] OTOLARYNGOLOGY DEPT. [id number] [place] [address] Referral ID Status Reason Start Date Expiration Date Visits V isits Requested Authorized [id number] Closed Consult, 12/10/2018 12/10/2019 1 1 Test & Treat Encounter Details Date Type Department Care Team Description 12/27/2018 Office Visit Hematology and Oncology Viviana George MD Tonsil cancer at [facility] Latia quiros [place] [address] [place] [address] [phone] (Wo rk) Social History Tobacco Use Types [...] Sign Reading Time Taken Comments Blood Pressure 122/59 12/27/2018 8:29 AM EDT Pulse 65 12/27/2018 8:29 AM EDT Temperature 36.6 ??C (97.9 ??F) 12/27/2018 8:29 AM EDT Respiratory Rate 18 12/27/2018 8:29 AM EDT Oxygen Saturation 98% 12/27/2018 8:29 AM EDT Inhaled Oxygen Concentration - - Weight 96.6 kg (213 lb) 12/27/2018 8:29 AM EDT Height 187 cm (6' 1.62) 12/27/2018 8:29 AM EDT Body Mass Index 27.63 12/27/2018 8:29 AM EDT documented in this encounter Progress Notes Chris George MD - 12/27/2018 8:30 AM EDT Head and Neck Cancer Medical Oncology Patient Active Problem List Diagnosis ??? Tonsil cancer cT1 N2 M0 p16(+), L tonsil ??? Neck mass CC: referred for medical oncology consultation by Dr David for discussion of chemoradiation for tonsil cancer. The patient is a 43-year-old male in generally good health who noted a left neck mass 1 or 2 years ago. This caused him no trouble, and changed only slowly. This was monitored by his primary care physician, and he even underwent a CT scan in June 2017 the brace no concerns about pathologic adenopathy. This began to grow in the spring and summer of this year, and a repeat CT scan in September 2018 no showed a 3 or 4 cm mass in the left neck. He began to notice dysphagia and left odynophagia, intermittently, over the late summer and . He was referred to in October; his office exam was notable only for the left neck mass and there were no visible masses in the throat or oral cavity. He underwent exam under anesthesia in the operating room on 12/10/2018; a 2.5cm firmness was now noted in the left upper tonsil. Multiple biopsies were taken, but only the left tonsil biopsy was positive forsquamous cell carcinoma, P 16+, and nonkeratinizing. His staging PET/CT had been done on 11/22 and was informative in the left neck node, and I believe it with the benefit of hindsight was also slightlypositive in the left tonsil. His case was reviewed at head and neck tumor board recently, and at this review we concluded that there was also evidence of a left retropharyngeal lymph node. Bilateral lymph nodes were seen on the PET/CT. Because of these factors, definitive chemoradiation rather than surgery was recommended, and hecomes to discuss these treatments in detail today. He is seeing Dr. Vences later this morning. The left neck mass has been intermittently uncomfortable, but does not bother him right now. He has had intermittent left otalgia and headaches. He also notes a sensation of numbness under the chin andanterior neck. He has had a slight increase in dysphasia over the summer; he lost about 20 pounds over the past 6 months but has not had to make any dietary changes. He has no symptoms that would suggest metastatic disease. His past medical history is unremarkable; he is on medical therapy for hypercholesterolemia but has had no active heart trouble. His family history is unremarkable for this illness He has no history of peripheral neuropathy nor ototoxicity. He has had no active dental problems, and had a dental checkup about a month ago. Social history reveals that he is , and he and his have 2 young children at home. 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 He has a very distant trivial cigarette smoking history, and takes ethanol occasionally. Physical exam: He looks well, in no acute distress. Voice is strong and well phonated, articulation is clear Oral exam shows very healthy teeth. Tongue is mobile. There is a subtle irregularity in the left upper tonsil, approximately 1 cm overall. No halitosis. Neck exam is unremarkable save for the left mid neck which is a roughly 4 cm nontender mobile mass extends upwards a bit approaching the border region 5. Lymph node exam and other sites is negative Tympanic membranes clear bilaterally Lungs are clear to auscultation and percussion Cardiac exam is normal Abdomen is benign without hepatosplenomegaly or masses Extremities are normal, no clubbing or cyanosis Neurologic exam shows grossly normal motor and sensory function. Cranial nerves normal, no stigmata of Christy's Reflexes 2+ Skin exam over the head neck region. Radiographs: I personally reviewed his axial imaging, and there is clear evidence of malignant lymphadenopathy in the left mid neck consistent with the exam. The PET/CT confirms this as well as multiple lymph the left and right neck, and I believe with hindsight the left tonsil lights up to a small d egree. There is also evidence of a left retropharyngeal node about 1 cm. There is no sign of distantmetastases. In re-reviewing the 06/2017 CT scan I think one can see a left mid neck lymph node just over 1 cm in size without any concerning characteristics. MRI done this morning shows the bilateral adenopathy; the L neck node mass has signs c/w extracapsular extension. No clear explanation for the submental numbness. 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 Impression: Healthy 43-year-old resenting with a P 16+ left tonsil cancer, with essentially no smoking history, with a natural history that suggests slow growth. He has some regional pain consistent with malignancy, but no obvious explanation for the submental numbness. There is certainly nothing in the spine that might explain this, he would have to attribute this to additional regional nerve to a decompression. Plan: He will be seeing Dr. Vences later today to discuss radiotherapy. We had a long discussion about the use of definitive chemoradiotherapy and curative intent treatment of this disease. I went over the potential toxicity as well as the logistics of chemoradiotherapy. I anticipate using high-dose cisplatin given at the beginning, middle, and end of a 7-week course of radiotherapy. We reviewed thesupportive care used with this treatment. I suspect we can get by with peripheral IV access, and maybe able to get by without a feeding tube. I would plan on having him come in weekly for checkups, aswell as supportive care. He would prefer to have his treatment in the [facility] if pos sible. We talked about the potential long-term effects of treatment, including xerostomia, permanent taste sensation changes, potential effect on dental health, and very rare side effects of second malignancycaused by the chemotherapy or both. He understands that our goal is to cure this cancer, but he alsounderstands that this cannot be guaranteed. He wishes to proceed. He will call his dentist for preradiation evaluation in the near future. Chris George MD, FACP carving machine operator Hematology/Oncology Section [place] [phone] Voice recognition software used for this note; please excuse manager pathology errors. I personally reviewed past medical, surgical, family medical histories, reviewed current medications, vital signs, labs, and performed full review of systems. These are documented below the narrative for clarity and succinctness. Outpatient Medications Marked as Taking for the 12/27/18 encounter (Office Visit) with Ze George MD Medication Sig Dispense Refill ??? vitamin E 100 unit Capsule Take 100 Units by mouth daily. ??? atorvastatin (LIPITOR) 40 mg Tablet 0 ??? multivitamin (THERAGRAN) Tablet Take 1 tablet by mouth daily. ??? ubidecarenone (COENZYME Q10) 100 mg Tablet Take by mouth daily. History reviewed. No pertinent past medical history. Past Surgical History: Procedure Laterality Date ??? PRO BIOPSY OROPHARYNX Bilateral 12/10/2018 BIOPSY, OROPHARYNX (WRVU 1.44) performed by Timothy David MD at [facility] MAIN OR ??? PRO LARYNGOSCOPY, DIRCT, OP SCOPE, BIOPSY Bilateral 12/10/2018 LARYNGOSCOPY, MICROSCOPE, WITH BIOPSY (WRVU 3.55) performed by Timothy David MD at [facility] MAIN OR ??? PRO NASAL ENDOSCOPY, DX Bilateral 12/10/2018 NASAL ENDOSCOPY DIAGNOSTIC, UNILATERAL OR BILATERAL (WRVU 1.1) performed by Timothy David MD at [facility] OR History reviewed. No pertinent family history. Social History Socioeconomic History ??? Marital status: Spouse name: Not on file ??? Number of children: Not on file ??? Years of education: Not on file ??? Highest education level: Not on file Occupational History ??? Not on file Social Needs ??? Financial resource strain: Not on file ??? Food insecurity: Worry: Not on file Inability: Not on file ??? Transportation needs: Medical: Not on file Non-medical: Not on file Tobacco Use ??? Smoking status: Former Smoker Packs/day: 0.50 Years: 3.00 Pack years: 1.50 Types: Cigarettes Last attempt to quit: 2000 Years since quittin.8 ??? Smokeless tobacco: Never Used Substance and Sexual Activity ??? Alcohol use: Yes Comment: once or twice a week ??? Drug use: Not on file ??? Sexual activity: Not on file Lifestyle ??? Physical activity: Days per week: Not on file Minutes per session: Not on file ??? Stress: Not on file Relationships ??? Social connections: Talks on phone: Not on file Gets together: Not on file Attends methodist service: Not on file Active member of club or organization: Not on file Attends meetings of clubs or organizations: Not on file Relationship status: Not on file ??? Intimate partner violence: Fear of current or ex partner: Not on file Emotionally abused: Not on file Physically abused: Not on file Forced sexual activity: Not on file Other Topics Concern ??? Not on file Social History Narrative ??? Not on file Review of Systems: Review of systems is negative for other DEVICE TEST ENGINEER, bone, pulmonary, cardiac, GI, , extremity, neurologic, endocrine, skin, constitutional, emotional, or functional problems. Vitals Office Visit from 12/27/2018 in Hematology and [place] [place] [facility] Weight 96.6 kg (213 lb) Height 187 cm (6' 1.62) BSA (Calculated - sq m) 2.24 sq meters BMI (Calculated) 27.63 Temp 36.6 ??C (97.9 ??F) Temp src Temporal Heart Rate 65 Heart Rate Source Monitor Resp 18 BP 122/59 BP Location Left arm Patient Position Sitting SpO2 98 % Body surface area is 2.24 meters squared. Wt Readings from Last 3 Encounters: 12/27/18 96.6 kg (213 lb) 12/18/18 96.5 kg (212 lb 12.8 oz) 12/10/18 95.3 kg (210 lb) No results found for this or any previous visit (from the past 72 hour(s)). ++++++++++++++++++++++++++++++++++++++++++++++++++++ documented in this encounter Plan of Treatment Upcoming Encounters Date Type Specialty Care Team Description 10/04/2021 Office Visit Dermatology Tg Velasco MD [facility] ER DR BLANCHE DALAL-DERMAT [place], [place] [address] (Wo rk) documented as of this encounter Visit Diagnoses Diagnosis Tonsil cancer Malignant neoplasm of tonsil documented in this encounter Care Teams Personal Development Coach Relationship Specialty Start Date End Date Gregg Garcia MD PCP - General General Internal Medicine 09/24/18 [address] [place] [address] documented as of this encounter
--- OUTSIDE RECORDS SUMMARY | 2021-09-13 17:59 | XMS_ITS | Encounter Summary ---
:1975 Author Organization [facility] [place] [address] Care Team Providers Name Role Phone Gregg Garcia MD Primary Care Provider Encounter Details Date Type Department Care Team Description 12/20/2018 Multidisciplinary Care Otolaryngology at [facility] Kindra David [facility] [place] [address] [place] [address] [place] [address] Social History Tobacco Use Types Packs/Day Years [...] encounter Progress Notes Timothy David MD - 12/20/2018 11:59 PM EDT Head and Neck Tumor Board Note Site/Stage 3 Synopsis with pertinent exam findings 43 yo M with 1 y hx of left neck mass with recent onset of dysphagia x 2 months Denies referred otalgia/voice/speech/swallowing issues 20 lb unintentional weight loss Former smoker x 3 years, some EtOH, denies IVDA, negative PMHx Exam: L superior zone 2 mass extending into zone 3. Left tonsil full, normal R tonsil Normal FNL Imaging Taken to the OR for endoscopy and biopsies Noted to have lesion in the superior left tonsil, mobile, large left jose eduardo mass Pathology A - Lower left tonsil, biopsy: ??- Squamous cell carcinoma, nonkeratinizing, [id number]. ?(see Discussion.) B - Upper left tonsil, biopsy: ??- Squamous cell carcinoma, nonkeratinizing, [id number]. C - Lateral left base of tongue, biopsy: ??- Squamous mucosa, negative for malignancy. D - Right upper tonsil, biopsy: ??- Squamous mucosa, negative for malignancy. E - Right base of tongue, biopsy: ??- Squamous mucosa, negative for malignancy. Imaging PET-CT: Hypermetabolic lymphadenopathy is present in the left neck at levels 2A, 2B, 1B, and3. Hypermetabolic lymph nodes are present in the right neck at levels 2A and 3. ?? Diffuse, uniform and symmetric activity is present in the palate and tonsils bilaterally are all likely normal physiologic activity. ?? CHEST: No abnormal activity is present. ?? Calcified granulomas are present in the left upper and lower lobes. ?? ABDOMEN/PELVIS: No abnormal activity is present. ?? LEFT RETROPHARYNGEAL LYMPHADENOPATHY PRESENT, HIGH IN THE NECK Tumor Board Recommendations Not ideal surgical candidate on basis of retropharyngeal LAD. Recommend chemoradiation therapy. Will request MRI of the neck to have better assessment of the joes eduardo disease in the retropharyx. Likely treatment in [facility] * (Based on past studies and the [...] [facility] DR BL[address]HE [address]ALAL[address] [place], [place] [address] (Wo rk) documented as of this encounter Visit Diagnoses Not on filedocumented in this encounter Care Teams Urology Physician Assistant Relationship Specialty Start Date End Date Gregg Garcia MD PCP - General General Internal Medicine 09/24/18 [address] [place] [address] documented as of this encounter
--- OUTSIDE RECORDS SUMMARY | 2021-09-13 17:59 | XMS_ITS | Encounter Summary ---
:1975 Author Organization [facility] [place] [address] Care Team Providers Name Role Phone Gregg Garcia MD Primary Care Provider Reason for Visit Reason Comments IV Access IV start for SIM Encounter Details Date Type Department Care Team Description 01/02/2019 Infusion Hematology Oncology at [address] [phone] Social History Tobacco Use [...] encounter Progress Notes Licha Mcnally RN - 01/02/2019 7:30 AM EDT 20 g 1.1 Angiocath inserted in right wrist for SIM. documented in this encounter Plan of Treatment Upcoming Encounters Date Type Specialty Care Team Description 10/04/2021 Office Visit Dermatology Tg Velasco MD [facility] DR BLANCHE DALAL[address] [place], [place] [address] (Wo rk) documented as of this encounter Visit Diagnoses Diagnosis Neck mass Swelling, mass, or lump in head and neck documented in this encounter Care Teams Talent Sourcer Relationship Specialty Start Date End Date Gregg Garcia MD PCP - General General Internal Medicine 09/24/[address] [facility] [place] [address] documented as of this encounter
--- OUTSIDE RECORDS SUMMARY | 2021-09-13 17:59 | XMS_ITS | Encounter Summary ---
:1975 Author Organization [facility] [place] [address] Care Team Providers Name Role Phone Gregg Garcia MD Primary Care Provider Encounter Details Date Type Department Care Team Description 01/11/2019 Telephone Radiation Oncology a t [facility] Queenie Koenig [address] [phone] Social History Tobacco Use [...] Office Visit Dermatology Tg Velasco MD [facility] DR BL[address]AL[address] [place], [place] [address] (Wo rk) documented as of this encounter Visit Diagnoses Not on filedocumented in this encounter Care Teams County Demonstrator Relationship Specialty Start Date End Date Gregg Garcia MD PCP - General General Internal Medicine 09/24/18 [address] [place] [address] documented as of this encounter
--- OUTSIDE RECORDS SUMMARY | 2021-09-13 17:59 | XMS_ITS | Encounter Summary ---
:1975 Author Organization [facility] [place] [address] Care Team Providers Name Role Phone Gregg Garcia MD Primary Care Provider Reason for Visit Reason Onset Date Comments Appointment 12/25/2018 Encounter Details Date Type Department Care Team Description 12/25/2018 Telephone Otolaryngology at [facility] [place] [address] Social History Tobacco Use Types Packs/Day [...] this encounter Miscellaneous Notes Telephone Encounter - Lani Ruano - 12/25/2018 3:24 PM EDT From: Timothy David Sent: Tuesday, December 25, 2018 1:36 PM To: Lani Ruano [email or web address]> Subject: RE: Jarrett Rosario [id number] Rc Garibay: He can just see medical and radiation oncology and I can see him separately in 2 weeks. Thanks! B From: Lani Ruano <[email or web address]> Sent: Tuesday, December 25, 2018 1:27 PM To: Timothy David < > Cc: America Romero < > Subject: Jarrett Rosario [id number] Importance: High Hello again, Your patient Delvin Rosario is scheduled tentatively for the MRI Angio for 12/27 as well as other visits (Hem/onc & rad/onc). Does the patient need to see you as well? Or will he come back another time to see you? I could not tell by your checkout notes from the last visit. At this time I do not seean open spot to fit patient in on 12/27. Thank you again for your assistance. Corinna Ruano Sr. Clinical [place], Oral & Maxillofacial Surgery, Otolaryngology, and Audiology Commission Auditor [email or web address] phone: [phone] fax: [phone] Telephone Encounter - Lani Ruano - 12/25/2018 1:21 PM EDT I was able to add an MRA on for 12/27 at 6:50am check in. I called patient to inform him and received the voicemail and left a message. I did state the only way he can have this scan at that time is if there is no oral sedation. It was marked that is is not claustrophobic, but then was markedas needing oral sedation. I did request a call back moe to confirm the scan time. At this time there are no openings with Dr. David, but I will send Dr. David a message to inform him the patientis scheduled. Telephone Encounter - Robert Gonzalez - 12/25/2018 10:56 AM EDT Caller and relationship to patient (if other than patient): Delvin Rosario Best time to reach caller: today Message or Reason for Call: patient called to schedule his MRI for 12/27 per BG. Patient stated BG also wanted to follow up on results same day. Patient needs to schedule MRI for 12/27. Safety questions are answered, unable to hold for MRI scheduling. Appt Needed and Reason: ov Provider: BG documented in this encounter Plan of Treatment Upcoming Encounters Date Type Specialty Care Team Description 10/04/2021 Office Visit Dermatology Tg Velasco MD [facility] DR [address] [place] [address] (Wo rk) documented as of this encounter Visit Diagnoses Not on filedocumented in this encounter Care Teams Server Assistant Relationship Specialty Start Date End Date Gregg Garcia MD PCP - General General Internal Medicine 09/24/18 [address] [place] [address] documented as of this encounter
--- OUTSIDE RECORDS SUMMARY | 2021-09-13 17:59 | XMS_ITS | Encounter Summary ---
:1975 Author Organization [facility] [place] [address] Care Team Providers Name Role Phone Gregg Garcia MD Primary Care Provider Encounter Details Date Type Department Care Team Description 02/05/2019 Notes [facility] [place] [phone] Social History Tobacco Use Types Packs/Day [...] Sign Reading Time Taken Comments Blood Pressure 105/69 02/05/2019 12:23 PM EST Pulse 76 02/05/2019 12:23 PM EST Temperature - - Respiratory Rate 18 02/05/2019 12:23 PM EST Oxygen Saturation 99% 02/05/2019 12:23 PM EST Inhaled Oxygen Concentration - - Weight 89.4 kg (197 lb 3.2 oz) 02/05/2019 12:23 PM EST Height - - Body Mass Index 25.31 01/30/2019 8:14 AM EST documented in this encounter Progress Notes Ktay Ohara RN - 02/05/2019 11:50 AM EST Background: Asked to see patient by radiation therapists who report that he hasn't been eating much and wondered if he could be seen by nursing. . Radiation Oncology Nursing on Treatment Note Patient has received 2800 cGy to the left tonsil for treatment of tonsil cancer. Side effects that patient is experiencing: Change in diet. Dysgeusia. Assessment: Please see vitals taken. Patient denies pain. Reports that he is actually having an easier time eating now as food is not getting hung up like it did prior to radiation. He reports drinking 3-4 Ensure Plus yesterday along with copious water. Eating pears, canned fruit, pudding, cereal/mild and beef stew. Continues to eat only soft foods and fluids. Reports bowels moving wnl. He is awarethat sided effects of radiation likely will worsen with additional treatments. Anticipatory guidance/ interventions: Encouraged him to continue to eat high calorie soft solids andmaintain adequate hydration. Would benefit from follow up with RD and patient is agreeable to this. Plan: Weekly MD otv tomorrow with Dr. Vences. Nursing otv daily prn. Shredder Picker assessment requested. Dr. Vences updated with this note. documented in this encounter Plan of Treatment Upcoming Encounters Date Type Specialty Care Team Description 10/04/2021 Office Visit Dermatology Tg Velasco MD [facility] DR BL[address]HE [address]AL[address]MAT [place], [place] [address] (Wo rk) documented as of this encounter Visit Diagnoses Not on filedocumented in this encounter Care Teams Outpatient Clerk Relationship Specialty Start Date End Date Gregg Garcia MD PCP - General General Internal Medicine 09/24/1812/03/ [address] [place] [address] documented as of this encounter
--- OUTSIDE RECORDS SUMMARY | 2021-09-13 17:59 | XMS_ITS | Encounter Summary ---
:1975 Author Organization [facility] [place] [address] Care Team Providers Name Role Phone Gregg Garcia MD Primary Care Provider Encounter Details Date Type Department Care Team Description 01/25/2019 [facility] ONCOLOGY DEPT. [place], [place] [phone] Social History Tobacco Use Types Packs/Day Years [...] Sign Reading Time Taken Comments Blood Pressure 126/65 01/25/2019 10:51 AM EST Pulse 64 01/25/2019 10:51 AM EST Temperature 36.9 ??C (98.4 ??F) 01/25/2019 10:51 AM EST Respiratory Rate 16 01/25/2019 10:51 AM EST Oxygen Saturation 100% 01/25/2019 10:51 AM EST Inhaled Oxygen Concentration - - Weight 91.6 kg (202 lb) 01/25/2019 10:51 AM EST Height 188 cm (6' 2.02) 01/25/2019 10:51 AM EST Body Mass Index 25.92 01/25/2019 10:51 AM EST documented in this encounter Progress Notes Chris George MD - 01/25/2019 10:15 AM EST Hematology/Oncology Clinic [facility] Patient Active Problem List Diagnosis ??? Tonsil cancer cT1 N2 M0 p16(+), L tonsil A. Presenting with L neck mass; small L tonsil tumor, EUA 12/10/2018: non-ker SCCa B. Definitive radiation with high dose cisplatin 01/16/2019- ??? Neck mass Brandon is here for medical oncology checkup. He is due for cycle 2 chemotherapy next week. Unfortunately cycle 1 has been attended by considerable nausea, rather long-lasting and severe. This is gotten in the way of his oral intake, in combination with a growing sense of radiation irritation in the throat. Taste sensation is deteriorating as expected. He is been using Compazine for nausea, but this seems to have a side effect of insomnia and jitters. Dr. Vences added ondansetron to his as needed regimen and this is been helpful in the past few days. He is trying to keep up with hydration. He has been using salt and soda rinses in the mouth. He has noticed mild, fluctuating tinnitus but no functional hearing problems. No peripheral neuropathy. No infectious complications. Bowels are working well. Energy level is fair; he has had trouble concentrating at the computer when he is nauseated but is still putting in some time at work, sometimes in the office and sometimes at home. Physical exam: He is accompanied today by his who is very well-informed and supportive. He looks well, in no acute distress. Voice is clear. Oral exam shows good hydration, no signs of infection. The tumor in the left tonsil remains difficult to see, but there is a small, less than 1 cm, fullness in the left tonsillar fold. Lymph node exam negative except for the left zone 2-3 where there remains a 2 x 3 cm mass. I do not feel any other regional adenopathy or lymph nodes elsewhere The chest is clear Cardiac exam is normal Abdomen is benign, normal bowel sounds, no hepatosplenomegaly or masses Extremities are without clubbing cyanosis or edema Neurologic exam shows normal motor and sensory function. Cranial nerves are normal, no stigmata of Christy's syndrome. He has no trouble hearing quiet conversational volume. Reflexes 2+ Labs: Today's white count is 6.52, hemoglobin 13.7, platelets 190; chemistry panel remains normal, although his creatinine is very slightly higher at 1.19. Magnesium normal at 2.2. 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 Restlessness and insomnia likely due to prochlorperazine. Plan: We discussed options. One is switching chemotherapy, but high-dose cisplatin remains the standard of care and I would prefer to increase care around this to make it tolerable. To that effect, I modified the [place] plan to add dose of aprepitant with a day 8 and day 15 hydration visits, along with a dose of dexamethasone 4 mg by mouth at each hydration visit. We will add Ativan 1 mg p.o. every 6hours as needed for nausea, and discontinue prochlorperazine. I will also reduce the dose of cisplatin very slightly, down to 90 mg/m?? per dose for cycle 2 and 3. Contingency plans could include switching to weekly cisplatin dosing, or switching entirely, to carboplatin plus paclitaxel. Chris George MD, FACP ship self defense system mk1 operator Hematology/Oncology Section [facility] [address] Voice recognition software used for this note; please excuse mushroom cutter errors. I personally reviewed past medical, surgical, family medical histories, reviewed current medications, vital signs, labs, and performed full review of systems. These are documented below the narrative for clarity and succinctness. Outpatient Medications Marked as Taking for the 01/25/19 encounter (Office Visit) with Ze George MD Medication Sig Dispense Refill ??? ondansetron (ZOFRAN) 8 mg Tablet Take 1 tablet by mouth every 8 hours as needed for Nausea. 20 tablet 0 ??? prochlorperazine (COMPAZINE) 10 mg Tablet Take 1 tablet by mouth every 6 hours as needed for Nausea. 30 tablet 2 ??? cholecalciferol, Vitamin D3, 1,000 unit Tablet Take 1,000 Units by mouth daily. ??? atorvastatin (LIPITOR) 40 mg Tablet 0 ??? multivitamin (THERAGRAN) Tablet Take 1 tablet by mouth daily. ??? ubidecarenone (COENZYME Q10) 100 mg Tablet Take by mouth daily. Review of Systems: Review of systems is negative for other MARBLE POLISHER, bone, pulmonary, cardiac, GI, , extremity, neurologic, endocrine, skin, constitutional, emotional, or functional problems. Vitals Office Visit from 01/25/2019 in Hematology/Oncology at [facility] Weight 91.6 kg (202 lb) Height 188 cm (6' 2.02) BSA (Calculated - sq m) 2.19 sq meters BMI (Calculated) 25.92 Temp 36.9 ??C (98.4 ??F) Temp src Oral Heart Rate 64 Heart Rate Source Right, NIBP Resp 16 BP 126/65 BP Location Right arm Patient Position Sitting SpO2 100 % Karnofsky Score 80 Body surface area is 2.19 meters squared. Wt Readings from Last 3 Encounters: 01/25/19 91.6 kg (202 lb) 01/23/19 90.4 kg (199 lb 3.2 oz) 01/22/19 91.9 kg (202 lb 9.6 oz) No results found for this or any previous visit (from the past 72 hour(s)). ++++++++++++++++++++++++++++++++++++++++++++++++++++ documented in this encounter Plan of Treatment Upcoming Encounters Date Type Specialty Care Team Description 10/04/2021 Office Visit Dermatology Tg Velasco MD [facility] ER DR [address] [place], [place] [address] (Wo rk) documented as of this encounter Visit Diagnoses Diagnosis Tonsil cancer Malignant neoplasm of tonsil documented in this encounter Care Teams Director Of Slot Operations Relationship Specialty Start Date End Date Gregg Garcia MD PCP - General General Internal Medicine 09/24/18 [address] [place] [address] documented as of this encounter
--- OUTSIDE RECORDS SUMMARY | 2021-09-13 17:59 | XMS_ITS | Encounter Summary ---
:1975 [place] [address] Care Team Providers Name Role Phone Gregg Garcia MD Primary Care Provider Reason for Visit Auth/Cert Specialty Diagnoses / Procedures Referred By Contact Refer red To Contact Diagnoses Head and neck cancer Procedures PRO LARYNGOSCOPY, DIRCT, OP SCOPE, BIOPSY LARYNGOSCOPY, MICROSCOPE, WITH BIOPSY (WRVU 3.55) Referral ID Status Reason Start Date Expiration Date Visits Requ ested Visits Authorized [id number] 1 1 Encounter Details Date Type Department Care Team Description 12/10/2018 Anesthesia Event Main Operating Room Helio Ramos MD [facility] [place] [address] [facility] Lewis Bunch MD [facility] [place] [address] [place] [phone] Anesthesia Record Procedure Summary Procedure Name Responsible Anesthesia Start Anesthesia Stop Time Anesthesiologist Time LARYNGOSCOPY, Helio Daniels MD 12/10/18 0738 12/10/18 0855 MICROSCOPE, WITH BIOPSY (WRVU 3.55) (Bilateral Throat) Events Date Time Event Comment 12/10/2018 0713 0738 AN Verify 0738 Start 0739 An Start Data 0751 An Induction 0752 Anesthesia Ready 0755 An Intubation 0848 Extubation/LMA Out 0848 an stop data 0855 Recovery or ICU Handoff Patient care was transferred to the destination unit staff after review of the patient's medica l history, current anesthetic/surgi sean status and plan, according to the Provider Handoff Checklist. 0855 Stop Name Total fentaNYL 50 mcg IV Lidocaine 60 mg Propofol 330 mg Ondansetron 4 mg Dexamethasone 8 mg clindamycin (CLEOCIN) 600mg in dextrose 5% 50mL 600 mg Propofol INF 590.86 mg Succinylcholine 100 mg lactated ringers infusion 600 mL Agents Name O2 Air N2O Sevoflurane (et) Blood No blood administrations on file. Lines, Drains, and Airways Type Details Placement Removal Incision 10/30/18; 0742; neck; 10/30/18 0742 by Ayotte, 0 04/06/20 0000 by laparoscopic punctures FRED Noyola, Brionna Mayers, FRED (specify) (FNA lymph node); LDA not present upon assessment; 04/06/20 PIV 12/10/18; 0701; metacarpal 12/10/18 0701 by Miles bianchi, 12/10/18 1000 by Martin, vein (top of hand), left; FRED Barrera RN [id number] catheter system; 20 gauge, 1 in length; CLIVE; distraction, intradermal injection, tolerated well, appears comfortable; 0; 12/10/18; 1000 Incision 12/10/18; 0757; throat; LDA 12/10/18 0757 by Panda kilpatrick, 04/06/20 0000 by not present upon assessment; FRED Haley Laura C, RN 04/06/20 ETT Mask Ventilation: Easy (1); 12/10/18 0800 by Sta melonie, 12/10/18 0848 by Juilo C, ETT Type: Cuffed; ETT Size: MD Lewis Ochoa MD 7 mm; Matute Blade: (ENT intubation via straight blade); Notes: Asleep, Pre-O2, Stylette; Attempts: 1; Laryngoscopy Grade: 1; ETT Placement Verified By: Auscultation, Capnometry; Secured at Teeth: 23 cm; Inserted by: Joann documented in this encounter Social History Tobacco [...] encounter OR Notes Anesthesia Postprocedure Evaluation - Lewis Bunch MD - 12/10/2018 8:56 AM EDT Department of Anesthesiology Post-procedure Note Patient: Delvin Rosario Procedure Summary Date: 12/10/18 Room / Location: [facility] OR [facility] MAIN OR Anesthesia Start: 737 Anesthesia Stop: 854 Procedures: LARYNGOSCOPY, MICROSCOPE, WITH BIOPSY (WRVU 3.55) (Bilateral Throat) BIOPSY, OROPHARYNX (WRVU 1.44) (Bilateral Mouth) NASAL ENDOSCOPY DIAGNOSTIC, UNILATERAL OR BILATERAL (WRVU 1.1) (Bilateral Nose) Diagnosis: (Head and neck cancer) Surgeon: Timothy David MD Responsible Provider: Helio Daniels MD Anesthesia Type: general ASA Status: 3 All Anesthesia Providers: Anesthesiologist: Helio Daniels MD Deputy Clerk Of Superior Court: Lewis Bunch MD Vitals Value Taken Time BP Temp Pulse Resp SpO2 Pain Level Patient Location: PACU/[facility] Level of Consciousness: Awake and Alert Pain Management: Satisfactory Analgesia PONV: None Cardiovascular Status: At Baseline and Hemodynamically Stable Respiratory Status: Stable Respiratory Status and Supplemental O2 (NC or FM) Postoperative Fluid Status: Intravascular EUvolemia Possible Anesthetic Complications: NONE apparent at time of evaluation Final Primary Anesthesia Type: General (The anesthetic type performed was the same as planned.) Comments: Lewis Bunch MD Anesthesia Preprocedure Evaluation - Lewis Bunch MD - 12/07/2018 3:31 PM EDT Pre-Anesthesia Evaluation for: Delvin Rosario a 43 y.o. male. Procedure(s): LARYNGOSCOPY, MICROSCOPE, WITH BIOPSY ([facility] 3.55) Patient Active Problem List Diagnosis ??? Neck mass No past medical history on file. No past surgical history on file. Social History Tobacco Use ??? Smoking status: Former Smoker Packs/day: 0.50 Years: 3.00 Pack years: 1.50 Types: Cigarettes Last attempt to quit: 2000 Years since quittin.7 ??? Smokeless tobacco: Never Used Substance Use Topics ??? Alcohol use: Yes Comment: once or twice a week Social History Substance and Sexual Activity Drug Use Not on file Allergies Allergen Reactions ??? Magnesium Salicylate Rash Medications: MAR and/or home medications have been reviewed. Physical Exam: There were no vitals filed for this visit. There is no height or weight on file to calculate BMI. Airway Assessment: Mallampati: II TM distance: >3 FB Neck ROM: full Cardiovascular Assessment: Rhythm: regular Rate: normal cardiovascular exam normal Pulmonary Assessment: breath sounds clear to auscultation pulmonary exam normal Dental Assessment: - normal exam Misc Assessment: Patient is wearing No contact(s). IV access: Peripheral line Anesthesia Plan: ASA 3 general, with a(n) intravenous and inhalational induction 43yo male, history of L upper neck mass that is causing difficulty swallowing, some hoarseness to his voice. Is a former smoker but only 2 pack year history. Presents for laryngoscopy and biopsy. PET CT scan shows lymphadenopathy in the neck bilaterally with no clear primary lesion. Flexible laryngoscopy on 11/13/18 shows normal anatomy, no masses or asymmetry noted. No anesthesia/airway records on file. No EKG/echo on file. Lab Results Component Value Date PLATELET 222 10/30/2018 INR 1.0 10/30/2018 No results for input(s): ABORH in the last 7068 hours. Allergies: -- Magnesium Salicylate -- Rash NPO Status: Appropriate Anesthetic Plan: AM premedication with oral tylenol, gabapentin GA, will comanage airway with ENT, plan for TIVA given respiratory pauses Standard ASA monitoring Adequate IV access, PIVx1 Region - Other Informed Consent: Anesthetic plan and risks discussed with patient. Use of blood products discussed with patient who consented to blood products. Plan discussed with resident and attending. PAT Clinic Note documented in this encounter Plan of Treatment Upcoming Encounters Date Type Specialty Care Team Description 10/04/2021 Office Visit Dermatology Tg Velasco MD [facility] ER DR [address] [place], [place] [address] (Wo rk) documented as of this encounter Visit Diagnoses Not on filedocumented in this encounter Administered Medications Inactive Administered Medications - up to 3 most recent administrations Medication Order MAR Action Action Date Dose Rate Site clindamycin (CLEOCIN) 600mg in Given 12/10/2018 7:43 AM EDT 600 mg dextrose 5% 50mL 600 mg, Intravenous, 30 MIN PRE-OP, 1 dose, On Mon12/10/18 at 0715, Administer over 20 Minutes, Day of Surgery (Day of Procedure), Indication for (Active or Suspected): Prophylaxis dexamethasone (DECADRON) injection Given 12/10/2018 8:03 AM EDT 8 mg PRN, Starting on Mon12/10/18 at 0803, Until Mon12/10/18 at 0855, Anesthesia Intra-op, Routine fentaNYL 50 mcg/mL multi-dose injection Given 12/10/2018 7:38 AM EDT 50 mcg PRN, Starting on Mon12/10/18 at 0738, Until Mon12/10/18 at 0855, Anesthesia Intra-op, Routine lactated ringers infusion New Bag 12/10/2018 7:38 AM EDT 1,000 mL, at 100 mL/hr, Intravenous, CONTINUOUS, Starting on Mon12/10/18 at 0715, Until Mon12/10/18 at 1218, Day of Surgery (Day of Procedure) lidocaine (PF) (XYLOCAINE) 100 mg/5 mL (2 %) Given 9 7:38 AM EDT 60 mg injection PRN, Starting on Mon12/10/18 at 0738, Until Mon12/10/18 at 0855, Anesthesia Intra-op, Routine ondansetron (ZOFRAN) injection Given 12/10/2018 8:03 AM EDT 4 mg PRN, Starting on Mon12/10/18 at 0803, Until Mon12/10/18 at 0855, Anesthesia Intra-op, Routine propofol (DIPRIVAN) 10 mg/mL bolus injection Given 9 8:30 AM EDT 20 mg (Anesthesia) PRN, Starting on Mon12/10/18 at 0751, Until Mon12/10/18 at 0855, Anesthesia Intra-op Given 12/10/2018 8:23 AM EDT 20 mg Given 12/10/2018 8:15 AM EDT 20 mg propofol (DIPRIVAN) Rate/Dose 12/10/2018 8:16 100 mcg/kg/min 57.2 mL /hr infusion Change AM EDT CONTINUOUS PRN, Starting on Mon12/10/18 at 0751, Until Mon12/10/18 at 0855, Anesthesia Intra-op, Routine New Bag 12/10/2018 7:51 AM EDT 200 mcg/kg/min 114.4 mL/hr succinylcholine chloride (Quelicin) inje ction Given 12/10/2018 7:51 AM EDT 100 mg PRN, Starting on Mon12/10/18 at 0751, Until Mon12/10/18 at 0855, Anesthesia Intra-op, Routine documented in this encounter Care Teams Molder Feeder Relationship Specialty Start Date End Date Gregg Garcia MD PCP - General General Internal Medicine 09/24/18 [address] [place] [address] documented as of this encounter
--- OUTSIDE RECORDS SUMMARY | 2021-09-13 17:59 | XMS_ITS | Encounter Summary ---
:1975 Author Organization [facility] [place] [address] Care Team Providers Name Role Phone Gregg Garcia MD Primary Care Provider Encounter Details Date Type Department Care Team Description 01/17/2019 Notes Only Hematology/Oncology at Manuela Rivera RN [place] [phone] Social History Tobacco Use Types Packs/Day [...] documented as of this encounter Progress Notes Manuela Matute RN - 01/17/2019 12:04 PM EST Spoke with Delvin today prior to his radiation. He is doing well tolerated cisplatin yesterday withoutissue. He has no nausea today although he took his compazine at home just to make sure he did not get nauseated. He is drinking plenty, urinating fine. Bowels are a little slow he knows he can roll picker some miralax if he needs it. He is doing salt water rinses frequently. He knows he has hydration tomorrow and will see Dr. George next Blu with lab before. He knows numbers to call if he has questionsor concerns. documented in this encounter Plan of Treatment Upcoming Encounters Date Type Specialty Care Team Description 10/04/2021 Office Visit Dermatology Tg Velasco MD [facility] ER DR [address] [place], [place] [address] (Wo rk) documented as of this encounter Visit Diagnoses Not on filedocumented in this encounter Care Teams Product Manager Medical Device Relationship Specialty Start Date End Date Gregg Garcia MD PCP - General General Internal Medicine 09/24/18 9 [address] [place] [address] documented as of this encounter
--- OUTSIDE RECORDS SUMMARY | 2021-09-13 17:59 | XMS_ITS | Encounter Summary ---
:1975 Author Organization [facility] [place] [address] Care Team Providers Name Role Phone Gregg Garcia MD Primary Care Provider Encounter Details Date Type Department Care Team Description 02/13/2019 Orders Only Hematology and Chris George, Tonsil ca ncer; Oncology at [facility] Chemotherapy induced nausea and vomiting [facility] [address] [place] ON[place]PT. [address] [place] [address] [phone] Social History Tobacco Use Types Packs/Day Years [...] encounter Progress Notes Chris George MD - 02/13/2019 4:34 PM EST Head/Neck Med Onc Case reviewed in team meeting. Still having grade 2 nausea despite ondansetron + dexamethasone + lorazepam. Plan: will add olanzapine for therapeutic trial (3 nightly doses). Will observe carefully for neuromuscular S/E (had restlessness with prochlorperazine). Chris George MD, FACP Hematology/Oncology Section, [facility] appliance technician, [employer] [facility] [employer] at [facility] [phone] documented in this encounter Plan of Treatment Upcoming Encounters Date Type Specialty Care Team Description 10/04/2021 Office Visit Dermatology Tg Velasco MD [facility] DR [address] [place], [place] [address] (Wo rk) documented as of this encounter Visit Diagnoses Diagnosis Tonsil cancer Malignant neoplasm of tonsil Chemotherapy induced nausea and vomiting Nausea with vomiting documented in this encounter Care Teams Private Equity Associate Relationship Specialty Start Date End Date Gregg Garcia MD PCP - General General Internal Medicine 09/24/18 [address] [place] [address] documented as of this encounter
--- OUTSIDE RECORDS SUMMARY | 2021-09-13 17:59 | XMS_ITS | Encounter Summary ---
:1975 Author Organization [facility] [place] [address] Care Team Providers Name Role Phone Gregg Garcia MD Primary Care Provider Encounter Details Date Type Department Care Team Description 01/23/2019 Orders Only [facility] Latia quiros [place] [address] [place] [address] [phone] (Wo rk) Social History Tobacco Use Types [...] MD [facility] [address] [place], [place] [address] (Wo rk) documented as of this encounter Visit Diagnoses Not on filedocumented in this encounter Care Teams Security Inspector Relationship Specialty Start Date End Date Gregg Garcia MD PCP - General General Internal Medicine 09/24/18 [address] [place] [address] documented as of this encounter
--- OUTSIDE RECORDS SUMMARY | 2021-09-13 17:59 | XMS_ITS | Encounter Summary ---
:1975 Author Organization [facility] Address [place] [id number] Care Team Providers Name Role Phone Gregg Garcia MD Primary Care Provider Encounter Details Date Type Department Care Team Description 02/06/2019 Office Visit Radiation Oncology at Mihir Martin, Tonsillar cancer Robbie SARMIENTO [address] [place] [phone] RADIATION ONCOLOGY [phone] [place] [address] (Wo rk) Social History Tobacco Use Types [...] encounter Progress Notes Mihir Vences MD - 02/06/2019 12:30 PM EST ON TREATMENT VISIT NOTE Delvin Rosario is a 43 y.o. 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 Current treatment dose: 30 Gy in 15 fractions. Anticipated total dose: 70 Gy in 35 fractions. Concomitant Therapy: Y ONC BCA CHEMO (AMB) 01/16/2019 02/06/2019 Day, Cycle Day 1, Cycle 1 Day 1, Cycle 2 CISplatin (PLATINOL) IV 100 mg/m2/dose 90 mg/m2/dose Evaluation of Port Verification Films: PORT films have been reviewed, please see ARIA for details. Changes in medical condition Pain: Mild pain in posterior throat, occasional flares. Tylenol rarely, has BMX but not using it now. . Secretions/Dryness: significant dysgeusia, moderate xerostomia (BSSW, water). Swallowing Function: slight improvement in swallowing, but gagging with many foods Nutrition: ~ 4 ensure per day and some soft solids. Skin: no issues GI: --Constipation/Diarrhea: using stool softeners, no issues. --N/V: persistent nausea. Ondansetron, Lorazepam. Hearing: decreased tinnitus Nutrition Assessment: Weight : 94.5 kg initial Change: 90.4 -> 88.9 Objective: There were no vitals filed for this visit. SKIN: no skin erythema MUCOSA: patchy mucositis posterior OP Assessment: No radiation toxicity, likely nausea/vomiting from chemotherapy. CTCAE TOXICITY GRADES (see below for hernandez): Site Grade Skin 0 Xerostomia 2 Pharyngeal Mucositis 1 Dysphagia 0 Hoarseness 0 Plan: ?? Continue RT per prescription ?? Pain control: ?? OTC medications prn ?? Skin: Jeans cream prn ?? Mucositis: ?? Pain control: see above ?? Oral hygiene consisting of baking soda/salt rinse at least 8 times daily ?? BMX ?? Alimentation: printed circuit board panels deburrer following ?? Weight decreased slightly, all by mouth at this time. No G tube. ?? N/V: Lorazepam, Zofran. To see Dr. George on Monday. CTCAE v4.03 scales for reference Skin 0 [...] Visit Dermatology Tg Velasco MD [facility] [address] [place], [place] [address] (Wo rk) documented as of this encounter Visit Diagnoses Diagnosis Tonsillar cancer Malignant neoplasm of tonsil documented in this encounter Care Teams Pointing Machine Operator Relationship Specialty Start Date End Date Gregg Garcia MD PCP - General General Internal Medicine 09/24/18 [address] [place] [address] documented as of this encounter
--- OUTSIDE RECORDS SUMMARY | 2021-09-13 17:59 | XMS_ITS | Encounter Summary ---
:1975 Author Organization [facility] [place] [address] Care Team Providers Name Role Phone Gregg Garcia MD Primary Care Provider Encounter Details Date Type Department Care Team Description 01/16/2019 Notes Only Hematology/Oncology at Avani Hill MSW [facility] OFFICE OF CARE [address] [place], [place] [address] [phone] Social History Tobacco Use Types Packs/Day Years [...] encounter Progress Notes Avani Hill MSW - 01/16/2019 9:12 AM EST Follow up with pt during first infusion today. Shena accompanied pt today. Pt reports he just got his full schedule and he will work his work schedule around this. indicated as a teacher she does have time so she can come in with him for some of his appointments/treatments. Pt and indicated the children were doing well. Offered support. Pt did not identify any new needs right now. Reminded him of LOG BUYER availability. Will follow for support and resources. documented in this encounter Plan of Treatment Upcoming Encounters Date Type Specialty Care Team Description 10/04/2021 Office Visit Dermatology Tg Velsaco MD [facility] ER [address] [place], [place] [address] (Wo rk) documented as of this encounter Visit Diagnoses Not on filedocumented in this encounter Care Teams Test Administrator Relationship Specialty Start Date End Date Gregg Garcia MD PCP - General General Internal Medicine 09/24/18 [address] [place] [address] documented as of this encounter
--- OUTSIDE RECORDS SUMMARY | 2021-09-13 17:59 | XMS_ITS | Encounter Summary ---
:1975 Author Organization [facility] [place] [address] Care Team Providers Name Role Phone Gregg Garcai MD Primary Care Provider Reason for Visit Reason Comments Chemotherapy Cycle 2, Day 1; Cisplat Treatment/Therapy Plan Authorization (Routine) - Closed Specialty Diagnoses / Procedures Referred By Contact Refer red To Contact Diagnoses Tonsil cancer Chris George MD [facility] Hem Onc Infusion Procedures TC PALONOSETRON HCL, 25MCG, INJECTION (ALOXI) TC APREPITANT, 1 MG, INJECTION TC CISPLATIN, POWDER OR SOLUTION, 10MG, INJECTION [facility] [address] [place] [address] [place] [phone] Fax: Referral ID Status Reason Start Date Expiration Date Visits Requ ested Visits Authorized [id number] Closed 12/28/2018 01/14/2020 5 5 Encounter Details Date Type Department Care Team Description 02/06/2019 Infusion Hematology Oncology at [facility] Tonsil cancer [address] [place] [address] [phone] Social History Tobacco Use Types [...] Sign Reading Time Taken Comments Blood Pressure 98/61 02/06/2019 8:45 AM EST Pulse 77 02/06/2019 8:45 AM EST Temperature 36.8 ??C (98.2 ??F) 02/06/2019 8:45 AM EST Respiratory Rate 18 02/06/2019 8:45 AM EST Oxygen Saturation 99% 02/06/2019 8:45 AM EST Inhaled Oxygen Concentration - - Weight 89 kg (196 lb 3.2 oz) 02/06/2019 8:45 AM EST Height 188 cm (6' 2.02) 02/06/2019 8:45 AM EST Body Mass Index 25.18 02/06/2019 8:45 AM EST documented in this encounter Progress Notes Zackary Reynolds RN - 02/06/2019 8:00 AM EST INFUSION THERAPY ADMINISTRATION NOTES DIAGNOSIS: Tonsil Caner CYCLE #:2 Day 1 REASON FOR VISIT: Cisplatin SUBJECTIVE Delvin states that he has slight nausea this morning, he has ondansetron and lorazepam at home- I reminded him that he should not take the ondansetron for 3 days. OBJECTIVE LAB DATA: WDL for today's infusion IV ACCESS: PIV left hand Pre administration: Chemotherapy orders independently verified for drug name, route, and dosage per patient's height, weight and BSA by ZACKARY REYNOLDS RN & [facility] onsite. REACTIONS (DESCRIPTION, TIME, INTERVENTION AND EFFECTIVENESS) none ASSESSMENT Delvin was awake, alert and tolerated treatment well. PLAN Return to clinic per routine. documented in this encounter Plan of Treatment Upcoming Encounters Date Type Specialty Care Team Description 10/04/2021 Office Visit Dermatology Tg Velasco MD [facility] [address], [place] [address] (Wo rk) documented as of this encounter Visit Diagnoses Diagnosis Tonsil cancer Malignant neoplasm of tonsil documented in this encounter Administered Medications Inactive Administered Medications - up to 3 most recent administrations Medication Order MAR Action Action Date Dose Rate Site aprepitant (CINVANTI) injection Given 02/06/2019 10:43 AM EST 13 0 mg Emul 130 mg 130 mg, Intravenous, ONCE, 1 dose, On Mon02/06/19 at 0915, Alternative administration of IV push over 2 minutes is a recommendation from the parts chaser. Administer prior to chemotherapy., Routine CISplatin (PLATINOL) 202 mg in New Bag 02/06/2019 11:00 AM EST 202 mg 301 mL/hr sodium chloride 0.9% 602 mL chemo infusion 202 mg (rounded from 201.6 mg = 90 mg/m2/dose ? 2.24 m2 Treatment Plan BSA from Recorded weight), Intravenous, ONCE, 1 dose, On Mon02/06/19 at 1015, Administer over 120 Minutes dexamethasone (DECADRON) injection 10 mg Given 02/06/2019 10:44 AM EST 10 mg 10 mg, Intravenous, ONCE, 1 dose, On Mon02/06/19 at 0915, Administer prior to chemotherapy magnesium sulfate 1g in dextrose 5% New Bag 02/06/2019 11:47 A M EST 1 g 100 mL/hr 100mL 1 g, Intravenous, EVERY HOUR, 2 doses, First dose on Mon02/06/19 at 1000, Last dose on Mon02/06/19 at 1100, Administer over 60 Minutes, Post - CISplatin New Bag 02/06/2019 10:49 AM EST 1 g 100 mL/hr palonosetron (ALOXI) injection 0.25 mg Given 02/06/2019 10:44 AM EST 0.25 mg 0.25 mg, Intravenous, ONCE, 1 dose, On Mon02/06/19 at 0915, Administer over 30 seconds. Administer prior to chemotherapy, Routine sodium chloride 0.9% infusion New Bag 02/06/2019 8:48 AM EST 1,000 mLs 500 mL/hr 1,000 mL, at 500 mL/hr, Intravenous, CONTINUOUS, Starting on Mon02/06/19 at 0915, Until Mon02/06/19 at 1114, Pre CISplatin sodium chloride 0.9% with New Bag 02/06/2019 10:59 AM EST 1,000 mL s 500 mL/hr potassium chloride 20 mEq infusion 1,000 mL, at 500 mL/hr, Intravenous, CONTINUOUS, Starting on Mon02/06/19 at 1100, Until Mon02/06/19 at 1259, Post - CISplatin documented in this encounter Care Teams Transmission Supervisor Relationship Specialty Start Date End Date Gregg Garcia MD PCP - General General Internal Medicine 09/24/18 [address] [place] [address] documented as of this encounter
--- OUTSIDE RECORDS SUMMARY | 2021-09-13 17:59 | XMS_ITS | Encounter Summary ---
:1975 Author Organization [facility] [place] [address] Care Team Providers Name Role Phone Gregg Garcia MD Primary Care Provider Encounter Details Date Type Department Care Team Description 01/23/2019 Office Visit Radiation Oncology at Mihir Vences MD Tonsil cancer [address] RADIATION ONCOLOGY [place] [phone] Social History Tobacco Use Types Packs/Day Years [...] encounter Progress Notes Mihir Vences MD - 01/23/2019 10:15 AM EST ON TREATMENT VISIT NOTE Delvin Rosario is a 43 y.o. 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 Current treatment dose: 12 Gy in 6 fractions. Anticipated total dose: 70 Gy in 35 fractions. Concomitant Therapy: Y ONC BCA CHEMO (AMB) 01/16/2019 Day, Cycle Day 1, Cycle 1 CISplatin (PLATINOL) IV 100 mg/m2/dose Evaluation of Port Verification Films: PORT films have been reviewed, please see RUBI for details. Changes in medical condition Pain: Mild discomfort, no roldan pain Secretions/Dryness: significant dysgeusia, no altered taste Swallowing Function: mild dysphagia at baseline, unchanged. He is having more gagging. Nutrition: ~ 4 ensure per day and some soft solids. Skin: no issues GI: --Constipation initially. Miralax / stool softener prn. Resolved --N/V: persistent nausea; occasional vomiting with gagging. Compazine (unclear if beneficial, last used yesterday morning). Hearing: developed tinnitus Nutrition Assessment: Weight : 94.5 kg initial Change: 94.5 -> 90.4 Objective: There were no vitals filed for this visit. SKIN: no skin erythema MUCOSA: no mucositis Assessment: No radiation toxicity, likely nausea/vomiting from chemotherapy. Zofran added today. CTCAE TOXICITY GRADES (see below for hernandez): Site Grade Skin 0 Xerostomia 0 Pharyngeal Mucositis 0 Dysphagia 0 Hoarseness 0 Plan: ?? Continue RT per prescription ?? Pain control: ?? OTC medications prn ?? Skin: Jeans cream prn ?? Mucositis: ?? Pain control: see above ?? Oral hygiene consisting of baking soda/salt rinse at least 8 times daily ?? Alimentation: utility hand following ?? Weight decreased, all by mouth at this time. No G tube. ?? N/V: Compazine prn, ADD Zofran. To see Dr. George on Monday. [...] Visit Dermatology Tg Velasco MD [facility] ER [address] [place], [place] [address] (Wo rk) documented as of this encounter Visit Diagnoses Diagnosis Tonsil cancer Malignant neoplasm of tonsil documented in this encounter Care Teams Certified Professional Midwife Relationship Specialty Start Date End Date Gregg Garcia MD PCP - General General Internal Medicine 09/24/18 [address] [place] [address] documented as of this encounter
--- OUTSIDE RECORDS SUMMARY | 2021-09-13 17:59 | XMS_ITS | Encounter Summary ---
:1975 Author Organization [facility] [place] [address] Care Team Providers Name Role Phone Gregg Garcia MD Primary Care Provider Encounter Details Date Type Department Care Team Description 02/15/2019 [facility] ONCOLOGY DEPT. [place] [phone] Social History Tobacco Use Types Packs/Day Years [...] Sign Reading Time Taken Comments Blood Pressure 98/62 02/15/2019 12:19 PM EST Pulse 69 02/15/2019 12:19 PM EST Temperature 36.9 ??C (98.4 ??F) 02/15/2019 12:19 PM EST Respiratory Rate 16 02/15/2019 12:19 PM EST Oxygen Saturation 98% 02/15/2019 12:19 PM EST Inhaled Oxygen Concentration - - Weight 87.1 kg (192 lb) 02/15/2019 12:19 PM EST Height 188 cm (6' 2.02) 02/15/2019 12:19 PM EST Body Mass Index 24.64 02/15/2019 12:19 PM EST documented in this encounter Progress Notes Chris George MD - 02/15/2019 12:00 PM EST Hematology/Oncology Clinic [facility] Patient Active Problem List Diagnosis ??? Drug-induced nausea and vomiting ??? Tonsil cancer cT1 N2 M0 p16(+), L tonsil A. Presenting with L neck mass; trivial tobacco history; small L tonsil tumor, EUA 12/10/2018: non-ker SCCa B. Definitive radiation 01/16/2019; high dose cisplatin X 2, c/b grade 3 nausea and gr 2 ototoxcity;switch to weekly carbo+paclitaxel 02/25 ??? Neck mass Med Onc checkup; today = day 10 of cycle 2. Radiation fraction # 21 of 35. ONCBCN ONCOLOGY (AMB) 01/16/2019 02/06/2019 Day, Cycle Day 1, Cycle 1 Day 1, Cycle 2 CISplatin (PLATINOL) IV 100 mg/m2/dose = 224 mg 90 mg/m2/dose = 202 mg Brandon is here for a medical oncology checkup. He has not been feeling at all well. He continues to be plagued by grade 2-3 nausea, which combined with complete lack of taste sensation has made eating nearly impossible. He vomits occasionally, but is nauseated almost all the time. We have tried to treat this with a very extensive drug regimen including [id number]-[id number] ondansetron, lorazepam at bedtime, dexamethasone in the mornings, and as of last night 10 mg of olanzapine in the evenings. His nausea was slightly better overnight and this morning, but he did experience sedation from this cocktail of medications. He is here today for intravenous hydration, intravenous dexamethasone, and a repeat dose of aprepitant. Because of the difficulty eating, his weight has been dropping. He is down about 5-6 kg versus pretreatment baseline. He reports that pain in the throat is not a major issue, although I do see that he looks slightly uncomfortable while swallowing during our interview. He is also been bothered by increasing ototoxicity. He has constant tinnitus, and has a decrease in hearing acuity. This is particularly notable for high frequencies. At the same time, he has become hypersensitive to noise. He has had no peripheral neuropathy of sensory nerves. Bowels are slightly sluggish but working nearly every day. Physical exam: He comes to the infusion room today accompanied by his . He looks tired and ill, pale. He is alert and conversant however. Oral exam shows a rim of exudative mucositis along the edge of the soft palate. Tumor is not visibletoday. No signs of intraoral thrush The neck mass is not distinctly palpable The chest is clear Cardiac exam is normal Abdomen is benign, quiet bowel sounds, no hepatosplenomegaly or masses Extremities are without clubbing cyanosis or edema Neurologic exam shows no abnormalities of motor or sensory function, although he does look quite tired Cranial nerves normal except for hearing; I find myself having to speak up slightly as we talk. Reflexes 1+ Labs from yesterday show stable chemistries with creatinine 1.07, stable electrolytes; CBC is normal, hemoglobin 12.0. Impression: P 16+ left tonsil cancer, responding to chemoradiation, but with grade 3 nausea lasting longer after the last dose of cisplatin than his typical, and with grade 2 ototoxicity. Overall this degree of chemotherapy toxicity is unacceptable. The nausea is clearly getting in the way of maintaining nutrition. Nausea is somewhat better with the addition of olanzapine, but at the cost of increased sedation. Intravenous hydration has proven helpful overall. Plan: 1. We will make arrangements for thrice weekly IV hydration as needed. 2. Continue current antiemetic drug regimen, including ondansetron, lorazepam, olanzapine, and dexamethasone in the mornings. 3. I propose switching from cisplatin chemotherapy to weekly lower dose paclitaxel plus carboplatin.We will start this close to when he would have been due for cycle 3 cisplatin, namely 02/25/2019. Wereviewed the potential toxicity of this chemotherapy regimen today. He wishes to proceed. 4. Continue close follow-up. Chris George MD, FACP rn new grad Hematology/Oncology Section [facility]/[address] [address] Voice recognition software used for this note; please excuse small business sales representative errors. I personally reviewed past medical, surgical, family medical histories, reviewed current medications, vital signs, labs, and performed full review of systems. These are documented below the narrative for clarity and succinctness. Outpatient Medications Marked as Taking for the 02/15/19 encounter (Office Visit) with Ze George MD Medication Sig Dispense Refill ??? OLANZapine (ZYPREXA) 10 mg Tablet Take 1 tablet by mouth nightly. 3 tablet 0 ??? ondansetron (ZOFRAN) 8 mg Tablet Take [...] Review of systems is negative for other POLE LIFT OPERATOR, bone, pulmonary, cardiac, GI, , extremity, neurologic, endocrine, skin, constitutional, emotional, or functional problems. Vitals Infusion from 02/13/2019 in Hematology Oncology at [facility] Weight 87.4 kg (192 lb 9.6 oz) Height 188 cm (6' 2.02) [copied] BSA (Calculated - sq m) 2.14 sq meters BMI (Calculated) 24.71 Temp 36.6 ??C (97.9 ??F) Temp src Tympanic Heart Rate 63 Heart Rate Source Right Resp 16 BP 109/60 BP Location Right arm Patient Position Sitting SpO2 100 % Karnofsky Score 80 Body surface area is 2.13 meters squared. Wt Readings from Last 3 Encounters: 02/15/19 87.1 kg (192 lb) 02/13/19 87.4 kg (192 lb 9.6 oz) 02/13/19 87.4 kg (192 lb 9.6 oz) No results found for this or any previous visit (from the past 72 hour(s)). ++++++++++++++++++++++++++++++++++++++++++++++++++++ documented in this encounter Miscellaneous Notes Addendum Note - Chris George MD - 02/15/2019 12:00 PM EST Addended by: CHRIS GEORGE on: 02/15/2019 02:27 PM Modules accepted: Orders documented in this encounter Plan of Treatment Upcoming Encounters Date Type Specialty Care Team Description 10/04/2021 Office Visit Dermatology Tg Velasco MD [facility] ER [address] [place], [place] [address] (Wo rk) documented as of this encounter Visit Diagnoses Diagnosis Tonsil cancer Malignant neoplasm of tonsil documented in this encounter Care Teams Green Ware Caster Relationship Specialty Start Date End Date Gregg Garcia MD PCP - General General Internal Medicine 09/24/18 [address] [place] [address] documented as of this encounter
--- OUTSIDE RECORDS SUMMARY | 2021-09-13 17:59 | XMS_ITS | Encounter Summary ---
:1975 Author Organization [facility] Address [place] [id number] Care Team Providers Name Role Phone Gregg Garcia MD Primary Care Provider Encounter Details Date Type Department Care Team Description 02/13/2019 Office Visit Radiation Oncology at Mihir Martin, Tonsillar cancer Robbie SARMIENTO [address] [place] [phone] RADIATION ONCOLOGY [phone] [place] [address] (Wo rk) Social History Tobacco Use Types [...] encounter Progress Notes Mihir Vences MD - 02/13/2019 10:30 AM EST ON TREATMENT VISIT NOTE Delvin Rosario is a 43 y.o. 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 Current treatment dose: 38 Gy in 19 fractions. Anticipated total dose: 70 Gy in 35 fractions. Concomitant Therapy: Y ONC BCA CHEMO (AMB) 01/16/2019 02/06/2019 Day, Cycle Day 1, Cycle 1 Day 1, Cycle 2 CISplatin (PLATINOL) IV 100 mg/m2/dose 90 mg/m2/dose Evaluation of Port Verification Films: PORT films have been reviewed, please see ARIA for details. Changes in medical condition Pain: Mild pain in posterior throat, occasional flares, /. Tylenol rarely, has BMX but not using it now. . Secretions/Dryness: significant dysgeusia, moderate xerostomia (BSSW, water). Swallowing Function: slight improvement in swallowing Nutrition: ~ 4 ensure per day Skin: no issues GI: --Constipation/Diarrhea: using stool softeners, no issues. --N/V: persistent nausea. Ondansetron, Lorazepam, dexamethasone Hearing: increased tinnitus Nutrition Assessment: Weight : 94.5 kg initial Change: 88.9 -> 87.6 Objective: There were no vitals filed for this visit. SKIN: no skin erythema MUCOSA: patchy mucositis posterior OP Assessment: Primary issue is nausea/vomiting and diminished oral intake. Re-simulate today given weight loss. CTCAE TOXICITY GRADES (see below for hernandez): [...] daily ?? BMX ?? Mucinex ?? Alimentation: field interviewer following ?? Weight decreased slightly, all by mouth at this time. No G tube. ?? N/V: Lorazepam, Zofran. To see Dr. George on Monday regarding addition of olanzapine, did not tolerate compazine. CTCAE v4.03 scales for reference Skin 0 [...] Tg Velasco MD [facility] [address] [place], [place] [address] (Wo rk) documented as of this encounter Visit Diagnoses Diagnosis Tonsillar cancer Malignant neoplasm of tonsil documented in this encounter Care Teams Wood Room Supervisor Relationship Specialty Start Date End Date Gregg Garcia MD PCP - General General Internal Medicine 09/24/18 [address] [place] [address] documented as of this encounter
--- OUTSIDE RECORDS SUMMARY | 2021-09-13 17:59 | XMS_ITS | Encounter Summary ---
:1975 Author Organization [facility] [place] [address] Care Team Providers Name Role Phone Gregg Garcia MD Primary Care Provider Reason for Visit Auth/Cert Specialty Diagnoses / Procedures Referred By Contact Refer red To Contact Diagnoses Head and neck cancer Procedures PRO LARYNGOSCOPY, DIRCT, OP SCOPE, BIOPSY LARYNGOSCOPY, MICROSCOPE, WITH BIOPSY (WRVU 3.55) Referral ID Status Reason Start Date Expiration Date Visits Requ ested Visits Authorized [id number] 1 1 Encounter Details Date Type Department Care Team Description 12/10/2018 Hospital Encounter Same Day Program at [place], [facility] [address] [place] [address] [place] [address] [phone] (Wo rk) Social History Tobacco Use Types [...] Sign Reading Time Taken Comments Blood Pressure 125/80 12/10/2018 10:00 AM EDT Pulse 85 12/10/2018 8:51 AM EDT Temperature 36.5 ??C (97.7 ??F) 12/10/2018 8:51 AM EDT Respiratory Rate 16 12/10/2018 8:51 AM EDT Oxygen Saturation 97% 12/10/2018 10:00 AM EDT Inhaled Oxygen Concentration - - Weight 95.3 kg (210 lb) 12/10/2018 6:11 AM EDT Height 188 cm (6' 2) 12/10/2018 6:11 AM EDT Body Mass Index 26.96 12/10/2018 6:11 AM EDT documented in this encounter Discharge Instructions Patient InstructionsTimothy David MD - 12/10/2018 8:41 AM EDT POST OPERATIVE INSTRUCTIONS ENDOSCOPY: Remain on a soft diet for the next 48 hours then resume your normal diet. You will experience throat discomfort which is expected, along with bloody phlegm which should subside in the next 72 hours. If the discomfort becomes progressively worse, or you develop chest pain, fever, chills and/or difficulty breathing, please call the office. For pain management, take acetaminophen (Tylenol) on a scheduled basis around the clock for the next72 hours. Afterwards, take the tylenol as needed. You may also take ibuprofen in between the tylenoldoses for breakthrough pain. Using throat lozenges as well as gargling your throat with an solution of 1 tsp of salt in 1 cup of water will also be soothing. If there are concerns, please call the office at [phone]. You have the following appointments to discuss your management: We will make arrangements for a follow up with you in the next 10 days. If you do not hear from my office, please call the ove number. documented in this encounter Medications at Time of Discharge Medication Sig Dispensed Refills Start Date End Date multivitamin (THERAGRAN) Take 1 tablet by 0 Tablet mouth daily. ubidecarenone (COENZYME Take by mouth 0 03/31/2021 Q10) 100 mg Tablet daily. ibuprofen (ADVIL;MOTRIN) 0 02/06/2006 09/26/2019 600 mg tablet documented as of this encounter H&P Notes Timothy David MD - 12/10/2018 7:27 AM EDT 24 hour update The patient's recent physical exam is reviewed. There are no changes to the physical findings or indications for the procedure.We reviewed again theperioperative course and post-operative instructions, as well as complications. He denies new symptoms from his throat standpoint. He has had a fair amount of GERD recently. Deniesnew constitutional symptoms. Left neck mass unchanged. Patient has proper understanding and the patient's questions are answered. Timothy David MD Otolaryngology-Head and Neck Surgery documented in this encounter Miscellaneous Notes Op Note - Timothy David MD - 12/10/2018 10:00 AM EDT [facility] Operative Note Patient Name: Delvin Rosario : [id number] MR#: [id number] Case Date: 12/10/2018 Surgeon: Surgeon(s) and Role: * Timothy David MD - Primary Preoperative diagnosis: Head and neck cancer Postoperative diagnosis: Head and neck cancer Procedure(s) (LRB): LARYNGOSCOPY, MICROSCOPE, WITH BIOPSY (WRVU 3.55) (Bilateral) BIOPSY, OROPHARYNX (WRVU 1.44) (Bilateral) NASAL ENDOSCOPY DIAGNOSTIC, UNILATERAL OR BILATERAL (WRVU 1.1) (Bilateral) Anesthesia: General Estimated Blood Loss: * No values recorded between 12/10/2018 7:57 AM and 12/10/2018 8:36 AM * Specimens removed during surgery: Order Name Source Comment Collection Info Order Time SPECIMEN TO PATHOLOGY OR #2. 32092 Head and neck cancer Lower Left tonsil biopsy 12/10/2018 8:12 AM Time specimen removed from patient: 8:08 AM Number of tissue samples (in container) 1 SPECIMEN TO PATHOLOGY OR #2. 42239 Head and neck cancer Upper Left tonsil biopsy 12/10/2018 8:12 AM Time specimen removed from patient: 8:10 AM Number of tissue samples (in container) 1 SPECIMEN TO PATHOLOGY OR #2. [id number] Head and neck cancer Lateral Left base of tongue biopsy 12/10/2018 8:12 AM Time specimen removed from patient: 8:10 AM Number of tissue samples (in container) 1 SPECIMEN TO PATHOLOGY OR #2. [id number] Head and neck cancer Right upper tonsil biopsy 12/10/2018 8:29 AM Time specimen removed from patient: 8:24 AM Number of tissue samples (in container) 1 SPECIMEN TO PATHOLOGY OR #2. [id number] Head and neck cancer Right base of tongue biopsy 12/10/2018 8:29 AM Time specimen removed from patient: 8:28 AM Number of tissue samples (in container) 1 Drains: * No LDAs found * Surgical Closure: na Disposition: awakened from anesthesia, extubated and taken to the recovery room in a stable condition, having suffered no apparent untoward event. 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 No obvious primary. Procedure Description: Patient was brought to the operating room and placed in the supine position. General anesthesia was secured in the patient's bed turned 90 degrees from anesthesia. An apneic looklaryngoscopy was performed using a Joseph, camera, telescopes for magnification, and tower for phot odocumentation. The examination of the oral cavity and pharynx was as his dentition is in good condition. Examination of the floor of mouth is intact and identify an area of ulceration with keratin debris in the mid to superior aspect of the left tonsil. Otherwise examination of the larynx including the epiglottis, aryepiglottic folds, false cords and true cords, piriform sinuses and posterior arytenoid space and esophageal inlet are all in good status. The patient is then intubated and the timeout completed. The nasal endoscopy is done after applying neurosurgical pledgets soaked in a mixture of 4% cocaine and Afrin. Good vasoconstriction is achieved. The nasal endoscopy is done because there was FDG uptake in the Waldeyer's ring tissues. The scope was placed to visualize normal endonasal contents. The nasopharyngeal mucosa appears unremarkable, there is no mucosal hypertrophy in the opening of the eustachian tubes is unremarkable. At that point we return to the site of concern in the left tonsil region. This is more visualized byplacing the Joseph scope in proper position. We also palpate this area and the fullness in the upper aspect of the left tonsil measuring about 1.5 cm and is not adherent to the mandible. It does extend to the adjoining soft palate. Multiple biopsies of that ulcer are taken. We then examined the contralateral tonsil which is unremarkable and shows no ulceration or hypertrophy and by palpation no concern. A Blind biopsy is taken. We also performed additional bilateral base of tongue biopsies although we did not appreciate any significant base of tongue lingual tissue hypertrophy. Hemostasis is achieved with a combination of neurosurgical pledgets soaked in topical adrenaline as well as bipolar cautery. At the completion of the case, confirming all counts are correct, the patient's anesthesia was reversed, the patient extubated and transferred to the recovery room stable condition. There were no operative difficulties encountered. Infection Bundle used? N/A Attestation: Case Date: 12/10/2018 s a compressing I was present and I participated during the entire procedure (does not need to include opening and closing). TIMOTHY DAVID MD 12/10/2018 Brief Op Note - Timothy David MD - 12/10/2018 8:38 AM EDT Brief Operative Note Patient Name: Delvin Rosario : [id number] MR#: [id number] Case Date: 12/10/2018 Surgeon: Surgeon(s) and Role: * Timothy David MD - Primary * Silverio Mendes Jr., MD - Resident Preoperative diagnosis: Head and neck cancer Postoperative diagnosis: Head and neck cancer Procedure(s) (LRB): LARYNGOSCOPY, MICROSCOPE, WITH BIOPSY (WRVU 3.55) (Bilateral) BIOPSY, OROPHARYNX (WRVU 1.44) (Bilateral) NASAL ENDOSCOPY DIAGNOSTIC, UNILATERAL OR BILATERAL (WRVU 1.1) (Bilateral) Anesthesia: General Findings: 2.5 cm firm area on superior aspect of left tonsil with 1 cm ulcer and papilliform tissue with food debris. Rest of exam normal. Large left zone 2 node Complications: none Intake: Intraprocedure Crystalloid Total None Transfusion No data found in the last 1 encounters. Output: Estimated Blood Loss: * No values recorded between 12/10/2018 7:57 AM and 12/10/2018 8:36 AM * Urine Output:: (no urine output recorded) Other Output: (no other output recorded) Drains: none Specimens removed during surgery: Order Name Source Comment Collection Info Order Time SPECIMEN TO PATHOLOGY OR #2. 35051 Head and neck cancer Lower Left tonsil biopsy 12/10/2018 8:12 AM Time specimen removed from patient: 8:08 AM Number of tissue samples (in container) 1 SPECIMEN TO PATHOLOGY OR #2. [id number] Head and neck cancer Upper Left tonsil biopsy 12/10/2018 8:12 AM Time specimen removed from patient: 8:10 AM Number of tissue samples (in container) 1 SPECIMEN TO PATHOLOGY OR #2. [id number] Head and neck cancer Lateral Left base of tongue biopsy 12/10/2018 8:12 AM Time specimen removed from patient: 8:10 AM Number of tissue samples (in container) 1 SPECIMEN TO PATHOLOGY OR #2. 22032 Head and neck cancer Right upper tonsil biopsy 12/10/2018 8:29 AM Time specimen removed from patient: 8:24 AM Number of tissue samples (in container) 1 SPECIMEN TO PATHOLOGY OR #2. [id number] Head and neck cancer Right base of tongue biopsy 12/10/2018 8:29 AM Time specimen removed from patient: 8:28 AM Number of tissue samples (in container) 1 Disposition: awakened from anesthesia, extubated and taken to the recovery room in a stable condition, having suffered no apparent untoward event. Condition: doing well without problems Attestation: Case Date: 12/10/2018 I performed this procedure without the involvement of a resident. (Please see the Surgical Encounter Summary for any Implant and Specimen details pertinent to this patient.) documented in this encounter Plan of Treatment Upcoming Encounters Date Type Specialty Care Team Description 10/04/2021 Office Visit Dermatology Tg Velasco MD [facility] [address] [place] [id number] (Wo rk) documented as of this encounter Procedures Procedure Name Priority Date/Time Associated Comments Diagnosis BIOPSY, OROPHARYNX Routine 12/10/2018 8:47 AM EDT NASAL ENDOSCOPY Routine 12/10/2018 8:47 AM DIAGNOSTIC, EDT UNILATERAL OR BILATERAL SPECIMEN TO Routine 12/10/2018 8:29 AM Results f or this PATHOLOGY EDT procedure are i n the results section. SPECIMEN TO Routine 12/10/2018 8:29 AM Results f or this PATHOLOGY EDT procedure are i n the results section. SURGICAL PATHOLOGY Routine 12/10/2018 8:12 AM Res ults for this REPORT EDT procedure are i n the results section. SPECIMEN TO Routine 12/10/2018 8:12 AM Results f or this PATHOLOGY EDT procedure are i n the results section. SPECIMEN TO Routine 12/10/2018 8:12 AM Results f or this PATHOLOGY EDT procedure are i n the results section. SPECIMEN TO Routine 12/10/2018 8:12 AM Results f or this PATHOLOGY EDT procedure are i n the results section. NASAL ENDOSCOPY 12/10/2018 7:44 AM Head and neck DIAGNOSTIC, EDT cancer UNILATERAL OR BILATERAL (WRVU 1.1) BIOPSY, OROPHARYNX 12/10/2018 7:44 AM Head and neck (WRVU 1.44) EDT cancer LARYNGOSCOPY, 12/10/2018 7:44 AM Head and neck MICROSCOPE, WITH EDT cancer BIOPSY (WRVU 3.55) documented in this encounter Results Specimen to Pathology (12/10/2018 8:29 AM EDT) Specimen Anatomical Collection Method Collection Time Receive d Time (Source) Location / / Volume Laterality AP Specimen 12/10/2018 8:29 AM 9 8:29 EDT AM EDT Narrative [facility] - 12/10/2018 8:29 AM EDT Specimen requisition ordered. ??Separate Pathology report to follow Timothy David MD PATHOLOGY/CYTOLOGY ORDERABLE S Performing Organization Address City/State/[place] [address] Specimen to Pathology (12/10/2018 8:29 AM EDT) Specimen Anatomical Collection Method Collection Time Receive d Time (Source) Location / / Volume Laterality AP Specimen 12/10/2018 8:29 AM 9 8:29 EDT AM EDT Narrative [facility] - 12/10/2018 8:29 AM EDT Specimen requisition ordered. ??Separate Pathology report to follow Timothy David MD PATHOLOGY/CYTOLOGY ORDERABLE S Performing Organization Address City/State/[place] [address] Surgical Pathology Report (12/10/2018 8:12 AM EDT) Component Value Ref Test Analysis Performed At [facility] Range Method Time Signature Surgical [id number] ? Location: [facility]; A [facility] Report The signing pathologist has (i) examined the relevant preparation(s) for the [facility] specimen(s) and (ii) rendered or confirmed the diagnosis(es) . H[facility] LAB[facility]ORY . ?Surgic al Pathology DIAGNOSIS A - Lower left tonsil, biopsy: - Squamous cell carcinoma, nonkeratinizing, [id number]. ?? (see Discussion.) B - Upper left tonsil, biopsy: - Squamous cell carcinoma, nonkeratinizing, [id number]. C - Lateral left base of tongue, biopsy: - Squamous mucosa, negative for malignancy. D - Right upper tonsil, biopsy: - Squamous mucosa, negative for malignancy. E - Right base of tongue, biopsy: - Squamous mucosa, negative for malignancy. Electronically signed by: ??MD Mehul, Lan Erwin Verified: ??12/14/2018 ?Pathologist Performed at: ??-[facility] Dept. 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 ADDITIONAL STUDIES Whole slide scan: outbound sales representative slide(s) Immunohistochemistry Studies: Formalin-fixed, paraffin-emb edded tissue sections [...] hology, histopathological criteria and other diagnostic tests. Block ? Antibody ?Result (Positive /Negative) A1 ? p16 ?Positive B1 ? p16 ?Positive CLINICAL INFORMATION Specimen Submitted: A - lower left tonsil B - upper left tonsil C - lateral left base of tongue D - right upper tonsil E - right base of tongue Clinical History and Diagnosis: Head and neck cancer . SPECIMEN PROCESSING A - Labeled/Fixative: Lower left tonsil, saline. Quantity/Size: Two, averaging 0.5 cm. Tissue Description: Soft, pink-white tissues. Sections/Processing: Submitted en toto ??in 1 cassette labeled A1. B - Labeled/Fixative: Upper left tonsil, saline. Quantity/Size: Two, averaging 0.5 cm. Tissue Description: Soft, pink-white tissues. Sections/Processing: Submitted en toto ??in 1 cassette labeled B1. C - Labeled/Fixative: Lateral left base of tongue, saline. Quantity/Size: Two, averaging 0.5 cm. Tissue Description: Soft, pink-white tissues. Sections/Processing: Submitted en toto ??in 1 cassette labeled C1. D - Labeled/Fixative: Right upper tonsil, saline. Quantity/Size: Three, ranging from 0.1-0.5 cm. Tissue Description: Soft, pink-white tissues. Sections/Processing: Submitted en toto ??in 1 cassette labeled D1. E - Labeled/Fixative: Right base of tongue, saline. Quantity/Size: Single, 0.4 cm. Tissue Description: Soft, pink-white tissue. Sections/Processing: Submitted en toto ??in 1 cassette labeled E1. ??sns Specimen (Source) Anatomical Collection Method Collection Time Re ceived Time Location / / Volume Laterality 12/10/2018 8:12 AM EDT Timothy David MD PATHOLOGY/CYTOLOGY ORDERABLE S Performing Organization Address City/State/ZIP [place] [address] Specimen to Pathology (12/10/2018 8:12 AM EDT) Specimen Anatomical Collection Method Collection Time Receive d Time (Source) Location / / Volume Laterality AP Specimen 12/10/2018 8:12 AM 9 8:12 EDT AM EDT Narrative [facility] - 12/10/2018 8:12 AM EDT Specimen requisition ordered. ??Separate Pathology report to follow Timothy David MD PATHOLOGY/CYTOLOGY ORDERABLE S Performing Organization Address City/[facility]/ZIP [place] [address] Specimen to Pathology (12/10/2018 8:12 AM EDT) Specimen Anatomical Collection Method Collection Time Receive d Time (Source) Location / / Volume Laterality AP Specimen 12/10/2018 8:12 AM 9 8:12 EDT AM EDT Narrative [facility] OR - 12/10/2018 8:12 AM EDT Specimen requisition ordered. ??Separate Pathology report to follow Timothy David MD PATHOLOGY/CYTOLOGY ORDERABLE S Performing Organization Address City/[facility]/ZIP [place] [address] Specimen to Pathology (12/10/2018 8:12 AM EDT) Specimen Anatomical Collection Method Collection Time Receive d Time (Source) Location / / Volume Laterality AP Specimen 12/10/2018 8:12 AM 9 8:12 EDT AM EDT Narrative [facility] OR - 12/10/2018 8:12 AM EDT Specimen requisition ordered. ??Separate Pathology report to follow Timothy David MD PATHOLOGY/CYTOLOGY ORDERABLE S Performing Organization Address City/[facility]/ZIP [place] [address] documented in this encounter Visit Diagnoses Not on filedocumented in this encounter Administered Medications Inactive Administered Medications - up to 3 most recent administrations Medication Order MAR Action Action Date Dose Rate Site acetaminophen (TYLENOL) tablet Given 12/10/2018 7:03 AM EDT 1,00 0 mg 1,000 mg 1,000 mg, Oral, ONCE, 1 dose, On Mon12/10/18 at 0715, Administer with SIP of H2O only., Day of Surgery (Day of Procedure), Routine acetaminophen (TYLENOL) tablet 1,000 mg Given 12/10/2018 9:00 AM EDT 1,000 mg 1,000 mg, Oral, EVERY 8 HOURS, First dose on Mon12/10/18 at 0900, Until Discontinued, Not to exceed 4,000 mg acetaminophen from all sources per 24 hours. Begin oral analgesics when SUPERVISING APPRAISER is discontinued., Routine lactated ringers infusion New Bag 12/10/2018 7:38 AM EDT 1,000 mL, at 100 mL/hr, Intravenous, CONTINUOUS, Starting on Mon12/10/18 at 0715, Until Mon12/10/18 at 1218, Day of Surgery (Day of Procedure) lidocaine (XYLOCAINE) 10 mg/mL (1 %) inj ection 3 mg 3 mg (0.3 mL), Subcutaneous, ONCE PRN, 1 dose, Startin g on Mon12/10/18 at 0655, Until Mon12/10/18 at 1218, for discomfor t with PIV insertion, Day of Surgery (Day of Procedure), Routine oxyCODONE (ROXICODONE) immediate release tablet Given 12/10/2018 9:04 AM EDT 5 mg 5 mg 5 mg, Oral, EVERY 4 HOURS PRN, Starting on Mon12/10/18 at 0840, Until Mon12/10/18 at 1218, Pain, moderate pain, May repeat 5 mg dose once in 30 minutes if pain not relieved. Begin oral analgesics when SUPERVISING APPRAISER is discontinued., Routine sodium chloride 0.9 % (flush) flush 5-20 mL 5-20 mL, Intravenous, EVERY 1 MIN PRN, S tarting on Mon12/10/18 at 0655, Until Mon12/10/18 at 1218, flush, Flush pertains t o all indwelling lines. Flush per protocol found in the job aid using the link provided on this m edication record., Day of Surgery (Day of Procedure), Routine documented in this encounter Active and Recently Administered Medications Times are shown in EDT. Scheduled Medication Order 12/08/2018 12/09/2018 12/10/2018 acetaminophen (TYLENOL) tablet 1,000 mg (COMPLETED) 0703 (Given - Provider: Geovanna Canela RN) 1,000 mg, Oral, ONCE, 1 dose, Mon 9 at 0715, Administer with SIP of H2O only., Day of Surgery (Day of Procedure), Routine acetaminophen (TYLENOL) tablet 1,000 mg 0900 (Given - Provider: Leny Salazar RN) 1,000 mg, Oral, EVERY 8 HOURS, First dos e on Mon12/10/18 at 0900, Until Discontinued, Not to exceed 4,000 mg acetaminophen from all sources per 24 hours. Begin oral analgesics when SUPERVISING APPRAISER is discontinued., Routine clindamycin (CLEOCIN) 600mg in dextrose 5% 50mL (COMPLETED) 0743 (Given - Provider: Lewis Bunch MD) 600 mg, Intravenous, 30 MIN PRE-OP, 1 do se, Mon12/10/18 at 0715, Administer over 20 Minutes, Day of Surgery (Day of Procedure), Indication for (Active or Suspected): Prophylaxis Continuous Medication Order 12/08/2018 12/09/2018 12/10/2018 lactated ringers infusion 0738 ( New Bag - Provider: Lewis Bunch MD)0855 (Stopped - Provider: Lewis Bunch MD) 1,000 mL, at 100 mL/hr, Intravenous, CON TINUOUS, Starting Mon12/10/18 at 0715, Until Mon12/10/18 at 1218, Day of Surgery (Day of Procedure) lactated ringers infusion 0900 ( Due) 1,000 mL, at 100 mL/hr, Intravenous, CON TINUOUS, Starting Mon12/10/18 at 0900, Until Mon12/10/18 at 1218 PRN Medication Order 12/08/2018 12/09/2018 12/10/2018 cocaine 4 % external solution (CANCELED) 0754 (Given - Provider: Timothy David MD - Comment: 4mL's of 4% Cocaine mixed with 30mL's of Afrin nasal solution, soaking nasal patties for nasal packing.) ONCE PRN, Starting Mon12/10/18 at 0754, Intra-Operative (Intra-P rocedure) EPINEPHrine (ADRENALIN) nasal solution (CANCELED) 0804 (Canceled Entry - Provider: Timothy David MD)0835 (Given - Provider: Timothy David MD - Comment: SOAKING surgical john for topical application to biopsy site.) ONCE PRN, Starting Mon12/10/18 at 0804, Until Mon12/10/18 at 1218, Intra- Operative (Intra-Procedure), Routine lidocaine (XYLOCAINE) 10 mg/mL (1 %) injection 3 mg 3 mg (0.3 mL), Subcutaneous, ONCE PRN, 1 dose, Starting Mon12/10/18 at 0655, Until Mon12/10/18 at 1218, for discomfort with PIV insertion, Day of Surgery (Day of Procedure), Routine oxyCODONE (ROXICODONE) immediate release tablet 5 mg 0904 (Given - Provider: Leny Salazar RN) 5 mg, Oral, EVERY 4 HOURS PRN, Starting Mon12/10/18 at 0840, Until Mon12/10/18 at 1218, Pain, moderate pain, May repeat 5 mg dose once in 30 minutes if pain not relieved. Begin oral analgesics when SUPERVISING APPRAISER is discontinued., Routine oxymetazoline (AFRIN) 0.05 % nasal spray (CANCELED) 0806 (Given - Provider: Timothy David MD - Comment: 4mL's of 4% Cocaine mixed with 30mL's of Afrin nasal solution, soaking nasal patties for nasal packing.) ONCE PRN, Starting Mon12/10/18 at 0806, Until Mon12/10/18 at 1218, Intra- Operative (Intra-Procedure), Routine sodium chloride 0.9 % (flush) flush 5-20 mL 5-20 mL, Intravenous, EVERY 1 MIN PRN, S tarting Mon12/10/18 at 0655, Until Mon12/10/18 at 1218, flush, Flush pertains to all indwelling lines. Flush per protocol found in the job aid using the link prov ided on this medication record., Day of Surgery (Day of Procedur e), Routine documented in this encounter Care Teams Chart Writer Relationship Specialty Start Date End Date Gregg Garcia MD PCP - General General Internal Medicine 09/24/18 [address] [place] [address] documented as of this encounter
--- OUTSIDE RECORDS SUMMARY | 2021-09-13 17:59 | XMS_ITS | Encounter Summary ---
:1975 Author Organization [facility] [place] [address] Care Team Providers Name Role Phone Gregg Garcia MD Primary Care Provider Reason for Referral Consultation (Routine) - Closed Specialty Diagnoses / Procedures Referred By Contact Refer red To Contact Hematology and Oncology Diagnoses Oropharynx cancer Timothy David [facility] Hem Onc [address] [place], [place] OTOLARYNGOLOGY DEPT. [id number] [place] [address] Referral ID Status Reason Start Date Expiration Date Visits V isits Requested Authorized [id number] Closed Consult, 12/10/2018 12/10/2019 1 1 Test & Treat Consultation (Routine) - Closed Specialty Diagnoses / Procedures Referred By Contact Refer red To Contact Radiation Oncology Diagnoses Oropharynx cancer Timothy David [facility] Rad Onc Treatment [facility] OTOLARY[facility]OLOG[facility] DEPT. [address] [place], [place] [id number] [place] [phone] Phone: Fax: Referral ID Status Reason Start Date Expiration Date Visits V isits Requested Authorized [id number] Closed Consult, 12/10/2018 12/10/2019 1 1 Test & Treat Encounter Details Date Type Department Care Team Description 12/10/2018 Orders Only Otolaryngology at [facility] Martha, Jennifer Oropharynx cancer [facility] Latia Kessler RN (Primary Dx) [place] [address] Social History Tobacco Use Types Packs/Day [...] 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
--- OUTSIDE RECORDS SUMMARY | 2021-09-13 17:59 | XMS_ITS | Encounter Summary ---
:1975 Author Organization [facility] [place] [address] Care Team Providers Name Role Phone Gregg Garcia MD Primary Care Provider Reason for Referral Consultation (Routine) - Closed Specialty Diagnoses / Procedures Referred By Contact Refer red To Contact Radiation Oncology Diagnoses Tonsil cancer Mihir Vences MD [facility] Office Procedures Simulation for Radiation Therapy Planning PRG RADIATION THERAPY PLAN COMPLEX PRG SPECIAL RADIATION TREATMENT PRG RADIATION TREATMENT AID(S) COMPLX CHG RADN PHYSICS CONSULT SPECIAL PRG INTEN MOD RADIOTHER PLAN W/DOSE VOL HIST [facility] [address] PRG RESPIRATORY MOTION MANAG EMENT PLANNING PRG MLC DEVICE INTENSTY MODUL RAD TX DSIGN/CONSTRCT PER IMRT PRG BASIC RADIATION DOSIMETRY CALCULATION PRG BASIC RADIATION DOSIMETRY CALCULATION PRO INTRA-FRACTION LOC & TRACKING TARGET, EA FRACTION RADIATION ONCOLOGY [place], [place] PRG CT GUIDE FOR PLACEMENT O F RADIATION THERAPY KAUR CHG RADN PHYSICS CONSULT CONTINUING PRG RADIATION MANAGEMENT, 5 TREATMENTS RADIOLOGY [place](S) [id number] [place] [phone] Fax: Referral ID Status Reason Start Date Expiration Date Visits V isits Requested Authorized [id number] Closed Consult, 01/02/2019 05/06/2019 1 1 Test & Treat Reason for Visit Reason Comments Radiation Consult Consultation (Routine) - Closed Specialty Diagnoses / Procedures Referred By Contact Refer red To Contact Radiation Oncology Diagnoses Oropharynx cancer Timothy David, [facility] Rad Onc MD [facility] Latia Adams [facility] [place] [address] [place] [phone] Phone: Fax: Referral ID Status Reason Start Date Expiration Date Visits V isits Requested Authorized [id number] Closed Consult, 12/10/2018 12/10/2019 1 1 Test & Treat Encounter Details Date Type Department Care Team Description 12/27/2018 Office Visit Radiation Oncology at Sophia Vences MD Tonsil cancer [facility] Latia quiros [place] [address] [place] [address] [phone] (Wo rk) Social History Tobacco Use Types [...] encounter Progress Notes Mihir Vences MD - 12/27/2018 11:00 AM EDT Images from the original note were not included. Radiation Oncology New Patient Visit PATIENT NAME: Delvin Rosario DATE OF : 1975 HISTORY OF PRESENT ILLNESS Delvin Rosario is a 43 y.o. 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 PCP initially noted lymph node ~ 2 years prior, and at that time CT imaging was interepreted as non- pathologic. Patient became aware of a left neck mass about a year later, but had no symptoms directly attributable to this mass. He saw hisPCP and after initial treatment for infectious etiologies a CT of the HN was performed, which revealed Staging & Therapy CT HN w/ contrast 09/21/18: left level II lymph node, 3.2 cm in maximal dimension, with concern for SALEEM. Pathologic appearing nodes also evident in left level II, IB and right level II. PET-CT 11/22/18: Hypermetabolic lymphadenopathy is present in the left neck at levels 2A, 2B, 1B and 3. Hypermetabolic lymph nodes are present in the right neck at levels 2A and 3. No definitive primary lesion. No distant metastatic disease. EUA with laryngoscopy, biopsy 12/10/18: -Findings: 2.5 cm firm area on superior aspect of left tonsil with 1 cm ulcer and papilliform tissuewith food debris. Rest of exam normal. Large left zone 2 node -Path: A - Lower left tonsil, biopsy: Squamous cell carcinoma, nonkeratinizing, [id number]. B - Upper left tonsil, biopsy: Squamous cell carcinoma, nonkeratinizing, [id number]. C - Lateral left base of tongue, biopsy: Squamous mucosa, negative for malignancy. D - Right upper tonsil, biopsy: Squamous mucosa, negative for malignancy. E - Right base of tongue, biopsy: Squamous mucosa, negative for malignancy. MRI Cervical spine +/- contrast 12/27/18: 1. ??Minimal degenerative changes in the cervical spine with no significant spinal canal or foraminal stenosis. Normal spinal cord signal. 2. ??Bilateral pathological cervical lymphadenopathy including a 3.5 cm lymph node in left level 2A with extracapsular spread invading the left sternocleidomastoid muscle. Other Pertinent Issues: None Currently, he has the following symptoms: Symptom Description Ongoing Intervention Oropharyngeal Pain No pain Tylenol / Ibuprofen prn Dysphagia Mild dysphagia associated with solids, occasionally with liquids. Xerostomia / Dysgeusia Denies Otalgia Denies Dental Issues Regular dental care Nutritional Intake Eating Normal Diet PEG Not present Neck Pain Occasional pain associated with left neck mass Neck Fibrosis / Lymphedema Denies HN sensory Changes Altered sensation under the chin over the past weeks over the past few weeks HN strength Changes Denies Voice Changes Occasional raspiness Social Issues Travels 10 min to [facility] Tobacco Not currently smoking Total Pack Years < 5 PY Other Headaches left worship/parietal region; constant, associated with light sensitivity, usually inthe morning and sometimes lasting. Started a few months prior. No prior history. ECOG PS: 0 Grade ECOG PERFORMANCE STATUS [...] filed for this visit. Physical Exam Constitutional: He is oriented to person, place, and time. He appears well- developed and well-nourished. HENT: Visual inspection of OC and OP revealed no evidence of suspicious masses or lesions. Palpation revealed no suspicious masses and no induration along the posterior tongue. Moisture good. Teeth in good repair Eyes: Pupils are equal, round, and reactive to light. EOM are normal. Neck: Palpation reveals large, fixed mass (~ 4 cm) left level II, with 1 cm mobile node right level II. Nooverlying skin changes. Otherwise no adenopathy in cervical, SCLV, ICLV jose eduardo basins. Cardiovascular: Normal rate. Pulmonary/Chest: Effort normal and breath sounds normal. Musculoskeletal: He exhibits no edema. Neurological: He is alert and oriented to person, place, and time. No cranial nerve deficit. He has altered sensation in the left submental area. Otherwise no CN deficits or other sensory/strength changes. Skin: No erythema. Psychiatric: He has a normal mood and affect. His behavior is normal. PROCEDURE Flexible laryngoscopy was performed. The left naris was anesthetized with aerosolized lidocaine, andthe laryngoscope was passed without difficulty. The nasopharynx was visualized and was without masses or lesions. A mass was associated with the mid left tonsil with some ulceration, no extension to preston lecula, base of tongue, RMT. The vocal cords apposed without difficulty. HISTORY Allergies as of 12/27/2018 - Review Complete 12/27/2018 Allergen Reaction Noted ??? Magnesium salicylate Rash 10/11/2018 Past Medical History: Diagnosis Date ??? High cholesterol Past Surgical History: Procedure Laterality Date ??? PRO BIOPSY OROPHARYNX Bilateral 12/10/2018 BIOPSY, OROPHARYNX (WRVU 1.44) performed by Timothy David MD at [facility] MAIN OR ??? PRO LARYNGOSCOPY, DIRCT, OP SCOPE, BIOPSY Bilateral 12/10/2018 LARYNGOSCOPY, MICROSCOPE, WITH BIOPSY (WRVU 3.55) performed by Timothy David MD at [facility] MAIN OR ??? PRO NASAL ENDOSCOPY, DX Bilateral 12/10/2018 NASAL ENDOSCOPY DIAGNOSTIC, UNILATERAL OR BILATERAL (WRVU 1.1) performed by Timothy David MD at [facility] MAIN OR Social History Socioeconomic History ??? Marital status: Spouse name: Shena ??? Number of children: 2 ??? Years of education: None ??? Highest education level: None Occupational History ??? None Social Needs ??? Financial resource strain: None ??? Food insecurity: Worry: None Inability: None ??? Transportation needs: Medical: None Non-medical: None Tobacco Use ??? Smoking status: Former Smoker Packs/day: 0.50 Years: 3.00 Pack years: 1.50 Types: Cigarettes Last attempt to quit: 2000 Years since quittin.8 ??? Smokeless tobacco: Never Used Substance and Sexual Activity ??? Alcohol use: Yes Frequency: 2-4 times a month Drinks per session: 1 or 2 Comment: once or twice a week ??? Drug use: Not Currently ??? Sexual activity: None Comment: deferred Lifestyle ??? Physical activity: Days per week: None Minutes per session: None ??? Stress: None Relationships ??? Social connections: Talks on phone: None Gets together: None Attends scientologist service: None Active member of club or organization: None Attends meetings of clubs or organizations: None Relationship status: None ??? Intimate partner violence: Fear of current or ex partner: None Emotionally abused: None Physically abused: None Forced sexual activity: None Other Topics Concern ??? None Social History Narrative ??? None Family History Problem Relation Age of Onset [...] to Visit Medication Sig Dispense Refill ??? vitamin E 100 unit Capsule Take 100 Units by mouth daily. ??? acetaminophen (TYLENOL) 325 mg Tablet Take 650 mg by mouth every 4 hours as needed for Pain. ??? atorvastatin (LIPITOR) 40 mg Tablet 0 ??? multivitamin (THERAGRAN) Tablet Take 1 tablet by mouth daily. ??? ubidecarenone (COENZYME Q10) 100 mg Tablet Take by mouth daily. ??? ibuprofen (ADVIL;MOTRIN) 600 mg tablet No current facility-administered medications on file prior to visit. IMAGING I have personally reviewed the imaging reports and images referenced in the oncologic hx and agree with the assessment as stated. Further pertinent imaging data below LABORATORY VALUES CONTRAINDICATIONS TO RADIOTHERAPY NO YES: Date, site, dose (women only) X Prior Radiotherapy X Collagen-Vascular dz X ASSESSMENT /PLAN HN CANCER Staging CT HN PET-CT MRI cervical spine EUA w/ DL ; Pathologic evaluation of the primary Further Staging None Required. He has apparent altered sensation corresponding to C2 on the left, but MRI of the cervical spine shows no evidence of pathology compression at the level of the root. I suspect that the transverse cervical nerve may be compressed by the jose eduardo mass. Therapy Discussion Delvin Rosario has been referred to discuss definitive radiotherapy. We discussed the relative risks and benefits of radiotherapy and surgical therapy. he has been discussed at [facility] tumor board and itwas recommended that he proceed with radiotherapy given the extent of his disease, evidence of SALEEM, and a retropharyngeal node on the left.These recommendations are in line with NCCN recommendations. We discussed the rationale and logistics (including simulation, planning, and treatment) of definitive radiotherapy. We discussed the risks of therapy, including but not limited to short term sequelae(fatigue, skin erythema, mucositis, dysphagia, ageusia, xerostomia, weight loss) and roasterman sequelae (tissue fibrosis, lymphedema, roasterman dysphagia potentially requiring a permanent feeding tube,xerostomia, osteoradionecrosis, increased risk of dental caries, esophageal stricture, and the possibility of significant damage to soft tissue, bone or skin requiring surgical or medical intervention). Mr. Rosario expressed an understanding of these risks. The patient had a number of questions regarding optimal therapy and potential side effects. These questions were answered to his satisfaction Concurrent chemotherapy recommendations: to discuss with medical oncology Therapy Decision Proceed with definitive chemoradiotherapy Supportive Care Prophylactic feeding tube: TBD Referral to Saddle Stitching Machine Operator / MEDIA SPECIALIST Dental Issues: pending OTHER ISSUES None Deanna Hall, RN - 12/27/2018 11:00 AM EDT RADIATION ONCOLOGY NURSING INITIAL NURSING ASSESSMENT IDENTIFICATION: Delvin Rosario is a 43 y.o. year-old male with left tonsillar cancer PRESENTING SYMPTOMS/CHIEF COMPLAINT: Presented with left neck mass REVIEW OF SYSTEMS: Review of Systems Constitutional: Positive for unexpected weight change (Lost 20 lbs months ago, but leveled off). HENT: Positive for sore throat, trouble swallowing and voice change. Eyes: Negative. Respiratory: Negative. Cardiovascular: Negative. Gastrointestinal: Negative. Endocrine: Negative. Genitourinary: Negative. Musculoskeletal: Negative. Skin: Negative. Neurological: Positive for headaches and numbness (Under jaw line). Hematological: Negative. Psychiatric/Behavioral: Negative. IN THE PAST 12 MONTHS HAVE YOU: Fallen more than one time? No Injured yourself as result of the fall? No Experienced difficulty with walking/problems with balance? No Do you use any assistive devices? No Any history of collagen vascular diseases:No Any Implanted Devices/Hardware: No If yes please put alert in ARIA patient summary Prior Radiotherapy: No Prior Chemotherapy: No Prior Hormone Therapy: No LEARNING ASSESSMENT REVIEWED: Yes ADVANCED DIRECTIVE: None, declined info PAIN ASSESSMENT: [0] out of 10 *eD-H Adult PCS Flow Sheet if 4 or above SOCIAL ASSESSMENT: See EDH social assessment information entered. Support Systems: Shena Barriers to treatment: Lives over an hour away - [facility] Referrals/Interventions: None at this time RADIATION SPECIFIC TEACHING: x [facility] Radiation Therapy and You x Site specific teaching : BSSW Other: PLAN: Per Dr. Vences documented in this encounter Plan of Treatment Upcoming Encounters Date Type Specialty Care Team Description 10/04/2021 Office Visit Dermatology Tg Velasco MD [facility] [address] [place], [place] [address] (Wo rk) Scheduled Orders Name Type Priority Associated Diagnoses Order S chedule Simulation for Radiation Procedures Routine Tonsil cancer Or dered: 12/28/2018 Therapy Planning documented as of this encounter Visit Diagnoses Diagnosis Tonsil cancer Malignant neoplasm of tonsil documented in this encounter Care Teams Parachute Cushion Installer Relationship Specialty Start Date End Date Gregg Garcia MD PCP - General General Internal Medicine 09/24/18 [address] [place] [address] documented as of this encounter
--- OUTSIDE RECORDS SUMMARY | 2021-09-13 17:59 | XMS_ITS | Encounter Summary ---
:1975 Author Organization [facility] [place] [address] Care Team Providers Name Role Phone Gregg Garcia MD Primary Care Provider Reason for Visit Auth/Cert Specialty Diagnoses / Procedures Referred By Contact Refer red To Contact Diagnoses Head and neck cancer Procedures PRO LARYNGOSCOPY, DIRCT, OP SCOPE, BIOPSY LARYNGOSCOPY, MICROSCOPE, WITH BIOPSY (WRVU 3.55) Referral ID Status Reason Start Date Expiration Date Visits Requ ested Visits Authorized [id number] 1 1 Encounter Details Date Type Department Care Team Description 12/10/2018 Surgery Main Operating Room Timothy David L ARYNGOSCOPY, [facility] MICROSCOPE, WITH BIOPSY [facility] (WRVU 3.55) [facility] DR Winters [place] [address] [place] [address] [phone] (Wo rk) Social History Tobacco Use Types [...] Sign Reading Time Taken Comments Blood Pressure 140/98 12/10/2018 8:51 AM EDT Pulse 85 12/10/2018 8:51 AM EDT Temperature 36.5 ??C (97.7 ??F) 12/10/2018 8:51 AM EDT Respiratory Rate 16 12/10/2018 8:51 AM EDT Oxygen Saturation 97% 12/10/2018 8:51 AM EDT Inhaled Oxygen Concentration - - Weight 95.3 kg (210 lb) 12/10/2018 6:11 AM EDT Height 188 cm (6' 2) 12/10/2018 6:11 AM EDT Body Mass Index 26.96 12/10/2018 6:11 AM EDT documented in this encounter Discharge Instructions Patient InstructionsGoTimothy mccormack MD - 12/10/2018 8:41 AM EDT POST [...] are concerns, please call the office at [phone]. You have the following appointments to discuss your management: We will make arrangements for a follow up with you in the next 10 days. If you do not hear from my office, please call the ab ove number. documented in this encounter Medications [...] David MD - 12/10/2018 10:00 AM EDT [facility] Operative Note Patient Name: Delvin Rosario : [id number] MR#: [id number] Case Date: 12/10/2018 Surgeon: Surgeon(s) and Role: [...] Order Time SPECIMEN TO PATHOLOGY OR #2. 05516 Head and neck cancer Lower Left tonsil biopsy 12/10/2018 8:12 AM Time specimen removed from patient: 8:08 AM Number of tissue samples (in container) 1 SPECIMEN TO PATHOLOGY OR #2. 04548 Head and neck cancer Upper Left tonsil biopsy 12/10/2018 8:12 AM Time specimen removed from patient: 8:10 AM Number of tissue samples (in container) 1 SPECIMEN TO PATHOLOGY OR #2. [id number] Head and neck cancer Lateral Left base of tongue biopsy 12/10/2018 8:12 AM Time specimen removed from patient: 8:10 AM Number of tissue samples (in container) 1 SPECIMEN TO PATHOLOGY OR #2. 74835 Head and neck cancer Right upper tonsil biopsy 12/10/2018 8:29 AM Time specimen removed from patient: 8:24 AM Number of tissue samples (in container) 1 SPECIMEN TO PATHOLOGY OR #2. 55413 Head and neck cancer Right base of [...] Operative Note Patient Name: Delvin Rosario : [id number] MR#: [id number] Case Date: 12/10/2018 Surgeon: Surgeon(s) and Role: [...] Order Time SPECIMEN TO PATHOLOGY OR #2. [id number] Head and neck cancer Lower Left tonsil biopsy 12/10/2018 8:12 AM Time specimen removed from patient: 8:08 AM Number of tissue samples (in container) 1 SPECIMEN TO PATHOLOGY OR #2. 77254 Head and neck cancer Upper Left tonsil biopsy 12/10/2018 8:12 AM Time specimen removed from patient: 8:10 AM Number of tissue samples (in container) 1 SPECIMEN TO PATHOLOGY OR #2. 35142 Head and neck cancer Lateral Left base of tongue biopsy 12/10/2018 8:12 AM Time specimen removed from patient: 8:10 AM Number of tissue samples (in container) 1 SPECIMEN TO PATHOLOGY OR #2. 17007 Head and neck cancer Right upper tonsil biopsy 12/10/2018 8:29 AM Time specimen removed from patient: 8:24 AM Number of tissue samples (in container) 1 SPECIMEN TO PATHOLOGY OR #2. 99435 Head and neck cancer Right base of [...] [facility] [address] BLANCHE DALAL-[place]MAT [place] [id number] (Wo rk) documented as of this encounter [...] AM 9 8:29 EDT AM EDT Narrative [facility] - 12/10/2018 8:29 AM EDT Specimen requisition ordered. ??Separate Pathology report to follow Timothy David MD PATHOLOGY/CYTOLOGY ORDERABLE S Performing Organization Address City/State/[place] [address] Specimen to Pathology (12/10/2018 8:29 AM EDT) Specimen Anatomical Collection Method Collection Time Receive d Time (Source) Location / / Volume Laterality AP Specimen 12/10/2018 8:29 AM 9 8:29 EDT AM EDT Narrative [facility] - 12/10/2018 8:29 AM EDT Specimen requisition ordered. ??Separate Pathology report to follow Timothy David MD PATHOLOGY/CYTOLOGY ORDERABLE S Performing Organization Address City/State/[place] [address] [facility] Surgical Pathology Report (12/10/2018 8:12 AM EDT) Component Value Ref Test Analysis Performed At [facility] gist Range Method Time Signature Surgical [id number] ? Location: [facility]; [facility]; A [facility] Report The signing pathologist has (i) examined the relevant preparation(s) for the [facility]ORIAL specimen(s) and (ii) rendered or confirmed the diagnosis(es) . HOSPITAL LABORATORY . ?Surgic al Pathology DIAGNOSIS A - Lower left tonsil, biopsy: - Squamous cell carcinoma, nonkeratinizing, [id number]. ?? (see Discussion.) B - Upper left tonsil, biopsy: - Squamous cell carcinoma, nonkeratinizing, [id number]. C - Lateral left base of tongue, biopsy: - Squamous mucosa, negative for malignancy. D - Right upper tonsil, biopsy: - Squamous mucosa, negative for malignancy. E - Right base of tongue, biopsy: - Squamous mucosa, negative for malignancy. Electronically signed by: ??MD Mehul, Lan Erwin Verified: ??12/14/2018 ?Pathologist Performed at: ??-[facility] Dept. 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 ADDITIONAL STUDIES Whole slide scan: client relations representative slide(s) Immunohistochemistry Studies: Formalin-fixed, paraffin-emb edded [...] MD PATHOLOGY/CYTOLOGY ORDERABLE S Performing Organization Address City/[facility]/[place] [address] Specimen to Pathology (12/10/2018 8:12 AM EDT) Specimen Anatomical Collection Method Collection Time Receive d Time (Source) Location / / Volume Laterality AP Specimen 12/10/2018 8:12 AM 9 8:12 EDT AM EDT Narrative [facility] - 12/10/2018 8:12 AM EDT Specimen requisition ordered. ??Separate Pathology report to follow Timothy David MD PATHOLOGY/CYTOLOGY ORDERABLE S Performing Organization Address [facility]/[place] [address] Specimen to Pathology (12/10/2018 8:12 AM EDT) Specimen Anatomical Collection Method Collection Time Receive d Time (Source) Location / / Volume Laterality AP Specimen 12/10/2018 8:12 AM 9 8:12 EDT AM EDT Narrative [facility] OR - 12/10/2018 8:12 AM EDT Specimen requisition ordered. ??Separate Pathology report to follow Timothy David MD PATHOLOGY/CYTOLOGY ORDERABLE S Performing Organization Address City/[facility]/[place] [address] Specimen to Pathology (12/10/2018 8:12 AM EDT) Specimen Anatomical Collection Method Collection Time Receive d Time (Source) Location / / Volume Laterality AP Specimen 12/10/2018 8:12 AM 9 8:12 EDT AM EDT Narrative [facility] OR - 12/10/2018 8:12 AM EDT Specimen requisition ordered. ??Separate Pathology report to follow Timothy David MD PATHOLOGY/CYTOLOGY ORDERABLE S Performing Organization Address City/[facility]/[place] [address] documented in this encounter [...] per 24 hours. Begin oral analgesics when VENTILATING ENGINEER is discontinued., Routine cocaine 4 % external solution Given 12/10/2018 7:54 AM EDT 4 mLs 19- S urgical Site ONCE PRN, Starting on Mon12/10/18 at 0754, Until Mon12/10/18 at 1218, Intra-Operative (Intra-Procedure) EPINEPHrine (ADRENALIN) nasal solution Given 12/10/2018 8:35 AM EDT 30 mLs ONCE PRN, Starting on Mon12/10/18 at 0804, Until Mon12/10/18 at 1218, Intra-Operative (Intra-Procedure), Routine lactated ringers infusion New Bag 12/10/2018 [...] pain not relieved. Begin oral analgesics when VENTILATING ENGINEER is discontinued., Routine oxymetazoline (AFRIN) 0.05 % Given 12/10/2018 8:06 AM 1 spray 19- Surgical Site nasal spray EDT ONCE PRN, Starting on Mon12/10/18 at 0806, Until Mon12/10/18 at 1218, Intra-Operative (Intra-Procedure), Routine sodium chloride 0.9 % (flush) [...] 12/10/2018 acetaminophen (TYLENOL) tablet 1,000 mg (COMPLETED) 07 (Given - Provider: Geovanna Canela RN) 1,000 [...] per 24 hours. Begin oral analgesics when VENTILATING ENGINEER is discontinued., Routine clindamycin (CLEOCIN) 600mg in [...] pain not relieved. Begin oral analgesics when VENTILATING ENGINEER is discontinued., Routine oxymetazoline (AFRIN) 0.05 % [...] Routine documented in this encounter Care Teams Principal Ios Developer Relationship Specialty Start Date End Date Gregg Garcia MD PCP - General General Internal Medicine 09/24/18 [address] [place] [address] documented as of this encounter
--- OUTSIDE RECORDS SUMMARY | 2021-09-13 17:59 | XMS_ITS | Encounter Summary ---
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 Mihir Vences MD Radiology Procedures Film Library Radiation Oncology Studies [facility] [place] [address] [place] [address] Referral ID Status Reason Start Date Expiration Date Visits V isits Requested Authorized [id number] Closed Specialty 02/13/2019 02/13/2020 1 1 Service Requested Encounter Details Date Type Department Care Team Description 02/13/2019 Ancillary Procedure Radiation Oncology Mihir Vences Malignant neoplasm at Robbie Shannon MD of overlapping sites [address] [place] [address] MEDICAL of tonsil [place], [place] CENTER [phone] RADIATION [phone] [place] [address] Social History Tobacco Use Types Packs/Day Years [...] MEDICAL [facility] ER [address] [place], [place] [address] (Wo rk) Pending Results Name Type Priority Associated Diagnoses Date/Ti me Film Library Imaging Storage Routine Malignant neoplasm of 01/2019 4:37 PM Radiation Oncology Only overlapping sites of E ST Studies tonsil documented as of this encounter Visit Diagnoses Diagnosis 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 Malignant neoplasm of tonsil documented in this encounter Administered Medications Inactive Administered Medications - up to 3 most recent administrations Medication Order MAR Action Action Date Dose Rate Site iohexol (OMNIPAQUE) 300 mg/mL Given 02/13/2019 4:12 PM EST 100 m Ls Left Arm solution 100 mL 100 mL, Intravenous, ONCE PRN, 1 dose, Starting on Mon02/13/19 at 1544, Until Mon02/13/19 at 1612, Per Protocol, Warning Vesicant/Irritant Medication , Routine documented in this encounter Care Teams Scuba Diving Teacher Relationship Specialty Start Date End Date Gregg Garcia MD PCP - General General Internal Medicine 09/24/18 [address] [facility] [place] [address] documented as of this encounter
--- OUTSIDE RECORDS SUMMARY | 2021-09-13 17:59 | XMS_ITS | Encounter Summary ---
:1975 Author Organization [facility] [place] [address] Care Team Providers Name Role Phone Gregg Garcia MD Primary Care Provider Encounter Details Date Type Department Care Team Description 01/22/2019 Unscheduled Encounter Radiation Oncology Lee Ann Ohara Tonsil cancer; at [facility] FRED Montoya Nausea without vomiting [address] [place] [phone] Social History Tobacco Use Types Packs/Day [...] Sign Reading Time Taken Comments Blood Pressure 113/60 01/22/2019 1:42 PM EST Pulse 69 01/22/2019 1:42 PM EST Temperature 36.7 ??C (98.1 ??F) 01/22/2019 1:41 PM EST Respiratory Rate 18 01/22/2019 1:41 PM EST Oxygen Saturation 98% 01/22/2019 1:41 PM EST Inhaled Oxygen Concentration - - Weight 91.9 kg (202 lb 9.6 oz) 01/22/2019 1:41 PM EST Height - - Body Mass Index 26 01/18/2019 8:14 AM EST documented in this encounter Progress Notes Katy Ohara RN - 01/22/2019 1:41 PM EST Radiation Oncology Nursing on Treatment Note Patient has received 1000 cGy to the tonsil in 5 Fxs for treatment of tonsil cancer. Side effects that patient is experiencing: Nausea not controlled with prochlorperazine. Decreased appetite/intake. Assessment: Please see vitals taken this encounter. Patient reports that he was feeling fine until Sat/Sun then has been restless with nausea which has impacted his intake. Continues to drink liquids well but that is becoming difficult due to nausea as well. Denies any pain whatsoever. Has taken prochlorperazine without effect. Tried not taking prochlorperazine yesterday and thought he felt a little better in general but continued to have nausea. Anticipatory guidance/ interventions: Reviewed with patient that this is more likely from chemo thanradiation. Carol Guevara, RN , med onc triage consulted. She has sent message to Dr. George for guidance. Other: 16:15-Dr. Vences updated via [employer] as we have not yet heard back from Dr. George. Dr. Vences ordered ondansetron 8 mg every 8 hours oral prn. Telephone call to patient to instruct regarding new ondansetron. Plan: Weekly MD otv with Dr. Vences tomorrow. Nursing otv daily prn. Patient scheduled for IV hydration tomorrow. documented in this encounter Plan of Treatment Upcoming Encounters Date Type Specialty Care Team Description 10/04/2021 Office Visit Dermatology Tg Velasco MD [facility] DR BL[address]HE DALAL[address] [place], [place] [address] (Wo rk) documented as of this encounter Visit Diagnoses Diagnosis Tonsil cancer Malignant neoplasm of tonsil Nausea without vomiting documented in this encounter Care Teams Overhead Door Technician Relationship Specialty Start Date End Date Gregg Garcia MD PCP - General General Internal Medicine 09/24/18 [address] [place] [address] documented as of this encounter
--- OUTSIDE RECORDS SUMMARY | 2021-09-13 17:59 | XMS_ITS | Encounter Summary ---
:1975 [address] [facility] [place] [address] Care Team Providers Name Role Phone Gregg Garcia MD Primary Care Provider Encounter Details Date Type Department Care Team Description 01/02/2019 Notes Only Radiation Oncology at [facility] OFFICE OF CARE [address] [place] [phone] Social History Tobacco Use Types Packs/Day Years [...] encounter Progress Notes Avani Hill MSW - 01/02/2019 9:34 AM EDT Reason for Referral: Brief assessment of social and emotional needs. Met with pt after his sim today. Social Supports: Pt identified his Shena of 8 years as his primary support. They have 2 childrenages 2 and 5. Pt also identified his mother as a support. Living Situation/Daily Activities/Transportation: Pt and manage their daily chores and activities. He does not expect any issues with transportation. 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 He has some flexibility with his schedule. He indicated he does have benefits through his work should he need to take some time. His also works. He has [employer] for insurance. Advance Directives: Pt has not completed his advance directive. He is interested in completing his document. He stated he has a good understanding of the process. Pt given a copy of the Vt booklet/formand offered assistance with the process. Utilization of Community Resources: None at this time. Adjustment to Illness/Mental Health Issues: Pt indicated he is coping the best he can. He also indicated the same for his . He is well supported by his family. Identified Needs: Pt did not identify any specific needs at this time. Referrals: None at this time. Plan: Informed pt of ROLL LINE OPERATOR availability. Will follow for support and resources. documented in this encounter Plan of Treatment Upcoming Encounters Date Type Specialty Care Team Description 10/04/2021 Office Visit Dermatology Tg Velasco MD [facility] ER DR BL[address]HE DALAL[address] [place], [place] [address] (Wo rk) documented as of this encounter Visit Diagnoses Not on filedocumented in this encounter Care Teams Quality Management Nurse Relationship Specialty Start Date End Date Gregg Garcia MD PCP - General General Internal Medicine 09/24/18 [address] [facility] 1 [place] [address] documented as of this encounter
--- OUTSIDE RECORDS SUMMARY | 2021-09-13 17:59 | XMS_ITS | Encounter Summary ---
:1975 Author Organization [facility] [place] [address] Care Team Providers Name Role Phone Gregg Garcia MD Primary Care Provider Reason for Visit Reason Comments IV Medication Cycle 1 day 3 Treatment/Therapy Plan Authorization (Routine) - Closed Specialty Diagnoses / Procedures Referred By Contact Refer red To Contact Diagnoses Tonsil cancer Chris George MD [facility] Hem Onc Infusion Procedures TC PALONOSETRON HCL, 25MCG, INJECTION (ALOXI) TC APREPITANT, 1 MG, INJECTION TC CISPLATIN, POWDER OR SOLUTION, 10MG, INJECTION [address] [place] [phone] Fax: Referral ID Status Reason Start Date Expiration Date Visits Requ ested Visits Authorized [id number] Closed 12/28/2018 01/14/2020 5 5 Encounter Details Date Type Department Care Team Description 01/30/2019 Infusion Hematology Oncology at [facility] Tonsil cancer [address] [place] [phone] Social History Tobacco Use Types [...] Sign Reading Time Taken Comments Blood Pressure 112/60 01/30/2019 8:14 AM EST Pulse 75 01/30/2019 8:14 AM EST Temperature 36.9 ??C (98.4 ??F) 01/30/2019 8:14 AM EST Respiratory Rate 18 01/30/2019 8:14 AM EST Oxygen Saturation 98% 01/30/2019 8:14 AM EST Inhaled Oxygen Concentration - - Weight 89.5 kg (197 lb 6.4 oz) 01/30/2019 8:14 AM EST Height 188 cm (6' 2.02) 01/30/2019 8:14 AM EST Body Mass Index 25.33 01/30/2019 8:14 AM EST documented in this encounter Progress Notes Luma Ragsdlae RN - 01/30/2019 8:00 AM EST INFUSION THERAPY ADMINISTRATION NOTES DIAGNOSIS: Tonsillar cancer REASON FOR VISIT: Hydration & antiemetic SUBJECTIVE Delvin states that he has slight nausea this morning OBJECTIVE IV ACCESS: PIV REACTIONS (DESCRIPTION, TIME, INTERVENTION AND EFFECTIVENESS) ASSESSMENT Delvin was awake, alert and tolerated treatment well. PLAN Return to clinic per routine. documented in this encounter Plan of Treatment Upcoming Encounters Date Type Specialty Care Team Description 10/04/2021 Office Visit Dermatology Tg Velasco MD [facility] DR BL[address] D[address] [place], [place] [address] (Wo rk) documented as of this encounter Visit Diagnoses Diagnosis Tonsil cancer Malignant neoplasm of tonsil documented in this encounter Administered Medications Inactive Administered Medications - up to 3 most recent administrations Medication Order MAR Action Action Date Dose Rate Site aprepitant (CINVANTI) injection Given 01/30/2019 8:43 AM EST 130 mg Emul 130 mg 130 mg, Intravenous, ONCE, 1 dose, On Mon01/30/19 at 0830, Alternative administration of IV push over 2 minutes is a recommendation from the center aisle cashier., Routine dexamethasone (DECADRON) tablet 4 mg Given 01/30/2019 8:43 AM EST 4 mg 4 mg, Oral, ONCE, 1 dose, On Mon01/30/19 at 0830, Routine sodium chloride 0.9% infusion New Bag 01/30/2019 8:43 AM EST 1,000 mLs 500 mL/hr 1,000 mL, at 500 mL/hr, Intravenous, CONTINUOUS, Starting on Mon01/30/19 at 0830, Until Mon01/30/19 at 1029 documented in this encounter Care Teams Asphalt Distributor Tender Relationship Specialty Start Date End Date Gregg Garcia MD PCP - General General Internal Medicine 09/24/18 [address] [place] [address] documented as of this encounter
--- OUTSIDE RECORDS SUMMARY | 2021-09-13 17:59 | XMS_ITS | Encounter Summary ---
:1975 Author Organization [facility] [place] [address] Care Team Providers Name Role Phone Gregg Garcia MD Primary Care Provider Reason for Referral Diagnostic Test (Routine) - Closed Specialty Diagnoses / Procedures Referred By Contact Refer red To Contact Radiology Diagnoses Tonsil cancer Silverio Mendes Jr., [facility] Rad Mri Procedures MRI Cervical Spine wwo Contrast MRI Angiogram Neck wwo Contrast (Generic) [facility] [place] [address] [place] [address] Referral ID Status Reason Start Date Expiration Date Visits V isits Requested Authorized [id number] Closed Specialty 12/18/2018 12/18/2019 1 1 Service Requested Reason for Visit Reason Comments Follow-up laryngoscopy with biopsy 12-10-18, go over path results Encounter Details Date Type Department Care Team Description 12/18/2018 Office Visit Otolaryngology at [facility] Oropharynx cancer; [facility] Latia Weinstein [place] [address] [facility] [phone] CENTER OTOLARYNGOLOGY DEPT. [place], [place] [address] Social History Tobacco Use Types [...] - Inhaled Oxygen Concentration - - Weight 96.5 kg (212 lb 12.8 oz) 12/18/2018 3:46 PM EDT actual Height 188 cm (6' 2) 12/18/2018 3:46 PM EDT Body Mass Index 27.32 12/18/2018 3:46 PM EDT documented in this encounter Progress Silverio Santos Jr., MD - 12/18/2018 3:00 PM EDT [facility] OTOLARYNGOLOGY - HEAD AND NECK TUMOR CLINIC FOLLOW UP NOTE Delvin Rosario is a 43 y.o. male followed for tonsil cancer with bilateral neck lymphadenopathy. New since last visit: Continues to have difficulty swallowing but is maintaining his weight. Doing well s/p DL with bx but did have a cold afterwards He complains of new numbness for the past week in his central upper neck PROBLEM LIST Patient Active Problem List Diagnosis Code ??? Neck mass R22.1 PAST MEDICAL HISTORY No past medical history on file. SOCIAL HISTORY Social History Tobacco Use ??? Smoking status: Former Smoker Packs/day: 0.50 Years: 3.00 Pack years: 1.50 Types: Cigarettes Last attempt to quit: 2000 Years since quittin.8 ??? Smokeless tobacco: Never Used Substance Use Topics ??? Alcohol use: Yes Comment: once or twice a week MEDICATIONS Current Outpatient Medications on File Prior to Visit Medication Sig Dispense Refill ??? atorvastatin (LIPITOR) 40 mg Tablet 0 ??? multivitamin (THERAGRAN) Tablet Take 1 tablet by mouth daily. ??? ubidecarenone (COENZYME Q10) 100 mg Tablet Take by mouth daily. ??? ibuprofen (ADVIL;MOTRIN) 600 mg tablet No current facility-administered medications on file prior to visit. ALLERGIES Allergies Allergen Reactions ??? Magnesium Salicylate Rash ROS Pertinent positive findings discussed above. No other findings on review of constitutional visual, cardiovascular, respiratory, gastrointestinal, genitourinary, musculoskeletal, dermatologic, neurological, psychiatric, endocrine, hematologic or immunologic systems. PHYSICAL EXAMINATION Vitals: Height 188 cm (6' 2), weight 96.5 kg (212 lb 12.8 oz). General: Well developed, no distress Head/face: Normocephalic, atraumatic Oral cavity: Normal exam of the lips, teeth/gums, floor of mouth, tongue. Normal oral mucosa. Normal palate. Oropharynx: Normal soft palate, lateral pharyngeal wall, posterior pharynx. Left tonsil mildly erythematous, right tonsil normal. Neck: Cervical adenopathy noted on the left side of neck, no masses, normal thyroid. Trachea midline. Resp: Normal speech, no stridor, normal respirations. Skin: Normal skin survey of the head and neck. MSK: No trismus, normal neck range of motion Neuro: AxOx3; CN II-XII is grossly intact. Psych: Normal mood and affect. Responds appropriately to questions. PROCEDURES N/A REVIEW OF IMAGES EXAMINATION: NM PET CT STANDARD PLUS HEAD AND NECK ?? 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 No visible primary noted. Please image for staging ? TECHNIQUE: Following IV injection of 95-qwvvph-2-deoxyglucose (FDG) a standard uptake of approximately 60 minutes, a noncontrast CT scan followed by a PET scan were acquired from the top of head to mid thighs. The noncontrast CT was used for anatomic localization and photon attenuation correction of the PET scan. ?? Blood glucose level: 110 (mg/dL) ?? FDG dose: 14.2 mCi ?? COMPARISON: CT scan neck September 21, 2018 ?? FINDINGS: ?? HEAD/NECK: Hypermetabolic lymphadenopathy is present in the left neck at levels 2A, 2B, 1B, and 3. Hypermetabolic lymph nodes are present [...] No abnormal activity is present. ?? SKELETON/EXTREMITIES: No abnormal activity is present. ?? IMPRESSION Hypermetabolic metastatic lymphadenopathy in the neck bilaterally. No definite primary lesion is identified. No distant metastases. ?? Thank you for letting us participate in the care of this patient. For questions regarding this report, please contact the number below. SSMENT/RECOMMENDATIONS Delvin Rosario is a 43 y.o. male who is here for follow-up for a left-sided neck mass. We discussed that his PET scan showed bilateral lymphadenopathy but we are concerned about a left parapharyngeal lymph node that could be very difficult to remove surgically. Biopsy showed left tonsillar cancer thatwould otherwise be best treated with with TORS. We will discuss his case with Dr. Gutierrez to see if he would be a good candidate for TORS but otherwise we will present his case at tumor board this . Recommendations: -Will discuss his case at tumor board and go from there -Will schedule an MRI to be done next morning Silverio Mendes Jr, MD 12/18/2018 Timothy David MD - 12/18/2018 3:00 PM EDT ENT ATTENDING STAFF NOTE: I personally reviewed the above note including the documented history. As noted, patient has done reasonably well post diagnostic microlaryngoscopy and biopsies. Complains of some numbness on the skin in the anterior midline of the neck. He denies any numbness along the sides of the neck. He denies any change in the mobility of his neck. No changes in his swallowing denies any referred otalgia. He denies any new fevers or chills. Complains of fullness close to his left ear. Pathology from the biopsies was reviewed: A - Lower left tonsil, biopsy: ??- Squamous cell carcinoma, nonkeratinizing, [id number]. ?(see Discussion.) B - Upper left tonsil, biopsy: ??- Squamous cell carcinoma, nonkeratinizing, [id number]. C - Lateral left base of tongue, biopsy: ??- Squamous mucosa, negative for malignancy. D - Right upper tonsil, biopsy: ??- Squamous mucosa, negative for malignancy. E - Right base of tongue, biopsy: ??- Squamous mucosa, negative for malignancy. I examined the patient, as well as reviewed personally all additional investigations. I agree with the outlined plan. I reviewed again with the patient the imaging nuclear the PET/CT. He has an upcoming consultation with both medical and radiation oncology. We will discuss his management at this point. I think planning a robotic approach would be somewhat challenging on the basis of his retropharyngeal node distribution. Timothy David MD documented in this encounter Plan of Treatment Upcoming Encounters Date Type Specialty Care Team Description 10/04/2021 Office Visit Dermatology Tg Velasco MD [facility] ER DR [address] [place] [id number] (Wo rk) documented as of this encounter Results MRI Cervical Spine wwo Contrast (12/27/2018 7:34 AM EDT) Anatomical Region Laterality Modality C-spine Magnetic Resonance Specimen (Source) Anatomical Location Collection Method / Collectio n Time Received Time / Laterality Volume Impressions 12/27/2018 9:29 AM EDT 1. ??Minimal degenerative changes in the cervical spine with no significant spinal canal or foraminal stenosis. Norm al spinal cord signal. 2. ??Bilateral pathological cervical lym phadenopathy including a 3.5 cm lymph node in left level 2A with extracapsular spread invading the left sternocleidomastoid muscle. Thank you for letting us participate in the care of this patient. For questions regarding this report, please contact e number below. ? Narrative 12/27/2018 9:29 AM EDT EXAMINATION: MRI CERVICAL SPINE WWO CONTRAST CLINICAL HISTORY: left tonsil SCCa with bilateral lymphadenopathy. Now with curious new central upper neck numbness. ?nerve impingement TECHNIQUE: MRI of the cervical spine was performed before and after the intravenous administration of 19cc Dotarem. COMPARISON: CT scan of the neck 09/21/2018, PET/CT sc an 11/22/2018 FINDINGS: The vertebral bodies are maintained in h eight and there is no subluxation. Straightening of usual cervical lordosis is likely positional in nature. Mild loss of T2 bright disc signal in the C2- 3 through C5-6 intervertebral discs with no significant loss of disc space height . No marrow signal abnormality. ??The spinal cord is normal in signal and karan cristina. Multiple bilateral enlarged cervical lym ph nodes as seen on the recent PET CT scan. This includes a 3.5 cm left level 2A as logical node which has ill-defined, infiltrative borders with i nvasion of the left sternocleidomastoid muscle. C2-3: No significant spinal canal or for aminal stenosis. C3-4: No significant spinal canal or for aminal stenosis. C4-5: No significant spinal canal or for aminal stenosis. C5-6: No significant spinal canal or for aminal stenosis. C6-7: No significant spinal canal or for aminal stenosis. C7-T1: No significant spinal canal or fo raminal stenosis. Procedure Note Katie Ferraro MD - 12/27/2018Formatting o f this note might be different from the original. EXAMINATION: MRI CERVICAL SPINE WWO CONT RAST CLINICAL HISTORY: left tonsil SCCa with bilateral lymphadenopathy. Now with curious new central upper neck numbness. ?nerve impingement TECHNIQUE: MRI of the cervical spine was performed before and after the intravenous administration of 19cc Dotarem. COMPARISON: CT scan of the neck 09/21/2018, PET/CT sc an 11/22/2018 FINDINGS: The vertebral bodies are maintained in h eight and there is no subluxation. Straightening of usual cervical lordosis is likely positional in nature. Mild loss of T2 bright disc signal in the C2- 3 through C5-6 intervertebral discs with no significant loss of disc space height . No marrow signal abnormality. The spinal cord is normal in signal and karan cristina. Multiple bilateral enlarged cervical lym ph nodes as seen on the recent PET CT scan. This includes a 3.5 cm left level 2A as logical node which has ill-defined, infiltrative borders with i nvasion of the left sternocleidomastoid muscle. C2-3: No significant spinal canal or for aminal stenosis. C3-4: No significant spinal canal or for aminal stenosis. C4-5: No significant spinal canal or for aminal stenosis. C5-6: No significant spinal canal or for aminal stenosis. C6-7: No significant spinal canal or for aminal stenosis. C7-T1: No significant spinal canal or fo raminal stenosis. IMPRESSION 1. Minimal degenerative changes in the c ervical spine with no significant spinal canal or foraminal stenosis. Norm al spinal cord signal. 2. Bilateral pathological cervical lymph adenopathy including a 3.5 cm lymph node in left level 2A with extracapsular spread invading the left sternocleidomastoid muscle. Thank you for letting us participate in the care of this patient. For questions regarding this report, please contact th e number below. Timothy David MD IMG MRI ORDERABLES documented in this encounter Visit Diagnoses Diagnosis Oropharynx cancer Malignant neoplasm of oropharynx, unspec ified site Tonsil cancer Malignant neoplasm of tonsil Tonsil cancer Malignant neoplasm of tonsil documented in this encounter Care Teams Magnetometer Operator Relationship Specialty Start Date End Date Gregg Garcia MD PCP - General General Internal Medicine 09/24/18 [address] [place] [address] documented as of this encounter
--- OUTSIDE RECORDS SUMMARY | 2021-09-13 17:59 | XMS_ITS | Encounter Summary ---
:1975 Author Organization [facility] [place] [address] Care Team Providers Name Role Phone Gregg Garcia MD Primary Care Provider Reason for Referral Diagnostic Test (Routine) - Closed Specialty Diagnoses / Procedures Referred By Contact Refer red To Contact Radiology Diagnoses Tonsil cancer Silverio Mendes Jr., [facility] Rad Mri Procedures MRI Cervical Spine wwo Contrast MRI Angiogram Neck wwo Contrast (Generic) [facility] [place] [address] [place] [address] Referral ID Status Reason Start Date Expiration Date Visits V isits Requested Authorized [id number] Closed Specialty 12/18/2018 12/18/2019 1 1 Service Requested Reason for Visit Diagnostic Test (Routine) - Closed Specialty Diagnoses / Procedures Referred By Contact Refer red To Contact Radiology Diagnoses Tonsil cancer Silverio Mendes Jr., [facility] Rad Mri Procedures MRI Cervical Spine wwo Contrast MRI Angiogram Neck wwo Contrast (Generic) [facility] [place] [address] [place] [address] Referral ID Status Reason Start Date Expiration Date Visits V isits Requested Authorized [id number] Closed Specialty 12/18/2018 12/18/2019 1 1 Service Requested Encounter Details Date Type Department Care Team Description 12/27/2018 Hospital Encounter MRI at [facility] Timothy David, Tonsil cancer [facility] [place] [address] OTOLARYNGOLOGY DEPT. [place], [place] [address] (Wo rk) Social History Tobacco [...] 1 tablet by 0 Tablet mouth daily. vitamin E 100 unit Capsule Take 100 Units by 0 01/02/2019 mouth daily. acetaminophen (TYLENOL) Take 650 mg by 0 04/29/2019 325 mg Tablet mouth every 4 hours as needed for Pain. ubidecarenone (COENZYME Take by mouth 0 03/31/2021 Q10) 100 mg Tablet daily. ibuprofen (ADVIL;MOTRIN) 0 02/06/2006 09/26/2019 600 mg tablet documented as of this encounter Plan of Treatment Upcoming Encounters Date Type Specialty Care Team Description 10/04/2021 Office Visit Dermatology Tg Velasco MD [facility] ER DR [address] [place], [place] [address] (Wo rk) documented as of this encounter Procedures Procedure Name Priority Date/Time Associated Diagnosis Comme nts MRI CERVICAL SPINE Routine 12/27/2018 7:34 AM Tonsil cancer Re sults for this WITH/WO CONTRAST EDT procedure a re in the results section. documented in this encounter Results MRI Cervical Spine wwo [...] e number below. ? Electronically signed by: Katie Ferraro [facility] ([phone]), at 12/27/2018 9:29 AM Narrative 12/27/2018 9:29 AM EDT EXAMINATION: MRI [...] contact e number below. Electronically signed by: Katie Ferraro [facility] ([phone]), at 12/27/2018 9:29 AM Timothy David MD IMG MRI ORDERABLES documented in this encounter Visit Diagnoses Diagnosis Tonsil cancer Malignant neoplasm of tonsil documented in this encounter Administered Medications Inactive Administered Medications - up to 3 most recent administrations Medication Order MAR Action Action Date Dose Rate Site gadoterate meglumine (DOTAREM) Given 12/27/2018 7:19 AM EDT 19.3 mLs 0.5 mmol/mL (376.9 mg/mL) injection 19.3 mL 19.3 mL (0.2 mL/kg/dose ? 96.5 kg), Intravenous, ONCE PRN, 1 dose, Starting on Lee Ann 12/27/18 at 0619, Until Lee Ann 12/27/18 at 0719, Per Protocol, Routine documented in this encounter Care Teams Fuel Agent Relationship Specialty Start Date End Date Gregg Garcia MD PCP - General General Internal Medicine 09/24/18 [address] [place] [address] documented as of this encounter
--- OUTSIDE RECORDS SUMMARY | 2021-09-13 18:00 | XMS_ITS | Encounter Summary ---
:1975 Author Organization [facility] [place] [address] Care Team Providers Name Role Phone Gregg Garcia MD Primary Care Provider Reason for Referral Diagnostic Test (Routine) - Closed Specialty Diagnoses / Procedures Referred By Contact Refer red To Contact Radiology Diagnoses Neck mass Timothy David MD [facility] Interventionl Rad Procedures IR Biopsy Lymph Node (Head/Neck) IR US Guided Biopsy Thyroid FNA [facility] [place] [address] [place] [address] Referral ID Status Reason Start Date Expiration Date Visits V isits Requested Authorized [id number] Closed Specialty 10/11/2018 10/11/2019 1 1 Service Requested Reason for Visit Reason Comments Neck Mass Imaging done, US and CT. Chuck etimes painful, when turning head. Trouble swallowing if he doesn't hav e water with food. Consultation (Urgent) - Closed Specialty Diagnoses / Procedures Referred By Contact Refer red To Contact Otolaryngology Diagnoses Mass of neck Gregg Garcia MD Gosselin, Benoit J, MD [address] [place] [address] [address] [facility] [address] [place] OTOLARYNGOLOGY DEPT. [place], [place] [address] [place] [address] Fax: Referral ID Status Reason Start Date Expiration Date Visits V isits Requested Authorized [id number] Closed Consult, Test 09/24/2018 09/24/2019 1 1 & Treat PCP Updated and/or Approved Encounter Details Date Type Department Care Team Description 10/11/2018 Office Visit Otolaryngology at [facility] Timothy David Neck mass ([facility] Latia Weinstein MD Dx) [place] [address] [facility] [phone] [facility] OTOLARYNGOLOGY DEPT. [place], [place] [address] Social History Tobacco Use Types Packs/Day Years Used Date Former Smoker Cigarettes 0.5 3 Quit: 1999 Smokeless Tobacco: Never Used Alcohol Habits Answer Date Recorded How often do you have a drink containing alcohol? 2-4 times a month 12/27/2018 How many drinks containing alcohol do you have on a 1 or 2 12/27/2018 typical day when you are drinking? How often do you have six or more drinks on one Not asked occasion? Comment: Not asked Sex Assigned at Date Recorded Not on file documented as of this encounter Last Filed Vital Signs Vital Sign Reading Time Taken Comments Blood Pressure 129/69 10/11/2018 2:50 PM EDT Pulse 73 10/11/2018 2:50 PM EDT Temperature 37 ??C (98.6 ??F) 10/11/2018 2:50 PM EDT Respiratory Rate 18 10/11/2018 2:50 PM EDT Oxygen Saturation 97% 10/11/2018 2:50 PM EDT Inhaled Oxygen Concentration - - Weight 97.6 kg (215 lb 1.6 oz) 10/11/2018 2:50 PM EDT Height 188 cm (6' 2) 10/11/2018 2:50 PM EDT Body Mass Index 27.62 10/11/2018 2:50 PM EDT documented in this encounter Progress Notes Timothy David MD - 10/11/2018 3:00 PM EDT Subjective: Patient ID: Delvin Rosario is a 43 y.o. male. HPI Delvin Jeffery Abraham is seen in consultation from Gregg Garcia and Gregg Garcia MD in regards to E&M of left upper neck mass The following records were reviewed: office records, CT scan neck The history is obtained through patient interview, review of relevant records, and/or discussion with referring provider. Reasonably healthy M who became aware of a left upper neck mass about 1 year ago when feeling neck, no other associated symptoms and no particular context. No hx of insect bite or foreign travel, no infectious contact, no cat scratch. Was evaluated by PCP and placed on antibiotic but no improvement and on a second courseof antibiotics for suspected sinus infection although patient had minimal nasal symptoms. Mass has not been related to dysphagia or odynophagia, no referred otalgia, denies fevers/chills/sweats. Had initial u/s of neck for evaluation and then a more recent CT neck (reviewed below). Denies any throat discomfort. No oral bleeding, no voice change. No mass on other side of the neck and denies adenopathy in axilla or groin. Minimal smoking hx for 3 years 20 years ago, no ETOhism No past medical history on file.hypercholesterolemia No past surgical history on file. Current Outpatient Medications: ??? atorvastatin (LIPITOR) 40 mg Tablet, , Disp: , Rfl: 0 ??? multivitamin (THERAGRAN) Tablet, Take 1 tablet by mouth daily., Disp: , Rfl: ??? ubidecarenone (COENZYME Q10) 100 mg Tablet, Take by mouth daily., Disp: , Rfl: ??? ibuprofen (ADVIL;MOTRIN) 600 mg tablet, , Disp: , Rfl: Allergies Allergen Reactions ??? Magnesium Salicylate Rash There is no problem list on file for this patient. No family history on file. There is no pertinent family history of otolaryngologic problems Review of Systems: A complete review of constitutional, eyes, cardiovascular, respiratory, GI, , musculo-skeletal, skin, endocrine, psychiatric, hematologic, lymphatic and immunologic systems is completed and is as noted in the HPI. All other systems are otherwise negative. Social History Socioeconomic History ??? Marital status: [...] Last attempt to quit: 2000 Years since quittin.6 ??? Smokeless tobacco: Never Used Substance and Sexual Activity ??? Alcohol use: Not on file ??? Drug use: Not on file ??? Sexual activity: Not on file Lifestyle ??? Physical activity: Days per week: Not on file Minutes per session: Not on file ??? Stress: Not on file Relationships ??? Social connections: Talks on phone: Not on file Gets together: Not on file Attends holiness service: Not on file Active member of [...] Social History Narrative ??? Not on file Works in [employer] Objective: Physical Exam Constitutional: He is oriented to person, place, and time. He appears well- developed and well-nourished. No distress. HENT: Head: Normocephalic. Right Ear: Tympanic membrane, external ear and ear canal normal. No tenderness. No middle ear effusion. Left Ear: Tympanic membrane, external ear and ear canal normal. No tenderness. No middle ear effusion. Nose: Septal deviation present. No mucosal edema, sinus tenderness or nasal deformity. Mouth/Throat: Uvula is midline, oropharynx is clear and moist and mucous membranes are normal. No oral lesions (no lesion or asymmetry). No trismus in the jaw. No oropharyngeal exudate. Eyes: Pupils are equal, round, and reactive to light. Conjunctivae and EOM are normal. No scleral icterus. Neck: Normal range of motion. Neck supple. Carotid bruit is not present. No tracheal deviation present. No thyroid mass and no thyromegaly present. Pulmonary/Chest: Effort normal. No stridor. No respiratory distress. Lymphadenopathy: He has cervical adenopathy (complex firm rubbery mass of the left upper neck about 4 cm x 3 cm. smaller 1 cm mass in the left submandibular gland region. non tender). Neurological: He is alert and oriented to person, place, and time. He has normal reflexes. No cranial nerve deficit. Skin: Skin is warm. He is not diaphoretic. No erythema. Psychiatric: He has a normal mood and affect. His behavior is normal. Judgment and thought content normal. Nursing note and vitals reviewed. CT scan neck: multilobulated mass of left neck zone 2, inferior to the parotid tail with adjacent smaller nodes in zones 1 and 3, next to the carotid vessels. Adjacent to the SCM. No enlarged right neck nodes. Assessment and Plan: In view of the patient's symptoms and for complete evaluation, a flexible laryngoscopy is indicated. +++++++++++++++++++++++++++++++++++++++++++++++++++++++++++++++++++ Procedure: Flexible Laryngoscopy Indications: Evaluation for mucosal lesion of the upper airway Procedure and findings: The nasal mucosae are topicalized with pontacaine/afrin anesthesia. The flexible endoscope is passed through the nasal cavities and evaluation of the nasopharynx, oropharynx andlarynx is performed. All of the visualized mucosae are normal except for the following: Normal anatomy and no mass noted. Base of tongue Vocal cord mobility normal ASSESSMENT/PLAN: Based on today's findings not clear what this jose eduardo mass represents, certainly not glomus tumor or paraganglioma. Possible may represent lymphoma. No other anomaly in the pharynx. Discussed planning u/s guided FNAB with f/u 10 days later. Patient in agreement. May need additionalopen bx documented in this encounter Plan of Treatment Upcoming Encounters Date Type Specialty Care Team Description 10/04/2021 Office Visit Dermatology Tg Velasco MD [facility] ER [address]HE [address] [place], [place] [address] (Wo rk) documented as of this encounter Results IR Biopsy Lymph Node (Head/Neck) (10/30/2018 8:37 AM EDT) Anatomical Region Laterality Modality X-Ray Angiography Specimen (Source) Anatomical Location Collection Method / Collectio n Time Received Time / Laterality Volume Impressions 10/30/2018 11:33 AM EDT 1. ??Technically successful ultrasound-guided core needle biopsy of a left neck level IIb lymph node deep to the sternoc leidomastoid muscle. 2. ??Additional hypoechoic rounded lymph nodes are present in the left submandibular and posterior level IIb st ations. Operators: Fellow: Bryan Strauss M.D. Attending: William Solomon M.D. Procedure/Teaching Attestation: I, Alexis Solomon MD, was present for critical portions of the procedure including site selection, needle placement, and was immediately available throughout. Preliminary report signed by: Bryan Strauss at 10/30/2018 10:43 AM I have personally reviewed the image(s) and the residents interpretation and agree with the findings, William cox at 10/30/2018 11:33 AM Thank you for letting us participate in the care of this patient. For questions regarding this report, please contact [facility] number below. ? Narrative 10/30/2018 11:33 AM EDT NEURORADIOLOGY PROCEDURE NOTE Procedure: US-guided core biopsy of a le ft level IIb neck lymph node deep to the sternocleidomastoid muscle Indication for Procedure: nearly 1 year hx of left upper neck mass. Comparison: CT of the neck and soft tissues 9 Consent: After discussing the risks (inc luding infection, hemorrhage, damage to surrounding structures, nondiagnostic bi opsy) and benefits, the patient consented to the procedure. Technique: Prior to beginning the proced ure, a standard Time Out was performed. The patient was in the supine position. ??Initial grayscale and color Doppler images of the left neck were used to loc michael the target and surrounding structures. The skin was prepped and katrina ped in the usual sterile fashion. Local anesthesia provided with less than 5 mL of 1% lidocaine. Under ultrasound guidance, core needle biopsies were perf ormed utilizing 1 cm 19/20 gauge-biopsy system. The samples were evaluated by me carter of the cytopathology department for diagnostic quality prior to ending t he procedure. Once sufficient samples were collected, the procedure was ended. The patient tolerated the procedure well. Medications: Lidocaine 1% <5 mL SQ EBL: 0 cc Complications: No immediate Specimens: 7 core needle biopsies of the morphologically abnormal left neck level IIb lymph node Findings: Preprocedure ultrasound images demonstra chelsy a morphologically abnormal enlarged left neck level IIb lymph node measuring approximately 2.4 x 1.5 cm. Position of the needle tip was confirmed in the targ et lesion by ultrasound. Procedure Note William Solomon MD - 10/30/2018Format ting of this note might be different from the original. NEURORADIOLOGY PROCEDURE NOTE Procedure: US-guided core biopsy of a le ft level IIb neck lymph node deep to the sternocleidomastoid muscle Indication for Procedure: nearly 1 year hx of left upper neck mass. Comparison: CT of the neck and soft tissues 9 Consent: After discussing the risks (inc luding infection, hemorrhage, damage to surrounding structures, nondiagnostic bi opsy) and benefits, the patient consented to the procedure. Technique: Prior to beginning the proced ure, a standard Time Out was performed. The patient was in the supine position. Initial grayscale and color Doppler images of the left neck were used to loc michael the target and surrounding structures. The skin was prepped and katrina ped in the usual sterile fashion. Local anesthesia provided with less than 5 mL of 1% lidocaine. Under ultrasound guidance, core needle biopsies were perf ormed utilizing 1 cm 19/20 gauge-biopsy system. The samples were evaluated by me carter of the cytopathology department for diagnostic quality prior to ending t he procedure. Once sufficient samples were collected, the procedure was ended. The patient tolerated the procedure well. Medications: Lidocaine 1% <5 mL SQ EBL: 0 cc Complications: No immediate Specimens: 7 core needle biopsies of the morphologically abnormal left neck level IIb lymph node Findings: Preprocedure ultrasound images demonstra chelsy a morphologically abnormal enlarged left neck level IIb lymph node measuring approximately 2.4 x 1.5 cm. Position of the needle tip was confirmed in the targ et lesion by ultrasound. IMPRESSION 1. Technically successful ultrasound-maris ded core needle biopsy of a left neck level IIb lymph node deep to the sternoc leidomastoid muscle. 2. Additional hypoechoic rounded lymph n odes are present in the left submandibular and posterior level IIb st ations. Operators: Fellow: Bryan Strauss M.D. Attending: William Solomon M.D. Procedure/Teaching Attestation: I, Alexis Solomon MD, was present for critical portions of the procedure including site selection, needle placement, and was immediately available throughout. Preliminary report signed by: Bryan Strauss at 10/30/2018 10:43 AM I have personally reviewed the image(s) and the residents interpretation and agree with the findings, William cox at 10/30/2018 11:33 AM Thank you for letting us participate in the care of this patient. For questions regarding this report, please contact e number below. 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
--- OUTSIDE RECORDS SUMMARY | 2021-09-13 18:00 | XMS_ITS | Encounter Summary ---
:1975 Author Organization [facility] [place] [address] Care Team Providers Name Role Phone Augie REDDY MD, Christ Montoya Primary Care Provider [phone] Encounter Details Date Type Department Care Team Description 08/27/2018 Ancillary Procedure Radiology Library at Gregg Garcia MD [facility] [place] [address] [phone] (Wo rk) [phone] Social History Tobacco Use Types Packs/Day Years Used Date Never Assessed Alcohol Habits Answer Date Recorded How often [...] 10/04/2021 Office Visit Dermatology Tg Velasco MD [facility] [address] [place], [place] [address] (Wo rk) documented as of this encounter Procedures Procedure Name Priority Date/Time Associated Comments Diagnosis FILM LIBRARY STORAGE Routine 08/27/2018 12:00 AM Results for this ONLY ULTRASOUND EDT procedure ar nevaeh in STUDY the results section. documented in this encounter Results Film Library- Storage Only Ultrasound Study (08/27/2018 12:00 AM EDT) Specimen (Source) Anatomical Location Collection Method / Collectio n Time Received Time / Laterality Volume Narrative [facility] - 09/24/2018 6:02 PM EDT This exam is auto-finalizing. It's purpo se is for storage only. 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
--- OUTSIDE RECORDS SUMMARY | 2021-09-13 18:00 | XMS_ITS | Encounter Summary ---
:1975 Author Organization [facility] [place] [address] Care Team Providers Name Role Phone Gregg Garcia MD Primary Care Provider Encounter Details Date Type Department Care Team Description 11/16/2018 Telephone Otolaryngology at [facility] [place] [address] Social History Tobacco Use Types Packs/Day [...] Notes Telephone Encounter - Lani Ruano - 11/16/2018 4:05 PM EDT Patient called in to schedule an MORENITA PET scan w/ f/u with Dr. David. Offered patient 11/22 6:30am arrival. Patient accepted. He is away plain water only after midnight, no gum, mints, or cough drops. 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
--- OUTSIDE RECORDS SUMMARY | 2021-09-13 18:00 | XMS_ITS | Encounter Summary ---
:1975 Author Organization [facility] [place] [address] Care Team Providers Name Role Phone Augie REDDY MD, Christ Montoya Primary Care Provider [phone] Encounter Details Date Type Department Care Team Description 06/05/2017 Ancillary Procedure Radiology Library at Gregg Garcia MD [facility] [place] [address] [phone] (Wo rk) [phone] Social History Tobacco Use Types Packs/Day Years [...] [facility] [address]HE [address] [place], [place] [address] (Wo rk) documented as of this encounter Procedures Procedure Name Priority Date/Time Associated Diagnosis Comme nts FILM LIBRARY Routine 06/05/2017 12:00 AM Results for this STORAGE ONLY CT EDT procedure ar e in SPINE the results section. documented in this encounter Results Film Library- Storage Only CT Spine (06/05/2017 12:00 AM EDT) Specimen (Source) Anatomical Location Collection Method / Collectio n Time Received Time / Laterality Volume Narrative [facility] - 09/24/2018 6:23 PM EDT This exam is auto-finalizing. It's purpo se is for storage only. 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
--- OUTSIDE RECORDS SUMMARY | 2021-09-13 18:00 | XMS_ITS | Encounter Summary ---
:1975 Author Organization [facility] [place] [address] Care Team Providers Name Role Phone Gregg Garcia MD Primary Care Provider Reason for Referral Diagnostic Test (Routine) - Closed Specialty Diagnoses / Procedures Referred By Contact Refer red To Contact Radiology Diagnoses Oropharynx cancer Timothy David MD [facility] Rad Nuclear Med Procedures NM PET CT Standard Plus Head and Neck [facility] [place] [address] [place] [address] Referral ID Status Reason Start Date Expiration Date Visits V isits Requested Authorized [id number] Closed Specialty 11/16/2018 02/14/2019 1 1 Service Requested Reason for Visit Reason Comments Follow-up FNA biopsy results Encounter Details Date Type Department Care Team Description 11/13/2018 Office Visit Otolaryngology at [facility] Timothy David Oropharynx cancer [facility] Latia Weinstein MD (Primary Dx) [place] [address] [facility] [phone] [facility] OTOLARYNGOLOGY DEPT. [place], [place] [address] Social History Tobacco Use Types [...] - Inhaled Oxygen Concentration - - Weight 97.5 kg (215 lb) 11/13/2018 3:37 PM EDT Height 188 cm (6' 2) 11/13/2018 3:37 PM EDT Body Mass Index 27.6 11/13/2018 3:37 PM EDT documented in this encounter Progress Notes Timothy David MD - 11/13/2018 3:40 PM EDT Subjective: Patient ID: Delvin Rosario is a 43 y.o. male. HPI Delvin Rosario is seen in follow up of a left upper neck mass that he has had over 1 year The following records were reviewed: office records, [...] Allergies Allergen Reactions ??? Magnesium Salicylate Rash Patient Active Problem List Diagnosis Code ??? Neck mass R22.1 No family history on file. There is [...] quittin.7 ??? Smokeless tobacco: Never Used Substance and [...] Narrative ??? Not on file Works in [employer] Review of Systems Objective: Physical Exam Constitutional: He is oriented [...] the SCM. No enlarged right neck nodes. CT scan June 2017 also reviewed: 15 mm left level 2 node, FNAB: DIAGNOSIS Positive for Malignancy Electronically signed by: ??Saran SARMIENTO, John Weinstein Verified: ??11/03/2018 ?Cytopathologist Performed at: ??-[facility] Dept. of Pathology, [place], [place] DISCUSSION Lymph node: left neck (US-guided FNA) - Squamous cell carcinoma, non-keratinizing, P16 positive. HPV genotyping has been ordered; results will be reported separately when available. Dr. Carver has reviewed this case and concurs with the diagnosis. Assessment and Plan: In view of the patient's symptoms and for complete evaluation, a flexible laryngoscopy is indicated.Especially since no lesion was noted at previous FNL 1 month ago +++++++++++++++++++++++++++++++++++++++++++++++++++++++++++++++++++ Procedure: Flexible Laryngoscopy Indications: Evaluation for mucosal lesion of the upper airway Procedure and findings: The nasal mucosae are topicalized with pontacaine/afrin anesthesia. The flexible endoscope is passed through the nasal cavities and evaluation of the nasopharynx, oropharynx andlarynx is performed. All of the visualized mucosae are normal except for the following: Normal anatomy and no mass noted. Base of tongue, no asymmetry of the tonsil regions, valleculae patent and piriforms clear, normal larynx. Vocal cord mobility normal ASSESSMENT/PLAN: Long discussion with patient and regarding diagnosis. Based on FNL, no visiblelesion noted, I also compared today's FNL to the one done 1 mo ago and there is no appreciable change noted. Next step is for a PET-CT and discussed with patient and rationale for this. Discussed that theoriginating cells from his P16 + cancer are somewhere in oropharynx. Discussed need for mapping biopsies. Will see after PET CT documented in this encounter Plan of Treatment Upcoming Encounters Date Type Specialty Care Team Description 10/04/2021 Office Visit Dermatology Tg Velasco MD [facility] [address] DAL[address]MAT [place], [place] [address] (Wo rk) documented as of this encounter Results NM PET CT Standard Plus Head and Neck (11/22/2018 8:07 AM EDT) Anatomical Region Laterality Modality Positron Emission To mography (PET) Specimen (Source) Anatomical Location Collection Method / Collectio n Time Received Time / Laterality Volume Impressions 11/22/2018 9:54 AM EDT Hypermetabolic metastatic lymphadenopathy in the neck bilaterally. No definite primary lesion is identified . No distant metastases. Thank you for letting us participate in the care of this patient. For questions regarding this report, please contact e number below. ? Electronically signed by: Latia Hawthorne [facility] ([phone]), at 11/22/2018 9:54 AM Narrative 11/22/2018 9:54 AM EDT EXAMINATION: NM PET CT STANDARD PLUS HEAD AND NECK CLINICAL HISTORY: newly diagnosed p16+ S CCa to the left neck. No visible primary noted. Please image for staging TECHNIQUE: Following IV injection of 18- ncwoeo-0-myeiysdglgac (FDG) a standard uptake of approximately 60 minutes, a no ncontrast CT scan followed by a PET scan were acquired from the top of head to mi d thighs. The noncontrast CT was used for anatomic localization and photon att enuation correction of the PET scan. Blood glucose level: 110 (mg/dL) FDG dose: 14.2 mCi COMPARISON: CT scan neck September 21, 2018 FINDINGS: HEAD/NECK: Hypermetabolic lymphadenopathy is presen t in the left neck at levels 2A, 2B, 1B, and 3. Hypermetabolic lymph nodes are p resent in the right neck at levels 2A and 3. Diffuse, uniform and symmetric activity is present in the palate and tonsils bilaterally are all likely normal physio logic activity. CHEST: No abnormal activity is present. Calcified granulomas are present in the left upper and lower lobes. ABDOMEN/PELVIS: No abnormal activity is present. SKELETON/EXTREMITIES: No abnormal activity is present. Procedure Note Perfecto Shelley MD - 11/22/2018 EXAMINATION: NM PET CT STANDARD PLUS HEA D AND NECK CLINICAL HISTORY: newly diagnosed p16+ S CCa to the left neck. No visible primary noted. Please image for staging TECHNIQUE: Following IV injection of 18- vjexso-0-pdjzqbqvfegp (FDG) a standard uptake of approximately 60 minutes, a no ncontrast CT scan followed by a PET scan were acquired from the top of head to mi d thighs. The noncontrast CT was used for anatomic localization and photon att enuation correction of the PET scan. Blood glucose level: 110 (mg/dL) FDG dose: 14.2 mCi COMPARISON: CT scan neck September 21, 2018 FINDINGS: HEAD/NECK: Hypermetabolic lymphadenopathy is presen t in the left neck at levels 2A, 2B, 1B, and 3. Hypermetabolic lymph nodes are p resent in the right neck at levels 2A and 3. Diffuse, uniform and symmetric activity is present in the palate and tonsils bilaterally are all likely normal physio logic activity. CHEST: No abnormal activity is present. Calcified granulomas are present in the left upper and lower lobes. ABDOMEN/PELVIS: No abnormal activity is present. SKELETON/EXTREMITIES: No abnormal activity is present. IMPRESSION Hypermetabolic metastatic lymphadenopath y in the neck bilaterally. No definite primary lesion is identified . No distant metastases. Thank you for letting us participate in the care of this patient. For questions regarding this report, please contact e number below. Electronically signed by: Latia Hawthorne [facility] ([phone]), at 11/22/2018 9:54 AM Timothy David MD IMG PET ORDERABLES documented in this encounter Visit Diagnoses Diagnosis Oropharynx cancer - Primary Malignant neoplasm of oropharynx, unspec ified site Oropharynx cancer Malignant neoplasm of oropharynx, unspec ified site documented in this encounter Care Teams Cutlery Grinder Relationship Specialty Start Date End Date Gregg Garcia MD PCP - General General Internal Medicine 09/24/18 1 [address] [place] [address] documented as of this encounter
--- OUTSIDE RECORDS SUMMARY | 2021-09-13 18:00 | XMS_ITS | Encounter Summary ---
:1975 Author Organization [facility] [place] [address] Care Team Providers Name Role Phone Augie REDDY MD, Christ Montoya Primary Care Provider [phone] Encounter Details Date Type Department Care Team Description 09/21/2018 Ancillary Procedure Radiology Library at Gregg Garcia MD [facility] [address] [phone] (Wo rk) [phone] Social History Tobacco Use Types Packs/Day Years [...] 10/04/2021 Office Visit Dermatology Tg Velasco MD [facility] [address] BL[address], [place] [address] (Wo rk) documented as of this encounter Procedures Procedure Name Priority Date/Time Associated Diagnosis Comme nts FILM LIBRARY Routine 09/21/2018 12:00 AM Results for this STORAGE ONLY CT EDT procedure ar e in SPINE the results section. documented in this encounter Results Film Library- Storage Only CT Spine (09/21/2018 12:00 AM EDT) Specimen (Source) Anatomical Location Collection Method / Collectio n Time Received Time / Laterality Volume Narrative [facility] - 09/24/2018 6:05 PM EDT This exam is auto-finalizing. It's purpo se is for storage only. Gregg Garcia MD IMG FILM LIBRARY ORDERABLES Performing Organization Address City/State/ZIP Code Phon e Number [place], [place] documented in this encounter Visit Diagnoses Not on filedocumented in this encounter Care Teams Mc Kay Stitcher Relationship Specialty Start Date End Date Christ Ghosh III, MD PCP - General 01/26/10 09/23/18 [address] [place] [address] documented as of this encounter
--- OUTSIDE RECORDS SUMMARY | 2021-09-13 18:00 | XMS_ITS | Encounter Summary ---
:1975 Author Organization [facility] [place] [address] Care Team Providers Name Role Phone Gregg Garcia MD Primary Care Provider Encounter Details Date Type Department Care Team Description 11/29/2018 Telephone Otolaryngology at [facility] [place] [address] Social History Tobacco Use Types Packs/Day [...] Notes Telephone Encounter - Juli Triana - 11/29/2018 10:36 AM EDT Wants to get his biopsy scheduled, sent message to surgical rn documented in this encounter Plan of Treatment Upcoming Encounters Date Type Specialty Care Team Description 10/04/2021 Office Visit Dermatology Tg Velasco MD [facility] [address] BLANCHE DALAL[address]DERMAT [place], [place] [address] (Wo rk) documented as of this encounter Visit Diagnoses Not on filedocumented in this encounter Care Teams Broker Assistant Relationship Specialty Start Date End Date Gregg Garcia MD PCP - General General Internal Medicine 09/24/18 [address] [facility] [address] [place] [address] documented as of this encounter
--- OUTSIDE RECORDS SUMMARY | 2021-09-13 18:00 | XMS_ITS | Encounter Summary ---
:1975 Author Organization [facility] [place] [address] Care Team Providers Name Role Phone Gregg Garcia MD Primary Care Provider Encounter Details Date Type Department Care Team Description 10/30/2018 Laboratory Appointment Lab at [facility] Pre-op testing; [facility] [place] [address] Social History Tobacco Use Types Packs/Day [...] 10/04/2021 Office Visit Dermatology Tg Velasco MD [facility] ER [address] BLANCHE DALAL-DERMAT [employer], [place] [address] (Wo rk) documented as of this encounter Procedures Procedure Name Priority Date/Time Associated Comments Diagnosis HC PARTIAL STAT 10/30/2018 6:30 AM Pre-op testin g Results for this THROMBOPLASTIN TIME EDT Neck mass procedur e are in the results section. HC PROTHROMBIN TIME STAT 10/30/2018 6:30 AM Pre-op te sting Results for this EDT Neck mass procedure are i n the results section. HC PLATELET COUNT STAT 10/30/2018 6:30 AM Pre-op test ing Results for this EDT Neck mass procedure are i n the results section. documented in this encounter Results Platelet count (10/30/2018 6:30 AM EDT) P athologist Signature Platelets 222 145 - 357 [facility] x10(3)/[facility] LABORATORY Plat Immature 2.1 0.0 - 7.4 [facility] % % [facility] LABORATORY Comment: Limitation of the Immature Platelet Frac tion (IPF)-May be less reliable when the platelet count is less than 95k279/u L due to statistical imprecision. The IPF value provides an assessment of the Bone Marrow production status. ??It is useful in differentiating Thrombocyto penia caused by platelet destruction/consumption versus decreased production. It also helps to determine the imminent release of platelets and ca n be therefore a helpful parameter in Chemotherapy and Bone marrow transplant patients. ELEVATED IPF value: ?? When the bone marrow is in a state of over production such as when increased destruction and consumption are the unde rlying issue. ?? When the marrow is recovering post ch emotherapy or bone marrow transplant. LOW to NORMAL IPF value: ?? When the bone marrow in not respondin g and is in a decreased state of production. References: [employer] The Clinical Value of the Immature Platelet Fraction (IPF) in Cell Recovery Document Number [id number] 08/2010 [employer] The Role of the Imm ature Platelet Fraction (IPF) in the Differential Diagnosis of Thrombocytopen ia, Document [id number] V05/02/16 P05/14 Specimen Anatomical Collection Method Collection Time Receive d Time (Source) Location / / Volume Laterality Blood specimen 10/30/2018 6:30 AM 019 6:36 (specimen) EDT AM EDT Resulting Agency Comment Spec In Lab Timothy David MD HEMATOLOGY ORDERABLES Performing Organization Address City/State/[place] [address] Prothrombin Time (10/30/2018 6:30 AM EDT) P athologist Signature PT 11.2 9.4 - 12.5 [facility] LABORATORY INR 1.0 [facility] LABORATORY Comment: An INR <2.0 indicates [...] Location / / Volume Laterality Blood specimen 10/30/2018 6:30 AM 019 6:36 (specimen) EDT AM EDT Resulting Agency Comment Spec In Lab Timothy David MD HEMATOLOGY ORDERABLES Performing Organization Address City/[facility]/ZIP Code Phon e Number [address] APTT (10/30/2018 6:30 AM EDT) P athologist Signature PTT 30 25 - 37 sec [facility] LABORATORY Comment: The PTT is NOT appropriate for heparin m onitoring. Use the Anti-Xa level for heparin monitoring (HEP UFH) or LMWH mon itoring (HEP LMW). A PTT less than 37 seconds generally indicates adequate hem ostasis. Specimen Anatomical Collection Method Collection Time Receive d Time (Source) Location / / Volume Laterality Blood specimen 10/30/2018 6:30 AM 019 6:36 (specimen) EDT AM EDT Resulting Agency Comment Spec In Lab Timothy David MD HEMATOLOGY ORDERABLES Performing Organization Address City/State/ZIP Code Phon e Number [address] documented in this encounter Visit Diagnoses Diagnosis Pre-op testing Preoperative examination, unspecified Neck mass Swelling, mass, or lump in head and neck documented in this encounter Care Teams Salon Sales Consultant Relationship Specialty Start Date End Date Gregg Garcia MD PCP - General General Internal Medicine 09/24/18 [address] [place] [address] documented as of this encounter
--- OUTSIDE RECORDS SUMMARY | 2021-09-13 18:00 | XMS_ITS | Encounter Summary ---
:1975 Author Organization [facility] [place] [address] Care Team Providers Name Role Phone Gregg Garcia MD Primary Care Provider Encounter Details Date Type Department Care Team Description 11/30/2018 Telephone Otolaryngology at [facility] [place] [address] Social History Tobacco Use Types Packs/Day [...] this encounter Miscellaneous Notes Telephone Encounter - Brian Del Toro - 11/30/2018 3:27 PM EDT CONFIRMED SURGICAL DATE OF 12/[address] HANSON. PATIENT TO CALL HIS PCP TO SCHEDULE H&P Obtain prior to case: Pre-op physical Follow-up visit: 1 week BG documented in this encounter Plan of Treatment Upcoming Encounters Date Type Specialty Care Team Description 10/04/2021 Office Visit Dermatology Tg Velasco MD [facility] ER [address] BLANCHE DALAL[address] [place], [place] [address] (Wo rk) documented as of this encounter Visit Diagnoses Not on filedocumented in this encounter Care Teams Equipment Sales Specialist Relationship Specialty Start Date End Date Gregg Garcia MD PCP - General General Internal Medicine 09/24/18 [address] [place] [address] documented as of this encounter
--- OUTSIDE RECORDS SUMMARY | 2021-09-13 18:00 | XMS_ITS | Encounter Summary ---
:1975 Author Organization [facility] [place] [address] Care Team Providers Name Role Phone Gregg Garcia MD Primary Care Provider Reason for Visit Reason Comments Follow-up PET SCAN DONE TODAY Encounter Details Date Type Department Care Team Description 11/22/2018 Office Visit Otolaryngology at [facility] Timothy David Oropharynx cancer [facility] [place] [address] [facility] [phone] OTOLARYNGOLOGY DEPT. [place], [place] [address] Social History Tobacco Use Types [...] - Oxygen Saturation - - Inhaled Oxygen - - Concentration Weight 95.6 kg (210 lb 12.8 11/22/2018 9:34 AM actual w eight oz) EDT obtained Height 188 cm (6' 2) 11/22/2018 9:34 AM EDT Body Mass Index 27.07 11/22/2018 9:34 AM EDT documented in this encounter Progress Notes Juan Arroyo, ENTRY LEVEL MACHINE OPERATOR - 11/22/2018 9:40 AM EDT [facility] OTOLARYNGOLOGY - HEAD AND NECK TUMOR CLINIC FOLLOW UP NOTE Delvin Rosario is a 43 y.o. male followed for: left upper neck mass that he has had over 1 year. He is accompanied by his . New issues since last visit: Having difficulty swallowing food for the last couple of months, no particular foods, has to use water to help swallow. Unchanged since last visit on 11/13/18. No referred otalgia. Has noticed that voice is more raspy, but not all the time. Does not seem to be related to overuse. No fevers, chills, night sweats. Has lost 20 pounds in the last 6 months. May be a little bit more active during the summer, not dieting at all. History of recurrent reflux 10 years ago. Doesn't remember taking medication, seemed to go away on its own. Did have some reflux this morning. PROBLEM LIST Patient Active Problem List Diagnosis [...] daily. ??? ibuprofen (ADVIL;MOTRIN) 600 mg tablet Current Facility-Administered Medications on File Prior to Visit Medication Dose Route Frequency Provider Last Rate Last Dose ??? [COMPLETED] fludeoxyglucose (F-18) FDG injection 14.2 mCi 14.2 mCi Intravenous Once PRN Perfecto Shelley MD 14.2 mCi at 11/22/18 0646 ALLERGIES Allergies Allergen Reactions ??? Magnesium Salicylate Rash ROS Pertinent positive findings discussed above. No other findings on review of constitutional visual, cardiovascular, respiratory, gastrointestinal, genitourinary, musculoskeletal, dermatologic, neurological, psychiatric, endocrine, hematologic or immunologic systems. PHYSICAL EXAMINATION Vitals: Height 188 cm (6' 2), weight 95.6 kg (210 lb 12.8 oz). General: Well developed, no [...] staging ? TECHNIQUE: Following IV injection of 43-gseixr-9-deoxyglucose (FDG) a standard uptake of approximately 60 [...] number below. Electronically signed by: Perfecto Shelley [facility] ([phone]), at 11/22/2018 9:54 AM ASSESSMENT/RECOMMENDATIONS Delvin Rosario is a 43 y.o. male who is here for follow-up for a left-sided neck mass. Complaining of dysphagia and intermittent raspy voice today. Physical exam significant for left-sided cervical adenopathy and mildly erythematous left tonsil. PET-CT shows significant FDG uptake in the neck nodes bilaterally. Some uptake in palatine tonsils, especially left. Some uptake in base of tongue. Recommendations: Direct laryngoscopy with mapping biopsies indicated. Procedure explained to patientand his , consent obtained. We will schedule at patient's convenience, with follow-up to go overresults in 1 week following. I appreciate the opportunity to be involved in Mr. Rosario's care. Juan Arroyo PA-C Pager: [phone]/22/2018 LT Timothy David MD - 11/22/2018 9:40 AM EDT ENT ATTENDING STAFF NOTE: I personally reviewed the above note including the documented history. I examined the patient, as well as reviewed personally all additional investigations. The patient has no new symptoms in his throat oropharynx to report. His voice has remained stable. He has not noticed any lateralized discomfort.Denies any changes in his weight. Physical findings are as reported. His PET CT scan done today shows diffuse uptake of the lymphoid tissue in the nasal and oropharynx. He has somewhat of more prominence on the left side on the CT portion of the study. We discussed taking him to the OR for mapping biopsies. Discussed that he may need additional procedures if the mapping biopsies are negative. Patient and his were appreciative ofthe information they received. I agree with the outlined plan. Timothy David MD documented in this encounter Plan of Treatment Upcoming Encounters Date Type Specialty Care Team Description 10/04/2021 Office Visit Dermatology Tg Velasco MD [facility] ER [address] BL[address]HE DAL[address] [place], [place] [address] (Wo rk) documented as of this encounter Procedures Procedure Name Priority Date/Time Associated Diagnosis Comme nts LARYNGOSCOPY, Routine 11/22/2018 6:53 PM EDT MICROSCOPE, WITH BIOPSY documented in this encounter Visit Diagnoses Diagnosis Oropharynx cancer Malignant neoplasm of oropharynx, unspec ified site documented in this encounter Care Teams Analytical Scientist Relationship Specialty Start Date End Date Gregg Garcia MD PCP - General General Internal Medicine 09/24/18 [address] [place] [address] documented as of this encounter
--- OUTSIDE RECORDS SUMMARY | 2021-09-13 18:00 | XMS_ITS | Encounter Summary ---
:1975 Author Organization [facility] [place] [address] Care Team Providers Name Role Phone Gregg Garcia MD Primary Care Provider Encounter Details Date Type Department Care Team Description 10/14/2018 Orders Only Radiology Bryan Strauss, [facility] [place] [address] [facility] [phone] RADIOLOGY DEPT [place], [place] [address] (Wo rk) Social History Tobacco [...] documented as of this encounter Progress Notes Bryan Strauss - 10/14/2018 9:39 PM EDT Images from the original note were not included. INTERVENTIONAL RADIOLOGY FOCUSED H&P and PRE-PROCEDURE NOTE: PCP: Gregg Garcia MD Referring Provider: Dr. David Planned Procedure: US guided biopsy of left neck node/mass Procedure Indication: Enlarging left neck mass, suspicious for malignancy. There are no answered order specific questions. Presenting Diagnosis/ Complaint: Delvin Rosario is a 43 y.o. Male, history of remote smoking, with a soft tissue attenuation neck mass/ enlarging lymph node lateral to the carotid bifurcation. No known history of malignancy. Neuroradiology is consulted for biopsy by Dr. David. Of note, there is an additional enlarged left submandibular lymph node that may also be amenable for biopsy. Dr. David's note mentions both of these sites on physical exam. No mass noted with flexible laryngoscopy. Past Medical/Surgical History: Patient Active Problem List Diagnosis Code ??? Neck mass R22.1 No past medical history on file. No past surgical history on file. Medications: Current Outpatient Medications on File Prior [...] file Gets together: Not on file Attends christian service: Not on file Active member of [...] Social History Narrative ??? Not on file Significant Family History: No family history on file. Pertinent ROS: as per HPI Labs: Imaging: Reviewed most recent neck CT. Soft tissue attenuation mass lateral to the carotid bifurcation. Additional left submandibular lymph node Physical Exam: Pending (to be performed in angio the day of procedure) ASA: Pending (to be assessed in angio the day of procedure) Mallampati Class: Pending (to be assessed in angio the day of procedure) Assessment: Delvin Rosario is a 43 y.o. Male, history of remote smoking, with a soft tissue attenuation neck mass/ enlarging lymph node lateral to the carotid bifurcation. No known history of malignancy. Neuroradiology is consulted for biopsy by Dr. David. Of note, there is an additional enlarged left submandibular lymph node that may also be amenable for biopsy. Dr. David's note mentions both of these sites on physical exam. No mass noted with flexible laryngoscopy. Case dicussed with Dr. Juarez Plan: US guided biopsy of abnormal left neck lymph node. Choice of target based on accessibility andabnormal appearance on ultrasound. Position: Supine Sedation: None Medications to hold: None Labs to order: PLT and INR Medications for procedure: Lidocaine Pathology present: No Consent: To be obtained day of procedure Bryan Strauss MD Neuroradiology fellow 10/14/2018 documented in this encounter Plan of Treatment Upcoming Encounters Date Type Specialty Care Team Description 10/04/2021 Office Visit Dermatology Tg Velasco MD [facility] [address] [place], [place] [address] (Wo rk) documented as of this encounter Visit Diagnoses Not on filedocumented in this encounter Care Teams Paint Dipper Relationship Specialty Start Date End Date Gregg Garcia MD PCP - General General Internal Medicine 09/24/18 [address] [place] [address] documented as of this encounter
--- OUTSIDE RECORDS SUMMARY | 2021-09-13 18:00 | XMS_ITS | Encounter Summary ---
:1975 Author Organization [facility] [place] [address] Care Team Providers Name Role Phone Gregg Garcia MD Primary Care Provider Reason for Referral Diagnostic Test (Routine) - Closed Specialty Diagnoses / Procedures Referred By Contact Refer red To Contact Radiology Diagnoses Neck mass Timothy David MD [facility] Interventionl Rad Procedures IR Biopsy Lymph Node (Head/Neck) IR US Guided Biopsy Thyroid [facility] [place] [address] [place] [address] Referral ID Status Reason Start Date Expiration Date Visits V isits Requested Authorized [id number] Closed Specialty 10/11/2018 10/11/2019 1 1 Service Requested Reason for Visit Diagnostic Test (Routine) - Closed Specialty Diagnoses / Procedures Referred By Contact Refer red To Contact Radiology Diagnoses Neck mass Timothy David MD [facility] Interventionl Rad Procedures IR Biopsy Lymph Node (Head/Neck) IR US Guided Biopsy Thyroid FNA [facility] [place] [address] [place] [address] Referral ID Status Reason Start Date Expiration Date Visits V isits Requested Authorized [id number] Closed Specialty 10/11/2018 10/11/2019 1 1 Service Requested Encounter Details Date Type Department Care Team Description 10/30/2018 [place] [facility] [place] David Pre-op testing; [facility] Center MD [address] [place] [address] OTOLARYNGOLOGY [phone] [facility] [place] [address] Social History Tobacco Use Types [...] Sign Reading Time Taken Comments Blood Pressure 109/57 10/30/2018 9:15 AM EDT Pulse 58 10/30/2018 9:15 AM EDT Temperature 36.8 ??C (98.3 ??F) 10/30/2018 8:37 AM EDT Respiratory Rate 18 10/30/2018 9:15 AM EDT Oxygen Saturation 97% 10/30/2018 9:15 AM EDT Inhaled Oxygen Concentration - - Weight - - Height - - Body Mass Index - - documented in this encounter Discharge Instructions Discharge InstructionsAmanda Vasquez RN - 10/30/2018 8:43 AM EDT [facility] DEPARTMENT OF RADIOLOGY Biopsy Discharge Instructions Thyroid & lymph node: call your doctor immediately if you develop increased pain swelling or heavy bleeding at the biopsy site, or difficulty swallowing . Activity and Diet: Go home and rest quietly for the remainder of the day. You may resume your normalactivities tomorrow. Resume your usual diet after the procedure. When to call your healthcare provider: If you see any redness, swelling or drainage at the biopsy site. If you develop shaking chills. If you have a fever greater than or equal to101 degrees Fahrenheit. If you develop pain around the biopsy site. Bandage: Check the dressing/bandaid throughout the day for an increase in drainage. Keep the biopsy site dry for 24 hours. Replace the bandaid as needed. You may shower 24 hours after the biopsy. Medication: DO NOT take aspirin-containing products, ibuprofen, or blood- thinning medication for thenext 24 hours unless your doctor says you may do so. Generally you may use acetaminophen as needed for discomfort unless you have liver disease and are instructed not to take acetaminophen. Biopsy Results: The results of your biopsy should be available within 5 business days and will be reported to you by your primary skin care technician or the clinician who ordered the biopsy. Please do not call us for results as we will not have them. If you have not been contacted by your clinician within 5 business days you should call that office for further information. When to call the Radiology Department: Please call with any questions or concerns. If it is during regular office hours, please call [phone]. If it is after regular office hours, or on weekends or holidays, please call [phone] andask to speak to the Household Appliances Salesperson superintendent overhead distribution. Revised 03/20/15 documented in this encounter Medications at Time of Discharge Medication Sig Dispensed Refills Start Date End Date multivitamin (THERAGRAN) Take 1 tablet by 0 Tablet mouth daily. ubidecarenone (COENZYME Take by mouth 0 03/31/2021 Q10) 100 mg Tablet daily. ibuprofen (ADVIL;MOTRIN) 0 02/06/2006 09/26/2019 600 mg tablet documented as of this encounter Progress Notes Bryan Strauss - 10/30/2018 7:28 AM EDT INTERVENTIONAL RADIOLOGY FOCUSED H&P: Procedure: US guided left neck node biopsy The patient's history and physical exam have been reviewed and completed. There has been no intervalchange from that of the pre-operative history and physical exam done within the last 30 days. The planned procedure (and sedation plan if appropriate) , its benefits and risks, and alternatives were discussed with the patient. The patient consented to the procedure. PRE-SEDATION ASSESSMENT: Sedation Plan: no sedation Current medications reviewed: Yes Allergies reviewed: Yes Jordyn Olivares RN - 10/26/2018 2:56 PM EDT ANGIO NURSING DATABASE Name: JASON HILTON Date of : 1975 AGE: 43 y.o. Address: [address] [address] (home) Mobile: Telephone Information: Referring Provider: Timothy David REASON FOR VISIT: Lymph node biopsy Order Questions Answers Where will study be performed? [facility] Radiology [120] Reason for exam and clinical history: nearly 1 year hx of left upper neck mass. FNAB Exam/Procedure requested: FNAB Is the patient on anticoagulant / anitplatelet therapy ? No Plan: US guided biopsy of abnormal left neck lymph node. Choice of target based on accessibility andabnormal appearance on ultrasound. ?? Position: Supine Sedation: None Medications to hold: None Labs to order: PLT and INR Medications for procedure: Lidocaine Pathology present: No Consent: To be obtained day of procedure ?? Bryan Strauss MD Neuroradiology fellow Allergies Allergen Reactions ??? Magnesium Salicylate Rash Pertinent PMH: Patient Active Problem List Diagnosis Code ??? Neck mass R22.1 Pertinent PSH: No past surgical history on file. Date/Procedure Meds given/comments None prior Laboratory Results: Medications: Prior to Admission medications Medication Sig Start Date End Date Taking? Authorizing Provider atorvastatin (LIPITOR) 40 mg Tablet 09/18/18 PROVIDER, HISTORICAL multivitamin (THERAGRAN) Tablet Take 1 tablet by mouth daily. PROVIDER, HISTORICAL ubidecarenone (COENZYME Q10) 100 mg Tablet Take by mouth daily. PROVIDER, HISTORICAL ibuprofen (ADVIL;MOTRIN) 600 mg tablet 02/06/06 documented in this encounter Plan of Treatment Upcoming Encounters Date Type Specialty Care Team Description 10/04/2021 Office Visit Dermatology Tg Velasco MD [facility] ER DR [address] [facility] [place] [address] (Wo rk) documented as of this encounter Procedures Procedure Name Priority Date/Time Associated Comments Diagnosis NON-MANAGER ADVANCED FINAL REPORT Routine 10/30/2018 10:02 Res ults for this AM EDT procedure are i n the results section. IR BIOPSY LYMPH NODE Routine 10/30/2018 8:37 Neck mass Resu lts for this (HEAD/NECK) AM EDT procedure are i n the results section. IMMUNOPHENOTYPING FLOW Routine 10/30/2018 7:13 Re sults for this CYTOMETRY AM EDT procedure are i n the results section. CYTOPATHOLOGY Routine 10/30/2018 7:13 Results for this NON-GYNECOLOGICAL AM EDT procedure are in the results section. documented in this encounter Results Non-Rn Provider Relations Final Report (10/30/2018 10:02 AM EDT) Component Value Ref Test Analysis Performed At [facility] Range Method Time Signature Non-Rn Provider Relations [id number] ? Location: [address] [place] [address] Final Report VENANGO The signing pathologist has (i) examined the relevant preparation(s) for the [facility] specimen(s) and (ii) rendered or confirmed the diagnosis(es) . HOSPITAL LABORATORY . ?Molecu lar Genetics RESULTS TEST: ??Human Papillomavirus (HPV) High-Risk Genotyping Anal ysis INDICATION: ??Squamous cell carcinoma SPECIMEN: ??Lymph node, left neck (US-guided FNA) RESULTS: ??Positive for HPV genotype 16 INTERPRETATION: ??Results in dicate that the submitted tissue contained one of the 14 HPV types detected by this assay. Not all high-risk HPV genotypes are included in this test. METHODS: ??Highly purified g enomic DNA was extracted from a formalin fixed paraffin embedded tissue section aft er lysing of the cells. HPV genotyping was performed using the [employer] MeltPro High-Risk HPV Genotyping Test th at assays for the qualitative detection of 14 high-risk HPV genotypes in a variety of tissues. This test uses PCR followed by h igh-resolution melting curve analysis for the detection of 14 high-risk HPV types ( 16, 18, 31, 33, 35, 39, 45, 51, 52, 56, 58, 59, 66, and 68). High-risk HPV subt ypes are differentiated in one single reaction with a sensitivity of 200 copies per reaction. LIMITATIONS AND DISCLAIMERS ??: Although unlikely, rare variants (known or unknown) have the potential to inter fere with the performance of this test, producing false negative or false positive results. When genotyping results are not consistent with other clinical observa tions or test results, additional testing should be considered. This test was developed and its performance elsa acteristics determined by the Clinical Genomics and [employer] ([facility]) Laboratory at [facility]. It has not been cleared or approved by the FDA. The laboratory is regulated under CLIA as qualified to perform high-complexity testing. This test is used for clinical purposes. It should not be regarded as investigational or for research. Electronically signed by: ??Aj Mistry MD Verified: ??11/14/2018 ?Hematopathologist Performed at: ??-[facility] [place]. [place], [place], [place] ? No n-Rn Provider Relations Final DIAGNOSIS Positive for Malignancy Electronically signed by: ??John Noonan MD Verified: ??11/03/2018 ?Cytopathologist Performed at: ??-[facility] [place], [place], [place] DISCUSSION Lymph node: left neck (US-guided FNA) - Squamous cell carcinoma, non-keratinizing, P16 positive. HPV genotyping has been orde red; results will be reported separately when available. Dr. Carver has reviewed this case and concurs with the diagn osis. . DISCUSSION --- Immunohistochemistry Studies --- Interpretation: ? Immunohistochemical a ssays were performed (on paraffin-embedded cell block sections fixed in 10% neutr al buffered formalin for 6-72 hours) using the polymer technique with appropriate controls. The sections are studied for p40 and p16. The lesional cells are immunoreactive for p40 and p16. These immunohistochemical st udies provide ancillary information and are used only in conjunction with standard diagnostic procedures. CLINICAL INFORMATION Specimen Source : Lymph node: left neck (US-guided FNA - assisted) Pertinent Clinical Data and Significant Therapy: Lymph node biopsy, left; nearly 1 year hx of left upper neck mass. Clinical Impression : Per above Pertinent Radiologic Findings ??: (not provided) Gross Description: Received in Formalin approxi mately 50 mL total volume of clear, pink fluid, with clots. Total Preparation: Touch Prep 2; Cell Block 1. ?Marcus w Cytometry DIAGNOSIS Too few lymphoid cells are p resent in this specimen evaluated by flow analysis and precludes further delineation. NOTE: Final results are based on morphology and are report ed seperately, if performed. Electronically signed by: ??Tate Higgins MD Verified: ??10/31/2018 ?Hematopathologist Performed at: ??-[facility] [place]. [place], [place], [place] DISCUSSION Flow analysis is an ancillar y study. A definite diagnosis requires correlation with the morphologic features of this process and if necessary, correlation with other ancillary studies like immu nohistochemistry, enzyme cytochemistry and/or cyto/ molecular genetics. This test was developed and its performance elsa acteristics determined by the Clinical Flow Cytometry Lab oratory at [facility]. It has not been cleared or approve d by the U.S. Food and Drug Administration. ??The FDA has determined that such cleara nce or approval is not necessary. ??This test is used for clinical purposes. ??It kristine uld not be regarded as investigational or for research. This laboratory is certifie d under the Clinical Laboratory Improvement Act of 1988 (CLIA) as qualified to perform high complexity clinic al laboratory testing. SPECIMEN PROCESSING [id number] . SPECIMEN PROCESSING Cells for immunophenotypic analysis were derived from lymph node. CD45 vs side scatter gating was utilized to identify a lymphoid analysis region that comprises approximately 3-5% of all cells. The following markers were a ssessed: CD2, CD3, CD4, CD5, CD7, CD8, CD10, CD19, CD45, CD56, kappa light chain, and lambda light chain. CLINICAL INFORMATION adenopathy Specimen (Source) Anatomical Collection Method Collection Time Re ceived Time Location / / Volume Laterality 10/30/2018 10:02 AM EDT Timothy David MD PATHOLOGY/CYTOLOGY ORDERABLE S Performing Organization Address City/State/ZIP Code Phon e Number [place] [phone] IR Biopsy Lymph Node (Head/Neck) (10/30/2018 8:37 [...] level IIb st ations. Operators: Fellow: Bryan Strasus M.D. Attending: William Solomon M.D. Procedure/Teaching Attestation: [...] e number below. ? Electronically signed by: William Johns [facility] ([phone]), at 10/30/2018 11:33 AM Narrative 10/30/2018 11:33 AM EDT NEURORADIOLOGY PROCEDURE [...] contact e number below. Electronically signed by: William drew, [facility] ([phone]), at 10/30/2018 11:33 AM Timothy David MD [facility] IR ORDERABLES Immunophenotyping Flow Cytometry (10/30/2018 7:13 AM EDT) Component Value Ref Test Analysis Performed At Patholo gist Range Method Time Signature Immunophenotyping See [facility] Flow Comment [facility] Comment: When completed by the Pathologist, the F low Cytometry Report ([id number]) will display under the Pathology Result s section within eDH. Specimen Anatomical Collection Method Collection Time Receive d Time (Source) Location / / Volume Laterality Specimen of Other / Unknown 10/30/2018 7:13 AM 2018 unknown material EDT 10:24 AM ED T (specimen) Resulting Agency Comment Spec In Lab Timothy David MD HEMATOLOGY ORDERABLES Performing Organization Address City/[facility]/ZIP Code Phon e Number [address] Cytopathology Non-Gynecological (10/30/2018 7:13 AM EDT) Specimen Anatomical Collection Method Collection Time Receive d Time (Source) Location / / Volume Laterality AP Specimen 10/30/2018 7:13 AM 201 9 7:13 EDT AM EDT Narrative [facility] - 10/30/2018 7:13 AM EDT Specimen requisition ordered. ??Separate Pathology report to follow Timothy David MD PATHOLOGY/CYTOLOGY ORDERABLE S Performing Organization Address City/[facility] Phon e Number [address] APTT (10/30/2018 6:30 AM EDT) P athologist Signature PTT 30 25 - 37 sec [facility] Comment: The PTT is NOT appropriate for heparin m onitoring. Use the Anti-Xa level for heparin monitoring (HEP UFH) or LMWH mon itoring (HEP LMW). A PTT less than 37 seconds generally indicates adequate hem ostasis. Specimen Anatomical Collection Method Collection Time Receive d Time (Source) Location / / Volume Laterality Blood specimen 10/30/2018 6:30 AM 2 019 6:36 (specimen) EDT AM EDT Resulting Agency Comment Spec In Lab Timothy David MD HEMATOLOGY ORDERABLES Performing Organization Address City/[facility]/ZIP Code Phon e Number [address] Prothrombin Time (10/30/2018 6:30 AM EDT) athologist Signature PT 11.2 9.4 - 12.5 [facility] LABORATORY INR 1.0 [facility] Comment: An INR <2.0 indicates [...] Organization Address City/State/ZIP Code Phon e Number [place] [phone] Platelet count (10/30/2018 6:30 AM EDT) athologist Signature Platelets 222 145 - 357 [facility] x10(3)/[facility] LABORATORY Plat Immature 2.1 0.0 - 7.4 [facility] % % [facility] Comment: Limitation of the Immature Platelet Frac tion (IPF)-May be less reliable when the platelet count is less than 57t894/u L due to statistical imprecision. The IPF [...] in a decreased state of production. References: [employer] The Clinical Value of the Immature Platelet Fraction (IPF) in Cell Recovery Document Number [id number] 08/2010 [employer] The Role of the Imm ature Platelet Fraction (IPF) in the Differential Diagnosis of Thrombocytopen ia, Document [id number] V05 P007/17 Specimen Anatomical Collection Method Collection Time Receive d Time (Source) Location / / Volume Laterality Blood specimen 10/30/2018 6:30 AM 019 6:36 (specimen) EDT AM EDT Resulting Agency Comment Spec In Lab Timothy David MD HEMATOLOGY ORDERABLES Performing Organization Address City/State/ZIP [place] [address] documented in this encounter Visit Diagnoses Diagnosis Pre-op testing Preoperative examination, unspecified Neck mass Swelling, mass, or lump in head and neck documented in this encounter Administered Medications Inactive Administered Medications - up to 3 most recent administrations Medication Order MAR Action Action Date Dose Rate Site lidocaine (XYLOCAINE) 10 mg/mL (1 Given 10/30/2018 7:57 AM EDT 1 0 mg %) injection 10 mg 10 mg, Subcutaneous, ONCE, 1 dose, On Mon10/30/18 at 0745, For use in Interventional Radiology (IR) only for procedure with direct provider supervision and verbal order., Angio/IR (Intra-Procedure), Routine documented in this encounter Care Teams Health Information Administrator Relationship Specialty Start Date End Date Gregg Garcia MD PCP - General General Internal Medicine 09/24/18 [address] [place] [address] documented as of this encounter
--- OUTSIDE RECORDS SUMMARY | 2021-09-13 18:00 | XMS_ITS | Encounter Summary ---
:1975 Author Organization [facility] [place] [address] Care Team Providers Name Role Phone Gregg Garcia MD Primary Care Provider Reason for Referral Diagnostic Test (Routine) - Closed Specialty Diagnoses / Procedures Referred By Contact Refer red To Contact Radiology Diagnoses Oropharynx cancer Timothy David MD [facility] Rad Nuclear Med Procedures NM PET CT Standard Plus Head and Neck [facility] [place] [address] [place] [address] Referral ID Status Reason Start Date Expiration Date Visits V isits Requested Authorized [id number] Closed Specialty 11/16/2018 02/14/2019 1 1 Service Requested Reason for Visit Diagnostic Test (Routine) - Closed Specialty Diagnoses / Procedures Referred By Contact Refer red To Contact Radiology Diagnoses Oropharynx cancer Timothy David MD [facility] Rad Nuclear Med Procedures NM PET CT Standard Plus Head and Neck [facility] [place] [address] [place] [address] Referral ID Status Reason Start Date Expiration Date Visits V isits Requested Authorized [id number] Closed Specialty 11/16/2018 02/14/2019 1 1 Service Requested Encounter Details Date Type Department Care Team Description 11/22/2018 Hospital Encounter Nuclear Medicine at [place] [facility] Oropharynx cancer Shena Weinstein MD [facility] [address] OTOLARYNGOLOGY [address] DEPT. [phone] [place], [place] [address] Social History Tobacco Use Types [...] 10/04/2021 Office Visit Dermatology Tg Velasco MD [facility] ER [address] [place], [place] [address] (Wo rk) documented as of this encounter Procedures Procedure Name Priority Date/Time Associated Diagnosis Comme nts NM PET CT STANDARD Routine 11/22/2018 8:07 AM Oropharynx cance r Results for this PLUS HEAD [...] below. ? Electronically signed by: Latia Hawthorne [facility] ([phone]), at 11/22/2018 9:54 AM Narrative 11/22/2018 9:54 AM EDT EXAMINATION: NM PET CT STANDARD PLUS HEAD AND NECK CLINICAL HISTORY: newly diagnosed p16+ S CCa to the left neck. No visible primary noted. Please image for staging TECHNIQUE: Following IV injection of 18- hhpbue-5-jywlohykvkdq (FDG) a standard uptake of approximately 60 [...] staging TECHNIQUE: Following IV injection of 18- toheeh-0-ciygfveppxck (FDG) a standard uptake of approximately 60 [...] th e number below. Electronically signed by: Latia Hawthorne [facility] ([phone]), at 11/22/2018 9:54 AM Timothy David MD IMG PET ORDERABLES documented in this encounter Visit Diagnoses Diagnosis Oropharynx cancer Malignant neoplasm of oropharynx, unspec ified site documented in this encounter Care Teams Paper Colorer Relationship Specialty Start Date End Date Gregg Garcia MD PCP - General General Internal Medicine 09/24/18 [address] [place] [address] documented as of this encounter
--- OUTSIDE RECORDS SUMMARY | 2021-09-13 18:00 | XMS_ITS | Encounter Summary ---
:1975 Author Organization [facility] [address] Care Team Providers Name Role Phone Gregg Garcia MD Primary Care Provider Reason for Visit Diagnostic Test (Routine) - Closed Specialty Diagnoses / Procedures Referred By Contact Refer red To Contact Radiology Diagnoses Oropharynx cancer Timothy David MD [facility] Rad Nuclear Med Procedures NM PET CT Standard Plus Head and Neck [facility] [place] [address] [place] [address] Referral ID Status Reason Start Date Expiration Date Visits V isits Requested Authorized [id number] Closed Specialty 11/16/2018 02/14/2019 1 1 Service Requested Encounter Details Date Type Department Care Team Description 11/22/2018 Hospital Encounter Nuclear Medicine at [facility] Mary Hitchcock MD [facility] [place] [address] OTOLARYNGOLOGY DEPT. [phone] [place], [place] [address] (Wo rk) Social History Tobacco [...] 10/04/2021 Office Visit Dermatology Tg Velasco MD [facility] [address] [place] [id number] (Wo rk) documented as of this encounter Procedures Procedure Name Priority Date/Time Associated Diagnosis Comme nts NM PET CT STANDARD Routine 11/22/2018 8:07 AM Oropharynx cance r Results for this PLUS HEAD AND NECK EDT procedure are in the results section. POCT GLUCOSE Routine 11/22/2018 6:38 AM Results f or this EDT procedure are i n the results section. documented in this encounter Results POCT Glucose (11/22/2018 6:38 AM EDT) P athologist Signature POC Glucose 110 65 - 199 [facility] Comment: Supplemental ranges: <140 mg/dL before meals <180 mg/dL all other times of the day Specimen Anatomical Collection Method Collection Time Receive d Time (Source) Location / / Volume Laterality Blood specimen 11/22/2018 6:38 AM 019 6:38 (specimen) EDT AM EDT Timothy David MD POINT OF CARE TEST ORDERABLE S Performing Organization Address City/State/ZIP [place] [address] documented in this encounter Visit Diagnoses Not on filedocumented in this encounter Administered Medications Inactive Administered Medications - up to 3 most recent administrations Medication Order MAR Action Action Date Dose Rate Site fludeoxyglucose (F-18) FDG Given 11/22/2018 6:46 AM 14.2 mCi Right Arm injection 14.2 mCi EDT 14.2 mCi, Intravenous, ONCE PRN, 1 dose, Starting on Lee Ann 11/22/18 at 0646, Until Lee Ann 11/22/18 at 0646, Per Protocol, Routine documented in this encounter Care Teams Flight Test Supervisor Relationship Specialty Start Date End Date Gregg Garcia MD PCP - General General Internal Medicine 09/24/18 [address] [place] [address] documented as of this encounter
== END 2021-09-13 17:53 | disposition home or self-care (01) ==
LOC: LBO 17:52
PROVIDERS: PCP Nurse Practitioner; Visit Provider Internal Medicine Hematology & Oncology
DX: C09.9 Malignant neoplasm of tonsil, unspecified (principal); E78.5 Hyperlipidemia, unspecified
CPT/HCPCS: 36415; 80053; 84443; 85025

== ENCOUNTER 2021-11-01 08:00 | Outpatient (RCR) | payer OTHER, SELFPAY ==
[2021-10-25] MEDS: Normal Saline Flush 10 ML SYR IVP (08:44)
[2021-10-25 08:47] LABS: Abs Immature Grans 0.01 10^3/uL (0.0-0.06); Absolute Basophil Count 0.03 10^3/uL (0.0-0.2); Absolute Eosinophil Count 0.22 10^3/uL (0.0-0.7); Absolute Lymphocyte Count 0.85 10^3/uL (1.2-3.4); Absolute Monocyte Count 0.53 10^3/uL (0.1-0.8); Absolute Neutrophil Count 1.26 10^3/uL (1.2-6.7); Eosinophils % 7.6; HCT 38.7 % (40.0-50.0); HGB 13.1 g/dL (13.5-17.5); Immature Grans % 0.3; Lymphocytes % 29.3; MCHC 33.9 % (32.0-36.0); MCV 92 fL (80-95); MPV 8.1 fL (8.0-11.0); Monocytes % 18.3; Neutrophils % 43.5; Platelet Count 169 10^3/uL (130-400); RBC 4.22 10^6/uL (4.36-5.78); RDW 12.7 % (11.8-14.1); RDW-SD 42.5 fL
[2021-10-25 09:13] LABS: ALT 29 U/L (16-63); AST 20 U/L (15-37); Albumin 3.6 g/dL (3.4-5.0); Alkaline Phosphatase 50 U/L (46-116); Anion Gap 5.3 mmol/L (3-11); BUN 13 mg/dL (7-18); Bilirubin, Total 0.3 mg/dL (0.2-1.0); CO2 31.7 mmol/L (21.0-32.0); CREATININE 1.1 mg/dL (0.70-1.30); Calcium 9.2 mg/dL (8.5-10.1); Chloride 103 mmol/L (98-107); Glucose 120 mg/dL (74-106); Magnesium 1.9 mg/dL (1.8-2.4); Potassium 4.2 mmol/L (3.5-5.1); Sodium 140 mmol/L (136-145); TSH 2.91 uIU/mL (0.36-3.74); Total Protein 7.2 g/dL (6.4-8.2)
[2021-11-01] MEDS: Normal Saline Flush 10 ML SYR IVP (07:55)
[2021-11-01 08:17] LABS: Abs Immature Grans 0.02 10^3/uL (0.0-0.06); Absolute Basophil Count 0.04 10^3/uL (0.0-0.2); Absolute Eosinophil Count 0.15 10^3/uL (0.0-0.7); Absolute Lymphocyte Count 0.84 10^3/uL (1.2-3.4); Absolute Neutrophil Count 2.33 10^3/uL (1.2-6.7); Eosinophils % 3.9; HGB 14.2 g/dL (13.5-17.5); Immature Grans % 0.5; Lymphocytes % 21.6; MCH 31.2 pg (27.0-33.0); MCHC 34.6 % (32.0-36.0); MCV 90 fL (80-95); MPV 8.6 fL (8.0-11.0); Monocytes % 12.9; Neutrophils % 60.1; Platelet Count 136 10^3/uL (130-400); RBC 4.55 10^6/uL (4.36-5.78); RDW 12.8 % (11.8-14.1); RDW-SD 42.2 fL; WBC 3.88 10^3/uL (4.4-10.8)
[2021-11-01 08:49] LABS: ALT 26 U/L (16-63); AST 18 U/L (15-37); Albumin 3.7 g/dL (3.4-5.0); Alkaline Phosphatase 45 U/L (46-116); Anion Gap 8.6 mmol/L (3-11); BUN 13 mg/dL (7-18); Bilirubin, Total 0.4 mg/dL (0.2-1.0); CO2 29.4 mmol/L (21.0-32.0); CREATININE 0.9 mg/dL (0.70-1.30); Calcium 8.9 mg/dL (8.5-10.1); Chloride 105 mmol/L (98-107); Glucose 100 mg/dL (74-106); Magnesium 1.8 mg/dL (1.8-2.4); Potassium 4.1 mmol/L (3.5-5.1); Sodium 143 mmol/L (136-145); TSH 3.83 uIU/mL (0.36-3.74); Total Protein 7.3 g/dL (6.4-8.2)
== END 2021-11-03 23:59 | disposition home or self-care (01) ==
LOC: INF 08:00
PROVIDERS: PCP Nurse Practitioner; Visit Provider Internal Medicine Hematology & Oncology
DX: Z45.2 Encounter for adjustment and management of vascular access device (principal); C09.9 Malignant neoplasm of tonsil, unspecified
CPT/HCPCS: 36591; 80053; 83735; 84443; 85025

== ENCOUNTER 2021-11-29 07:40 | Outpatient (RCR) | payer OTHER, SELFPAY ==
[2021-11-22] MEDS: Normal Saline Flush 10 ML SYR IVP (08:28)
[2021-11-22 08:33] LABS: Abs Immature Grans 0.01 10^3/uL (0.0-0.06); Absolute Basophil Count 0.02 10^3/uL (0.0-0.2); Absolute Eosinophil Count 0.11 10^3/uL (0.0-0.7); Absolute Lymphocyte Count 0.89 10^3/uL (1.2-3.4); Absolute Monocyte Count 0.46 10^3/uL (0.1-0.8); Absolute Neutrophil Count 1.01 10^3/uL (1.2-6.7); Basophils % 0.8; Eosinophils % 4.4; HCT 38.5 % (40.0-50.0); HGB 13.2 g/dL (13.5-17.5); Immature Grans % 0.4; Lymphocytes % 35.6; MCH 31.7 pg (27.0-33.0); MCHC 34.3 % (32.0-36.0); MCV 92 fL (80-95); MPV 7.7 fL (8.0-11.0); Monocytes % 18.4; Neutrophils % 40.4; Platelet Count 141 10^3/uL (130-400); RBC 4.17 10^6/uL (4.36-5.78); RDW 13.2 % (11.8-14.1); RDW-SD 44.9 fL
[2021-11-22 09:10] LABS: ALT 24 U/L (16-63); AST 20 U/L (15-37); Albumin 3.6 g/dL (3.4-5.0); Alkaline Phosphatase 48 U/L (46-116); Anion Gap 5.3 mmol/L (3-11); BUN 12 mg/dL (7-18); Bilirubin, Total 0.5 mg/dL (0.2-1.0); CO2 31.7 mmol/L (21.0-32.0); CREATININE 1.1 mg/dL (0.70-1.30); Calcium 9.4 mg/dL (8.5-10.1); Chloride 103 mmol/L (98-107); Estimated GFR 83.84 (mL/min/1.73m2); Glucose 104 mg/dL (74-106); Magnesium 1.8 mg/dL (1.8-2.4); Potassium 4.1 mmol/L (3.5-5.1); Sodium 140 mmol/L (136-145); TSH 2.47 uIU/mL (0.36-3.74); Total Protein 7.1 g/dL (6.4-8.2)
[2021-11-29] MEDS: Normal Saline Flush 10 ML SYR IVP (07:47)
[2021-11-29 08:00] LABS: Abs Immature Grans 0.01 10^3/uL (0.0-0.06); Absolute Basophil Count 0.02 10^3/uL (0.0-0.2); Absolute Eosinophil Count 0.13 10^3/uL (0.0-0.7); Absolute Lymphocyte Count 1.09 10^3/uL (1.2-3.4); Absolute Monocyte Count 0.48 10^3/uL (0.1-0.8); Absolute Neutrophil Count 2.15 10^3/uL (1.2-6.7); Basophils % 0.5; Eosinophils % 3.4; HCT 39.3 % (40.0-50.0); HGB 13.4 g/dL (13.5-17.5); Immature Grans % 0.3; Lymphocytes % 28.1; MCH 31.9 pg (27.0-33.0); MCHC 34.1 % (32.0-36.0); MCV 94 fL (80-95); MPV 8.3 fL (8.0-11.0); Monocytes % 12.4; Neutrophils % 55.3; Platelet Count 134 10^3/uL (130-400); RDW 13.4 % (11.8-14.1); RDW-SD 46.1 fL; WBC 3.88 10^3/uL (4.4-10.8)
[2021-11-29 08:24] LABS: ALT 25 U/L (16-63); AST 15 U/L (15-37); Albumin 3.6 g/dL (3.4-5.0); Alkaline Phosphatase 54 U/L (46-116); Anion Gap 5.4 mmol/L (3-11); BUN 11 mg/dL (7-18); Bilirubin, Total 0.4 mg/dL (0.2-1.0); CO2 31.6 mmol/L (21.0-32.0); CREATININE 1.1 mg/dL (0.70-1.30); Calcium 9.4 mg/dL (8.5-10.1); Chloride 102 mmol/L (98-107); Estimated GFR 83.84 (mL/min/1.73m2); Glucose 111 mg/dL (74-106); Magnesium 1.7 mg/dL (1.8-2.4); Potassium 4.1 mmol/L (3.5-5.1); Sodium 139 mmol/L (136-145); TSH 4.77 uIU/mL (0.36-3.74); Total Protein 7.2 g/dL (6.4-8.2)
== END 2021-12-03 23:59 | disposition home or self-care (01) ==
LOC: INF 07:40
PROVIDERS: PCP Family Medicine; Visit Provider Internal Medicine Hematology & Oncology
DX: C09.9 Malignant neoplasm of tonsil, unspecified (principal); Z45.2 Encounter for adjustment and management of vascular access device
CPT/HCPCS: 36591; 80053; 83735; 84443; 85025

== ENCOUNTER 2021-12-27 08:23 | Outpatient (RCR) | payer OTHER, SELFPAY ==
[2021-12-27] MEDS: Normal Saline Flush 10 ML SYR IVP (08:36)
[2021-12-27 08:37] LABS: Abs Immature Grans 0.02 10^3/uL (0.0-0.06); Absolute Basophil Count 0.02 10^3/uL (0.0-0.2); Absolute Eosinophil Count 0.11 10^3/uL (0.0-0.7); Absolute Lymphocyte Count 0.95 10^3/uL (1.2-3.4); Absolute Monocyte Count 0.48 10^3/uL (0.1-0.8); Absolute Neutrophil Count 1.97 10^3/uL (1.2-6.7); Basophils % 0.6; Eosinophils % 3.1; HCT 38.1 % (40.0-50.0); HGB 13.1 g/dL (13.5-17.5); Immature Grans % 0.6; Lymphocytes % 26.8; MCH 32.2 pg (27.0-33.0); MCHC 34.4 % (32.0-36.0); MCV 94 fL (80-95); Monocytes % 13.5; Neutrophils % 55.4; Platelet Count 128 10^3/uL (130-400); RBC 4.07 10^6/uL (4.36-5.78); RDW 13.4 % (11.8-14.1); RDW-SD 46.2 fL; WBC 3.55 10^3/uL (4.4-10.8)
[2021-12-27 09:00] LABS: ALT 20 U/L (16-63); AST 16 U/L (15-37); Albumin 3.7 g/dL (3.4-5.0); Alkaline Phosphatase 53 U/L (46-116); Anion Gap 6.6 mmol/L (3-11); BUN 12 mg/dL (7-18); Bilirubin, Total 0.4 mg/dL (0.2-1.0); CO2 30.4 mmol/L (21.0-32.0); CREATININE 1.2 mg/dL (0.70-1.30); Calcium 9.3 mg/dL (8.5-10.1); Chloride 103 mmol/L (98-107); Estimated GFR 75.53 (mL/min/1.73m2); Glucose 116 mg/dL (74-106); Magnesium 1.8 mg/dL (1.8-2.4); Sodium 140 mmol/L (136-145); TSH 3.73 uIU/mL (0.36-3.74); Total Protein 7.4 g/dL (6.4-8.2)
== END 2022-01-03 23:59 | disposition home or self-care (01) ==
LOC: INF 08:23
PROVIDERS: PCP Family Medicine; Visit Provider Internal Medicine Hematology & Oncology
DX: Z45.2 Encounter for adjustment and management of vascular access device (principal); C09.9 Malignant neoplasm of tonsil, unspecified
CPT/HCPCS: 36591; 80053; 83735; 84443; 85025

== ENCOUNTER 2022-01-31 10:02 | Outpatient (RCR) | payer OTHER, SELFPAY ==
[2022-01-31 10:24] LABS: Abs Immature Grans 0.02 10^3/uL (0.0-0.06); Absolute Basophil Count 0.02 10^3/uL (0.0-0.2); Absolute Lymphocyte Count 1.05 10^3/uL (1.2-3.4); Absolute Monocyte Count 0.55 10^3/uL (0.1-0.8); Absolute Neutrophil Count 2.08 10^3/uL (1.2-6.7); Basophils % 0.5; Eosinophils % 2.6; HCT 38.5 % (40.0-50.0); HGB 13.2 g/dL (13.5-17.5); Immature Grans % 0.5; Lymphocytes % 27.5; MCH 33.2 pg (27.0-33.0); MCHC 34.3 % (32.0-36.0); MCV 97 fL (80-95); MPV 8.6 fL (8.0-11.0); Monocytes % 14.4; Neutrophils % 54.5; Platelet Count 144 10^3/uL (130-400); RBC 3.98 10^6/uL (4.36-5.78); RDW 12.8 % (11.8-14.1); RDW-SD 45.9 fL; WBC 3.82 10^3/uL (4.4-10.8)
[2022-01-31] MEDS: Normal Saline Flush 10 ML SYR IVP (10:29)
[2022-01-31 10:49] LABS: ALT 24 U/L (16-63); AST 18 U/L (15-37); Albumin 3.9 g/dL (3.4-5.0); Alkaline Phosphatase 52 U/L (46-116); Anion Gap 6.4 mmol/L (3-11); BUN 15 mg/dL (7-18); Bilirubin, Total 0.5 mg/dL (0.2-1.0); CO2 29.6 mmol/L (21.0-32.0); Calcium 9.1 mg/dL (8.5-10.1); Chloride 101 mmol/L (98-107); FREE T4 0.86 ng/dL (0.76-1.46); Glucose 129 mg/dL (74-106); Potassium 4.2 mmol/L (3.5-5.1); Sodium 137 mmol/L (136-145); TSH 5.04 uIU/mL (0.36-3.74); Total Protein 7.3 g/dL (6.4-8.2)
== END 2022-02-02 23:59 | disposition home or self-care (01) ==
LOC: INF 10:02
PROVIDERS: PCP Family Medicine; Visit Provider Internal Medicine Hematology & Oncology
DX: Z45.2 Encounter for adjustment and management of vascular access device (principal); C09.9 Malignant neoplasm of tonsil, unspecified
CPT/HCPCS: 36591; 80053; 83735; 84439; 84443; 85025

== ENCOUNTER 2022-03-01 03:22 | Outpatient (RCR) | payer OTHER, SELFPAY ==
[2022-03-01] MEDS: Normal Saline Flush 10 ML SYR IVP (10:31)
[2022-03-01 10:37] LABS: Abs Immature Grans 0.01 10^3/uL (0.0-0.06); Absolute Basophil Count 0.02 10^3/uL (0.0-0.2); Absolute Eosinophil Count 0.11 10^3/uL (0.0-0.7); Absolute Monocyte Count 0.57 10^3/uL (0.1-0.8); Absolute Neutrophil Count 2.04 10^3/uL (1.2-6.7); Basophils % 0.5; Eosinophils % 2.9; HCT 34.5 % (40.0-50.0); HGB 11.8 g/dL (13.5-17.5); Immature Grans % 0.3; Lymphocytes % 26.7; MCH 33.6 pg (27.0-33.0); MCHC 34.2 % (32.0-36.0); MCV 98 fL (80-95); MPV 8.2 fL (8.0-11.0); Monocytes % 15.2; Neutrophils % 54.4; Platelet Count 153 10^3/uL (130-400); RBC 3.51 10^6/uL (4.36-5.78); RDW 12.9 % (11.8-14.1); RDW-SD 46.1 fL; WBC 3.75 10^3/uL (4.4-10.8)
[2022-03-01 11:04] LABS: ALT 18 U/L (16-63); AST 17 U/L (15-37); Albumin 3.5 g/dL (3.4-5.0); Alkaline Phosphatase 52 U/L (46-116); Anion Gap 5.9 mmol/L (3-11); BUN 12 mg/dL (7-18); Bilirubin, Total 0.3 mg/dL (0.2-1.0); CO2 30.1 mmol/L (21.0-32.0); Calcium 8.7 mg/dL (8.5-10.1); Chloride 104 mmol/L (98-107); FREE T4 0.82 ng/dL (0.76-1.46); Glucose 103 mg/dL (74-106); Magnesium 1.9 mg/dL (1.8-2.4); Potassium 4.3 mmol/L (3.5-5.1); Sodium 140 mmol/L (136-145); TSH 1.84 uIU/mL (0.36-3.74)
== END 2022-03-05 23:59 | disposition home or self-care (01) ==
LOC: INF 03:22
PROVIDERS: PCP Family Medicine; Visit Provider Internal Medicine Hematology & Oncology
DX: C09.9 Malignant neoplasm of tonsil, unspecified (principal); Z45.2 Encounter for adjustment and management of vascular access device
CPT/HCPCS: 36591; 80053; 83735; 84439; 84443; 85025

== ENCOUNTER 2022-03-14 03:03 | Outpatient (RCR) | payer BC, SELFPAY ==
[2022-03-14] MEDS: Normal Saline Flush 10 ML SYR IVP (10:21)
[2022-03-14] MEDS: Heparin 500 UNITS/5 ML SYRINGE IV (10:21)
[2022-03-14 10:35] LABS: Abs Immature Grans 0.01 10^3/uL (0.0-0.06); Absolute Basophil Count 0.02 10^3/uL (0.0-0.2); Absolute Eosinophil Count 0.05 10^3/uL (0.0-0.7); Absolute Lymphocyte Count 1.01 10^3/uL (1.2-3.4); Absolute Monocyte Count 0.51 10^3/uL (0.1-0.8); Absolute Neutrophil Count 2.19 10^3/uL (1.2-6.7); Basophils % 0.5; Eosinophils % 1.3; HCT 33.9 % (40.0-50.0); HGB 11.6 g/dL (13.5-17.5); Immature Grans % 0.3; Lymphocytes % 26.6; MCH 33.1 pg (27.0-33.0); MCHC 34.2 % (32.0-36.0); MCV 97 fL (80-95); MPV 8.6 fL (8.0-11.0); Monocytes % 13.5; Neutrophils % 57.8; Platelet Count 148 10^3/uL (130-400); RDW 12.9 % (11.8-14.1); RDW-SD 45.4 fL; WBC 3.79 10^3/uL (4.4-10.8)
[2022-03-14 11:10] LABS: ALT 22 U/L (16-63); AST 18 U/L (15-37); Albumin 3.9 g/dL (3.4-5.0); Alkaline Phosphatase 51 U/L (46-116); Anion Gap 6.4 mmol/L (3-11); BUN 11 mg/dL (7-18); Bilirubin, Total 0.4 mg/dL (0.2-1.0); CO2 27.6 mmol/L (21.0-32.0); Calcium 9.2 mg/dL (8.5-10.1); Chloride 102 mmol/L (98-107); FREE T4 0.93 ng/dL (0.76-1.46); Glucose 100 mg/dL (74-106); Magnesium 2.1 mg/dL (1.8-2.4); Potassium 4.4 mmol/L (3.5-5.1); Sodium 136 mmol/L (136-145); TSH 3.21 uIU/mL (0.36-3.74); Total Protein 7.4 g/dL (6.4-8.2)
== END 2022-04-05 23:59 | disposition home or self-care (01) ==
LOC: INF 03:03
PROVIDERS: PCP Family Medicine; Visit Provider Internal Medicine Hematology & Oncology
DX: Z45.2 Encounter for adjustment and management of vascular access device (principal); C09.9 Malignant neoplasm of tonsil, unspecified
CPT/HCPCS: 36591; 80053; 83735; 84439; 84443; 85025

== ENCOUNTER 2022-05-02 02:00 | Outpatient (RCR) | payer BC, SELFPAY ==
[2022-04-11] MEDS: Normal Saline Flush 10 ML SYR IVP (13:04)
[2022-04-11 13:16] LABS: Abs Immature Grans 0.02 10^3/uL (0.0-0.06); Absolute Basophil Count 0.02 10^3/uL (0.0-0.2); Absolute Eosinophil Count 0.18 10^3/uL (0.0-0.7); Absolute Lymphocyte Count 1.12 10^3/uL (1.2-3.4); Absolute Monocyte Count 0.57 10^3/uL (0.1-0.8); Absolute Neutrophil Count 2.41 10^3/uL (1.2-6.7); Basophils % 0.5; Eosinophils % 4.2; HCT 36.1 % (40.0-50.0); HGB 12.4 g/dL (13.5-17.5); Immature Grans % 0.5; Lymphocytes % 25.9; MCH 33.4 pg (27.0-33.0); MCHC 34.3 % (32.0-36.0); MCV 97 fL (80-95); MPV 8.2 fL (8.0-11.0); Monocytes % 13.2; Neutrophils % 55.7; Platelet Count 212 10^3/uL (130-400); RBC 3.71 10^6/uL (4.36-5.78); RDW 12.6 % (11.8-14.1); RDW-SD 44.8 fL; WBC 4.33 10^3/uL (4.4-10.8)
[2022-04-11 13:46] LABS: ALT 39 U/L (16-63); AST 24 U/L (15-37); Albumin 3.9 g/dL (3.4-5.0); Alkaline Phosphatase 60 U/L (46-116); Anion Gap 6.2 mmol/L (3-11); BUN 12 mg/dL (7-18); Bilirubin, Total 0.3 mg/dL (0.2-1.0); CO2 28.8 mmol/L (21.0-32.0); Calcium 8.9 mg/dL (8.5-10.1); Chloride 103 mmol/L (98-107); FREE T4 0.78 ng/dL (0.76-1.46); Glucose 132 mg/dL (74-106); Magnesium 1.9 mg/dL (1.8-2.4); Potassium 4.1 mmol/L (3.5-5.1); Sodium 138 mmol/L (136-145); TSH 3.32 uIU/mL (0.36-3.74); Total Protein 7.4 g/dL (6.4-8.2)
[2022-05-02] MEDS: Normal Saline Flush 10 ML SYR IVP (12:53)
[2022-05-02 13:04] LABS: Abs Immature Grans 0.02 10^3/uL (0.0-0.06); Absolute Basophil Count 0.04 10^3/uL (0.0-0.2); Absolute Eosinophil Count 0.22 10^3/uL (0.0-0.7); Absolute Lymphocyte Count 1.24 10^3/uL (1.2-3.4); Absolute Monocyte Count 0.45 10^3/uL (0.1-0.8); Absolute Neutrophil Count 3.17 10^3/uL (1.2-6.7); Basophils % 0.8; Eosinophils % 4.3; HCT 38.8 % (40.0-50.0); Immature Grans % 0.4; Lymphocytes % 24.1; MCH 32.2 pg (27.0-33.0); MCHC 33.5 % (32.0-36.0); MCV 96 fL (80-95); MPV 8.4 fL (8.0-11.0); Monocytes % 8.8; Neutrophils % 61.6; Platelet Count 208 10^3/uL (130-400); RBC 4.04 10^6/uL (4.36-5.78); RDW 12.2 % (11.8-14.1); RDW-SD 43.7 fL; WBC 5.14 10^3/uL (4.4-10.8)
[2022-05-02 13:27] LABS: ALT 70 U/L (16-63); AST 36 U/L (15-37); Albumin 3.9 g/dL (3.4-5.0); Alkaline Phosphatase 55 U/L (46-116); Anion Gap 6.5 mmol/L (3-11); BUN 13 mg/dL (7-18); Bilirubin, Total 0.4 mg/dL (0.2-1.0); CO2 29.5 mmol/L (21.0-32.0); CREATININE 1.1 mg/dL (0.70-1.30); Calcium 9.2 mg/dL (8.5-10.1); Chloride 103 mmol/L (98-107); Estimated GFR 83.32 (mL/min/1.73m2); FREE T4 0.83 ng/dL (0.76-1.46); Glucose 127 mg/dL (74-106); Potassium 4.1 mmol/L (3.5-5.1); Sodium 139 mmol/L (136-145); TSH 2.62 uIU/mL (0.36-3.74); Total Protein 7.3 g/dL (6.4-8.2)
== END 2022-05-03 23:59 | disposition home or self-care (01) ==
LOC: INF 02:00
PROVIDERS: PCP Family Medicine; Visit Provider Internal Medicine Hematology & Oncology
DX: Z45.2 Encounter for adjustment and management of vascular access device (principal); C09.9 Malignant neoplasm of tonsil, unspecified
CPT/HCPCS: 36591; 80053; 83735; 84439; 84443; 85025

== ENCOUNTER 2022-05-23 03:41 | Outpatient (RCR) | payer BC, SELFPAY ==
[2022-05-23] MEDS: Normal Saline Flush 10 ML SYR IVP (09:25)
[2022-05-23 09:39] LABS: Abs Immature Grans 0.02 10^3/uL (0.0-0.06); Absolute Basophil Count 0.04 10^3/uL (0.0-0.2); Absolute Eosinophil Count 0.23 10^3/uL (0.0-0.7); Absolute Lymphocyte Count 1.27 10^3/uL (1.2-3.4); Absolute Monocyte Count 0.61 10^3/uL (0.1-0.8); Absolute Neutrophil Count 4.24 10^3/uL (1.2-6.7); Basophils % 0.6; Eosinophils % 3.6; HCT 39.1 % (40.0-50.0); HGB 13.5 g/dL (13.5-17.5); Immature Grans % 0.3; Lymphocytes % 19.8; MCH 32.8 pg (27.0-33.0); MCHC 34.5 % (32.0-36.0); MCV 95 fL (80-95); MPV 8.5 fL (8.0-11.0); Monocytes % 9.5; Neutrophils % 66.2; Platelet Count 194 10^3/uL (130-400); RBC 4.12 10^6/uL (4.36-5.78); RDW 11.8 % (11.8-14.1); WBC 6.41 10^3/uL (4.4-10.8)
[2022-05-23 10:11] LABS: ALT 37 U/L (16-63); AST 19 U/L (15-37); Albumin 3.8 g/dL (3.4-5.0); Alkaline Phosphatase 55 U/L (46-116); Anion Gap 7.3 mmol/L (3-11); BUN 15 mg/dL (7-18); Bilirubin, Total 0.4 mg/dL (0.2-1.0); CO2 28.7 mmol/L (21.0-32.0); Chloride 105 mmol/L (98-107); Estimated GFR 93.42 (mL/min/1.73m2); FREE T4 0.76 ng/dL (0.76-1.46); Glucose 101 mg/dL (74-106); Potassium 4.5 mmol/L (3.5-5.1); Sodium 141 mmol/L (136-145); TSH 3.79 uIU/mL (0.36-3.74); Total Protein 7.3 g/dL (6.4-8.2)
== END 2022-06-03 23:59 | disposition home or self-care (01) ==
LOC: INF 03:41
PROVIDERS: PCP Family Medicine; Visit Provider Internal Medicine Hematology & Oncology
DX: C09.9 Malignant neoplasm of tonsil, unspecified (principal); Z45.2 Encounter for adjustment and management of vascular access device
CPT/HCPCS: 36591; 80053; 83735; 84439; 84443; 85025

== ENCOUNTER 2022-06-13 00:55 | Outpatient (RCR) | payer BC, SELFPAY ==
[2022-06-13] MEDS: Normal Saline Flush 10 ML SYR IVP (12:18)
[2022-06-13 12:34] LABS: Abs Immature Grans 0.03 10^3/uL (0.0-0.06); Absolute Basophil Count 0.04 10^3/uL (0.0-0.2); Absolute Eosinophil Count 0.22 10^3/uL (0.0-0.7); Absolute Lymphocyte Count 0.94 10^3/uL (1.2-3.4); Absolute Monocyte Count 0.42 10^3/uL (0.1-0.8); Absolute Neutrophil Count 4.12 10^3/uL (1.2-6.7); Basophils % 0.7; Eosinophils % 3.8; HCT 40.1 % (40.0-50.0); Immature Grans % 0.5; Lymphocytes % 16.3; MCH 32.3 pg (27.0-33.0); MCHC 34.9 % (32.0-36.0); MCV 92 fL (80-95); MPV 8.2 fL (8.0-11.0); Monocytes % 7.3; Neutrophils % 71.4; Platelet Count 188 10^3/uL (130-400); RBC 4.34 10^6/uL (4.36-5.78); RDW 11.4 % (11.8-14.1); RDW-SD 38.8 fL; WBC 5.77 10^3/uL (4.4-10.8)
[2022-06-13 13:00] LABS: ALT 30 U/L (16-63); AST 20 U/L (15-37); Albumin 3.9 g/dL (3.4-5.0); Alkaline Phosphatase 63 U/L (46-116); Anion Gap 7.8 mmol/L (3-11); BUN 11 mg/dL (7-18); Bilirubin, Total 0.4 mg/dL (0.2-1.0); CO2 29.2 mmol/L (21.0-32.0); Calcium 9.2 mg/dL (8.5-10.1); Chloride 101 mmol/L (98-107); Estimated GFR 93.42 (mL/min/1.73m2); FREE T4 0.93 ng/dL (0.76-1.46); Glucose 159 mg/dL (74-106); Potassium 3.6 mmol/L (3.5-5.1); Sodium 138 mmol/L (136-145); TSH 3.38 uIU/mL (0.36-3.74); Total Protein 7.5 g/dL (6.4-8.2)
== END 2022-07-03 23:59 | disposition home or self-care (01) ==
LOC: INF 00:55
PROVIDERS: PCP Family Medicine; Visit Provider Internal Medicine Hematology & Oncology
DX: Z45.2 Encounter for adjustment and management of vascular access device (principal); C09.9 Malignant neoplasm of tonsil, unspecified
CPT/HCPCS: 36591; 80053; 83735; 84439; 84443; 85025

== ENCOUNTER 2022-09-10 15:13 | Emergency (ER) | payer BC, SELFPAY ==
[2022-09-10 15:19] VITALS: BP 123/84; PULSE 75; RESP 18; TEMP 36.3; O2SAT 98
[2022-09-10 16:36] LABS: Abs Immature Grans 0.02 10^3/uL (0.0-0.06); Absolute Basophil Count 0.04 10^3/uL (0.0-0.2); Absolute Eosinophil Count 0.19 10^3/uL (0.0-0.7); Absolute Lymphocyte Count 1.08 10^3/uL (1.2-3.4); Absolute Monocyte Count 0.61 10^3/uL (0.1-0.8); Absolute Neutrophil Count 5.12 10^3/uL (1.2-6.7); Basophils % 0.6; Eosinophils % 2.7; HCT 37.9 % (40.0-50.0); Immature Grans % 0.3; Lymphocytes % 15.3; MCH 31.3 pg (27.0-33.0); MCHC 34.3 % (32.0-36.0); MCV 91 fL (80-95); MPV 8.2 fL (8.0-11.0); Monocytes % 8.6; Neutrophils % 72.5; Platelet Count 181 10^3/uL (130-400); RBC 4.15 10^6/uL (4.36-5.78); RDW 12.2 % (11.8-14.1); RDW-SD 40.8 fL; WBC 7.06 10^3/uL (4.4-10.8)
[2022-09-10 16:37] LABS: Bilirubin Negative (Negative); Blood Negative (Negative); Clarity Clear (Clear); Glucose Negative (Negative); Ketones Negative (Negative); Leukocyte Esterase Negative (Negative); Nitrite Negative (Negative); Urobilinogen 0.2 mg/dL (Up to 0.2); pH 5.5 (5-8)
--- NOTE | 2022-09-10 16:45 | DI.CT_ITS ---
Exam(s) CT ABDOMEN PELVIS W EXAM: CT ABDOMEN PELVIS W CLINICAL HISTORY: RLQ abd Pain, Right Flank pain. TECHNIQUE: Imaging Protocol: Axial computed tomography images with coronal and sagittal reformatted images were created and reviewed CONTRAST MATERIAL: Intravenous: Omnipaque 350 Contrast volume:100 ml Oral: no COMPARISON: CR XR CHEST 2V PA LATERAL from 02/07/2019 FINDINGS: ABDOMEN: Lung Bases: 12 millimeter partially solid nodule left lung base. Solid component measures 5 millimet ers. Liver: Normal density. No measurable mass. Gallbladder and biliary tract: No radiodense calculus or dilation. Pancreas: Normal density, no abnormal calcifications or inflammatory process. Spleen: Normal. Kidneys: Normal size, contour and axis. No radiodense stones or obstructive uropathy. No suspicious m asses seen. Adrenal glands: No masses seen. Abdominal Aorta: Abdominal portion non-dilated. Soft tissues: Unremarkable. PELVIS: Bladder: No gross wall thickening. No calculi.No focal mass. Bowel: No obstruction. No bowel wall thickening. Appendix normal. Peritoneal cavity: No ascites, collection or mesenteric inflammatory response. Bones: Degenerative changes of right SI joint with bridging osteophyte. Spine unremarkable for age. Reproductive organs: Within normal limits. Lymph nodes: Unremarkable. Impression: No acute abnormality in the abdomen or pelvis. 12 millimeter partially solid nodule in the left lung base. If there are no outside prior exams, rec ommend CT chest at 3-6 months. RADIATION DOSE DELIVERED: 797.17mGy.cm Total DLP DATA REPOSITORY: All CT scans at this facility are submitted to the National Radiology Data Registry (NRDR) Dose Index Registry (DIR) with the [employer] (ACR). RADIATION OPTIMIZATION: All CT scans at this facility use at least one of these dose optimization te chniques: automated exposure control; mA and/or kV adjustment per patient size (includes targeted exa ms where dose is matched to clinical indication); or iterative reconstruction.
--- NOTE | 2022-09-10 16:48 | ED.GENADUL_ITS ---
Discharge Plan Disposition Patient Disposition: Home Condition: Stable Discharge Details Clinical Impression: SI joint arthritis, Flank pain Primary Care Provider: Candy Andino ED Provider: Myesha Heller Home Meds and New Rx's Prescriptions: Continued Keytruda 25 mg/mL solution 200 mg IV Q3W Rx Instructions: administer over 30 mins One Daily Complete 1 EACH tablet 1 ea PO DAILY acetaminophen 500 mg capsule 500 mg PO Q6H PRN fluticasone propionate [Flonase Allergy Relief] 50 mcg/actuation spray,suspension 1 spray intranasal BID Rx Instructions: administer into each nostril lorazepam 0.5 mg tablet 0.5 mg PO QID PRN multivitamin Tablet 1 tab PO DAILY ondansetron HCl 8 mg tablet 8 mg PO Q8H gabapentin 300 mg capsule 300 mg PO TID Rx Instructions: take one tablet in the am and at noon. Take 2 tablets at bedtime. Discharge Instructions Instructions: Osteoarthritis (ED), Flank Pain (ED) Additional Instructions: At this time CT shows no evidence for appendicitis or intra-abdominal problem. You do have some degenerative changes of the right SI joint which may attribute to your pain. Please take Tylenol or Ibuprofen with food every 4-6 hours as needed for pain and swelling. Follow up with primary care provider in 3-5 days. Return to ED sooner if any worsening or concerns. Increase oral fluids. Please continue to keep your appointment with your oncology team. You may discuss that you had a CT here and they can review it. There was a lung nodule noted on your CT however I am unsure if this is new or old. Referrals: [facility] [Outside] Candy Andino MD [Primary Care Provider] - 1 week Discharge Data Discharge Date/Time-TO BE ENTERED AT DEPARTURE: 09/10/22 18:48 Medical Decision Making 47-year-old male presents to the ER with a chief complaint of right lower quadrant abdominal pain that radiates into his flank. This began 2 to 3 days ago. He does have a history of neck and throat cancer which she has currently undergoing chemotherapy for. He denies any nausea vomiting diarrhea. Denies any fever or chills. Denies any problems urinating or burning with urination. Other past medical history includes hyperlipidemia dysphagia, vocal cord paralysis, atopic dermatitis migraine and squamous cell carcinoma of head and neck. Work-up ordered including CBC CMP urinalysis, lipase CT abdomen pelvis Zofran and morphine normal saline. Differential diagnosis includes not limited to kidney stone, appendicitis, bowel obstruction, mets of cancer, musculoskeletal strain. However patient has no vomiting urinalysis shows no blood no leukocytes no signs of UTI. CBC shows no leukocytosis hemoglobin 13 hematocrit 37.9 which is largely at baseline. Glucose 159. CT results noted below. No evidence of appendicitis or kidney stones according to radiology. There is degenerative changes at the SI joint which may contribute to patient's pain. Patient is due to start chemotherapy reports according to his report. We will discuss the results with him and plan for discharge with home care and follow-up care and strict return instructions. This text was generated using [employer] system, please disregard any oddities of phrase or misspellings. Imaging Data Radiologic Study: Imaging: CT Scan Radiologist's impression: FINDINGS: Lungs: 12 mm subsolid nodule noted in the posterior left lung base. Lower lungs are otherwise clear. Liver: Normal. No mass. Gallbladder and bile ducts: Normal. No calcified stones. No ductal dilation. Pancreas: Normal. No ductal dilation. Spleen: Normal. No splenomegaly. Adrenal glands: Normal. No mass. Kidneys and ureters: Normal. No hydronephrosis. Stomach and bowel: Unremarkable. No obstruction. No mucosal thickening. Appendix: The appendix is visualized and appears normal. Intraperitoneal space: Unremarkable. No free air. No significant fluid collection. Vasculature: Unremarkable. No abdominal aortic aneurysm. Lymph nodes: Unremarkable. No enlarged lymph nodes. Urinary bladder: Unremarkable as visualized. Reproductive: Unremarkable as visualized. Bones/joints: Moderate syndesmophyte formation of the right sacroiliac joint. Bones are otherwise unremarkable. Soft tissues: Unremarkable. IMPRESSION: 1. No acute abnormality. 2. Degenerative changes of the right SI joint 3. 12 mm subsolid right lower lobe pulmonary nodule. Recommend CT Chest at 3-6 months to confirm persistence of the nodule. If unchanged and solid component remains < 6 mm, annual CT Chest should be performed for 5 years. (Reference: Jack) References: Jack Brady et al. Guidelines for Management of Incidental Pulmonary Nodules Detected on CT Images: From the Fleischner Society 2017. Radiology. 2017;284(1):228-243. Thank you for allowing us to participate in the care of your patient. Dictated and Authenticated by: Jair Rosales MD Lab Data Lab results reviewed: Yes I reviewed the patient's lab results. Labs: Laboratory Tests Range/Units 09/10/22 09/10/22 09/10/22 16:29 16:29 16:29 WBC (4.4-10.8) 10^3/uL 7.06 RBC (4.36-5.78) 10^6/uL 4.15 L Hgb (13.5-17.5) g/dL 13.0 L Hct (40.0-50.0) % 37.9 L MCV (80-95) fL 91 MCH (27.0-33.0) pg 31.3 MCHC (32.0-36.0) % 34.3 RDW (11.8-14.1) % 12.2 Plt Count (130-400) 10^3/uL 181 MPV (8.0-11.0) fL 8.2 Immature Gran % 0.3 Neutrophils % 72.5 Lymphocytes % 15.3 Monocytes % 8.6 Eosinophils % 2.7 Basophils % 0.6 Nucleated RBC % (0.0-0.3) % 0.0 Absolute Neutrophils (1.2-6.7) 10^3/uL 5.12 Absolute Lymphocytes (1.2-3.4) 10^3/uL 1.08 L Absolute Monocytes (0.1-0.8) 10^3/uL 0.61 Absolute Eosinophils (0.0-0.7) 10^3/uL 0.19 Absolute Basophils (0.0-0.2) 10^3/uL 0.04 Sodium (136-145) mmol/L 141 Potassium (3.5-5.1) mmol/L 4.3 Chloride (98-107) mmol/L 104 Carbon Dioxide (21.0-32.0) mmol/L 28.9 Anion Gap (3-11) mmol/L 8.1 BUN (7-18) mg/dL 16 Creatinine (0.70-1.30) mg/dL 1.2 Est GFR (CKD-EPI 2020) (mL/min/1.73m2) 75.06 Glucose (74-106) mg/dL 116 H Calcium (8.5-10.1) mg/dL 9.1 Magnesium (1.8-2.4) mg/dL 1.9 Total Bilirubin (0.2-1.0) mg/dL 0.3 AST (15-37) U/L 15 ALT (16-63) U/L 15 L Alkaline Phosphatase (46-116) U/L 55 Troponin I (<or=60) ng/L < 50 Total Protein (6.4-8.2) g/dL 6.9 Albumin (3.4-5.0) g/dL 3.6 Lipase (16-77) U/L 28 Urine Color (Yellow) Yellow Urine Clarity (Clear) Clear Urine pH (5-8) 5.5 Ur Specific [place] (1.005-1.025) 1.020 Urine Protein (Negative) mg/dL Negative Urine Ketones (Negative) mg/dL Negative Urine Blood (Negative) Negative Urine Nitrite (Negative) Negative Urine Bilirubin (Negative) Negative Urine Urobilinogen (Up to 0.2) mg/dL 0.2 Ur Leukocyte Esterase (Negative) Negative Urine Glucose (Negative) mg/dL Negative Range/Units 09/10/22 19:17 WBC (4.4-10.8) 10^3/uL RBC (4.36-5.78) 10^6/uL Hgb (13.5-17.5) g/dL Hct (40.0-50.0) % MCV (80-95) fL MCH (27.0-33.0) pg MCHC (32.0-36.0) % RDW (11.8-14.1) % Plt Count (130-400) 10^3/uL MPV (8.0-11.0) fL Immature Gran % Neutrophils % Lymphocytes % Monocytes % Eosinophils % Basophils % Nucleated RBC % (0.0-0.3) % Absolute Neutrophils (1.2-6.7) 10^3/uL Absolute Lymphocytes (1.2-3.4) 10^3/uL Absolute Monocytes (0.1-0.8) 10^3/uL Absolute Eosinophils (0.0-0.7) 10^3/uL Absolute Basophils (0.0-0.2) 10^3/uL Sodium (136-145) mmol/L Potassium (3.5-5.1) mmol/L Chloride (98-107) mmol/L Carbon Dioxide (21.0-32.0) mmol/L Anion Gap (3-11) mmol/L BUN (7-18) mg/dL Creatinine (0.70-1.30) mg/dL Est GFR (CKD-EPI 2020) (mL/min/1.73m2) Glucose (74-106) mg/dL Calcium (8.5-10.1) mg/dL Magnesium (1.8-2.4) mg/dL Total Bilirubin (0.2-1.0) mg/dL AST (15-37) U/L ALT (16-63) U/L Alkaline Phosphatase (46-116) U/L Troponin I (<or=60) ng/L Cancelled Total Protein (6.4-8.2) g/dL Albumin (3.4-5.0) g/dL Lipase (16-77) U/L Urine Color (Yellow) Urine Clarity (Clear) Urine pH (5-8) Ur Specific [place] (1.005-1.025) Urine Protein (Negative) mg/dL Urine Ketones (Negative) mg/dL Urine Blood (Negative) Urine Nitrite (Negative) Urine Bilirubin (Negative) Urine Urobilinogen (Up to 0.2) mg/dL Ur Leukocyte Esterase (Negative) Urine Glucose (Negative) mg/dL HPI General Mode of arrival: ambulatory . Date/Time Provider Initiated Documentation: 09/10/22 16:00 . Limitations to Documentation: no limitations . Information obtained by: patient, RN notes reviewed and old records reviewed . HPI Narrative: 47-year-old male presents to the ER with a chief complaint of right lower quadrant abdominal pain that radiates into his flank. This began 2 to 3 days ago. He does have a history of neck and throat cancer which she has currently undergoing chemotherapy for. He denies any nausea vomiting diarrhea. Denies any fever or chills. Denies any problems urinating or burning with urination. Other past medical history includes hyperlipidemia dysphagia, vocal cord paralysis, atopic dermatitis migraine and squamous cell carcinoma of head and neck. Related Data Home Medications Medication Instructions Recorded Confirmed multivitamin with minerals (One 1 ea PO DAILY 10/01/12 09/10/22 Daily Complete tablet) pembrolizumab 25 mg/mL intravenous 200 mg IV Q3W 05/23/22 09/10/22 solution (Keytruda) acetaminophen 500 mg capsule 500 mg PO Q6H PRN 06/07/22 09/10/22 fluticasone propionate 50 1 spray intranasal BID 06/07/22 09/10/22 mcg/actuation nasal spray,suspension (Flonase Allergy Relief) gabapentin 300 mg capsule 300 mg PO TID 06/07/22 lorazepam 0.5 mg tablet 0.5 mg PO QID PRN 06/07/22 09/10/22 multivitamin 1 tab PO DAILY 06/07/22 09/10/22 ondansetron HCl 8 mg tablet 8 mg PO Q8H 06/07/22 09/10/22 Allergies Allergy/AdvReac Type Severity Reaction Status Date / Time MAGNESIUM SILICAT Allergy Intermediate ITCHING Uncoded 05/23/22 18:00 General Stated Complaint: Abd Prob MARYBETH: 3 Review of Systems All systems reviewed & are unremarkable except as noted in HPI and below Gastrointestinal Gastrointestinal: Reports abdominal pain PFSH All Active Problems (Updated 09/10/22 @ 18:18 by Myesha Heller NP) SI joint arthritis (Acute) Flank pain (Acute) 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 Atopic dermatitis (Chronic) Migraine (Acute) Medical History Chronic cough Drug-induced nausea and vomiting Eosinophilic esophagitis Neck mass Tonsil cancer Trismus Vocal cord paralysis Surgical History History of esophagogastroduodenoscopy (EGD) KNEE SURGERY 02/2011 RIGHT Nasal septoplasty Family History Father Diabetes Essential hypertension Brother Diabetes Grandfather Heart disease Grandmother Heart disease FAMILY HISTORY Hyperlipidemia Brother Cancer KIDNEY CANCER Paternal Uncle Cancer ESOPHAGEAL CANCER Social History Smoking/Tobacco Use Status: Former Tobacco Use tobacco type: cigarettes Quit Date: 03/06/99 Second Hand Exposure: Yes Smoking risk assessment performed?: Yes Alcohol Intake: former Details: ONCE TO TWICE PER WEEK Drug use: Occasionally Substance use type: marijuana Caregiver/Support person: No Household members: spouse and children Housing: house Communication Needs: None Do you need help understanding health information?: Never Pets and animals: Yes Pets and animals: dog(s) Sexually active: Yes Do you think of yourself as: straight/heterosexual Current gender identity: male What is your relationship status?: How often do you talk on the phone with friends or family?: never How often do you get together with friends or relatives?: once per week How often do you attend restorationist or anabaptism services?: decline to answer Do you belong to any clubs or organized social groups?: no Panel score (0-1 are the most socially isolated patients): 1 Duration: < 15 minutes/day Frequency: 1-2 times per week Jordyn/Scientology: Latter Day Special jordyn needs: No Seatbelt use: always Helmet use: Yes Helmet use: always Drive intox or ride w/intox driver material handler: No Do you feel safe at home: Yes Do you feel safe in your relationship?: Yes Exam Narrative Exam Narrative: Constitutional: Alert and oriented x3. Appears stated age. Normal body habitus. Head: Normocephalic, no trauma. Eyes: Pupils PERRL, Red reflex noted, EOM's intact. Eyelids symmetrical without lesions, discharge, or swelling. Chest: RRR, Normal S1, S2, distal pulses intact. Patient has Port-A-Cath to the right anterior chest. Resp: Lungs clear to auscultation bilaterally, no wheezes, rales, or rhonchi. Diminished in the right lower lobe Abdomen: Soft, non-distended, Normoactive bowel sounds all 4 quads. Mild pressure noted with right lower quadrant palpation does have some right flank pain with palpation right CVA tenderness. No midline L-spine tenderness. Musculoskeletal: Normal gait, 5/5 strength to all four extremities. Skin: No suspicious rashes or lesions. Capillary refill less than 2 sec. Neurologic: Cranial nerves II-XII intact. Alert and oriented x 3. Motor: No deficits noted. Sensory: Intact bilaterally all 4 extremities. Reflexes: DTR's intact bilaterally.. Hematologic/Lymphatic: No ecchymosis, no lymphadenopathy. Course Vital Signs Vital signs: Vital Signs Temperature 36.3 C L 09/10/22 15:19 Pulse 75 09/10/22 15:19 Respiratory Rate 18 09/10/22 15:19 Blood Pressure 123/84 09/10/22 15:19 Pulse Oximetry 98 09/10/22 15:19 Temperature 36.3 C L 09/10/22 15:19 Pulse 75 09/10/22 15:19 Respiratory Rate 18 09/10/22 15:19 Respiratory Effort Normal, Non-Labored 09/10/22 15:55 Blood Pressure 123/84 09/10/22 15:19 Blood Pressure Position Sitting 09/10/22 15:19 Pulse Oximetry 98 09/10/22 15:19 Oxygen Delivery Method Room Air 09/10/22 15:19 Oxygen Flow Rate 0 09/10/22 15:19 Pain Level 7 09/10/22 15:55 Lab/Test Results Lab/Test Results: Laboratory Tests Range/Units 09/10/22 09/10/22 16:29 16:29 WBC (4.4-10.8) 10^3/uL 7.06 RBC (4.36-5.78) 10^6/uL 4.15 L Hgb (13.5-17.5) g/dL 13.0 L Hct (40.0-50.0) % 37.9 L MCV (80-95) fL 91 MCH (27.0-33.0) pg 31.3 MCHC (32.0-36.0) % 34.3 RDW (11.8-14.1) % 12.2 Plt Count (130-400) 10^3/uL 181 MPV (8.0-11.0) fL 8.2 Immature Gran % 0.3 Neutrophils % 72.5 Lymphocytes % 15.3 Monocytes % 8.6 Eosinophils % 2.7 Basophils % 0.6 Nucleated RBC % (0.0-0.3) % 0.0 Absolute Neutrophils (1.2-6.7) 10^3/uL 5.12 Absolute Lymphocytes (1.2-3.4) 10^3/uL 1.08 L Absolute Monocytes (0.1-0.8) 10^3/uL 0.61 Absolute Eosinophils (0.0-0.7) 10^3/uL 0.19 Absolute Basophils (0.0-0.2) 10^3/uL 0.04 Urine Color (Yellow) Yellow Urine Clarity (Clear) Clear Urine pH (5-8) 5.5 Ur Specific [place] (1.005-1.025) 1.020 Urine Protein (Negative) mg/dL Negative Urine Ketones (Negative) mg/dL Negative Urine Blood (Negative) Negative Urine Nitrite (Negative) Negative Urine Bilirubin (Negative) Negative Urine Urobilinogen (Up to 0.2) mg/dL 0.2 Ur Leukocyte Esterase (Negative) Negative Urine Glucose (Negative) mg/dL Negative
[2022-09-10 16:58] LABS: ALT 15 U/L (16-63); AST 15 U/L (15-37); Albumin 3.6 g/dL (3.4-5.0); Alkaline Phosphatase 55 U/L (46-116); Anion Gap 8.1 mmol/L (3-11); BUN 16 mg/dL (7-18); Bilirubin, Total 0.3 mg/dL (0.2-1.0); CO2 28.9 mmol/L (21.0-32.0); CREATININE 1.2 mg/dL (0.70-1.30); Calcium 9.1 mg/dL (8.5-10.1); Chloride 104 mmol/L (98-107); Estimated GFR 75.06 (mL/min/1.73m2); Glucose 116 mg/dL (74-106); Lipase 28 U/L (16-77); Magnesium 1.9 mg/dL (1.8-2.4); Potassium 4.3 mmol/L (3.5-5.1); Sodium 141 mmol/L (136-145); Total Protein 6.9 g/dL (6.4-8.2); Troponin I < 50 ng/L (<or=60)
[2022-09-10] MEDS: Ondansetron 4 MG/2 ML VIAL IVP (16:58)
[2022-09-10] MEDS: MORPHine 4 MG/ML SYR IVP (16:58)
[2022-09-10] MEDS: Normal Saline 1,000 ML 300 ML IV (17:06)
[2022-09-10] MEDS: Normal Saline - Diluent 50 ML VIAL IJ (17:35)
[2022-09-10] MEDS: Omnipaque 350 MG/ML 500 ML BTL-Imaging package 100 ML IJ (17:37)
[2022-09-10] MEDS: Normal Saline Flush 10 ML SYR IVP (17:38)
--- NOTE | 2022-09-10 18:07 | DI.VRAD_ITS ---
PROCEDURE INFORMATION: Exam: CT Abdomen And Pelvis With Contrast Exam date and time: 09/10/2022 5:34 PM Age: 47 years old Clinical indication: Abdominal pain; Additional info: Rlq abd pain, right flank pain TECHNIQUE: Imaging protocol: Computed tomography of the abdomen and pelvis with contrast. Contrast material: OMNIPAQUE 350; Contrast volume: 100 ml; Contrast route: INTRAVENOUS (IV); COMPARISON: CR XR CHEST 2V PA LATERAL 02/07/2019 12:27 PM FINDINGS: Lungs: 12 mm subsolid nodule noted in the posterior left lung base. Lower lungs are otherwise clear. Liver: Normal. No mass. Gallbladder and bile ducts: Normal. No calcified stones. No ductal dilation. Pancreas: Normal. No ductal dilation. Spleen: Normal. No splenomegaly. Adrenal glands: Normal. No mass. Kidneys and ureters: Normal. No hydronephrosis. Stomach and bowel: Unremarkable. No obstruction. No mucosal thickening. Appendix: The appendix is visualized and appears normal. Intraperitoneal space: Unremarkable. No free air. No significant fluid collection. Vasculature: Unremarkable. No abdominal aortic aneurysm. Lymph nodes: Unremarkable. No enlarged lymph nodes. Urinary bladder: Unremarkable as visualized. Reproductive: Unremarkable as visualized. Bones/joints: Moderate syndesmophyte formation of the right sacroiliac joint. Bones are otherwise unremarkable. Soft tissues: Unremarkable. IMPRESSION: 1. No acute abnormality. 2. Degenerative changes of the right SI joint 3. 12 mm subsolid right lower lobe pulmonary nodule. Recommend CT Chest at 3-6 months to confirm persistence of the nodule. If unchanged and solid component remains < 6 mm, annual CT Chest should be performed for 5 years. (Reference: Jack) References: Jack Brady et al. Guidelines for Management of Incidental Pulmonary Nodules Detected on CT Images: From the Fleischner Society 2017. Radiology. 2017;284(1):228-243. Dictated and Authenticated by: Jair Rosales MD. Ordering:ULICES Brunner MD
[2022-09-10 18:39] VITALS: BP 123/70; PULSE 69; RESP 22; TEMP 37.4; O2SAT 96
== END 2022-09-10 18:48 | disposition home or self-care (01) ==
PROVIDERS: Emergency Provider Registered Nurse Emergency; PCP Family Medicine
DX: R10.31 Right lower quadrant pain (principal); M47.817 Spondylosis without myelopathy or radiculopathy, lumbosacral region; Z87.891 Personal history of nicotine dependence; C76.0 Malignant neoplasm of head, face and neck; Z92.21 Personal history of antineoplastic chemotherapy
CPT/HCPCS: 80053; 83690; 96360; 96361; 99285; 74177; 81003; 83735; 84484; 85025; 99283; J2270; J2405

== ENCOUNTER 2022-11-28 13:36 | Emergency (ER) | payer BC, SELFPAY ==
[2022-11-28 13:42] VITALS: BP 132/80; PULSE 66; RESP 15; TEMP 36.8; O2SAT 98
--- NOTE | 2022-11-28 14:48 | NUR.NOTE ---
Addendum entered by Renetta Guzman 11/29/22 16:12: This is an edit to contact information to [facility]. P [phone] F [phone] Dr. Larry Calderon (Medical Oncology P [phone]) Original Note: Nursing Note: [facility] Triage nurse: [phone] until 5pm. Main Line [phone] after 5pm and they will page Dr Calderon.
--- NOTE | 2022-11-28 15:15 | DI.MRI_ITS ---
Exam(s) MR BRAIN WO/W EXAM: MR BRAIN WO/W CLINICAL HISTORY: L facial weakness x weeks, chemotherapy TECHNIQUE: Multiplanar multisequence MRI of the brain was performed. Both noninfused and contrast i nfused sequences were performed. IV Contrast injected was 17 cc Dotarem. COMPARISON: MR MR BRAIN WO/W from 07/31/2019 FINDINGS: CEREBRAL PARENCHYMA: There is an enhancing intra and extra-axial mass in the left posterior fossa inv olving the left skull base and left jugular foramen and the hypoglossal canal. There also appears to be contiguous involvement of the left cerebellar hemisphere at this level.. This enhancing mass measu res approximately 2.5 x 2.3 x 2 cm and involves the region of the left 9th through 12th cranial nerve s. There is also abnormal involvement-enhancement in the left skull base occiput region/left clivus and left occipital condyle and also involvement of the left petrous temporal bone. There is a small focus of enhancement in the opposite-right porous acoustic is cerebellopontine angle region measuring 4 mm. Victor Hugo cisterna magna noted, similar to previous. DWI: No areas of restricted diffusion to suggest acute ischemic event. SWI: No microhemorrhages evident. Findings appear to be confined to the posterior fossa without evidence of lesions in the brain and ex tra-axial space in the supra tentorial compartment. Ventricles are not enlarged or shifted. No eviden ce of intracranial hemorrhage. PITUITARY GLAND: No mass nor parasellar abnormality. No obvious abnormality in the cavernous sinuses. FLOW VOIDS: The expected flow void are noted. No evidence of obvious aneurysm nor obvious vascular ma lformation. PARANASAL SINUSES: The visualized paranasal sinuses appear unremarkable. Mastoid air cells clear. ORBITS: No obvious abnormal findings. IMPRESSION: 1. Enhancing extra and intra-axial mass in the region of left skull base-left posterior fossa as desc ribed above, highly suspicious for metastatic malignancy. 2. Also small 4 millimeter focus of enhancement in the porous acoustic is in the opposite-right side. May also be metastatic versus primary. DATA REPOSITORY:
--- NOTE | 2022-11-28 15:23 | W.ED.GENAD ---
Discharge Plan Disposition Patient Disposition: Home Condition: Good Discharge Details Clinical Impression: Metastatic cancer, Facial droop Primary Care Provider: Candy Andino ED Provider: Gina Garcia Home Meds and New Rx's Prescriptions: New dexamethasone 4 mg tablet 4 mg PO BID Qty: 90 0RF No Action Keytruda 25 mg/mL solution 200 mg IV Q3W Rx Instructions: administer over 30 mins One Daily Complete 1 EACH tablet 1 ea PO DAILY acetaminophen 500 mg capsule 500 mg PO Q6H PRN fluticasone propionate [Flonase Allergy Relief] 50 mcg/actuation spray,suspension 1 spray intranasal BID Rx Instructions: administer into each nostril lorazepam 0.5 mg tablet 0.5 mg PO QID PRN multivitamin Tablet 1 tab PO DAILY ondansetron HCl 8 mg tablet 8 mg PO Q8H gabapentin 300 mg capsule 300 mg PO TID Rx Instructions: take one tablet in the am and at noon. Take 2 tablets at bedtime. sulfamethoxazole-trimethoprim 400-80 mg Tablet 1 tab PO DAILY omeprazole 20 mg Tablet,Delayed Release (Dr/Ec) 20 mg PO DAILY Discharge Instructions Additional Instructions: Dr. Calderon would like you to increase the dose of your dexamethasone; take 4mg in the morning and 4mg in the evening. Continue taking your eliquis. Call your oncologist tomorrow to schedule an appointment to followup as soon as possible to discuss your visit today. Return to the emergency department for new or worsening symptoms, including new numbness or weakness, difficulty speaking, new or worsening confusion, severe headache, vomiting, or if you have any other concerns. Medical Decision Making 47yo male with metastatic cancer (primary tonsillar/squamous) on active chemotherapy last infusion , hx DVT/PE on Eliquis, presenting for worsening left sided facial droop x several weeks to months with new onset intermittent confusion worsening in frequency x 3 weeks, much worse this week after his chemo infusion. Advised by his oncologist to present to the ED for evaluation/imaging with concern for CVA/TIA. Vital signs reassuring on arrival. Left facial droop on exam, otherwise non-focal neurologic exam. Currently on chemotherapy, eliquis, and steroid medication. Labs reviewed as below, CBC & CMP with no actionable abnormalities, mild anemia. UA not infected. MRI brain performed; discussed with radiologist health care liaison who also requested VRAD read from neuroradiology; reads reviewed as below. 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 No evident infarcts. Mass known to patient prior. Discussed with patient's oncologist Dr. Calderon at [facility]; as patient on eliquis jugular thrombus though to be most likely tumor. Without prior imaging availble unclear if mass is progressing, however no urgent interventions indicated; Dr. Calderon would like to increase dexamethasone dose and followup with patient in clinic. Findings and plan discussed with Mr. Rosario who is in agreement. On reassessment he remains non-toxic appearing with reassuring vitals signs, left facial droop and otherwise normal neurologic exam. Discharged home; discharge instructions including return precautions were reviewed with patient who verbalized understanding. All questions were answered and they are in full agreement with the plan. Imaging Data Radiologic Study: Imaging: MRI Radiologist's impression: Heide: IMPRESSION: 1. Enhancing extra and intra-axial mass in the region of left skull base-left posterior fossa as described above, highly suspicious for metastatic malignancy. 2. Also small 4 millimeter focus of enhancement in the porous acoustic is in the opposite-right side. May also be metastatic versus primary. VRAD: IMPRESSION: 1. ? Enhancing predominantly extra-axial mass involving the left skull base and left posterior fossa concerning for residual/recurrent tumor given the patient's history. The location and imaging appearance are concerning for perineural spread of tumor with intracranial and left cerebellar involvement/direct invasion as well as likely direct invasion of the left base of skull. Metastatic disease is a differential consideration. 2. ? Questionable tumor thrombus versus bland thrombus involving the left jugular bulb and cranial left internal jugular vein. 3. ? Additional focus of enhancement at the right porous acusticus may represent leptomeningeal metastatic disease. Dictated and Authenticated by: Edward Brooks MD. Lab Data Lab results reviewed: Yes I reviewed the patient's lab results. Labs: Laboratory Tests Range/Units 11/28/22 11/28/22 11/28/22 15:45 15:45 15:45 WBC (4.4-10.8) 10^3/uL 9.58 RBC (4.36-5.78) 10^6/uL 4.16 L Hgb (13.5-17.5) g/dL 13.4 L Hct (40.0-50.0) % 39.2 L MCV (80-95) fL 94 MCH (27.0-33.0) pg 32.2 MCHC (32.0-36.0) % 34.2 RDW (11.8-14.1) % 14.4 H Plt Count (130-400) 10^3/uL 152 MPV (8.0-11.0) fL 8.1 Immature Gran % 0.5 Neutrophils % 78.9 Lymphocytes % 16.3 Monocytes % 4.2 Eosinophils % 0.0 Basophils % 0.1 Nucleated RBC % (0.0-0.3) % 0.0 Absolute Neutrophils (1.2-6.7) 10^3/uL 7.56 H Absolute Lymphocytes (1.2-3.4) 10^3/uL 1.56 Absolute Monocytes (0.1-0.8) 10^3/uL 0.40 Absolute Eosinophils (0.0-0.7) 10^3/uL 0.00 Absolute Basophils (0.0-0.2) 10^3/uL 0.01 PT (9.3-11.0) sec 8.9 L INR (0.9-1.1) 0.9 APTT (21.5-31.9) sec 23.0 Sodium (136-145) mmol/L 136 Potassium (3.5-5.1) mmol/L 4.1 Chloride (98-107) mmol/L 101 Carbon Dioxide (21.0-32.0) mmol/L 30.7 Anion Gap (3-11) mmol/L 4.3 BUN (7-18) mg/dL 15 Creatinine (0.70-1.30) mg/dL 1.0 Est GFR (CKD-EPI 2020) (mL/min/1.73m2) 93.42 Glucose (74-106) mg/dL 148 H Calcium (8.5-10.1) mg/dL 9.1 Magnesium (1.8-2.4) mg/dL 2.1 Total Bilirubin (0.2-1.0) mg/dL 0.4 AST (15-37) U/L 11 L ALT (16-63) U/L 27 Alkaline Phosphatase (46-116) U/L 56 Total Protein (6.4-8.2) g/dL 7.0 Albumin (3.4-5.0) g/dL 3.1 L TSH (0.36-3.74) uIU/mL 1.36 Urine Color (Yellow) Urine Clarity (Clear) Urine pH (5-8) Ur Specific [place] (1.005-1.025) Urine Protein (Negative) mg/dL Urine Ketones (Negative) mg/dL Urine Blood (Negative) Urine Nitrite (Negative) Urine Bilirubin (Negative) Urine Urobilinogen (Up to 0.2) mg/dL Ur Leukocyte Esterase (Negative) Urine Glucose (Negative) mg/dL Range/Units 11/28/22 17:43 WBC (4.4-10.8) 10^3/uL RBC (4.36-5.78) 10^6/uL Hgb (13.5-17.5) g/dL Hct (40.0-50.0) % MCV (80-95) fL MCH (27.0-33.0) pg MCHC (32.0-36.0) % RDW (11.8-14.1) % Plt Count (130-400) 10^3/uL MPV (8.0-11.0) fL Immature Gran % Neutrophils % Lymphocytes % Monocytes % Eosinophils % Basophils % Nucleated RBC % (0.0-0.3) % Absolute Neutrophils (1.2-6.7) 10^3/uL Absolute Lymphocytes (1.2-3.4) 10^3/uL Absolute Monocytes (0.1-0.8) 10^3/uL Absolute Eosinophils (0.0-0.7) 10^3/uL Absolute Basophils (0.0-0.2) 10^3/uL PT (9.3-11.0) sec INR (0.9-1.1) APTT (21.5-31.9) sec Sodium (136-145) mmol/L Potassium (3.5-5.1) mmol/L Chloride (98-107) mmol/L Carbon Dioxide (21.0-32.0) mmol/L Anion Gap (3-11) mmol/L BUN (7-18) mg/dL Creatinine (0.70-1.30) mg/dL Est GFR (CKD-EPI 2020) (mL/min/1.73m2) Glucose (74-106) mg/dL Calcium (8.5-10.1) mg/dL Magnesium (1.8-2.4) mg/dL Total Bilirubin (0.2-1.0) mg/dL AST (15-37) U/L ALT (16-63) U/L Alkaline Phosphatase (46-116) U/L Total Protein (6.4-8.2) g/dL Albumin (3.4-5.0) g/dL TSH (0.36-3.74) uIU/mL Urine Color (Yellow) Yellow Urine Clarity (Clear) Clear Urine pH (5-8) 7.0 Ur Specific [place] (1.005-1.025) 1.020 Urine Protein (Negative) mg/dL Negative Urine Ketones (Negative) mg/dL Negative Urine Blood (Negative) Negative Urine Nitrite (Negative) Negative Urine Bilirubin (Negative) Negative Urine Urobilinogen (Up to 0.2) mg/dL 0.2 Ur Leukocyte Esterase (Negative) Negative Urine Glucose (Negative) mg/dL Negative HPI General Mode of arrival: ambulatory. Date/Time Provider Initiated Documentation: 11/28/22 15:05. Limitations to Documentation: no limitations. Information obtained by: patient and family. HPI Narrative: 47yo male with metastatic cancer (primary tonsillar/squamous) on active chemotherapy last infusion , hx DVT/PE on qu, presenting for worsening left sided facial droop x several weeks to months with new onset intermittent confusion worsening in frequency x 3 weeks, much worse this week after his chemo infusion. Reports episode of not known how to get to places that he is familiar with, both in his house and out in the world as well as some word finding difficulties. Always remained oriented to person/place/time. Some associated lightheadedness but does not feel like he is going to pass out and has never lost conciousness. Baseline neuropathy, not worsening. No focal weakness aside from face. He is otherwise in his usual state of health with no fevers, chills, rash, chest pain, difficulty breathing, abdominal pain, nausea, vomiting, diarrhea, headache, focal weakness, dysuria, hematuria, cough/rhinnorhea, or other concerns. Related Data Home Medications Medication Instructions Recorded Confirmed multivitamin with minerals (One 1 ea PO DAILY 10/01/12 09/10/22 Daily Complete tablet) pembrolizumab 25 mg/mL intravenous 200 mg IV Q3W 05/23/22 09/10/22 solution (Keytruda) acetaminophen 500 mg capsule 500 mg PO Q6H PRN 06/07/22 11/28/22 fluticasone propionate 50 1 spray intranasal BID 06/07/22 11/28/22 mcg/actuation nasal spray,suspension (Flonase Allergy Relief) gabapentin 300 mg capsule 300 mg PO TID 06/07/22 11/28/22 lorazepam 0.5 mg tablet 0.5 mg PO QID PRN 06/07/22 11/28/22 multivitamin 1 tab PO DAILY 06/07/22 11/28/22 ondansetron HCl 8 mg tablet 8 mg PO Q8H 06/07/22 09/10/22 dexamethasone 4 mg tablet 4 mg PO BID #90 tabs 11/28/22 omeprazole 20 mg tablet,delayed 20 mg PO DAILY 11/28/22 11/28/22 release sulfamethoxazole 400 1 tab PO DAILY 11/28/22 11/28/22 mg-trimethoprim 80 mg tablet Previous Rx's Medication Instructions Recorded dexamethasone 4 mg tablet 4 mg PO BID #90 tabs 11/28/22 Allergies Allergy/AdvReac Type Severity Reaction Status Date / Time MAGNESIUM SILICAT Allergy Intermediate ITCHING Uncoded 05/23/22 18:00 General Stated Complaint: GenMedical MARYBETH: 3 Review of Systems Narrative: see HPI PFSH All Active Problems (Updated 11/28/22 @ 18:38 by Gina Garcia MD) Metastatic cancer (Acute) Facial droop (Acute) 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), Positive HPV per pt, -treated with radiation and chemo finished Mar 2019 retx with radiation at [facility] 10/2020, followed by Oncology/ENT at [facility] Atopic dermatitis (Chronic) Migraine (Acute) Medical History Chronic cough Drug-induced nausea and vomiting Eosinophilic esophagitis Neck mass Tonsil cancer Trismus Vocal cord paralysis Surgical History History of esophagogastroduodenoscopy (EGD) KNEE SURGERY 02/2011 RIGHT Nasal septoplasty Family History Father Diabetes Essential hypertension Brother Diabetes Grandfather Heart disease Grandmother Heart disease FAMILY HISTORY Hyperlipidemia Brother Cancer KIDNEY CANCER Paternal Uncle Cancer ESOPHAGEAL CANCER Social History Smoking/Tobacco Use Status: Former Tobacco Use tobacco type: cigarettes Quit Date: 03/06/99 Second Hand Exposure: Yes Smoking risk assessment performed?: Yes Alcohol Intake: former Details: ONCE TO TWICE PER WEEK Drug use: Occasionally Substance use type: marijuana Caregiver/Support person: No Household members: spouse and children Housing: house Communication Needs: None Do you need help understanding health information?: Never Pets and animals: Yes Pets and animals: dog(s) Sexually active: Yes Do you think of yourself as: straight/heterosexual Current gender identity: male What is your relationship status?: How often do you talk on the phone with friends or family?: never How often do you get together with friends or relatives?: once per week How often do you attend spiritism or restorationist services?: decline to answer Do you belong to any clubs or organized social groups?: no Panel score (0-1 are the most socially isolated patients): 1 Duration: < 15 minutes/day Frequency: 1-2 times per week Jordyn/Moravian: Congregational Special jordyn needs: No Seatbelt use: always Helmet use: Yes Helmet use: always Drive intox or ride w/intox 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 Head: Normocephalic, atraumatic Neck: Trachea midline, Neck supple. ENT: MMM. No oropharygeal lesions or exudate. Cardiac: RRR, no murmurs appreciated Resp: No respiratory distress. CTAB. Abd: Soft, non-distended, nontender : No suprapubic tenderness. Extremities: No deformities. No peripheral edema. Neuro: GCS 15. PERRL. EOMI. Pronounced left facial droop with dysarthria. EOM intact, no gaze preference or deviation, no nystagmus. Normal sensation in V1, V2, and V3 segments bilaterally. Normal hearing to speech. Normal palatal elevation, no uvular deviation. Midline tongue protrusion Motor- 5/5 strength symmetric bilateral upper and lower extremities including shoulder abductors/adductors, elbow flexors/extensors, wrist flexors/extensors, finger abductors/adductors, hipflexors/extensors, knee flexors/extensors, ankle dorsiflexors and planter flexors. Sensation- Intact to light touch and symmetric multiple dermatomes including upper and lower extremities Coordination- No dysmetria on finger to nose Gait/station: Normal stance. No truncal ataxia. Steady gait with equal normal steps Course Vital Signs Vital signs: Vital Signs Temperature 36.8 C 11/28/22 13:42 Pulse 66 11/28/22 13:42 Respiratory Rate 15 11/28/22 13:42 Blood Pressure 132/80 11/28/22 13:42 Pulse Oximetry 98 11/28/22 13:42 Temperature 36.8 C 11/28/22 13:42 Temperature Source Temporal Artery Scan 11/28/22 13:42 Pulse 66 11/28/22 13:42 Respiratory Rate 15 11/28/22 13:42 Respiratory Effort Normal 11/28/22 14:51 Respiratory Depth Normal 11/28/22 14:51 Respiratory Pattern Normal 11/28/22 14:51 Blood Pressure 132/80 11/28/22 13:42 Blood Pressure Position Sitting 11/28/22 13:42 Pulse Oximetry 98 11/28/22 13:42 Oxygen Delivery Method Room Air 11/28/22 13:42 Oxygen Flow Rate 0 11/28/22 13:42 Pain Level 0 11/28/22 13:42
[2022-11-28 15:51] LABS: Abs Immature Grans 0.05 10^3/uL (0.0-0.06); Absolute Basophil Count 0.01 10^3/uL (0.0-0.2); Absolute Lymphocyte Count 1.56 10^3/uL (1.2-3.4); Absolute Neutrophil Count 7.56 10^3/uL (1.2-6.7); Basophils % 0.1; HCT 39.2 % (40.0-50.0); HGB 13.4 g/dL (13.5-17.5); Immature Grans % 0.5; Lymphocytes % 16.3; MCH 32.2 pg (27.0-33.0); MCHC 34.2 % (32.0-36.0); MCV 94 fL (80-95); MPV 8.1 fL (8.0-11.0); Monocytes % 4.2; Neutrophils % 78.9; Platelet Count 152 10^3/uL (130-400); RBC 4.16 10^6/uL (4.36-5.78); RDW 14.4 % (11.8-14.1); RDW-SD 49.6 fL; WBC 9.58 10^3/uL (4.4-10.8)
[2022-11-28] MEDS: Gadoterate meglumine 20 ML SYRINGE IVP (15:55)
[2022-11-28 16:04] LABS: INR 0.9 (0.9-1.1); Prothrombin Time 8.9 sec (9.3-11.0)
[2022-11-28 16:15] LABS: ALT 27 U/L (16-63); AST 11 U/L (15-37); Albumin 3.1 g/dL (3.4-5.0); Alkaline Phosphatase 56 U/L (46-116); Anion Gap 4.3 mmol/L (3-11); BUN 15 mg/dL (7-18); Bilirubin, Total 0.4 mg/dL (0.2-1.0); CO2 30.7 mmol/L (21.0-32.0); Calcium 9.1 mg/dL (8.5-10.1); Chloride 101 mmol/L (98-107); Estimated GFR 93.42 (mL/min/1.73m2); Glucose 148 mg/dL (74-106); Magnesium 2.1 mg/dL (1.8-2.4); Potassium 4.1 mmol/L (3.5-5.1); Sodium 136 mmol/L (136-145); TSH (W/Ref FT4) 1.36 uIU/mL (0.36-3.74)
--- NOTE | 2022-11-28 17:06 | DI.VRAD_ITS ---
PROCEDURE INFORMATION: Exam: MR Head Without and With Contrast Exam date and time: 11/28/2022 3:53 PM Age: 47 years old Clinical indication: Other: L facial weakness x weeks, chemotherapy TECHNIQUE: Imaging protocol: Magnetic resonance imaging of the head without and with contrast. COMPARISON: 1. MR BRAIN ORBIT FACE NECK WO/W 07/31/2019 12:59 PM 2. MR BRAIN WO/W 07/31/2019 12:25 PM FINDINGS: Brain: There is abnormal leptomeningeal and extra-axial mass with enhancement of the caudal left posterior fossa extending through the left jugular foramen and, to a lesser degree, the hypoglossal canal. There appears to be direct invasion of the caudal anterior left cerebellum extending to the cerebellopontine angle, and likely tumor surrounding and involving the left 9th through 12th cranial nerves. There is probable abutment of the cisternal left 7th and 8th cranial nerves. Overall, the enhancing mass is estimated to measure 2.4 x 1.9 x 2.2 cm (series [id number] image 37 and series 44740, image 93) with adjacent edema extending to the left cerebellum. There is question of direct invasion of the left internal jugular vein at the jugular bulb and extending to the left upper neck versus bland thrombus. Additional tiny focus of enhancement at the right porous acusticus measures up to 4 mm (series [id number], image 47), new as compared to the prior examination. 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 No acute infarction. No acute intracranial hemorrhage. Cerebral ventricles: Normal. No ventriculomegaly. Pituitary gland and sella: No gross mass. Bones/joints: Abnormal edema and enhancement at the left base of skull involving the left lateral clivus, left occipital condyle, and left petrous bone extending to the left petrous apex likely represents direct osseous involvement with tumor. Paranasal sinuses: Normal as visualized. No acute sinusitis. Mastoid air cells: Normal as visualized. No mastoid effusion. Orbital cavities: Unremarkable. Oral cavity: Atrophy of the left hemitongue is incompletely evaluated. This is consistent with chronic denervation changes and likely represents end-stage evolution of previously seen left tongue enlargement on 07/31/2019. Soft tissues: See Oral cavity finding. IMPRESSION: 1. Enhancing predominantly extra-axial mass involving the left skull base and left posterior fossa concerning for residual/recurrent tumor given the patient's history. The location and imaging appearance are concerning for perineural spread of tumor with intracranial and left cerebellar involvement/direct invasion as well as likely direct invasion of the left base of skull. Metastatic disease is a differential consideration. 2. Questionable tumor thrombus versus bland thrombus involving the left jugular bulb and cranial left internal jugular vein. 3. Additional focus of enhancement at the right porous acusticus may represent leptomeningeal metastatic disease. Dictated and Authenticated by: Edward Brooks MD. Ordering:SHOAIB Fuentes MD
[2022-11-28 17:45] VITALS: O2SAT 97
[2022-11-28 17:46] VITALS: BP 133/80; PULSE 46; O2SAT 97
[2022-11-28 17:55] LABS: Bilirubin Negative (Negative); Blood Negative (Negative); Clarity Clear (Clear); Glucose Negative (Negative); Ketones Negative (Negative); Leukocyte Esterase Negative (Negative); Nitrite Negative (Negative); Urobilinogen 0.2 mg/dL (Up to 0.2)
[2022-11-28] MEDS: Normal Saline-STERILE FIELD 0.9% 10 ML SYR (17:56)
[2022-11-28 18:01] VITALS: BP 137/89; PULSE 53
[2022-11-28 18:16] VITALS: BP 132/85; PULSE 55
[2022-11-28 18:31] VITALS: BP 116/69; PULSE 56
[2022-11-28] MEDS: Heparin 500 UNITS/5 ML SYRINGE (18:59)
== END 2022-11-28 19:04 | disposition home or self-care (01) ==
PROVIDERS: Emergency Provider Student in an Organized Health Care Education/Training Program; PCP Family Medicine
DX: R29.810 Facial weakness (principal); C09.0 Malignant neoplasm of tonsillar fossa; Z79.899 Other long term (current) drug therapy; Z79.52 Long term (current) use of systemic steroids; Z79.01 Long term (current) use of anticoagulants; R93.0 Abnormal findings on diagnostic imaging of skull and head, not elsewhere classified; C79.9 Secondary malignant neoplasm of unspecified site
CPT/HCPCS: 36415; 70553; 80053; 99285; 81003; 83735; 84443; 85025; 85610; 85730

== ENCOUNTER 2023-02-09 11:23 | Emergency (ER) | payer BC, SELFPAY ==
[2023-02-09] VITALS (36 sets, daily range): BP systolic 109–141; BP diastolic 74–90; PULSE 52–81; RESP 10–25; TEMP 36.7; O2SAT 96–100
--- NOTE | 2023-02-09 12:15 | RT.EKG_ITS ---
APPROVED REPORT Exam: Resting ECG Reason for Exam: dizzy Patient Location: E HR:84 bpm ECG Measurements Heart Rate 84 AXIS NV 124 P 49 QRSd 86 QRS 0 QT 395 T 11 QTc 467 Conclusion Sinus rhythm... V-rate 60- 99 Nonspecific T abnormalities, inferior leads...T <-0.10mV, II III aVF ST elev, probable normal early repol pattern...ST elevation, age<55
[2023-02-09 13:01] LABS: Bilirubin Negative (Negative); Blood Negative (Negative); Clarity Sl Cloudy (Clear); Glucose Negative (Negative); Ketones Negative (Negative); Leukocyte Esterase Negative (Negative); Nitrite Negative (Negative); Urobilinogen 0.2 mg/dL (Up to 0.2)
[2023-02-09] MEDS: Lactated Ringers 1,000 ML 1000 ML IV ×2 (13:07→14:23)
[2023-02-09 13:09] LABS: Abs Immature Grans 0.39 10^3/uL (0.0-0.06); HCT 34.7 % (40.0-50.0); HGB 11.9 g/dL (13.5-17.5); Lactate 1.5 mmol/L (0.6-1.4); MCH 33.8 pg (27.0-33.0); MCHC 34.3 % (32.0-36.0); MCV 99 fL (80-95); MPV 8.3 fL (8.0-11.0); Platelet Count 172 10^3/uL (130-400); RBC 3.52 10^6/uL (4.36-5.78); RDW 15.9 % (11.8-14.1); RDW-SD 56.4 fL; WBC 7.32 10^3/uL (4.4-10.8)
[2023-02-09 13:25] LABS: ALT 46 U/L (16-63); AST 13 U/L (15-37); Albumin 2.6 g/dL (3.4-5.0); Alkaline Phosphatase 64 U/L (46-116); Anion Gap 7.7 mmol/L (3-11); BUN 14 mg/dL (7-18); Bilirubin, Total 0.4 mg/dL (0.2-1.0); CO2 29.3 mmol/L (21.0-32.0); CREATININE 0.8 mg/dL (0.70-1.30); Calcium 9.3 mg/dL (8.5-10.1); Chloride 98 mmol/L (98-107); Estimated GFR 109.85 (mL/min/1.73m2); Glucose 133 mg/dL (74-106); Magnesium 2.2 mg/dL (1.8-2.4); Potassium 4.4 mmol/L (3.5-5.1); Sodium 135 mmol/L (136-145); Total Protein 6.8 g/dL (6.4-8.2)
[2023-02-09 13:36] LABS: Absolute Basophil Count 0.22 10^3/uL (0.0-0.2); Absolute Eosinophil Count 0.07 10^3/uL (0.0-0.7); Absolute Monocyte Count 0.88 10^3/uL (0.1-0.8); Absolute Neutrophil Count 4.25 10^3/uL (1.2-6.7); Atypical Lymphocytes % 4; Diff Comment Manual Differential; RBC Morphology Normal
--- NOTE | 2023-02-09 15:03 | ED.GENADUL_ITS ---
Discharge Plan Disposition Patient Disposition: Home Discharge Details Clinical Impression: Acute dehydration, Squamous cell carcinoma of head and neck Primary Care Provider: Candy Andino ED Provider: Licha Reyes Home Meds and New Rx's Prescriptions: Continued Keytruda 25 mg/mL solution 200 mg IV Q3W Rx Instructions: administer over 30 mins One Daily Complete 1 EACH tablet 1 ea PO DAILY acetaminophen 500 mg capsule 500 mg PO Q6H PRN lorazepam 0.5 mg tablet 0.5 mg PO QID PRN multivitamin Tablet 1 tab PO DAILY ondansetron HCl 8 mg tablet 8 mg PO Q8H sulfamethoxazole-trimethoprim 400-80 mg Tablet 1 tab PO DAILY omeprazole 20 mg Tablet,Delayed Release (Dr/Ec) 20 mg PO DAILY dexamethasone 4 mg tablet 4 mg PO BID Qty: 90 0RF Discharge Instructions Instructions: Dehydration (ED) Additional Instructions: Continue on boost and Ensure, try to have small frequent amounts of fluids, at least eight 8 ounce glasses of Ensure, boost, or water daily Please follow-up with your team at [facility] for further assessment and return earlier should you have new or worsening complaints Referrals: Candy Andino MD [Primary Care Provider] - Discharge Data Discharge Date/Time-TO BE ENTERED AT DEPARTURE: 02/09/23 16:01 Medical Decision Making 47-year-old male presenting with report of dehydration, given IV fluid hydration, labs do not show evidence of significant acute abnormality Appears chronically ill Vital stable Given 2 L of hydration, able to tolerate p.o., feeling marked improvement, requesting discharge home at this time Anemic, 11.9 and 34.7, this is likely chemotherapy induced and there is no evidence of active bleeding at this time, hemodynamically stable HPI General Date/Time Provider Initiated Documentation: 02/09/23 11:40 . HPI Narrative: This 47-year-old male with a history of neck and throat cancer presents with report of lightheadedness and weakness. Patient states he feels dehydrated, this does happen frequently. He is on an trial of chemotherapy at [facility] and this particular medication is making him quite ill per patient. He denies any chest pain or shortness of breath. He denies any nausea or vomiting. He denies any diarrhea. He states he has a difficult time swallowing certain foods and regular fluids secondary to his cancer. He states that his speech therapist does not feel as though he needs tube feedings at this time. Related Data Home Medications Medication Instructions Recorded Confirmed multivitamin with minerals (One 1 ea PO DAILY 10/01/12 02/09/23 Daily Complete tablet) pembrolizumab 25 mg/mL intravenous 200 mg IV Q3W 05/23/22 02/09/23 solution (Keytruda) acetaminophen 500 mg capsule 500 mg PO Q6H PRN 06/07/22 02/09/23 lorazepam 0.5 mg tablet 0.5 mg PO QID PRN 06/07/22 02/09/23 multivitamin 1 tab PO DAILY 06/07/22 02/09/23 ondansetron HCl 8 mg tablet 8 mg PO Q8H 06/07/22 02/09/23 dexamethasone 4 mg tablet 4 mg PO BID #90 tabs 11/28/22 02/09/23 omeprazole 20 mg tablet,delayed 20 mg PO DAILY 11/28/22 02/09/23 release sulfamethoxazole 400 1 tab PO DAILY 11/28/22 02/09/23 mg-trimethoprim 80 mg tablet Previous Rx's Medication Instructions Recorded dexamethasone 4 mg tablet 4 mg PO BID #90 tabs 11/28/22 Allergies Allergy/AdvReac Type Severity Reaction Status Date / Time MAGNESIUM SILICAT Allergy Intermediate ITCHING Uncoded 02/09/23 13:39 General Stated Complaint: GenMedical MARYBETH: 3 PFSH All Active Problems (Updated 02/09/23 @ 15:19 by JOSÉ MIGUEL De Jesus) Acute dehydration (Acute) 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), Positive HPV per pt, -treated with radiation and chemo finished Mar 2019 retx with radiation at [facility] 10/2020, followed by Oncology/ENT at [facility] Atopic dermatitis (Chronic) Migraine (Acute) Medical History Chronic cough Drug-induced nausea and vomiting Eosinophilic esophagitis Neck mass Tonsil cancer Trismus Vocal cord paralysis Surgical History History of esophagogastroduodenoscopy (EGD) KNEE SURGERY 02/2011 RIGHT Nasal septoplasty Family History Father Diabetes Essential hypertension Brother Diabetes Grandfather Heart disease Grandmother Heart disease FAMILY HISTORY Hyperlipidemia Brother Cancer KIDNEY CANCER Paternal Uncle Cancer ESOPHAGEAL CANCER Social History Smoking/Tobacco Use Status: Former Tobacco Use tobacco type: cigarettes Quit Date: 03/06/99 Second Hand Exposure: Yes Smoking risk assessment performed?: Yes Alcohol Intake: former Details: ONCE TO TWICE PER WEEK Drug use: Occasionally Substance use type: marijuana Caregiver/Support person: No Household members: spouse and children Housing: house Communication Needs: None Do you need help understanding health information?: Never Pets and animals: Yes Pets and animals: dog(s) Sexually active: Yes Do you think of yourself as: straight/heterosexual Current gender identity: male What is your relationship status?: How often do you talk on the phone with friends or family?: never How often do you get together with friends or relatives?: once per week How often do you attend zoroastrian or alevism services?: decline to answer Do you belong to any clubs or organized social groups?: no Panel score (0-1 are the most socially isolated patients): 1 Duration: < 15 minutes/day Frequency: 1-2 times per week Jordyn/Mandaeism: Confucianism Special jordyn needs: No Seatbelt use: always Helmet use: Yes Helmet use: always Drive intox or ride w/intox route salesman and driver: No Do you feel safe at home: Yes Do you feel safe in your relationship?: Yes Course Vital Signs Vital signs: Vital Signs Temperature 36.7 C 02/09/23 11:30 Pulse 65 02/09/23 11:30 Respiratory Rate 20 02/09/23 11:30 Blood Pressure 109/85 02/09/23 11:30 Pulse Oximetry 97 02/09/23 11:30 Temperature 36.7 C 02/09/23 13:06 Temperature Source Tympanic 02/09/23 13:06 Pulse 58 L 02/09/23 14:30 Pulse 61 02/09/23 14:50 Respiratory Rate 20 02/09/23 14:50 Respiratory Effort Normal, Non-Labored 02/09/23 13:07 Respiratory Depth Normal 02/09/23 13:07 Respiratory Pattern Normal 02/09/23 13:07 Blood Pressure 126/82 02/09/23 14:30 Blood Pressure Mean 92 02/09/23 14:30 Blood Pressure Position Sitting 02/09/23 13:06 Pulse Oximetry 98 02/09/23 14:50 Oxygen Delivery Method Room Air 02/09/23 13:06 Oxygen Flow Rate 0 02/09/23 13:06 Pain Level 0 02/09/23 13:06 Lab/Test Results Lab/Test Results: Laboratory Tests Range/Units 02/09/23 02/09/23 02/09/23 12:04 12:55 13:03 WBC (4.4-10.8) 10^3/uL 7.32 RBC (4.36-5.78) 10^6/uL 3.52 L Hgb (13.5-17.5) g/dL 11.9 L Hct (40.0-50.0) % 34.7 L MCV (80-95) fL 99 H MCH (27.0-33.0) pg 33.8 H MCHC (32.0-36.0) % 34.3 RDW (11.8-14.1) % 15.9 H Plt Count (130-400) 10^3/uL 172 MPV (8.0-11.0) fL 8.3 Immature Gran % See Differential Neutrophils % 58.0 Lymphocytes % 22.0 Atypical Lymphs % 4 Monocytes % 12.0 Eosinophils % 1.0 Basophils % 3.0 Nucleated RBC % (0.0-0.3) % 0.0 Absolute Neutrophils (1.2-6.7) 10^3/uL 4.25 Absolute Lymphocytes (1.2-3.4) 10^3/uL 1.90 Absolute Monocytes (0.1-0.8) 10^3/uL 0.88 H Absolute Eosinophils (0.0-0.7) 10^3/uL 0.07 Absolute Basophils (0.0-0.2) 10^3/uL 0.22 H RBC Morphology Normal VBG Lactate (0.6-1.4) mmol/L 1.5 H Sodium Cancelled 135 L Potassium Cancelled 4.4 Chloride Cancelled 98 Carbon Dioxide Cancelled 29.3 Anion Gap Cancelled 7.7 BUN Cancelled 14 Creatinine Cancelled 0.8 Est GFR (CKD-EPI 2020) Cancelled 109.85 Glucose Cancelled 133 H Calcium Cancelled 9.3 Magnesium (1.8-2.4) mg/dL 2.2 Total Bilirubin Cancelled 0.4 AST Cancelled 13 L ALT Cancelled 46 Alkaline Phosphatase Cancelled 64 Total Protein Cancelled 6.8 Albumin Cancelled 2.6 L Urine Color (Yellow) Yellow Urine Clarity (Clear) Sl Cloudy Urine pH (5-8) 7.0 Ur Specific [place] (1.005-1.025) 1.020 Urine Protein (Negative) mg/dL Negative Urine Ketones (Negative) mg/dL Negative Urine Blood (Negative) Negative Urine Nitrite (Negative) Negative Urine Bilirubin (Negative) Negative Urine Urobilinogen (Up to 0.2) mg/dL 0.2 Ur Leukocyte Esterase (Negative) Negative Urine Glucose (Negative) mg/dL Negative
== END 2023-02-09 16:01 | disposition home or self-care (01) ==
PROVIDERS: Student in an Organized Health Care Education/Training Program; Emergency Provider Physician Assistant; PCP Family Medicine
DX: I95.9 Hypotension, unspecified (principal); E86.0 Dehydration; R42 Dizziness and giddiness; R94.31 Abnormal electrocardiogram [ECG] [EKG]; Z85.89 Personal history of malignant neoplasm of other organs and systems
CPT/HCPCS: 36415; 80053; 93005; 96360; 99283; 81003; 83605; 83735; 85025; 93010

== ENCOUNTER 2023-02-13 13:52 | Emergency (ER) | payer BC, SELFPAY ==
[2023-02-13 14:00] VITALS: BP 105/70; PULSE 89; RESP 16; TEMP 37.2; O2SAT 96
--- NOTE | 2023-02-13 14:25 | W.ED.GENAD ---
Discharge Plan Disposition Patient Disposition: Home Discharge Details Clinical Impression: Facial paralysis on right side, Diminished hearing Primary Care Provider: Candy Andino ED Provider: Frederick Graves Home Meds and New Rx's Prescriptions: No Action Keytruda 25 mg/mL solution 200 mg IV Q3W Rx Instructions: administer over 30 mins acetaminophen 500 mg capsule 500 mg PO Q6H PRN lorazepam 0.5 mg tablet 0.5 mg PO QID PRN multivitamin Tablet 1 tab PO DAILY ondansetron HCl 8 mg tablet 8 mg PO Q8H sulfamethoxazole-trimethoprim 400-80 mg Tablet 1 tab PO DAILY omeprazole 20 mg Tablet,Delayed Release (Dr/Ec) 20 mg PO DAILY dexamethasone 4 mg tablet 4 mg PO BID Qty: 90 0RF Discharge Instructions Additional Instructions: At this time your CT scan does not show evidence of a large clot or significant new stroke. You do need an MRI. Dr. Calderon would like to follow-up with you closely for repeat MRI in [place]. Please continue to take your medications as prescribed. If you notice any worsening of your symptoms, or any new symptoms such as vomiting, diarrhea, fever, chills, shortness of breath, chest pain, numbness, weakness, or fainting , please return immediately to the emergency department for reevaluation. Please follow up with your primary care provider as soon as possible for reassessment and reevaluation. As always, it was a pleasure participating in your medical care today. Referrals: Candy Andino MD [Primary Care Provider] - Discharge Data Discharge Date/Time-TO BE ENTERED AT DEPARTURE: 02/13/23 18:14 Medical Decision Making This is a pleasant 47-year-old male with a past medical history of squamous cell carcinoma of the head and neck, who is currently receiving chemotherapy at [facility] for a new experimental trial, who chronically has had left-sided facial weakness and hearing deficit, who presents today for new right sided facial paralysis and diminished hearing. Patient states that for the last few weeks there has been a questionable slow very mild gradual diminishment of movement for the right side of his face, and a slight diminishment in right-sided hearing, however over the last 3 to 4 days he has had a rapid increase in the diminishment of these functions. He has not been able to speak well for the last few days because of this. They contacted their oncologist at [place], who recommended that patient go get evaluated immediately in the ER. He denies any new falls or traumas. is at bedside and cooperates the history. He mainly functions through garbled speech and texting. He denies any other complaints otherwise. No other modifying factors. Exam demonstrates dry mucous membranes, bilateral facial paralysis, difficulty with phonation, and unremarkable ear canals. Concern for spread of the malignancy through the blood-brain barrier,/neck areas and to the brain. We will get a CT scan, gently rehydrate evaluate for electrolyte abnormalities, monitor closely and reassess. Additionally after nursing review, patient also states that he is on Eliquis and has not missed any doses. 10:27 PM Laboratory workup has returned relatively unremarkable. Hemoglobin slightly low at 10.4, electrolytes stable. CT scan has returned, there is some decreased attenuation mass in the left cerebellum with some extension left middle cerebral peduncle. No other acute process otherwise. No clots. This certainly does not correlate with the new symptoms that the patient is feeling in his right face. No other abnormalities noted on CT scan. We did contact Dr. Lamas at [facility] neurology. We reviewed the imaging and we discussed the case. He agrees that the symptoms certainly do not correlate with the finding noted on the CT scan. Upon his review of the CAT scan there is concern that there is may also be artifactual. MRI is certainly the next step. Patient certainly does not demonstrate evidence of an acute stroke otherwise, and is not a tPA candidate as it is. Symptoms are inconsistent with acute stroke at this time. I did contact Dr. Calderon of [facility] cancer center, and discussed the case with him. We discussed keeping the patient here for MRI versus close outpatient follow-up at [place] for follow-up MRI. He would prefer that the patient go down there for his scheduled appointment this coming week for the MRI down there. Discussed the risk and benefits of this with family. They agree with the plan. They would like to go home. He did receive a 500 cc bolus and he is feeling much better. With no evidence of acute stroke noted on CT for areas that would represent his symptoms, we do suspect that the new findings that he has been having over the last few weeks will likely be evaluated on the MRI. 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 Will hold off on antivirals as the main concern is that this is being caused by his malignancy. No other acute etiologies otherwise at this time on exam. Patient stable for discharge in the meantime with close outpatient follow-up with his oncology team at [place]. I have extensively reviewed the treatment plan and discharge instructions with the patient and their family. I have addressed all patient concerns at this time. The patient and family was made aware of what symptoms to monitor for that would warrant a return to the emergency department. Discussed the plan with the patient and family, they demonstrate verbal understanding and agreement with our assessment and plan at this time. The documentation in this chart was dictated using [employer] dictation software. Please excuse any dictation errors. FINDINGS: CT Head W/O and W: Ventricles and Extra axial spaces: Normal in size and morphology for the patient's age. Hemorrhage: None. Cerebral parenchyma: There is decreased attenuation now seen in the left cerebellum with some extension into the left middle cerebellar peduncle. No enhancement is seen following contrast administration. Midline shift: None. Brainstem/Cerebellum: Normal. Calvarium: Normal. Visualized Paranasal sinuses/Mastoids: Clear. Soft Tissues: Unremarkable. Enhancement: Unremarkable. CTA Neck W: Common Carotid: Right: No dissection, occlusion or significant stenosis. Left: No dissection, occlusion or significant stenosis. External Carotid: Right: No occlusion or significant stenosis. Left: No occlusion or significant stenosis. Internal Carotid: Right: No dissection, occlusion or significant stenosis. Left: No dissection, occlusion or significant stenosis. Vertebral Artery: Right: No dissection, occlusion or significant stenosis. Left: No dissection, occlusion or significant stenosis. Lung Apices: There is a left upper lobe infiltrate. Bones: Within normal limits for the patient's age. Soft Tissues: There is a right [id number] catheter which is partially visualized. There are postsurgical changes seen in the left neck. Thyroid gland: Unremarkable. CTA Brain W: Internal Carotid Arteries: Mild atherosclerosis of the right internal carotid artery. No aneurysm, occlusion or significant stenosis. Anterior Cerebral Arteries: Right: No aneurysm, occlusion or significant stenosis. Left: No aneurysm, occlusion or significant stenosis. Middle Cerebral Arteries: Right: No aneurysm, occlusion or significant stenosis. Left: No aneurysm, occlusion or significant stenosis. Posterior Cerebral Arteries: Right: No aneurysm, occlusion or significant stenosis. Left: No aneurysm, occlusion or significant stenosis. Vertebral Arteries: Right: No aneurysm, occlusion or significant stenosis. Left: No aneurysm, occlusion or significant stenosis. Basilar Artery: No aneurysm, occlusion or significant stenosis. IMPRESSION: 1. No large vessel occlusion or significant stenosis on the CT angiography of the head. 2. There is a new area of decreased attenuation in the left cerebellum extending into the left middle cerebellar peduncle suspicious for an infarct. No enhancement is seen following contrast administration. An MRI is recommended for further evaluation. 3. No occlusion or significant stenosis on the CT angiography of the neck. 4. A small infiltrate is seen in the left upper lobe. Pneumonia versus atelectasis. Please correlate clinically. 5. Findings were discussed with Dr. Graves at 4:45 p.m. on 02/13/2023. HPI General Date/Time Provider Initiated Documentation: 02/13/23 13:55. HPI Narrative: This is a pleasant 47-year-old male with a past medical history of squamous cell carcinoma of the head and neck, who is currently receiving chemotherapy at [facility] for a new experimental trial, who chronically has had left-sided facial weakness and hearing deficit, who presents today for new right sided facial paralysis and diminished hearing. Patient states that for the last few weeks there has been a questionable slow very mild gradual diminishment of movement for the right side of his face, and a slight diminishment in right-sided hearing, however over the last 3 to 4 days he has had a rapid increase in the diminishment of these functions. He has not been able to speak well for the last few days because of this. They contacted their oncologist at [place], who recommended that patient go get evaluated immediately in the ER. He denies any new falls or traumas. is at bedside and cooperates the history. He mainly functions through garbled speech and texting. He denies any other complaints otherwise. No other modifying factors. Related Data Home Medications Medication Instructions Recorded Confirmed pembrolizumab 25 mg/mL intravenous 200 mg IV Q3W 05/23/22 02/13/23 solution (Keytruda) acetaminophen 500 mg capsule 500 mg PO Q6H PRN 06/07/22 02/13/23 lorazepam 0.5 mg tablet 0.5 mg PO QID PRN 06/07/22 02/13/23 multivitamin 1 tab PO DAILY 06/07/22 02/13/23 ondansetron HCl 8 mg tablet 8 mg PO Q8H 06/07/22 02/13/23 dexamethasone 4 mg tablet 4 mg PO BID #90 tabs 11/28/22 02/13/23 omeprazole 20 mg tablet,delayed 20 mg PO DAILY 11/28/22 02/13/23 release sulfamethoxazole 400 1 tab PO DAILY 11/28/22 02/13/23 mg-trimethoprim 80 mg tablet Previous Rx's Medication Instructions Recorded dexamethasone 4 mg tablet 4 mg PO BID #90 tabs 11/28/22 Allergies Allergy/AdvReac Type Severity Reaction Status Date / Time MAGNESIUM SILICAT Allergy Intermediate ITCHING Uncoded 02/09/23 13:39 General Stated Complaint: GenMedical MARYBETH: 3 Review of Systems All systems reviewed & are unremarkable except as noted in HPI and below PFSH All Active Problems (Updated 02/13/23 @ 17:58 by Frederick Graves DO) Diminished hearing (Acute) Facial paralysis on right side (Acute) Acute dehydration (Acute) 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 [place] Atopic dermatitis (Chronic) Migraine (Acute) Medical History Neck mass Tonsil cancer Drug-induced nausea and vomiting Trismus Vocal cord paralysis Eosinophilic esophagitis Chronic cough Surgical History History of esophagogastroduodenoscopy (EGD) Nasal septoplasty KNEE SURGERY 02/2011 RIGHT Family History Father Diabetes Essential hypertension Brother Diabetes Grandfather Heart disease Grandmother Heart disease FAMILY HISTORY Hyperlipidemia Brother Cancer KIDNEY CANCER Paternal Uncle Cancer ESOPHAGEAL CANCER Social History Smoking/Tobacco Use Status: Former Tobacco Use tobacco type: cigarettes Quit Date: 03/06/99 Second Hand Exposure: Yes Smoking risk assessment performed?: Yes Alcohol Intake: current Alcohol Intake frequency: a few times a month Alcohol type: beer and hard liquor Details: ONCE TO TWICE PER WEEK Drug use: Occasionally Substance use type: marijuana Caregiver/Support person: No Household members: spouse and children Housing: house Communication Needs: None Do you need help understanding health information?: Never Pets and animals: Yes Pets and animals: dog(s) Sexually active: Yes Do you think of yourself as: straight/heterosexual Current gender identity: male What is your relationship status?: How often do you talk on the phone with friends or family?: never How often do you get together with friends or relatives?: once per week How often do you attend pentecostal or uatsdin services?: decline to answer Do you belong to any clubs or organized social groups?: no Panel score (0-1 are the most socially isolated patients): 1 Duration: < 15 minutes/day Frequency: 1-2 times per week Jordyn/Alevism: Jehovah'S Witness Special jordyn needs: No Seatbelt use: always Helmet use: Yes Helmet use: always Drive intox or ride w/intox milk 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 3.ENT: Atraumatic external nose and ears. Dry MM. Neck: Symmetric, trachea midline, No thyromegaly. No ability to smile bilaterally or raise the eyebrows. No unilateral tongue deviation. Ear canals are clear with no evidence of cerumen impaction 4.CVS: +S1/S2, No murmurs or gallops. Peripheral pulses 2+ and equal in all extremities. Brisk capillary refill in all extremities. 5.RESP: Unlabored respiratory effort. Clear to auscultation bilaterally. No wheezes rales or rhonchi 6.GI: Soft, Nontender/Nondistended, No hepatosplenomegaly. No guarding or rebound. 7.MSK: Normocephalic/Atraumatic, Extremities w/o deformity or ttp No cyanosis or clubbing, Normal movement of all extremities 8.Skin: Warm, Dry. No rashes or lesions. 9.Neuro: Cranial nerves demonstrated deficit for any significant facial movements. He is unable to smile. Both sides of the face are relatively paralyzed. Unable to move the eyebrows. Ocular movements are all intact. All 6 cardinal planes of vision are fully intact. No evidence of rotatory or vertical nystagmus. The patient demonstrated a normal [id number], good dexterity. There was no evidence of dysdiadochokinesia. Patient was able to ambulate at his baseline. No wide-based gait. Normal [id number]. Sensation was intact bilaterally as well as muscle strength bilaterally for all extremities. Patient was able to verbalize butter cup but B/T/R sounds were all notably diminished 10.Psych: (AAO) x3. Appropriate mood and affect Course Vital Signs Vital signs: Vital Signs Temperature 37.2 C 02/13/23 14:00 Pulse 89 02/13/23 14:00 Respiratory Rate 16 02/13/23 14:00 Blood Pressure 105/70 02/13/23 14:00 Pulse Oximetry 96 02/13/23 14:00 Temperature 37.2 C 02/13/23 14:00 Pulse 89 02/13/23 14:00 Respiratory Rate 16 02/13/23 14:00 Blood Pressure 105/70 02/13/23 14:00 Pulse Oximetry 96 02/13/23 14:00
[2023-02-13] MEDS: Normal Saline 500 ML IV (14:56)
[2023-02-13 15:01] VITALS: RESP 18; O2SAT 98
[2023-02-13 15:01] LABS: Abs Immature Grans 0.58 10^3/uL (0.0-0.06); Absolute Basophil Count 0.04 10^3/uL (0.0-0.2); Absolute Eosinophil Count 0.03 10^3/uL (0.0-0.7); Absolute Lymphocyte Count 1.55 10^3/uL (1.2-3.4); Absolute Neutrophil Count 4.01 10^3/uL (1.2-6.7); Basophils % 0.6; Eosinophils % 0.5; HCT 29.8 % (40.0-50.0); HGB 10.4 g/dL (13.5-17.5); Immature Grans % 8.9; Lymphocytes % 23.8; MCH 34.4 pg (27.0-33.0); MCHC 34.9 % (32.0-36.0); MCV 99 fL (80-95); MPV 8.5 fL (8.0-11.0); Monocytes % 4.6; Neutrophils % 61.6; Nucleated RBC 1.2 % (0.0-0.3); Platelet Count 164 10^3/uL (130-400); RBC 3.02 10^6/uL (4.36-5.78); RDW 15.6 % (11.8-14.1); RDW-SD 56.5 fL; WBC 6.51 10^3/uL (4.4-10.8)
[2023-02-13 15:10] LABS: Diff Comment Diff Reviewed; RBC Morphology Normal
[2023-02-13 15:22] LABS: ALT 38 U/L (16-63); AST 11 U/L (15-37); Albumin 2.4 g/dL (3.4-5.0); Alkaline Phosphatase 68 U/L (46-116); Anion Gap 9.8 mmol/L (3-11); BUN 17 mg/dL (7-18); Bilirubin, Total 0.4 mg/dL (0.2-1.0); CO2 25.2 mmol/L (21.0-32.0); Calcium 8.4 mg/dL (8.5-10.1); Chloride 99 mmol/L (98-107); Estimated GFR 93.42 (mL/min/1.73m2); Glucose 231 mg/dL (74-106); Magnesium 1.8 mg/dL (1.8-2.4); Sodium 134 mmol/L (136-145)
[2023-02-13] MEDS: Omnipaque 350 MG/ML 100 ML BTL IJ (15:55)
[2023-02-13] MEDS: Normal Saline - Diluent 50 ML VIAL IJ (15:57)
--- NOTE | 2023-02-13 16:18 | DI.CT_ITS ---
Exam(s) CT BRAIN NECK CTA EXAM: CT BRAIN NECK CTA CLINICAL HISTORY: hx of head/neck CA. Now cant smile/hear right side. TECHNIQUE: Imaging Protocol: Axial CT angiography was performed with multi-slice acquisition and mu lti-planar and/or 3D reconstructions. CONTRAST MATERIAL: Intravenous: Omnipaque 350 contrast volume:85 mL COMPARISON: CT CT HEAD WO from 07/31/[address] ABDOMEN PELVIS W from 09/10/2022 FINDINGS: CT Head W/O and W: Ventricles and Extra axial spaces: Normal in size and morphology for the patient's age. Hemorrhage: None. Cerebral parenchyma: There is decreased attenuation now seen in the left cerebellum with some extensi on into the left middle cerebellar peduncle. No enhancement is seen following contrast administratio n. Midline shift: None. Brainstem/Cerebellum: Normal. Calvarium: Normal. Visualized Paranasal sinuses/Mastoids: Clear. Soft Tissues: Unremarkable. Enhancement: Unremarkable. CTA Neck W: Common Carotid: Right: No dissection, occlusion or significant stenosis. Left: No dissection, occlusion or significant stenosis. External Carotid: Right: No occlusion or significant stenosis. Left: No occlusion or significant stenosis. Internal Carotid: Right: No dissection, occlusion or significant stenosis. Left: No dissection, occlusion or significant stenosis. Vertebral Artery: Right: No dissection, occlusion or significant stenosis. Left: No dissection, occlusion or significant stenosis. Lung Apices: There is a left upper lobe infiltrate. Bones: Within normal limits for the patient's age. Soft Tissues: There is a right Iiwzvh-I-Gdhl catheter which is partially visualized. There are posts urgical changes seen in the left neck. Thyroid gland: Unremarkable. CTA Brain W: Internal Carotid Arteries: Mild atherosclerosis of the right internal carotid artery. No aneurysm, o cclusion or significant stenosis. Anterior Cerebral Arteries: Right: No aneurysm, occlusion or significant stenosis. Left: No aneurysm, occlusion or significant stenosis. Middle Cerebral Arteries: Right: No aneurysm, occlusion or significant stenosis. Left: No aneurysm, occlusion or significant stenosis. Posterior Cerebral Arteries: Right: No aneurysm, occlusion or significant stenosis. Left: No aneurysm, occlusion or significant stenosis. Vertebral Arteries: Right: No aneurysm, occlusion or significant stenosis. Left: No aneurysm, occlusion or significant stenosis. Basilar Artery: No aneurysm, occlusion or significant stenosis. IMPRESSION: 1. No large vessel occlusion or significant stenosis on the CT angiography of the head. 2. There is a new area of decreased attenuation in the left cerebellum extending into the left middle cerebellar peduncle suspicious for an infarct. No enhancement is seen following contrast administra tion. An MRI is recommended for further evaluation. 3. No occlusion or significant stenosis on the CT angiography of the neck. 4. A small infiltrate is seen in the left upper lobe. Pneumonia versus atelectasis. Please correlat e clinically. 5. Findings were discussed with Dr. Graves at 4:45 p.m. on 02/13/2023. RADIATION DOSE DELIVERED: Total DLP DATA REPOSITORY: All CT scans at this facility are submitted to the National Radiology Data Registry (NRDR) Dose Index Registry (DIR) with the [employer] ([employer]). RADIATION OPTIMIZATION: All CT scans at this facility use at least one of these dose optimization te chniques: automated exposure control; mA and/or kV adjustment per patient size (includes targeted exa ms where dose is matched to clinical indication); or iterative reconstruction.
[2023-02-13 18:12] VITALS: BP 125/72; PULSE 79; RESP 18; TEMP 37; O2SAT 94
== END 2023-02-13 18:14 | disposition home or self-care (01) ==
PROVIDERS: Emergency Provider Student in an Organized Health Care Education/Training Program; PCP Family Medicine
DX: G51.0 Bell's palsy (principal); H91.91 Unspecified hearing loss, right ear; R13.13 Dysphagia, pharyngeal phase; C76.0 Malignant neoplasm of head, face and neck; Z92.21 Personal history of antineoplastic chemotherapy; Z79.01 Long term (current) use of anticoagulants; Z87.891 Personal history of nicotine dependence
CPT/HCPCS: 70496; 70498; 80053; 96360; 99285; 83735; 85025; 99284; J3490